=== PATIENT | female | born 1975 | race Caucasian/White ===

== ENCOUNTER 2019-07-04 08:47 | Emergency (ER) | payer SELFPAY ==
[2019-07-04 08:49] VITALS: BP 131/76; PULSE 99; RESP 18; TEMP 37; O2SAT 96; BMI 25.0
--- NOTE | 2019-07-04 09:04 | ED.VISSUMM ---
- ER Visit Summary Date of Service: 07/04/19 Chief Complaint: Right breast abscess History of Present Illness: The patient is a 43 F who presents with abscess to her right breast that is been getting progressively worse over the past 2 weeks. Patient states she is currently on Augmentin for this. Patient states that it began to drain a little bit last night. Patient presents today requesting incision and drainage of the abscess. Patient denies any fevers or chills. Patient admits to some nausea but denies any vomiting. Patient states the area is painful with palpation and pressure. Physical Examination: Vital signs are stable. Patient is afebrile. Patient is in no acute distress. Skin is warm and dry. There is a tender fluctuant area over the inferior aspect of the right breast. There is minimal purulent drainage. There is some induration and mild erythema around the abscess area. There is no streaking noted. Heart was regular rate and rhythm. Lungs are clear and equal bilaterally. Abdomen is soft and nontender. Emergency Department Course and Treatment: The area was cleaned and anesthetized with 1% plain lidocaine locally. The wound was opened with an 11 blade scalpel. A moderate amount of purulent drainage was expressed. Bacitracin gauze dressing was applied. Patient tolerated the procedure well. Patient was instructed to continue her Augmentin as previously prescribed. Patient was instructed to follow-up with the [facility] in 3-5 days for wound recheck. Patient understood and was agreeable with plan. All questions were answered. Disposition: Discharge home Impression: Right breast abscess This note was generated with [employer] dictation software. It may contain incorrect words, spelling, and punctuation that were not noted in review of the chart prior to signing ED Disposition - Plan for ED Patient: Disposition: Home or Assisted Living Diagnosis: Abscess of right breast Instructions: ABSCESS, Incision and Drainage Referrals: [facility] Styles,Maci Hernadez [Primary Care Provider] - 3-5 Days
[2019-07-04 10:14] VITALS: BP 128/62; PULSE 73; RESP 15; O2SAT 97
== END 2019-07-04 10:16 | disposition home or self-care (01) ==
PROVIDERS: Emergency Provider Emergency Medicine
DX: N61.1 Abscess of the breast and nipple (principal); F17.200 Nicotine dependence, unspecified, uncomplicated
CPT/HCPCS: 10060; 99283

== ENCOUNTER 2023-07-08 07:39 | Emergency (ER) | payer OTHER, SELFPAY ==
[2023-07-08 07:40] VITALS: BP 151/101; PULSE 108; RESP 16; TEMP 36.3; O2SAT 93; BMI 23.3
--- NOTE | 2023-07-08 08:09 | ED.VIS.BACK ---
HPI History of Present Illness Chief Complaint: Back Informant: patient Narrative Narrative: 47-year-old female brought to the emergency department chief complaint of upper back pain. Patient states that on Monday she was carrying a [employer] and she turned and had pain in the lower neck upper back. She states that it is very painful for her to move. She states that she has a burning sensation down the posterior aspect of her left arm and into her little and ring finger. She denies any muscle weakness. No fevers or rashes. Patient states that she has herniated disc in her low back that often cause episodic pain. She states that she has never had pain in this area. She has been trying I[employer] stretching and put a towel underneath her neck to see if that would help. She went to work today and was brought here by coworker for evaluation. She notes that she has been on prednisone in the past which has helped her low back but does not like the way it makes her feel. [facility] Medical History (Updated 07/08/23 @ 08:[address] Chirag Cuadra, DO) Lumbar disc herniation Home Medications cetirizine 10 mg capsule (Zyrtec) 10 mg PO DAILY 11/21/15 [History Last Taken Unknown] multivitamin (Daily Multiple tablet) 1 ea PO DAILY 11/24/15 [History Last Taken Unknown] B-complex with vitamin C 1 ea PO DAILY 01/08/17 [History Last Taken Unknown] prednisone 20 mg tablet 40 mg (2 x 20 mg) PO DAILY ##10 01/08/17 [Rx Last Taken Unknown] Amox-Clav 875-125 mg Tablet 1 tab PO BID 07/04/19 [History Last Taken Unknown] cyclobenzaprine 10 mg tablet 10 mg PO TID PRN Muscle Spasm #15 TABLETS 07/08/23 [Rx Last Taken Unknown] naproxen 500 mg tablet 500 mg PO BID #14 tabs 07/08/23 [Rx Last Taken Unknown] oxycodone-acetaminophen 5 mg-325 mg tablet 1 tab PO Q6H PRN PRN Pain 3 days #12 TABLETS 07/08/23 [Rx Last Taken Unknown] prednisone 20 mg tablet 40 mg (2 x 20 mg) PO DAILY #10 TABLETS 07/08/23 [Rx Last Taken Unknown] Allergy/AdvReac Type Severity Reaction Status Date / Time sulfamethoxazole AdvReac Nausea/Vom/ Verified 07/08/23 07:39 [From Bactrim] Diarrhea trimethoprim [From Bactrim] AdvReac Nausea/Vom/ Verified 07/08/23 07:39 Diarrhea Social History Smoking Status: Current every day smoker tobacco type: cigarettes ROS ROS ED Constitutional Constitutional ED: Denies chills, fever(s) or weight loss Eyes Eyes: Denies change in vision or diplopia ENT ENT ED: Denies ear pain, rhinorrhea or sore throat Cardiovascular Cardiovascular: Denies chest pain, orthopnea, palpitations or racing heartbeat Respiratory/Chest Respiratory/Chest: Denies cough, dyspnea or orthopnea Gastrointestinal Gastrointestinal: Denies abdominal pain, diarrhea, nausea or vomiting Genitourinary Genitourinary ED: Denies dysuria, hematuria or urinary frequency Musculoskeletal Musculoskeletal: Reports back pain and neck pain; Denies arthralgias or myalgias Integumentary Denies abscess or rash Neurologic Neurologic: Reports paresthesias LUE; Denies headache(s) or weakness Psychiatric Psychiatric: Denies anxiety, depression, suicidal ideation or suicidal thoughts Endocrine Endocrinology: Denies polydipsia, polyphagia or polyuria Allergic/Immunologic Allergic/Immunologic ED: Denies mouth swelling, tongue swelling or urticaria EXAM Physical Exam Const Vital Signs: 07/08/23 07:40 Temperature 97.3 F L Temperature Source Temporal Pulse Rate 108 H Respiratory Rate 16 Blood Pressure 151/101 H Blood Pressure Mean 117 Pulse Ox 93 Oxygen Delivery Method Room Air Positive well nourished and well developed General Appearance ED: well developed HEENT Reports normocephalic, head/scalp atraumatic and moist mucous membranes Eyes PERRL and EOMs intact bilaterally Neck no lymphadenopathy, supple and no JVD Neck Narrative: Left greater than right trapezius tenderness to palpation. Particularly in the C7-T1 region on the left. No rashes seen. No soft tissue swelling or erythema. Resp normal respiratory effort and clear to auscultation bilaterally Cardio regular rate, regular rhythm and no murmurs GI normal to inspection, nondistended, normoactive bowel sounds and non-tender Palpation: soft Back/Spine no CVA tenderness Back/Spine Narrative: Painful range of motion. Extremity normal to inspection General Extremety ED: Negative for edema General Extremity: Negative for edema Neuro oriented x3 and CN's II-XII intact bilaterally Neuro Narrative: Normal deep tendon reflex at the triceps. Sensation preserved. Strength preserved. Sensorium / Orientation: alert Motor Exam: strength 5/5 throughout Psych mental status grossly normal Mood & Affect: tearful; Negative for depressed Skin no rashes or lesions noted and no wounds MDM MDM MDM Narrative Medical decision making narrative: My independent interpretation of the plain films of the thoracic spine is no acute process. My independent interpretation of the plain films of the cervical spine is mild degenerative changes. Abnormal curvature. Patient received a dose of Toradol [place] and Norflex. She states that she has had improvement of her low back pain with prednisone in the past. I informed her that this appears to be more muscular spasm in nature. Prednisone may or may not be effective but she is going to try it. Also write for anti-inflammatories in the form of naproxen and I will also write for some cyclobenzaprine and Percocet. Patient is to continue home treatment of stretching heat and avoidance of strenuous activity. Work note for today. Follow-up if not Discharge Plan Triage Chief Complaint: Back ED Provider: Chirag Cuadra Dx/Rx/DC Orders Clinical Impression: Cervical radiculopathy, Cervical paraspinal muscle spasm Instructions: Cervical Radiculopathy, ED Neck Spasm, No Trauma Prescriptions: New cyclobenzaprine [cyclobenzaprine] 10 mg tablet 10 mg PO TID PRN (Reason: Muscle Spasm) Qty: 15 0RF oxycodone-acetaminophen [oxycodone-acetaminophen] 5-325 mg tablet 1 tab PO Q6H PRN PRN (Reason: Pain) 3 Days Qty: 12 0RF naproxen 500 mg tablet 500 mg PO BID Qty: 14 0RF prednisone 20 mg tablet 40 mg PO DAILY Qty: 10 0RF No Action cetirizine [Zyrtec] 10 MG capsule 10 mg PO DAILY multivitamin [Daily Multiple] 1 EACH tablet 1 ea PO DAILY B-complex with vitamin C 1 EACH tablet 1 ea PO DAILY prednisone 20 MG tablet 40 mg PO DAILY Qty: 10 0RF Amox-Clav 875-125 mg Tablet 1 tab PO BID Primary Care Provider: Care Physician,No Primary [facility] [Non-Staff] - 1 Week if not improving Disposition Disposition: Home, Self Care
--- NOTE | 2023-07-08 08:30 | RAD_ITS ---
HISTORY: pain. TECHNIQUE: XR Spine Cervical 2 or 3 Views. COMPARISON: None. FINDINGS: VERTEBRAE: Vertebral body heights maintained. No acute fracture identified. ALIGNMENT: 2 mm anterolisthesis of C3-4. Reversal of the cervical lordosis. INTERVERTEBRAL DISCS: Degenerative osteophytes and mild endplate change of C4-5, C5-6, and C6-7. SOFT TISSUES: No significant prevertebral soft tissue swelling. RAD/Cerv Spine 2 or 3 Views IMPRESSION: No acute fracture or dislocation identified in the cervical spine. Mild degenerative change. Electronically Signed: Sammi Kruse MD at 9:21 EST ,
--- NOTE | 2023-07-08 08:30 | RAD_ITS ---
HISTORY: pain. TECHNIQUE: XR Spine Thoracic 3 Views. COMPARISON: None. FINDINGS: VERTEBRAE: Vertebral body heights maintained. No acute fracture identified. ALIGNMENT: No significant anterior or posterior subluxation. INTERVERTEBRAL DISCS: Preservation of intervertebral disc spaces. SOFT TISSUES: Unremarkable paraspinal soft tissues. RAD/Thoracic Spine 3 Views IMPRESSION: No acute fracture or dislocation identified in the thoracic spine. Electronically Signed: Sammi Kruse MD at 9:21 EST ,
[2023-07-08] MEDS: HYDROcodone Bitartrate/Apap 5/325 Tablet PO (09:08)
[2023-07-08] MEDS: Orphenadrine 60 MG/2 ML Ampul IM (09:09)
[2023-07-08] MEDS: Ketorolac 60 MG/2 ML Vial IM (09:09)
[2023-07-08 09:15] VITALS: BP 108/79; PULSE 92; RESP 16; O2SAT 100
== END 2023-07-08 09:17 | disposition home or self-care (01) ==
LOC: ED 08:49
PROVIDERS: Emergency Provider Emergency Medicine; Visit Provider Emergency Medicine
DX: M47.22 Other spondylosis with radiculopathy, cervical region (principal); M62.830 Muscle spasm of back; F17.210 Nicotine dependence, cigarettes, uncomplicated
CPT/HCPCS: 72040; 72072; 96372; 99282

== ENCOUNTER → 2023-08-08 | Outpatient (CLI) | payer OTHER, SELFPAY ==
[2023-08-08 17:59] LABS: Absolute Lymphocyte Count 2.96 X10^3/uL (0.83-4.51); Basophil# 0.03 X10^3/uL; Basophil% 0.4 % (0-1); Eosinophils% 1.3 % (0-5); Hematocrit 41.7 % (37-47); Hemoglobin 13.3 g/dL (12.0-15.0); Lymphocyte # 2.96 X10^3/ul (0.83-4.51); Lymphocyte % 39.3 % (19-41); Mean Corp Hgb Conc 31.9 g/dL (32-36); Mean Corpuscular Hgb 30.2 pg (27.0-32.0); Mean Corpuscular Volume 94.8 fL (81-99); Mean Platelet Vol. 10.6 fl (6.2-12.0); Monocyte# 0.44 X10^3/uL; Monocyte% 5.8 % (0-10); NRBC Flagged by Analyzer 0 % (0-5); Neutrophil # 3.99 X10^3/uL (2.7-7.7); Neutrophil % 52.9 % (47-70); Platelet Count 267 K/mm3 (150-450); RBC Distribution Width CV 13.2 % (11.6-14.6); RBC Distribution Width SD 45.8 fl (35.1-43.9); White Blood Count 7.5 K/mm3 (4.4-11.0)
[2023-08-08 18:20] LABS: ALB/GLOB Ratio 1.3 RATIO (0.9-2.4); AST(SGOT) 17 U/L (15-37); Alanine Aminotransfer ALT/SGPT 31 U/L (13-56); Albumin, Serum 4.3 g/dL (3.2-5.0); Alkaline Phosphatase 84 U/L (45-117); Anion Gap 4 (5-15); BUN 16 mg/dL (7-18); BUN/Creat Ratio 27.1 RATIO (10-20); Calcium,Total 9.4 mg/dL (8.5-10.1); Chloride 110 mmol/L (98-107); Creatinine, Serum 0.59 mg/dL (0.55-1.02); EST Glomerular Filtration Rate 115 mL/min (>60); Est Glom Filt Rate - Afr Amer 140 mL/min (>60); Globulin 3.4 g/dL (2.2-4.2); Glucose 92 mg/dL (74-106); Potassium 3.7 mmol/L (3.5-5.1); Protein, Total 7.7 g/dL (6.4-8.2); Sodium Level 143 mmol/L (136-145); Thyroid Stim Hormone (TSH) 1.15 uIU/mL (0.358-3.74)
== END | disposition home or self-care (01) ==
LOC: BFHLAB 15:39
PROVIDERS: PCP Family Medicine; Visit Provider Family Medicine
DX: R63.4 Abnormal weight loss (principal); R79.89 Other specified abnormal findings of blood chemistry; N39.0 Urinary tract infection, site not specified; R31.9 Hematuria, unspecified
CPT/HCPCS: 36415; 80053; 84443; 85025

== ENCOUNTER → 2023-08-28 | Outpatient (CLI) | payer OTHER, SELFPAY ==
--- NOTE | 2023-08-28 09:13 | BI_ITS ---
MAMMOGRAPHY - UNILATERAL DIAGNOSTIC: LEFT BREAST REASON FOR EXAM: Female, 47 years old. Abnormal screening mammogram. PERTINENT HISTORY: Grandmother with breast cancer. TECHNIQUE: Digital unilateral breast dorys (3D mammographic acquisition) in the CC and MLO projections. 2-D mediolateral oblique (MLO) and craniocaudad (CC) views of both breasts were obtained. CAD: Full Field Digital Mammography with Computer Added Detection was performed. COMPARISON: Comparison is made with prior outside EXAMINATION October 25, 2022. FINDINGS: Breast Composition: There are scattered areas of fibroglandular density. There are no dominant masses or suspicious calcifications. The previously seen nodular density in the upper outer aspect of the left breast has almost completely resolved. Follow-up with ultrasound is recommended. No other significant abnormalities are identified. BI/DIAG MAMM W/CAD, UNILAT IMPRESSION: Interval decrease in size of the previously seen nodular density in the upper lateral aspect of the left breast. Correlation with ultrasound is recommended. ASSESSMENT CATEGORY: BIRADS Category 0: Incomplete. Need additional imaging evaluation. A letter regarding these results will be sent to the patient by the facility within 30 days. Approximately 10% of breast cancers are not detected by mammography. A normal mammogram should not delay biopsy of a clinically suspicious abnormality. Electronically Signed: Vish Jennings MD at 10:36 EST ,
--- NOTE | 2023-08-28 09:14 | US_ITS ---
STUDY: ULTRASOUND BREAST - LEFT REASON FOR EXAM: Female, 47 years old. Abnormal screening mammogram. TECHNIQUE: Axial and longitudinal images of the LEFT breast were performed with a high resolution ultrasound transducer. # OF IMAGES: 11 COMPARISON: Comparison is made with prior mammogram done earlier in the day. FINDINGS: LEFT Breast: The lateral anterolateral aspect of the left breast was examined with ultrasound. There is evidence of a 3 mm x 3 mm x 2 mm cyst at the 3:00 position of the breast at 1 cm from the nipple. US/Breast Limited Unilateral IMPRESSION: 3 mm x 3 mm x 2 mm cyst at the 2:00 position of the breast at 1 cm from nipple. ASSESSMENT CATEGORY: BIRADS Category 2: Benign. A letter regarding these results will be sent to the patient by the facility within 30 days. Electronically Signed: Vish Jennings MD at 10:38 EST ,
--- OUTSIDE RECORDS SUMMARY | 2023-08-28 09:33 | XMS RPT_ITS | CCD ---
Author Name Unknown Address [id number] [place] [address] Organization [facility] Care Team Providers Care Biblical Languages Professor Name Role Phone Virginie Arriaga LPN Unavailable Unavailable Virginie Ariraga LPN Unavailable Unavailable Unavailable Primary Care Provider Leonor Bragg MD, Edward Schumacher Primary Care Provider OLDER, KANDICE Attending Unavailable MAHSA, EDWARD Schumacher Primary Care Unavailable MAHSA, EDWARD Schumacher Referring Unavailable BRAGG, EDWARD Schumacher Primary Care Unavailable BRAGG, EDWARD Schumacher Referring Unavailable BRAGG, EDWARD Schumacher Primary Care Unavailable BRAGG, EDWARD Schumacher Referring Unavailable BRAGG, EDWARD Schumacher Primary Care Unavailable TON CONDE Attending Unavailable MAHSA, EDWARD Schumacher Referring Unavailable BRAGG, EDWARD Schumacher Primary Care Unavailable TON CONDE Attending Unavailable BRAGG, EDWARD Schumacher Referring Unavailable BRAGG, EDWARD Schumacher Primary Care Unavailable BRAGG, EDWARD Schumacher Attending Unavailable MAHSA, EDWARD Schumacher Primary Care Unavailable OLDER, KANDICE Attending Unavailable BRAGG, EDWARD Schumacher Primary Care Unavailable BRAGG, EDWARD Schumacher Primary Care Unavailable OLDER, KANDICE Referring Unavailable BRAGG, EDWARD Schumacher Primary Care Unavailable OLDER, KANDICE Referring Unavailable BRAGG, EDWARD Schumacher Primary Care Unavailable EBONY BERTRAND Attending Unavailable MAHSA, EDWARD Schumacher Primary Care Unavailable Medications Current Medications Medication Drug Class(es) Dates Sig (Normalized) Sig (Original) methocarbamol 500 mg oral tablet (1 source) Muscle Relaxant Start: 10-18-2022 End: 10-21-2022 take 1 tablet by mouth every six hours as needed methocarbamol (ROBAXIN) 500 mg tablet Take 1 tablet by mouth every 6 hours as needed (Pain) for up to 3 days. 12 tablet 0 10/18/2022 10/21/2022 Active Completed/Discontinued Medications Medication Drug Class(es) Dates Sig (Normalized) Sig (Original) amoxicillin/potassium clav (AUGMENTIN ORAL) (1 source) amoxicillin/pota ssium clav (AUGMENTIN ORAL) Take 875 mg by mouth. 0 Active Problems Active Problems Problem Classification Problem Date Documented Da te Episodic/Chronic Other skin disorders (1 source) Disorder of skin of lower limb; Translations: [Disorder of the skin and subcutaneous tissue, unspecified] Episodic Substance-related disorders (10 sources) Tobacco user; Translations: [Nicotine dependence, unspecified, uncomplicated] Onset: 12-31-2015 12-31-2015 Chronic Unclassified (1 source) Alcohol use disorder; Translations: [Alcohol use disorder] Onset: 10-19-2022 Past or Other Problems Problem Classification Problem Date Documented Date Episodic/Chronic Alcohol-related disorders (8 sources) 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; Translations: [Alcohol use, unspecified with alcohol-induced sleep disorder] Onset: 10-27-2022 Episodic Immunizations and screening for infectious disease (3 sources) Patient encounter status; Translations: [Encounter for immunization] Onset: 10-25-2022 Episodic Noninfectious gastroenteritis (1 source) Chronic diarrhea; Translations: [Noninfective gastroenteritis and colitis, unspecified] Onset: 06-23-2016 06-23-2016 Episodic Other liver diseases (4 sources) Elevated liver enzymes level; Translations: [Abnormal levels of other serum enzymes] Onset: 11-15-2022 Episodic Other nervous system disorders (2 sources) Other disturbances of skin sensation; Translations: [Other disturbances of skin sensation] Onset: 01-20-2017 01-20-2017 Episodic Other screening for suspected conditions (not mental disorders or infectious disease) (8 sources) Mammography abnormal; Translations: [Other abnormal and inconclusive findings on diagnostic imaging of breast] Onset: 10-25-2022 Episodic Residual codes; unclassified (8 sources) Alcoholism; Translations: [Alcohol use disorder] Onset: 10-19-2022 10-19-2022 Episodic Spondylosis; intervertebral disc disorders; other back problems (12 sources) Acute back pain with sciatica; Translations: [Lumbago with sciatica, right side] Onset: 10-19-2022 Episodic Unclassified (2 sources) Contact with and (suspected) exposure to other hazardous, chiefly nonmedicinal, chemicals; Translations: [Contact with and (suspected) exposure to other hazardous, chiefly nonmedicinal, chemicals] Onset: 01-20-2017 01-20-2017 Episodic Results Test Name Value Interpretation Reference Range Facil ity Vital Signs Date Time Vital Sign Value Performing Clinician Nathaly gaytan 11-15-2022 09:06-0400 Body weight 67.13 kg Kandice Older DISINTEGRATOR OPERATOR.MAIL CLERK Work Phone: [facility] 11-15-2022 09:06-0400 Diastolic blood pressure 76 mm[Hg] Kandice Older DISINTEGRATOR OPERATOR.MAIL CLERK Work Phone: [facility] 11-15-2022 09:06-0400 Heart rate 86 /min Kandice Older DISINTEGRATOR OPERATOR.MAIL CLERK Work Phone: [facility] 11-15-2022 09:06-0400 Respiratory rate 14 /min Kandice Older DISINTEGRATOR OPERATOR.MAIL CLERK Work Phone: [facility] 11-15-2022 09:06-0400 Systolic blood pressure 112 mm[Hg] Kandice Older DISINTEGRATOR OPERATOR.MAIL CLERK Work Phone: [facility] 10-18-2022 07:19-0400 Body temperature 97.5 [degF] Krislyn Aberegg PA Work Phone: [facility] 10-18-2022 07:19-0400 Body weight 68.13 kg Krislyn Aberegg PA Work Phone: [facility] 10-18-2022 07:19-0400 Diastolic blood pressure 78 mm[Hg] Krislyn Aberegg PA Work Phone: [facility] 10-18-2022 07:19-0400 Heart rate 83 /min Krislyn Aberegg PA Work Phone: [facility] 10-18-2022 07:19-0400 Respiratory rate 16 /min Krislyn Aberegg PA Work Phone: [facility] 10-18-2022 07:19-0400 SaO2% (BldA) [Mass fraction] 99 % Kan MACIEL Work Phone: [facility] 10-18-2022 07:19-0400 Systolic blood pressure 122 mm[Hg] Kan Guy PA Work Phone: [facility] 01-20-2017 09:01-0400 BMI (Body Mass Index) 23.5 kg/m2 Virginiecarmela Arriaga [facility] Work Phone: 01-20-2017 09:01-0400 Body Temperature 98.6 [degF] Virginie Arriaga [facility] Work Phone: 01-20-2017 09:01-0400 BP Diastolic 80 mm[Hg] Virginie Arriaga [facility] Work Phone: 01-20-2017 09:01-0400 BP Systolic 140 mm[Hg] Virginiecarmela Arriaga [facility] Work Phone: 01-20-2017 09:01-0400 Height 167.64 cm Virginie Arriaga [facility] Work Phone: 01-20-2017 09:01-0400 Pulse (Heart Rate) 83 /min Virginie Arriaga [facility] Work Phone: 01-20-2017 09:01-0400 Respiratory Rate 16 /min Virginie Arriaga [facility] Work Phone: 01-20-2017 09:01-0400 Weight 66.04 kg Virginie Arriaga [facility] Work Phone: Encounters Encounter Date Encounter Type Care Provider Facility Start: 12-06-2022 End: 12-06-2022 ambulatory KANDICE OLDER Facility[facility] Start: 12-06-2022 End: 12-06-2022 Subsequent hospital visit by physician [facility] Work Phone: Radiology Procedures Date Procedure Procedure Detail Performing Clinician Start: 12-06-2022 Us breast uni real t berenice with image limited Kandice Older DISINTEGRATOR OPERATOR.MAIL CLERK Work Phone: Start: 12-06-2022 Digital breast tomosynthesis bilateral Kandice Older DISINTEGRATOR OPERATOR.MAIL CLERK Work Phone: Start: 10-25-2022 Lipid 1996 panel - S maxine or Plasma [facility] 1 Work Phone: Start: 10-25-2022 End: 10-25-2022 Mammography Edward Velez Work Phone: Start: 07-31-2019 Mammography Kan MCAIEL Work Phone: Plan of Treatment Date Care Activity Detail Author Start: 11-15-2032 Urine microalbumin profile [facility] Start: 10-26-2027 Lipid 1996 panel - S maxine or Plasma Lipid Screening [facility] Start: 10-26-2027 LIPID SCREEN LIPID SCREEN [facility] Start: 10-25-2025 DIABETES SCREEN DIABETES SCREEN [facility] Start: 10-25-2025 Diabetes Screening Diabetes Screenin g [facility] Start: 12-07-2023 Mammography Mammogram Screening [facility] Start: 10-26-2023 Mammography MAMMOGRAM [facility] Start: 10-20-2023 COVID-19 VACCINE (3 - Booster for Pfizer series) COVID-19 VACCINE (3 - Booster for Pfizer series) [facility] Immunizations Immunization Date Immunization Notes Care Provider Fa cili 11-15-2022 pneumococcal (PCV20) vaccine, 20 valent (PREVNAR 20) Kandice Older DISINTEGRATOR OPERATOR.MAIL CLERK Work Phone: [facility] 11-15-2022 tetanus toxoid, redu juan diphtheria toxoid, and acellular pertussis vaccine, adsorbed Kandice Older DISINTEGRATOR OPERATOR.MAIL CLERK Work Phone: [facility] 11-15-2022 pneumococcal Conjuga te, unspecified formulation Kandice Older DISINTEGRATOR OPERATOR.MAIL CLERK Work Phone: [facility] Work Phone: 11-21-2020 COVID-19 original vaccine, age 12+ yr, monovalent (PFIZER-BIONTECH - PURPLE TOP) Kandice Older DISINTEGRATOR OPERATOR.MAIL CLERK Work Phone: [facility] 10-31-2020 COVID-19 original vaccine, age 12+ yr, monovalent (PFIZER-[employer] - PURPLE TOP) Kandice Older DISINTEGRATOR OPERATOR.MAIL CLERK Work Phone: [facility] 06-23-2016 influenza, injectabl e, quadrivalent, contains preservative Kan MACIEL Work Phone: [facility] 06-23-2016 influenza virus vacc ine, unspecified formulation Us 1 Work Phone: [facility] 12-31-2015 pneumococcal polysaccharide vaccine, 23 valent Kan MACIEL Work Phone: [facility] Social History Date Type Detail Facility Start: 07-17-1987 Tobacco smoking stat us DCIS Smokes tobacco daily [facility] Start: 07-17-1987 History of tobacco use Cigarette Smo ker [facility] Start: 10-18-2022 End: 11-28-2022 Cigarettes smoked current (pack per day) - Reported 1 [facility] Start: 10-18-2022 Tobacco use and exposure Smoke less tobacco non-user [facility] Start: 10-18-2022 Alcohol intake Current drinke r of alcohol (finding) [facility] Start: 10-18-2022 History SDOH Alcohol Frequency 5 [facility] Start: 10-18-2022 History SDOH Alcohol Std Drinks 2 [facility] Start: 10-18-2022 History SDOH Alcohol Binge 1 [facility] Start: 10-18-2022 History SDOH Physica l Activity DPW 7 [facility] Start: 10-18-2022 History SDOH Stress 3 [facility] Start: 01-27-2016 Alcohol Comment before bed [facility] Start: 1975 Sex Assigned At Not on file C [facility] Start: 10-19-2022 End: 11-15-2022 Alcohol intake Ex-drinker (finding) [facility] Start: 10-18-2022 End: 11-28-2022 Social connection and isolation panel [facility] Do you belong to any clubs or organizations such as mosque groups, unions, fraternal or athletic groups, or school groups? No [facility] Are you now , , , , never or living with a partner? [facility] How often to you hav e a drink containing alcohol? 4 or more times a week [facility] How many standard dr inks containing alcohol do you have on a typical day? 3 or 4 [facility] How often do you hav e 6 or more drinks on 1 occasion? Never [facility] How hard is it for y ou to pay for the very basics like food, housing, medical care, and heating Somewhat hard [facility] Adult Depression Scr eening Assessment 0 [facility] Work Phone: Do you feel stress - tense, restless, nervous, or anxious, or unable to sleep at night because your mind is troubled all the time - these days [OSQ] To some extent [facility] (I/We) worried whebrian er (my/our) food would run out before (I/we) got money to buy more. Sometimes true [facility] The food that (I/we) bought just didn't last, and (I/we) didn't have money to get more. Never true [facility] Clinical Notes 06-23-2016 to 06-07-2023 Kelly Chavez, RDMS - 12/06/2022 8:30 AM Marisabel Villanueva Mammo Tech - 12/06/2022 8:00 AM EDTPatient Estrellita Mario APRN.MAIL CLERK - 11/15/2022 9:26 AM EDT Note Date & Type Note Facility 06-07-2023 Note HNO ID: [id number] Author: Janet Black Service: ? Author Type: ? Type: Progress Notes Filed: 06/07/2023 7:39 AM Note Text: 06-07 mailed colonoscopy letter. Janet Black [facility] 06-03-2023 Note HNO ID: [id number] Author: Janet Black Service: ? Author Type: ? Type: Progress Notes Filed: 06/03/2023 1:09 PM Note Text: 06-03. Failed attempt to schedule colonoscopy. LVM to return call. Janet Black [facility] 04-06-2023 Note HNO ID: [id number] Author: Janet Black Service: ? Author Type: ? Type: Progress Notes Filed: 04/06/2023 9:23 AM Note Text: 04-06 failed attempt to schedule colonoscopy. Left msg to return call. IS [facility] 12-26-2022 Note HNO ID: [id number] Author: Janet Black Service: ? Author Type: ? Type: Progress Notes Filed: 12/26/2022 11:41 AM Note Text: 12-26... contacted patient she will call when ready to schedule. She wanted the Esphionytely Bowel Prep Instructions which I sent to her MyChart along with our phone number. Janet Black [facility] 12-06-2022 Note HNO ID: [id number] Author: Kelly Chavez RDMS Service: ? Author Type: Lamp Wirer Type: Progress Notes Filed: 12/06/2022 9:21 AM Note Text: Radiology Service Progress Note PATIENT NAME: Rosario Wyatt DATE OF SERVICE: December 06, 2022 TIME: 9:20 AM PATIENT IDENTITY VERIFICATION COMPLETED USING TWO (2) IDENTIFIERS: Name and Date of confirmed by patient verbally. FALL SCREENING: Has the patient had 2 falls in the last year or 1 fall with injury or currently using an Ambulatory Assistive Device (Walker, Cane, Wheelchair, Crutches, etc.)? No PATIENT GENDER DATA: Female. status: : No status: NO. PATIENT RELEVANT IMPLANT DATA REVIEWED: Not Applicable RADIOLOGY DEPARTMENT: Ultrasound PERIPHERAL IV DATA: Not applicable SIGNED BY: Kelly Chavez RDMS RVT December 06, 2022 9:20 AM [facility] 12-06-2022 Note HNO ID: [id number] Author: Marisabel Drake, [employer] Service: ? Author Type: Electrical And Instrument Engineer Type: Progress Notes Filed: 12/06/2022 8:09 AM Note Text: Radiology Service Progress Note PATIENT NAME: Rosario Wyatt DATE OF SERVICE: December 06, 2022 TIME: 7:51 AM PATIENT IDENTITY VERIFICATION COMPLETED USING TWO (2) IDENTIFIERS: Name and Date of confirmed by patient verbally. FALL SCREENING: Has the patient had 2 falls in the last year or 1 fall with injury or currently using an Ambulatory Assistive Device (Walker, Cane, Wheelchair, Crutches, etc.)? No PATIENT GENDER DATA: Female. status: : No status: NO. PATIENT RELEVANT IMPLANT DATA REVIEWED: Not Applicable RADIOLOGY DEPARTMENT: Mammography PERIPHERAL IV DATA: Not applicable SIGNED BY: You Larsono Eron December 06, 2022 7:51 AM [facility] 12-06-2022 History of Presen t illness Narrative Radiology Service Progress Note PATIENT NAME: Rosario Wyatt DATE OF SERVICE: December 06, 2022 TIME: 9:20 AM PATIENT IDENTITY VERIFICATION COMPLETED USING TWO (2) IDENTIFIERS: Name and Date of confirmed by patient verbally. FALL SCREENING: Has the patient had 2 falls in the last year or 1 fall with injury or currently using an Ambulatory Assistive Device (Walker, Cane, Wheelchair, Crutches, etc.)? No PATIENT GENDER DATA: Female. status: : No status: NO. PATIENT RELEVANT IMPLANT DATA REVIEWED: Not Applicable RADIOLOGY DEPARTMENT: Ultrasound PERIPHERAL IV DATA: Not applicable SIGNED BY: Kelly Chavez RDMS RVT December 06, 2022 9:20 AM documented in this encounter [facility] 12-06-2022 History of Presen t illness Narrative Radiology Service Progress Note PATIENT NAME: Rosario Wyatt DATE OF SERVICE: December 06, 2022 TIME: 7:51 AM PATIENT IDENTITY VERIFICATION COMPLETED USING TWO (2) IDENTIFIERS: Name and Date of confirmed by patient verbally. FALL SCREENING: Has the patient had 2 falls in the last year or 1 fall with injury or currently using an Ambulatory Assistive Device (Walker, Cane, Wheelchair, Crutches, etc.)? No PATIENT GENDER DATA: Female. status: : No status: NO. PATIENT RELEVANT IMPLANT DATA REVIEWED: Not Applicable RADIOLOGY DEPARTMENT: Mammography PERIPHERAL IV DATA: Not applicable SIGNED BY: You Larsono Eron December 06, 2022 7:51 AM documented in this encounter [facility] 11-28-2022 Note HNO ID: [id number] Author: Ebnoy Bertrand APRN.ESPERANZA Service: ? Author Type: Nurse Practitioner Type: Progress Notes Filed: 12/05/2022 2:35 PM Note Text: Department of Dermatology Ebony Bertrand APRN.CNP 11/28/2022 Last visit in Dermatology: Visit date not found Objective/Assessment/Plan 1. Neoplasm of unspecified behavior of bone, soft tissue, and skin Left Thigh - Anterior [id number] erythematous dome shaped papule SKIN / NAIL BIOPSY Type of biopsy: tangential Informed consent: discussed and consent obtained Timeout: patient name, date of , surgical site, and procedure verified Procedure prep: Patient was prepped and draped in usual sterile fashion Prep type: Isopropyl alcohol Anesthesia: the lesion was anesthetized in a standard fashion Anesthetic: 1% lidocaine w/ epinephrine 1-100,000 local infiltration Instrument used: DermaBlade Hemostasis achieved with: aluminum chloride Outcome: patient tolerated procedure well Post-procedure details: sterile dressing applied Dressing type: bandage and petrolatum Specimen A - SURGICAL PATHOLOGY SKIN ONLY 2. Seborrheic keratosis (2) Left Leg, Right Leg Stuck-on verrucous, variably pigmented papules and plaques. Observational course. Monitor for growth and changes. Follow-up as noted below or as needed. Ebony Bertrand APRN.ESPERANZA Chief Complaint: Patient presents with: LESION, SKIN Subjective and Objective HPI: Rosario Wyatt is a 47 year old female who presents for: For individual lesion(s). Lesion(s): growth Location(s): left upper leg Duration: year and half Symptoms: itches, tender to touch and increasing in size Severity: n/a Inciting factors: patient states she has cut area off several times and it grows back bigger Associated symptoms/previous treatments: none Past medical history is reviewed. Medication list is reviewed. Physical Exam included: Bilateral lower extremities UNIVERSAL PROTOCOL / SAFETY CHECKLIST Procedure to be Performed: Shave Biopsy x1 Sign In: A Moment of CARE was completed. Personnel directly involved with the procedure wore the appropriate PPE (Personal Protective Equipment). No special equipment needed. Patient/Surrogate Stated/Verified: PATIENT VERIFIED(optional for EMERGENT procedures): Patient name, Date of , Relevant allergies, and The intended procedure Time Out Communication: Intended patient and procedure match the source documents. Consent documented and matches the intended procedure. No relevant labs, photos, and/or imaging studies were applicable for review. Correct side/site marked and visible. Medications required for procedure verified. Fire risk assessed and interventions discussed. No implant(s) inserted. Sign Out: SIGN OUT (optional for EMERGENT procedures): All specimen containers correctly labeled. All instruments, equipment, possible retained foreign bodies accounted for. Post-procedure follow-up management communicated and Plan of Care Visit completed when applicable. Karissa Bolanos LPN Intake completed by ROSARIO Cain APRN.MAIL CLERK [facility] 11-15-2022 Note HNO ID: [id number] Author: Kandice Mario APRN.MAIL CLERK Service: ? Author Type: Nurse Practitioner Type: Progress Notes Filed: 11/15/2022 11:37 AM Note Text: CC: Patient presents with: 4 week follow up - back pain, lab results HPI Rosario Wyatt is a 46 year old female who presents today for above. She was seen 10/18 in urgent care for acute low back pain after lifting something heavy. X-ray was normal. Given prednisone burst with taper and referred to PT. She had two therapy appointments and back pain has resolved. She has a growth on the inside of her left thigh present for over one year. She clips it off but continues to grow back, has become much larger. It is not painful but does catch on her clothes. REVIEW OF SYSTEMS See HPI PAST MEDICAL HISTORY Diagnosis Date Arthritis 12/31/2015 history of DJD neck, back Cervical disc disorder with radiculopathy 09/26/2009 Right shoulder Chronic diarrhea 06/23/2016 Herniated lumbar intervertebral disc 10/11/2006 History of neck injury 05/13/2014 Nipple discharge Pneumonia 08/30/2015 Uterine fibroid 10/23/2007 PAST SURGICAL HISTORY Procedure Laterality Date EXCISION PILONIDAL CYST/SINUS SIMPLE 1998 HYSTERECTOMY HX AZ-BSO benign PAST SURGICAL HISTORY OF Right 10/2016 breast abscess S BALLOON,UTERINE ABLATION 17571 2007 TUBAL LIGATION HX 1995 ALLERGIES Patient has no known allergies. MEDICATIONS traZODone (DESYREL) 50 mg tablet Take 1 tablet by mouth every evening. (Patient not taking: Reported on 11/15/2022) Ibuprofen 100 mg tablet Take 100 mg by mouth every 6 hours as needed. multivitamin tablet Take 1 tablet by mouth once daily. FAMILY HISTORY Problem Relation Age of Onset Arthritis Mother COPD Mother Heart Mother Alcohol/Drug Mother Hypertension Mother other (Other) Mother uterine cancer None Father not known other (heart disease) Paternal Grandfather Diabetes Maternal Grandmother Breast Cancer Paternal Grandmother Social History Tobacco Use Smoking status: Every Day Packs/day: 1.00 Years: 28.00 Pack years: 28.00 Types: Cigarettes Start date: 07/17/1987 Smokeless tobacco: Never Substance Use Topics Alcohol use: Not Currently Alcohol/week: 8.0 standard drinks Types: 8 Cans of Beer (12oz) per week Drug use: No PHYSICAL EXAM BP 112/76 Pulse 86 Resp 14 Wt 67.1 kg (148 lb) BMI 24.18 kg/m? General Appearance: well appearing, in no acute distress, alert Health maintenance reviewed with patient: HEPATITIS B(1 of 3 - 3-dose series) Never done DTAP,TDAP,TD(1 - Tdap) Never done PNEUMOCOCCAL(2 - PCV) due on 12/30/2016 COLORECTAL CANCER SCREENING Never done COVID-19 VACCINE(3 - Booster for Pfizer series) due on 10/20/2023 INFLUENZA(Season Ended) due on 03/17/2023 MAMMOGRAM due on 10/26/2023 DIABETES SCREEN due on 10/25/2025 LIPID SCREEN due on 10/26/2027 DEPRESSION ASSESSMENT Completed HEPATITIS C SCREENING Completed HIV SCREENING Completed PAP TESTING Discontinued HPV TESTING Discontinued DATA REVIEWED: Most recent labs ASSESSMENT/PLAN: 1. Skin lesion of left leg - ICD9: 709.9, ICD10: L98.9 (primary diagnosis) Cutaneous horn? Referred to dermatology for removal and possible biopsy. - CONSULT TO DERMATOLOGY 2. Acute back pain with sciatica, right - ICD9: 724.3, ICD10: M54.41 Resolved 3. Elevated liver enzymes - ICD9: 790.5, ICD10: R74.8 Slightly elevated. Patient drinks two white claws a night. Advised patient recommended serving of alcohol for women is no more than one a day, encouraged her to cut back on alcohol consumption. Will continue to monitor, recheck in 6 months 4. Special screening for malignant neoplasms, colon - ICD9: V76.51, ICD10: Z12.11 - COLONOSCOPY SCREENING - PEG 3350 240 GRAM-ELECTROLYTES 22.72 GRAM-6.72 G-5.84 G POWDR FOR SOLN 5. Encounter for immunization - ICD9: V03.89, ICD10: Z23 - TDAP VACCINE, AGE 7+ YR (ADACEL, BOOSTRIX) - PNEUMOCOCCAL VACCINE (PREVNAR 20) Prescription instructions reviewed with patient as applicable. Potential red flag symptoms discussed with the patient. Reviewed appropriate action plan to take if red flag symptoms occur. Patient agreeable to treatment plan. Kandice Mario APRN.CNP [facility] OPEN ACCESS QUESTIONNAIRE 1. Are you currently having any new or unusual stomach/gastrointestinal issues at this time such as constipation, diarrhea, abdominal pain, rectal bleeding etc?No 2. Do you have any difficulty swallowing? No 3. Do you have any implanted devices such as a defibrillator, pacemaker, cardiac stents or deep brain stimulator? No 4. Do you take any Blood thinners such as Coumadin, Plavix, Xarelto, Eliquis, Brilinta or any other blood thinner? No 5. Do you have any new or past cardiac (heart) or pulmonary (lung) issues? No 6. Do you currently use any oxygen? No 7. Have you been hospitalized in the past 6 weeks? No 8. Have you had difficulty with anesthesia previously re: Diffic (more content not included)... [facility] 11-15-2022 Instructions Kandice Mario APRN.ESPERANZA - 11/15/2022 9:33 AM EDT Health Information For Patients and the Community How to Prepare for Your Colonoscopy Using Golytely, Nulytely, Trilyte or Colyte Preparations IMPORTANT - Please Read These Instructions at Least 2 Weeks Before Your Colonoscopy Ash Instructions: ?Your bowel must be empty so that your doctor can clearly view your colon. Follow all of the instructions in this handout EXACTLY as they are written. If you do NOT follow the directions for when to start drinking the bowel preparation (see next page), your colonoscopy WILL be cancelled. ?Do NOT eat any solid food the ENTIRE day before your colonoscopy. ?Buy your bowel preparation at least 5 days before your colonoscopy. ?Do NOT mix the solution until the day before your colonoscopy. Designated Roofing Foreman on the Day of Your Exam A responsible family member or friend MUST come with you to your colonoscopy and REMAIN in the endoscopy area until you are discharged! You are NOT ALLOWED to drive, take a taxi or bus, or leave the Endoscopy Center ALONE. If you do not have a responsible driver trainer (family member or friend) with you to take you home, your exam cannot be done with sedation and will be cancelled. Medications Some of the medicines you take may need to be stopped or adjusted before your colonoscopy. You MUST call the doctor who ordered any of the following medicines at least 2 weeks before your colonoscopy. ?Blood thinners -- such as Coumadin (warfarin), Plavix (clopidogrel), Ticlid (ticlopidine hydrochloride), Agrylin (anagrelide), Xarelto (Rivaroxaban), Pradaxa (Dabigatran), Eliquis (Apixaban), and Effient (Prasugrel). ?Insulin or diabetes pills. Please call the doctor that monitors your glucose levels. Your insulin dosage may need to be adjusted due to the diet restrictions required with this bowel preparation. (Please bring your diabetes medicines with you on the day of your procedure.) If you take aspirin, take it and ALL other medications prescribed by your doctor. On the day of your colonoscopy, take your medications with a sip of water. Revised 08/2016 1 Five (5) Days Before Your Colonoscopy ?Do NOT take medicines that stop diarrhea -- such as Imodium , Kaopectate , or Pepto Bismol . ?Do NOT take fiber supplements -- such as Metamucil , Citrucel , or Perdiem . ?Do NOT take products that contain iron -- such as multi-vitamins -- (the label lists what is in the products). ?Do NOT take vitamin E. Buy the prescription bowel preparation solution at your local pharmacy or drugstore pharmacy. Three (3) Days Before Your Colonoscopy Do NOT eat high-fiber foods -- such as popcorn, beans, seeds (flax, sunflower, quinoa), multigrain bread, nuts, salad/vegetables, or fresh and dried fruit. One (1) Day Before Your Colonoscopy Only drink clear liquids the ENTIRE DAY before your colonoscopy. Do NOT eat any solid foods. Drink at least 8 ounces of clear liquids every hour after waking up. The clear liquids you can drink include: ?water, apple, or white grape juice; broth; coffee or tea (without milk or creamer); clear carbonated beverages such as elana sang or lemon-belkofski soda; Gatorade or other sports drinks (not red); Mario Alberto-Aid or other flavored drinks (not red). You may eat plain jello or other gelatins (not red) or popsicles (not red). Do NOT drink alcohol on the day before or the day of the procedure. 2 Revised 08/2016 When to Mix and Drink Your Bowel Prep Follow the instructions on the label. After mixing, place the solution in the refrigerator for a couple of hours before drinking. You may add the flavor packet that came with the bowel preparation. DO NOT add ice, sugar or any flavorings to the solution. Evening Before Your Colonoscopy ?Start drinking the bowel preparation at 6 PM the evening before your colonoscopy. Drink an 8-oz glass of bowel preparation every 10 minutes. You must finish drinking the solution by 9 PM the night before your scheduled procedure. ?You may continue to drink clear liquids only until midnight. Do NOT eat or drink ANYTHING after midnight the night before your procedure or your procedure may be cancelled. This is for your safety and will reduce the risk of having any food or liquid in your stomach move into your lungs (aspiration) during a procedure. If you take aspirin, take it and ALL other prescribed medicines with a sip of water on the day of your colonoscopy. Contact Information: If you are unable to keep your appointment or have any questions about the instructions, please call the facility where the procedure is being performed. Call between the hours of 8:00 AM and 5:00 PM. If you are calling after 5:00 PM, please call Nurse luncheonette operator at [phone]. [facility] [address] [place] [id number] Index # [id number] Revised 08/2016 3 Colonoscopy Procedure Overview Please Read Prior to the Procedure What is a Colonoscopy A colonoscopy is an outpatient procedure in which the inside of the large intestine (colon and rectum) is examined. A colonoscopy is commonly used to evaluate gastrointestinal symptoms, such as rectal and intestinal bleeding, abdominal pain, or changes in bowel habits. Colonoscopies are also performed in individuals without symptoms to check for colorectal polyps or cancer. A screening colonoscopy is recommended for anyone 50 years of age and older, and for anyone with parents, siblings or children with a history of colorectal cancer or polyps. What Happens Before a Colonoscopy To have a successful colonoscopy, your bowel must be empty so that your physician can clearly view the colon. To do this, it is very important to read and follow all of the instructions given to you at least 2 weeks BEFORE your exam. If your bowel is not empty, your colonoscopy will not be successful and may have to be repeated. If you feel nauseated or vomit while taking the bowel preparation, wait 30 minutes before drinking more fluid and start with small sips of solution. Some activity (such as walking) or a few soda crackers may help decrease the nausea you are feeling. If the nausea persists, please contact nurse master control supervisor at [phone]. You may experience skin irritation around the anus due to the passage of liquid stools. To prevent and treat skin irritation, you should: ?Apply Vaseline or Desitin ointment to the skin around the anus before drinking the bowel preparation medications. These products can be purchased at any [employer]. ?Wipe the skin after each bowel movement with disposable wet wipes instead of toilet paper. These are found in the toilet paper area of the store. ?Sit in a bathtub filled with warm water for 10 to 15 minutes after you finish passing a stool; after soaking, blot the skin dry with a soft cloth, apply Vaseline or Desitin ointment to the anal area, and place a cotton ball just outside your anus to absorb leaking fluid. What Happens During a Colonoscopy During a colonoscopy, an experienced physician uses a colonoscope (a long, flexible instrument about 1/2 inch in diameter) to view the lining of the colon. The colonoscope is inserted into the rectum and advanced through the large intestine. If necessary during a colonoscopy, small amounts of tissue can be removed for analysis (a biopsy) and polyps can be identified and entirely removed. In many cases, a colonoscopy allows accurate diagnosis and treatment of colorectal problems without the need for a major operation. Revised 08/2016 5 ?You are asked to wear a hospital gown and an IV will be started. ?You are given a pain reliever and a sedative intravenously (in your vein). You will feel relaxed and somewhat drowsy. ?You will lie on your left side, with your knees drawn up towards your chest. ?A small amount of air is used to expand the colon so the physician can see the colon madrigal. ?You may feel mild cramping during the procedure. Cramping can be reduced by taking slow, deep breaths. ?The colonoscope is slowly withdrawn while the lining of your bowel is carefully examined. ?The procedure lasts from 30 minutes to 1 hour. What Happens After a Colonoscopy ?You will stay in a recovery room for observation until you are ready for discharge. ?You may feel some cramping or a sensation of having gas, but this quickly passes. ?If sedation has been given, a responsible family member or friend must drive you home. ?Avoid alcohol, driving, and operating machinery for 24 hours following the procedure. ?Unless otherwise instructed, you may immediately return to your normal diet. We recommend you wait until the day after your procedure to resume normal activities. ?If polyps were removed or a biopsy was taken, the physician performing your colonoscopy will tell you when it is safe to resume taking your blood thinners. ?If a biopsy was taken or a polyp was removed, you may notice a little amount of rectal bleeding for 1 to 2 days after the procedure. If you have a large amount of rectal bleeding, high or persistent fevers, or severe abdominal pain within the next 2 weeks, please go to your local emergency room and call the physician who performed your exam. 6 Revised 08/2016 Copyright [id number] [facility]. All rights reserved. Revised 08/2016 documented in this encounter [facility] 11-15-2022 History of Presen t illness Narrative Images from the original note were not included. CC: Patient presents with: 4 week follow up - back pain, lab results HPI Rosario Wyatt is a 46 year old female who presents today for above. She was seen 10/18 in urgent care for acute low back pain after lifting something heavy. X-ray was normal. Given prednisone burst with taper and referred to PT. She had two therapy appointments and back pain has resolved. She has a growth on the inside of her left thigh present for over one year. She clips it off but continues to grow back, has become much larger. It is not painful but does catch on her clothes. REVIEW OF SYSTEMS See HPI PAST MEDICAL HISTORY Diagnosis Date Arthritis 12/31/2015 history of DJD neck, back Cervical disc disorder with radiculopathy 09/26/2009 Right shoulder Chronic diarrhea 06/23/2016 Herniated lumbar intervertebral disc 10/11/2006 History of neck injury 05/13/2014 Nipple discharge Pneumonia 08/30/2015 Uterine fibroid 10/23/2007 PAST SURGICAL HISTORY Procedure Laterality Date EXCISION PILONIDAL CYST/SINUS SIMPLE 1998 HYSTERECTOMY HX AZ-BSO benign PAST SURGICAL HISTORY OF Right 10/2016 breast abscess S BALLOON,UTERINE ABLATION [id number] TUBAL LIGATION HX 1995 ALLERGIES Patient has no known allergies. MEDICATIONS traZODone (DESYREL) 50 mg tablet Take 1 tablet by mouth every evening. (Patient not taking: Reported on 11/15/2022) Ibuprofen 100 mg tablet Take 100 mg by mouth every 6 hours as needed. multivitamin tablet Take 1 tablet by mouth once daily. FAMILY HISTORY Problem Relation Age of Onset Arthritis Mother COPD Mother Heart Mother Alcohol/Drug Mother Hypertension Mother other (Other) Mother uterine cancer None Father not known other (heart disease) Paternal Grandfather Diabetes Maternal Grandmother Breast Cancer Paternal Grandmother Social History Tobacco Use Smoking status: Every Day Packs/day: 1.00 Years: 28.00 Pack years: 28.00 Types: Cigarettes Start date: 07/17/1987 Smokeless tobacco: Never Substance Use Topics Alcohol use: Not Currently Alcohol/week: 8.0 standard drinks Types: 8 Cans of Beer (12oz) per week Drug use: No PHYSICAL EXAM BP 112/76 Pulse 86 Resp 14 Wt 67.1 kg (148 lb) BMI 24.18 kg/m General Appearance: well appearing, in no acute distress, alert Health maintenance reviewed with patient: HEPATITIS B(1 of 3 - 3-dose series) Never done DTAP,TDAP,TD(1 - Tdap) Never done PNEUMOCOCCAL(2 - PCV) due on 12/30/2016 COLORECTAL CANCER SCREENING Never done COVID-19 VACCINE(3 - Booster for Pfizer series) due on 10/20/2023 INFLUENZA(Season Ended) due on 03/17/2023 MAMMOGRAM due on 10/26/2023 DIABETES SCREEN due on 10/25/2025 LIPID SCREEN due on 10/26/2027 DEPRESSION ASSESSMENT Completed HEPATITIS C SCREENING Completed HIV SCREENING Completed PAP TESTING Discontinued HPV TESTING Discontinued DATA REVIEWED: Most recent labs ASSESSMENT/PLAN: 1. Skin lesion of left leg - ICD9: 709.9, ICD10: L98.9 (primary diagnosis) Cutaneous horn? Referred to dermatology for removal and possible biopsy. - CONSULT TO DERMATOLOGY 2. Acute back pain with sciatica, right - ICD9: 724.3, ICD10: M54.41 Resolved 3. Elevated liver enzymes - ICD9: 790.5, ICD10: R74.8 Slightly elevated. Patient drinks two white claws a night. Advised patient recommended serving of alcohol for women is no more than one a day, encouraged her to cut back on alcohol consumption. Will continue to monitor, recheck in 6 months 4. Special screening for malignant neoplasms, colon - ICD9: V76.51, ICD10: Z12.11 - COLONOSCOPY SCREENING - PEG 3350 240 GRAM-ELECTROLYTES 22.72 GRAM-6.72 G-5.84 G POWDR FOR SOLN 5. Encounter for immunization - ICD9: V03.89, ICD10: Z23 - TDAP VACCINE, AGE 7+ YR (ADACEL, BOOSTRIX) - PNEUMOCOCCAL VACCINE (PREVNAR 20) Prescription instructions reviewed with patient as applicable. Potential red flag symptoms discussed with the patient. Reviewed appropriate action plan to take if red flag symptoms occur. Patient agreeable to treatment plan. Kandice Mario, SANG.MAIL CLERK [facility] OPEN ACCESS QUESTIONNAIRE 1. Are you currently having any new or unusual stomach/gastrointestinal issues at this time such as constipation, diarrhea, abdominal pain, rectal bleeding etc?No 2. Do you have any difficulty swallowing? No 3. Do you have any implanted devices such as a defibrillator, pacemaker, cardiac stents or deep brain stimulator? No 4. Do you take any Blood thinners such as Coumadin, Plavix, Xarelto, Eliquis, Brilinta or any other blood thinner? No 5. Do you have any new or past cardiac (heart) or pulmonary (lung) issues? No 6. Do you currently use any oxygen? No 7. Have you been hospitalized in the past 6 weeks? No 8. Have you had difficulty with anesthesia previously re: Difficult intubation? No Other difficulty or allergic reaction to anesthesia other than post op N/V? No 9. Are you on dialysis? No 10. Do you have any bleeding disorders such as hemophilia or Factor 5? No 11. Are you an Insulin Dependent Diabetic? NA IF ANY OF THE TOP ELEVEN QUESTIONS ARE ANSWERED YES PLEASE SCHEDULE THE PATIENT FOR A CONSULT. N/A 12. Is the patient's BMI 40 or greater? No:Body mass index is 24.18 kg/m .. 13. Do you take any narcotics or anti-Anxiety medications? No 14. Do you use any illegal or recreational drugs including marijuana? No 15. Any alcohol use: YES: What type of alcohol, how much and how often do you drink? : two cans of white claw nightly 16. Have you been diagnosed with chronic liver disease such as hepatitis or cirrhosis? No 17. Do you have a seizure disorder? No 18. Do you have ulcerative colitis or Crohn's disease? No 19. Are you or could you be ? No 20. Any other important health information we should be made aware of prior to your colonoscopy? No To be completed by LIP: Did patient have MAC anesthesia with a previous endoscopy procedure? No Patient appropriate for Open Access Colonoscopy: Yes: appropriate for Open Access Procedure Checklist: Prior to closing the encounter: Complete questionnaire: Yes Confirm Prep order has been Ordered/Pended: Yes. Patient's procedure could be delayed if not given the script for the prep. Please ensure the prep is escripted to pharmacy or printed. Instructions for the prep will print upon filing or pending this smartset. Please send all open access questionnaires to [facility] Pool #[id number] documented in this encounter [facility] 11-08-2022 Note HNO ID: [id number] Author: Ton Conde PT Service: ? Author Type: Physical Therapist Type: Progress Notes Filed: 11/08/2022 3:38 PM Note Text: Episode Visit Count: 2 Therapist That Will Accept/Oversee The Plan Of Care: Ton Conde PT Start of Care Date: 11/01/22 Onset Date: 10/15/22 (first onset 2006 but this episode began 10/15/22) Plan of Care Certification Date: 11/01/22 Next Certification Due Date: 12/06/22 Patient Identified by Name and Date of : Yes REHABILITATION AND SPORTS THERAPY PHYSICAL THERAPY TREATMENT NOTE ASSESSMENT: Rosario Wyatt tolerated the session with fatigue, expected muscle soreness, and no issues. She demonstrated improvements in pain, posture, exercise tolerance and gait. The patient will continue to benefit from ongoing skilled physical therapy to progress toward set goals. PLAN FOR NEXT VISIT: Continue with postural stretching and strengthening with extension directional preference. Continue postural correction. Progress therex in the department and HEP to tolerance. SUBJECTIVE: Patient Reason for Visit: Pt reports that overall she is pleasantly surprised by how much the HEP has helped. She reports compliance with HEP 2-3x day and that not only has HEP helped to decrease her symptoms, but it also allows her to manage flare ups by eliminating pain. She reports and demonstrates increased postural awareness and alignment. She reports that she is walking better and completing work tasks better. She reports that symptoms are now intermittent instead of constant. Pain: Pain Pain Level: 4 Pain Location: Low Back/Lumbar Spine - Right Description: Stiffness Frequency: Intermittent Post Treatment Pain Post Treatment Pain Level: No Change Post Treatment Symptoms: During and after session pt reported considerable fatigue but no increase in pain. Overall she is feeling much better and this pleases her. OBJECTIVE MEASURES WITH LEVEL OF FUNCTION: TREATMENT: Therapeutic Exercise: 1: prone lying x3 minutes 2: prone on elbows x3 minutes 3: prone press ups x10 and 1x10 with exhale at end range 4: *prone B alt hip ext SLR 2x10 5: *modified kneeling plank 3x30 seconds 6: *bridging 2x10 7: crunches in small range 2x10 8: back extension machine 50# 3x10 9: stirring the pot at Hoist 1 plate x10 CW and x10 CCW facing both lateral directions. 10: seated facing Hoist, pull downs with yamilet overhead elbows held in extension 1 plate plus 4 round 3x10 Skilled Intervention: Patient was educated in proper exercise technique and purpose for exercises. Reviewed and educated patient on additions/changes for home exercise program as above (*). Skilled judgment was provided in selection of appropriate interventions. Provided written instruction for home exercise program to facilitate proper performance and compliance. Correct performance of therapeutic exercises was facilitated with verbal, visual, and tactile cuing. Patient education as noted. Billing Therapeutic Exercise Treatment Minutes: 45 Total Treatment Time Minutes (timed/untimed): 45 Ton Conde, PT [facility] 11-08-2022 History of Presen t illness Narrative Episode Visit Count: 2 Therapist That Will Accept/Oversee The Plan Of Care: Ton Conde PT Start of Care Date: 11/01/22 Onset Date: 10/15/22 (first onset 2006 but this episode began 10/15/22) Plan of Care Certification Date: 11/01/22 Next Certification Due Date: 12/06/22 Patient Identified by Name and Date of : Yes REHABILITATION AND SPORTS THERAPY PHYSICAL THERAPY TREATMENT NOTE ASSESSMENT: Rosario Wyatt tolerated the session with fatigue, expected muscle soreness, and no issues. She demonstrated improvements in pain, posture, exercise tolerance and gait. The patient will continue to benefit from ongoing skilled physical therapy to progress toward set goals. PLAN FOR NEXT VISIT: Continue with postural stretching and strengthening with extension directional preference. Continue postural correction. Progress therex in the department and HEP to tolerance. SUBJECTIVE: Patient Reason for Visit: Pt reports that overall she is pleasantly surprised by how much the HEP has helped. She reports compliance with HEP 2-3x day and that not only has HEP helped to decrease her symptoms, but it also allows her to manage flare ups by eliminating pain. She reports and demonstrates increased postural awareness and alignment. She reports that she is walking better and completing work tasks better. She reports that symptoms are now intermittent instead of constant. Pain: Pain Pain Level: 4 Pain Location: Low Back/Lumbar Spine - Right Description: Stiffness Frequency: Intermittent Post Treatment Pain Post Treatment Pain Level: No Change Post Treatment Symptoms: During and after session pt reported considerable fatigue but no increase in pain. Overall she is feeling much better and this pleases her. OBJECTIVE MEASURES WITH LEVEL OF FUNCTION: TREATMENT: Therapeutic Exercise: 1: prone lying x3 minutes 2: prone on elbows x3 minutes 3: prone press ups x10 and 1x10 with exhale at end range 4: *prone B alt hip ext SLR 2x10 5: *modified kneeling plank 3x30 seconds 6: *bridging 2x10 7: crunches in small range 2x10 8: back extension machine 50# 3x10 9: stirring the pot at Hoist 1 plate x10 CW and x10 CCW facing both lateral directions. 10: seated facing Hoist, pull downs with yamilet overhead elbows held in extension 1 plate plus 4 round 3x10 Skilled Intervention: Patient was educated in proper exercise technique and purpose for exercises. Reviewed and educated patient on additions/changes for home exercise program as above (*). Skilled judgment was provided in selection of appropriate interventions. Provided written instruction for home exercise program to facilitate proper performance and compliance. Correct performance of therapeutic exercises was facilitated with verbal, visual, and tactile cuing. Patient education as noted. Billing Therapeutic Exercise Treatment Minutes: 45 Total Treatment Time Minutes (timed/untimed): 45 Ton Conde PT documented in this encounter [facility] 11-07-2022 Miscellaneous Notes Apts booked. Roya Cordon LPN Pt called and reports she got a letter that she needed further testing done regarding her mammogram. Please put in orders and let pt know so she can make the apts. Pt requesting to stay in [place] because of transportation. Roya Cordon LPN documented in this encounter [facility] 11-01-2022 Note HNO ID: [id number] Author: Ton Conde PT Service: ? Author Type: Physical Therapist Type: Progress Notes Filed: 11/01/2022 3:17 PM Note Text: Episode Visit Count: 1 Therapist That Will Accept/Oversee The Plan Of Care: Ton Conde PT Start of Care Date: 11/01/22 Onset Date: 10/15/22 (first onset 2006 but this episode began 10/15/22) Plan of Care Certification Date: 11/01/22 Next Certification Due Date: 12/06/22 Patient Identified by Name and Date of : Yes REHABILITATION AND SPORTS THERAPY PHYSICAL THERAPY EVALUATION PLAN OF CARE: Assessment: Rosario Wyatt presents with chief complaint of B LB pain R LE radicular symptoms that interferes with bending, lifting, working, sleeping, sitting, cleaning, stair negotiation. She presents with impairments in ADL's, independence in exercise, overall function, posture, range of motion, strength, symptom management, and tissue tenderness. PROMIS? (Patient-Reported Outcomes Measurement Information System) scores were reviewed and physical function domain identified as a rehabilitation concern. Prognosis for therapy is Excellent due to: current objective clinical presentation, good overall health status, within-session changes. She will benefit from skilled therapy services to meet the goals established for this plan of care as noted below. Classification Low Back Pain Subgroup Classification: Core stabilization subgroup: recommended visits 10. Core Stabilization Subgroup Classification based on: pain with transitional movements (pain with prolonged positions and difficulty with bending and lifting.) Goals for Episode of Care: created on 11/01/22 through 12/06/22 Independent in home exercises. Patient will decrease pain to 0/10 at rest and with functional activities to allow patient to improve tolerance for return to prior functional level. Restore pain-free lumbar ROM to WFL to allow for improved bending at work Sleep through night without pain/symptoms. Sit without limitations, without pain/symptoms to allow for increased sitting tolerance. Patient will be able to tolerate bending, lifting, sitting, cleaning, stairs and sleeping without increased symptoms. Patient will increase strength of core/postural muscles to WFL to allow for increased position and activity tolerance.. Patient Goals: decrease pain and have a normal life. Planned Interventions, Frequency, and Duration: Current Frequency: 1x/week (Pt states that she can only attend 1x week) Duration: 5 weeks Total Number of Visits Planned: 5 Planned Treatment Interventions: Therapeutic exercise (49316), Neuromuscular re-education (98277), Manual therapy (85538), Therapeutic activities (54387), Self-penitentiary management (54564), Patient/Family/Caregiver Education, Body Mechanics Training, General Conditioning, Functional training PLAN FOR NEXT VISIT: Review, correct and progress HEP to tolerance. Begin comprehensive training on postural correction and body mechanics as it relates to her work. Also continue with postural stretching and strengthening with extension directional preference. Manual therapy prn, especially manual belt traction. Patient demonstrates good understanding of plan of care and treatment. The above goals and plan of care were discussed and agreed upon by patient/family. SUBJECTIVE: Rosario Wyatt is a 46 year old female seen today for constant pain across both sides of low back, down into R buttock and posterior R thigh. She reports that when symptoms are severe after her shift at work, her pain extends down into R calf but the calf symptoms are not constant. She reports that she is also experiencing muscle spasms in B calves that is a new symptom. Lifting a heavy box of chicken wings at work was the mechanism of injury. She reports that this episodes is more severe than previous ones and that muscle spasms did not occur previously. Patient Goals: decrease pain and have a normal life. 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 Cancer Clinical Reasoning: No identified risk factors. Infection Clinical Reasoning: No identified risk factors. Cauda Equina Syndr (more content not included)... [facility] 10-27-2022 Miscellaneous Notes The following approved medication requests have been transmitted electronically. Requested Prescriptions Signed Prescriptions Disp Refills traZODone (DESYREL) 50 mg tablet 30 tablet 0 Sig: Take 1 tablet by mouth every evening. Authorizing Provider: EDWARD BRAGG MA If PCP office would please phone in script, as instructed by Dr. Bragg below. Thank you. Patient has been notified of new order. Fariba Jack RN Patient notified. Fariba Jack RN Patient's request for medication is as follows Requested Prescriptions Signed Prescriptions Disp Refills traZODone (DESYREL) 50 mg tablet 30 tablet 0 Sig: Take 1 tablet by mouth every evening. Authorizing Provider: EDWARD BRAGG Order entered - please phone pharmacy and notify patient. Edward Bragg MD Patient calling and reports she has been having difficulty sleeping. Reports she stopped drinking alcohol earlier this year and is not sleeping well. Asking if PCP can prescribe medication to help her sleep. Uses [facility]. Last OV: 10/19/22-with Dr. Cason for Est Care and low back pain. Please call patient with update. [phone] Thank you. documented in this encounter [facility] 10-26-2022 Miscellaneous Notes October 26, 2022 PID: [id number] Rosario Wyatt [address] [place] [address] Dear Ms. Wyatt, Your recent breast imaging exam on 10/25/2022 showed a possible finding that requires additional imaging studies for a complete evaluation. Most such findings are probably benign (not cancer). If you have a healthcare provider who ordered/prescribed your screening mammogram: Please call [phone] or EXT: [phone] to schedule an appointment for your additional imaging (if you have not already done so). If you DO NOT have a healthcare provider (ie you did not have an order/prescription for your screening mammogram): Please call to schedule an appointment for your additional imaging (if you have not already done so). You must have an order/prescription from your physician when calling to schedule your appointment. If your order/prescription is not electronic, you must bring the hard copy with you on the day of your exam to avoid delays. Your imaging studies and reports are kept on file at [facility] as part of your permanent medical record, and are available for your continuing care. Thank you for allowing us to help in meeting your health care needs. Sincerely, Dr. Sandoval Interpreting Radiologist [facility] (Additional imaging) documented in this encounter [facility] 10-25-2022 Note HNO ID: [id number] Author: RT Katie(Jose) Service: ? Author Type: Technologist Type: Progress Notes Filed: 10/25/2022 2:48 PM Note Text: Radiology Service Progress Note PATIENT NAME: Rosario Wyatt DATE OF SERVICE: October 25, 2022 TIME: 2:47 PM PATIENT IDENTITY VERIFICATION COMPLETED USING TWO (2) IDENTIFIERS: Name and Date of confirmed by patient verbally. FALL SCREENING: Has the patient had 2 falls in the last year or 1 fall with injury or currently using an Ambulatory Assistive Device (Walker, Cane, Wheelchair, Crutches, etc.)? No PATIENT GENDER DATA: Female. status: : No status: NO. PATIENT RELEVANT IMPLANT DATA REVIEWED: Not Applicable RADIOLOGY DEPARTMENT: Mammography PERIPHERAL IV DATA: Not applicable SIGNED BY: RT Katie(R) October 25, 2022 2:47 PM [facility] 10-25-2022 History of Presen t illness Narrative Radiology Service Progress Note PATIENT NAME: Rosario Wyatt DATE OF SERVICE: October 25, 2022 TIME: 2:47 PM PATIENT IDENTITY VERIFICATION COMPLETED USING TWO (2) IDENTIFIERS: Name and Date of confirmed by patient verbally. FALL SCREENING: Has the patient had 2 falls in the last year or 1 fall with injury or currently using an Ambulatory Assistive Device (Walker, Cane, Wheelchair, Crutches, etc.)? No PATIENT GENDER DATA: Female. status: : No status: NO. PATIENT RELEVANT IMPLANT DATA REVIEWED: Not Applicable RADIOLOGY DEPARTMENT: Mammography PERIPHERAL IV DATA: Not applicable SIGNED BY: RT Katie(Jose) October 25, 2022 2:47 PM documented in this encounter [facility] 10-19-2022 Note HNO ID: [id number] Author: RT Julieth(R) Service: Radiology Author Type: Technologist Type: Progress Notes Filed: 10/19/2022 5:48 PM Note Text: Radiology Service Progress Note PATIENT NAME: Rosario Wyatt DATE OF SERVICE: October 19, 2022 TIME: 5:38 PM PATIENT IDENTITY VERIFICATION COMPLETED USING TWO (2) IDENTIFIERS: Name and Date of confirmed by patient verbally. FALL SCREENING: Has the patient had 2 falls in the last year or 1 fall with injury or currently using an Ambulatory Assistive Device (Walker, Cane, Wheelchair, Crutches, etc.)? No PATIENT GENDER DATA: Female. status: : No status: NO. PATIENT RELEVANT IMPLANT DATA REVIEWED: Yes RADIOLOGY DEPARTMENT: General X-ray: Exam(s) Completed: Spine X-Ray(s): Lumbar AP / LAT / L5-S1 PERIPHERAL IV DATA: Not applicable SIGNED BY: RT Julieth(R) October 19, 2022 5:38 PM [facility] 10-19-2022 Note HNO ID: [id number] Author: Edward Bragg MD Service: ? Author Type: Physician Type: Progress Notes Filed: 10/20/2022 4:30 PM Note Text: This note was created using [employer]. Subjective Patient presents with: Establish Care Patient reports low back pain with acute onset since while carrying a heavy object a 30-40 pound case of chicken at work 10/15. The pain is located in lower back and sacroiliac region bilaterally with radiation to to the right thigh and described as aching and shooting. Pain is worse with sitting, walking, lying down, and changing positions and better with heating pad and sitting in a recliner. Associated symptoms include vibration of her pubic bone. She was seen at urgent care and was starting to have some relief from the prednisone bolus and muscle relaxant. She's had issues with chronic neck and back pain, and admitted at various points of self medicating for chronic pain with alcohol. She stopped alcohol use earlier this year due to gastrointestinal side effects. Review of Systems Constitutional: Negative for appetite change, fever and unexpected weight change. Gastrointestinal: Negative for abdominal pain, constipation, diarrhea, nausea and vomiting. Genitourinary: Negative for difficulty urinating, dysuria and hematuria. Musculoskeletal: Positive for back pain and gait problem. Skin: Negative for rash. Neurological: Positive for numbness. PAST MEDICAL HISTORY Diagnosis Date Arthritis 12/31/2015 history of DJD neck, back Cervical disc disorder with radiculopathy 09/26/2009 Right shoulder Chronic diarrhea 06/23/2016 Herniated lumbar intervertebral disc 10/11/2006 History of neck injury 05/13/2014 Nipple discharge Pneumonia 08/30/2015 Uterine fibroid 10/23/2007 PAST SURGICAL HISTORY Procedure Laterality Date EXCISION PILONIDAL CYST/SINUS SIMPLE 1998 HYSTERECTOMY HX AZ-BSO benign PAST SURGICAL HISTORY OF Right 10/2016 breast abscess S BALLOON,UTERINE ABLATION [id number] TUBAL LIGATION HX 1995 FAMILY HISTORY Problem Relation Age of Onset Arthritis Mother COPD Mother Heart Mother Alcohol/Drug Mother Hypertension Mother other (Other) Mother uterine cancer None Father not known other (heart disease) Paternal Grandfather Diabetes Maternal Grandmother Breast Cancer Paternal Grandmother Social History Tobacco Use Smoking status: Every Day Packs/day: 1.00 Years: 28.00 Pack years: 28.00 Types: Cigarettes Start date: 07/17/1987 Smokeless tobacco: Never Substance Use Topics Alcohol use: Not Currently Alcohol/week: 8.0 standard drinks Types: 8 Cans of Beer (12oz) per week Drug use: No ALLERGIES No Known Allergies Current Outpatient Medications Medication Sig methocarbamol (ROBAXIN) 500 mg tablet Take 1 tablet by mouth every 6 hours as needed (Pain) for up to 3 days. Ibuprofen 100 mg tablet Take 100 mg by mouth every 6 hours as needed. multivitamin tablet Take 1 tablet by mouth once daily. No current facility-administered medications for this visit. Objective BP 120/74 (BP Site: Right Arm, BP Position: Sitting, BP Cuff Size: Large Adult) Pulse 80 Resp 16 Ht 166.6 cm (5' 5.6 ) Wt 66.2 kg (146 lb) BMI 23.85 kg/m? Physical Exam Constitutional: Appearance: Normal appearance. HENT: Head: Normocephalic. Eyes: General: No scleral icterus. Conjunctiva/sclera: Conjunctivae normal. Cardiovascular: Rate and Rhythm: Normal rate and regular rhythm. Heart sounds: No murmur heard. No gallop. Pulmonary: Breath sounds: Normal breath sounds. Abdominal: Palpations: Abdomen is soft. Tenderness: There is no abdominal tenderness. Musculoskeletal: Cervical back: Neck supple. Thoracic back: No spasms or tenderness. Lumbar back: No deformity. Positive right straight leg raise test. Negative left straight leg raise test. Lymphadenopathy: Cervical: No cervical adenopathy. Neurological: General: No focal deficit present. Mental Status: She is alert and oriented to person, place, and time. Sensory: Sensory deficit present. Motor: No weakness, tremor or abnormal muscle tone. Gait: Gait abnormal. Deep Tendon Reflexes: Babinski sign absent on the right side. Babinski sign absent on the left side. Reflex Scores: Patellar reflexes are 1+ on the right side and 2+ on the left side. Achilles reflexes are 1+ on the right side and 2+ on the left side. Comments: Dysesthesia of the right anterior thigh. Assessment and Plan 1. Acute bilateral low back pain with right-sided sciatica - ICD9: 724.2, 724.3, 338.19, ICD10: M54.41 (primary diagnosis) Symptoms consistent with herniated disc - Bedrest for 2-3 days - Prednisone burst- see orders - Muscle relaxant- see orders - PT consult - Xrays- see orders - Patient given instructions use of medications as ordered - XR LUMBAR GENERAL 3V AP/LAT/L5-S1 - CBC - COMP METABOLIC PANEL - CONSULT TO PHYSI (more content not included)... [facility] 10-18-2022 Note HNO ID: [id number] Author: RAHEEM Johnson Service: ? Author Type: Physician Victims Advocate Clerk/Specialist Type: Progress Notes Filed: 10/18/2022 7:35 AM Note Text: This note was created using NoteWriter. Subjective Rosario Wyatt is a 46 year old female. HPI 46-year-old female presents for lumbar pain. Patient states she has been having lumbar pain for about 3 days after lifting a box. She states that she was told in the past that she had a herniated disc. She got epidural shots for it. She states this was many many years ago. She occasionally gets some intermittent pains and issues with her lumbar spine. She denies ever having surgery in the lumbar spine. She has not followed up for it for several years. Patient states that after lifting a box a few days ago, she got pain in the right lower lumbar spine and some pain radiating down her light leg. No bowel/bladder incontinence. No saddle anesthesia. No numbness. Still able to ambulate. She is taking Advil and Tylenol with minimal improvement. PAST MEDICAL HISTORY Diagnosis Date Arthritis 12/31/2015 history of DJD neck, back Nipple discharge Pneumonia 08/30/2015 Uterine fibroid 10/23/2007 PAST SURGICAL HISTORY Procedure Laterality Date EXCISION PILONIDAL CYST/SINUS SIMPLE 1997 HYSTERECTOMY HX AZ-BSO benign PAST SURGICAL HISTORY OF Right 10/2016 breast abscess S BALLOON,UTERINE ABLATION 2007 TUBAL LIGATION HX 1995 ALLERGIES Patient has no known allergies. MEDICATIONS TRISTIAN'S WORT ORAL Take by mouth. Ibuprofen 100 mg tablet Take 100 mg by mouth every 6 hours as needed. multivitamin tablet Take 1 tablet by mouth once daily. methylPREDNISolone (MEDROL, ANGELA,) 4 mg Dose-Pack Follow dosing instructions, take with food. methocarbamol (ROBAXIN) 500 mg tablet Take 1 tablet by mouth every 6 hours as needed (Pain) for up to 3 days. amoxicillin/potassium clav (AUGMENTIN ORAL) Take 875 mg by mouth. (Patient not taking: Reported on 10/18/2022) cetirizine (ZYRTEC) 5 mg tablet Take 5 mg by mouth once daily. benzonatate (TESSALON PERLE) 100 mg capsule Take 1 capsule by mouth three times daily as needed for Cough. (Patient not taking: Reported on 10/18/2022) FAMILY HISTORY Problem Relation Age of Onset Arthritis Mother COPD Mother Heart Mother Alcohol/Drug Mother Hypertension Mother other (Other) Mother uterine cancer None Father not known other (heart disease) Paternal Grandfather Diabetes Maternal Grandmother Breast Cancer Paternal Grandmother Social History Tobacco Use Smoking status: Every Day Packs/day: 1.00 Years: 28.00 Pack years: 28.00 Types: Cigarettes Start date: 07/17/1987 Smokeless tobacco: Never Substance Use Topics Alcohol use: Yes Alcohol/week: 35.0 standard drinks Types: 14 Cans of Beer (12oz) per week Comment: before bed Drug use: No Review of Systems Constitutional: Negative for chills and fever. HENT: Negative for congestion, ear pain and sore throat. Respiratory: Negative for cough and shortness of breath. Cardiovascular: Negative for chest pain. Gastrointestinal: Negative for diarrhea and vomiting. Musculoskeletal: Positive for arthralgias (R leg pain) and back pain. Objective BP 122/78 Pulse 83 Temp 36.4 ?C (97.5 ?F) (Tympanic) Resp 16 Wt 68.1 kg (150 lb 3.2 oz) SpO2 99% BMI 24.24 kg/m? Physical Exam Vitals and nursing note reviewed. Constitutional: General: She is not in acute distress. Appearance: Normal appearance. She is not toxic-appearing. Cardiovascular: Rate and Rhythm: Normal rate and regular rhythm. Pulmonary: Effort: Pulmonary effort is normal. Breath sounds: Normal breath sounds. Musculoskeletal: Lumbar back: Tenderness present. No bony tenderness. Decreased range of motion. Positive right straight leg raise test. Negative left straight leg raise test. Comments: Right-sided lumbar paraspinal muscle tenderness. Positive seated straight leg raise on the right. Negative on the left. Normal sensation lower extremities. No ankle clonus. Able to ambulate. Neurological: Mental Status: She is alert. Assessment and Plan ASSESSMENT/PLAN: 1. Acute midline low back pain with right-sided sciatica - ICD9: 724.2, 724.3, ICD10: M54.41 -No fall. Low suspicion for fracture. No signs of cauda equina. - Medrol dose pack - Muscle relaxant- see orders. Advise no driving or operating machinery while taking this as it may cause drowsiness. -No NSAIDs while taking the Medrol Dosepak. Advise she may take Tylenol. -Follow-up with PCP to discuss physical therapy and possible referral to spine or pain mgmt if needed. Diagnosis and treatment plan were discussed and questions were answered to the patient's satisfaction. Pt acknowledged understanding of concepts and follow up plan. Specific signs and symptoms that would indicate the need for higher level of care were discussed in detail warranting prompt ER evaluation. Kr (more content not included)... [facility] 10-18-2022 History of Presen t illness Narrative This note was created using NoteWriter. Subjective Rosario Wyatt is a 46 year old female. HPI 46-year-old female presents for lumbar pain. Patient states she has been having lumbar pain for about 3 days after lifting a box. She states that she was told in the past that she had a herniated disc. She got epidural shots for it. She states this was many many years ago. She occasionally gets some intermittent pains and issues with her lumbar spine. She denies ever having surgery in the lumbar spine. She has not followed up for it for several years. Patient states that after lifting a box a few days ago, she got pain in the right lower lumbar spine and some pain radiating down her light leg. No bowel/bladder incontinence. No saddle anesthesia. No numbness. Still able to ambulate. She is taking Advil and Tylenol with minimal improvement. PAST MEDICAL HISTORY Diagnosis Date Arthritis 12/31/2015 history of DJD neck, back Nipple discharge Pneumonia 08/30/2015 Uterine fibroid 10/23/2007 PAST SURGICAL HISTORY Procedure Laterality Date EXCISION PILONIDAL CYST/SINUS SIMPLE 1997 HYSTERECTOMY HX AZ-BSO benign PAST SURGICAL HISTORY OF Right 10/2016 breast abscess S BALLOON,UTERINE ABLATION [id number] 2007 TUBAL LIGATION HX 1995 ALLERGIES Patient has no known allergies. MEDICATIONS TRISTIAN'S WORT ORAL Take by mouth. Ibuprofen 100 mg tablet Take 100 mg by mouth every 6 hours as needed. multivitamin tablet Take 1 tablet by mouth once daily. methylPREDNISolone (MEDROL, ANGELA,) 4 mg Dose-Pack Follow dosing instructions, take with food. methocarbamol (ROBAXIN) 500 mg tablet Take 1 tablet by mouth every 6 hours as needed (Pain) for up to 3 days. amoxicillin/potassium clav (AUGMENTIN ORAL) Take 875 mg by mouth. (Patient not taking: Reported on 10/18/2022) cetirizine (ZYRTEC) 5 mg tablet Take 5 mg by mouth once daily. benzonatate (TESSALON PERLE) 100 mg capsule Take 1 capsule by mouth three times daily as needed for Cough. (Patient not taking: Reported on 10/18/2022) FAMILY HISTORY Problem Relation Age of Onset Arthritis Mother COPD Mother Heart Mother Alcohol/Drug Mother Hypertension Mother other (Other) Mother uterine cancer None Father not known other (heart disease) Paternal Grandfather Diabetes Maternal Grandmother Breast Cancer Paternal Grandmother Social History Tobacco Use Smoking status: Every Day Packs/day: 1.00 Years: 28.00 Pack years: 28.00 Types: Cigarettes Start date: 07/17/1987 Smokeless tobacco: Never Substance Use Topics Alcohol use: Yes Alcohol/week: 35.0 standard drinks Types: 14 Cans of Beer (12oz) per week Comment: before bed Drug use: No Review of Systems Constitutional: Negative for chills and fever. HENT: Negative for congestion, ear pain and sore throat. Respiratory: Negative for cough and shortness of breath. Cardiovascular: Negative for chest pain. Gastrointestinal: Negative for diarrhea and vomiting. Musculoskeletal: Positive for arthralgias (R leg pain) and back pain. Objective BP 122/78 Pulse 83 Temp 36.4 C (97.5 F) (Tympanic) Resp 16 Wt 68.1 kg (150 lb 3.2 oz) SpO2 99% BMI 24.24 kg/m Physical Exam Vitals and nursing note reviewed. Constitutional: General: She is not in acute distress. Appearance: Normal appearance. She is not toxic-appearing. Cardiovascular: Rate and Rhythm: Normal rate and regular rhythm. Pulmonary: Effort: Pulmonary effort is normal. Breath sounds: Normal breath sounds. Musculoskeletal: Lumbar back: Tenderness present. No bony tenderness. Decreased range of motion. Positive right straight leg raise test. Negative left straight leg raise test. Comments: Right-sided lumbar paraspinal muscle tenderness. Positive seated straight leg raise on the right. Negative on the left. Normal sensation lower extremities. No ankle clonus. Able to ambulate. Neurological: Mental Status: She is alert. Assessment and Plan ASSESSMENT/PLAN: 1. Acute midline low back pain with right-sided sciatica - ICD9: 724.2, 724.3, ICD10: M54.41 -No fall. Low suspicion for fracture. No signs of cauda equina. - Medrol dose pack - Muscle relaxant- see orders. Advise no driving or operating machinery while taking this as it may cause drowsiness. -No NSAIDs while taking the Medrol Dosepak. Advise she may take Tylenol. -Follow-up with PCP to discuss physical therapy and possible referral to spine or pain mgmt if needed. Diagnosis and treatment plan were discussed and questions were answered to the patient's satisfaction. Pt acknowledged understanding of concepts and follow up plan. Specific signs and symptoms that would indicate the need for higher level of care were discussed in detail warranting prompt ER evaluation. RAHEEM Johnson documented in this encounter [facility] documented as of this encounter (statuses as of 10/28/2022) [facility]12-08-2016 History of Past illness Narrative* Problem Noted Date Resolved Date Chronic diarrhea 06/23/2016 10/19/2022 documented as of this encounter (statuses as of 10/28/2022) [facility]2016 History of Past illness Narrative* Problem Noted Date Resolved Date Chronic diarrhea 06/23/2016 10/19/2022 documented as of this encounter (statuses as of 11/07/2022) [address]08-2016 History of Past illness Narrative* Problem Noted Date Resolved Date Chronic diarrhea 06/23/2016 10/19/2022 documented as of this encounter (statuses as of 11/09/2022) [facility] History of Past illness Narrative* Problem Noted Date Resolved Date Chronic diarrhea 06/23/2016 10/19/2022 documented as of this encounter (statuses as of 11/15/2022) [facility]12-08-2016 History of Past illness Narrative* Problem Noted Date Diagnosed Date Resolved Date Chronic diarrhea 06/23/2016 10/19/2022 documented as of this encounter (statuses as of 05/21/2023) [facility]12-08-2016 History of Past illness Narrative* Problem Noted Date Diagnosed Date Resolved Date Chronic diarrhea 06/23/2016 10/19/2022 documented as of this encounter (statuses as of 05/21/2023) [facility]12-[facility] History of Past illness Narrative* Problem Noted Date Diagnosed Date Resolved Date Chronic diarrhea 06/23/2016 10/19/2022 documented as of this encounter (statuses as of 05/21/2023) [facility] Acute midline low back pain with right-sided sciatica- [facility] Diagnosis 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 [facility] Diagnosis Abnormal screening mammogram- Primary Abnormal mammogram, unspecified [facility] Diagnosis Acute back pain with sciatica, right- Primary [facility] Diagnosis Skin lesion of left leg- Primary Unspecified disorder of skin and subcutaneous tissue Acute back pain with sciatica, right Elevated liver enzymes Other nonspecific abnormal serum enzyme levels Special screening for malignant neoplasms, colon Encounter for immunization Need for other specified prophylactic vaccination against single bacterial disease [facility] Diagnosis Abnormal screening mammogram Abnormal mammogram, unspecified [facility] Diagnosis Screening mammogram for breast cancer documented in this encounter [facility] note* Diagnosis Abnormal screening mammogram Abnormal mammogram, unspecified documented in this encounter [facility] for referral (narrative)* Diagnostic Procedure Only (Routine) - Pending Review Specialty Diagnoses / Procedures Referred By Madeline hamlin Referred To Contact [facility] Diagnoses Abnormal screening mammogram Procedures US BREAST LTD LEFT US BREAST UNI REAL TIME WITH IMAGE LIMITED Kandice Mario APRN.CNP [address] [place] [address] [facility] [address] [id number] Referral ID Status Reason Start Date Expiration Date Visits Requested Visits Authorized [id number] Pending Review Auto-Generat ed Referral 10/31/2022 11/30/2023 1 1 * Diagnostic Procedure Only (Routine) - Pending Review Specialty Diagnoses / Procedures Referred By Madeline hamlin Referred To Contact [facility] Diagnoses Abnormal screening mammogram Procedures US BREAST LTD RIGHT US BREAST UNI REAL TIME WITH IMAGE LIMITED Kandice Mario APRN.CNP [address] [place] [address] [facility] [address] [place] [address] Referral ID Status Reason Start Date Expiration Date Visits Requested Visits Authorized [id number] Pending Review Auto-Generat ed Referral 10/31/2022 11/30/2023 1 1 * Diagnostic Procedure Only (Routine) - Pending Review Specialty Diagnoses / Procedures Referred By Madeline hamlin Referred To Contact [facility] Diagnoses Abnormal screening mammogram Procedures HERMILA DIAGNOSTIC BILATERAL DIAGNOSTIC MAMMOGRAPHY COMPUTER-AIDED DETCJ BI Kandice Mario APRN.CNP [address] [place] [address] [facility] [address] [place] [address] Referral ID Status Reason Start Date Expiration Date Visits Requested Visits Authorized [id number] Pending Review Auto-Generat ed Referral 10/31/2022 11/30/2023 1 1 [facility] for referral (narrative)* Outpatient Procedure (Routine) - Pending Review Specialty Diagnoses / Procedures Referred By Contac t Referred To Contact [facility] Diagnoses Special screening for malignant neoplasms, colon Procedures COLONOSCOPY SCREENING COLONOSCOPY FLX DX W/COLLJ SPEC WHEN PFRMD Kandice Mario APRN.MAIL CLERK [address] [place] [address] [facility] [address] [place] [address] Referral ID Status Reason Start Date Expiration Date Visits Requested Visits Authorized [id number] Pending Review Auto-Generat ed Referral 11/15/2022 11/16/2023 1 1 * Consult, Test, Treat (Routine) - Pending Review Specialty Diagnoses / Procedures Referred By Contac t Referred To Contact Dermatology Diagnoses Skin lesion of left leg Procedures CONSULT TO DERMATOLOGY OFFICE/OUTPATIENT NEW HIGH MDM 60-74 MINUTES Kandice Mario APRN.CNP [address] [place] [address] Referral ID Status Reason Start Date Expiration Date Visits Requested Visits Authorized [id number] Pending Review PCP Requested Referral 11/15/2022 11/15/2023 1 1 [facility] for referral (narrative)* Diagnostic Procedure Only (Routine) - Pending Review Specialty Diagnoses / Procedures Referred By Contac t Referred To Contact [facility] Diagnoses Abnormal screening mammogram Procedures US BREAST LTD LEFT US BREAST UNI REAL TIME WITH IMAGE LIMITED Kandice Mario APRN.MAIL CLERK [address] [place] [address] [facility] [address] [place] [address] Referral ID Status Reason Start Date Expiration Date Visits Requested Visits Authorized [id number] Pending Review Auto-Generat ed Referral 10/31/2022 11/30/2023 1 1 * Diagnostic Procedure Only (Routine) - Pending Review Specialty Diagnoses / Procedures Referred By Contac t Referred To Contact [facility] Diagnoses Abnormal screening mammogram Procedures US BREAST LTD RIGHT US BREAST UNI REAL TIME WITH IMAGE LIMITED Kandice Mario APRN.CNP [address] [place] [address] [facility] [address] [place] [address] Referral ID Status Reason Start Date Expiration Date Visits Requested Visits Authorized [id number] Pending Review Auto-Generat ed Referral 10/31/2022 11/30/2023 1 1 [facility] for referral (narrative)* Diagnostic Procedure Only (Routine) - Pending Review Specialty Diagnoses / Procedures Referred By Madeline hamlin Referred To Contact [facility] Diagnoses Screening mammogram for breast cancer Procedures HERMILA SCREENING SCREENING MAMMOGRAPHY BI 2-VIEW BREAST INC Edward Chaves MD [facility] [place] [address] [facility] [address] [place] [address] Referral ID Status Reason Start Date Expiration Date Visits Requested Visits Authorized [id number] Pending Review Auto-Generat ed Referral 10/19/2022 11/18/2023 1 1 [facility] for visit Narrative* Diagnostic Procedure Only (Routine) - Pending Review Specialty Diagnoses / Procedures Referred By Madeline t Referred To Contact [facility] Diagnoses Screening mammogram for breast cancer Procedures HERMILA SCREENING SCREENING MAMMOGRAPHY BI 2-VIEW BREAST INC Edward Chaves MD [address] [place] [address] [facility] [address] [place] [address] Referral ID Status Reason Start Date Expiration Date Visits Requested Visits Authorized [id number] Pending Review Auto-Generat ed Referral 10/19/2022 11/18/2023 1 1 [facility] Diagnostic Procedure Only (Routine) - Closed Specialty Diagnoses / Procedures Referred By Contac t Referred To Contact [facility] Diagnoses Abnormal screening mammogram Procedures HERMILA DIAGNOSTIC BILATERAL DIAGNOSTIC MAMMOGRAPHY COMPUTER-AIDED DETCJ BI Older, Kandice, DISINTEGRATOR OPERATOR.MAIL CLERK [address] [place] [address] [facility] [address] [place] [address] Referral ID Status Reason Start Date Expiration Date V isits Requested Visits Authorized [id number] Closed Auto-Generate d Referral 10/31/2022 11/30/2023 1 1 [facility] Summary Purpose Family History No Family History Records FoundNo Family History Records Found Advance Directives No Advanced Directives Records FoundNo Advanced Directives Records Found Additional Source Comments INFORMATION SOURCE (unrecogn ized section and content) DATE CREATED AUTHOR AUTHOR'S ORGANIZ ATION 06/09/2023 [facility] Source Comments (unrecognize d section and content) In the event this informatio n is protected by the Federal Confidentiality of Alcohol and Drug Abuse Patient Records regulations: The Federal rules restrict any use of the information to criminally investigate or prosecute any alcohol or drug abuse patient.[facility] the event this information is protected by the Federal Confidentiality of Alcohol and Drug Abuse Patient Records regulations: The Federal rules restrict any use of the information to criminally investigate or prosecute any alcohol or drug abuse patient.[facility] the event this information is protected by the Federal Confidentiality of Alcohol and Drug Abuse Patient Records regulations: The Federal rules restrict any use of the information to criminally investigate or prosecute any alcohol or drug abuse patient.[facility] the event this information is protected by the Federal Confidentiality of Alcohol and Drug Abuse Patient Records regulations: The Federal rules restrict any use of the information to criminally investigate or prosecute any alcohol or drug abuse patient.[facility] the event this information is protected by the Federal Confidentiality of Alcohol and Drug Abuse Patient Records regulations: The Federal rules restrict any use of the information to criminally investigate or prosecute any alcohol or drug abuse patient.[facility] the event this information is protected by the Federal Confidentiality of Alcohol and Drug Abuse Patient Records regulations: The Federal rules restrict any use of the information to criminally investigate or prosecute any alcohol or drug abuse patient.[facility] the event this information is protected by the Federal Confidentiality of Alcohol and Drug Abuse Patient Records regulations: The Federal rules restrict any use of the information to criminally investigate or prosecute any alcohol or drug abuse patient.[facility] the event this information is protected by the Federal Confidentiality of Alcohol and Drug Abuse Patient Records regulations: The Federal rules restrict any use of the information to criminally investigate or prosecute any alcohol or drug abuse patient.[facility] the event this information is protected by the Federal Confidentiality of Alcohol and Drug Abuse Patient Records regulations: The Federal rules restrict any use of the information to criminally investigate or prosecute any alcohol or drug abuse patient.[facility] Reason for Visit (unrecogniz ed section and content) Reason Comments Medication Request Reason Comments mammogram orders/US Reason Comments Physical Therapy Specialty Diagnoses / Procedures Referred By Juanac t Referred To Contact [facility] Diagnoses BACK PAIN Procedures NEW PATIENT Self [address] [place] [address] [place] [address] Referral ID Status Reason Start Date Expiration Date Visits Requested Visits Authorized [id number] Authorized Patient Cleared - Qualified [id number] 10/17/2022 01/15/2023 99 99 Reason Comments 4 week follow up - back pain, lab result s Specialty Diagnoses / Procedures Referred By Contac t Referred To Contact [facility] Diagnoses BACK PAIN Procedures NEW PATIENT Self [address] [place] [address] [place] [address] Reason Comments Radiology [place] Specialty Diagnoses / Procedures Referred By Contac t Referred To Contact [facility] Diagnoses Abnormal screening mammogram Procedures US BREAST LTD LEFT US BREAST UNI REAL TIME WITH IMAGE LIMITED Fabiano, Kandice, DISINTEGRATOR OPERATOR.MAIL CLERK [address] [place] [address] [facility] [address] [place] [address] Referral ID Status Reason Start Date Expiration Date Visits Requested Visits Authorized [id number] Pending Review Auto-Generat ed Referral 10/31/2022 11/30/2023 1 1 Care Teams (unrecognized sec tion and content) Biblical Languages Professor Relationship Specialty Start Date End Date Edward Bragg MD [address] [place] [address] PCP - General Internal Medicine 10/19/22 Biblical Languages Professor Relationship Specialty Start Date End Date Edward Bragg MD [address] [place] [address] PCP - General Internal Medicine 10/19/22 Biblical Languages Professor Relationship Specialty Start Date End Date Edward Bragg MD [address] [place] [address] PCP - General Internal Medicine 10/19/22 Biblical Languages Professor Relationship Specialty Start Date End Date Edward Bragg MD [facility] [place] [address] PCP - General Internal Medicine 10/19/22 Biblical Languages Professor Relationship Specialty Start Date End Date Edward Bragg MD [address] [place] [address] PCP - General Internal Medicine 10/19/22 Biblical Languages Professor Relationship Specialty Start Date End Date Edward Bragg MD [address] [place], [place] [id number] PCP - General Internal Medicine 10/19/22 Biblical Languages Professor Relationship Specialty Start Date End Date Edward Bragg MD [address] [place], [place] [id number] PCP - General Internal Medicine 10/19/22 FOR RECORDS PERTAINING TO PATIENTS WHO ARE OR HAVE BEEN ENROLLED IN A CHEMICAL DEPENDENCY/SUBSTANCEABUSE PROGRAM, SOME INFORMATION MAY BE OMITTED. This clinical summary was aggregated from multiple sources. Caution should be exercised in using it in the provision of clinical care. This summary normalizes information from multiple sources, and as a consequence, information in this document may materially change the coding, format and clinical context of patient data. In addition, data may be omitted in some cases. CLINICAL DECISIONS SHOULD BE BASED ON THE PRIMARY CLINICAL RECORDS. [employer] [facility]. provides no warranty or guarantee of the accuracy or completeness of information in this document.
== END | disposition home or self-care (01) ==
LOC: OPUS 09:11
PROVIDERS: PCP Family Medicine; Referring Provider Family Medicine; Visit Provider Family Medicine
DX: R92.8 Other abnormal and inconclusive findings on diagnostic imaging of breast (principal); N60.09 Solitary cyst of unspecified breast
CPT/HCPCS: 76642; 77061; 77065; G0279

== ENCOUNTER → 2023-09-20 | Outpatient (CLI) | payer OTHER, SELFPAY ==
--- NOTE | 2023-09-20 15:01 | NEURO ---
NCS and/or EMG Patient Report Ordering Doctor: Joann Live DATE OF SERVICE: 09/20/23 Angela presents for electrodiagnostic testing of the upper limbs. She reports neck pain radiating into the scapula bilaterally.. She reports numbness and tingling in both hands. Electrodiagnostic findings: Median motor nerve demonstrates normal distal latency and amplitude with normal conduction velocity bilaterally. Normal ulnar motor response bilaterally, including conduction across the elbow. Normal median and ulnar F?waves. Sensory responses are within normal limits. Needle EMG testing was performed in the upper limbs. All muscles tested showed no evidence of denervation with normal motor unit action potentials. Electrodiagnostic impression: This is a normal electrodiagnostic study in the upper limbs. There is no electrodiagnostic evidence for peripheral neuropathy, including carpal tunnel syndrome. There is no electrodiagnostic evidence for cervical radiculopathy. Multi Select Codes Neurology Neurology Interp Codes: 89334-49 Musc test done w/n test comp (interp) (2) and 88688-34 Nrv cndj test 13/> studies (interp)
--- OUTSIDE RECORDS SUMMARY | 2023-09-20 17:33 | XMS RPT_ITS | CCD ---
Author Name Unknown Address [id number] [place] [address] Organization [facility] Care Team Providers Care Senior Software Manager Name Role Phone Virginie Arriaga LPN Unavailable Unavailable Virginie Arriaga LPN Unavailable Unavailable Unavailable Primary Care Provider [...] MAHSA, EDWARD Schumacher Primary Care Unavailable OLDER, KADNICE Attending Unavailable MAHSA, EDWARD Schumacher Primary Care Unavailable BRAGG, EDWARD [...] 09:06-0400 Body weight 67.13 kg Kandice Older RN BABY.MANAGER MARKET DEVELOPMENT Work Phone: [facility] 11-15-2022 09:06-0400 Diastolic blood pressure 76 mm[Hg] Kandice Older RN BABY.MANAGER MARKET DEVELOPMENT Work Phone: [facility] 11-15-2022 09:06-0400 Heart rate 86 /min Kandice Older RN BABY.MANAGER MARKET DEVELOPMENT Work Phone: [facility] 11-15-2022 09:06-0400 Respiratory rate 14 /min Kandice Older RN BABY.MANAGER MARKET DEVELOPMENT Work Phone: [facility] 11-15-2022 09:06-0400 Systolic blood pressure 112 mm[Hg] Kandice Older RN BABY.MANAGER MARKET DEVELOPMENT Work Phone: [facility] 10-18-2022 07:19-0400 Body temperature 97.5 [degF] Krislyn Aberegg PA Work Phone: [facility] 10-18-2022 07:19-0400 Body weight 68.13 kg Krislyn Aberegg PA Work Phone: [facility] 10-18-2022 07:19-0400 Diastolic blood pressure 78 mm[Hg] Krislyn Aberegg PA Work Phone: [facility] 10-18-2022 07:19-0400 Heart rate 83 /min Krislyn Aberegg PA Work Phone: [facility] 10-18-2022 07:19-0400 Respiratory rate 16 /min Krislyn Aberegg PA Work Phone: [facility] 10-18-2022 07:19-0400 SaO2% (BldA) [Mass fraction] 99 % Kan MACIEL Work Phone: [facility] 10-18-2022 07:19-0400 Systolic blood pressure 122 mm[Hg] Kan Guy PA Work Phone: [facility] 01-20-2017 09:01-0400 BMI (Body Mass Index) 23.5 kg/m2 Virginiecarmela Arriaga [facility] Work Phone: 01-20-2017 09:01-0400 Body Temperature 98.6 [degF] Virginie Arriaga [facility] Work Phone: 01-20-2017 09:01-0400 BP Diastolic 80 mm[Hg] Virginie Arriaga [facility] Work Phone: 01-20-2017 09:01-0400 BP Systolic 140 mm[Hg] Virginiecarmela Arriaga [facility] Work Phone: 01-20-2017 09:01-0400 Height 167.64 cm Virginie Arriaga [facility] Work Phone: 01-20-2017 09:01-0400 Pulse (Heart Rate) 83 /min Virginie Arriaga [facility] Work Phone: 01-20-2017 09:01-0400 Respiratory Rate 16 /min Virginie Arriaga [facility] Work Phone: 01-20-2017 09:01-0400 Weight 66.04 kg Virginie Arriaga [facility] Work Phone: Encounters Encounter Date Encounter Type Care Provider Facility Start: 12-06-2022 End: 12-06-2022 ambulatory KANDICE OLDER Facility:[facility] Start: 12-06-2022 End: 12-06-2022 Subsequent hospital visit by physician [facility] Work Phone: Radiology Procedures Date Procedure Procedure Detail Performing Clinician Start: 12-06-2022 Us breast uni real t berenice with image limited Kandice Older RN BABY.MANAGER MARKET DEVELOPMENT Work Phone: Start: 12-06-2022 Digital breast tomosynthesis bilateral Kandice Older RN BABY.MANAGER MARKET DEVELOPMENT Work Phone: Start: 10-25-2022 Lipid 1996 panel - S maxine or Plasma Us 1 Work Phone: Start: 10-25-2022 End: 10-25-2022 Mammography Edward Velez Work Phone: Start: 07-31-2019 Mammography Kan MACIEL Work Phone: Plan of Treatment Date Care Activity Detail Author Start: 11-15-[address] [facility] Start: 10-26-2027 Lipid 1996 panel - S maxine or Plasma Lipid Screening [facility] Start: 10-26-2027 [address]CRE[address] [facility] Start: 10-25-2025 DIABETES SCREEN DIABETES SCREEN [facility] Start: 10-25-2025 Diabetes Screening Diabetes Screenin g [facility] Start: 12-07-2023 Mammography Mammogram Screening [facility] Start: 10-26-[address] [facility] Start: 10-20-2023 COVID-19 VACCINE (3 - Booster for Pfizer series) COVID-19 VACCINE (3 - Booster for Pfizer series) [facility] Immunizations Immunization Date Immunization Notes Care Provider Fa cili 11-15-2022 pneumococcal (PCV20) vaccine, 20 valent (PREVNAR 20) Kandice Older RN BABY.MANAGER MARKET DEVELOPMENT Work Phone: [facility] 11-15-2022 tetanus toxoid, redu juan diphtheria toxoid, and acellular pertussis vaccine, adsorbed Kandice Older RN BABY.MANAGER MARKET DEVELOPMENT Work Phone: [facility] 11-15-2022 pneumococcal Conjuga te, unspecified formulation Kandice Older RN BABY.MANAGER MARKET DEVELOPMENT Work Phone: [facility] Work Phone: 11-21-2020 COVID-19 original vaccine, age 12+ yr, monovalent (PFIZER-BIONTECH - PURPLE TOP) Kandice Older RN BABY.MANAGER MARKET DEVELOPMENT Work Phone: [facility] 10-31-2020 COVID-19 original vaccine, age 12+ yr, monovalent (PFIZER-VocabNTElton Digital - PURPLE TOP) Kandice Older RN BABY.MANAGER MARKET DEVELOPMENT Work Phone: [facility] 06-23-2016 influenza, injectabl e, quadrivalent, contains preservative Kan MACIEL Work Phone: [facility] 06-23-2016 influenza virus vacc ine, unspecified formulation Us 1 Work Phone: [facility] 12-31-2015 pneumococcal polysaccharide vaccine, 23 valent Kan MACIEL Work Phone: [facility] Social History Date Type Detail Facility Start: 07-17-1987 Tobacco smoking stat us ORIS Smokes tobacco daily [facility] Start: 07-17-1987 History of tobacco use Cigarette Smo ker [facility] Start: 10-18-2022 End: 11-28-2022 Cigarettes smoked current (pack per day) - Reported 1 [facility] Start: 10-18-2022 Tobacco use and exposure Smoke less tobacco non-user [facility] Start: 10-18-2022 Alcohol intake Current drinke r of alcohol (finding) [facility] Start: 10-18-2022 History SDOH Alcohol Frequency 5 [facility] Start: 10-18-2022 History SDOH Alcohol Std Drinks 2 [facility] Start: 10-18-2022 History SDOH Alcohol Binge 1 [facility] Start: 10-18-2022 History SDOH Physica l Activity DPW 7 [facility] Start: 10-18-2022 History SDOH Stress 3 [facility] Start: 01-27-2016 Alcohol Comment before bed [facility] Start: 1975 Sex Assigned At Not on file [facility] Start: 10-19-2022 End: 11-15-2022 Alcohol intake Ex-drinker (finding) [facility] Start: 10-18-2022 End: 11-28-2022 Social connection and isolation panel [facility] Do you belong to any clubs or organizations such as adventist groups, unions, fraternal or athletic groups, or school groups? No [facility] Are you now , , , , never or living with a partner? [facility] How often to you hav e a drink containing alcohol? 4 or more times a week [facility] How many standard dr inks containing alcohol do you have on a typical day? [address] [facility] How often do you hav e 6 or more drinks on 1 occasion? Never [facility] How hard is it for y ou to pay for the very basics like food, housing, medical care, and heating Somewhat hard [facility] Adult Depression Scr eening Assessment 0 [facility] Work Phone: Do you feel stress - tense, restless, nervous, or anxious, or unable to sleep at night because your mind is troubled all the time - these days [OSQ] To some extent [facility] (I/We) worried whebrian er (my/our) food would run out before (I/we) got money to buy more. Sometimes true [facility] The food that (I/we) bought just didn't last, and (I/we) didn't have money to get more. Never true [facility] Clinical Notes 06-23-2016 to 06-07-2023 Kelly Chavez, RDMS - 12/06/2022 8:30 AM Marisabel Villanueva Mammo Tech - 12/06/2022 8:00 AM EDTPatient Estrellita Mario APRN.MANAGER MARKET DEVELOPMENT - 11/15/2022 9:26 AM EDT Note Date & Type Note Facility 06-07-2023 Note HNO ID: [id number] Author: Janet Black Service: ? Author Type: ? Type: Progress Notes Filed: 06/07/2023 7:39 AM Note Text: 06-07 mailed colonoscopy letter. Janet Black [facility] 06-03-2023 Note HNO ID: [id number] Author: Janet Black Service: ? Author Type: ? Type: Progress Notes Filed: 06/03/2023 1:09 PM Note Text: 06-03. Failed attempt to schedule colonoscopy. LVM to return call. Janet Black [facility] 04-06-2023 Note HNO ID: [id number] Author: Janet Black Service: ? Author Type: ? Type: Progress Notes Filed: 04/06/2023 9:23 AM Note Text: 04-06 failed attempt to schedule colonoscopy. Left msg to return call. IS [facility] 12-26-2022 Note HNO ID: [id number] Author: Janet Black Service: ? Author Type: ? Type: Progress Notes Filed: 12/26/2022 11:41 AM Note Text: 12-26... contacted patient she will call when ready to schedule. She wanted the EggCartelytely Bowel Prep Instructions which I sent to her MyChart along with our phone number. Janet Black [facility] 12-06-2022 Note HNO ID: [id number] Author: Kelly Chavez RDMS Service: ? Author Type: Anglesmith Type: Progress Notes Filed: 12/06/2022 9:21 AM [...] RDMS RVT December 06, 2022 9:20 AM [facility] 12-06-2022 Note HNO ID: [id number] Author: Marisabel Drake, Ombu Service: ? Author Type: Magnetic Tape Typewriter Operator Type: Progress Notes Filed: 12/06/2022 8:09 AM [...] Larsono Eron December 06, 2022 7:51 AM [facility] 12-06-2022 History of Presen t illness Narrative [...] 2022 9:20 AM documented in this encounter [facility] 12-06-2022 History of Presen t illness Narrative [...] 2022 7:51 AM documented in this encounter [facility] 11-28-2022 Note HNO ID: [id number] Author: Ebony Bertrand APRN.ESPERANZA Service: ? Author Type: Nurse Practitioner Type: Progress Notes Filed: 12/05/2022 2:35 PM Note Text: Department of Dermatology Ebony Bertrand APRN.CNP 11/28/2022 Last visit in Dermatology: Visit date not found Objective/Assessment/Plan 1. Neoplasm of unspecified behavior of bone, soft tissue, and skin Left Thigh - Anterior [id number] erythematous dome shaped papule SKIN / NAIL [...] Bolanos LPN Intake completed by ROSARIO Cain APRN.MANAGER MARKET DEVELOPMENT [facility] 11-15-2022 Note HNO ID: [id number] Author: Kandice Mario APRN.MANAGER MARKET DEVELOPMENT Service: ? Author Type: Nurse Practitioner Type: [...] Right 10/2016 breast abscess S BALLOON,UTERINE ABLATION [id number] 2007 TUBAL LIGATION HX 1995 ALLERGIES Patient [...] agreeable to treatment plan. Kandice Mario APRN.CNP [facility] OPEN ACCESS QUESTIONNAIRE 1. Are [...] previously re: Diffic (more content not included)... [facility] 11-15-2022 Instructions Kandice Mario APRN.ESPERANZA - 11/15/2022 [...] until the day before your colonoscopy. Designated Care Taker on the Day of Your Exam A responsible family member or friend MUST come with you to your colonoscopy and REMAIN in the endoscopy area until you are discharged! You are NOT ALLOWED to drive, take a taxi or bus, or leave the Endoscopy Center ALONE. If you do not have a responsible auto crane driver (family member or friend) with you to [...] carbonated beverages such as elana sang or lemon-[place]pewa soda; Gatorade or other sports drinks (not [...] calling after 5:00 PM, please call Nurse batting machine operator insulation at [phone]. [facility] [address] [place] [id number] Index # [id number] Revised 08/2016 3 Colonoscopy Procedure Overview Please [...] If the nausea persists, please contact nurse applications coordinator at [phone]. You may experience skin irritation around the anus due to the passage of liquid stools. To prevent and treat skin irritation, you should: ?Apply Vaseline or Desitin ointment to the skin around the anus before drinking the bowel preparation medications. These products can be purchased at any [employer]. ?Wipe the skin after each bowel movement [...] performed your exam. 6 Revised 08/2016 Copyright [id number] [facility]. All rights reserved. Revised 08/2016 [address] in this encounter [facility] 11-15-2022 History of Presen t illness Narrative [...] Right 10/2016 breast abscess S BALLOON,UTERINE ABLATION [id number] TUBAL LIGATION HX 1995 ALLERGIES Patient has [...] Patient agreeable to treatment plan. Kandice Mario, SANG.MANAGER MARKET DEVELOPMENT [facility] OPEN ACCESS QUESTIONNAIRE 1. Are [...] Please send all open access questionnaires to [facility] Pool #[id number] documented in this encounter [facility] 11-08-2022 Note HNO ID: [id number] Author: Ton Conde PT Service: ? Author [...] Time Minutes (timed/untimed): 45 Ton Conde, PT [facility] 11-08-2022 History of Presen t illness Narrative [...] Ton Conde PT documented in this encounter [facility] 11-07-2022 Miscellaneous Notes Apts booked. Roya Cordon LPN Pt called and reports she got a letter that she needed further testing done regarding her mammogram. Please put in orders and let pt know so she can make the apts. Pt requesting to stay in [place] because of transportation. Roya Cordon LPN documented in this encounter [facility] 11-01-2022 Note HNO ID: [id number] Author: Ton Conde PT Service: ? 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 [facility] 10-27-2022 Miscellaneous Notes The following approved medication [...] prescribe medication to help her sleep. Uses [facility] [place]. Last OV: 10/19/22-with Dr. Cason for Est Care and low back pain. Please call patient with update. [phone] Thank you. documented in this encounter [facility] 10-26-2022 Miscellaneous Notes October 26, 2022 PID: [id number] Rosario Wyatt [address] [place] [address] Dear Ms. Wyatt, Your recent breast imaging exam on 10/25/2022 showed a possible finding that requires additional imaging studies for a complete evaluation. Most such findings are probably benign (not cancer). If you have a healthcare provider who ordered/prescribed your screening mammogram: Please call [phone] or [phone]: [phone] to schedule an appointment for your additional [...] and reports are kept on file at [facility] as part of your permanent medical record, and are available for your continuing care. Thank you for allowing us to help in meeting your health care needs. Sincerely, Dr. Sandoval Interpreting Radiologist [facility] (Additional imaging) documented in this encounter [facility] 10-25-2022 Note HNO ID: [id number] Author: RT Katie(Jose) Service: ? Author Type: Technologist Type: Progress Notes Filed: 10/25/2022 2:48 PM Note Text: Radiology Service Progress Note PATIENT NAME: oRsario Wyatt DATE OF SERVICE: October 25, 2022 [...] RT Katie(R) October 25, 2022 2:47 PM [facility] 10-25-2022 History of Presen t illness Narrative [...] 2022 2:47 PM documented in this encounter [facility] 10-19-2022 Note HNO ID: [id number] Author: RT Julieth(R) Service: Radiology Author Type: [...] RT Julieth(R) October 19, 2022 5:38 PM [facility] 10-19-2022 Note HNO ID: [id number] Author: Edward Bragg MD Service: ? Author Type: Physician Type: Progress Notes Filed: 10/20/2022 4:30 PM Note Text: This note was created using [employer]. Subjective Patient presents with: Establish Care Patient [...] Right 10/2016 breast abscess S BALLOON,UTERINE ABLATION [id number] TUBAL LIGATION HX 1995 FAMILY HISTORY Problem [...] CONSULT TO PHYSI (more content not included)... [facility] 10-18-2022 Note HNO ID: [id number] Author: RAHEEM Johnson Service: ? Author Type: Physician Collar Stitcher Type: Progress Notes Filed: 10/18/2022 7:35 AM [...] ER evaluation. Kr (more content not included)... [facility] 10-18-2022 History of Presen t illness Narrative [...] Right 10/2016 breast abscess S BALLOON,UTERINE ABLATION [id number] 2007 TUBAL LIGATION HX 1995 ALLERGIES Patient [...] evaluation. RAHEEM Johnson documented in this encounter [facility] documented as of this encounter (statuses as of 10/28/2022) [facility] History of Past illness Narrative* Problem Noted Date Resolved Date Chronic diarrhea 06/23/2016 10/19/2022 documented as of this encounter (statuses as of 10/28/2022) [facility] History of Past illness Narrative* Problem Noted Date Resolved Date Chronic diarrhea 06/23/2016 10/19/2022 documented as of this encounter (statuses as of 11/07/2022) [address]08-2016 History of Past illness Narrative* Problem Noted Date Resolved Date Chronic diarrhea 06/23/2016 10/19/2022 documented as of this encounter (statuses as of 11/09/2022) [facility] History of Past illness Narrative* Problem Noted Date Resolved Date Chronic diarrhea 06/23/2016 10/19/2022 documented as of this encounter (statuses as of 11/15/2022) [facility] History of Past illness Narrative* Problem Noted Date Diagnosed Date Resolved Date Chronic diarrhea 06/23/2016 10/19/2022 documented as of this encounter (statuses as of 05/21/2023) [facility] History of Past illness Narrative* Problem Noted Date Diagnosed Date Resolved Date Chronic diarrhea 06/23/2016 10/19/2022 documented as of this encounter (statuses as of 05/21/2023) [facility] History of Past illness Narrative* Problem Noted Date Diagnosed Date Resolved Date Chronic diarrhea 06/23/2016 10/19/2022 documented as of this encounter (statuses as of 05/21/2023) 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 [facility] Diagnosis Abnormal screening mammogram- Primary Abnormal mammogram, unspecified [facility] Diagnosis Acute back pain with sciatica, right- Primary [facility] Diagnosis Skin lesion of left leg- Primary Unspecified disorder of skin and subcutaneous tissue Acute back pain with sciatica, right Elevated liver enzymes Other nonspecific abnormal serum enzyme levels Special screening for malignant neoplasms, colon Encounter for immunization Need for other specified prophylactic vaccination against single bacterial disease [facility] Diagnosis Abnormal screening mammogram Abnormal mammogram, unspecified [facility] [place] Diagnosis Screening mammogram for breast cancer documented in this encounter [facility] note* Diagnosis Abnormal screening mammogram Abnormal mammogram, unspecified documented in this encounter [facility] for referral (narrative)* Diagnostic Procedure Only (Routine) - Pending Review Specialty Diagnoses / Procedures Referred By Madeline hamlin Referred To Contact [facility] Diagnoses Abnormal screening mammogram Procedures US BREAST LTD LEFT US BREAST UNI REAL TIME WITH IMAGE LIMITED Kandice Mario APRN.CNP [address] [place] [address] [facility] [address] [id number] Referral ID Status Reason Start Date Expiration Date Visits Requested Visits Authorized [id number] Pending Review Auto-Generat ed Referral 10/31/2022 11/30/2023 1 1 * Diagnostic Procedure Only (Routine) - Pending Review Specialty Diagnoses / Procedures Referred By Madeline hamlin Referred To Contact [facility] Diagnoses Abnormal screening mammogram Procedures US BREAST LTD RIGHT US BREAST UNI REAL TIME WITH IMAGE LIMITED Kandice Mario APRN.CNP [address] [place] [address] [facility] [address] [place] [address] Referral ID Status Reason Start Date Expiration Date Visits Requested Visits Authorized [id number] Pending Review Auto-Generat ed Referral 10/31/2022 11/30/2023 1 1 * Diagnostic Procedure Only (Routine) - Pending Review Specialty Diagnoses / Procedures Referred By Madeline hamlin Referred To Contact [facility] Diagnoses Abnormal screening mammogram Procedures HERMILA DIAGNOSTIC BILATERAL DIAGNOSTIC MAMMOGRAPHY COMPUTER-AIDED DETCJ BI Kandice Mario APRN.CNP [address] [place] [address] [facility] [address] [place] [address] Referral ID Status Reason Start Date Expiration Date Visits Requested Visits Authorized [id number] Pending Review Auto-Generat ed Referral 10/31/2022 11/30/2023 1 1 [facility] for referral (narrative)* Outpatient Procedure (Routine) - Pending Review Specialty Diagnoses / Procedures Referred By Contac t Referred To Contact [facility] Diagnoses Special screening for malignant neoplasms, colon Procedures COLONOSCOPY SCREENING COLONOSCOPY FLX DX W/COLLJ SPEC WHEN PFRMD Kandice Mario APRN.MANAGER MARKET DEVELOPMENT [address] [place] [address] [facility] [address] [place] [address] Referral ID Status Reason Start Date Expiration Date Visits Requested Visits Authorized [id number] Pending Review Auto-Generat ed Referral 11/15/2022 11/16/2023 1 1 * Consult, Test, Treat (Routine) - Pending Review Specialty Diagnoses / Procedures Referred By Contac t Referred To Contact Dermatology Diagnoses Skin lesion of left leg Procedures CONSULT TO DERMATOLOGY OFFICE/OUTPATIENT NEW HIGH MDM 60-74 MINUTES Kandice Mario APRN.CNP [address] [place] [address] Referral ID Status Reason Start Date Expiration Date Visits Requested Visits Authorized [id number] Pending Review PCP Requested Referral 11/15/2022 11/15/2023 1 1 [facility] for referral (narrative)* Diagnostic Procedure Only (Routine) - Pending Review Specialty Diagnoses / Procedures Referred By Contac t Referred To Contact [facility]AG[facility] Diagnoses Abnormal screening mammogram Procedures US BREAST LTD LEFT US BREAST UNI REAL TIME WITH IMAGE LIMITED Kandice Mario APRN.MANAGER MARKET DEVELOPMENT [address] [place] [address] [facility] [address] [place] [address] Referral ID Status Reason Start Date Expiration Date Visits Requested Visits Authorized [id number] Pending Review Auto-Generat ed Referral 10/31/2022 11/30/2023 1 1 * Diagnostic Procedure Only (Routine) - Pending Review Specialty Diagnoses / Procedures Referred By Contac t Referred To Contact [facility] IMAG[facility] Diagnoses Abnormal screening mammogram Procedures US BREAST LTD RIGHT US BREAST UNI REAL TIME WITH IMAGE LIMITED Kandice Mario APRN.CNP [address] [place] [address] [facility] [address] [place] [address] Referral ID Status Reason Start Date Expiration Date Visits Requested Visits Authorized [id number] Pending Review Auto-Generat ed Referral 10/31/2022 11/30/2023 1 1 [facility] for referral (narrative)* Diagnostic Procedure Only (Routine) - Pending Review Specialty Diagnoses / Procedures Referred By Madeline hamlin Referred To Contact [facility] IMAGING Diagnoses Screening mammogram for breast cancer Procedures HERMILA SCREENING SCREENING MAMMOGRAPHY BI 2-VIEW BREAST INC Edward Chaves MD [facility] [place] [address] [facility] Imaging [address] [place] [address] Referral ID Status Reason Start Date Expiration Date Visits Requested Visits Authorized [id number] Pending Review Auto-Generat ed Referral 10/19/2022 11/18/2023 1 1 [facility] for visit Narrative* Diagnostic Procedure Only (Routine) - Pending Review Specialty Diagnoses / Procedures Referred By Madeline t Referred To Contact [facility] IMAGING Diagnoses Screening mammogram for breast cancer Procedures HERMILA SCREENING SCREENING MAMMOGRAPHY BI 2-VIEW BREAST INC Edward Chaves MD [address] [place] [address] [facility] Imaging [address] [place] [address] Referral ID Status Reason Start Date Expiration Date Visits Requested Visits Authorized [id number] Pending Review Auto-Generat ed Referral 10/19/2022 11/18/[address] [facility] Diagnostic Procedure Only (Routine) - Closed Specialty Diagnoses / Procedures Referred By Contac t Referred To Contact [facility] IMAGING Diagnoses Abnormal screening mammogram Procedures HERMILA DIAGNOSTIC BILATERAL DIAGNOSTIC MAMMOGRAPHY COMPUTER-AIDED DETCJ BI Older, Kandice, RN BABY.MANAGER MARKET DEVELOPMENT [address] [place] [address] Br Imaging [address] [place] [address] Referral ID Status Reason Start Date Expiration Date V isits Requested Visits Authorized [id number] Closed Auto-Generate d Referral 10/31/2022 11/30/[address] [facility] Summary Purpose Family History No Family History Records FoundNo Family History Records Found Advance Directives No Advanced Directives Records FoundNo Advanced Directives Records Found Additional Source Comments INFORMATION SOURCE (unrecogn ized section and content) DATE CREATED AUTHOR AUTHOR'S ORGANIZ ATION 06/09/2023 [facility] Source Comments (unrecognize d section and content) In the event this informatio n is protected by the Federal Confidentiality of Alcohol and Drug Abuse Patient Records regulations: The Federal rules restrict any use of the information to criminally investigate or prosecute any alcohol or drug abuse patient.[facility] the event this information is protected by the Federal Confidentiality of Alcohol and Drug Abuse Patient Records regulations: The Federal rules restrict any use of the information to criminally investigate or prosecute any alcohol or drug abuse patient.[facility] the event this information is protected by the Federal Confidentiality of Alcohol and Drug Abuse Patient Records regulations: The Federal rules restrict any use of the information to criminally investigate or prosecute any alcohol or drug abuse patient.[facility] the event this information is protected by the Federal Confidentiality of Alcohol and Drug Abuse Patient Records regulations: The Federal rules restrict any use of the information to criminally investigate or prosecute any alcohol or drug abuse patient.[facility] the event this information is protected by the Federal Confidentiality of Alcohol and Drug Abuse Patient Records regulations: The Federal rules restrict any use of the information to criminally investigate or prosecute any alcohol or drug abuse patient.[facility] the event this information is protected by the Federal Confidentiality of Alcohol and Drug Abuse Patient Records regulations: The Federal rules restrict any use of the information to criminally investigate or prosecute any alcohol or drug abuse patient.[facility] the event this information is protected by the Federal Confidentiality of Alcohol and Drug Abuse Patient Records regulations: The Federal rules restrict any use of the information to criminally investigate or prosecute any alcohol or drug abuse patient.[facility] the event this information is protected by the Federal Confidentiality of Alcohol and Drug Abuse Patient Records regulations: The Federal rules restrict any use of the information to criminally investigate or prosecute any alcohol or drug abuse patient.[facility] the event this information is protected by the Federal Confidentiality of Alcohol and Drug Abuse Patient Records regulations: The Federal rules restrict any use of the information to criminally investigate or prosecute any alcohol or drug abuse patient.[facility] Reason for Visit (unrecogniz ed section and content) Reason Comments Medication Request Reason Comments mammogram orders/US Reason Comments Physical Therapy Specialty Diagnoses / Procedures Referred By Juanac t Referred To Contact INTERNAL MEDICINE Diagnoses BACK PAIN Procedures NEW PATIENT Self [address] [place] [address] Referral ID Status Reason Start Date Expiration Date Visits Requested Visits Authorized [id number] Authorized Patient Cleared - Qualified HCAP/501/FA 10/17/2022 01/15/2023 99 99 Reason Comments 4 week follow up - back pain, lab result s Specialty Diagnoses / Procedures Referred By Contac t Referred To Contact INTERNAL MEDICINE Diagnoses BACK PAIN Procedures NEW PATIENT Self [address] [place] [address] Reason Comments Radiology US Specialty Diagnoses / Procedures Referred By Contac t Referred To Contact [facility] Diagnoses Abnormal screening mammogram Procedures US BREAST LTD LEFT US BREAST UNI REAL TIME WITH IMAGE LIMITED Fabiano, Kandice, RN BABY.MANAGER MARKET DEVELOPMENT [address] [place] [address] [facility] [address] [place] [address] Referral ID Status Reason Start Date Expiration Date Visits Requested Visits Authorized [id number] Pending Review Auto-Generat ed Referral 10/31/2022 11/30/2023 1 1 Care Teams (unrecognized sec tion and content) Senior Software Manager Relationship Specialty Start Date End Date Edward Bragg MD [address] [place] [address] PCP - General Internal Medicine 10/19/22 Senior Software Manager Relationship Specialty Start Date End Date Edward Bragg MD [address] [place] [address] PCP - General Internal Medicine 10/19/22 Senior Software Manager Relationship Specialty Start Date End Date Edward Bragg MD [address] [place] [address] PCP - General Internal Medicine 10/19/22 Senior Software Manager Relationship Specialty Start Date End Date Edward Bragg MD [facility] [place] [address] PCP - General Internal Medicine 10/19/22 Senior Software Manager Relationship Specialty Start Date End Date Edward Bragg MD [address] [place] [address] PCP - General Internal Medicine 10/19/22 Senior Software Manager Relationship Specialty Start Date End Date Edward Bragg MD [address] [place], [place] [address] PCP - General Internal Medicine 10/19/22 Senior Software Manager Relationship Specialty Start Date End Date Edward Bragg MD [address] [place], [place] [id number] PCP - General Internal Medicine 10/19/22 FOR [...] BE BASED ON THE PRIMARY CLINICAL RECORDS. [employer] [facility]. provides no warranty or guarantee of the accuracy or completeness of information in this document.
== END | disposition home or self-care (01) ==
LOC: PSN 13:23
PROVIDERS: PCP Family Medicine; Referring Provider Family Medicine; Visit Provider Family Medicine
DX: M54.12 Radiculopathy, cervical region (principal)
CPT/HCPCS: 95886; 95913

== ENCOUNTER → 2024-09-10 | Outpatient (CLI) | payer OTHER, SELFPAY ==
--- NOTE | 2024-09-10 11:45 | BI_ITS ---
PROCEDURE: SCRN MAMM (CAD)W/SANJUANA BILAT REASON FOR EXAM: F, Age 48 y/o, presents for annual screening mammogram. Family history of breast cancer in her paternal grandmother. TECHNIQUE: Bilateral screening digital breast tomosynthesis with 2D and 3D images. Computer aided detection. COMPARISON: 08/28/2023, 12/06/2022, 10/25/2022 FINDINGS: There are scattered areas of fibroglandular density. No suspicious masses, areas of developing architectural distortion, or suspicious calcifications. BI/SCRN MAMM (CAD)W/SANJUANA BILAT IMPRESSION: There is no mammographic evidence of malignancy in either breast. BI-RADS 1: NEGATIVE. RECOMMEND ANNUAL MAMMOGRAPHIC SCREENING. Follow-up code: Routine Follow-up The patient will be notified of the results by letter. Reading Location: [id number]
== END | disposition home or self-care (01) ==
LOC: OPBI 11:44
PROVIDERS: PCP Family Medicine; Referring Provider Family Medicine; Visit Provider Family Medicine
DX: Z12.31 Encounter for screening mammogram for malignant neoplasm of breast (principal)
CPT/HCPCS: 77063; 77067

== ENCOUNTER 2024-10-22 07:08 | Day surgery (SDC) | payer OTHER, SELFPAY ==
[2024-10-22] VITALS (8 sets, daily range): BP systolic 86–106; BP diastolic 66–74; PULSE 69–76; RESP 16; TEMP 36.1–36.7; O2SAT 95–99; BMI 23.8
--- NOTE | 2024-10-22 08:00 | PRE.ANES_ITS ---
ASA Classification* ASA Classification ASA Classification: 2 Assessment & Plan Anesthesia* Anesthesia Assessment Anesthesia Assessment: Discussed sedation and/or anesthesia options, risks, benefits, and alternatives with patient/parents/legal guardian/POA. Questions invited. The patient/parents/legal guardian/POA seems to understand and agrees to proceed with anesthesia plan. Reviewed the physical assessment, medical history, allergy history and patient home medications list prior to surgery/procedure/anesthetic and documented any changes. Performed airway and anesthesia risk assessments. Anesthesia Type Anesthesia Type: MAC History Source History Obtained from:: Patient and Chart Anesthesia Focused Assessment* Temperature: 98.1 F Pulse Rate: 75 Blood Pressure: 106/74 Respiratory Rate: 16 Pulse Ox: 99 Oxygen Delivery Method: Room Air Airway Assessment Mouth opens: >3 cm Mallampati Score: I Teeth Condition: Dentures (Full upper dentures.) and Missing (Patient has 8 natural teeth left on the bottom. They are tight.) Neck Range of motion (ROM): Full ROM Focused Labs Anesthesia Preop lab: CBC WBC 7.5 K/mm3 (4.4-11.0) 08/08/23 15:40 08/08/23 RBC 4.40 M/mm3 (4.2-5.4) 08/08/23 15:40 08/08/23 Hgb 13.3 g/dL (12.0-15.0) 08/08/23 15:40 08/08/23 Hct 41.7 % (37-47) 08/08/23 15:40 08/08/23 Plt Count 267 K/mm3 (150-450) 08/08/23 15:40 08/08/23 CHEMISTRY Potassium 3.7 mmol/L (3.5-5.1) 08/08/23 15:40 08/08/23 Sodium 143 mmol/L (136-145) 08/08/23 15:40 08/08/23 BUN 16 mg/dL (7-18) 08/08/23 15:40 08/08/23 Creatinine 0.59 mg/dL (0.55-1.02) 08/08/23 15:40 08/08/23 Glucose 92 mg/dL (74-106) 08/08/23 15:40 08/08/23 TSH 1.15 uIU/mL (0.358-3.74) 08/08/23 15:40 COAG Pre-Assessment Diagnosis/Proposed Procedure Planned Operative Procedure(s): COLONOSCOPY Anesthesia History 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 When Was Last Pacemaker Check QUESTION #4 FULL TEXT: You/Your Family Experience fever (hyperthermia) with Anesthesia Last Oral Intake Last Oral intake: Last Oral Intake NPO since 04:00 10/22/24 07:31 Meds taken in AM with sips of No 10/22/24 07:31 water? Meds patient instructed to take am of surgery Any additional information?: Yes NPO since: 04:00 (Patient finished prep at 4 AM.) Meds taken in AM with sips of water?: No PONV PONV - green meat grader: PONV - green meat grader Female Yes 10/17/24 15:20 HX of Motion Sickness No 10/17/24 15:20 HX of N/V After Surgery Yes 10/17/24 15:20 Non-Smoker No 10/17/24 15:20 Duration of Surgery greater No 10/17/24 15:20 than 60 minutes Number of Risk Factors 2 10/17/24 15:20 PONV Score Moderate Risk 10/17/24 15:20 Height & Weight Height & Weight: Anesthesia: Height & Weight Height 5 ft 6 in 10/22/24 07:31 Weight: 67 kg 10/22/24 07:31 Body Mass Index (BMI) 23.8 10/22/24 07:31 Respiratory Assessment Respiratory Assessment - green meat grader: Respiratory Tract Infection Hx - green meat grader Hx Respiratory Tract Infection No 10/17/24 15:20 STOP Sleep Apnea STOP Sleep Apnea - green meat grader: STOP Sleep Apnea - green meat grader Hx Hypertension No 10/17/24 15:20 Hx Sleep Apnea No 10/17/24 15:20 CPAP BIPAP Do you snore loudly (louder No 10/17/24 15:20 than talking or can be heard Do you often feel tired/ No 10/17/24 15:20 fatigued/ sleepy during daytime? Has anyone observed you stop No 10/17/24 15:20 breathing during sleep? STOP Results Negative 10/17/24 15:20 QUESTION #5 FULL TEXT : Do you snore loudly (louder than talking or can be heard through closed doors)? 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 Specify any problems Hx of Preganancy in last 3 No 10/17/24 15:20 Months Nurse Filling Out Transfusion MGRIFFITH 10/17/24 15:20 & Questions: Date: 10/17/24 10/17/24 15:20 Time: 15:23 10/17/24 15:20 Patient unable to answer at this time (ie. confused, unrespo /Reproduction History /Reproductive History - green meat grader: /Reproductive Hx- green meat grader Hx Now No 10/17/24 15:20 Gestational Age (in weeks): EDC: Hx Hx Para Hx Section SAB No 10/17/24 15:20 PFSH Medical History Wears glasses Wears dentures Alcohol use Arthritis Injury of back Injury of head and neck Restless legs PONV (postoperative nausea and vomiting) Smoker Shortness of breath on exertion Leg cramps History of atrial fibrillation Lumbar disc herniation Home Medications ?Medication ?Instructions ?Recorded ?Last Taken ?Type cetirizine 10 mg capsule (Zyrtec) 10 mg PO DAILY 11/20 Unknown History multivitamin (Daily Multiple 1 ea PO DAILY 11/24/15 Un known History tablet) diclofenac sodium 1 % topical gel 2 g topical .qid PRN pain 08/15/24 Unknown History ibuprofen 200 mg tablet 200 mg PO Q6H PRN pain 08/15 Unknown History turmeric 400 mg capsule 400 mg PO QDAY 08/15/24 Unkn own History magnesium spray QHS 10/17/24 Unknown History Allergy/AdvReac Type Severity Reaction Status Date / Time sulfamethoxazole (From AdvReac Nausea/Vom/ Verified 10/22/24 07:31 Bactrim) Diarrhea trimethoprim (From Bactrim) AdvReac Nausea/Vom/ Verified 10/22/24 07:31 Diarrhea Surgical History History of tubal ligation History of lumpectomy of right breast History of surgery History of abdominal hysterectomy Social History household members: none current occupational status: employed Smoking Status: Current every day smoker tobacco type: cigarettes Review of Systems (Anesthesia) ROS Narrative System reviewed and no additional complaints, except as documented.
--- NOTE | 2024-10-22 08:41 | HP.PCM_ITS ---
HPI - General General Date of Admission: 10/22/24 Date of Service: 10/22/24 Chief Complaint: Colonoscopy HPI Narrative ROSARIO WYATT, is a 48 F who presents today for screening colonoscopy. She has had no previous colonoscopy. No GI issues or symptoms. No family history of colon polyps or colon cancers [facility] Medical History Wears glasses Wears dentures Alcohol use Arthritis Injury of back Injury of head and neck Restless legs PONV (postoperative nausea and vomiting) Smoker Shortness of breath on exertion Leg cramps History of atrial fibrillation Lumbar disc herniation Home Medications ?Medication ?Instructions ?Recorded ?Last Taken ?Type cetirizine 10 mg capsule (Zyrtec) 10 mg PO DAILY 11/20 Unknown History multivitamin (Daily Multiple 1 ea PO DAILY 11/24/15 Un known History tablet) diclofenac sodium 1 % topical gel 2 g topical .qid PRN pain 08/15/24 Unknown History ibuprofen 200 mg tablet 200 mg PO Q6H PRN pain 08/15 Unknown History turmeric 400 mg capsule 400 mg PO QDAY 08/15/24 Unkn own History magnesium spray QHS 10/17/24 Unknown History Allergy/AdvReac Type Severity Reaction Status Date / Time sulfamethoxazole (From AdvReac Nausea/Vom/ Verified 10/22/24 07:31 Bactrim) Diarrhea trimethoprim (From Bactrim) AdvReac Nausea/Vom/ Verified 10/22/24 07:31 Diarrhea Surgical History History of tubal ligation History of lumpectomy of right breast History of surgery History of abdominal hysterectomy Social History household members: none current occupational status: employed Smoking Status: Current every day smoker tobacco type: cigarettes Vital Signs Vital Signs Vital Signs: 10/22/24 07:31 10/22/24 07:31 10/22/24 08:10 Temperature 98.1 F 98.1 F Temperature Source Temporal Pulse Rate 75 75 Respiratory Rate 16 16 Respiratory Pattern Normal Blood Pressure 106/74 106/74 Blood Pressure Mean 84 Blood Pressure Source Monitor Blood Pressure Position Semi-Fowlers Blood Pressure Location Right Arm Pulse Ox 99 99 Oxygen Delivery Method Room Air Room Air Weight Weight: 147 lb 11.355 oz Body Mass Index (BMI) 23.8 Physical Exam Const alert, oriented x3 and no apparent distress Assessment & Plan Assessment/Plan (1) Encounter for screening for malignant neoplasm of colon: PLAN: Plan The patient is a 48-year-old female in need of a screening colonoscopy. She has had no prior colonoscopies. No GI issues or complaints. We discussed the details of the planned procedure as well as risk benefits and alternatives. She wishes to proceed. This will begin momentarily. Charges/Coding Visit Charges Inpatient E&M: 55412 Init Hosp L1
--- NOTE | 2024-10-22 09:23 | PCM.POST.ANE ---
Anesthesia: Postop Eval I Current Vital Signs Temperature: 97.2 F Pulse Rate: 76 Blood Pressure: 86/72 Respiratory Rate: 16 Pulse Ox: 96 Oxygen Delivery Method: Room Air Assessment Airway patent: Yes Spontaneous unlabored respirations: Yes Mental status: Awake and Calm nausea: No Vomiting: No Anesthesia Complication: No Fluid Hydration Crystalloid volume administer (ml): 40 Total IV fluid infused: 40 Progress Note Anesthesia document: Postop Eval 1 completed: Yes
--- NOTE | 2024-10-22 09:24 | OP.CCLET_ITS ---
10/22/2024 Joann Live [place] [address] [place] [address] Re : Colonoscopy procedure for Angela Kaiser Dear Dr. Live This procedure was performed on Tuesday, October 22, 2024. My impressions and recommendations are as follows: Impressions : - Diverticulosis in the entire examined colon. - Internal hemorrhoids. - The examination was otherwise normal on direct and retroflexion views. - No specimens collected. Recommendations : - Discharge patient to home. - High fiber diet. - Repeat colonoscopy in 10 years for screening purposes. - Return to my office PRN. - Continue present medications. My findings are described in the full procedure note, which is enclosed. If I can be of further assistance, please feel free to contact me at . Sincerely, Justus Robertson MD 10/22/2024 9:23:43 AM This report has been signed electronically.
--- NOTE | 2024-10-22 09:24 | OP.COLON_ITS ---
Patient Name: Angela Kaiser Procedure Date: 10/22/2024 8:46 AM Date of : 1975 Age: 48 Procedure: Colonoscopy Indications: Screening for colorectal malignant neoplasm Providers: Justus Robertson MD Referring MD: Joann Live Medicines: Monitored Anesthesia Care Patient Profile: Refer to note in patient chart for documentation of history and physical. Last Colonoscopy: none. The patient's first colonoscopy is today. Complications: No immediate complications. Estimated blood loss: None. Procedure: Pre-Anesthesia Assessment: - Prior to the procedure, a History and Physical was performed, and patient medications and allergies were reviewed. The patient's tolerance of previous anesthesia was also reviewed. The risks and benefits of the procedure and the sedation options and risks were discussed with the patient. All questions were answered, and informed consent was obtained. Prior Anticoagulants: The patient has taken no anticoagulant or antiplatelet agents. ASA Grade Assessment: II - A patient with mild systemic disease. After reviewing the risks and benefits, the patient was deemed in satisfactory condition to undergo the procedure. After I obtained informed consent, the scope was passed under direct vision. Throughout the procedure, the patient's blood pressure, pulse, and oxygen saturations were monitored continuously. The adult colonoscope was introduced through the anus and advanced to the cecum, identified by the appendiceal orifice, IC valve and transillumination. The ileocecal valve, appendiceal orifice, and rectum were photographed. The entire colon was well visualized. The colonoscopy was performed without difficulty. The patient tolerated the procedure well. The quality of the bowel preparation was adequate. Moderate Sedation: See the other procedure note for documentation of moderate sedation with intraservice time. Scope In: 8:57:10 AM Scope Withdrawal Time 0 hours 9 minutes 34 seconds Scope Out: 9:15:51 AM Total Procedure Duration Time 0 hours 18 minutes 41 seconds Findings: The perianal and digital rectal examinations were normal. Multiple small and large-mouthed diverticula were found in the entire colon. Internal hemorrhoids were found during retroflexion. The hemorrhoids were small. The exam was otherwise without abnormality on direct and retroflexion views. Impression: - Diverticulosis in the entire examined colon. - Internal hemorrhoids. - The examination was otherwise normal on direct and retroflexion views. - No specimens collected. Recommendation: - Discharge patient to home. - High fiber diet. - Repeat colonoscopy in 10 years for screening purposes. - Return to my office PRN. - Continue present medications. Procedure Code(s): --- Professional --- 90875, Colonoscopy, flexible; diagnostic, including collection of specimen(s) by brushing or washing, when performed (separate procedure) Diagnosis Code(s): --- Professional --- Z12.11, Encounter for screening for malignant neoplasm of colon K57.30, Diverticulosis of large intestine without perforation or abscess without bleeding K64.8, Other hemorrhoids CPT copyright 2021 [employer]. All rights reserved. The codes documented in this report are preliminary and upon medical records coder review may be revised to meet current compliance requirements. Justus Robertson MD 10/22/2024 9:23:43 AM This report has been signed electronically. Number of Addenda: 0 Note Initiated On: 10/22/2024 8:46 AM
--- NOTE | 2024-10-22 12:29 | PCM.POSTANE2 ---
Anesthesia Postop Eval I Sum Postop Eval Completion status Anesthesia document: Postop Eval 1 completed: Yes Anesthesia Postop Eval I Summary Anesthesia Postop Eval I Summary: Anesthesia Postop Eval I: Assessment Summary Airway patent Yes 10/22/24 09:24 [email or web address] Spontaneous unlabored Yes 10/22/24 09:24 [email or web address] respirations Mental status Awake,Calm 10/22/24 09:24 [email or web address] nausea No 10/22/24 09:24 [email or web address] Vomiting No 10/22/24 09:24 [email or web address] Anesthesia Postop Eval I: Fluid Summary Crystalloid volume administer 40 10/22/24 09:24 [email or web address] (ml) Colloids volume administered ( ml) Blood Product volume administered (ml) Total IV fluid infused 40 10/22/24 09:24 [email or web address] Anesthesia Postop Eval I: Summary Notes Anesthesia Complication No 10/22/24 09:24 [email or web address] Anesthesia Complication Comment: Post-operative progress note Anesthesia: Postop Eval II Evaluation Mental status: Awake and Calm Pain Level: 0 nausea: No Vomiting: No Complications Anesthesia Complication: No
== END 2024-10-22 09:47 | disposition home or self-care (01) ==
LOC: EN 07:09 → AC 07:10
PROVIDERS: PCP Family Medicine; Referring Provider Family Medicine; Visit Provider Surgery
PROC: 0DJD8ZZ Inspection of Lower Intestinal Tract, Via Natural or Artificial Opening Endoscopic (ICD-10-PCS; CPT 45378; principal; 2024-10-22 08:10)
DX: Z12.11 Encounter for screening for malignant neoplasm of colon (principal); K64.8 Other hemorrhoids; F17.210 Nicotine dependence, cigarettes, uncomplicated; K57.30 Diverticulosis of large intestine without perforation or abscess without bleeding
CPT/HCPCS: 45378; A4216; J2405

== ENCOUNTER → 2025-01-07 | Outpatient (CLI) | payer OTHER, SELFPAY ==
--- NOTE | 2025-01-07 13:05 | CT_ITS ---
PROCEDURE: LOW DOSE CT LUNG SCREENING 01/07/2025 REASON FOR EXAM: LUNG CANCER SCREENING TECHNIQUE: LOW DOSE CT LUNG SCREENING Coronal and Sagittal reconstruction series were provided. One or more dose reduction techniques were used (e.g., Automated exposure control, adjustment of the mA and/or kV according to patient size, use of iterative reconstruction technique). REFERENCE LINK: TV2 Holding Lung-RADS RADIATION DOSE SUMMARY: DLP: 59 mGycm COMPARISON: None FINDINGS: LUNGS AND PLEURA: 4.5 x 3.9 x 2.9 cm mass is noted within the right apex with spiculated borders (series 2, iamge 62) concerning for neoplastic process. A smaller pulmonary lesion measuring 1.4 x 1.2 x 1.5 cm within the right anna ( series 2, image 89). Scattered biapical pneumatoceles. Mild pulmonary emphysema. No pleural effusion or pneumothorax. MEDIASTINUM: Prominent mediastinal lymph nodes. The heart shows no acute findings. Mild atherosclerosis of the thoracic aorta. The pulmonary trunk and branches of the vessels in the mediastinum are within normal limits. SUPRACLAVICULAR AND AXILLARY: No abnormalities seen in these regions. No mass or significant lymphadenopathy. UPPER ABDOMEN: The visualized upper abdomen is unremarkable. BONES AND SOFT TISSUES: The bony structures show no significant acute findings. No focal bony mass lesions noted. The subcutaneous soft tissues are unremarkable. CT/Low Dose CT Lung Screening IMPRESSION: 4.5 x 3.9 x 2.9 cm mass is noted within the right apex with spiculated borders concerning for neoplastic process. A smaller pulmonary lesion measuring 1.4 x 1.2 x 1.5 cm within the right anna. Reading Location: [facility]
== END | disposition home or self-care (01) ==
LOC: CT 13:01
PROVIDERS: PCP Family Medicine; Referring Provider Nurse Practitioner Family; Visit Provider Nurse Practitioner Family
DX: Z12.2 Encounter for screening for malignant neoplasm of respiratory organs (principal); Z87.891 Personal history of nicotine dependence
CPT/HCPCS: 71271

== ENCOUNTER → 2025-01-08 | Outpatient (CLI) | payer OTHER, SELFPAY ==
[2025-01-08 14:05] LABS: Platelet Count 284 K/mm3 (150-450)
[2025-01-08 14:18] LABS: International Normalized Ratio 0.9; Partial Thromboplast Time 25.1 Seconds (24.1-36.2)
== END | disposition home or self-care (01) ==
LOC: PAVLAB 13:51
PROVIDERS: PCP Family Medicine; Referring Provider Nurse Practitioner Acute Care; Visit Provider Nurse Practitioner Acute Care
DX: I48.91 Unspecified atrial fibrillation (principal); R91.8 Other nonspecific abnormal finding of lung field; R06.00 Dyspnea, unspecified
CPT/HCPCS: 36415; 85049; 85610; 85730

== ENCOUNTER 2025-01-21 06:49 | Outpatient (CLI) | payer OTHER, SELFPAY ==
[2025-01-21] VITALS (16 sets, daily range): BP systolic 105–127; BP diastolic 71–88; PULSE 64–85; RESP 11–25; TEMP 37.1; O2SAT 60–100; BMI 24.5
--- NOTE | 2025-01-21 | ASPIGT_PTH ---
PATIENT: ROSARIO WYATT LOC: [place] U#:[id number] AGE/SX: 49/F ROOM: RE01/21/[address]: VADIM Poe : 1975 BED: DIS: 01/21/2025 SPEC #: [id number] RECD: 01/21/25 10:00 STATUS: [place] #: [id number] JEFFERSON: 01/21/25 00:[address]: Negin Acevedo NP DEPT: SURGICAL PATHOLOGY RECD BY: Yung Gr ENTERED: 01/21/25 10:31 SP TYPE: ASP RAD OTHR DR: Dr. Joann Live MD Tissues: A - Lung, NOS Procedures: FNA Specimen Adequacy Immunohistochemical Stains Special Stain Group II Surgery Specimen Level IV Imprint (control) IHC Stain ADDITIONAL HEADER OPERATION: CT guided right lung biopsy PRE-OP DIAGNOSIS: Other nonspecific abnormal findings TISSUE SUBMITTED: A. Lung biopsy, 20g x 6 MICROSCOPIC DIAGNOSIS A. Lung, right, CT-guided core biopsy: - Squamous cell carcinoma - see note and Comment. Note: The tumor cells are negative for CK7 and CK20, but strongly and diffusely positive for CK5/6 and p40, consistent with squamous differentiation. TTF-1 and Napsin A are negative. The IHC stains are not conclusive as to the origin of this tumor. Correlation with clinical and imaging findings is required to determine the primary site. COMMENT The specimen is evaluated at the time of biopsy by Dr. Rodriguez. Immediate Evaluation = 3. Malignant. 4. Malignant. Selected slides/images were reviewed in intradepartmental consultation by Dr Gustavo Hoff (thoracic pathology division, [facility]). MICROSCOPIC DESCRIPTION Slides are reviewed. All matched controls reacted appropriately. These tests were developed and their performance characteristics determined by [facility]. They may not have been cleared or approved by the U.S. Food and Drug Administration. The FDA has determined that such clearance or approval is not necessary.? The above immunohistochemical/dualISH?markers are reviewed by the Pathologist. GROSS DESCRIPTION A. Received in formalin labeled with the patient's name and date of are multiple tissue core fragments, 0.1 cm to 0.6 cm in length by <0.1 cm in diameter. The specimen is evaluated intraoperatively and is entirely submitted in 1 cassette. [place] 01/21/2025 CPT:[id number] ADDENDUM ADDENDUM ADDENDUM ADDENDUM ADDENDUM ADDENDUM ADDENDUM ADDENDUM ADDENDUM ADDENDUM ADDENDUM ADDENDUM 03/24/2025 08:25 ADDENDUM 03/04/2025 12:11 ADDENDUM 03/04/2025 12:11 ADDENDUM 03/04/2025 12:11 ADDENDUM 03/04/2025 12:11 ADDENDUM 03/04/2025 12:11 This addendum is added to incorporate an outside pathology consultation report. The case was examined at [facility] by Dr. Lau (#[id number]) and the following diagnosis was rendered. A. Lung, right, CT-guided core biopsy: Poorly-differentiated squamous cell carcinoma. Diagnosis comment: PD-L1 IHC 22C3 pharmDx result, TPS: 90% Please see complete above mentioned consultation report in EMR This addendum is added to incorporate an outside pathology consultation report. The case was examined at [facility] by Dr. Andersen (#[id number]) and the following diagnosis was rendered. A. Lung, right, CT-guided core biopsy: Squamous cell carcinoma. Note: The neoplastic cells are positive for p40, CK5/6, and negative for CK7, CK20, TTF1, NapsinA (performed at the outside institution). Please see complete above mentioned consultation report in EMR
--- NOTE | 2025-01-21 | ASPIGT_PTH ---
PATIENT: ROSARIO WYATT LOC: [place] U#:[id number] AGE/SX: 49/F ROOM: RE01/21/[address]: VADIM Poe : 1975 BED: DIS: 01/21/2025 SPEC #: [id number] RECD: 01/21/25 10:00 STATUS: JAMAAL [place] #: [id number] JEFFERSON: 01/21/25 00:[address]: Negin Acevedo NP DEPT: SURGICAL PATHOLOGY RECD BY: Yung Gr ENTERED: 01/21/25 10:31 SP TYPE: ASP RAD OTHR DR: Dr. Joann Live MD Tissues: A - Lung, NOS Procedures: FNA Specimen Adequacy Immunohistochemical Stains Special Stain Group II Surgery Specimen Level IV Imprint (control) IHC Stain ADDITIONAL HEADER OPERATION: CT guided right lung biopsy PRE-OP DIAGNOSIS: Other nonspecific abnormal findings TISSUE SUBMITTED: A. Lung biopsy, 20g x 6 MICROSCOPIC DIAGNOSIS A. Lung, right, CT-guided core biopsy: - Squamous cell carcinoma - see note and Comment. Note: The tumor cells are negative for CK7 and CK20, but strongly and diffusely positive for CK5/6 and p40, consistent with squamous differentiation. TTF-1 and Napsin A are negative. The IHC stains are not conclusive as to the origin of this tumor. Correlation with clinical and imaging findings is required to determine the primary site. COMMENT The specimen is evaluated at the time of biopsy by Dr. Rodriguez. Immediate Evaluation = 3. Malignant. 4. Malignant. Selected slides/images were reviewed in intradepartmental consultation by Dr Gustavo Hoff (thoracic pathology division, [facility]). MICROSCOPIC DESCRIPTION Slides are reviewed. All matched controls reacted appropriately. These tests were developed and their performance characteristics determined by [facility]. They may not have been cleared or approved by the U.S. Food and Drug Administration. The FDA has determined that such clearance or approval is not necessary.? The above immunohistochemical/dualISH?markers are reviewed by the Pathologist. GROSS DESCRIPTION A. Received in formalin labeled with the patient's name and date of are multiple tissue core fragments, 0.1 cm to 0.6 cm in length by <0.1 cm in diameter. The specimen is evaluated intraoperatively and is entirely submitted in 1 cassette. [place] 01/21/2025 CPT:[id number] ADDENDUM ADDENDUM ADDENDUM ADDENDUM ADDENDUM ADDENDUM ADDENDUM ADDENDUM ADDENDUM ADDENDUM ADDENDUM ADDENDUM 03/24/2025 08:25 ADDENDUM 03/04/2025 12:11 ADDENDUM 03/04/2025 12:11 ADDENDUM 03/04/2025 12:11 ADDENDUM 03/04/2025 12:11 ADDENDUM 03/04/2025 12:11 This addendum is added to incorporate an outside pathology consultation report. The case was examined at [facility] by Dr. Lau (#[id number]) and the following diagnosis was rendered. A. Lung, right, CT-guided core biopsy: Poorly-differentiated squamous cell carcinoma. Diagnosis comment: PD-L1 IHC 22C3 pharmDx result, TPS: 90% Please see complete above mentioned consultation report in EMR This addendum is added to incorporate an outside pathology consultation report. The case was examined at [facility] by Dr. Andersen (#[id number]) and the following diagnosis was rendered. A. Lung, right, CT-guided core biopsy: Squamous cell carcinoma. Note: The neoplastic cells are positive for p40, CK5/6, and negative for CK7, CK20, TTF1, NapsinA (performed at the outside institution). Please see complete above mentioned consultation report in EMR
--- NOTE | 2025-01-21 06:50 | CT_ITS ---
EXAM: CT-guided right lung biopsy. CLINICAL HISTORY: Nodular mass in the medial right lung apex. COMPARISON: Prior CT scan of the chest dated January 07, 2025. TECHNIQUE: Radiation dose report: CTDI L volume: 14.5 mGy. DLP: 208.33. The patient is here for CT-guided core biopsy of the right apical mass. The procedure as well as the benefits and possible complications including bleeding, infection and pneumothorax were explained to the patient. Informed consent was obtained. The patient was in the prone position. Conscious sedation was performed. The patient received 2 mg of Versed and 50 mcg of fentanyl intravenously. Conscious sedation was started at 8:51 a.m. and terminated at 9:16 a.m.. The patient was independently monitored by the department nurse. The overlying skin was prepped and draped in the usual sterile fashion. Following local anesthetic application, a 20 gauge core biopsy needle system was placed into the mass in the medial apical aspect of the right upper lobe. 6 core biopsies of the mass were obtained. The pathologist deemed the specimen adequate. FINDINGS: Successful CT-guided core biopsy of the medial right apical mass as described. Conscious sedation was performed. No immediate complication noted. CT/Biopsy/Inj or Needle Placement IMPRESSION: Successful CT-guided core biopsy of the right apical pulmonary mass. Reading Location: [place] [id number]
--- NOTE | 2025-01-21 06:50 | CT_ITS ---
EXAM: CT-guided right lung biopsy. CLINICAL HISTORY: Nodular mass in the medial right lung apex. COMPARISON: Prior CT scan of the chest dated January 07, 2025. TECHNIQUE: Radiation dose report: CTDI L volume: 14.5 mGy. DLP: 208.33. The patient is here for CT-guided core biopsy of the right apical mass. The procedure as well as the benefits and possible complications including bleeding, infection and pneumothorax were explained to the patient. Informed consent was obtained. The patient was in the prone position. Conscious sedation was performed. The patient received 2 mg of Versed and 50 mcg of fentanyl intravenously. Conscious sedation was started at 8:51 a.m. and terminated at 9:16 a.m.. The patient was independently monitored by the department nurse. The overlying skin was prepped and draped in the usual sterile fashion. Following local anesthetic application, a 20 gauge core biopsy needle system was placed into the mass in the medial apical aspect of the right upper lobe. 6 core biopsies of the mass were obtained. The pathologist deemed the specimen adequate. FINDINGS: Successful CT-guided core biopsy of the medial right apical mass as described. Conscious sedation was performed. No immediate complication noted. CT/Biopsy/Inj or Needle Placement IMPRESSION: Successful CT-guided core biopsy of the right apical pulmonary mass. Reading Location: [place] [id number]
[2025-01-21] MEDS: 0.9% Saline Lock 10 ML Syringe IV (08:28)
[2025-01-21] MEDS: Midazolam 2 MG/2 ML Syringe IV (08:51)
[2025-01-21] MEDS: fentaNYL 100 MCG/2 ML Ampul IV (08:52)
[2025-01-21] MEDS: Lidocaine 2% (20 ml mdv) 20 ML Vial INFILT (09:04)
--- NOTE | 2025-01-21 09:30 | RAD_ITS ---
EXAM: Inspiration expiration views following a right lung biopsy. CLINICAL HISTORY: Status post immediate right lung biopsy. COMPARISON: None TECHNIQUE: AP inspiration expiration views were obtained. FINDINGS: EKG electrodes are seen. There is no evidence of pneumothorax on the immediate post right lung biopsy radiographs. Persistent mass in the medial aspect of the right lung apex. RAD/Chest Insp/Exp 2 View IMPRESSION: Status post right lung biopsy. No evidence of pneumothorax on the immediate po st right lung biopsy radiographs. [facility]
--- NOTE | 2025-01-21 09:30 | RAD_ITS ---
EXAM: Inspiration expiration views following a right lung biopsy. CLINICAL HISTORY: Status post immediate right lung biopsy. COMPARISON: None TECHNIQUE: AP inspiration expiration views were obtained. FINDINGS: EKG electrodes are seen. There is no evidence of pneumothorax on the immediate post right lung biopsy radiographs. Persistent mass in the medial aspect of the right lung apex. RAD/Chest Insp/Exp 2 View IMPRESSION: Status post right lung biopsy. No evidence of pneumothorax on the immediate po st right lung biopsy radiographs. [facility]
--- NOTE | 2025-01-21 11:14 | RAD_ITS ---
EXAM: Chest AP inspiration expiration views. CLINICAL HISTORY: 2 hour post right lung biopsy radiographs. COMPARISON: Prior study dated earlier in the day. TECHNIQUE: Inspiration expiration views were obtained at 2 hours following the right lung biopsy. FINDINGS: No evidence of right pneumothorax. Persistent mass in the apical medial aspect of the right lung. RAD/Chest Insp/Exp 2 View IMPRESSION: No evidence of pneumothorax on the 2 hour post right lung biopsy radiographs. The patient is asymptomatic. Reading Location: [place] [address]
--- NOTE | 2025-01-21 11:14 | RAD_ITS ---
EXAM: Chest AP inspiration expiration views. CLINICAL HISTORY: 2 hour post right lung biopsy radiographs. COMPARISON: Prior study dated earlier in the day. TECHNIQUE: Inspiration expiration views were obtained at 2 hours following the right lung biopsy. FINDINGS: No evidence of right pneumothorax. Persistent mass in the apical medial aspect of the right lung. RAD/Chest Insp/Exp 2 View IMPRESSION: No evidence of pneumothorax on the 2 hour post right lung biopsy radiographs. The patient is asymptomatic. Reading Location: [place] [id number]
--- OUTSIDE RECORDS SUMMARY | 2025-01-23 02:59 | XMS RPT_ITS | CCD ---
Demographics Address [address] [place] [address] Home Phone Mobile Phone Preferred Language en Marital Status Single Church Affiliation Unknown Race White Ethnic Group Not or Lati no Author Organization [facility] Care Team Providers Care Mushroom Grower Name Role Phone Arriaga ANCILLARY SPECIALIST, Virginie E Unavailable Unavailable Arriaga ANCILLARY SPECIALIST, Virginie E Unavailable Unavailable Unavailable Primary Care Provider Unavailabl e Edward Martinez MD Primary Care Provider Dr. Joann Live Primary Care Provider Dr. Joann Live Referring Provider Dr. Joann Live Other Provider Dr. Elinor Carrasco Attending Provider Edward Martinez MD Primary Care Provider Dr. Joann Live MD Primary Care Provider Shabnam Haynes Attending Provider Unavailable Dr. Joann Live MD Attending Provider Dr. Joann Live MD Referring Provider Dr. Justus Robertson MD Attending Provider Dr. Justus Robertson MD Other Provider Dr. Joann Live MD Primary Care Provider Wayne MAINTENANCE WELDER-C, Chayo Attending Provider Wayne MAINTENANCE WELDER-C Chayo Referring Provider Kristina MAINTENANCE WELDER-CNegin Attending Provider Dr. Joann Live MD Primary Care Provider Dr. Joann Live MD Referring Provider Kristina MAINTENANCE WELDER-C, Negin Referring Provider [facility] SEWING TRIMMER.FRAMING AND HANGING, Kandice Grullon Unavailable Kristina MAINTENANCE WELDER, Negin Attending Unavailable Acevedo MAINTENANCE WELDER, Negin Referring Unavailable Miedel, Joann Primary Care Unavailable Acevedo MAINTENANCE WELDER, Negin Attending Unavailable Acevedo MAINTENANCE WELDER, Negin Referring Unavailable Miedel, Joann Primary Care Unavailable Acevedo MAINTENANCE WELDER, Negin Attending Unavailable Acevedo MAINTENANCE WELDER, Negin Referring Unavailable Miedel, Joann Primary Care Unavailable Wayne MAINTENANCE WELDER, Chayo Attending Unavailable Wayne MAINTENANCE WELDER, Chayo Referring Unavailable Miedel, Joann Primary Care Unavailable Acevedo MAINTENANCE WELDER, Negin Referring Unavailable Acevedo MAINTENANCE WELDER, Negin Attending Unavailable Miedel, Joann Primary Care Unavailable Miedel, Joann Primary Care Unavailable Miedel, Joann Attending Unavailable Miedel, Joann Referring Unavailable Miedel, Joann Primary Care Unavailable Justus Robertson Attending Unavailable Miedel, Joann Referring Unavailable Miedel, Joann Primary Care Unavailable Justus Robertson Consulting Unavailable Justus Robertson Attending Unavailable Miedel, Joann Referring Unavailable Miedel, Joann Primary Care Unavailable Shabnam Haynes Attending Unavailable Wayne MAINTENANCE WELDER, Chayo Attending Unavailable Miedel, Joann Referring Unavailable Miedel, Joann Primary Care Unavailable Kristina MAINTENANCE WELDER, Negin Attending Unavailable Miedel, Joann Referring Unavailable Miedel, Joann Primary Care Unavailable Allergies Allergy Classification Reported Allergen(s) Allergy Type Date of Onset Reaction(s) Facility (10 sources) Sulfamethoxazole Drug Allergy 3 Nausea/Vom/[facility] (10 sources) Trimethoprim Drug Allergy 3 Nausea/Vom/[facility] (1 source) Sulfamethoxazole Drug Allergy 5 [facility] (1 source) Trimethoprim Drug Allergy 5 [facility] Medications Current Medications Medication Drug Class(es) Dates Sig (Normalized) Sig (Original) [id number] 200 actuat albuterol 0.09 mg/actuat metered dose inhaler (3 sources) beta2-Adrenergic Agonist Start: 01-08-2025 Albuterol Sulfate (Ventolin Hfa) 90 mcg/actuation HFA aerosol inhaler Active 2 NMA INHALATION Q4H as needed for shortness of breath or wheezing 18 January 08, 2025 12:00am Mass of upper lobe of right lung Other nonspecific abnormal finding of lung field B-Complex With Vitamin C (4 sources) Start: 01-08-2017 B-Complex With Vitamin C Active 1 EACH PO DAILY January 08, 2017 12:00am Start: 01-08-2017 B-Complex With Vitamin C Active 1 EACH PO DAILY January 07, 2017 11:00pm Collagen Peptide powder (4 sources) Start: 01-07-2025 Collagen Pepti de powder Active PO DAILY January 07, 2025 12:00am diclofenac sodium 0.01 mg/mg topical gel (6 sources) Nonsteroidal Anti-inflammatory Drug Start: 08-15-2024 apply 2 g topically four times daily as needed for pain Diclofenac Sodium 1 % gel Active 2 g TOPICAL .qid as needed for pain August 15, 2024 1:00am ibuprofen 200 mg oral tablet (18 sources) Nonsteroidal Anti-inflammatory Drug Start: 08-15-2024 take 1 tablet by mouth every six hours as needed for pain Ibuprofen 200 mg tablet Active 200 mg PO EVERY 6 HOURS as needed for pain August 15, 2024 1:00am take 1 tablet by kenia th every six hours as needed Ibuprofen 100 mg tablet Take 100 mg by mouth every 6 hours as needed. Active Comment on above: Take 100 mg by mouth every 6 hours as needed. Magnesium (9 sources) Start: 01-07-2025 take 1 tablet by mouth once daily Magnesium 250 mg tablet Active 250 mg PO daily January 07, 2025 12:00am Start: 10-17-2024 End: 01-07-2025 magnesium spray Discontinued AT BEDTIME October 17, 2024 12:00am January 07, 2025 12:39pm Start: 10-17-2024 magnesium spra y Active AT BEDTIME October 17, 2024 12:00am Magnesium Aspart,Citrate,Oxide 400 mg magnesium capsule (1 source) Start: 08-15-2024 take 1 capsule by mouth once daily Magnesium Aspart,Citrate,Oxide 400 mg magnesium capsule Active 400 mg PO daily August 15, 2024 1:00am methylPREDNISolone (1 source) Corticosteroid Start: 10-18-2022 End: 10-24-2022 methylPREDNISolone (MEDROL, ANGELA,) 4 mg Dose-Pack Follow dosing instructions, take with food. 21 tablet 0 10/18/2022 10/24/2022 Active Comment on above: Follow dosing instru ctions, take with food. Multivitamin (Daily Multiple Vitamin) 1 EACH tablet (10 sources) Start: 11-24-2015 take 1 tablet by mouth once daily Multivitamin (Daily Multiple Vitamin) 1 EACH tablet Active 1 NMA PO DAILY November 24, 2015 12:00am Start: 11-24-2015 take 1 tablet by kenia th once daily Multivitamin (Daily Multiple Vitamin) 1 EACH tablet Active 1 EACH PO DAILY November 24, 2015 12:00am Start: 11-24-2015 take 1 tablet by kenia th once daily Multivitamin (Daily Multiple Vitamin) 1 EACH tablet Active 1 EACH PO DAILY November 23, 2015 11:00pm multivitamin tablet (12 sources) take 1 tablet by kenia th once daily multivitamin tablet Take 1 tablet by mouth once daily. Active take 1 tablet by mouth once luis f y multivitamin tablet Take 1 tablet by mouth once daily. 0 Active Comment on above: Take 1 tablet by kenia th once daily. polyethylene glycol 3350 [id number] mg / potassium chloride 2980 mg / sodium bicarbonate 6720 mg / sodium chloride 5840 mg / sodium sulfate 48384 mg powder for oral solution (1 source) Osmotic Laxative Start: 11-15-2022 End: 11-15-2022 peg 3350-electrolytes (COLYTE) 240-22.72-6.72 -5.84 gram solution Indications: Special screening for malignant neoplasms, colon Take 4,000 mL by mouth one time only for 1 dose. 4000 mL 0 11/15/2022 11/15/2022 Active Comment on above: Take 4,000 mL by kenia th one time only for 1 dose. Turmeric extract (6 sources) Start: 08-15-2024 take 1 capsule by mouth once daily Turmeric 400 mg capsule Active 400 mg PO daily August 15, 2024 1:00am Completed/Discontinued Medications Medication Drug Class(es) Dates Sig (Normalized) Sig (Original) acetaminophen 325 mg / oxyCODONE hydrochloride 5 mg oral tablet (10 sources) Opioid Agonist Start: 07-08-2023 End: 08-15-2024 Oxycodone-Acetaminop hen 5-325 mg tablet Discontinued 1 {tbl} PO EVERY 6 HOURS NEEDED as needed for Pain 12 3 0 July 08, 2023 August 15, 2024 12:38pm Cervical radiculopathy Radiculopathy, cervical region Start: 07-08-2023 take 1 tablet by kenia th every six hours as needed Oxycodone-Acetaminophen Active 1 TABLET PO EVERY 6 HOURS NEEDED 12 3 July 08, 2023 Amox-Clav 875-125 mg Tablet (10 sources) Start: 07-04-2019 End: 08-15-2024 Amox-Clav 875-125 mg Tablet Discontinued 1 {tbl} PO TWICE A DAY July 04, 2019 1:00am August 15, 2024 12:35pm Start: 07-04-2019 take 1 tablet by kenia twice daily Amox-Clav 875-125 mg Tablet Active 1 TABLET PO TWICE A DAY July 04, 2019 1:00am Start: 07-04-2019 take 1 tablet by kenia twice daily Amox-Clav 875-125 mg Tablet Active 1 TABLET PO TWICE A DAY July 04, 2019 12:00am amoxicillin/potassium clav (AUGMENTIN ORAL) (1 source) amoxicillin/pota ssium clav (AUGMENTIN ORAL) Take 875 mg by mouth. 0 Active Comment on above: Take 875 mg by mouth . B-Complex With Vitamin C 1 EACH tablet (6 sources) Start : 01-08 End: 08-15 take 1 tablet by mouth once daily B-Complex With Vitamin C 1 EACH tablet Discontinued 1 NMA PO DAILY January 08, 2017 12:00am August 15, 2024 12:35pm benzonatate 100 mg oral capsule (1 source) Non-narcotic Antitussive Start : 05-03 take 1 capsule by mouth three times daily as needed for cough benzonatate (TESSALON PERLE) 100 mg capsule Indications: Viral URI with cough Take 1 capsule by mouth three times daily as needed for Cough. 30 capsule 0 05/03/2017 Active Comment on above: Take [address] [facility] three times daily as needed for Cough. cetirizine hydrochloride 10 mg oral tablet (13 sources) Histamine-1 Receptor Antagonist Start : 01-20 ZYRTEC ALLERGY 10 MG CAPS take as directed CETIRIZINE HCL [id number] Virginie Arriaga LPN Start: 11-21-2015 take [address] [facility] once daily Cetirizine (Zyrtec) 10 MG capsule Active 10 mg PO DAILY November 21, 2015 12:00am take 1 tablet by kenia once daily cetirizine (ZYRTEC) 5 mg tablet Take 5 mg by mouth once daily. 0 Active Comment on above: Take 5 mg by mouth o nce daily. cyclobenzaprine hydrochloride 10 mg oral tablet (10 sources) Muscle Relaxant Start: End: take 1 tablet by mouth three times daily as needed for muscle spasms Cyclobenzaprine 10 mg tablet Discontinued 10 mg PO THREE TIMES A DAY as needed for Muscle Spasm 15 July 08, 2023 1:00am August 15, 2024 12:37pm doxycycline hyclate 100 mg oral capsule (2 sources) Tetracycline-class Drug Start: DOXYCYCLINE HYCLATE 100 MG CAPS BID DOXYCYCLINE HYCLATE [id number] Virginie Arriaga LPN methocarbamol 500 mg oral tablet (2 sources) Muscle Relaxant Start: End: take 1 tablet by mouth every six hours as needed methocarbamol (ROBAXIN) 500 mg tablet Take 1 tablet by mouth every 6 hours as needed (Pain) for up to 3 days. 12 tablet 10/18/2022 10/21/2022 Comment on above: Take [address] [facility] every 6 hours as needed (Pain) for up to 3 days. MULTIPLE VITAMINS-MINERALS (2 sources) Start: DAILY MULTIVITAMIN CAPS take as directed MULTIPLE VITAMINS-MINERALS [id number] Virginie Arriaga LPN naproxen 500 mg oral tablet (10 sources) Nonsteroidal Anti-inflammatory Drug Start: End: take 1 tablet by mouth twice daily Naproxen 500 mg tablet Discontinued 500 mg PO TWICE A DAY 14 July 08, 2023 1:00am August 15, 2024 12:37pm predniSONE 20 mg oral tablet (20 sources) Start: End: take 2 tablets by mouth once daily Prednisone 20 mg tablet Discontinued 40 mg PO DAILY 10 July 08, 2023 1:00am August 15, 2024 12:38pm Start: 01-08-2017 take 40 mg by mouth once daily Prednisone Active 40 MG PO DAILY July 08, 2023 1:00am TRISTIAN'S WORT ORAL (1 source) TRISTIAN'S WORT ORAL Take by mouth. 0 Active Comment on above: Take by mouth. traZODone hydrochloride 50 mg oral tablet (4 sources) Serotonin Reuptake Inhibitor Start: 3 End: 3 take 1 tablet by mouth once daily in the evening traZODone (DESYREL) 50 mg tablet Take 1 tablet by mouth every evening. 30 tablet 0 10/27/2022 11/15/2022 Discontinued (Side Effects) Comment on above: Take 1 tablet by kenia th every evening. Problems Active Problems Problem Classification Problem Date Documented Da te Episodic/Chronic Cardiac dysrhythmias (1 source) Unspecified atrial fibrillation; Translations: [Unspecified atrial fibrillation] Onset: 01-11-2025 Chronic Headache; including migraine (6 sources) Morning headache; Translations: [Morning headache] 01-08-2025 Episodic Headache; including migraine (1 source) Headache; including migraine; Translations: [Headache, unspecified] Onset: 01-08-2025 Immunizations and screening for infectious disease (1 source) Patient encounter status; Translations: [Encounter for immunization] Episodic Nonmalignant breast conditions (10 sources) Abscess of breast; Translations: [Abscess of the breast and nipple] 07-05-2019 Episodic Other aftercare (10 sources) Wound finding; Translations: [Encounter for other specified aftercare] 10-30-2016 Episodic Other aftercare (10 sources) Admission statuses; Translations: [Encounter for other specified aftercare] 11-27-2015 Episodic Other connective tissue disease (10 sources) Spasm of cervical paraspinous muscle; Translations: [Other muscle spasm] 07-08-2023 Episodic Other lower respiratory disease (6 sources) Dyspnea; Translations: [Shortness of breath] 01-08-2025 Episodic Other lower respiratory disease (6 sources) Lung mass; Translations: [Other nonspecific abnormal finding of lung field] 01-08-2025 Episodic Comment on above: 4.5 x 3.5 x 2.9 cm R UL Other lower respiratory disease (6 sources) Hypoxia; Translations: [Hypoxemia] 01-08-2025 Episodic Other lower respiratory disease (2 sources) Hypoxemia; Translations: [Hypoxemia] Onset: 01-08-2025 Episodic Other lower respiratory disease (2 sources) Shortness of breath; Translations: [Shortness of breath] Onset: 01-08-2025 Episodic Other lower respiratory disease (2 sources) Other nonspecific abnormal finding of lung field; Translations: [Other nonspecific abnormal finding of lung field] Onset: 01-08-2025 Episodic Other lower respiratory disease (1 source) Dyspnea, unspecified; Translations: [Dyspnea, unspecified] Onset: 01-08-2025 Episodic Other screening for suspected conditions (not mental disorders or infectious disease) (20 sources) Mammography abnormal; Translations: [Other abnormal and inconclusive findings on diagnostic imaging of breast] Onset: 09-24-2024 Episodic Other skin disorders (1 source) Disorder of skin of lower limb; Translations: [Disorder of the skin and subcutaneous tissue, unspecified] Episodic Screening and history of mental health and substance abuse codes (9 sources) Tobacco use and exposure - finding; Translations: [Personal history of nicotine dependence] Onset: 01-08-2025 01-07-2025 Episodic Substance-related disorders (12 sources) Tobacco user; Translations: [Nicotine dependence, unspecified, uncomplicated] Onset: 12-31-2015 12-31-2015 Chronic Past or Other Problems Problem Classification Problem Date Documented Date Episodic/Chronic Alcohol-related disorders (10 sources) 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; Translations: [Alcohol use, unspecified with alcohol-induced sleep disorder] Onset: 10-27-2022 Episodic Noninfectious gastroenteritis (4 sources) Chronic diarrhea; Translations: [Noninfective gastroenteritis and colitis, unspecified] Onset: 06-23-2016 Resolved: 10-19-2022 06-23-2016 Episodic Other liver diseases (6 sources) Elevated liver enzymes level; Translations: [Abnormal levels of other serum enzymes] Onset: 11-15-2022 Episodic Other nervous system disorders (2 sources) Other disturbances of skin sensation; Translations: [Other disturbances of skin sensation] Onset: 01-20-2017 01-20-2017 Episodic Residual codes; unclassified (10 sources) Alcoholism; Translations: [Alcohol use disorder] Onset: 10-19-2022 10-19-2022 Episodic Residual codes; unclassified (1 source) Other specified conditions influencing health status; Translations: [Alcohol use disorder] Onset: 10-19-2022 10-19-2022 Episodic Spondylosis; intervertebral disc disorders; other back problems (20 sources) Acute back pain with sciatica; Translations: [Lumbago with sciatica, right side] Onset: 10-19-2022 Episodic Unclassified (2 sources) Contact with and (suspected) exposure to other hazardous, chiefly nonmedicinal, chemicals; Translations: [Contact with and (suspected) exposure to other hazardous, chiefly nonmedicinal, chemicals] Onset: 01-20-2017 01-20-2017 Episodic Unclassified (1 source) Patient encounter status 12-24-2024 Results Test Name Value Interpretation Reference Range Facility Activated partial thrombopla stin time (aPTT) in platelet poor plasma by coagulation aOrdered By: Negin Acevedo on 01-08-2025 aPTT Coag (PPP) [Time] 25.1 s 24.1-36.2 [facility] normalized rat io (INR) calculationOrdered By: Negin Acevedo on 01-08-2025 INR Coag (Bld) [Relative time] 0.9 {INR} [facility] Partial Thromboplast Timeon 01-08-2025 aPTT Coag (Bld) [Time] 25.1 s Normal 24.1-36.2 [facility] Comment on above: Performed By: #### L 300.4310, L100.1900, L300.3900 #### [facility] [address] [place], [address] Platelet Counton 01-08-2025 Platelets (Bld) [#/Vol] 284 10*3/uL Normal 150-450 [facility] Comment on above: Performed By: #### L 300.4310, L100.1900, L300.3900 #### [facility] [address] [place], [address] Platelet countOrdered By: Jose Acevedo on 01-08-2025 Platelets (Bld) [#/Vol] 284 10*3/uL 150-450 [facility] Prothrombin Time w/INRon INR Coag (PPP) [Relative time] 0.9 {INR} Normal [facility] Comment on above: Performed By: #### L 300.4310, L100.1900, L300.3900 #### [facility] [address] [place], [address] PT Coag (PPP) [Time] 12.0 s Normal 11.7-14.[address] [facility] Comment on above: Performed By: #### L 300.4310, L100.1900, L300.3900 #### [facility] [address] [place], [address] Prothrombin timeOrdered By: Negin Acevedo on 01-08-2025 PT Coag (PPP) [Time] 12.0 s 11.7-14.[address] [facility] Pulmonary Visit Reporton Pulmonary Visit Report [facility] [place] [address] [place] [address] OFFICE VISIT Date of Service: 01/08/25 MR#: [id number] Acct: [id number] Name: ROSARIO WYATT DANIEL Rep #: [id number] : 1975 Provider: VADIM Acevedo Age/Sex: 49/F Location: [facility] Status: Signed with Addenda ADDENDUM by Alda Perrin on 01/08/25 at 1411 Office Procedure Documentation entered by Alda Perrin LPN 01/08/25 14:11: [facility] Procedure performed by: Alda Perrin Date cc: VADIM Black; Dr. Joann Live MD * Signed Assessment and Plan Assessment and Plan (1) Mass of upper lobe of right lung: Status: Acute Comment: 4.5 x 3.5 x 2.9 cm RUL Plan: This patient just completed her first LDCT. There were 2 concerning areas noted, one of them is greater than 3 cm on average, located in the right upper lobe. Given her history of smoking, this is highly concerning for malignancy. Sending her for a CT-guided biopsy. This case was evaluated and discussed with Dr. Brodie Low. Plan to return to the office to discuss test results once available. Obtaining lab work to ensure that the patient is not had increased bleeding risk, she is not currently on any anticoagulation. (2) Shortness of breath: Status: Acute Plan: This has been occurring on exertion. Likely related to COPD given the amount of smoking history. Plan for a PFT to be completed as soon as possible, preferably before the CT-guided biopsy. I did provide her with an albuterol rescue inhaler to use for shortness of breath until PFT is available for review. I instructed her not to use the albuterol for 24 to 48 hours prior to the PFT to ensure reliable test results. She will likely require a maintenance inhaler once we are able to review the results of the pulmonary function test. Also performing a 6-minute walk test to evaluate for exertional hypoxia. If supplemental oxygen is indicated on ambulation it will be ordered accordingly. Return to the office in approximately 3 weeks to discuss test results. The patient reports that she has a family history of COPD, could be related to smoking but also could be genetic. Performing alpha-1 genetic screening in the office today. Test results will be discussed at the next office visit. (3) Morning headache: Status: Acute Plan: Could be related to hypoxia. The patient is agreeable to nocturnal oximetry for evaluation. If hypoxemia occurs for 5 minutes or greater of the test supplemental oxygen will be ordered to be worn with sleep. The patient is agreeable with this plan. (4) Hypoxia: Status: Acute Plan: Evaluating for exertional hypoxia as well as nocturnal hypoxia. Supplemental oxygen will be ordered accordingly if indicated. Orders: Orders Biopsy/Inj or Needle Placement Today R91.8 - Other nonspecific abnormal finding of lung field Partial Thromboplast Time Today I48.91 - Unspecified atrial fibrillation, R91.8 - Other nonspecific abnormal finding of lung field Platelet Count Today R06.00 - Dyspnea, unspecified, R91.8 - Other nonspecific abnormal finding of lung field Prothrombin Time w/INR Today I48.91 - Unspecified atrial fibrillation, R91.8 - Other nonspecific abnormal finding of lung field PFT Complete - DLCO, Spirometry b/a bronchodilators, lung volumes 01/21/25 R91.8 - Other nonspecific abnormal finding of lung field Alpha One Screening Test Today R91.8 - Other nonspecific abnormal finding of lung field OutPt Pulse Ox/Cont Overnight Today R09.02 - Hypoxemia Simple Pulmonary Exercise Test Today R06.02 - Shortness of breath Medications: New albuterol sulfate 90 mcg/actuation (Ventolin HFA) 2 inhalations inhalation Q4H PRN 18 grams 11RF shortness of breath or wheezing R91.8 - Other nonspecific abnormal finding of lung field Plan Details Additional Comments: This note was generated with [employer] dictation software. It may contain incorrect words, spelling, and punctuation that were not noted in checking the note before signing. Follow Up: 3 Weeks HPI LDCT- CC Patient Chief Complaint: test results HPI Comments Details: This patient presents to the office today for initial consultation regarding abnormal CT of the chest. She is ambulatory and currently on room air. She has not recently been seen in the ED or urgent care for any respiratory illness. She has not required any antibiotics or prednisone for any breathing problems. She has a 24-eeaw-ddhu smoking history quitting completely January 2024. She smoked a minimum of a pack a day, often times a pack and half a day and admits that sometimes 2 packs/day. She is not currently on any maintenance inhalers. She has never performed a pulmonary function test. She states that back in 2013 doctor prescribed her (more content not included)... Normal [facility] Low Dose CT Lung Screeningon 01-07-[address] Lung Screening [facility] [address] [place], [place] [address] Low Dose CT Lung Screening MR#: [id number] Acct: [id number] Name: ROSARIO WYATT Rep #: [id number] : 1975 F 49 From: Queta Velez PCP: Dr. Joann Live MD Status: [facility] Study: Low Dose CT Lung Screening Date of Exam: 01/07 Exam# [id number] Ordering Dr: Chayo Black NP MAINTENANCE WELDER -C PROCEDURE: LOW DOSE CT LUNG SCREENING 01/07/2025 REASON FOR EXAM: LUNG CANCER SCREENING TECHNIQUE: LOW DOSE CT LUNG SCREENING Coronal and Sagittal reconstruction series were provided. One or more dose reduction techniques were used (e.g., Automated exposure control, adjustment of the mA and/or kV according to patient size, use of iterative reconstruction technique). REFERENCE LINK: [facility] Lung-RADS RADIATION DOSE SUMMARY: DLP: 59 mGycm COMPARISON: None FINDINGS: LUNGS AND PLEURA: 4.5 x 3.9 x 2.9 cm mass is noted within the right apex with spiculated borders (series 2, iamge 62) concerning for neoplastic process. A smaller pulmonary lesion measuring 1.4 x 1.2 x 1.5 cm within the right anna ( series 2, image 89). Scattered biapical pneumatoceles. Mild pulmonary emphysema. No pleural effusion or pneumothorax. MEDIASTINUM: Prominent mediastinal lymph nodes. The heart shows no acute findings. Mild atherosclerosis of the thoracic aorta. The pulmonary trunk and branches of the vessels in the mediastinum are within normal limits. SUPRACLAVICULAR AND AXILLARY: No abnormalities seen in these regions. No mass or significant lymphadenopathy. UPPER ABDOMEN: The visualized upper abdomen is unremarkable. BONES AND SOFT TISSUES: The bony structures show no significant acute findings. No focal bony mass lesions noted. The subcutaneous soft tissues are unremarkable. CT/Low Dose CT Lung Screening IMPRESSION: 4.5 x 3.9 x 2.9 cm mass is noted within the right apex with spiculated borders concerning for neoplastic process. A smaller pulmonary lesion measuring 1.4 x 1.2 x 1.5 cm within the right anna. Reading Location: [id number] CC: VADIM Black; Dr. Joann Live MD Supervisor Intelligence Analyst: Signed [facility] Oncology Visit Reporton 12-16 Oncology Visit Report [facility] [place] [address] OFFICE VISIT Date of Service: 01/07/25 1234 MR#: [id number] Acct: [id number] Name: EDMUNDOROSARIO Rep #: [id number] : 1975 From: Chayo Black NP MAINTENANCE WELDER RobynC Age/Sex: 49/F Location: [facility] Status: Signed HPI HPI Reviewed eligibility criteria: 49 year old F with a 36-54 pack year smoking history (1-1.5 ppd x 36 years, starting smoking routinely at age 11). Smoking Status: Former smoker (quit January 2024 ) Decision Making Engaged in shared decision making visit utilizing a visual aid. Discussed the risks and benefits of lung cancer screening including the total radiation exposure, false positive rate, over diagnosis and potential need for follow-up diagnostic testing all associated with low-dose chest CT. Comorbidities none ROS Const Denies anorexia, Denies fatigue, Denies headache(s), Denies poor appetite and Denies weight loss ENT Denies headache(s) Card Denies chest pain, Reports dyspnea on exertion and Denies palpitations Resp Denies cough, Reports dyspnea on exertion, Denies hemoptysis and Denies wheezing GI Reports system reviewed and no additional complaints, except as documented Musc Reports system reviewed and no additional complaints, except as documented Skin/Breast Reports system reviewed and no additional complaints, except as documented Neuro Yes system reviewed and no additional complaints, except as documented and No headache(s) Psych Reports system reviewed and no additional complaints, except as documented Endo Reports system reviewed and no additional complaints, except as documented, Denies fatigue and Denies palpitations Mickey/Lymph Reports system reviewed and no additional complaints, except as documented Aller/Immun Denies wheezing Exam Const General: healthy appearing, well developed and not in acute distress Orientation: alert, awake and oriented x3 HENMT Head: normocephalic and atraumatic Neck Neck: trachea midline, supple and no lymphadenopathy noted Resp Effort Inspection: normal respiratory effort and symmetric chest movement Auscultation: Bilateral: Clear to Auscultation Cardio Rate: regular rate Rhythm: regular rhythm Heart Sounds: S1 normal, S2 normal and no murmurs Psych Affect: normal affect Attitude: cooperative Results Results January 07, [address] Lung Screening IMPRESSION: 4.5 x 3.9 x 2.9 cm mass is noted within the right apex with spiculated borders concerning for neoplastic process. A smaller pulmonary lesion measuring 1.4 x 1.2 x 1.5 cm within the right anna. Intake Vital Signs 10/22/24 07:31 01/07/25 12:40 Height 5 ft 6 in 5 ft 6 in Weight: 152 lb BMI 24.5 BP 112/76 Blood Pressure Location Rt brachial Position Sitting Respiration 18 Pulse 86 Pulse Source Monitor Temp 98.6 F Temp Source Temporal Pulse Oximetry (%) 96 Oxygen Delivery Method room air Intake Visit Reasons: Lung cancer screening Is patient in pain?: No Allergies sulfamethoxazole (From Bactrim) Adverse Reaction (Verified 01/07/25 12:38) Nausea/Vom/Diarrhea trimethoprim (From Bactrim) Adverse Reaction (Verified 01/07/25 12:38) Nausea/Vom/Diarrhea Medications ???Medication ???Instructions ???Recorded ???Confirmed ???Type cetirizine 10 mg capsule (Zyrtec) 10 mg PO DAILY 11/21/15 01/07/25 History multivitamin (Daily Multiple 1 ea PO DAILY 11/24/15 01/07/25 Hi story tablet) diclofenac sodium 1 % topical gel 2 g topical .qid PRN pain 5 01/07/25 History ibuprofen 200 mg tablet 200 mg PO Q6H PRN pain 08/15/24 History turmeric 400 mg capsule 400 mg PO QDAY 08/15/24 01/07/25 H istory Collagen Peptide powder PO DAILY 01/07/25 History magnesium 250 mg tablet 250 mg PO QDAY 01/07/25 01/07/25 H istory PFSH Medical History (Updated 01/07/25 @ 12:51 by Chayo Black MAINTENANCE WELDER, MAINTENANCE WELDER-C) History of tobacco use Encounter for screening for malignant neoplasm of lung Wears glasses Wears dentures Alcohol use Arthritis Injury of back Injury of head and neck Restless legs PONV (postoperative nausea and vomiting) Smoker Shortness of breath on exertion Leg cramps History of atrial fibrillation Lumbar disc herniation Surgical History History of tubal ligation History of lumpectomy of right breast History of surgery History of abdominal hysterectomy Social History household members: none current occupational status: employed Smoking Status: Former smoker (quit January 2024 ) Assessment and Plan (No Qualifiers) Assessment and Plan (1) Encounter for screening for malignant neoplasm of lung: Status: Acute Plan: 4.5 cm spi (more content not included)... [facility] Colonoscopy Reporton 025 Colonoscopy Report [facility] Medical Records Department [address] [place] [address] Colonoscopy Report MR#: [id number] Acct: [id number] Name: ROSARIO WYATT Rep #: [id number] : 1975 48 From: Justus Robertson MD PCP: Dr. Joann Live MD Status:[facility] Patient Name: Rosario Wyatt Procedure Date: 10/22/2024 8:46 AM Date of : 1975 Age: 48 Procedure: Colonoscopy Indications: Screening for colorectal malignant neoplasm Providers: Justus Robertson MD Referring MD: Joann Live Medicines: Monitored Anesthesia Care Patient Profile: Refer to note in patient chart for documentation of history and physical. Last Colonoscopy: none. The patient's first colonoscopy is today. Complications: No immediate complications. Estimated blood loss: None. Procedure: Pre-Anesthesia Assessment: - Prior to the procedure, a History and Physical was performed, and patient medications and allergies were reviewed. The patient's tolerance of previous anesthesia was also reviewed. The risks and benefits of the procedure and the sedation options and risks were discussed with the patient. All questions were answered, and informed consent was obtained. Prior Anticoagulants: The patient has taken no anticoagulant or antiplatelet agents. ASA Grade Assessment: II - A patient with mild systemic disease. After reviewing the risks and benefits, the patient was deemed in satisfactory condition to undergo the procedure. After I obtained informed consent, the scope was passed under direct vision. Throughout the procedure, the patient's blood pressure, pulse, and oxygen saturations were monitored continuously. The adult colonoscope was introduced through the anus and advanced to the cecum, identified by the appendiceal orifice, IC valve and transillumination. The ileocecal valve, appendiceal orifice, and rectum were photographed. The entire colon was well visualized. The colonoscopy was performed without difficulty. The patient tolerated the procedure well. The quality of the bowel preparation was adequate. Moderate Sedation: See the other procedure note for documentation of moderate sedation with intraservice time. Scope In: 8:57:10 AM Scope Withdrawal Time 0 hours 9 minutes 34 seconds Scope Out: 9:15:51 AM Total Procedure Duration Time 0 hours 18 minutes 41 seconds Findings: The perianal and digital rectal examinations were normal. Multiple small and large-mouthed diverticula were found in the entire colon. Internal hemorrhoids were found during retroflexion. The hemorrhoids were small. The exam was otherwise without abnormality on direct and retroflexion views. Impression: - Diverticulosis in the entire examined colon. - Internal hemorrhoids. - The examination was otherwise normal on direct and retroflexion views. - No specimens collected. Recommendation: - Discharge patient to home. - High fiber diet. - Repeat colonoscopy in 10 years for screening purposes. - Return to my office PRN. - Continue present medications. Procedure Code(s): --- Professional --- 17704, Colonoscopy, flexible; diagnostic, including collection of specimen(s) by brushing or washing, when performed (separate procedure) Diagnosis Code(s): --- Professional --- Z12.11, Encounter for screening for malignant neoplasm of colon K57.30, Diverticulosis of large intestine without perforation or abscess without bleeding K64.8, Other hemorrhoids CPT copyright 2021 [employer]. All rights reserved. The codes documented in this report are preliminary and upon exhaust emissions inspector review may be revised to meet current compliance requirements. Justus Robertson MD 10/22/2024 9:23:43 AM This report has been signed electronically. Number of Addenda: 0 Note Initiated On: 10/22/2024 8:46 AM 10/22/24 0924 Date Justus Robertson MD Cosigner Signature: Date (if indicated) CC: Dr. Joann Live MD; Dr. Justus Robertson MD Date Dictated: 10/22/24 0846 Date Transcribed: Supervisor Intelligence Analyst: ERWIN Signed [facility] MR/POSTOP.Nile 10-22-2024 MR/POSTOP.ANE [facility] Medical Records Department [address] [place] [address] Anesthesia Postop Eval I 10/22/24 0923 MR#: [id number] Acct: [id number] Name: ROSARIO WYATT Rep #: [id number] : 1975 48 From: Dean Marshall PCP: Dr. Joann Live MD Status:[facility] Y Race: C Location: [place] [address] Anesthesia: Postop Eval I Current Vital Signs Temperature: 97.2 F Pulse Rate: 76 Blood Pressure: 86/72 Respiratory Rate: 16 Pulse Ox: 96 Oxygen Delivery Method: Room Air Assessment Airway patent: Yes Spontaneous unlabored respirations: Yes Mental status: Awake and Calm nausea: No Vomiting: No Anesthesia Complication: No Fluid Hydration Crystalloid volume administer (ml): 40 Total IV fluid infused: 40 Progress Note Anesthesia document: Postop Eval 1 completed: Yes 10/22/24 09 Date Dean Shipley Signature: Date CC: Signed [facility] [id number] 10-22-2024 /POST[address] Medical Records Department [address] [place] [address] Anesthesia Postop Eval II 10/22/24 1229 MR#: [id number] Acct: [id number] Name: JOSE E WYATTRA SANCHEZ Rep #: [id number] : 1975 48 From: Wolfgang Roberts MD PCP: Dr. Joann Live MD Status:[facility] Y Race: C Location: EN Anesthesia Postop Eval I Sum Postop Eval Completion status Anesthesia document: Postop Eval 1 completed: Yes Anesthesia Postop Eval I Summary Anesthesia Postop Eval I Summary: Anesthesia Postop Eval I: Assessment Summary Airway patent Yes 10/22/24 09:24 [email or web address] Spontaneous unlabored Yes 10/22/24 09:24 [email or web address] respirations Mental status Awake,Calm 10/22/24 09:24 [email or web address] nausea No 10/22/24 09:24 [email or web address] Vomiting No 10/22/24 09:24 [email or web address] Anesthesia Postop Eval I: Fluid Summary Crystalloid volume administer 40 10/22/24 09:24 [email or web address] (ml) Colloids volume administered ( ml) Blood Product volume administered (ml) Total IV fluid infused 40 10/22/24 09:24 [email or web address] Anesthesia Postop Eval I: Summary Notes Anesthesia Complication No 10/22/24 09:24 [email or web address] Anesthesia Complication Comment: Post-operative progress note Anesthesia: Postop Eval II Evaluation Mental status: Awake and Calm Pain Level: 0 nausea: No Vomiting: No Complications Anesthesia Complication: No 10/22/24 1230 Date Wolfgang Roberts MD Cosigner Signature: Date CC: Signed [facility] Breast imaging reportOrdered By: Valeria Mccord on 09-10-2024 Study report [facility] Imaging Services [address] [place] [address] [id number] SCRN MAMM (CAD)W/SANJUANA BILAT MR#: [id number] Acct: [id number] Name: ROSRAIO WYATT Rep #: [id number] : 1975 F 48 From: Hodan Mccord MD PCP: Dr. Joann Live MD Status: REG CLI Study:SCRN MAMM (CAD)W/SANJUANA BILAT Date of Exa m: 09/10/24 Exam# [id number] Ordering Dr: Endy Live MD PROCEDURE: SCRN MAMM (CAD)W/SANJUANA BILAT REASON FOR EXAM: F, Age 48 y/o, presents for annual screening mammogram. Family history of breast cancer in her paternal grandmother. TECHNIQUE: Bilateral screening digital breast tomosynthesis with 2D and 3D images. Computeraided detection. COMPARISON: 08/28/2023, 12/06/2022, 10/25/2022 FINDINGS: There are scattered areas of fibroglandular density. No suspicious masses, areas of developing architectural distortion, or suspicious calcifications. BI/SCRN MAMM (CAD)W/SANJUANA BILAT IMPRESSION: There is no mammographic evidence of malignancy in either breast. BI-RADS 1: NEGATIVE. RECOMMEND ANNUAL MAMMOGRAPHIC SCREENING. Follow-up code: Routine Follow-up The patient will be notified of the results by letter. Reading Location: [facility] CC: Dr. Joann Live MD ~ Supervisor Intelligence Analyst: Signed [facility] SCRN MAMM (CAD)W/SANJUANA BILATo n 09-10-2024 SCRN MAMM (CAD)W/SANJUANA BILAT [facility] Imaging Services [address] [place] [address] [id number] SCRN MAMM (CAD)W/SANJUANA BILAT MR#: [id number] Acct: [id number] Name: ROSARIO WYATT Rep #: [id number] : 1975 F 48 From: Valeria Mccord MD PCP: Dr. Joann Live MD Status: [facility] CLI Study: SCRN MAMM (CAD)W/SANJUANA BILAT Date of Exam: 08/18 12/08 Exam# [id number] Ordering Dr: Joann Live MD PROCEDURE: SCRN MAMM (CAD)W/SANJUANA BILAT REASON FOR EXAM: F, Age 48 y/o, presents for annual screening mammogram. Family history of breast cancer in her paternal grandmother. TECHNIQUE: Bilateral screening digital breast tomosynthesis with 2D and 3D images. Computer aided detection. COMPARISON: 08/28/2023, 12/06/2022, 10/25/2022 FINDINGS: There are scattered areas of fibroglandular density. No suspicious masses, areas of developing architectural distortion, or suspicious calcifications. BI/SCRN MAMM (CAD)W/SANJUANA BILAT IMPRESSION: There is no mammographic evidence of malignancy in either breast. BI-RADS 1: NEGATIVE. RECOMMEND ANNUAL MAMMOGRAPHIC SCREENING. Follow-up code: Routine Follow-up The patient will be notified of the results by letter. Reading Location: [facility] CC: Dr. Joann Live MD Supervisor Intelligence Analyst: Signed [facility] Absolute lymphocyte countOrd ered By: Joann Live on 08-08-2023 Lymphocytes Auto (Unsp spec) [#/Vol] 2.96 10*3/uL 0.83-4.51 [facility] Automated lymphocyte count a s percentage of total leukocytesOrdered By: Joann Live on 08-08-2023 Lymphocytes/100 WBC Auto (Unsp spec) 39.3 % 19-41 [facility] Basophil percentageOrdered B y: Joann Live on 08-08-2023 Basophils/100 WBC (Bld) 0.4 % 0-1 [facility] Bilirubin [Mass/Vol] 0.30 mg/dL 0.20-1.[address] [facility] Comment on above: For patients on eltr ombopag therapy, use of Dimension [place] TBIL is not recommended. Chloride [Moles/Vol] 110 mmol/L 98-[address] [facility] Eosinophils/100 WBC (Bld) 1.3 % 0-5 [facility] Glucose [Mass/Vol] 92 mg/dL 74-106 [facility] Hemoglobin (Bld) [Mass/Vol] 13.3 g/dL 12.0-15.0 [facility] Monocytes/100 WBC (Bld) 5.8 % 0-10 [facility] Neutrophils (Bld) [#/Vol] 4.0 10*3/uL 2.0-7.7 [facility] Neutrophils/100 WBC (Bld) 52.9 % 47-70 [facility] Potassium [Moles/Vol] 3.7 mmol/L 3.5-5.1 [facility] Protein [Mass/Vol] 7.7 g/dL 6.4-8.2 [facility] Sodium [Moles/Vol] 143 mmol/L 136-145 [facility] WBC (Bld) [#/Vol] 7.5 10*3/uL 4.4-11.0 [facility] Determination of erythrocyte mean corpuscular volume (MCV)Ordered By: Joann Live on 08-08-2023 MCV (RBC) [Entitic vol] 94.8 fL 81-99 [facility] Erythrocyte distribution wid th ratioOrdered By: [facility] on 08-08-2023 Erythrocyte distribution width (RBC) [Ratio] 13.2 % 11.6-14.6 [facility] Erythrocyte distribution wid th standard deviationOrdered By: [place] Maria T on 08-08-2023 Erythrocyte distribution width (RBC) [Entitic vol] 45.8 fL 35.1-43.9 [facility] Hematocrit Auto (Bld) [Volum e fraction]Ordered By: Joann Live on 08-08-2023 Hematocrit (Bld) [Volume fraction] 41.7 % 37-47 [facility] Immature granulocytes/100 WB C Auto (Bld)Ordered By: Joann Maria T on 08-08-2023 Immature granulocytes/100 WBC (Bld) 0.300 % 0.0-0.9 [facility] Comment on above: IG% - Immature Granu locytes (promyelocytes, myelocytes and metamyelocytes) > 1% indicates that a LEFT SHIFT is Present. Laboratory - Chemistry and C hemistry - challengeOrdered By: Joann Live on 08-08-2023 Albumin/Globulin [Mass ratio] 1.3 {ratio} 0.9-2.4 [facility] ALP [Catalytic activity/Vol] 84 U/L 45-117 [facility] ALT [Catalytic activity/Vol] 31 U/L 13-56 [facility] CO2 [Moles/Vol] 29.0 mmol/L 21.0-32.0 [facility] Globulin (S) [Mass/Vol] 3.4 g/dL 2.2-4.2 [facility] Urea nitrogen/Creatinine [Mass ratio] 27.1 mg/mg 10-20 [facility] Laboratory - Hematology and Cell countsOrdered By: Joann Live on 08-08-2023 MCH (RBC) [Entitic mass] 30.2 pg 27.0-32.0 [facility] MCHC (RBC) [Mass/Vol] 31.9 g/dL 32-36 [facility] Nucleated RBC/100 WBC (Bld) [Ratio] 0 % 0-5 [facility] Platelets (Bld) [#/Vol] 267 10*3/uL 150-450 [facility] No Panel InformationOrdered By: Joann Live on 08-08-2023 Estimated GFR (MDRD) Amer 140 mL/min >60 [facility] Comment on above: GFR Calc Estimated GFR (MDRD) Non-Af Amer 115 mL/min >60 [facility] Comment on above: Non- GFR Calc Platelet mean volume Aneudy-Ec ker (Bld) [Entitic vol]Ordered By: Joann Live on 08-08-2023 Platelet mean volume (Bld) [Entitic vol] 10.6 fL 6.2-12.0 [facility] RBC Auto (Bld) [#/Vol]Ordere d By: Joann Live on 08-08-2023 RBC (Bld) [#/Vol] 4.40 10*6/uL 4.2-5.4 [facility] Serum or plasma calcium radha urement (mass/volume)Ordered By: Joann Live on 08-08-2023 Calcium [Mass/Vol] 9.4 mg/dL 8.5-10.1 [facility] Serum or plasma creatinine m easurement (mass/volume)Ordered By: Joann Live on 08-08-2023 Creatinine [Mass/Vol] 0.59 mg/dL 0.55-1.02 [facility] Comment on above: The validity of the calculated GFR & GFRAA in patients over 70 years has not been determined. Clinical correlation is essential. Serum or plasma thyroid stim ulating hormone (TSH) measurement (units/volume)Ordered By: Joann Live on 08-08-2023 TSH Qn 1.15 uIU/mL 0.358-3.74 [facility] Serum or plasma urea nitroge n measurement (mass/volume)Ordered By: Joann Live on 08-08-2023 Urea nitrogen [Mass/Vol] 16 mg/dL 7-18 [facility] Thin prep Papanicolaou smear with manual screeningOrdered By: Joann Live on 08-08-2023 Thin prep Papanicolaou smear with manual screening 4.3 g/dL 3.2-5.0 [facility] Thin prep Papanicolaou smear with manual screening 17 U/L 15-37 [facility] Thin prep Papanicolaou smear with manual screening 4 5-15 [facility] HERMILA DIAG W SANJUANA BILATERALon 12-06-2022 [facility] No Panel Informationon 12-06 [facility] HERMILA SCREENINGon 10-25-2022 [facility] XR Lumbar spine 3 Viewson IMPRESSION: Lumbar spine degenerative changes with L5-S1 disc space narrowing. Supervisor Intelligence Analyst: JEANNIE Transcribe Date/Time: Oct 20 2022 2:11P Dictated by : JEANA YU MD This examination was interpreted and the report reviewed and electronically signed by: JEANA YU MD on Oct 20 2022 2:15PM [facility] DIVISION OF RADIOLOGY * * *Final Report* * * DATE OF EXAM: Oct 19 2022 5:47PM WOX [id number] - XR LUMBAR 3V AP/LAT/L5-S1 / PROCEDURE REASON: Acute bilateral low back pain with right-sided sciatica * * * * Physician Interpretation * * * * EXAM TITLE: XR LUMBAR 3V AP/LAT/L5-S1 EXAM DATE/TIME: 10/19/2022 5:47 PM COMPARISON: None. CLINICAL INDICATION/HISTORY: Low back pain. TECHNIQUE: AP, lateral and cone down lateral views of the lumbar spine are presented. FINDINGS: There are five lgo-sks-hljvgjn lumbar vertebrae. No fracture or subluxations are noted. L5-S1 disc space narrowing is demonstrated, with endplate sclerosis. There is mild osteophyte formation. DIVISION OF RADIOLOGY Provider, [facility] - 10/20/2022 * * *Final Report* * * DATE OF EXAM: Apr 5 2023 5:47PM WOX [id number] - XR LUMBAR 3V AP/LAT/L5-S1 / PROCEDURE REASON: Acute bilateral low back pain with right-sided sciatica * * * * Physician Interpretation * * * * EXAM TITLE: XR LUMBAR 3V AP/LAT/L5-S1 EXAM DATE/TIME: 10/19/2022 5:47 PM COMPARISON: None. CLINICAL INDICATION/HISTORY: Low back pain. TECHNIQUE: AP, lateral and cone down lateral views of the lumbar spine are presented. FINDINGS: There are five naf-ulm-agessel lumbar vertebrae. No fracture or subluxations are noted. L5-S1 disc space narrowing is demonstrated, with endplate sclerosis. There is mild osteophyte formation. IMPRESSION IMPRESSION: Lumbar spine degenerative changes with L5-S1 disc space narrowing. Supervisor Intelligence Analyst: PSCB Transcribe Date/Time: Oct 20 2022 2:11P Dictated by : JEANA YU MD This examination was interpreted and the report reviewed and electronically signed by: JEANA YU MD on Oct 20 2022 2:15PM EST [facility] XR Lumbar spine 3 ViewsOrder ed By: [facility] Provider on 10-20-2022 [facility] XR Lumbar spine 3 Viewson Radiology Study observation (narrative) [facility] PROGRESSon 02-10-2020 PROGRESS HNO ID: [id number] Author: Sherry Loco) Areli Service: ? Author Type: Nurse Practitioner Type: Progress Notes Filed: 02/10/2020 11:32 AM Note Text: AMBULATORY TELEPHONE VISIT Rosario Wyatt has consented to this telephone encounter. Persons Present: patient Chief Complaint/Reason: Breast abscess since Jun 2019. HPI: pt state she has had draining and swelling over last 6 months , but now the swelling is worsening In right breast. Treated With Augmentin in Jun for 3 months per patient . Assessment: No diagnosis found. Breast Infection Plan: Pt needs evaluation in person for breast exam and possible culture of drainage. Total Time Spent: 7 min Sherry Singleton APRN.ESPERANZA [facility] Office Visit: [facility]:on 017 Documentation of current medications (procedure) Done Invalid Interpretation Code [facility] Work Phone: Fall risk assessment No Invalid Interpretation Code [facility] Work Phone: Vital Signs Date Time Vital Sign Value Performing Clinician Faci lity 01-08-2025 08:00-0400 Body height 167.[address] Joann Live MD Work Phone: [facility] 01-08-2025 08:00-0400 Body mass index (BMI) [Ratio] 24.5 kg/m2 Dr. Joann Live MD Work Phone: [facility] 01-08-2025 08:00-0400 Body temperature 97.4 [degF] Dr. Joann Live MD Work Phone: [facility] 01-08-2025 08:00-0400 Body weight 68.[address] Joann Live MD Work Phone: [facility] 01-08-2025 08:00-0400 Diastolic blood pressure 85 mm[Hg] Dr. Joann Live MD Work Phone: [facility] 01-08-2025 08:00-0400 Heart rate 68 /min Dr. Joann Live MD Work Phone: [facility] 01-08-2025 08:00-0400 Respiratory rate 18 /min Dr. Joann Live MD Work Phone: [facility] 01-08-2025 08:00-0400 SaO2% (BldA) [Mass fraction] 96 % Dr. Joann Live MD Work Phone: [facility] 01-08-2025 08:00-0400 Systolic blood pressure 127 mm[Hg] Dr. Joann Live MD Work Phone: [facility] 01-07-2025 12:40-0400 Body height 167.[address] Joann Live MD Work Phone: [facility] 01-07-2025 12:40-0400 Body mass index (BMI) [Ratio] 24.5 kg/m2 Dr. Joann Live MD Work Phone: [facility] 01-07-2025 12:40-0400 Body temperature 98.6 [degF] Dr. Joann Live MD Work Phone: [facility] 01-07-2025 12:40-0400 Body weight 68.[address] Joann Live MD Work Phone: [facility] 01-07-2025 12:40-0400 Diastolic blood pressure 76 mm[Hg] Dr. Joann Live MD Work Phone: [facility] 01-07-2025 12:40-0400 Heart rate 86 /min Dr. Joann Live MD Work Phone: [facility] 01-07-2025 12:40-0400 Respiratory rate 18 /min Dr. Joann Live MD Work Phone: [facility] 01-07-2025 12:40-0400 SaO2% (BldA) [Mass fraction] 96 % Dr. Joann Live MD Work Phone: [facility] 01-07-2025 12:40-0400 Systolic blood pressure 112 mm[Hg] Dr. Joann Live MD Work Phone: [facility] 10-22-2024 09:35-0400 Diastolic blood pressure 69 mm[Hg] Dr. Joann Live MD Work Phone: [facility] 10-22-2024 09:35-0400 Systolic blood pressure 98 mm[Hg] Dr. Joann Live MD Work Phone: [facility] 10-22-2024 09:30-0400 Body temperature 96.9 [degF] Dr. Joann Live MD Work Phone: [facility] 10-22-2024 09:30-0400 Heart rate 74 /min Dr. Joann Live MD Work Phone: [facility] 10-22-2024 09:30-0400 Respiratory rate 16 /min Dr. Joann Live MD Work Phone: [facility] 10-22-2024 09:30-0400 SaO2% (BldA) [Mass fraction] 96 % Dr. Joann Live MD Work Phone: [facility] 10-22-2024 07:31-0400 Body height 167.[address] Joann Live MD Work Phone: [facility] 10-22-2024 07:31-0400 Body mass index (BMI) [Ratio] 23.8 kg/m2 Dr. Joann Live MD Work Phone: [facility] 10-22-2024 07:31-0400 Body weight [address] Joann Live MD Work Phone: [facility] 08-15-2024 11:47-0500 Body height 167.[address] Joann Live MD Work Phone: [facility] 08-15-2024 11:47-0500 Body mass index (BMI) [Ratio] 24.2 kg/m2 Dr. Joann Live MD Work Phone: [facility] 08-15-2024 11:47-0500 Body weight 68.[address] Joann Live MD Work Phone: [facility] 07-08-2023 09:15-0500 Diastolic blood pressure 79 mm[Hg] [facility] 07-08-2023 09:15-0500 Heart rate 92 /min [facility] 07-08-2023 09:15-0500 Respiratory rate 16 /min [facility] 07-08-2023 09:15-0500 SaO2% (BldA) [Mass fraction] 100 % [facility] 07-08-2023 09:15-0500 Systolic blood pressure 108 mm[Hg] [facility] 07-08-2023 07:40-0500 Body height 167.64 cm [facility] 07-08-2023 07:40-0500 Body mass index (BMI) [Ratio] 23.3 kg/m2 [facility] 07-08-2023 07:40-0500 Body temperature 97.3 [degF] [facility] 07-08-2023 07:40-0500 Body weight 65.45 kg [facility] 11-15-2022 09:06-0400 Body weight 67.13 kg Kandice Older [employer] Work Phone: [facility] 11-15-2022 09:06-0400 Diastolic blood pressure 76 mm[Hg] Kandice Older [employer] Work Phone: [facility] 11-15-2022 09:06-0400 Heart rate 86 /min Kandice Older [employer] Work Phone: [facility] 11-15-2022 09:06-0400 Respiratory rate 14 /min Kandice Older [employer] Work Phone: [facility] 11-15-2022 09:06-0400 Systolic blood pressure 112 mm[Hg] Kandice Older [employer] Work Phone: [facility] 10-18-2022 07:19-0400 Body temperature 97.5 [degF] Krislyn Aberegg PA Work Phone: [facility] 10-18-2022 07:19-0400 Body weight 68.13 kg Krislyn Aberegg PA Work Phone: [facility] 10-18-2022 07:19-0400 Diastolic blood pressure 78 mm[Hg] Krislyn Aberegg PA Work Phone: [facility] 10-18-2022 07:19-0400 Heart rate 83 /min Krislyn Aberegg PA Work Phone: [facility] 10-18-2022 07:19-0400 Respiratory rate 16 /min Krislyn Aberegg PA Work Phone: [facility] 10-18-2022 07:19-0400 SaO2% (BldA) [Mass fraction] 99 % Kan MACIEL Work Phone: [facility] 10-18-2022 07:19-0400 Systolic blood pressure 122 mm[Hg] Kan MACIEL Work Phone: [facility] 01-20-2017 09:01-0400 BMI (Body Mass Index) 23.5 kg/m2 [facility] Work Phone: 01-20-2017 09:01-0400 Body Temperature 98.6 [degF] Virginie Arriaga [facility] Work Phone: 01-20-2017 09:01-0400 BP Diastolic 80 mm[Hg] [facility] Work Phone: 01-20-2017 09:01-0400 BP Systolic 140 mm[Hg] Virginie Arriaga [facility] Work Phone: 01-20-2017 09:01-0400 Height 167.64 cm Virginie Arriaga ANCILLARY SPECIALIST [facility] Work Phone: 01-20-2017 09:01-0400 Pulse (Heart Rate) 83 /min Virginie Arriaga [facility] Work Phone: 01-20-2017 09:01-0400 Respiratory Rate 16 /min Virginie Arriaga [facility] Work Phone: 01-20-2017 09:01-0400 Weight 66.04 kg [facility] Work Phone: Encounters Encounter Date Encounter Type Care Provider Facility Start: 01-24-2025 ambulatory Negin Acevedo MAINTENANCE WELDER Fac ility:[facility] Start: 01-23-2025 ambulatory Negin Acevedo MAINTENANCE WELDER Fac ility:[facility] Start: 01-21-2025 ambulatory Negin Acevedo MAINTENANCE WELDER Fac ility:[facility] Start: 01-08-2025 End: 01-08-[address] Joann Live MD Work Phone: [facility] Start: 01-08-2025 End: 01-08-2025 Patient encounter procedure Negin Acevedo MAINTENANCE WELDER-C -[facility] Start: 01-08-2025 End: 01-08-2025 Patient encounter procedure Negin Acevedo MAINTENANCE WELDER-C -[facility] Work Phone: Start: 01-08-2025 End: 01-08-[address] Joann Live MD Work Phone: [facility] Work Phone: Start: 01-07-2025 End: 01-07-2025 Patient encounter procedure Chayo Black MAINTENANCE WELDER-C -[facility] Work Phone: Start: 01-07-2025 End: 01-08-[address] Joann Live MD Work Phone: [facility] Work Phone: Start: 01-07-2025 End: 01-07-2025 ambulatory Chayo Black MAINTENANCE WELDER Facility:[facility] Start: 12-17-2024 End: 01-17-2025 ambulatory Edward Martinez MD Work Phone: Internal Medicine [place] Start: 10-22-2024 ambulatory Joann Live [facility]: [facility] Start: 10-22-2024 Non-patient / Non-visit Dr. Justus Robertson MD -[facility] Start: 10-22-2024 End: 10-22-2024 Admission to same day surgery center Dr. Justus Robertson MD -Endoscopy Work Phone: Start: 10-22-2024 End: 10-22-[address] Joann Live MD Work Phone: [facility] Work Phone: Start: 09-10-2024 End: 09-10-[address] Joann Live MD Work Phone: [facility] Work Phone: Start: 09-10-2024 End: 09-10-[address] Joann Live MD -Outpatient Breast Imaging Work Phone: Start: 09-10-2024 End: 09-10-2024 ambulatory [facility] Facility:[facility] Start: 08-15-2024 Non-patient / Non-visit Dr. Jose Live MD Work Phone: -[facility] Work Phone: Start: 08-15-2024 ambulatory [facility] Facility: [facility] Start: 01-17-2024 ambulatory Edward sánchez MD Work Phone: Internal Medicine [place] [id number] Start: 09-20-2023 Non-patient / Non-visit Dr. Jose Live Work Phone: [facility] Start: 09-20-2023 End: 09-20-[address] Joann Live Work Phone: [facility] Work Phone: Start: 09-20-2023 End: 09-20-[address] Joann Live Work Phone: [facility]-Pulmonary Services/Neurology Work Phone: Start: 08-28-2023 End: 08-28-2023 ambulatory [facility] Work Phone: Start: 08-28-2023 End: 08-28-2023 Patient encounter procedure [facility] Work Phone: Start: 08-08-2023 End: 08-08-2023 ambulatory [facility] Work Phone: Start: 08-08-2023 End: 08-08-2023 Patient encounter procedure [facility]-Christelle Saeed [facility] Start: 07-08-2023 End: 07-08-2023 Emergency department patient visit [facility]-Emergency Department Work Phone: Start: 12-06-2022 End: 12-06-2022 Subsequent hospital visit by physician Us [facility] Work Phone: Radiology Comment on above: Abnormal screening m ammogram [R92.8] Start: 11-15-2022 End: 11-15-2022 Patient encounter procedure Kandice Mario [employer] Work Phone: [facility] [place] Comment on above: Skin lesion of left leg (Primary Dx); Acute back pain with sciatica, right; Elevated liver enzymes; Special screening for malignant neoplasms, colon; Encounter for immunization Start: 11-08-2022 End: 11-08-2022 ambulatory Ton Golias PT [facility] Comment on above: Acute back pain with sciatica, right (Primary Dx) Start: 10-31-2022 Telephone encounter Edward gutierrez MD Work Phone: [facility] [place] Comment on above: mammogram orders/US Start: 10-27-2022 Telephone encounter Edward gutierrez MD Work Phone: [facility] Comment on above: Medication Request Start: 10-26-2022 Documentation procedure Mammog ana Coordinator [facility] Start: 10-26-2022 Letter encounter Mammography Coordinator [facility] Department Start: 10-25-2022 End: 10-25-2022 Subsequent hospital visit by physician Screen Mammo [facility] Comment on above: Screening mammogram for breast cancer [Z12.31] Start: 10-19-2022 End: 10-19-2022 Subsequent hospital visit by physician Xr [facility] Work Phone: Radiology Comment on above: Acute bilateral low back pain with right-sided sciatica [M54.41] Start: 10-18-2022 End: 10-18-2022 Patient encounter procedure Kan MACIEL Work Phone: [facility] Comment on above: Acute midline low ba ck pain with right-sided sciatica (Primary Dx) Procedures Date Procedure Procedure Detail Performing Clinician Start: 01-07-[address] Joann Live MD Work Phone: Start: 10-22-[address] Joann Live MD Work Phone: Start: 09-10-2024 Screening mammography Rosie Live MD Work Phone: Start: 08-28-2023 Ultrasonography of breast Start: 08-28-2023 Mammography Start: 08-08-2023 Urine culture Start: 07-08-2023 Radiography of thora cic spine Start: 07-08-2023 X-ray of cervical spine Start: 12-06-2022 Us breast uni real t berenice with image limited Kandice Older [employer] Work Phone: Start: 12-06-2022 Digital breast tomos ynthesis bilateral Kandice Older [employer] Work Phone: Start: 10-25-2022 Lipid 1996 panel - S maxine or Plasma Us 1 Work Phone: Start: 10-25-2022 End: 10-25-2022 Mammography Edward Velez Work Phone: Start: 10-19-2022 Radex spine lumbosac ral 2/3 views Edward Martinez MD Work Phone: Start: 07-31-2019 Mammography Kan egan PA Work Phone: Plan of Treatment Date Care Activity Detail Author Start: 11-15-2032 Urine microalbumin profile [facility] Start: 10-26-2027 Lipid 1996 panel - S maxine or Plasma Lipid Screening [facility] Start: 10-26-2027 Lipid panel Lipid Screening [facility] Start: 10-26-2027 LIPID SCREEN LIPID SCREEN [facility] Start: 10-25-2025 DIABETES SCREEN [facility] Start: 10-25-2025 Diabetes Screening Diabetes Screenin g [facility] Start: 03-17-2025 Influenza vaccination Influenz a Vaccine (Season Ended) [facility] Start: 01-24-2025 Continuous pulse oximetry [facility] Start: 01-23-2025 Walking distance 6 minutes [facility] Start: 01-21-2025 Measurement of respiratory function [facility] Start: 2024 Shingrix Vaccine (1 of 2) Shingrix Vaccine (1 of 2) [facility] Start: 10-22-2024 Colonoscopy flx dx w/collj spec when pfrmd DIAGNOSTIC COLONOSCOPY [facility] Start: 10-22-2024 Patient discharge [facility] Start: 03-17-2024 Covid-19 Vaccine () Covid-19 Vaccine () [facility] Start: 03-17-2024 Influenza vaccination Influenza Vacc ine (#1) [facility] Start: 12-07-2023 Mammography Mammogram Screening [facility] Start: 12-07-2023 Screening for malign ant neoplasm of breast Mammogram Screening [facility] Start: 10-26-2023 Mammography MAMMOGRAM [facility] Start: 10-20-2023 COVID-19 VACCINE (3 - Booster for Pfizer series) COVID-19 VACCINE (3 - Booster for Pfizer series) [facility] Comment on above: Postponed from 01/16 (Declined at this time) Start: 07-17-2023 Behavioral Health Screening Behavioral Health Screening [facility] Start: 07-08-2023 [facility] Start: 07-08-2023 Radiography of thora cic spine Thoracic Spine 3 Views [facility] Start: 07-08-2023 X-ray of cervical spine Cerv Spine 2 or 3 Views [facility] Start: 07-08-2023 XR Cervical spine 2 or 3 Views [facility] Start: 07-08-2023 XR Thoracic spine 3 Views [facility] Start: 05-18-2023 End: 07-18-2023 Comprehensive metabolic 2000 panel - Serum or Plasma COMP METABOLIC PANEL Lab Routine Elevated liver enzymes Expected: 05/18/2023 (Approximate), Expires: 07/18/2023 [facility] Work Phone: Comment on above: Expected: 05/18/2023 (Approximate), Expires: 07/18/2023 Start: 03-17-2023 Covid-19 Vaccine () Covid-19 Vaccine () [facility] Start: 03-17-2023 Influenza vaccination C [facility] Start: 07-17-2022 DEPRESSION ASSESSMENT DEPRESSION ASS ESSMENT [facility] Start: 01-29-2021 LIPID SCREEN LIPID SCREEN [facility] Start: 01-16-2021 COVID-19 VACCINE (3 - Booster for Pfizer series) COVID-19 VACCINE (3 - Booster for Pfizer series) [facility] Start: 07-31-2020 Mammography MAMMOGRAM [facility] Start: 11-27-2019 COLOGUARD (FIT-DNA) COLOGUARD (FIT-D NA) [facility] Start: 11-27-2019 Colonoscopy COLONOSCOPY [facility] Start: 11-27-2019 COLORECTAL CANCER SCREENING COLORECTAL CANCER SCREENING [facility] Start: 11-27-[address] COLONOGRAPHY [facility] Start: 11-27-2019 DIABETES SCREEN DIABETES SCREEN [facility] Start: 11-27-2019 FECAL OCCULT BLOOD FECAL OCCULT BLOO D [facility] Start: 11-27-2019 Screening for malign ant neoplasm of colon [facility] Start: 11-27-2019 SIGMOIDOSCOPY SIGMOIDOSCOPY [facility] Start: 01-20-2017 End: 01-20-2017 Appointment Appointment [facility] Work Phone: Start: 12-30-2016 PNEUMOCOCCAL (2 - PCV) PNEUMOCOCCAL (2 - PCV) [facility] Start: 1993 Hepatitis B Vaccine (1 of 3 - 19+ 3-dose series) Hepatitis B Vaccine (1 of 3 - 19+ 3-dose series) [facility] Start: 1993 Urine microalbumin profile DTAP,TDAP,TD (1 - Tdap) [facility] Start: 1992 Anxiety Screening Anxiety Screening [facility] Start: 1992 Depression Screening Depression Scre ening [facility] Start: 1992 HEPATITIS C SCREENING HEPATITIS C SC REENING [facility] Start: 1992 HIV SCREENING HIV SCREENING [facility] Start: 1974 HEPATITIS B (1 of 3 - 3-dose series) HEPATITIS B (1 of 3 - 3-dose series) [facility] Start: 1974 Hepatitis B Vaccine (1 of 3 - 3-dose series) Hepatitis B Vaccine (1 of 3 - 3-dose series) [facility] [id number] measurement [facility] Colonoscopy [facility] Continuous pulse oximetry [facility] CT Chest [facility] End: 02-15-2025 DBT Breast - bilateral screening HERMILA SCREENING W [facility] Radiology Routine Encounter for screening mammogram for breast cancer 1 Occurrences starting 01/17/2024 until 02/15/2025 [facility] Work Phone: Comment on above: 1 Occurrences starti ng 01/17/2024 until 02/15/2025 End: 01-16-2026 DBT Breast - bilateral screening HERMILA SCREENING W [facility] Radiology Routine Encounter for screening mammogram for breast cancer 1 Occurrences starting 12/17/2024 until 01/16/2026 [facility] Work Phone: Comment on above: 1 Occurrences starti ng 12/17/2024 until 01/16/2026 End: 11-30-2023 HERMILA DIAGNOSTIC BILATERAL HERMILA DIAGNOSTIC BILATERAL Radiology Routine Abnormal screening mammogram 1 Occurrences starting 10/31/2022 until 11/30/2023 [facility] Work Phone: Comment on above: 1 Occurrences starti ng 10/31/2022 until 11/30/2023 Partial thromboplast in time, activated [facility] Patient Education Cervical Radic ulopathy ED Neck Spasm, No Trauma [facility] Work Phone: Patient referral [facility] Work Phone: Platelets [#/volume] in Blood [facility] Prothrombin time [facility] End: 11-16-2023 Screening colonoscopy COLONOSCOPY SCREENING Endoscopy Routine Special screening for malignant neoplasms, colon 1 Occurrences starting 11/15/2022 until 11/16/2023 [facility] Work Phone: Comment on above: 1 Occurrences starti ng 11/15/2022 until 11/16/2023 End: 11-30-2023 US BREAST LTD LEFT US BREAST LTD LEFT Radiology Routine Abnormal screening mammogram 1 Occurrences starting 10/31/2022 until 11/30/2023 [facility] Work Phone: Comment on above: 1 Occurrences starti ng 10/31/2022 until 11/30/2023 End: 11-30-2023 US BREAST LTD RIGHT US BREAST LTD RIGHT Radiology Routine Abnormal screening mammogram 1 Occurrences starting 10/31/2022 until 11/30/2023 [facility] Work Phone: Comment on above: 1 Occurrences starti ng 10/31/2022 until 11/30/2023 Walking distance 6 minutes [facility] Work Phone: [facility] Immunizations Immunization Date Immunization Notes Care Provider Jamil acevedo 11-15-2022 pneumococcal (PCV20) vaccine, 20 valent (PREVNAR 20) Kandice Older [employer] Work Phone: [facility] 11-15-2022 tetanus toxoid, redu juan diphtheria toxoid, and acellular pertussis vaccine, adsorbed Kandice Older [employer] Work Phone: [facility] 11-15-2022 pneumococcal Conjuga te, unspecified formulation Kandice Older [employer] Work Phone: [facility] Work Phone: 11-21-2020 COVID-19 original vaccine, age 12+ yr, monovalent (PFIZER-BIONTECH - PURPLE TOP) Kandice Older [employer] Work Phone: [facility] 10-31-2020 COVID-19 original vaccine, age 12+ yr, monovalent (PFIZER-BIONTECH - PURPLE TOP) Kandice Older [employer] Work Phone: [facility] 06-23-2016 influenza, injectabl e, quadrivalent, contains preservative Kan MACIEL Work Phone: [facility] 06-23-2016 influenza virus vacc ine, unspecified formulation [facility] Work Phone: [facility] 12-31-2015 pneumococcal polysaccharide vaccine, 23 valent Kan MACIEL Work Phone: [facility] Payers Date Payer Category Payer Self-pay 2024 Unknown [id number] 2022 Private Health Insurance [facility] [id number] 2022 Unknown [id number] 2016 Unknown [facility] [id number] 2015 Unknown [employer] [id number] Self-pay SEL[employer] PAY INSURANCE [id number] Unknown [id number] Unknown [id number] Unknown [id number] Unknown [id number] Unknown [id number] Unknown [id number] Unknown [id number] Unknown [id number] Unknown [id number] Unknown [id number] Unknown [id number] Unknown [id number] Social History Date Type Detail Facility Start: 07-17-1987 End: 10-17-2024 Tobacco smoking status NHIS Smokes tobacco daily [facility] Start: 07-17-1987 History of tobacco use Cigarette Smo ker [facility] Start: 10-18-2022 End: 11-28-2022 Cigarettes smoked current (pack per day) - Reported 1 [facility] Start: 10-18-2022 Tobacco use and exposure Smoke less tobacco non-user [facility] Start: 10-18-2022 Alcohol intake Current drinke r of alcohol (finding) [facility] Start: 10-18-2022 History SDOH Alcohol Frequency 5 [facility] Start: 10-18-2022 History SDOH Alcohol Std Drinks 2 [facility] Start: 10-18-2022 History SDOH Alcohol Binge 1 [facility] Start: 10-18-2022 History SDOH Physica l Activity DPW 7 [facility] Start: 10-18-2022 History SDOH Stress 3 [facility] Start: 01-27-2016 Alcohol Comment before bed [facility] Start: 1975 Sex Assigned At Not on file C [facility] Start: 10-19-2022 End: 11-15-2022 Alcohol intake Ex-drinker (finding) [facility] Start: 10-18-2022 End: 11-28-2022 Social connection and isolation panel [facility] Do you belong to any clubs or organizations such as spiritism groups, unions, fraternal or athletic groups, or school groups? No [facility] Are you now , , , , never or living with a partner? [facility] How often to you hav e a drink containing alcohol? 4 or more times a week [facility] How many standard dr inks containing alcohol do you have on a typical day? 3 or 4 [facility] How often do you hav e 6 or more drinks on 1 occasion? Never [facility] How hard is it for y ou to pay for the very basics like food, housing, medical care, and heating Somewhat hard [facility] Adult Depression Screening Assessment 0 [facility] Work Phone: Do you feel stress - tense, restless, nervous, or anxious, or unable to sleep at night because your mind is troubled all the time - these days [OSQ] To some extent [facility] (I/We) worried mark er (my/our) food would run out before (I/we) got money to buy more. Sometimes true [facility] The food that (I/we) bought just didn't last, and (I/we) didn't have money to get more. Never true [facility] Start: 07-08-2023 End: 07-08-2023 Tobacco smoking status NHIS Unknown if ever smoked [facility] Start: 1975 Sex Assigned At Female [facility] Start: 09-24-2024 End: 10-22-2024 Sex Female (finding) [facility] Start: 10-22-2024 [facility] Start: 01-07-2025 Tobacco smoking stat us NHIS Ex-smoker (finding) [facility] NEGATED: Highlighted row Not [facility] Goals Date Patient Goal Desired Activity /State Mental Status Date Assessment Result Facility 10-22-2024 Cognitive function Voice/Name [facility] Work Phone: Clinical Notes 06-23-2016 to 01-08-2025 Note Date & Type Note Facility 01-08-2025 Progress note [facility] 01-08-2025 Progress note Note Date/Time January 08, 2025 1:45pm [facility] Pulmonary Medicine of [address] [place] [address] OFFICE VISIT Date of Service: 01/08/25 MR#: [id number] Acct: [id number] Name: ROSARIO WYATT Rep #: [id number] : 1975 Provider: VADIM Acevedo Age/Sex: 49/F Location: [facility]PM[facility] Status: Signed Assessment and Plan Assessment and Plan (1) Mass of upper lobe of right lung: Status: Acute Comment: 4.5 x 3.5 x 2.9 cm RUL Plan: This patient just completed her first LDCT. There were 2 concerning areas noted, one of them is greater than 3 cm on average, located in the right upper lobe. Given her history of smoking, this is highly concerning for malignancy. Sending her for a CT-guided biopsy. This case was evaluated and discussed with Dr. Brodie Low. Plan to return to the office to discuss test results once available. Obtaining lab work to ensure that the patient is not had increased bleeding risk, she is not currently on any anticoagulation. (2) Shortness of breath: Status: Acute Plan: This has been occurring on exertion. Likely related to COPD given the amount ofsmoking history. Plan for a PFT to be completed as soon as possible, preferablybefore the CT-guided biopsy. I did provide her with an albuterol rescue inhaler to use for shortness of breath until PFT is available for review. I instructed her not to use the albuterol for 24 to 48 hours prior to the PFT to ensure reliable test results. She will likely require a maintenance inhaler once we are able to review the results of the pulmonary function test. Also performing a 6-minute walk test to evaluate for exertional hypoxia. If supplemental oxygenis indicated on ambulation it will be ordered accordingly. Return to the officein approximately 3 weeks to discuss test results. The patient reports that she has a family history of COPD, could be related to smoking but also could be genetic. Performing alpha-1 genetic screening in the office today. Test results will be discussed at the next office visit. (3) Morning headache: Status: Acute Plan: Could be related to hypoxia. The patient is agreeable to nocturnal oximetry forevaluation. If hypoxemia occurs for 5 minutes or greater of the test supplemental oxygen will be ordered to be worn with sleep. The patient is agreeable with this plan. (4) Hypoxia: Status: Acute Plan: Evaluating for exertional hypoxia as well as nocturnal hypoxia. Supplemental oxygen will be ordered accordingly if indicated. Orders: Orders Biopsy/Inj or Needle Placement Today R91.8 - Other nonspecific abnormal findingof lung field Partial Thromboplast Time Today I48.91 - Unspecified atrial fibrillation, R91.8- Other nonspecific abnormal finding of lung field Platelet Count Today R06.00 - Dyspnea, unspecified, R91.8 - Other nonspecific abnormal finding of lung field Prothrombin Time w/INR Today I48.91 - Unspecified atrial fibrillation, R91.8 - Other nonspecific abnormal finding of lung field PFT Complete - DLCO, Spirometry b/a bronchodilators, lung volumes 01/21/25 R91.8 - Other nonspecific abnormal finding of lung field Alpha One Screening Test Today R91.8 - Other nonspecific abnormal finding of lung field OutPt Pulse Ox/Cont Overnight Today R09.02 - Hypoxemia Simple Pulmonary Exercise Test Today R06.02 - Shortness of breath Medications: New albuterol sulfate 90 mcg/actuation (Ventolin HFA) 2 inhalations inhalation Q4H PRN 18 grams 11RF shortness of breath or wheezing R91.8 - Other nonspecific abnormal finding of lung field Plan Details Additional Comments: This note was generated with [employer] dictation software. It may contain incorrectwords, spelling, and punctuation that were not noted in checking the note beforesigning. Follow Up: 3 Weeks HPI LDCT- CC Patient Chief Complaint: test results HPI Comments Details: This patient presents to the office today for initial consultation regarding abnormal CT of the chest. She is ambulatory and currently on room air. She has not recently been seen in the ED or urgent care for any respiratory illness. She has not required any antibiotics or prednisone for any breathing problems. She has a [id number] smoking history quitting completely January 2024. She smoked a minimum of a pack a day, often times a pack and half a day and admits that sometimes 2 packs/day. She is not currently on any maintenance inhalers. She has never performed a pulmonary function test. She states that back in 2013doctor prescribed her albuterol. She does not currently utilize any inhalers. 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 The patient reports that she has a strong family history of COPD and even lung cancer. She states that her grandmother had both COPD and lung cancer that onlyrequired pneumonectomy. She also has an uncle on her mother side that had lung cancer and unfortunately succumbed to the disease. She has 3 children, 2 of them are smokers. She does have shortness of breath on exertion. She becomes short of breath whenwalking up a flight of steps. She has occasional wheezing. She also reports anoccasional cough that is nonproductive. She denies any palpitations. She denies any chest pain but does have some right upper quadrant pain at times. She states this was thoroughly evaluated by [facility] without any diagnosis. She denies any fever, chills or body aches. The patient does report that over the past year she has been awakened with a headache several times. 2 times it was severe and rated a 9 out of 10. The pain was so uncomfortable that it caused her to be nauseous and even vomit. Several other times she was awakened with mild headache in the morning. Test results personally viewed with the patient: Low-dose CT lung screening completed on January 07, 2025. Findings are consistent with a 4.5 x 3.5 x 2.9 cm mass in the right apex with spiculated borders concerning for neoplastic process. There is a smaller pulmonary lesion measuring 1.4 x 1.2 x 1.5 cm in the right anna. Scattered biapical pneumatoceles. Mild pulmonary emphysema Intake Vital Signs 01/07/25 12:40 01/08/25 08:00 Height 5 ft 6 in 5 ft 6 in Weight: 152 lb BMI 24.5 BP 127/85 H Blood Pressure Location Lt brachial Position Sitting Respiration 18 Pulse 68 Pulse Source Monitor Temp 97.4 F L Temperature Source Temporal Artery Pulse Oximetry (%) 96 Oxygen Delivery Method room air Intake Visit Reasons: LDCT- CC Patient Hospital Cook Required: No DME Vendor: N/a Accompanied by: Self Is patient in pain?: No Allergies sulfamethoxazole (From Bactrim) Adverse Reaction (Verified 01/08/25 12:54) Nausea/Vom/Diarrhea trimethoprim (From Bactrim) Adverse Reaction (Verified 01/08/25 12:54) Nausea/Vom/Diarrhea Medications ?Medication ?Instructions ?Recorded ?Confirmed ?Type cetirizine 10 mg capsule (Zyrtec) 10 mg PO DAILY 11/2001/08/25 History multivitamin (Daily Multiple 1 ea PO DAILY 11/24/15 History tablet) diclofenac sodium 1 % topical gel 2 g topical .qid PRN pain 08/15/24 01/08/25 History ibuprofen 200 mg tablet 200 mg PO Q6H PRN pain 08/1501/08/25 History turmeric 400 mg capsule 400 mg PO QDAY 08/15/2412/16 History Collagen Peptide powder PO DAILY 01/07/25 01/08/25 H istory magnesium 250 mg tablet 250 mg PO QDAY 01/07/2512/16 History albuterol sulfate 90 mcg/actuation 2 inh inhalation Q4 H PRN shortness 01/08/25 01/08/25 Rx aerosol inhaler (Ventolin HFA) of breath or wheezing # 18 grams Have you fallen in the past year?: No PFSH Medical History History of tobacco use Encounter for screening for malignant neoplasm of lung Wears glasses Wears dentures Alcohol use Arthritis Injury of back Injury of head and neck Restless legs PONV (postoperative nausea and vomiting) Smoker Shortness of breath on exertion Leg cramps History of atrial fibrillation Lumbar disc herniation Surgical History History of tubal ligation History of lumpectomy of right breast History of surgery History of abdominal hysterectomy Social History household members: none current occupational status: employed Smoking Status: Former smoker (quit January 2024 ) Review of Systems Resp Respiratory: Yes as per HPI Exam Const Constitutional: Positive conversant, cooperative, in no acute respiratory distress, healthy appearing, well developed, well nourished and good hygiene Head Head: Yes normocephalic, Yes atraumatic and No cyanosis of lips/distal nose Eyes Eye: Positive clear conjunctiva; Negative nystagmus or scleral abnormality Ears Ear: Positive hearing normal and external ears normal Nose Nose: Yes external nose normal Mouth Mouth: Positive oral mucosae normal and good dentition Neck Neck: Positive normal visual inspection, full ROM and trachea midline Chest Wall Chest: Positive normal inspection of the chest and symmetric chest movement Resp lung sounds: Positive clear to auscultation, diminished lung sounds, normal expiratory time and normal respiratory effort; Negative wheezes, rhonchi, rales or use of accessory muscles Cardio Cardiac: Positive regular rate, regular rhythm, S1 normal and S2 normal; Negative murmur GI GI: Positive normal to inspection; Negative distended Genitourinary: Positive deferred Musc Musculoskeletal: Positive steady gait and ROM normal; Negative kyphosis or scoliosis Skin Pulmonary Skin Exam: Positive intact; Negative lesion, rash or ulcers Extremities Extremities: No clubbing and No cyanosis Neuro Neurologic: Yes no focal neuro deficits, Yes conversant, Yes cooperative, Yes normal cognition, Yes normal coordination, Yes normal concentration and Yes understands questions Psych Appearance: Positive grossly normal, eye contact and well kempt Mental Status: Positive mental status grossly normal Mood: Positive congruent mood Affect: Positive normal affect Coding Level of Care Code Off vis,new,level 5 Diagnoses Mass of upper lobe of right lung R91.8 Shortness of breath R06.02 Morning headache R51.9 Hypoxia R09.02 Clinical Quality Measures Falls Risk Screening/Assistive Devices Have you fallen in the past year?: No 01/08/25 1345 <Electronically signed by Negin moreno NP MAINTENANCE WELDER-C> Date _ Negin Acevedo NP MAINTENANCE WELDER-C Cosigner Signature: Date (if applicable) CC: MAINTENANCE WELDER-C Chayo Black; Dr. Joann Live MD ~ [employer] Work Phone: 1(401) 382-668306-24-2025 Radiology Diagnostic study note [facility] Imaging Services [address] [place], [place] [id number] Low Dose [address] Lung Screening MR#: [id number] Acct: [id number] Name: EDMUNDOROSARIO Rep #: [id number] : 1975 F 49 From: Ruby Martin MD PCP: Dr. Joann Live MD Status: REG CLI Study:Low Dose CT Lung Screening Date of Exam : 01/07/25 Exam# [id number] Ordering Dr: Chayo Marquez NP, NP-C PROCEDURE: LOW DOSE CT LUNG SCREENING 01/07/2025 REASON FOR EXAM: LUNG CANCER SCREENING TECHNIQUE: LOW DOSE CT LUNG SCREENING Coronal and Sagittal reconstruction series were provided. One or more dose reduction techniques were used (e.g., Automated exposure control, adjustment of the mA and/or kV according to patient size, use of iterative reconstruction technique). REFERENCE LINK: [facility] Lung-RADS RADIATION DOSE SUMMARY: DLP: 59 mGycm COMPARISON: None FINDINGS: LUNGS AND PLEURA: 4.5 x 3.9 x 2.9 cm mass is noted within the right apex with spiculated borders (series 2, iamge 62)concerning for neoplastic process. A smaller pulmonary lesion measuring 1.4 x 1.2 x 1.5 cm within the right anna ( series 2, image 89). Scattered biapical pneumatoceles. Mild pulmonary emphysema. No pleural effusion or pneumothorax. MEDIASTINUM: Prominent mediastinal lymph nodes. The heart shows no acute findings. Mild atherosclerosis of the thoracic aorta. The pulmonary trunk and branches ofthe vessels in the mediastinum are within normal limits. SUPRACLAVICULAR AND AXILLARY: No abnormalities seen in these regions. No mass or significant lymphadenopathy. UPPER ABDOMEN: The visualized upper abdomen is unremarkable. BONES AND SOFT TISSUES: The bony structures show no significant acute findings. No focal bony mass lesions noted. The subcutaneous soft tissues are unremarkable. CT/Low Dose CT Lung Screening IMPRESSION: 4.5 x 3.9 x 2.9 cm mass is noted within the right apex with spiculated borders concerning for neoplastic process. A smaller pulmonary lesion measuring 1.4 x 1.2 x 1.5 cm within the right anna. Reading Location: [facility] CC: MAINTENANCE WELDER-Kiko Black; Dr. Joann Live MD ~ Supervisor Intelligence Analyst: Signed [facility]06-03-2025 NotePatient Outreach (INTMWS) EDMUNDO,ROSARIO Aguilera ([id number]) 1975 F Date Time Provider Department 12/17/24 EDWARD MARTINEZ During your visit today, we recorded the following information about you: Allergies As of Date: 12/17/2024 (No Known Allergies) Date Reviewed: 11/28/2022 Reviewed by: Kelly Beauchamp LPN - Fully Assessed Visit Diagnosis:Encounter for screening mammogram for breast cancer [Z12.31] Order(s):HERMILA WHITTINGTON W SANJUANA [[id number]] Order #: [id number] FUTURE Prescriptions as of 01/17/2025 - Ibuprofen 100 mg tablet Take 100 mg by mouth every 6 hours as needed. - multivitamin tablet Take 1 tablet by mouth once daily. 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 Joann Live MD Status:REG SDC Y Race: C Location: [place] [address] Anesthesia: Postop Eval I Current Vital Signs Temperature: 97.2 F Pulse Rate: 76 Blood Pressure: 86/72 Respiratory Rate: 16 Pulse Ox: 96 Oxygen Delivery Method: Room Air Assessment Airway patent: Yes Spontaneous unlabored respirations: Yes Mental status: Awake and Calm nausea: No Vomiting: No Anesthesia Complication: No Fluid Hydration Crystalloid volume administer (ml): 40 Total IV fluid infused: 40 Progress Note Anesthesia document: Postop Eval 1 completed: Yes 10/22/24 0924 > Date _ Dean Olivoyaritza Georgesignyaritza Signature: Date CC: ~ Signed [facility]04-08-2025 Procedure note [facility] Medical Records Department [address] [place] [id number] Colonoscopy Report MR#: [id number] Acct: [id number] Name: ROSARIO WYATT Rep #:[id number] : 1975 48 From: Justus Robertson MD PCP: Dr. Joann Live MD Status:[facility] Patient Name: Rosario Wyatt Procedure Date: 10/22/2024 8:46 AM Date of : 1975 Age: 48 Procedure: Colonoscopy Indications: Screening for colorectal malignant neoplasm Providers: Justus Robertson MD Referring MD: Joann Live Medicines: Monitored Anesthesia Care Patient Profile: Refer to note in patient chart for documentation of history and physical. Last Colonoscopy: none. The patient's first colonoscopy is today. Complications: No immediate complications. Estimated blood loss: None. Procedure: Pre-Anesthesia Assessment: - Prior to the procedure, a History and Physical was performed, and patient medications and allergies were reviewed. The patient's tolerance of previous anesthesia was also reviewed. The risks and benefits of the procedure and the sedation options and risks were discussed with the patient. All questions were answered, and informed consent was obtained. Prior Anticoagulants: The patient has taken no anticoagulant or antiplatelet agents. ASA Grade Assessment: II - A patient with mild systemic disease. After reviewing the risks and benefits, the patient was deemed in satisfactory condition to undergo the procedure. After I obtained informed consent, the scope was passed under direct vision. Throughout the procedure, the patient's blood pressure, pulse, and oxygen saturations were monitored continuously. The adult colonoscope was introduced through the anus and advanced to the cecum, identified by the appendiceal orifice, IC valve and transillumination. The ileocecal valve, appendiceal orifice, and rectum were photographed. The entire colon was well visualized. The colonoscopy was performed without difficulty. The patient tolerated the procedure well. The quality of the bowel preparation was adequate. Moderate Sedation: See the other procedure note for documentation of moderate sedation with intraservice time. Scope In: 8:57:10 AM Scope Withdrawal Time 0 hours 9 minutes 34 seconds Scope Out: 9:15:51 AM Total Procedure Duration Time 0 hours 18 minutes 41 seconds Findings: The perianal and digital rectal examinations were normal. Multiple small and large-mouthed diverticula were found in the entire colon. Internal hemorrhoids were found during retroflexion. The hemorrhoids were small. The exam was otherwise without abnormality on direct and retroflexion views. Impression: - Diverticulosis in the entire examined colon. - Internal hemorrhoids. - The examination was otherwise normal on direct and retroflexion views. - No specimens collected. Recommendation: - Discharge patient to home. - High fiber diet. - Repeat colonoscopy in 10 years for screening purposes. - Return to my office PRN. - Continue present medications. Procedure Code(s): --- Professional --- 69400, Colonoscopy, flexible; diagnostic, including collection of specimen(s) by brushing or washing, when performed (separate procedure) Diagnosis Code(s): --- Professional --- Z12.11, Encounter for screening for malignant neoplasm of colon K57.30, Diverticulosis of large intestine without perforation or abscess without bleeding K64.8, Other hemorrhoids CPT copyright 2021 [employer]. All rights reserved. The codes documented in this report are preliminary and upon exhaust emissions inspector review may be revised to meet current compliance requirements. Justus Robertson MD 10/22/2024 9:23:43 AM This report has been signed electronically. Number of Addenda: 0 Note Initiated On: 10/22/2024 8:46 AM 10/22/24923 Date _ Justus Robertson MD Cosigner Signature: Date (if indicated) CC: Dr. Joann Live MD; Dr. Jsutus Robertson MD ~ Date Dictated: 10/22/24845 Date Transcribed: Supervisor Intelligence Analyst: ERWIN Paige [facility]04-08-2025 Procedure note [facility] Medical Records Department [address] [place] [address] MIKEY ORTIZ [address] Operative Report - CC Letter MR#: [id number] Acct: [id number] Name: ROSARIO WYATT Rep #:[id number] : 1975 48 From: Justus Robertson MD PCP: Dr. Joann Live MD Status:[place] [facility] 10/22/2024 Joann Live [address] [place] [address] Re : Colonoscopy procedure for Rosario Wyatt Dear Dr. Live This procedure was performed on Tuesday, October 22, 2024. My impressions and recommendations are as follows: Impressions : - Diverticulosis in the entire examined colon. - Internal hemorrhoids. - The examination was otherwise normal on direct and retroflexion views. - No specimens collected. Recommendations : - Discharge patient to home. - High fiber diet. - Repeat colonoscopy in 10 years for screening purposes. - Return to my office PRN. - Continue present medications. My findings are described in the full procedure note, which is enclosed. If I can be of further assistance, please feel free to contact me at . Sincerely, Justus Robertson MD 10/22/2024 9:23:43 AM This report has been signed electronically. 10/22/24923 Date _ Justus Robertson MD [facility] Signature: Date (if indicated) CC: Dr. Joann Live MD; Dr. Justus Robertson MD ~ Date Dictated: 10/22/24845 Date Transcribed: Supervisor Intelligence Analyst: ERWIN Paige [facility]04-08-2025 Evaluation note* Diagnosis Onset Date Resolution Status Admit Date Encounter for screening for malignant neoplasm of colon acute Apri l 2024 7:08am [facility] Work Phone: 1(507) 871-329904-08-2025 Evaluation note* Diagnosis Onset Date Resolution Status Admit Date Encounter for screening for malignant neoplasm of colon acute Apri l 2024 7:08am Encounter for screening for malignant neoplasm of lung acute January 07, 2025 12:06pm History of tobacco use acute Ju 2024 12:06pm [employer] [facility] Work Phone: 1(505) 912-136904-08-2025 Evaluation note* Diagnosis Onset Date Resolution Status Admit Date Encounter for screening for malignant neoplasm of colon acute Apri l 2024 7:08am Encounter for screening for malignant neoplasm of lung acute January 07, 2025 12:06pm History of tobacco use acute Ju ne 2024 12:06pm Hypoxia acute January 08 12:35pm Mass of upper lobe of right lung acu te January 08, 2025 12:35pm Morning headache acute December 12:35pm Shortness of breath acute January 08, 2025 12:35pm [facility] Work Phone: 1(567) 761-406104-08-2025 History and physical note [facility] Medical Records Department [address] [place] [address] History & Physical Exam 10/22/24840 MR#: [id number] Acct: [id number] Name: ROSARIO WYATT Rep #:[id number] : 1975 48 From: Justus Robertson MD PCP: Dr. Joann Live MD Status:[place] [facility] [place]: [place] [address] HPI - General General Date of Admission: 10/22/24 Date of Service: 10/22/24 Chief Complaint: Colonoscopy HPI Narrative ROSARIO WYATT, is a 48 F who presents today for screening colonoscopy. She has had no previous colonoscopy. No GI issues or symptoms. No family history of colon polyps or colon cancers [facility] History Wears glasses Wears dentures Alcohol use Arthritis Injury of back Injury of head and neck Restless legs PONV (postoperative nausea and vomiting) Smoker Shortness of breath on exertion Leg cramps History of atrial fibrillation Lumbar disc herniation Home Medications ?Medication ?Instructions ?Recorded ?Last Taken ?Type cetirizine 10 mg capsule (Zyrtec) 10 mg PO DAILY 11/20 Unknown History multivitamin (Daily Multiple 1 ea PO DAILY 11/24/15 Un known History tablet) diclofenac sodium 1 % topical gel 2 g topical .qid PRN pain 08/15/24 Unknown History ibuprofen 200 mg tablet 200 mg PO Q6H PRN pain 08/15 Unknown History turmeric 400 mg capsule 400 mg PO QDAY 08/15/24 Unkn own History magnesium spray QHS 10/17/24 Unknown History Allergy/AdvReac Type Severity Reaction Status Date / Time sulfamethoxazole (From AdvReac Nausea/Vom/ Verified 10/22/24 07:31 Bactrim) Diarrhea trimethoprim (From Bactrim) AdvReac Nausea/Vom/ Verified 10/22/24 07:31 Diarrhea Surgical History History of tubal ligation History of lumpectomy of right breast History of surgery History of abdominal hysterectomy Social History household members: none current occupational status: employed Smoking Status: Current every day smoker tobacco type: cigarettes Vital Signs Vital Signs Vital Signs: 10/22/24 07:31 10/22/24 07:31 10/22/24 08:10 Temperature 98.1 F 98.1 F Temperature Source Temporal Pulse Rate 75 75 Respiratory Rate 16 16 Respiratory Pattern Normal Blood Pressure 106/74 106/74 Blood Pressure Mean 84 Blood Pressure Source Monitor Blood Pressure Position Semi-Fowlers Blood Pressure Location Right Arm Pulse Ox 99 99 Oxygen Delivery Method Room Air Room Air Weight Weight: 147 lb 11.355 oz Body Mass Index (BMI) 23.8 Physical Exam Const alert, oriented x3 and no apparent distress Assessment & Plan Assessment/Plan (1) Encounter for screening for malignant neoplasm of colon: PLAN: Plan The patient is a 48-year-old female in need of a screening colonoscopy. She hashad no prior colonoscopies. No GI issues or complaints. We discussed the details of the planned procedure as well as risk benefits and alternatives. Shewishes to proceed. This will begin momentarily. Charges/Coding Visit Charges Inpatient E&M: 33853 Init Hosp L1 10/22/24 0843 Cosigner Signature (if applicable): CC: Dr. Joann Live MD; Dr. Justus Robertson MD~ Signed [facility]04-08-[address] [facility] Medical Records Department [address] [place] [address] History Physical Exam 10/22/24 0841 MR#: [id number] Acct: [id number] Name: ROSARIO WYATT Rep #: [id number] : 1975 48 From: Justus Robertson MD PCP: Dr. Joann Live MD Status:[facility] Location: [place] [address] HPI - General General Date of Admission: 10/22/24 Date of Service: 10/22/24 Chief Complaint: Colonoscopy HPI Narrative ROSARIO WYATT, is a 48 F who presents today for screening colonoscopy. She has had no previous colonoscopy. No GI issues or symptoms. No family history of colon polyps or [facility] Medical History Wears glasses Wears dentures Alcohol use Arthritis Injury of back Injury of head and neck Restless legs PONV (postoperative nausea and vomiting) Smoker Shortness of breath on exertion Leg cramps History of atrial fibrillation Lumbar disc herniation Home Medications ???Medication ???Instructions ???Recorded ???Last Taken ???Type cetirizine 10 mg capsule (Zyrtec) 10 mg PO DAILY 11/21/15 Unknown H istory multivitamin (Daily Multiple 1 ea PO DAILY 11/24/15 Unknown His tory tablet) diclofenac sodium 1 % topical gel 2 g topical .qid PRN pain 5 Unknown History ibuprofen 200 mg tablet 200 mg PO Q6H PRN pain 08/15/24 Un known History turmeric 400 mg capsule 400 mg PO QDAY 08/15/24 Unknown Hi story magnesium spray QHS 10/17/24 Unknown History Allergy/AdvReac Type Severity Reaction Status Date / Time sulfamethoxazole (From AdvReac Nausea/Vom/ Verified 10/22/24 07:31 Bactrim) Diarrhea trimethoprim (From Bactrim) AdvReac Nausea/Vom/ Verified 10/22/24 07:31 Diarrhea Surgical History History of tubal ligation History of lumpectomy of right breast History of surgery History of abdominal hysterectomy Social History household members: none current occupational status: employed Smoking Status: Current every day smoker tobacco type: cigarettes Vital Signs Vital Signs Vital Signs: 10/22/24 07:31 10/22/24 07:31 10/22/24 08:10 Temperature 98.1 F 98.1 F Temperature Source Temporal Pulse Rate 75 75 Respiratory Rate 16 16 Respiratory Pattern Normal Blood Pressure 106/74 106/74 Blood Pressure Mean 84 Blood Pressure Source Monitor Blood Pressure Position Semi-Fowlers Blood Pressure Location Right Arm Pulse Ox 99 99 Oxygen Delivery Method Room Air Room Air Weight Weight: 147 lb 11.355 oz Body Mass Index (BMI) 23.8 Physical Exam Const alert, oriented x3 and no apparent distress Assessment Plan Assessment/Plan (1) Encounter for screening for malignant neoplasm of colon: PLAN: Plan The patient is a 48-year-old female in need of a screening colonoscopy. She has had no prior colonoscopies. No GI issues or complaints. We discussed the details of the planned procedure as well as risk benefits and alternatives. She wishes to proceed. This will begin momentarily. Charges/Coding Visit Charges Inpatient E M: 48894 Init Hosp L1 10/22/24 0843 Cosigner Signature (if applicable): CC: Dr. Joann Live MD; Dr. Justus Robertson MD [facility]04-08-2025 Consult note [facility] Medical Records Department [address] [place] [address] Pre-Anesthesia Evaluation 10/22/24 0800 MR#: [id number] Acct: [id number] Name: ROSARIO WYATT Rep #:[id number] : 1975 48 From: Wolfgang Roberts MD PCP: Dr. Joann Live MD Status:REG SD Y Race: C Location: [place] [address] ASA Classification* ASA Classification ASA Classification: 2 Assessment & Plan Anesthesia* Anesthesia Assessment Anesthesia Assessment: Discussed sedation and/or anesthesia options, risks, benefits, and alternatives with patient/parents/legal guardian/POA. Questions invited. The patient/parents/legal guardian/POA seems to understand and agrees to proceedwith anesthesia plan. Reviewed the physical assessment, medical history, allergy history and patient home medications list prior to surgery/procedure/anesthetic and documented any changes. Performed airway and anesthesia risk assessments. Anesthesia Type Anesthesia Type: MAC History Source History Obtained from:: Patient and Chart Anesthesia Focused Assessment* Temperature: 98.1 F Pulse Rate: 75 Blood Pressure: 106/74 Respiratory Rate: 16 Pulse Ox: 99 Oxygen Delivery Method: Room Air Airway Assessment Mouth opens: >3 cm Mallampati Score: I Teeth Condition: Dentures (Full upper dentures.) and Missing (Patient has 8 natural teeth left on the bottom. They are tight.) Neck Range of motion (ROM): Full ROM Focused Labs Anesthesia Preop lab: CBC WBC 7.5 K/mm3 (4.4-11.0) 08/08/23 15:40 08/08/23 RBC 4.40 M/mm3 (4.2-5.4) 08/08/23 15:40 08/08/23 Hgb 13.3 g/dL (12.0-15.0) 08/08/23 15:40 08/08/23 Hct 41.7 % (37-47) 08/08/23 15:40 08/08/23 Plt Count 267 K/mm3 (150-450) 08/08/23 15:40 08/08/23 CHEMISTRY Potassium 3.7 mmol/L (3.5-5.1) 08/08/23 15:40 08/08/23 Sodium 143 mmol/L (136-145) 08/08/23 15:40 08/08/23 BUN 16 mg/dL (7-18) 08/08/23 15:40 08/08/23 Creatinine 0.59 mg/dL (0.55-1.02) 08/08/23 15:40 08/08/23 Glucose 92 mg/dL (74-106) 08/08/23 15:40 08/08/23 TSH 1.15 uIU/mL (0.358-3.74) 08/08/23 15:40 COAG Pre-Assessment Diagnosis/Proposed Procedure Planned Operative Procedure(s): COLONOSCOPY Anesthesia History Anesthesia History - rrts: Anesthesia History - rrts Hx Hospitalization No 10/17/24 15:20 Any Problems With Anesthesia Yes: woke up during Tubal 10/17/24 15:20 Lig Cholinesterase deficiency No 10/17/24 15:20 You/Your Family Experience No 10/17/24 15:20 fever (hyperthermia) with Relationship Recent Exposure to Contagious No 10/22/24 07:31 Disease Does patient have nerve No 10/17/24 15:20 stimulator Patient instructed to have device shut off --Does patient have Pacemaker No 10/22/24 07:31 or ICD? When Was Last Pacemaker Check QUESTION #4 FULL TEXT: You/Your Family Experience fever (hyperthermia) with Anesthesia Last Oral Intake Last Oral intake: Last Oral Intake NPO since 04:00 10/22/24 07:31 Meds taken in AM with sips of No 10/22/24 07:31 water? Meds patient instructed to take am of surgery Any additional information?: Yes NPO since: 04:00 (Patient finished prep at 4 AM.) Meds taken in AMwith sips of water?: No PONV PONV - rrts: PONV - rrts Female Yes 10/17/24 15:20 HX of Motion Sickness No 10/17/24 15:20 HX of N/V After Surgery Yes 10/17/24 15:20 Non-Smoker No 10/17/24 15:20 Duration of Surgery greater No 10/17/24 15:20 than 60 minutes Number of Risk Factors 2 10/17/24 15:20 PONV Score Moderate Risk 10/17/24 15:20 Height & Weight Height & Weight: Anesthesia: Height & Weight Height 5 ft 6 in 10/22/24 07:31 Weight: 67 kg 10/22/24 07:31 Body Mass Index (BMI) 23.8 10/22/24 07:31 Respiratory Assessment Respiratory Assessment - rrts: Respiratory Tract Infection Hx - rrts Hx Respiratory Tract Infection No 10/17/24 15:20 STOP Sleep Apnea STOP Sleep Apnea - rrts: STOP Sleep Apnea - rrts Hx Hypertension No 10/17/24 15:20 Hx Sleep Apnea No 10/17/24 15:20 CPAP BIPAP Do you snore loudly (louder No 10/17/24 15:20 than talking or can be heard Do you often feel tired/ No 10/17/24 15:20 fatigued/ sleepy during daytime? Has anyone observed you stop No 10/17/24 15:20 breathing during sleep? STOP Results Negative 10/17/24 15:20 QUESTION #5 FULL TEXT : Do you snore loudly (louder than talking or can be heard through closeddoors)? 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 Specify any problems Hx of Preganancy in last 3 No 10/17/24 15:20 Months Nurse Filling Out Transfusion MGRIFFITH 10/17/24 15:20 & Questions: Date: 10/17/24 10/17/24 15:20 Time: 15:23 10/17/24 15:20 Patient unable to answer at this time (ie. confused, unrespo /Reproduction History /Reproductive History - rrts: /Reproductive Hx- rrts Hx Now No 10/17/24 15:20 Gestational Age (in weeks): EDC: Hx Hx Para Hx Section SAB No 10/17/24 15:20 PFS Medical History Wears glasses Wears dentures Alcohol use Arthritis Injury of back Injury of head and neck Restless legs PONV (postoperative nausea and vomiting) Smoker Shortness of breath on exertion Leg cramps History of atrial fibrillation Lumbar disc herniation Home Medications ?Medication ?Instructions ?Recorded ?Last Taken ?Type cetirizine 10 mg capsule (Zyrtec) 10 mg PO DAILY 11/20 Unknown History multivitamin (Daily Multiple 1 ea PO DAILY 11/24/15 Un known History tablet) diclofenac sodium 1 % topical gel 2 g topical .qid PRN pain 08/15/24 Unknown History ibuprofen 200 mg tablet 200 mg PO Q6H PRN pain 08/15 Unknown History turmeric 400 mg capsule 400 mg PO QDAY 08/15/24 Unkn own History magnesium spray QHS 10/17/24 Unknown History Allergy/AdvReac Type Severity Reaction Status Date / Time sulfamethoxazole (From AdvReac Nausea/Vom/ Verified 10/22/24 07:31 Bactrim) Diarrhea trimethoprim (From Bactrim) AdvReac Nausea/Vom/ Verified 10/22/24 07:31 Diarrhea Surgical History History of tubal ligation History of lumpectomy of right breast History of surgery History of abdominal hysterectomy Social History household members: none current occupational status: employed Smoking Status: Current every day smoker tobacco type: cigarettes Review of Systems (Anesthesia) ROS Narrative System reviewed and no additional complaints, except as documented. 10/22/24 Sidney verdin MD> Date _ Wolf[facility] Roberts [facility] Signature: Date CC: ~ Signed [facility]03-06-2024 Procedure [facility] 12-06-2022 History of Present illness Narrative* Kelly Chavez RDMS - 12/06/2022 8:30 AM EDT Radiology Service Progress Note PATIENT NAME: Rosario Wyatt DATE OF SERVICE: December 06, 2022 TIME: 9:20 AM PATIENT IDENTITY VERIFICATION COMPLETED USING TWO (2) IDENTIFIERS: Name and Date of confirmedby patient verbally. FALL SCREENING: Has the patient [...] 06, 2022 9:20 AM documented in this encounterSum[facility]05-23-[facility]23 History of Present illness Narrative* Marisabel Drake Mammo Tech - 12/06/2022 8:00 AM EDT Radiology Service Progress Note PATIENT NAME: Rosario Wyatt DATE OF SERVICE: December 06, 2022 TIME: 7:51 AM PATIENT IDENTITY VERIFICATION COMPLETED USING TWO (2) IDENTIFIERS: Name and Date of confirmedby patient verbally. FALL SCREENING: Has the patient had 2 falls in the last year or 1 fall with injury or currently using an Ambulatory Assistive Device (Walker, Cane, Wheelchair, Crutches, etc.)? No PATIENT GENDER DATA: Female. status: : No status: NO. PATIENT RELEVANT IMPLANT DATA REVIEWED: Not Applicable RADIOLOGY DEPARTMENT: Mammography PERIPHERAL IV DATA: Not applicable SIGNED BY: Abran Larson December 06, 2022 7:51 AM documented in this encounterSumma Health [facility]05-02-2023 Instructions* Patient Instructions* Kandice Mario APRN.FRAMING [employer] HANGING - 11/15/2022 9:33 AM EDT Health Information [...] until the day before your colonoscopy. Designated Museum Informatics Specialist on the Day of Your Exam A responsible family member or friend MUST come with you to your colonoscopy and REMAIN in the endoscopy area until you are discharged! You are NOT ALLOWED to drive, take a taxi or bus, or leave the Endoscopy Center ALONE. If you do not have a responsible taxi truck driver (family member or friend) with you [...] carbonated beverages such as elana sang or lemon-sauk-suiattle soda; Gatorade or other sports drinks (not [...] calling after 5:00 PM, please call Nurse emerging solutions executive at [phone]. [facility] [address] [address] Index # 94177 Revised 08/2016 3 Colonoscopy Procedure Overview Please [...] If the nausea persists, please contact nurse sales service professional at [phone]. You may experience skin irritation around the anus due to the passage of liquid stools. To prevent and treat skin irritation, you should: ?Apply Vaseline or Desitin ointment to the skin around the anus before drinking the bowel preparation medications. These products can be purchased at any [employer]. ?Wipe the skin after each bowel movement [...] colon. The colonoscope is inserted into the rectumand advanced through the large intestine. If necessary during a colonoscopy, small amounts of tissue can be removed for analysis (a biopsy) and polyps can be identified and entirely removed. In many cases, a colonoscopy allows accurate diagnosis and treatment of colorectal problems without the needfor a major operation. Revised 08/2016 5 ?You [...] to your normal diet. We recommend you waituntil the day after your procedure to resume [...] large amount of rectal bleeding, high or persistentfevers, or severe abdominal pain within the next 2 weeks, please go to your local emergency room and call the physician who performed your exam. 6 Revised 08/2016 Copyright 3735-9605 [facility]. All rights reserved. Revised 08/2016 documented in this encounterSumma Health [facility]05-02-2023 History of Present illness Narrative* Kandice Mario APRN.ESPERANZA - 11/15/2022 9:26 AM EDT Images from the original note were not [...] occur. Patient agreeable to treatment plan. Kandice Older, SEWING TRIMMER.FRAMING AND HANGING [facility] OPEN ACCESS QUESTIONNAIRE 1. Are you currently having any new or unusual stomach/gastrointestinal issues at this time such asconstipation, diarrhea, abdominal pain, rectal bleeding etc?No 2. Do you have any difficulty swallowing? No 3. Do you have any implanted devices such as a defibrillator, pacemaker, cardiac stents or deep brain stimulator? No 4. Do you take any Blood thinners such as Coumadin, Plavix, Xarelto, Eliquis, Brilinta or any otherblood thinner? No 5. Do you have any [...] prep will print upon filing or pending thissmartset. Please send all open access questionnaires to [facility] Pool #[id number] documented in this encounterSumma Health [facility]04-25-2023 History of Present illness Narrative* Ton Conde PT - 11/08/2022 3:37 PM EDT Episode Visit Count: 2 Therapist That Will [...] stretching and strengthening with extension directional preference. Continuepostural correction. Progress therex in the department and [...] 45 Ton Conde PT documented in this encounterSumma Health [facility]04-24-2023 Miscellaneous Notes* Telephone Encounter - Roya Cordon LPN - 11/07/2022 7:57 AM EDT Apts booked. Roya Cordon LPN * Telephone Encounter - Roya Cordon LPN - 10/31/2022 2:23 PM EDT Pt called and reports she got a letter that she needed further testing done regarding her mammogram. Please put in orders and let pt know so she can make the apts. Pt requesting to stay in [place] because of transportation. Roya Cordon LPN documented in this encounterSumma Health [facility]04-13-2023 Miscellaneous Notes* Telephone Encounter - Marine Gunter MA - 10/27/2022 11:46 AM EDT The following approved medication requests have been transmitted electronically. Requested Prescriptions Signed Prescriptions Disp Refills traZODone (DESYREL) 50 mg tablet 30 tablet 0 Sig: Take 1 tablet by mouth every evening. Authorizing Provider: EDWARD MARTINEZ MA * Telephone Encounter - Fariba Jack RN - 10/27/2022 11:23 AM EDT If PCP office would please phone in script, as instructed by Dr. Martinez below. Thank you. Patient has been notified of new order. Fariba Jack RN * Telephone Encounter - Fariba Jack RN - 10/27/2022 11:20 AM EDT Patient notified. Fariba Jack RN * Telephone Encounter - Edward Martinez MD - 10/27/2022 9:54 AM EDT Patient's request for medication is as follows Requested Prescriptions Signed Prescriptions Disp Refills traZODone (DESYREL) 50 mg tablet 30 tablet 0 Sig: Take 1 tablet by mouth every evening. Authorizing Provider: EDWARD MARTINEZ Order entered - please phone pharmacy and notify patient. Edward Martinez MD * Telephone Encounter - Fariba Jack RN - 10/27/2022 8:23 AM EDT Patient calling and reports she has been having difficulty sleeping. Reports she stopped drinking alcohol earlier this year and is not sleeping well. Asking if PCP can prescribe medication to help her sleep. Uses [facility]. Last OV: 10/19/22-with Dr. Cason for Est Care and low back pain. Please call patient with update. [phone] Thank you. documented in this encounterSumma Health [facility]04-12-2023 Miscellaneous Notes* Letter - Mammography Coordinator - 10/26/2022 8:04 AM EDT October 26, 2022 PID: [id number] Rosario Wyatt [address] [address] Dear Ms. Wyatt, Your recent breast imaging exam on 10/25/2022 showed a possible finding that requires additional imaging studies for a complete evaluation. Most such findings are probably benign (not cancer). If you have a healthcare provider who ordered/prescribed your screening mammogram: Please call [phone] or [phone] to schedule an appointment for your additional imaging (if youhave not already done so). If you DO [...] and reports are kept on [facility] as part of your permanent medical record, and are available for your continuing care. Thank you for allowing us to help in meeting your health care needs. Sincerely, Dr. Sandoval Interpreting Radiologist [facility] (Additional imaging) documented in this encounterSumma Health [facility]04-11-2023 History of Present illness Narrative* Karine Silvestre, RT(R) - 10/25/2022 3:00 PM EDT Radiology Service Progress Note PATIENT NAME: Rosario Wyatt DATE OF SERVICE: October 25, 2022 TIME: 2:47 PM PATIENT IDENTITY VERIFICATION COMPLETED USING TWO (2) IDENTIFIERS: Name and Date of confirmedby patient verbally. FALL SCREENING: Has the patient [...] RT Katie(R) October 25, 2022 2:47 PM documented in this encounterSumma Health [facility]04-05-2023 History of Present illness Narrative* Nu Brown RT(R) - 10/19/2022 5:40 PM EDT Radiology Service Progress Note PATIENT NAME: Rosario Wyatt DATE OF SERVICE: October 19, 2022 TIME: 5:38 PM PATIENT IDENTITY VERIFICATION COMPLETED USING TWO (2) IDENTIFIERS: Name and Date of confirmedby patient verbally. FALL SCREENING: Has the patient [...] RT Julieth(R) October 19, 2022 5:38 PM documented in this encounterSumma Health [facility]04-05-2023 Miscellaneous Notes* Result Encounter Note - Edward Martinez MD - 10/19/2022 5:40 PM EDT Result viewed. No acute disease. documented in this encounterSumma Health [facility]04-05-2023 Progress note* Result Encounter Note - Edward Martinez MD - 10/19/2022 5:40 PM EDT Result viewed. No acute disease. [facility] History of Present illness Narrative* RAHEEM Johnson - 10/18/2022 7:30 AM EDT This note was created using Lalalamariter. Subjective Rosario Wyatt is a 46 year old female. HPI 46-year-old female presents for lumbar pain. Patient states she has been having lumbar pain forabout 3 days after lifting a box. She states that she was told in the past that she had a herniateddisc. She got epidural shots for it. She states this was many many years ago. She occasionally getssome intermittent pains and issues with her lumbar spine. She denies ever having surgery in the lumbar spine. She has not followed up for it for several years. Patient states that after lifting a boxa few days ago, she got pain in the right lower lumbar spine and some pain radiating down her lightleg. No bowel/bladder incontinence. No saddle anesthesia. No [...] Right 10/2016 breast abscess S BALLOON,UTERINE ABLATION [address] 2007 TUBAL LIGATION HX 1995 ALLERGIES Patient [...] by mouth three times daily as needed forCough. (Patient not taking: Reported on 10/18/2022) FAMILY [...] operating machinery while taking this as it maycause drowsiness. -No NSAIDs while taking the Medrol [...] ER evaluation. RAHEEM Johnson documented in this encounterSumma Health [facility]12-08-2016 History of Past illness Narrative* Problem Noted Date Resolved Date Chronic diarrhea 06/23/2016 10/19/2022 documented as of this encounter (statuses as of 10/28/2022) [place] [address]-08-2016 History of Past illness Narrative* Problem Noted Date Resolved Date Chronic diarrhea 06/23/2016 10/19/2022 documented as of this encounter (statuses as of 10/28/2022) [address]08-2016 History of Past illness Narrative* Problem Noted Date Resolved Date Chronic diarrhea 06/23/2016 10/19/2022 documented as of this encounter (statuses as of 11/07/2022) [place] [address]08[address]2016 History of Past illness Narrative* Problem Noted Date Resolved Date Chronic diarrhea 06/23/2016 10/19/2022 documented as of this encounter (statuses as of 11/09/2022) [place] [address]08-2016 History of Past illness Narrative* Problem Noted Date Resolved Date Chronic diarrhea 06/23/2016 10/19/2022 documented as of this encounter (statuses as of 11/15/2022) [facility] of Past illness Narrative* Problem Noted Date Diagnosed Date Resolved Date Chronic diarrhea 06/23/2016 10/19/2022 documented as of this encounter (statuses as of 05/21/2023) [facility] of Past illness Narrative* Problem Noted Date Diagnosed Date Resolved Date Chronic diarrhea 06/23/2016 10/19/2022 documented as of this encounter (statuses as of 05/21/2023) [facility] of Past illness Narrative* Problem Noted Date Diagnosed Date Resolved Date Chronic diarrhea 06/23/2016 10/19/2022 documented as of this encounter (statuses as of 05/21/2023) [facility] CampusConsult note Author Wolfgang Roberts [facility] Note Date/Time October 22, 2024 8:10 am [facility] Medical Records Department [address] [place] [id number] Pre-Anesthesia Evaluation 10/22/24 0800 MR#: [id number] Acct: [id number] Name: ROSARIO WYATT Rep #:[id number] : 1975 48 From: Wolfgang Roberts MD PCP: Dr. Joann Live MD Status:[place] [facility] Race: C Location: [place] [address] ASA Classification* ASA Classification ASA Classification: 2 Assessment & Plan Anesthesia* Anesthesia Assessment Anesthesia Assessment: Discussed sedation and/or anesthesia options, risks, benefits, and alternatives with patient/parents/legal guardian/POA. Questions invited. The patient/parents/legal guardian/POA seems to understand and agrees to proceedwith anesthesia plan. Reviewed the physical assessment, medical history, allergy history and patient home medications list prior to surgery/procedure/anesthetic and documented any changes. Performed airway and anesthesia risk assessments. Anesthesia Type Anesthesia Type: MAC History Source History Obtained from:: Patient and Chart Anesthesia Focused Assessment* Temperature: 98.1 F Pulse Rate: 75 Blood Pressure: 106/74 Respiratory Rate: 16 Pulse Ox: 99 Oxygen Delivery Method: Room Air Airway Assessment Mouth opens: >3 cm Mallampati Score: I Teeth Condition: Dentures (Full upper dentures.) and Missing (Patient has 8 natural teeth left on the bottom. They are tight.) Neck Range of motion (ROM): Full ROM Focused Labs Anesthesia Preop lab: CBC WBC 7.5 K/mm3 (4.4-11.0) 08/08/23 15:40 08/08/23 RBC 4.40 M/mm3 (4.2-5.4) 08/08/23 15:40 08/08/23 Hgb 13.3 g/dL (12.0-15.0) 08/08/23 15:40 08/08/23 Hct 41.7 % (37-47) 08/08/23 15:40 08/08/23 Plt Count 267 K/mm3 (150-450) 08/08/23 15:40 08/08/23 CHEMISTRY Potassium 3.7 mmol/L (3.5-5.1) 08/08/23 15:40 08/08/23 Sodium 143 mmol/L (136-145) 08/08/23 15:40 08/08/23 BUN 16 mg/dL (7-18) 08/08/23 15:40 08/08/23 Creatinine 0.59 mg/dL (0.55-1.02) 08/08/23 15:40 08/08/23 Glucose 92 mg/dL (74-106) 08/08/23 15:40 08/08/23 TSH 1.15 uIU/mL (0.358-3.74) 08/08/23 15:40 COAG Pre-Assessment Diagnosis/Proposed Procedure Planned Operative Procedure(s): COLONOSCOPY Anesthesia History Anesthesia History - rrts: Anesthesia History - rrts Hx Hospitalization No 10/17/24 15:20 Any Problems With Anesthesia Yes: woke up during Tubal 10/17/24 15:20 Lig Cholinesterase deficiency No 10/17/24 15:20 You/Your Family Experience No 10/17/24 15:20 fever (hyperthermia) with Relationship Recent Exposure to Contagious No 10/22/24 07:31 Disease Does patient have nerve No 10/17/24 15:20 stimulator Patient instructed to have device shut off --Does patient have Pacemaker No 10/22/24 07:31 or ICD? When Was Last Pacemaker Check QUESTION #4 FULL TEXT: You/Your Family Experience fever (hyperthermia) with Anesthesia Last Oral Intake Last Oral intake: Last Oral Intake NPO since 04:00 10/22/24 07:31 Meds taken in AM with sips of No 10/22/24 07:31 water? Meds patient instructed to take am of surgery Any additional information?: Yes NPO since: 04:00 (Patient finished prep at 4 AM.) Meds taken in AM with sips of water?: No PONV PONV - rrts: PONV - rrts Female Yes 10/17/24 15:20 HX of Motion Sickness No 10/17/24 15:20 HX of N/V After Surgery Yes 10/17/24 15:20 Non-Smoker No 10/17/24 15:20 Duration of Surgery greater No 10/17/24 15:20 than 60 minutes Number of Risk Factors 2 10/17/24 15:20 PONV Score Moderate Risk 10/17/24 15:20 Height & Weight Height & Weight: Anesthesia: Height & Weight Height 5 ft 6 in 10/22/24 07:31 Weight: 67 kg 10/22/24 07:31 Body Mass Index (BMI) 23.8 10/22/24 07:31 Respiratory Assessment Respiratory Assessment - rrts: Respiratory Tract Infection Hx - rrts Hx Respiratory Tract Infection No 10/17/24 15:20 STOP Sleep Apnea STOP Sleep Apnea - rrts: STOP Sleep Apnea - rrts Hx Hypertension No 10/17/24 15:20 Hx Sleep Apnea No 10/17/24 15:20 CPAP BIPAP Do you snore loudly (louder No 10/17/24 15:20 than talking or can be heard Do you often feel tired/ No 10/17/24 15:20 fatigued/ sleepy during daytime? Has anyone observed you stop No 10/17/24 15:20 breathing during sleep? STOP Results Negative 10/17/24 15:20 QUESTION #5 FULL TEXT : Do you snore loudly (louder than talking or can be heard through closed doors)? 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 Specify any problems Hx of Preganancy in last 3 No 10/17/24 15:20 Months Nurse Filling Out Transfusion MGRIFFITH 10/17/24 15:20 & Questions: Date: 10/17/24 10/17/24 15:20 Time: 15:10/17/24 15:20 Patient unable to answer at this time (ie. confused, unrespo /Reproduction History /Reproductive History - rrts: /Reproductive Hx- rrts Hx Now No 10/17/24 15:20 Gestational Age (in weeks): EDC: Hx Hx Para Hx Section SAB No 10/17/24 15:20 PFSH Medical History Wears glasses Wears dentures Alcohol use Arthritis Injury of back Injury of head and neck Restless legs PONV (postoperative nausea and vomiting) Smoker Shortness of breath on exertion Leg cramps History of atrial fibrillation Lumbar disc herniation Home Medications ?Medication ?Instructions ?Recorded ?Last Taken ?Type cetirizine 10 mg capsule (Zyrtec) 10 mg PO DAILY 11/20 Unknown History multivitamin (Daily Multiple 1 ea PO DAILY 11/24/15 Un known History tablet) diclofenac sodium 1 % topical gel 2 g topical .qid PRN pain 08/15/24 Unknown History ibuprofen 200 mg tablet 200 mg PO Q6H PRN pain 08/15 Unknown History turmeric 400 mg capsule 400 mg PO QDAY 08/15/24 Unkn own History magnesium spray QHS 10/17/24 Unknown History Allergy/AdvReac Type Severity Reaction Status Date / Time sulfamethoxazole (From AdvReac Nausea/Vom/ Verified 10/22/24 07:31 Bactrim) Diarrhea trimethoprim (From Bactrim) AdvReac Nausea/Vom/ Verified 10/22/24 07:31 Diarrhea Surgical History History of tubal ligation History of lumpectomy of right breast History of surgery History of abdominal hysterectomy Social History household members: none current occupational status: employed Smoking Status: Current every day smoker tobacco type: cigarettes Review of Systems (Anesthesia) ROS Narrative System reviewed and no additional complaints, except as documented. 10/22/24809 <Electronically signed by Wolfgang verdin MD> Date _ Wolfgang Roberts MD Cosigner Signature: Date CC: ~ Signed [facility] Work Phone: Consult note Author Dean Marshall [facility] Note Date/Time October 22, 2024 9:24 am [facility] Medical Records Department [address] [place] [address] Anesthesia Postop Eval I 10/22/24922 MR#: [id number] Acct: [id number] Name: EDMUNDOROSARIO Rep #:[id number] : 1975 48 From: Dean Marshall PCP: Dr. Joann Live MD Status:REG SDC Y Race: C Location: [place] [address] Anesthesia: Postop Eval I Current Vital Signs Temperature: 97.2 F Pulse Rate: 76 Blood Pressure: 86/72 Respiratory Rate: 16 Pulse Ox: 96 Oxygen Delivery Method: Room Air Assessment Airway patent: Yes Spontaneous unlabored respirations: Yes Mental status: Awake and Calm nausea: No Vomiting: No Anesthesia Complication: No Fluid Hydration Crystalloid volume administer (ml): 40 Total IV fluid infused: 40 Progress Note Anesthesia document: Postop Eval 1 completed: Yes 10/22/24923 <Electronically signed by Dean Marshall > Date _ Dean Marshall Destiniedwin Signature: Date CC: ~ Signed [facility] Work Phone: Evaluation note* Diagnosis Acute midline low back pain with right-sided sciatica- Primary documented in this 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* Diagnosis Abnormal screening mammogram- Primary Abnormal mammogram, unspecified documented in this encounter [facility]* Diagnosis Acute back pain with sciatica, right- Primary documented in this encounter [facility]* Diagnosis Skin lesion of left leg- Primary Unspecified disorder of skin and subcutaneous tissue Acute back pain with sciatica, right Elevated liver enzymes Other nonspecific abnormal serum enzyme levels Special screening for malignant neoplasms, colon Encounter for immunization Need for other specified prophylactic vaccination against single bacterial disease documented in this encounter [facility] note* Diagnosis Abnormal screening mammogram Abnormal mammogram, unspecified documented in this encounter [facility]* Diagnosis Screening mammogram for breast cancer documented in this encounter [facility]* Diagnosis Abnormal screening mammogram Abnormal mammogram, unspecified documented in this encounter [facility] noteNo assessment information availableWSt. Mary's [facility] Work Phone: Evaluation note* Diagnosis Encounter for screening mammogram for breast cancer documented in this encounter [facility]* Diagnosis Acute bilateral low back pain with right-sided sciatica documented in this encounter [facility]* Diagnosis Encounter for screening mammogram for breast cancer [facility] Justus Robertson [facility] Note Date/Time October 22, 2024 8:43 am [facility] Medical Records Department [facility] [place] [address] History & Physical Exam 10/22/24 0841 MR#: [id number] Acct: [id number] Name: ROSARIO WYATT Rep #:[id number] : 1975 48 From: Justus Robertson MD PCP: Dr. Joann Live MD Status:[facility] Location: [place] [address] HPI - General General Date of Admission: 10/22/24 Date of Service: 10/22/24 Chief Complaint: Colonoscopy HPI Narrative ROSARIO WYATT, is a 48 F who presents today for screening colonoscopy. She has had no previous colonoscopy. No GI issues or symptoms. No family history of colon polyps or colon cancers [facility] Medical History Wears glasses Wears dentures Alcohol use Arthritis Injury of back Injury of head and neck Restless legs PONV (postoperative nausea and vomiting) Smoker Shortness of breath on exertion Leg cramps History of atrial fibrillation Lumbar disc herniation Home Medications ?Medication ?Instructions ?Recorded ?Last Taken ?Type cetirizine 10 mg capsule (Zyrtec) 10 mg PO DAILY 11/20 Unknown History multivitamin (Daily Multiple 1 ea PO DAILY 11/24/15 Un known History tablet) diclofenac sodium 1 % topical gel 2 g topical .qid PRN pain 08/15/24 Unknown History ibuprofen 200 mg tablet 200 mg PO Q6H PRN pain 08/15 Unknown History turmeric 400 mg capsule 400 mg PO QDAY 08/15/24 Unkn own History magnesium spray QHS 10/17/24 Unknown History Allergy/AdvReac Type Severity Reaction Status Date / Time sulfamethoxazole (From AdvReac Nausea/Vom/ Verified 10/22/24 07:31 Bactrim) Diarrhea trimethoprim (From Bactrim) AdvReac Nausea/Vom/ Verified 10/22/24 07:31 Diarrhea Surgical History History of tubal ligation History of lumpectomy of right breast History of surgery History of abdominal hysterectomy Social History household members: none current occupational status: employed Smoking Status: Current every day smoker tobacco type: cigarettes Vital Signs Vital Signs Vital Signs: 10/22/24 07:31 10/22/24 07:31 10/22/24 08:10 Temperature 98.1 F 98.1 F Temperature Source Temporal Pulse Rate 75 75 Respiratory Rate 16 16 Respiratory Pattern Normal Blood Pressure 106/74 106/74 Blood Pressure Mean 84 Blood Pressure Source Monitor Blood Pressure Position Semi-Fowlers Blood Pressure Location Right Arm Pulse Ox 99 99 Oxygen Delivery Method Room Air Room Air Weight Weight: 147 lb 11.355 oz Body Mass Index (BMI) 23.8 Physical Exam Const alert, oriented x3 and no apparent distress Assessment & Plan Assessment/Plan (1) Encounter for screening for malignant neoplasm of colon: PLAN: Plan The patient is a 48-year-old female in need of a screening colonoscopy. She hashad no prior colonoscopies. No GI issues or complaints. We discussed the details of the planned procedure as well as risk benefits and alternatives. Shewishes to proceed. This will begin momentarily. Charges/Coding Visit Charges Inpatient E&M: 96969 Init Hosp L1 10/22/24 0843 <Electronically signed by Justus Robertson MD> Cosigner Signature (if applicable): CC: Dr. Joann Live MD; Dr. Justus Robertson MD~ Signed [facility] Work Phone: Reason for referral (narrative)* Diagnostic Procedure Only (Routine) - Pending Review Specialty Diagnoses / Procedures Referred By Madeline hamlin Referred To Contact [facility] Diagnoses Abnormal screening mammogram Procedures US BREAST LTD LEFT US BREAST UNI REAL TIME WITH IMAGE LIMITED Kandice Mario APRN.CNP [address] [place] [address] [facility] [address] [facility] [place] [address] Referral ID Status Reason Start Date Expiration Date Visits Requested Visits Authorized [id number] Pending Review Auto-Generat ed Referral 10/31/2022 11/30/2023 1 1 * Diagnostic Procedure Only (Routine) - Pending Review Specialty Diagnoses / Procedures Referred By Madeline hamlin Referred To Contact [facility] Diagnoses Abnormal screening mammogram Procedures US BREAST LTD RIGHT US BREAST UNI REAL TIME WITH IMAGE LIMITED Kandice Mario APRN.[employer] [address] [place] [address] [facility] [address] [place] [address] Referral ID Status Reason Start Date Expiration Date Visits Requested Visits Authorized [id number] Pending Review Auto-Generat ed Referral 10/31/2022 11/30/2023 1 1 * Diagnostic Procedure Only (Routine) - Pending Review Specialty Diagnoses / Procedures Referred By Contac t Referred To Contact [facility] Diagnoses Abnormal screening mammogram Procedures HERMILA DIAGNOSTIC BILATERAL DIAGNOSTIC MAMMOGRAPHY COMPUTER-AIDED DETCJ Kandice Mario APRN.[employer] [address] [place] [address] Br [place] [address] Referral ID Status Reason Start Date Expiration Date Visits Requested Visits Authorized [id number] Pending Review Auto-Generat ed Referral 10/31/2022 11/30/2023 1 1 [facility] for referral (narrative)* Outpatient Procedure (Routine) - Pending Review Specialty Diagnoses / Procedures Referred By Contac t Referred To Contact [facility] Diagnoses Special screening for malignant neoplasms, colon Procedures COLONOSCOPY SCREENING COLONOSCOPY FLX DX W/COLLJ SPEC WHEN PFRMD Kandice Mario APRN.[employer] [address] [place] [address] [facility] [address] [place] [address] Referral ID Status Reason Start Date Expiration Date Visits Requested Visits Authorized [id number] Pending Review Auto-Generat ed Referral 11/15/2022 11/16/2023 1 1 * Consult, Test, Treat (Routine) - Pending Review Specialty Diagnoses / Procedures Referred By Contac t Referred To Contact Dermatology Diagnoses Skin lesion of left leg Procedures CONSULT TO DERMATOLOGY OFFICE/OUTPATIENT NEW HIGH MDM 60-74 MINUTES Kandice Mario APRN.CNP [address] [place] [address] Referral ID Status Reason Start Date Expiration Date Visits Requested Visits Authorized [id number] Pending Review PCP Requested Referral 11/15/2022 11/15/2023 1 1 [facility] for referral (narrative)* Diagnostic Procedure Only (Routine) - Pending Review Specialty Diagnoses / Procedures Referred By Contac t Referred To Contact [facility] Diagnoses Abnormal screening mammogram Procedures US BREAST LTD LEFT US BREAST UNI REAL TIME WITH IMAGE LIMITED Kandice Mario APRN.CNP [address] [place] [address] [facility] [address] [place] [address] Referral ID Status Reason Start Date Expiration Date Visits Requested Visits Authorized [id number] Pending Review Auto-Generat ed Referral 10/31/2022 11/30/2023 1 1 * Diagnostic Procedure Only (Routine) - Pending Review Specialty Diagnoses / Procedures Referred By Contac t Referred To Contact [facility] Diagnoses Abnormal screening mammogram Procedures US BREAST LTD RIGHT US BREAST UNI REAL TIME WITH IMAGE LIMITED Kandice Mario APRN.CNP [address] [place] [address] [facility] [address] [place] [address] Referral ID Status Reason Start Date Expiration Date Visits Requested Visits Authorized [id number] Pending Review Auto-Generat ed Referral 10/31/2022 11/30/2023 1 1 [facility] for referral (narrative)* Diagnostic Procedure Only (Routine) - Pending Review Specialty Diagnoses / Procedures Referred By Contac t Referred To Contact [facility] Diagnoses Screening mammogram for breast cancer Procedures HERMILA SCREENING SCREENING MAMMOGRAPHY BI 2-VIEW BREAST INC CAD Edward Martinez MD [address] [place] [address] [facility] Imaging [address] [place] [phone] Referral ID Status Reason Start Date Expiration Date Visits Requested Visits Authorized [id number] Pending Review Auto-Generat ed Referral 10/19/2022 11/18/2023 1 1 [facility] for referral (narrative)* Diagnostic Procedure Only (Routine) - Pending Review Specialty Diagnoses / Procedures Referred By Madeline hamlin Referred To Contact [facility] Diagnoses Encounter for screening mammogram for breast cancer Procedures HERMILA SCREENING W SANJUANA SCREENING DIGITAL BREAST TOMOSYNTHESIS BI SCREENING MAMMOGRAPHY BI 2-VIEW BREAST INC CAD Edward Martinez MD [address] [place] [id number] [facility] [address] [place] [phone] Referral ID Status Reason Start Date Expiration Date Visits Requested Visits Authorized [id number] Pending Review Auto-Generat ed Referral 01/17/2024 02/15/2025 1 1 [facility] for referral (narrative)* Diagnostic Procedure Only (Routine) - Closed Specialty Diagnoses / Procedures Referred By Madeline hamlin Referred To Contact [facility] Diagnoses Acute bilateral low back pain with right-sided sciatica Procedures XR LUMBAR GENERAL 3V AP/LAT/L5-S1 RADEX SPINE LUMBOSACRAL 2/3 VIEWS Edward Martinez MD [address] [place] [address] [place] [address] Referral ID Status Reason Start Date Expiration Date V isits Requested Visits Authorized [id number] Closed Auto-Generate d Referral 10/19/2022 11/18/2023 1 1 [facility] for referral (narrative)No reason for referral information availableWSt. Mary's Medical Center Work Phone: Reason for visit Narrative* Diagnostic Procedure Only (Routine) - Pending Review Specialty Diagnoses / Procedures Referred By Contac t Referred To Contact [facility] Diagnoses Screening mammogram for breast cancer Procedures HERMILA SCREENING SCREENING MAMMOGRAPHY BI 2-VIEW BREAST INC CAD Edward Martinez MD [address] [place] [address] [facility] [address] [place] [address] Referral ID Status Reason Start Date Expiration Date Visits Requested Visits Authorized [id number] Pending Review Auto-Generat ed Referral 10/19/2022 11/18/2023 1 1 [facility] for visit Narrative* Diagnostic Procedure Only (Routine) - Closed Specialty Diagnoses / Procedures Referred By Contac t Referred To Contact [facility] Diagnoses Abnormal screening mammogram Procedures HERMILA DIAGNOSTIC BILATERAL DIAGNOSTIC MAMMOGRAPHY COMPUTER-AIDED DETCJ BI Older, Kandice, SEWING TRIMMER.[employer] [address] [place] [address] [facility] [address] [place] [address] Referral ID Status Reason Start Date Expiration Date V isits Requested Visits Authorized [id number] Closed Auto-Generate d Referral 10/31/2022 11/30/2023 1 1 [facility] for visit Narrative* Diagnostic Procedure Only (Routine) - Closed Specialty Diagnoses / Procedures Referred By Madeline t Referred To Contact XR IMAGING Diagnoses Acute bilateral low back pain with right-sided sciatica Procedures XR LUMBAR GENERAL 3V AP/LAT/L5-S1 RADEX SPINE LUMBOSACRAL 2/3 VIEWS Edward Martinez MD [address] [place] [address] [place] [address] Referral ID Status Reason Start Date Expiration Date V isits Requested Visits Authorized [id number] Closed Auto-Generate d Referral 10/19/2022 11/18/2023 1 1 [facility] Summary Purpose Family History No Family History Records FoundNo Family History Records FoundNo Family History Records Found Advance Directives No Advanced Directives Records Found Advance Directive Response Recorded Date/ Time Advance Directives No June 7:48pm Living Will No Rex 23rd, 2 023 7:50am Power of Assisted Living Nursing Director No July 08, 2023 7:50am Advance Directive Response Recorded Date/ Time Advance Directives No June 8:48pm Living Will No July 08, 2 023 8:50am Power of Assisted Living Nursing Director No July 08, 2023 8:50am Advance Directive Response Recorded Date/ Time Advance Directives No June 8:48pm Advance Directive Response Recorded Date/ Time Living Will No October 17, 2024 3:20pm Do you have a Healthcare Power of Assisted Living Nursing Director? No October 17, 2024 3:20pm Advance Directives No June 8:48pm Chief Complaint and Reason for Visit Chief Complaint back Chief Complaint back 6 MONTH F/U (FROM [facility] 11/2022 MAMM/US) Chief Complaint back 6 MONTH F/U (FROM [facility] 11/2022 MAMM/US) CARPAL TUNNEL VS CERVICAL RADICULOPATHY CARPAL TUNNEL VS CERVICAL RADICULOPATHY Chief Complaint Admit Date Amb Documentation August 15, 2024 1 1:29am SCREENING September 10, 2024 11:44am Reason for Visit Admit Date Encounter for screening for malignant ne oplasm of colon October 22, 2024 7:08am Chief Complaint Admit Date SCREENING September 10, 2024 11:44am Lung cancer screening January 07, 2025 12 :06pm Reason for Visit Admit Date Encounter for screening for malignant ne oplasm of colon October 22, 2024 7:08am Encounter for screening for malignant ne oplasm of lung January 07, 2025 12:06pm History of tobacco use January 07, 2025 1 2:06pm Chief Complaint Admit Date SCREENING September 10, 2024 11:44am Lung cancer screening January 07, 2025 12 :06pm SCREENING January 07, 2025 1:00 pm LDCT- CC Patient January 08, 2025 12:3 5pm Reason for Visit Admit Date Encounter for screening for malignant ne oplasm of colon October 22, 2024 7:08am Encounter for screening for malignant ne oplasm of lung January 07, 2025 12:06pm History of tobacco use January 07, 2025 1 2:06pm Hypoxia January 08, 2025 12:3 5pm Mass of upper lobe of right lung January 082024 12:35pm Morning headache January 08, 2025 12:3 5pm Shortness of breath January 08, 2025 12:3 5pm Chief Complaint Admit Date Lung cancer screening January 07, 2025 12 :06pm SCREENING January 07, 2025 1:00 pm LDCT- CC Patient January 08, 2025 12:3 5pm Additional Source Comments INFORMATION SOURCE (unrecogn ized section and content) DATE CREATED AUTHOR 02/10/2020 [facility] DATE CREATED AUTHOR AUTHOR'S ORGANIZ ATION 01/19/2025 [facility] DATE CREATED AUTHOR AUTHOR'S ORGANIZ ATION 01/19/2025 [facility] Source Comments (unrecognize d section and content) In the event this informatio n is protected by the Federal Confidentiality of Alcohol and Drug Abuse Patient Records regulations: The Federal rules restrict any use of the information to criminally investigate or prosecute any alcohol or drug abuse patient.[facility] the event this information is protected by the Federal Confidentiality of Alcohol and Drug Abuse Patient Records regulations: The Federal rules restrict any use of the information to criminally investigate or prosecute any alcohol or drug abuse patient.[facility] the event this information is protected by the Federal Confidentiality of Alcohol and Drug Abuse Patient Records regulations: The Federal rules restrict any use of the information to criminally investigate or prosecute any alcohol or drug abuse patient.[facility] the event this information is protected by the Federal Confidentiality of Alcohol and Drug Abuse Patient Records regulations: The Federal rules restrict any use of the information to criminally investigate or prosecute any alcohol or drug abuse patient.[facility] the event this information is protected by the Federal Confidentiality of Alcohol and Drug Abuse Patient Records regulations: The Federal rules restrict any use of the information to criminally investigate or prosecute any alcohol or drug abuse patient.[facility] the event this information is protected by the Federal Confidentiality of Alcohol and Drug Abuse Patient Records regulations: The Federal rules restrict any use of the information to criminally investigate or prosecute any alcohol or drug abuse patient.[facility] the event this information is protected by the Federal Confidentiality of Alcohol and Drug Abuse Patient Records regulations: The Federal rules restrict any use of the information to criminally investigate or prosecute any alcohol or drug abuse patient.[facility] the event this information is protected by the Federal Confidentiality of Alcohol and Drug Abuse Patient Records regulations: The Federal rules restrict any use of the information to criminally investigate or prosecute any alcohol or drug abuse patient.[facility] the event this information is protected by the Federal Confidentiality of Alcohol and Drug Abuse Patient Records regulations: The Federal rules restrict any use of the information to criminally investigate or prosecute any alcohol or drug abuse patient.[facility] the event this information is protected by the Federal Confidentiality of Alcohol and Drug Abuse Patient Records regulations: The Federal rules restrict any use of the information to criminally investigate or prosecute any alcohol or drug abuse patient.[facility] the event this information is protected by the Federal Confidentiality of Alcohol and Drug Abuse Patient Records regulations: The Federal rules restrict any use of the information to criminally investigate or prosecute any alcohol or drug abuse patient.[facility] CampusIn the event this information is protected by the Federal Confidentiality of Alcohol and Drug Abuse Patient Records regulations: The Federal rules restrict any use of the information to criminally investigate or prosecute any alcohol or drug abuse patient.[facility] Reason for Visit (unrecogniz ed section and content) Reason Comments Pain, Back Lower back pain x 3 days-started after lifting Reason Comments Medication Request Reason Comments mammogram orders/US Reason Comments Physical Therapy Specialty Diagnoses / Procedures Referred By Contac t Referred To Contact INTERNAL MEDICINE Diagnoses BACK PAIN Procedures NEW PATIENT Self [address] [place] [address] Referral ID Status Reason Start Date Expiration Date Visits Requested Visits Authorized [id number] Authorized Patient Cleared - Qualified [id number] 10/17/2022 01/15/2023 99 99 Reason Comments 4 week follow up - back pain, lab result s Specialty Diagnoses / Procedures Referred By Contac t Referred To Contact INTERNAL MEDICINE Diagnoses BACK PAIN Procedures NEW PATIENT Self [address] [place] [address] Reason Comments Radiology US Specialty Diagnoses / Procedures Referred By Contac t Referred To Contact BR IMAGING Diagnoses Abnormal screening mammogram Procedures US BREAST LTD LEFT US BREAST UNI REAL TIME WITH IMAGE LIMITED Kandice Mario APRN.[facility] [address] [place] [address] [facility] [address] [place] [address] Referral ID Status Reason Start Date Expiration Date Visits Requested Visits Authorized [id number] Pending Review Auto-Generat ed Referral 10/31/2022 11/30/2023 1 1 Care Teams (unrecognized sec tion and content) Team Status: Active Member Role Status Dates Dr. Joann Live MD Primary Care Provider Active Team Status: Inactive Member Role Status Dates Dr. Joann Live MD Primary Care Provider Active Start: September 10, 2024 End: September 10, 2024 Dr. Joann Live MD Attending Provider Active Start: September 10, 2024 End: September 10, 2024 Dr. Joann Live MD Referring Provider Active Start: September 10, 2024 End: September 10, 2024 Team Status: Inactive Member Role Status Dates Dr. Joann Live MD Primary Care Provider Active Start: October 22, 2024 End: October 22, 2024 Dr. Joann Live MD Referring Provider Active Start: October 22, 2024 End: October 22, 2024 Dr. Justus Robertson MD Attending Provider Active Start: October 22, 2024 End: October 22, 2024 Team Status: Active Member Role Status Dates Dr. Joann Live MD Primary Care Provider Active Start: October 22, 2024 Dr. Joann Live MD Referring Provider Active Start: October 22, 2024 Dr. Justus Robertson MD Attending Provider Active Start: October 22, 2024 Dr. Justus Robertson MD Other Provider Active St art: October 22, 2024 Team Status: Inactive Member Role Status Dates Dr. Joann Live MD Primary Care Provider Active Start: January 07, 2025 End: January 07, 2025 Dr. Joann Live MD Referring Provider Active Start: January 07, 2025 End: January 07, 2025 Chayo Black MAINTENANCE WELDER, MAINTENANCE WELDER-C Attending Provider Active Start: January 07, 2025 End: January 07, 2025 Mushroom Grower Relationship Specialty Start Date End Date Edward Martinez MD [address] [place], [place] [id number] PCP - General Internal Medicine 10/19/22 Mushroom Grower Relationship Specialty Start Date End Date Edward Martinez MD [address] [place], [place] [id number] PCP - General Internal Medicine 10/19/22 Mushroom Grower Relationship Specialty Start Date End Date Edward Martinez MD [address] [place] [address] PCP - General Internal Medicine 10/19/22 Mushroom Grower Relationship Specialty Start Date End Date Edward Martinez MD [address] [place] [address] PCP - General Internal Medicine 10/19/22 Mushroom Grower Relationship Specialty Start Date End Date Edward Martinez MD [address] [place] [address] PCP - General Internal Medicine 10/19/22 Mushroom Grower Relationship Specialty Start Date End Date Edward Martinez MD [address] [place] [address] PCP - General Internal Medicine 10/19/22 Mushroom Grower Relationship Specialty Start Date End Date Edward Martinez MD [address] [place] [address] PCP - General Internal Medicine 10/19/22 Mushroom Grower Relationship Specialty Start Date End Date Edward Martinez MD [address] [place] [address] PCP - General Internal Medicine 10/19/22 Team Status: Active Member Role Status Dates [facility] Family Provider Active No Primary Care Physician Primary Care Provider Active Team Status: Inactive Member Role Status Dates Dr. Chirag Cuadra DO Emergency Provider Active No Primary Care Physician Primary Care Provider Active Team Status: Active Member Role Status Dates [facility] Family Provider Active Dr. Joann Live MD Primary Care Provider Active Team Status: Inactive Member Role Status Dates Dr. Chirag Cuadra DO Attending Provider, Emergency P prem Active No Primary Care Physician Primary Care Provider Active Team Status: Inactive Member Role Status Dates Dr. Joann Live MD Primary Care Provider, Attendin g Provider Active Team Status: Inactive Member Role Status Dates Dr. Joann Live MD Primary Care Prov ider, Attending Provider, Referring Provider Active Team Status: Active Member Role Status Dates Dr. Joann Live MD Primary Care Prov ider, Referring Provider, Other Provider Active Dr. Elinor Carrasco MD Attending Provider Active Mushroom Grower Relationship Specialty Start Date End Date Edward Martinez MD [address] [place] [address] PCP - General Internal Medicine 10/19/22 Team Status: Active Member Role Status Dates Dr. Joann Live MD Primary Care Provider Active Start: August 15, 2024 Shabnam Haynes Attending Provider Active Start: [facility] 2024 Team Status: Active Member Role Status Dates Dr. Joann Live MD Primary Care Provider Active Start: January 07, 2025 Chayo Black MAINTENANCE WELDER, MAINTENANCE WELDER-C Attending Provider Active Start: January 07, 2025 Chayo Black MAINTENANCE WELDER, MAINTENANCE WELDER-C Referring Provider Active Start: January 07, 2025 Team Status: Inactive Member Role Status Dates Dr. Joann Live MD Primary Care Provider Active Start: January 08, 2025 End: January 08, 2025 Dr. Joann Live MD Referring Provider Active Start: January 08, 2025 End: January 08, 2025 Negin Acevedo MAINTENANCE WELDER, MAINTENANCE WELDER-C Attending Provider Active Start: January 08, 2025 End: January 08, 2025 Team Status: Active Member Role/Relationship Status Dates Dr. Joann Live MD Primary Care Provider Active Team Status: Inactive Member Role/Relationship Status Dates Dr. Joann Live MD Primary Care Provider Active Start: October 22, 2024 End: October 22, 2024 Dr. Joann Live MD Referring Provider Active Start: October 22, 2024 End: October 22, 2024 Dr. Justus Robertson MD Attending Provider Active Start: October 22, 2024 End: October 22, 2024 Team Status: Active Member Role/Relationship Status Dates Dr. Joann Live MD Primary Care Provider Active Start: October 22, 2024 Dr. Joann Live MD Referring Provider Active Start: October 22, 2024 Dr. Justus Robertson MD Attending Provider Active Start: October 22, 2024 Dr. Justus Robertson MD Other Provider Active St art: October 22, 2024 Team Status: Inactive Member Role/Relationship Status Dates Dr. Joann Live MD Primary Care Provider Active Start: January 07, 2025 End: January 07, 2025 Dr. Joann Live MD Referring Provider Active Start: January 07, 2025 End: January 07, 2025 Chayo Black MAINTENANCE WELDER, MAINTENANCE WELDER-C Attending Provider Active Start: January 07, 2025 End: January 07, 2025 Team Status: Inactive Member Role/Relationship Status Dates Dr. Joann Live MD Primary Care Provider Active Start: January 07, 2025 End: January 07, 2025 Chayo Black MAINTENANCE WELDER, MAINTENANCE WELDER-C Attending Provider Active Start: January 07, 2025 End: January 07, 2025 Chayo Black MAINTENANCE WELDER, MAINTENANCE WELDER-C Referring Provider Active Start: January 07, 2025 End: January 07, 2025 Team Status: Inactive Member Role/Relationship Status Dates Dr. Joann Live MD Primary Care Provider Active Start: January 08, 2025 End: January 08, 2025 Dr. Joann Live MD Referring Provider Active Start: January 08, 2025 End: January 08, 2025 Negin Acevedo MAINTENANCE WELDER, MAINTENANCE WELDER-C Attending Provider Active Start: January 08, 2025 End: January 08, 2025 Team Status: Active Member Role/Relationship Status Dates Dr. Joann Live MD Primary Care Provider Active Start: January 08, 2025 Negin Acevedo MAINTENANCE WELDER, MAINTENANCE WELDER-C Attending Provider Active Start: January 08, 2025 Negin Acevedo MAINTENANCE WELDER, MAINTENANCE WELDER-C Referring Provider Active Start: January 08, 2025 Team Status: Inactive Member Role/Relationship Status Dates Dr. Joann Live MD Primary Care Provider Active Start: January 08, 2025 End: January 08, 2025 Negin Acevedo MAINTENANCE WELDER, MAINTENANCE WELDER-C Attending Provider Active Start: January 08, 2025 End: January 08, 2025 Negin Acevedo MAINTENANCE WELDER, MAINTENANCE WELDER-C Referring Provider Active Start: January 08, 2025 End: January 08, 2025 Mushroom Grower Relationship Specialty Start Date End Date Edward Martinez MD [address] [place] [address] PCP - General Internal Medicine 10/19/22 Kandice Mead, SANG.ESPERANZA [address] [place] [address] [employer] Internal Medicine 06/24/24 Goals (unrecognized section and content) Goals may be documented in a n alternate sectionGoals may be documented in an alternate sectionGoals may be documented in an alternate sectionGoals may be documented in an alternate sectionGoals may be documented in an alternate section FOR RECORDS PERTAINING TO PATIENTS WHO ARE [...] BE BASED ON THE PRIMARY CLINICAL RECORDS. [email or web address] provides no warranty or guarantee of the accuracy or completeness of information in this document.
--- OUTSIDE RECORDS SUMMARY | 2025-01-23 02:59 | XMS RPT_ITS | CCD ---
Demographics Address [address] [place] [address] Home Phone Mobile Phone Preferred Language en Marital Status Single Mormon Affiliation Unknown Race White Ethnic Group Not or Lati no Author Organization [facility] Care Team Providers Care 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 Name Role Phone Arriaga AUDIT PARTNER, Virginie E Unavailable Unavailable Arriaga AUDIT PARTNER, Virginie E Unavailable Unavailable Unavailable Primary Care [...] Joann Live MD Primary Care Provider Wayne MOLDING LINE OPERATOR-C, Chayo Attending Provider Wayne MOLDING LINE OPERATOR-C Chayo Referring Provider Kristina MOLDING LINE OPERATOR-CNegin Attending Provider Dr. Joann Live MD Primary Care Provider Dr. Joann Live MD Referring Provider Kristina MOLDING LINE OPERATOR-C, Negin Referring Provider [facility] ADMINISTRATIVE SALES ASSISTANT.PETROLEUM REFINERY LABORER, Kandice Grullon Unavailable Kristina MOLDING LINE OPERATOR, Negin Attending Unavailable Acevedo MOLDING LINE OPERATOR, Negin Referring Unavailable Miedel, Joann Primary Care Unavailable Acevedo MOLDING LINE OPERATOR, Negin Attending Unavailable Acevedo MOLDING LINE OPERATOR, Negin Referring Unavailable Miedel, Joann Primary Care Unavailable Acevedo MOLDING LINE OPERATOR, Negin Attending Unavailable Acevedo MOLDING LINE OPERATOR, Negin Referring Unavailable Miedel, Joann Primary Care Unavailable Wayne MOLDING LINE OPERATOR, Chayo Attending Unavailable Wayne MOLDING LINE OPERATOR, Chayo Referring Unavailable Miedel, Joann Primary Care Unavailable Acevedo MOLDING LINE OPERATOR, Negin Referring Unavailable Acevedo MOLDING LINE OPERATOR, Negin Attending Unavailable Miedel, Joann Primary Care Unavailable Miedel, Joann Primary Care Unavailable Miedel, Joann Attending Unavailable Miedel, Joann Referring Unavailable Miedel, Joann Primary Care Unavailable Justus Robertson Attending Unavailable Miedel, Joann Referring Unavailable Miedel, Joann Primary Care Unavailable Justus Robertson Consulting Unavailable Justus Robertson Attending Unavailable Miedel, Joann Referring Unavailable Miedel, Joann Primary Care Unavailable Shabnam Haynes Attending Unavailable Wayne MOLDING LINE OPERATOR, Chayo Attending Unavailable Miedel, Joann Referring Unavailable Miedel, Joann Primary Care Unavailable Kristina MOLDING LINE OPERATOR, Negin Attending Unavailable Miedel, Joann Referring Unavailable Miedel, Joann Primary Care Unavailable Allergies Allergy Classification Reported Allergen(s) Allergy Type Date of Onset Reaction(s) Facility (10 sources) Sulfamethoxazole Drug Allergy 3 Nausea/Vom/[facility] (10 sources) Trimethoprim Drug Allergy 3 Nausea/Vom/[facility] (1 source) Sulfamethoxazole Drug Allergy 5 [facility] (1 source) Trimethoprim Drug Allergy 5 [facility] Rep[facility] Medications Current Medications Medication Drug Class(es) Dates Sig (Normalized) Sig (Original) [id number] 200 actuat albuterol 0.09 mg/actuat metered dose [...] kenia th once daily. polyethylene glycol 3350 650774 mg / potassium chloride 2980 mg / sodium bicarbonate 6720 mg / sodium chloride 5840 mg / sodium sulfate 37289 mg powder for oral solution (1 source) [...] on above: Take 1 capsule by mo [facility] three times daily as needed for Cough. cetirizine hydrochloride 10 mg oral tablet (13 sources) Histamine-1 Receptor Antagonist Start : 01-20 ZYRTEC ALLERGY 10 MG CAPS take as directed CETIRIZINE HCL [id number] Virginie Arriaga LPN Start: 11-21-2015 take 1 capsule by mo [facility] once daily Cetirizine (Zyrtec) 10 MG capsule [...] HYCLATE 100 MG CAPS BID DOXYCYCLINE HYCLATE [id number] Virginie Arriaga LPN methocarbamol 500 mg oral tablet (2 sources) Muscle Relaxant Start: End: take 1 tablet by mouth every six hours as needed methocarbamol (ROBAXIN) 500 mg tablet Take 1 tablet by mouth every 6 hours as needed (Pain) for up to 3 days. 12 tablet 10/18/2022 10/21/2022 Comment on above: Take 1 tablet by [facility] every 6 hours as needed (Pain) for up to 3 days. MULTIPLE VITAMINS-MINERALS (2 sources) Start: DAILY MULTIVITAMIN CAPS take as directed MULTIPLE VITAMINS-MINERALS [id number] Virginie Arriaga LPN naproxen 500 mg oral [...] aPTT Coag (PPP) [Time] 25.1 s 24.1-36.2 [facility] International normalized rat io (INR) calculationOrdered By: Negin Acevedo on 01-08-2025 INR Coag (Bld) [Relative time] 0.9 {INR} [facility] Partial Thromboplast Timeon 01-08-2025 aPTT Coag (Bld) [Time] 25.1 s Normal 24.1-36.2 [facility] Comment on above: Performed By: #### L 300.4310, L100.1900, L300.3900 #### [facility] Laboratory [address] [place], [address] Platelet Counton 01-08-2025 Platelets (Bld) [#/Vol] 284 10*3/uL Normal 150-450 [facility] Comment on above: Performed By: #### L 300.4310, L100.1900, L300.3900 #### [facility] [address] [place], [address] Platelet countOrdered By: Jose Acevedo on 01-08-2025 Platelets (Bld) [#/Vol] 284 10*3/uL 150-450 [facility] Prothrombin Time w/INRon INR Coag (PPP) [Relative time] 0.9 {INR} Normal [facility] Comment on above: Performed By: #### L 300.4310, L100.1900, L300.3900 #### [facility] [address] [place], [address] PT Coag (PPP) [Time] 12.0 s Normal 11.7-14.9 [facility] Comment on above: Performed By: #### L 300.4310, L100.1900, L300.3900 #### [facility] [address] [place], [address] Prothrombin timeOrdered By: Negin Acevedo on 01-08-2025 PT Coag (PPP) [Time] 12.0 s 11.7-14.9 [facility] Pulmonary Visit Reporton Pulmonary Visit Report [facility] [place] [address] [place] [address] OFFICE VISIT Date of Service: 01/08/25 MR#: [id number] Acct: [id number] Name: ROSARIO WYATT DANIEL Rep #: [id number] : 1975 Provider: VADIM Acevedo Age/Sex: 49/F Location: [facility].PMW Status: Signed with Addenda ADDENDUM by Alda [...] Additional Comments: This note was generated with [employer] dictation software. It may contain incorrect words, [...] for any breathing problems. She has a 01-lwos-ddvy smoking history quitting completely January 2024. She smoked a minimum of a pack a day, often times a pack and half a day and admits that sometimes 2 packs/day. She is not currently on any maintenance inhalers. She has never performed a pulmonary function test. She states that back in 2013 doctor prescribed her (more content not included)... Normal [facility] Low Dose CT Lung Screeningon 01-07-[address] Lung Screening [facility] Imaging Services [address] [place], [place] [address] Low Dose CT Lung Screening MR#: [id number] Acct: [id number] Name: ROSARIO WYATT Rep #: [id number] : 1975 F 49 From: Queta Velez PCP: Dr. Joann Live MD Status: [facility] [address] Study: Low Dose CT Lung Screening Date of Exam: 01/07 Exam# [id number] Ordering Dr: Chayo Black NP MOLDING LINE OPERATOR -C PROCEDURE: LOW DOSE CT LUNG SCREENING 01/07/2025 REASON FOR EXAM: LUNG CANCER SCREENING TECHNIQUE: LOW DOSE CT LUNG SCREENING Coronal and Sagittal reconstruction series were provided. One or more dose reduction techniques were used (e.g., Automated exposure control, adjustment of the mA and/or kV according to patient size, use of iterative reconstruction technique). REFERENCE LINK: [employer] Lung-RADS RADIATION DOSE SUMMARY: DLP: 59 mGycm [...] cm within the right anna. Reading Location: [id number] CC: VADIM Black; Dr. Joann Live MD Real Estate Lawyer: Signed Normal [facility] Oncology Visit Reporton 12-16 Oncology Visit Report [facility] [place] [address] OFFICE VISIT Date of Service: 01/07/25 1234 MR#: [id number] Acct: [id number] Name: EDMUNDOROSARIO Rep #: [id number] : 1975 From: Chayo Black NP MOLDING LINE OPERATOR RobynC Age/Sex: 49/F Location: [facility] Status: Signed HPI HPI Reviewed [...] (Updated 01/07/25 @ 12:51 by Chayo Black MOLDING LINE OPERATOR, MOLDING LINE OPERATOR-C) History of tobacco use Encounter for screening [...] cm spi (more content not included)... Normal [facility] Colonoscopy Reporton 025 Colonoscopy Report [facility] Medical Records Department [address] [place] [address] Colonoscopy Report MR#: [id number] Acct: [id number] Name: ROSARIO WYATT Rep #: [id number] : 1975 48 From: Justus Robertson MD PCP: Dr. Joann Live MD Status:[facility] Patient Name: Rosario Wyatt Procedure Date: 10/22/2024 [...] present medications. Procedure Code(s): --- Professional --- 61591, Colonoscopy, flexible; diagnostic, including collection of specimen(s) by brushing or washing, when performed (separate procedure) Diagnosis Code(s): --- Professional --- Z12.11, Encounter for screening for malignant neoplasm of colon K57.30, Diverticulosis of large intestine without perforation or abscess without bleeding K64.8, Other hemorrhoids CPT copyright 2021 [employer]. All rights reserved. The codes documented in this report are preliminary and upon surgical coder review may be revised to meet current compliance requirements. Justus Robertson MD 10/22/2024 9:23:43 AM This report has been signed electronically. Number of Addenda: 0 Note Initiated On: 10/22/2024 8:46 AM 10/22/24 0924 Date Justus Robertson MD Cosigner Signature: Date (if indicated) CC: Dr. Joann Live MD; Dr. Justus Robertson MD Date Dictated: 10/22/24 0846 Date Transcribed: Real Estate Lawyer: ERWIN Signed [facility] MR/POSTOP.Nile 10-22-2024 MR/POSTOP.ANE [facility] Medical Records Department [address] [place] [address] Anesthesia Postop Eval I 10/22/24 0923 MR#: [id number] Acct: [id number] Name: ROSARIO WYATT Rep #: [id number] : 1975 48 From: Dean Marshall PCP: Dr. Joann Live MD Status:[facility] Y Race: C Location: [place] [address] Anesthesia: Postop Eval I Current Vital Signs [...] Dean Shipley Signature: Date CC: Signed Normal [facility] MR/[id number] 10-22-2024 /POST[address] Medical Records Department [address] [place] [address] Anesthesia Postop Eval II 10/22/24 1229 MR#: [id number] Acct: [id number] Name: JOSE E WYATTRA SANCHEZ Rep #: [id number] : 1975 48 From: Wolfgang Roberts MD PCP: Dr. Joann Live MD Status:[facility] Y Race: C Location: EN Anesthesia Postop [...] MD Cosigner Signature: Date CC: Signed Normal [facility] Breast imaging reportOrdered By: Valeria Mccord on 09-10-2024 Study report [facility] Imaging Services [address] [place] [address] [id number] SCRN MAMM (CAD)W/SANJUANA BILAT MR#: [id number] Acct: [id number] Name: ROSARIO WYATT Rep #: [id number] : 1975 F 48 From: Hodan Mccord MD PCP: Dr. Joann Live MD Status: REG CLI Study:SCRN MAMM (CAD)W/SANJUANA BILAT Date of Exa m: 09/10/24 Exam# [id number] Ordering Dr: Endy Live MD PROCEDURE: SCRN [...] of the results by letter. Reading Location: [facility] CC: Dr. Joann Live MD ~ Real Estate Lawyer: Signed [facility] SCRN MAMM (CAD)W/SANJUANA BILATo n 09-10-2024 SCRN MAMM (CAD)W/SANJUANA BILAT [facility] Imaging Services [address] [place] [address] [id number] SCRN MAMM (CAD)W/SANJUANA BILAT MR#: [id number] Acct: [id number] Name: ROSARIO WYATT Rep #: [id number] : 1975 F 48 From: Valeria Mccord MD PCP: Dr. Joann Live MD Status: [facility] CLI Study: SCRN MAMM (CAD)W/SANJUANA BILAT Date of Exam: 08/18 12/08 Exam# [id number] Ordering Dr: Joann Live MD PROCEDURE: SCRN [...] of the results by letter. Reading Location: [facility] CC: Dr. Joann Live MD Real Estate Lawyer: Signed Normal [facility] Absolute lymphocyte countOrd ered By: Joann Live on 08-08-2023 Lymphocytes Auto (Unsp spec) [#/Vol] 2.96 10*3/uL 0.83-4.51 [facility] Automated lymphocyte count a s percentage of total leukocytesOrdered By: Joann Live on 08-08-2023 Lymphocytes/100 WBC Auto (Unsp spec) 39.3 % 19-41 [facility] Basophil percentageOrdered B y: Joann Live on 08-08-2023 Basophils/100 WBC (Bld) 0.4 % 0-1 [facility] Bilirubin [Mass/Vol] 0.30 mg/dL 0.20-1.00 [facility] Comment on above: For patients on eltr ombopag therapy, use of Dimension [place] TBIL is not recommended. Chloride [Moles/Vol] 110 mmol/L 98-107 [facility] Eosinophils/100 WBC (Bld) 1.3 % 0-5 [facility] Glucose [Mass/Vol] 92 mg/dL 74-106 [facility] Hemoglobin (Bld) [Mass/Vol] 13.3 g/dL 12.0-15.0 [facility] Monocytes/100 WBC (Bld) 5.8 % 0-10 [facility] Neutrophils (Bld) [#/Vol] 4.0 10*3/uL 2.0-7.7 [facility] Neutrophils/100 WBC (Bld) 52.9 % 47-70 [facility] Potassium [Moles/Vol] 3.7 mmol/L 3.5-5.1 [facility] Protein [Mass/Vol] 7.7 g/dL 6.4-8.2 [facility] Sodium [Moles/Vol] 143 mmol/L 136-145 [facility] WBC (Bld) [#/Vol] 7.5 10*3/uL 4.4-11.0 [facility] Determination of erythrocyte mean corpuscular volume (MCV)Ordered By: Joann Live on 08-08-2023 MCV (RBC) [Entitic vol] 94.8 fL 81-99 [facility] Erythrocyte distribution wid th ratioOrdered By: [facility] Hospitalmarjan on 08-08-2023 Erythrocyte distribution width (RBC) [Ratio] 13.2 % 11.6-14.6 [facility] Erythrocyte distribution wid th standard deviationOrdered By: Bayside Maria T on 08-08-2023 Erythrocyte distribution width (RBC) [Entitic vol] 45.8 fL 35.1-43.9 [facility] Hematocrit Auto (Bld) [Volum e fraction]Ordered By: Joann Live on 08-08-2023 Hematocrit (Bld) [Volume fraction] 41.7 % 37-47 [facility] Immature granulocytes/100 WB C Auto (Bld)Ordered By: Joann Maria T on 08-08-2023 Immature granulocytes/100 WBC (Bld) 0.300 % 0.0-0.9 [facility] Comment on above: IG% - Immature Granu locytes (promyelocytes, myelocytes and metamyelocytes) > 1% indicates that a LEFT SHIFT is Present. Laboratory - Chemistry and C hemistry - challengeOrdered By: Joann Live on 08-08-2023 Albumin/Globulin [Mass ratio] 1.3 {ratio} 0.9-2.4 [facility] ALP [Catalytic activity/Vol] 84 U/L 45-117 [facility] ALT [Catalytic activity/Vol] 31 U/L 13-56 [facility] CO2 [Moles/Vol] 29.0 mmol/L 21.0-32.0 [facility] Globulin (S) [Mass/Vol] 3.4 g/dL 2.2-4.2 [facility] Urea nitrogen/Creatinine [Mass ratio] 27.1 mg/mg 10-20 [facility] Laboratory - Hematology and Cell countsOrdered By: Joann Live on 08-08-2023 MCH (RBC) [Entitic mass] 30.2 pg 27.0-32.0 [facility] MCHC (RBC) [Mass/Vol] 31.9 g/dL 32-36 [facility] Nucleated RBC/100 WBC (Bld) [Ratio] 0 % 0-5 [facility] Platelets (Bld) [#/Vol] 267 10*3/uL 150-450 [facility] No Panel InformationOrdered By: Joann Live on 08-08-2023 Estimated GFR (MDRD) Amer 140 mL/min >60 [facility] Comment on above: GFR Calc Estimated GFR (MDRD) Non-Af Amer 115 mL/min >60 [facility] Comment on above: Non- GFR Calc Platelet mean volume Aneudy-Ec ker (Bld) [Entitic vol]Ordered By: Joann Live on 08-08-2023 Platelet mean volume (Bld) [Entitic vol] 10.6 fL 6.2-12.0 [facility] RBC Auto (Bld) [#/Vol]Ordere d By: Joann Live on 08-08-2023 RBC (Bld) [#/Vol] 4.40 10*6/uL 4.2-5.4 [facility] Serum or plasma calcium radha urement (mass/volume)Ordered By: Joann Live on 08-08-2023 Calcium [Mass/Vol] 9.4 mg/dL 8.5-10.1 [facility] Serum or plasma creatinine m easurement (mass/volume)Ordered By: Joann Live on 08-08-2023 Creatinine [Mass/Vol] 0.59 mg/dL 0.55-1.02 [facility] Comment on above: The validity of the calculated GFR & GFRAA in patients over 70 years has not been determined. Clinical correlation is essential. Serum or plasma thyroid stim ulating hormone (TSH) measurement (units/volume)Ordered By: Joann Live on 08-08-2023 TSH Qn 1.15 uIU/mL 0.358-3.74 [facility] Serum or plasma urea nitroge n measurement (mass/volume)Ordered By: Joann Live on 08-08-2023 Urea nitrogen [Mass/Vol] 16 mg/dL 7-18 [facility] Thin prep Papanicolaou smear with manual screeningOrdered By: Joann Live on 08-08-2023 Thin prep Papanicolaou smear with manual screening 4.3 g/dL 3.2-5.0 [facility] Thin prep Papanicolaou smear with manual screening 17 U/L 15-37 [facility] Thin prep Papanicolaou smear with manual screening 4 5-15 [facility] HERMILA DIAG W SANJUANA BILATERALon 12-06-2022 [facility] No Panel Informationon 12-06 [facility] HERMILA SCREENINGon 10-25-2022 [facility] XR Lumbar spine 3 Viewson IMPRESSION: Lumbar spine degenerative changes with L5-S1 disc space narrowing. Real Estate Lawyer: JEANNIE Transcribe Date/Time: Oct 20 2022 2:11P Dictated by : JEANA YU MD This examination was interpreted and the report reviewed and electronically signed by: JEANA YU MD on Oct 20 2022 2:15PM [facility] DIVISION OF RADIOLOGY * * [...] spine are presented. FINDINGS: There are five rdv-yzq-rvzpgox lumbar vertebrae. No fracture or subluxations are noted. L5-S1 disc space narrowing is demonstrated, with endplate sclerosis. There is mild osteophyte formation. DIVISION OF RADIOLOGY Provider, [facility] [place] - 10/20/2022 * * *Final Report* * [...] spine are presented. FINDINGS: There are five omu-jbk-lclaoww lumbar vertebrae. No fracture or subluxations are noted. L5-S1 disc space narrowing is demonstrated, with endplate sclerosis. There is mild osteophyte formation. IMPRESSION IMPRESSION: Lumbar spine degenerative changes with L5-S1 disc space narrowing. Real Estate Lawyer: PSCB Transcribe Date/Time: Oct 20 2022 2:11P Dictated by : JEANA YU MD This examination was interpreted and the report reviewed and electronically signed by: JEANA YU MD on Oct 20 2022 2:15PM EST [facility] XR Lumbar spine 3 ViewsOrder ed By: [facility] Provider on 10-20-2022 [facility] XR Lumbar spine 3 Viewson Radiology Study observation (narrative) [facility] PROGRESSon 02-10-2020 PROGRESS HNO ID: [id number] Author: Sherry Loco) Areli Service: ? Author [...] Spent: 7 min Sherry Singleton APRN.ESPERANZA Normal [facility] Office [facility]: [facility]:on 017 Documentation of current medications (procedure) Done Invalid Interpretation Code [facility] Work Phone: Fall risk assessment No Invalid Interpretation Code [facility] Work Phone: Vital Signs Date Time Vital Sign Value Performing Clinician Faci lity 01-08-2025 08:00-0400 Body height 167.[address] Joann Live MD Work Phone: [facility] 01-08-2025 08:00-0400 Body mass index (BMI) [Ratio] 24.5 kg/m2 Dr. Joann Live MD Work Phone: [facility] 01-08-2025 08:00-0400 Body temperature 97.4 [degF] Dr. Joann Live MD Work Phone: [facility] 01-08-2025 08:00-0400 Body weight 68.[address] Joann Live MD Work Phone: [facility] 01-08-2025 08:00-0400 Diastolic blood pressure 85 mm[Hg] Dr. Joann Live MD Work Phone: [facility] 01-08-2025 08:00-0400 Heart rate 68 /min Dr. Joann Live MD Work Phone: [facility] 01-08-2025 08:00-0400 Respiratory rate 18 /min Dr. Joann Live MD Work Phone: [facility] 01-08-2025 08:00-0400 SaO2% (BldA) [Mass fraction] 96 % Dr. Joann Live MD Work Phone: [facility] 01-08-2025 08:00-0400 Systolic blood pressure 127 mm[Hg] Dr. Joann Live MD Work Phone: [facility] 01-07-2025 12:40-0400 Body height 167.[address] Joann Live MD Work Phone: [facility] 01-07-2025 12:40-0400 Body mass index (BMI) [Ratio] 24.5 kg/m2 Dr. Joann Live MD Work Phone: [facility] 01-07-2025 12:40-0400 Body temperature 98.6 [degF] Dr. Joann Live MD Work Phone: [facility] 01-07-2025 12:40-0400 Body weight 68.[address] Joann Live MD Work Phone: [facility] 01-07-2025 12:40-0400 Diastolic blood pressure 76 mm[Hg] Dr. Joann Live MD Work Phone: [facility] 01-07-2025 12:40-0400 Heart rate 86 /min Dr. Joann Live MD Work Phone: [facility] 01-07-2025 12:40-0400 Respiratory rate 18 /min Dr. Joann Live MD Work Phone: [facility] 01-07-2025 12:40-0400 SaO2% (BldA) [Mass fraction] 96 % Dr. Joann Live MD Work Phone: [facility] 01-07-2025 12:40-0400 Systolic blood pressure 112 mm[Hg] Dr. Joann Live MD Work Phone: [facility] 10-22-2024 09:35-0400 Diastolic blood pressure 69 mm[Hg] Dr. Joann Live MD Work Phone: [facility] 10-22-2024 09:35-0400 Systolic blood pressure 98 mm[Hg] Dr. Joann Live MD Work Phone: [facility] 10-22-2024 09:30-0400 Body temperature 96.9 [degF] Dr. Joann Live MD Work Phone: [facility] 10-22-2024 09:30-0400 Heart rate 74 /min Dr. Joann Live MD Work Phone: [facility] 10-22-2024 09:30-0400 Respiratory rate 16 /min Dr. Joann Live MD Work Phone: [facility] 10-22-2024 09:30-0400 SaO2% (BldA) [Mass fraction] 96 % Dr. Joann Live MD Work Phone: [facility] 10-22-2024 07:31-0400 Body height 167.[address] Joann Live MD Work Phone: [facility] 10-22-2024 07:31-0400 Body mass index (BMI) [Ratio] 23.8 kg/m2 Dr. Joann Live MD Work Phone: [facility] 10-22-2024 07:31-0400 Body weight [address] Joann Live MD Work Phone: [facility] 08-15-2024 11:47-0500 Body height 167.[address] Joann Live MD Work Phone: [facility] 08-15-2024 11:47-0500 Body mass index (BMI) [Ratio] 24.2 kg/m2 Dr. Joann Live MD Work Phone: [facility] 08-15-2024 11:47-0500 Body weight 68.[address] Joann Live MD Work Phone: [facility] [facility] 07-08-2023 09:15-0500 Diastolic blood pressure 79 mm[Hg] [facility] 07-08-2023 09:15-0500 Heart rate 92 /min [facility] 07-08-2023 09:15-0500 Respiratory rate 16 /min [facility] 07-08-2023 09:15-0500 SaO2% (BldA) [Mass fraction] 100 % [facility] 07-08-2023 09:15-0500 Systolic blood pressure 108 mm[Hg] [facility] 07-08-2023 07:40-0500 Body height 167.64 cm [facility] 07-08-2023 07:40-0500 Body mass index (BMI) [Ratio] 23.3 kg/m2 [facility] 07-08-2023 07:40-0500 Body temperature 97.3 [degF] [facility] 07-08-2023 07:40-0500 Body weight 65.45 kg [facility] 11-15-2022 09:06-0400 Body weight 67.13 kg Kandice Older ADMINISTRATIVE SALES ASSISTANT.PETROLEUM REFINERY LABORER Work Phone: [facility] 11-15-2022 09:06-0400 Diastolic blood pressure 76 mm[Hg] Kandice Older ADMINISTRATIVE SALES ASSISTANT.PETROLEUM REFINERY LABORER Work Phone: [facility] 11-15-2022 09:06-0400 Heart rate 86 /min Kandice Older ADMINISTRATIVE SALES ASSISTANT.PETROLEUM REFINERY LABORER Work Phone: [facility] 11-15-2022 09:06-0400 Respiratory rate 14 /min Kandice Older ADMINISTRATIVE SALES ASSISTANT.PETROLEUM REFINERY LABORER Work Phone: [facility] 11-15-2022 09:06-0400 Systolic blood pressure 112 mm[Hg] Kandice Older ADMINISTRATIVE SALES ASSISTANT.PETROLEUM REFINERY LABORER Work Phone: [facility] 10-18-2022 07:19-0400 Body temperature 97.5 [degF] Krislyn Aberegg PA Work Phone: [facility] 10-18-2022 07:19-0400 Body weight 68.13 kg Krislyn Aberegg PA Work Phone: [facility] 10-18-2022 07:19-0400 Diastolic blood pressure 78 mm[Hg] Krislyn Aberegg PA Work Phone: [facility] 10-18-2022 07:19-0400 Heart rate 83 /min Krislyn Aberegg PA Work Phone: [facility] 10-18-2022 07:19-0400 Respiratory rate 16 /min Krislyn Aberegg PA Work Phone: [facility] 10-18-2022 07:19-0400 SaO2% (BldA) [Mass fraction] 99 % Kan MACIEL Work Phone: [facility] 10-18-2022 07:19-0400 Systolic blood pressure 122 mm[Hg] Kan MACIEL Work Phone: [facility] 01-20-2017 09:01-0400 BMI (Body Mass Index) 23.5 kg/m2 [facility] Work Phone: 01-20-2017 09:01-0400 Body Temperature 98.6 [degF] Virginie Arriaga [facility] Work Phone: 01-20-2017 09:01-0400 BP Diastolic 80 mm[Hg] Virginie [facility] Work Phone: 01-20-2017 09:01-0400 BP Systolic 140 mm[Hg] Virginie Arriaga [facility] Work Phone: 01-20-2017 09:01-0400 Height 167.64 cm Virginie Arriaga AUDIT PARTNER [facility] Work Phone: 01-20-2017 09:01-0400 Pulse (Heart Rate) 83 /min Virginie Arriaga [facility] Work Phone: 01-20-2017 09:01-0400 Respiratory Rate 16 /min Virginie Arriaga [facility] Work Phone: 01-20-2017 09:01-0400 Weight 66.04 kg Virginie Arriaga [facility] Work Phone: Encounters Encounter Date Encounter Type Care Provider Facility Start: 01-24-2025 ambulatory Negin Acevedo MOLDING LINE OPERATOR Fac ility:[facility] Start: 01-23-2025 ambulatory Negin Acevedo MOLDING LINE OPERATOR Fac ility:[facility] Start: 01-21-2025 ambulatory Negin Acevedo MOLDING LINE OPERATOR Fac ility:[facility] Start: 01-08-2025 End: 01-08-[address] Joann Live MD Work Phone: [facility] Start: 01-08-2025 End: 01-08-2025 Patient encounter procedure Negin Acevedo MOLDING LINE OPERATOR-C -[facility] Start: 01-08-2025 End: 01-08-2025 Patient encounter procedure Negin Acevedo MOLDING LINE OPERATOR-C -[facility] Work Phone: Start: 01-08-2025 End: 01-08-[address] Joann Live MD Work Phone: [facility] Work Phone: Start: 01-07-2025 End: 01-07-2025 Patient encounter procedure Chayo Black MOLDING LINE OPERATOR-C -[facility] Work Phone: Start: 01-07-2025 End: 01-08-[address] Joann Live MD Work Phone: [facility] Work Phone: Start: 01-07-2025 End: 01-07-2025 ambulatory Chayo Black MOLDING LINE OPERATOR Facility:[facility] Start: 12-17-2024 End: 01-17-2025 ambulatory Edward Martinez MD Work Phone: Internal Medicine [place] Start: 10-22-2024 ambulatory Joann Live Facility: [facility] Start: 10-22-2024 Non-patient / Non-visit Dr. Justus Robertson MD -[facility] Start: 10-22-2024 End: 10-22-2024 Admission to same day surgery center Dr. Justus Robertson MD -Endoscopy Work Phone: Start: 10-22-2024 End: 10-22-[address] Joann Live MD Work Phone: [facility] Work Phone: Start: 09-10-2024 End: 09-10-[address] Joann Live MD Work Phone: [facility] Work Phone: Start: 09-10-2024 End: 09-10-[address] Joann Live MD -Outpatient Breast Imaging Work Phone: Start: 09-10-2024 End: 09-10-2024 ambulatory [facility] Facility:[facility] Start: 08-15-2024 Non-patient / Non-visit Dr. Jose Live MD Work Phone: -[facility] Work Phone: Start: 08-15-2024 ambulatory [facility] Facility: [facility] Start: 01-17-2024 ambulatory Edward sánchez MD Work Phone: Internal Medicine [place] [address] Start: 09-20-2023 Non-patient / Non-visit Dr. Jose Live Work Phone: [facility] Start: 09-20-2023 End: 09-20-[address] Joann Live Work Phone: [facility] Work Phone: Start: 09-20-2023 End: 09-20-[address] Joann Live Work Phone: [facility]-Pulmonary Services/Neurology Work Phone: Start: 08-28-2023 End: 08-28-2023 ambulatory [facility] Work Phone: Start: 08-28-2023 End: 08-28-2023 Patient encounter procedure [facility] Ultrasound Work Phone: Start: 08-08-2023 End: 08-08-2023 ambulatory [facility] Work Phone: Start: 08-08-2023 End: 08-08-2023 Patient encounter procedure [facility]-Christelle Saeed [facility] Start: 07-08-2023 End: 07-08-2023 Emergency department patient visit [facility]-Emergency Department Work Phone: Start: 12-06-2022 End: 12-06-2022 Subsequent hospital visit by physician [facility] Work Phone: Radiology Comment on above: Abnormal screening m ammogram [R92.8] Start: 11-15-2022 End: 11-15-2022 Patient encounter procedure Kandice Mario ADMINISTRATIVE SALES ASSISTANT.PETROLEUM REFINERY LABORER Work Phone: [facility] Comment on above: Skin lesion of left leg (Primary Dx); Acute back pain with sciatica, right; Elevated liver enzymes; Special screening for malignant neoplasms, colon; Encounter for immunization Start: 11-08-2022 End: 11-08-2022 ambulatory Ton Golias PT [facility] Comment on above: Acute back pain with sciatica, right (Primary Dx) Start: 10-31-2022 Telephone encounter Edward gutierrez MD Work Phone: [facility] [place] Comment on above: mammogram orders/US Start: 10-27-2022 Telephone encounter Edward gutierrez MD Work Phone: [facility] Comment on above: Medication Request Start: 10-26-2022 Documentation procedure Mammog ana Coordinator [facility] Start: 10-26-2022 Letter encounter Mammography Coordinator [facility] Department Start: 10-25-2022 End: 10-25-2022 Subsequent hospital visit by physician [facility] Comment on above: Screening mammogram for breast cancer [Z12.31] Start: 10-19-2022 End: 10-19-2022 Subsequent hospital visit by physician [facility] Work Phone: Radiology Comment on above: Acute bilateral low back pain with right-sided sciatica [M54.41] Start: 10-18-2022 End: 10-18-2022 Patient encounter procedure Kan MACIEL Work Phone: [facility] Comment on above: Acute midline [...] t berenice with image limited Kandice Older ADMINISTRATIVE SALES ASSISTANT.PETROLEUM REFINERY LABORER Work Phone: Start: 12-06-2022 Digital breast tomos ynthesis bilateral Kandice Older ADMINISTRATIVE SALES ASSISTANT.PETROLEUM REFINERY LABORER Work Phone: Start: 10-25-2022 Lipid 1996 panel - S maxine or Plasma [facility] 1 Work Phone: Start: 10-25-2022 End: 10-25-2022 Mammography Edward Velez Work Phone: Start: 10-19-2022 Radex spine lumbosac ral 2/3 views Edward Martinez MD Work Phone: Start: 07-31-2019 Mammography Kan egan PA Work Phone: Plan of Treatment Date Care Activity Detail Author Start: 11-15-2032 Urine microalbumin profile [facility] Start: 10-26-2027 Lipid 1996 panel - S maxine or Plasma Lipid Screening [facility] Start: 10-26-2027 Lipid panel Lipid Screening [facility] Start: 10-26-2027 LIPID SCREEN LIPID SCREEN [facility] Start: 10-25-2025 DIABETES SCREEN [facility]CREEN [facility] Start: 10-25-2025 Diabetes Screening Diabetes Screenin g [facility] Start: 03-17-2025 Influenza vaccination Influenz a Vaccine (Season Ended) [facility] Start: 01-24-2025 Continuous pulse oximetry [facility] Start: 01-23-2025 Walking distance 6 minutes [facility] Start: 01-21-2025 Measurement of respiratory function [facility] Start: 2024 Shingrix Vaccine (1 of 2) Shingrix Vaccine (1 of 2) [facility] Start: 10-22-2024 Colonoscopy flx dx w/collj spec when pfrmd DIAGNOSTIC COLONOSCOPY [facility] Start: 10-22-2024 Patient discharge [facility] Start: 03-17-2024 Covid-19 Vaccine () Covid-19 Vaccine () [facility] Start: 03-17-2024 Influenza vaccination Influenza Vacc ine (#1) [facility] Start: 12-07-2023 Mammography Mammogram Screening [facility] Start: 12-07-2023 Screening for malign ant neoplasm of breast Mammogram Screening [facility] Start: 10-26-2023 Mammography MAMMOGRAM [facility] Start: 10-20-2023 COVID-19 VACCINE (3 - Booster for Pfizer series) COVID-19 VACCINE (3 - Booster for Pfizer series) [facility] Comment on above: Postponed from 01/16 (Declined at this time) Start: 07-17-2023 Behavioral Health Screening Behavioral Health Screening [facility] Start: 07-08-2023 [facility] Start: 07-08-2023 Radiography of thora cic spine Thoracic Spine 3 Views [facility] Start: 07-08-2023 X-ray of cervical spine Cerv Spine 2 or 3 Views [facility] Start: 07-08-2023 XR Cervical spine 2 or 3 Views [facility] Start: 07-08-2023 XR Thoracic spine 3 Views [facility] Start: 05-18-2023 End: 07-18-2023 Comprehensive metabolic 2000 panel - Serum or Plasma COMP METABOLIC PANEL Lab Routine Elevated liver enzymes Expected: 05/18/2023 (Approximate), Expires: 07/18/2023 [facility] Work Phone: Comment on above: Expected: 05/18/2023 (Approximate), Expires: 07/18/2023 Start: 03-17-2023 Covid-19 Vaccine () Covid-19 Vaccine () [facility] Start: 03-17-2023 Influenza vaccination C [facility] Start: 07-17-2022 DEPRESSION ASSESSMENT DEPRESSION ASS ESSMENT [facility] Start: 01-29-2021 LIPID SCREEN LIPID SCREEN [facility] Start: 01-16-2021 COVID-19 VACCINE (3 - Booster for Pfizer series) COVID-19 VACCINE (3 - Booster for Pfizer series) [facility] Start: 07-31-2020 Mammography MAMMOGRAM [facility] Start: 11-27-2019 COLOGUARD (FIT-DNA) COLOGUARD (FIT-D NA) [facility] Start: 11-27-2019 Colonoscopy COLONOSCOPY [facility] Start: 11-27-2019 COLORECTAL CANCER SCREENING COLORECTAL CANCER SCREENING [facility] Start: 11-27-[address] COLONOGRAPHY [facility] Start: 11-27-2019 DIABETES SCREEN DIABETES SCREEN [facility] Start: 11-27-2019 FECAL OCCULT BLOOD FECAL OCCULT BLOO D [facility] Start: 11-27-2019 Screening for malign ant neoplasm of colon [facility] Start: 11-27-2019 SIGMOIDOSCOPY SIGMOIDOSCOPY [facility] Start: 01-20-2017 End: 01-20-2017 Appointment Appointment [facility] Work Phone: Start: 12-30-2016 PNEUMOCOCCAL (2 - PCV) PNEUMOCOCCAL (2 - PCV) [facility] Start: 1993 Hepatitis B Vaccine (1 of 3 - 19+ 3-dose series) Hepatitis B Vaccine (1 of 3 - 19+ 3-dose series) [facility] Start: 1993 Urine microalbumin profile DTAP,TDAP,TD (1 - Tdap) [facility] Start: 1992 Anxiety Screening Anxiety Screening [facility] Start: 1992 Depression Screening Depression Scre ening [facility] Start: 1992 HEPATITIS C SCREENING HEPATITIS C SC REENING [facility] Start: 1992 HIV SCREENING HIV SCREENING [facility] Start: 1974 HEPATITIS B (1 of 3 - 3-dose series) HEPATITIS B (1 of 3 - 3-dose series) [facility] Start: 1974 Hepatitis B Vaccine (1 of 3 - 3-dose series) Hepatitis B Vaccine (1 of 3 - 3-dose series) [facility] Aafrw-6-hlynevgitzy measurement [facility] Colonoscopy [facility] Continuous pulse oximetry [facility] CT Chest [facility] End: 02-15-2025 DBT Breast - bilateral screening HERMILA SCREENING W [facility] Radiology Routine Encounter for screening mammogram for breast cancer 1 Occurrences starting 01/17/2024 until 02/15/2025 [facility] Work Phone: Comment on above: 1 Occurrences starti ng 01/17/2024 until 02/15/2025 End: 01-16-2026 DBT Breast - bilateral screening HERMILA SCREENING W [facility] Radiology Routine Encounter for screening mammogram for breast cancer 1 Occurrences starting 12/17/2024 until 01/16/2026 [facility] Work Phone: Comment on above: 1 Occurrences starti ng 12/17/2024 until 01/16/2026 End: 11-30-2023 HERMILA DIAGNOSTIC BILATERAL HERMILA DIAGNOSTIC BILATERAL Radiology Routine Abnormal screening mammogram 1 Occurrences starting 10/31/2022 until 11/30/2023 [facility] Work Phone: Comment on above: 1 Occurrences starti ng 10/31/2022 until 11/30/2023 Partial thromboplast in time, activated [facility] Patient Education Cervical Radic ulopathy ED Neck Spasm, No Trauma [facility] Work Phone: Patient referral [facility] Work Phone: Platelets [#/volume] in Blood [facility] Prothrombin time [facility] End: 11-16-2023 Screening colonoscopy COLONOSCOPY SCREENING Endoscopy Routine Special screening for malignant neoplasms, colon 1 Occurrences starting 11/15/2022 until 11/16/2023 [facility] Work Phone: Comment on above: 1 Occurrences starti ng 11/15/2022 until 11/16/2023 End: 11-30-2023 US BREAST LTD LEFT US BREAST LTD LEFT Radiology Routine Abnormal screening mammogram 1 Occurrences starting 10/31/2022 until 11/30/2023 [facility] Work Phone: Comment on above: 1 Occurrences starti ng 10/31/2022 until 11/30/2023 End: 11-30-2023 US BREAST LTD RIGHT US BREAST LTD RIGHT Radiology Routine Abnormal screening mammogram 1 Occurrences starting 10/31/2022 until 11/30/2023 [facility] Work Phone: Comment on above: 1 Occurrences starti ng 10/31/2022 until 11/30/2023 Walking distance 6 minutes [facility] Work Phone: [facility] Immunizations Immunization Date Immunization Notes Care Provider Jamil acevedo 11-15-2022 pneumococcal (PCV20) vaccine, 20 valent (PREVNAR 20) Kandice Older ADMINISTRATIVE SALES ASSISTANT.PETROLEUM REFINERY LABORER Work Phone: [facility] 11-15-2022 tetanus toxoid, redu juan diphtheria toxoid, and acellular pertussis vaccine, adsorbed Kandice Older ADMINISTRATIVE SALES ASSISTANT.PETROLEUM REFINERY LABORER Work Phone: [facility] 11-15-2022 pneumococcal Conjuga te, unspecified formulation Kandice Older ADMINISTRATIVE SALES ASSISTANT.PETROLEUM REFINERY LABORER Work Phone: [facility] Work Phone: 11-21-2020 COVID-19 original vaccine, age 12+ yr, monovalent (PFIZER-BIONTECH - PURPLE TOP) Kandice Older ADMINISTRATIVE SALES ASSISTANT.PETROLEUM REFINERY LABORER Work Phone: [facility] 10-31-2020 COVID-19 original vaccine, age 12+ yr, monovalent (PFIZER-BIONTECH - PURPLE TOP) Kandice Older ADMINISTRATIVE SALES ASSISTANT.PETROLEUM REFINERY LABORER Work Phone: [facility] 06-23-2016 influenza, injectabl e, quadrivalent, contains preservative Kan MACIEL Work Phone: [facility] 06-23-2016 influenza virus vacc ine, unspecified formulation [facility] Work Phone: [facility] 12-31-2015 pneumococcal polysaccharide vaccine, 23 valent Kan MACIEL Work Phone: [facility] Payers Date Payer Category Payer Self-pay 2024 Unknown [id number] 2022 Private Health [facility] [id number] 2022 Unknown [id number] 2016 Unknown [facility] [id number] 2015 Unknown [employer] [id number] Self-pay SELF PAY INSURANCE [id number] Unknown [id number] Unknown [id number] Unknown [id number] Unknown [id number] Unknown [id number] Unknown [id number] Unknown [id number] Unknown [id number] Unknown [id number] Unknown [id number] Unknown [id number] Unknown [id number] Social History Date Type Detail Facility Start: 07-17-1987 End: 10-17-2024 Tobacco smoking status NHIS Smokes tobacco daily [facility] Start: 07-17-1987 History of tobacco use Cigarette Smo ker [facility] Start: 10-18-2022 End: 11-28-2022 Cigarettes smoked current (pack per day) - Reported 1 [facility] Start: 10-18-2022 Tobacco use and exposure Smoke less tobacco non-user [facility] Start: 10-18-2022 Alcohol intake Current drinke r of alcohol (finding) [facility] Start: 10-18-2022 History SDOH Alcohol Frequency 5 [facility] Start: 10-18-2022 History SDOH Alcohol Std Drinks 2 [facility] Start: 10-18-2022 History SDOH Alcohol Binge 1 [facility] Start: 10-18-2022 History SDOH Physica l Activity DPW 7 [facility] Start: 10-18-2022 History SDOH Stress 3 [facility] Start: 01-27-2016 Alcohol Comment before bed [facility] Start: 1975 Sex Assigned At Not on file C [facility] Start: 10-19-2022 End: 11-15-2022 Alcohol intake Ex-drinker (finding) [facility] Start: 10-18-2022 End: 11-28-2022 Social connection and isolation panel [facility] Do you belong to any clubs or organizations such as scientology groups, unions, fraternal or athletic groups, or school groups? No [facility] Are you now , , , , never or living with a partner? [facility] How often to you hav e a drink containing alcohol? 4 or more times a week [facility] How many standard dr inks containing alcohol do you have on a typical day? 3 or 4 [facility] How often do you hav e 6 or more drinks on 1 occasion? Never [facility] How hard is it for y ou to pay for the very basics like food, housing, medical care, and heating Somewhat hard [facility] Adult Depression Screening Assessment 0 [facility] Work Phone: Do you feel stress - tense, restless, nervous, or anxious, or unable to sleep at night because your mind is troubled all the time - these days [OSQ] To some extent [facility] (I/We) worried mark er (my/our) food would run out before (I/we) got money to buy more. Sometimes true [facility] The food that (I/we) bought just didn't last, and (I/we) didn't have money to get more. Never true [facility] Start: 07-08-2023 End: 07-08-2023 Tobacco smoking status NHIS Unknown if ever smoked [facility] Start: 1975 Sex Assigned At Female [facility] Start: 09-24-2024 End: 10-22-2024 Sex Female (finding) [facility] Start: 10-22-2024 [facility] Start: 01-07-2025 Tobacco smoking stat us NHIS Ex-smoker (finding) [facility] NEGATED: Highlighted row Not [facility] Goals Date Patient Goal Desired Activity /State Mental Status Date Assessment Result Facility 10-22-2024 Cognitive function Voice/Name [facility] Work Phone: Clinical Notes 06-23-2016 to 01-08-2025 Note Date & Type Note Facility 01-08-2025 Progress note [facility] 01-08-2025 Progress note Note Date/Time January 08, 2025 1:45pm [facility] of [address] [place] [address] OFFICE VISIT Date of Service: 01/08/25 MR#: [id number] Acct: [id number] Name: ROSARIO WYATT Rep #: [id number] : 1975 Provider: VADIM Acevedo Age/Sex: 49/F [...] Additional Comments: This note was generated with [employer] dictation software. It may contain incorrectwords, spelling, [...] for any breathing problems. She has a 24-rvfd-ofrf smoking history quitting completely January 2024. She [...] a local restaurant. 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 She denies any fever, [...] air Intake Visit Reasons: LDCT- CC Patient Engineering Librarian Required: No DME Vendor: N/a Accompanied by: [...] [id number] <Electronically signed by Negin moreno NP MOLDING LINE OPERATOR-C> Date _ Negin Acevedo NP MOLDING LINE OPERATOR-C Cosigner Signature: Date (if applicable) CC: MOLDING LINE OPERATOR-C Chayo Black; Dr. Joann Live MD ~ [facility] [facility] Work Phone: 1(154) 379-270906-24-2025 Radiology Diagnostic study note [facility] Imaging Services [address] [place], [place] [id number] Low Dose [address] Lung Screening MR#: [id number] Acct: [id number] Name: EDMUNDOROSARIO Rep #: [id number] : 1975 F 49 From: Ruby Martin MD PCP: Dr. Joann Live MD Status: REG CLI Study:Low Dose CT Lung Screening Date of Exam : 01/07/25 Exam# [id number] Ordering Dr: Chayo Marquez NP, NP-C PROCEDURE: LOW DOSE CT LUNG SCREENING 01/07/2025 REASON FOR EXAM: LUNG CANCER SCREENING TECHNIQUE: LOW DOSE CT LUNG SCREENING Coronal and Sagittal reconstruction series were provided. One or more dose reduction techniques were used (e.g., Automated exposure control, adjustment of the mA and/or kV according to patient size, use of iterative reconstruction technique). REFERENCE LINK: Deck[employer] Lung-RADS RADIATION DOSE SUMMARY: DLP: 59 mGycm [...] cm within the right anna. Reading Location: [facility] CC: MOLDING LINE OPERATOR-Kiko Black; Dr. Joann Live MD ~ Real Estate Lawyer: Signed [facility]06-03-2025 NotePatient Outreach (INTMWS) EDMUNDO,ORSARIO Aguilera ([id number]) 1975 F Date Time Provider Department 12/17/24 EDWARD MARTINEZ During your visit today, we recorded the following information about you: Allergies As of Date: 12/17/2024 (No Known Allergies) Date Reviewed: 11/28/2022 Reviewed by: Kelly Beauchamp LPN - Fully Assessed Visit Diagnosis:Encounter for screening mammogram for breast cancer [Z12.31] Order(s):HERMILA WHITTINGTON W SANJUANA [[id number]] Order #: [id number] FUTURE Prescriptions as of 01/17/2025 - Ibuprofen [...] liver enzymes [R74.8] 11/15/2022 Encounter Status:Closed by Gift Card ImpressionsESTELLAUSEJose on 01/17/25[facility] 10-22-2024 Consult note [facility] Medical Records Department [address] [place] [address] Anesthesia Postop Eval I 10/22/24922 MR#: [id number] Acct: [id number] Name: JOSE E WYATTRA SANCHEZ Rep #:[id number] : 1975 48 From: Dean Marshall PCP: Dr. Joann Live MD Status:REG SDC Y Race: C Location: [place] [address] Anesthesia: Postop Eval I Current Vital Signs [...] Olivoyaritza Georgesignyaritza Signature: Date CC: ~ Signed [facility]04-08-2025 Procedure note [facility] Medical Records Department [address] [place] [address] Colonoscopy Report MR#: [id number] Acct: [id number] Name: ROSARIO WYATT Rep #:[id number] : 1975 48 From: Justus Robertson MD PCP: Dr. Joann Live MD Status:[facility] Patient Name: Rosario Wyatt Procedure Date: 10/22/2024 [...] present medications. Procedure Code(s): --- Professional --- 08769, Colonoscopy, flexible; diagnostic, including collection of specimen(s) by brushing or washing, when performed (separate procedure) Diagnosis Code(s): --- Professional --- Z12.11, Encounter for screening for malignant neoplasm of colon K57.30, Diverticulosis of large intestine without perforation or abscess without bleeding K64.8, Other hemorrhoids CPT copyright 2021 [employer]. All rights reserved. The codes documented in this report are preliminary and upon surgical coder review may be revised to meet current compliance requirements. Justus Robertson MD 10/22/2024 9:23:43 AM This report has been signed electronically. Number of Addenda: 0 Note Initiated On: 10/22/2024 8:46 AM 10/22/24923 Date _ Justus Robertson MD Cosigner Signature: Date (if indicated) CC: Dr. Joann Live MD; Dr. Justus Robertson MD ~ Date Dictated: 10/22/24845 Date Transcribed: Real Estate Lawyer: ERWIN Paige [facility]04-08-2025 Procedure note [facility] Medical Records Department [address] [place] [address] MIKEY ORTIZ [address] Operative Report - CC Letter MR#: [id number] Acct: [id number] Name: ROSARIO WYATT Rep #:[id number] : 1975 48 From: Justus Robertson MD PCP: Dr. Joann Live MD Status:REG [facility] 10/22/2024 Joann Live [address] [id number] Re : Colonoscopy procedure for Rosario Wyatt [...] electronically. 10/22/24923 Date _ Justus Robertson MD [facility] Signature: Date (if indicated) CC: Dr. Joann Live MD; Dr. Justus Robertson MD ~ Date Dictated: 10/22/24845 Date Transcribed: Real Estate Lawyer: ERWIN Paige [facility]04-08-2025 Evaluation note* Diagnosis Onset Date Resolution Status Admit Date Encounter for screening for malignant neoplasm of colon acute Apri l 2024 7:08am [facility] Work Phone: 1(159) 358-339404-08-2025 Evaluation note* Diagnosis Onset Date Resolution Status Admit Date Encounter for screening for malignant neoplasm of colon acute Apri l 2024 7:08am Encounter for screening for malignant neoplasm of lung acute January 07, 2025 12:06pm History of tobacco use acute Ju 2024 12:06pm [facility] Work Phone: 1(794) 495-772204-08-2025 Evaluation note* Diagnosis Onset Date Resolution Status [...] of breath acute January 08, 2025 12:35pm [facility] Work Phone: 1(727) 115-119104-08-2025 History and physical note [facility] Medical Records Department [address] [place] [address] History & Physical Exam 10/22/24840 MR#: [id number] Acct: [id number] Name: ROSARIO WYATT Rep #:[id number] : 1975 48 From: Justus Robertson MD PCP: Dr. Joann Live MD Status:REG [facility] Location: [place] [address] HPI - General General Date of Admission: 10/22/24 Date of Service: 10/22/24 Chief Complaint: Colonoscopy HPI Narrative ROSAROI WYATT, is a 48 F who presents today for screening colonoscopy. She has had no previous colonoscopy. No GI issues or symptoms. No family history of colon polyps or colon cancers [facility] History Wears glasses Wears dentures [...] begin momentarily. Charges/Coding Visit Charges Inpatient E&M: 50556 Init Hosp L1 10/22/24 0843 Cosigner Signature (if applicable): CC: Dr. Joann Live MD; Dr. Justus Robertson MD~ Signed [facility]04-08-2025 [facility] Medical Records Department [address] [place] [address] History Physical Exam 10/22/24 0841 MR#: [id number] Acct: [id number] Name: ROSARIO WYATT Rep #: [id number] : 1975 48 From: Justus Robertson MD PCP: Dr. Joann Live MD Status:[facility] Location: [place] [address] HPI - General General Date of Admission: 10/22/24 Date of Service: 10/22/24 Chief Complaint: Colonoscopy HPI Narrative ROSARIO WYATT, is a 48 F who presents today for screening colonoscopy. She has had no previous colonoscopy. No GI issues or symptoms. No family history of colon polyps or colon cancers [facility] Medical History Wears glasses Wears dentures Alcohol [...] momentarily. Charges/Coding Visit Charges Inpatient E M: 39819 Init Hosp L1 10/22/24 0843 Cosigner Signature (if applicable): CC: Dr. Joann Live MD; Dr. Justus Robertson MD [facility]04-08-2025 Consult note [facility] Medical Records Department [address] [place] [address] Pre-Anesthesia Evaluation 10/22/24 0800 MR#: [id number] Acct: [id number] Name: ROSARIO WYATT Rep #:[id number] : 1975 48 From: Wolfgang Roberts MD PCP: Dr. Joann Live MD Status:REG SD Y Race: C Location: [place] [address] ASA Classification* ASA Classification ASA Classification: 2 [...] Procedure(s): COLONOSCOPY Anesthesia History Anesthesia History - geology associate: Anesthesia History - geology associate Hx Hospitalization No 10/17/24 15:20 Any Problems [...] sips of water?: No PONV PONV - geology associate: PONV - geology associate Female Yes 10/17/24 15:20 HX of Motion [...] 10/22/24 07:31 Respiratory Assessment Respiratory Assessment - geology associate: Respiratory Tract Infection Hx - geology associate Hx Respiratory Tract Infection No 10/17/24 15:20 STOP Sleep Apnea STOP Sleep Apnea - geology associate: STOP Sleep Apnea - geology associate Hx Hypertension No 10/17/24 15:20 Hx Sleep [...] Tobacco Use History Tobacco Use History - geology associate: Tobacco Use History - geology associate Tobacco Use Smoking Status Current every day smoker 10/17/24 15:20 Hx Tobacco Use Yes: vapes 10/17/24 15:20 Years Smoking Packs Smoked per Day Smoking Cessation Date was within the last 15 years Hx Smoking Cessation Date Hx Smoking Cessation No 10/17/24 15:20 Counseling Any additional information?: Yes Tobacco Use: Vapor (Patient did vape today.) Hematologic Medial History Hematologic Hx - geology associate: 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 Hx of Blood Transfusion No 10/17/24 15:20 [...] confused, unrespo /Reproduction History /Reproductive History - geology associate: /Reproductive Hx- geology associate Hx Now No 10/17/24 15:20 Gestational Age [...] verdin MD> Date _ Wolf[facility] Signature: Date CC: ~ Signed [facility]03-06-2024 Procedure [facility] 12-06-2022 History of Present illness Narrative* [...] 06, 2022 9:20 AM [facility] History of Present illness Narrative* Marisabel Drake [...] 06, 2022 7:51 AM documented in this encounterSycamore [facility]05-02-2023 Instructions* Patient Instructions* Kandice Mario APRN.PETROLEUM REFINERY LABORER - 11/15/2022 9:33 AM EDT Health Information [...] until the day before your colonoscopy. Designated Auto Inspector on the Day of Your Exam A responsible family member or friend MUST come with you to your colonoscopy and REMAIN in the endoscopy area until you are discharged! You are NOT ALLOWED to drive, take a taxi or bus, or leave the Endoscopy Center ALONE. If you do not have a responsible farm truck driver (family member or friend) with [...] carbonated beverages such as elana sang or lemon-karuk soda; Gatorade or other sports drinks (not [...] calling after 5:00 PM, please call Nurse client liaison at [phone]. [facility] [address] [id number] Index # 76133 Revised 08/2016 3 Colonoscopy Procedure Overview Please [...] If the nausea persists, please contact nurse inspector water pollution control at [phone]. You may experience skin irritation around the anus due to the passage of liquid stools. To prevent and treat skin irritation, you should: ?Apply Vaseline or Desitin ointment to the skin around the anus before drinking the bowel preparation medications. These products can be purchased at any [employer]. ?Wipe the skin after each bowel movement [...] performed your exam. 6 Revised 08/2016 Copyright 2958-5721 [facility]. All rights reserved. Revised 08/2016 documented in this encounterSy[facility]05-02-2023 History of Present illness Narrative* Kandice Mario [...] Patient agreeable to treatment plan. Kandice Older, ADMINISTRATIVE SALES ASSISTANT.PETROLEUM REFINERY LABORER RUST OPEN ACCESS QUESTIONNAIRE 1. Are you currently [...] Please send all open access questionnaires to [facility] Pool #[id number] documented in this encounterSy[facility]04-25-2023 History of Present illness Narrative* Ton Conde [...] 45 Ton Conde PT documented in this encounterSycamore [facility] Center04-24-2023 Miscellaneous Notes* Telephone Encounter - Roya Cordon [...] transportation. Roya Cordon LPN documented in this encounterSycam[facility] Center04-13-2023 Miscellaneous Notes* Telephone Encounter - Marine Gunter [...] back pain. Please call patient with update. [phone] Thank you. documented in this encounterSycamore Medical Center04-12-2023 Miscellaneous Notes* Letter - Mammography Coordinator - 10/26/2022 8:04 AM EDT October 26, 2022 PID: [id number] Rosario Wyatt [address] [place] [address] Dear Ms. Wyatt, Your recent breast imaging exam on 10/25/2022 showed a possible finding that requires additional imaging studies for a complete evaluation. Most such findings are probably benign (not cancer). If you have a healthcare provider who ordered/prescribed your screening mammogram: Please call [phone] or [phone]: [phone] to schedule an appointment for your additional [...] and reports are kept on file at [facility] as part of your permanent medical record, and are available for your continuing care. Thank you for allowing us to help in meeting your health care needs. Sincerely, Dr. Sandoval Interpreting Radiologist [facility] [place] (Additional imaging) documented in this encounterSycamore Medical Center04-11-2023 History of Present illness Narrative* Karine Silvestre, [...] 25, 2022 2:47 PM documented in this encounterSycamore Medical Center04-05-2023 History of Present illness Narrative* Nu Brown [...] 19, 2022 5:38 PM documented in this encounterSycamore [facility] Center04-05-2023 Miscellaneous Notes* Result Encounter Note - Edward Martinez MD - 10/19/2022 5:40 PM EDT Result viewed. No acute disease. documented in this encounterSycamore Medical Center04-05-2023 Progress note* Result Encounter Note - Edward Martinez MD - 10/19/2022 5:40 PM EDT Result viewed. No acute disease. [facility] History of Present illness Narrative* RAHEEM Johnson - 10/18/2022 7:30 AM EDT This note was created using Nambiiriter. Subjective Rosario Wyatt is a 46 year [...] Right 10/2016 breast abscess S BALLOON,UTERINE ABLATION 55589 2007 TUBAL LIGATION HX 1995 ALLERGIES Patient [...] ER evaluation. RAHEEM Johnson documented in this encounterSycamore [facility] Center12-08-2016 History of Past illness Narrative* Problem Noted Date Resolved Date Chronic diarrhea 06/23/2016 10/19/2022 documented as of this encounter (statuses as of 10/28/2022) [place] [address]-08-2016 History of Past illness Narrative* Problem Noted Date Resolved Date Chronic diarrhea 06/23/2016 10/19/2022 documented as of this encounter (statuses as of 10/28/2022) [address]08-2016 History of Past illness Narrative* Problem Noted Date Resolved Date Chronic diarrhea 06/23/2016 10/19/2022 documented as of this encounter (statuses as of 11/07/2022) [place] [address]-08-2016 History of Past illness Narrative* Problem Noted Date Resolved Date Chronic diarrhea 06/23/2016 10/19/2022 documented as of this encounter (statuses as of 11/09/2022) [place] [address]-08-2016 History of Past illness Narrative* Problem Noted Date Resolved Date Chronic diarrhea 06/23/2016 10/19/2022 documented as of this encounter (statuses as of 11/15/2022) [facility] of Past illness Narrative* Problem Noted Date Diagnosed Date Resolved Date Chronic diarrhea 06/23/2016 10/19/2022 documented as of this encounter (statuses as of 05/21/2023) [facility] of Past illness Narrative* Problem Noted Date Diagnosed Date Resolved Date Chronic diarrhea 06/23/2016 10/19/2022 documented as of this encounter (statuses as of 05/21/2023) [facility] of Past illness Narrative* Problem Noted Date Diagnosed Date Resolved Date Chronic diarrhea 06/23/2016 10/19/2022 documented as of this encounter (statuses as of 05/21/2023) [facility] CenterConsult note Author Wolfgang Roberts [facility] Note Date/Time October 22, 2024 8:[address] [facility] Medical Records Department [address] [place] [address] Pre-Anesthesia Evaluation 10/22/24 0800 MR#: [id number] Acct: [id number] Name: ROSARIO WYATT Rep #:[id number] : 1975 48 From: Wolfgang Roberts MD PCP: Dr. Joann Live MD Status:REG [facility] Y Race: C Location: [place] [address] ASA Classification* ASA Classification ASA Classification: 2 [...] Procedure(s): COLONOSCOPY Anesthesia History Anesthesia History - geology associate: Anesthesia History - geology associate Hx Hospitalization No 10/17/24 15:20 Any Problems [...] sips of water?: No PONV PONV - geology associate: PONV - geology associate Female Yes 10/17/24 15:20 HX of Motion [...] 10/22/24 07:31 Respiratory Assessment Respiratory Assessment - geology associate: Respiratory Tract Infection Hx - geology associate Hx Respiratory Tract Infection No 10/17/24 15:20 STOP Sleep Apnea STOP Sleep Apnea - geology associate: STOP Sleep Apnea - geology associate Hx Hypertension No 10/17/24 15:20 Hx Sleep [...] Tobacco Use History Tobacco Use History - geology associate: Tobacco Use History - geology associate Tobacco Use Smoking Status Current every day smoker 10/17/24 15:20 Hx Tobacco Use Yes: vapes 10/17/24 15:20 Years Smoking Packs Smoked per Day Smoking Cessation Date was within the last 15 years Hx Smoking Cessation Date Hx Smoking Cessation No 10/17/24 15:20 Counseling Any additional information?: Yes Tobacco Use: Vapor (Patient did vape today.) Hematologic Medial History Hematologic Hx - geology associate: 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 Medical Records Department [address] [place] [address] Anesthesia Postop Eval I 10/22/24922 MR#: [id number] Acct: [id number] Name: EDMUNDOROSARIO Rep #:[id number] : 1975 48 From: Dean Marshall PCP: Dr. 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 documented in this encounter [facility]* Diagnosis Abnormal screening mammogram- Primary Abnormal mammogram, unspecified documented in this encounter [facility]* Diagnosis Acute back pain with sciatica, right- Primary documented in this encounter [facility]* Diagnosis Skin lesion of left leg- Primary Unspecified disorder of skin and subcutaneous tissue Acute back pain with sciatica, right Elevated liver enzymes Other nonspecific abnormal serum enzyme levels Special screening for malignant neoplasms, colon Encounter for immunization Need for other specified prophylactic vaccination against single bacterial disease documented in this encounter [facility] note* Diagnosis Abnormal screening mammogram Abnormal mammogram, unspecified documented in this encounter [facility]* Diagnosis Screening mammogram for breast cancer documented in this encounter [facility]* Diagnosis Abnormal screening mammogram Abnormal mammogram, unspecified documented in this encounter [facility] noteNo assessment information availableWFort Hamilton Hospital Work Phone: Evaluation note* Diagnosis Encounter for screening mammogram for breast cancer documented in this encounter [facility]* Diagnosis Acute bilateral low back pain with right-sided sciatica documented in this encounter [facility]* Diagnosis Encounter for screening mammogram for breast cancer documented in this encounter [facility] Author Justus Robertson [facility] Note Date/Time October 22, 2024 8:43 am [facility] Medical Records Department [facility] [place] [address] History & Physical Exam 10/22/24 0841 MR#: [id number] Acct: [id number] Name: ROSARIO WYATT Rep #:[id number] : 1975 48 From: Justus Robertson MD PCP: Dr. Joann Live MD Status:[facility] Location: [place] [address] HPI - General General Date of Admission: 10/22/24 Date of Service: 10/22/24 Chief Complaint: Colonoscopy HPI Narrative ROSARIO WYATT, is a 48 F who presents today for screening colonoscopy. She has had no previous colonoscopy. No GI issues or symptoms. No family history of colon polyps or colon cancers [facility] Medical History Wears glasses Wears dentures Alcohol [...] begin momentarily. Charges/Coding Visit Charges Inpatient E&M: 08811 Init Hosp L1 10/22/24 0843 <Electronically signed by Justus Robertson MD> Cosigner Signature (if applicable): CC: Dr. Joann Live MD; Dr. Justus Robertson MD~ Signed [facility] Work Phone: Reason for referral (narrative)* Diagnostic Procedure Only (Routine) - Pending Review Specialty Diagnoses / Procedures Referred By Madeline hamlin Referred To Contact [facility] Diagnoses Abnormal screening mammogram Procedures US BREAST LTD LEFT US BREAST UNI REAL TIME WITH IMAGE LIMITED Kandice Mario APRN.CNP [address] [place] [address] [facility] [address] [facility] [place] [address] Referral ID Status Reason Start Date Expiration Date Visits Requested Visits Authorized [id number] Pending Review Auto-Generat ed Referral 10/31/2022 11/30/2023 1 1 * Diagnostic Procedure Only (Routine) - Pending Review Specialty Diagnoses / Procedures Referred By Madeline hamlin Referred To Contact [facility] Diagnoses Abnormal screening mammogram Procedures US BREAST LTD RIGHT US BREAST UNI REAL TIME WITH IMAGE LIMITED Kandice Mario APRN.PETROLEUM REFINERY LABORER [address] [place] [address] [facility] [address] [address] Referral ID Status Reason Start Date Expiration Date Visits Requested Visits Authorized [id number] Pending Review Auto-Generat ed Referral 10/31/2022 11/30/2023 1 1 * Diagnostic Procedure Only (Routine) - Pending Review Specialty Diagnoses / Procedures Referred By Contac t Referred To Contact [facility] Diagnoses Abnormal screening mammogram Procedures HERMILA DIAGNOSTIC BILATERAL DIAGNOSTIC MAMMOGRAPHY COMPUTER-AIDED DETCJ Kandice Mario APRN.PETROLEUM REFINERY LABORER [address] [place] [address] [place] [address] Referral ID Status Reason Start Date Expiration Date Visits Requested Visits Authorized [id number] Pending Review Auto-Generat ed Referral 10/31/2022 11/30/2023 1 1 [facility] for referral (narrative)* Outpatient Procedure (Routine) - Pending Review Specialty Diagnoses / Procedures Referred By Contac t Referred To Contact [facility] Diagnoses Special screening for malignant neoplasms, colon Procedures COLONOSCOPY SCREENING COLONOSCOPY FLX DX W/COLLJ SPEC WHEN PFRMD Kandice Mario APRN.PETROLEUM REFINERY LABORER [address] [place] [address] [facility] [address] [place] [address] Referral ID Status Reason Start Date Expiration Date Visits Requested Visits Authorized [id number] Pending Review Auto-Generat ed Referral 11/15/2022 11/16/2023 1 1 * Consult, Test, Treat (Routine) - Pending Review Specialty Diagnoses / Procedures Referred By Contac t Referred To Contact Dermatology Diagnoses Skin lesion of left leg Procedures CONSULT TO DERMATOLOGY OFFICE/OUTPATIENT NEW HIGH MDM 60-74 MINUTES Kandice Mario APRN.CNP [address] [place] [address] Referral ID Status Reason Start Date Expiration Date Visits Requested Visits Authorized [id number] Pending Review PCP Requested Referral 11/15/2022 11/15/2023 1 1 [facility] for referral (narrative)* Diagnostic Procedure Only (Routine) - Pending Review Specialty Diagnoses / Procedures Referred By Contac t Referred To Contact [facility] Diagnoses Abnormal screening mammogram Procedures US BREAST LTD LEFT US BREAST UNI REAL TIME WITH IMAGE LIMITED Kandice Mario APRN.CNP [address] [place] [address] [facility] [address] [place] [address] Referral ID Status Reason Start Date Expiration Date Visits Requested Visits Authorized [id number] Pending Review Auto-Generat ed Referral 10/31/2022 11/30/2023 1 1 * Diagnostic Procedure Only (Routine) - Pending Review Specialty Diagnoses / Procedures Referred By Contac t Referred To Contact BR IMAGING Diagnoses Abnormal screening mammogram Procedures US BREAST LTD RIGHT US BREAST UNI REAL TIME WITH IMAGE LIMITED Kandice Mario APRN.CNP [address] [place] [address] [facility] [address] [place] [place] [address] Referral ID Status Reason Start Date Expiration Date Visits Requested Visits Authorized [id number] Pending Review Auto-Generat ed Referral 10/31/2022 11/30/2023 1 1 [facility] for referral (narrative)* Diagnostic Procedure Only (Routine) - Pending Review Specialty Diagnoses / Procedures Referred By Contac t Referred To Contact BR IMAGING Diagnoses Screening mammogram for breast cancer Procedures HERMILA SCREENING SCREENING MAMMOGRAPHY BI 2-VIEW BREAST INC CAD Edward Martinez MD [address] [place] [address] [facility] Imaging [address] [place] [phone] Referral ID Status Reason Start Date Expiration Date Visits Requested Visits Authorized [id number] Pending Review Auto-Generat ed Referral 10/19/2022 11/18/2023 1 1 [facility] for referral (narrative)* Diagnostic Procedure Only (Routine) - Pending Review Specialty Diagnoses / Procedures Referred By Madeline hamlin Referred To Contact BR IMAGING Diagnoses Encounter for screening mammogram for breast cancer Procedures HERMILA SCREENING W [place] SCREENING DIGITAL BREAST TOMOSYNTHESIS BI SCREENING MAMMOGRAPHY BI 2-VIEW BREAST INC CAD Edward Martinez MD [address] [place] [phone] [facility] [address] [place] [phone] Referral ID Status Reason Start Date Expiration Date Visits Requested Visits Authorized [id number] Pending Review Auto-Generat ed Referral 01/17/2024 02/15/2025 1 1 [facility] for referral (narrative)* Diagnostic Procedure Only (Routine) - Closed Specialty Diagnoses / Procedures Referred By Madeline hamlin Referred To Contact XR IMAGING Diagnoses Acute bilateral low back pain with right-sided sciatica Procedures XR LUMBAR GENERAL 3V AP/LAT/L5-S1 RADEX SPINE LUMBOSACRAL 2/3 VIEWS Edward Martinez MD [address] [place] [address] [place] [id number] Referral ID Status Reason Start Date Expiration Date V isits Requested Visits Authorized [id number] Closed Auto-Generate d Referral 10/19/2022 11/18/2023 1 1 [facility] for referral (narrative)No reason for referral information [facility]WF[facility] Work Phone: Reason for visit Narrative* Diagnostic Procedure Only (Routine) - Pending Review Specialty Diagnoses / Procedures Referred By Contac t Referred To Contact BR IMAGING Diagnoses Screening mammogram for breast cancer Procedures HERMILA SCREENING SCREENING MAMMOGRAPHY BI 2-VIEW BREAST INC CAD Edward Martinez MD [address] [place] [address] [facility] [address] [place] [place] [address] Referral ID Status Reason Start Date Expiration Date Visits Requested Visits Authorized [id number] Pending Review Auto-Generat ed Referral 10/19/2022 11/18/2023 1 1 [facility] for visit Narrative* Diagnostic Procedure Only (Routine) - Closed Specialty Diagnoses / Procedures Referred By Contac t Referred To Contact BR IMAGING Diagnoses Abnormal screening mammogram Procedures HERMILA DIAGNOSTIC BILATERAL DIAGNOSTIC MAMMOGRAPHY COMPUTER-AIDED DETCJ BI Older, Kandice, ADMINISTRATIVE SALES ASSISTANT.PETROLEUM REFINERY LABORER [address] [place] [address] [facility] [address] [place] [address] Referral ID Status Reason Start Date Expiration Date V isits Requested Visits Authorized [id number] Closed Auto-Generate d Referral 10/31/2022 11/30/2023 1 1 [facility] for visit Narrative* Diagnostic Procedure Only (Routine) - Closed Specialty Diagnoses / Procedures Referred By Madeline t Referred To Contact XR IMAGING Diagnoses Acute bilateral low back pain with right-sided sciatica Procedures XR LUMBAR GENERAL 3V AP/LAT/L5-S1 RADEX SPINE LUMBOSACRAL 2/3 VIEWS Edward Martinez MD [address] [place] [address] [place] [id number] Referral ID Status Reason Start Date Expiration Date V isits Requested Visits Authorized [id number] Closed Auto-Generate d Referral 10/19/2022 11/18/2023 1 1 [facility] Summary Purpose Family History No Family History Records FoundNo Family History Records FoundNo Family History Records Found Advance Directives No Advanced Directives Records Found Advance Directive Response Recorded Date/ Time Advance Directives No June 7:48pm Living Will No Rex 23rd, 2 023 7:50am Power of Certified Rehabilitation Counselor No July 08, 2023 7:50am Advance Directive Response Recorded Date/ Time Advance Directives No June 8:48pm Living Will No July 08, 2 023 8:50am Power of Certified Rehabilitation Counselor No July 08, 2023 8:50am Advance Directive Response Recorded Date/ Time Advance Directives No June 8:48pm Advance Directive Response Recorded Date/ Time Living Will No October 17, 2024 3:20pm Do you have a Healthcare Power of Certified Rehabilitation Counselor? No October 17, 2024 3:20pm Advance Directives No June 8:48pm Chief Complaint and Reason for Visit Chief Complaint back Chief Complaint back 6 MONTH F/U (FROM [facility] 11/2022 MAMM/US) Chief Complaint back 6 MONTH F/U (FROM [facility] 11/2022 MAMM/US) CARPAL TUNNEL VS CERVICAL RADICULOPATHY [...] section and content) DATE CREATED AUTHOR 02/10/2020 [facility] DATE CREATED AUTHOR AUTHOR'S ORGANIZ ATION 01/19/2025 [facility] DATE CREATED AUTHOR AUTHOR'S ORGANIZ ATION 01/19/2025 [facility] Source Comments (unrecognize d section and content) In the event this informatio n is protected by the Federal Confidentiality of Alcohol and Drug Abuse Patient Records regulations: The Federal rules restrict any use of the information to criminally investigate or prosecute any alcohol or drug abuse patient.[facility] the event this information is protected by the Federal Confidentiality of Alcohol and Drug Abuse Patient Records regulations: The Federal rules restrict any use of the information to criminally investigate or prosecute any alcohol or drug abuse patient.[facility] the event this information is protected by the Federal Confidentiality of Alcohol and Drug Abuse Patient Records regulations: The Federal rules restrict any use of the information to criminally investigate or prosecute any alcohol or drug abuse patient.[facility] Center[facility] the event this information is protected by the Federal Confidentiality of Alcohol and Drug Abuse Patient Records regulations: The Federal rules restrict any use of the information to criminally investigate or prosecute any alcohol or drug abuse patient.[facility] Center[facility] the event this information is protected by the Federal Confidentiality of Alcohol and Drug Abuse Patient Records regulations: The Federal rules restrict any use of the information to criminally investigate or prosecute any alcohol or drug abuse patient.[facility] Center[facility] the event this information is protected by the Federal Confidentiality of Alcohol and Drug Abuse Patient Records regulations: The Federal rules restrict any use of the information to criminally investigate or prosecute any alcohol or drug abuse patient.[facility] Center[facility] the event this information is protected by the Federal Confidentiality of Alcohol and Drug Abuse Patient Records regulations: The Federal rules restrict any use of the information to criminally investigate or prosecute any alcohol or drug abuse patient.[facility] Center[facility] the event this information is protected by the Federal Confidentiality of Alcohol and Drug Abuse Patient Records regulations: The Federal rules restrict any use of the information to criminally investigate or prosecute any alcohol or drug abuse patient.[facility] Center[facility] the event this information is protected by the Federal Confidentiality of Alcohol and Drug Abuse Patient Records regulations: The Federal rules restrict any use of the information to criminally investigate or prosecute any alcohol or drug abuse patient.[facility] Center[facility] the event this information is protected by the Federal Confidentiality of Alcohol and Drug Abuse Patient Records regulations: The Federal rules restrict any use of the information to criminally investigate or prosecute any alcohol or drug abuse patient.[facility] Center[facility] the event this information is protected by the Federal Confidentiality of Alcohol and Drug Abuse Patient Records regulations: The Federal rules restrict any use of the information to criminally investigate or prosecute any alcohol or drug abuse patient.[facility] Center[facility] the event this information is protected by the Federal Confidentiality of Alcohol and Drug Abuse Patient Records regulations: The Federal rules restrict any use of the information to criminally investigate or prosecute any alcohol or drug abuse patient.[facility] Reason for Visit (unrecogniz ed section and content) Reason Comments Pain, Back Lower back pain x 3 days-started after lifting Reason Comments Medication Request Reason Comments mammogram orders/US Reason Comments Physical Therapy Specialty Diagnoses / Procedures Referred By Contac t Referred To Contact INTERNAL MEDICINE Diagnoses BACK PAIN Procedures NEW PATIENT Self [address] [place] [address] Referral ID Status Reason Start Date Expiration Date Visits Requested Visits Authorized [id number] Authorized Patient Cleared - Qualified [id number] 10/17/2022 01/15/2023 99 99 Reason Comments 4 week follow up - back pain, lab result s Specialty Diagnoses / Procedures Referred By Contac t Referred To Contact INTERNAL MEDICINE Diagnoses BACK PAIN Procedures NEW PATIENT Self [address] [place] [address] Reason Comments Radiology US Specialty Diagnoses / Procedures Referred By Contac t Referred To Contact BR IMAGING Diagnoses Abnormal screening mammogram Procedures US BREAST LTD LEFT US BREAST UNI REAL TIME WITH IMAGE LIMITED Kandice Mario APRN.PETROLEUM REFINERY LABORER [address] [place] [address] [facility] [address] [place] [address] Referral ID Status Reason Start Date Expiration Date Visits Requested Visits Authorized [id number] Pending Review Auto-Generat ed Referral 10/31/2022 11/30/2023 [...] 2025 End: January 07, 2025 Chayo Black MOLDING LINE OPERATOR, MOLDING LINE OPERATOR-C Attending Provider Active Start: January 07, 2025 End: January 07, 2025 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 Relationship Specialty Start Date End Date Edward Martinez MD [address] [place], [place] [phone] PCP - General Internal Medicine 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 Relationship Specialty Start Date End Date Edward Martinez MD [address] [place], [place] [id number] PCP - General Internal Medicine 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 Relationship Specialty Start Date End Date Edward Martinez MD [address] [facility] [place] [address] PCP - General Internal Medicine 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 Relationship Specialty Start Date End Date Edward Martinez MD [address] [place] [address] PCP - General Internal Medicine 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 Relationship Specialty Start Date End Date Edward Martinez MD [address] [place] [address] PCP - General Internal Medicine 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 Relationship Specialty Start Date End Date Edward Martinez MD [address] [place] [address] PCP - General Internal Medicine 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 Chirag Cuadra DO Emergency Provider Active No Primary Care Physician Primary Care Provider Active Team Status: Active Member Role Status Dates [facility] Family Provider Active Dr. Joann Live [...] Dr. 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 Joann Live MD Primary Care Provider Active Start: August 15, 2024 Shabnam Haynes Attending Provider Active Start: [facility] 2024 Team Status: Active Member Role Status Dates Dr. Joann Live MD Primary Care Provider Active Start: January 07, 2025 Chayo Black MOLDING LINE OPERATOR, MOLDING LINE OPERATOR-C Attending Provider Active Start: January 07, 2025 Chayo Black MOLDING LINE OPERATOR, MOLDING LINE OPERATOR-C Referring Provider Active Start: January 07, 2025 Team Status: Inactive Member Role Status Dates Dr. Joann Live MD Primary Care Provider Active Start: January 08, 2025 End: January 08, 2025 Dr. Joann Live MD Referring Provider Active Start: January 08, 2025 End: January 08, 2025 Negin Acevedo MOLDING LINE OPERATOR, MOLDING LINE OPERATOR-C Attending Provider Active Start: January 08, 2025 [...] Active Start: October 22, 2024 Dr. Justus oRbertson MD Attending Provider Active Start: October 22, 2024 Dr. Justus Robertson MD Other Provider Active St art: October 22, 2024 Team Status: Inactive Member Role/Relationship Status Dates Dr. Joann Live MD Primary Care Provider Active Start: January 07, 2025 End: January 07, 2025 Dr. Joann Live MD Referring Provider Active Start: January 07, 2025 End: January 07, 2025 Chayo Black MOLDING LINE OPERATOR, MOLDING LINE OPERATOR-C Attending Provider Active Start: January 07, 2025 End: January 07, 2025 Team Status: Inactive Member Role/Relationship Status Dates Dr. Joann Live MD Primary Care Provider Active Start: January 07, 2025 End: January 07, 2025 Chayo Black MOLDING LINE OPERATOR, MOLDING LINE OPERATOR-C Attending Provider Active Start: January 07, 2025 End: January 07, 2025 Chayo Black MOLDING LINE OPERATOR, MOLDING LINE OPERATOR-C Referring Provider Active Start: January 07, 2025 End: January 07, 2025 Team Status: Inactive Member Role/Relationship Status Dates Dr. Joann Live MD Primary Care Provider Active Start: January 08, 2025 End: January 08, 2025 Dr. Joann Live MD Referring Provider Active Start: January 08, 2025 End: January 08, 2025 Negin Acevedo MOLDING LINE OPERATOR, MOLDING LINE OPERATOR-C Attending Provider Active Start: January 08, 2025 End: January 08, 2025 Team Status: Active Member Role/Relationship Status Dates Dr. Joann Live MD Primary Care Provider Active Start: January 08, 2025 Negin Acevedo MOLDING LINE OPERATOR, MOLDING LINE OPERATOR-C Attending Provider Active Start: January 08, 2025 Negin Acevedo MOLDING LINE OPERATOR, MOLDING LINE OPERATOR-C Referring Provider Active Start: January 08, 2025 Team Status: Inactive Member Role/Relationship Status Dates Dr. 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 [facility]. provides no warranty or guarantee of the accuracy or completeness of information in this document.
== END 2025-01-21 23:59 | disposition home or self-care (01) ==
LOC: CT 06:50
PROVIDERS: PCP Family Medicine; Referring Provider Nurse Practitioner Acute Care; Visit Provider Nurse Practitioner Acute Care
DX: C34.11 Malignant neoplasm of upper lobe, right bronchus or lung (principal); Z87.891 Personal history of nicotine dependence
CPT/HCPCS: 32408; 71046; 77012; 88172; 88305; 88313; 88341; 88342; 94060; 94726; 94729; 99156; A4216; C2613

== ENCOUNTER → 2025-01-23 | Outpatient (CLI) | payer OTHER, SELFPAY ==
[2025-01-23 08:05] VITALS: PULSE 107; PULSE 108; PULSE 109; PULSE 110; PULSE 94; O2SAT 96; O2SAT 97
--- NOTE | 2025-01-24 11:35 | WT_ITS ---
PSN 6 Minute Walk Test 6 Minute Walk Test 6 Minute Walk Test: 6 Minute Walk Test PSN:6-Minute Walk Test Start: 01/23/25 08:20 Freq: Status: Active Protocol: RESP.6MINW Document 01/23/25 08:05 WLB (Rec: 01/23/25 08:24 WLB [id number]) 6 Minute Walk Test Date Performed 01/23/25 Time Performed 08:05 Height 5 ft 6 in Weight: 152 lb Weight in Pounds 152.[address]: Negin Acevedo LEATHER GRADER Assistive device None used: Pre-test Oxygen Delivery Room Air Method Pulse Ox (%) 96 Pulse Rate (60-100 94 beats/min) Dyspnea Hernandez Scale ( 0 0-10) Exertion Hernandez Scale 6 (6-20) 1st minute Oxygen Delivery Room Air Method Pulse Ox (%) 96 Pulse Rate (60-100 110 H beats/min) 2nd minute Oxygen Delivery Room Air Method Pulse Ox (%) 96 Pulse Rate (60-100 107 H beats/min) 3rd minute Oxygen Delivery Room Air Method Pulse Ox (%) 96 Pulse Rate (60-100 108 H beats/min) 4th minute Oxygen Delivery Room Air Method Pulse Ox (%) 97 Pulse Rate (60-100 110 H beats/min) 5th minute Oxygen Delivery Room Air Method Pulse Ox (%) 96 Pulse Rate (60-100 109 H beats/min) 6th minute Oxygen Delivery Room Air Method Pulse Ox (%) 96 Pulse Rate (60-100 110 H beats/min) Dyspnea Hernandez Scale ( 1 0-10) Exertion Hernandez Scale 6 (6-20) Post-test Oxygen Delivery Room Air Method Pulse Ox (%) 96 Pulse Rate (60-100 94 beats/min) Dyspnea Hernandez Scale ( 0 0-10) Exertion Hernandez Scale 6 (6-20) Interpretation Interpretation: The patient ambulated beginning on room air without assistive devices. Pretesting oxygen saturation was noted to be 96% on room air. With ambulation, the wanda oxygen saturation was 94%. There was no significant exertional oxygen desaturation. Recommendations Recommendations: There is no indication for the use of supplemental oxygen at this time.
== END | disposition home or self-care (01) ==
PROVIDERS: PCP Family Medicine; Referring Provider Nurse Practitioner Acute Care; Visit Provider Nurse Practitioner Acute Care
DX: R06.02 Shortness of breath (principal)
CPT/HCPCS: 94618

== ENCOUNTER → 2025-02-11 | Outpatient (CLI) | payer OTHER, SELFPAY ==
--- NOTE | 2025-02-11 07:30 | PET_ITS ---
PROCEDURE: PET/CT TUMOR BASE -THIGH INIT 02/11/2025 REASON FOR EXAM: 49 y/o F with LUNG. Squamous cell carcinoma of the right upper lobe. TECHNIQUE: Following the intravenous administration of radionucleotide, image acquisition on a dedicated PET/CT unit was performed at one hour post injection. A preliminary CT study encompassing the Skull base, neck, chest, abdomen, pelvis, and proximal thighs was performed for purposes of attenuation correction and anatomic localization. The proximal thighs were also included. The patient's blood glucose level was 95 mg/dL (allowable range: 50-180 mg/dL). RADIOPHARMACEUTICAL: 13.807 mCi 18F-FDG (Fluorodeoxyglucose F18) IV was injected into he patient. RADIATION DOSE SUMMARY: Effective Dose: Approximately 7 mSv for a standard whole-body PET scan. Organ Doses: Varies by organ, with higher doses typically to the bladder, liver, and brain. COMPARISON: COMPARISON FROM CT, PET OR OTHER PERTINENT EXAMS: Chest CT of 01/07/2025. FINDINGS: Physiologic uptake: There may be expected metabolic uptake within the brain, tongue and floor of the mouth and larynx/vocal cords, heart, anna (many normal individuals have hilar uptake in less than 3 nodes with mildly avid hilar nodes less than 2.7 SUV), liver and spleen, system, and GI tract and symmetric muscle uptake. FDG AVID AND NON-AVID LESIONS. Reported avid SUV values (g/mL*) are maximum SUV. NECK: There are no significant neck abnormalities. CHEST: Chest wall- There are no significant chest wall abnormalities. Axilla- There are no significant axillary abnormalities. Lung parenchyma and anna: The previously noted right hilar mass shows hypermetabolic activity, with SUV max of 14.5. The large right upper lobe previously noted mass shows hypermetabolic activity, with SUV max of 16.4. Stable pulmonary emphysematous changes. Mediastinum- There are no significant hilar or mediastinal adenopathy. Pleura- There are no significant pleural abnormalities. ABDOMEN: Cholelithiasis. [id number] sigmoid and descending colon diverticulosis. Stomach- No significant abnormalities. Liver- No significant abnormalities. Spleen- No significant abnormalities. Pancrease- No significant abnormalities. Kidneys- No significant abnormalities. Bowel- Normal bowel activity. Spine- No significant abnormalities. PELVIS: Bowel- Normal physiologic bowel activity is identified. Masses- There are no pelvic masses. Bones- With the use of bone window settings, there are no osteolytic or osteoblastic lesions. There are no FDG avid lesions within the visualized portion of the axial skeleton. PET/PET/CT Tumor Base -Thigh Init IMPRESSION: FDG avid- The previously identified right upper lobe mass demonstrates hypermetabolic act ivity, as does the right hilar nodule/mass. Both areas are concerning for the presence of malignancy. Other: Cholelithiasis. [id number] sigmoid and descending colon diverticulosis. Please note the low-dose CT scan was performed to facilitate PET image reconstr uction and anatomic localization and does not replace a diagnostic CT. Any diagnostic CT requested and performed at the time of the PET will be reported separately. Reading Location: [place] [address]
--- OUTSIDE RECORDS SUMMARY | 2025-02-11 07:30 | XMS RPT_ITS | CCD ---
Author Organization [facility] CliniSyhi Care Team Providers Care Bank Operations Officer Name Role Phone Arriaga INTELLIGENCE OPERATIONS Virginie E Unavailable Unavailable Arriaga ROSARIO, Virginie E Unavailable Unavailable Unavailable Primary Care Provider Unavailmoni e Edward Martinez MD Primary Care Provider [...] Joann Live MD Primary Care Provider Wayne SOCIAL SERVICE MANAGER-CChayo Attending Provider Wayne GARLAND-CChayo Referring Provider Negin Cochran Attending Provider Dr. Joann Live MD Primary Care Provider Dr. Joann Live MD Referring Provider Kristina GARLAND-C, Negin Referring Provider [place] NETWORK CABLE INSTALLER.ENDOCRINOLOGY NURSE, Kandice M Unavailable [phone] Negin Cochran Other Provider Dr. Brodie Low DO [facility]ending Provider [facility] Primary Care Unavailable Miedel, Joann Referring Unavailable Wayne, Chayo Attending Unavailable Miedel, Joann Primary Care Unavailable Acevedo SOCIAL SERVICE MANAGER, Negin Attending Unavailable Acevedo SOCIAL SERVICE MANAGER, Negin Referring Unavailable Miedel, Joann Primary Care Unavailable Acevedo SOCIAL SERVICE MANAGER, Negin Referring Unavailable Acevedo SOCIAL SERVICE MANAGER, Negin Attending Unavailable Miedel, Joann Primary Care Unavailable Acevedo SOCIAL SERVICE MANAGER, Negin Referring Unavailable Acevedo SOCIAL SERVICE MANAGER, Negin Attending Unavailable Justus Robertson Attending Unavailable Justus Robertson Consulting Unavailable Dced, Joann Primary Care Unavailable Miedel, Joann Referring Unavailable Miedel, Joann Primary Care Unavailable Shabnam Haynes Attending Unavailable Miedel, Joann Primary Care Unavailable Acevedo SOCIAL SERVICE MANAGER, Negin Consulting Unavailable Acevedo SOCIAL SERVICE MANAGER, Negin Referring Unavailable Brodie Low Attending Unavailable Miedel, Joann Primary Care Unavailable Miedel, Joann Referring Unavailable Acevedo SOCIAL SERVICE MANAGER, Negin Attending Unavailable Miedel, Joann Primary Care Unavailable Miedel, Joann Referring Unavailable Acevedo SOCIAL SERVICE MANAGER, Negin Attending Unavailable Dcedel, Joann Primary Care Unavailable Acevedo SOCIAL SERVICE MANAGER, Negin Referring Unavailable Acevedo SOCIAL SERVICE MANAGER, Negin Attending Unavailable Dcedel, Joann Primary Care Unavailable Acevedo SOCIAL SERVICE MANAGER, Negin Referring Unavailable Acevedo SOCIAL SERVICE MANAGER, Negin Attending Unavailable Miedel, Joann Primary Care Unavailable Miedel, Joann Referring Unavailable Miedel, Joann Attending Unavailable Dcedel, Joann Primary Care Unavailable Acevedo SOCIAL SERVICE MANAGER, Negin Attending Unavailable Acevedo SOCIAL SERVICE MANAGER, Negin Referring Unavailable Miedel, Joann Primary Care Unavailable Wayne, Chayo Referring Unavailable Wayne, Chayo Attending Unavailable Dcedel, Joann Primary Care Unavailable Miedel, Joann Referring Unavailable Justus Robertson Attending Unavailable Allergies Allergy Classification Reported Allergen(s) Allergy Type Date of Onset Reaction(s) Facility (13 sources) Sulfamethoxazole Drug Allergy 3 Nausea/Vom/[place] [facility] (13 sources) Trimethoprim Drug Allergy 3 Nausea/Vom/Azalia rrhea [facility] (1 source) Sulfamethoxazole Drug Allergy 5 [facility] (1 source) Trimethoprim Drug Allergy 5 [facility] Medications Current Medications Medication Drug Class(es) Dates Sig (Normalized) Sig (Original) [id number] 200 actuat albuterol 0.09 mg/actuat metered dose inhaler (6 sources) beta2-Adrenergic Agonist Start: 01-08-2025 Albuterol Sulfate [...] January 07, 2017 11:00pm Collagen Peptide powder (7 sources) Start: 01-07-2025 Collagen Pepti de powder Active PO DAILY January 07, 2025 12:00am diclofenac sodium 0.01 mg/mg topical gel (9 sources) Nonsteroidal Anti-inflammatory Drug Start: 08-15-2024 apply 2 g topically four times daily as needed for pain Diclofenac Sodium 1 % gel Active 2 g TOPICAL .qid as needed for pain August 15, 2024 1:00am ibuprofen 200 mg oral tablet (20 sources) Nonsteroidal Anti-inflammatory Drug Start: 08-15-2024 take 1 tablet by mouth every six hours as needed for pain Ibuprofen 200 mg tablet Active 200 mg PO EVERY 6 HOURS as needed for pain August 15, 2024 1:00am On Hold: pt held take 1 tablet by kenia th every six hours as needed Ibuprofen 100 mg tablet Take 100 mg by mouth every 6 hours as needed. Active Comment on above: Take 100 mg by mouth every 6 hours as needed. Magnesium (15 sources) Start: 01-07-2025 take 1 tablet by [...] Multivitamin (Daily Multiple Vitamin) 1 EACH tablet (13 sources) Start: 11-24-2015 take 1 tablet by [...] kenia th once daily. polyethylene glycol 3350 607424 mg / potassium chloride 2980 mg / sodium bicarbonate 6720 mg / sodium chloride 5840 mg / sodium sulfate 09756 mg powder for oral solution (1 source) Osmotic Laxative Start: 11-15-2022 End: 11-15-2022 peg 3350-electrolytes (COLYTE) 240-22.72-6.72 -5.84 gram solution Indications: Special screening for malignant neoplasms, colon Take 4,000 mL by mouth one time only for 1 dose. 4000 mL 0 11/15/2022 11/15/2022 Active Comment on above: Take 4,000 mL by kenia th one time only for 1 dose. Turmeric extract (9 sources) Start: 08-15-2024 take 1 capsule by mouth once daily Turmeric 400 mg capsule Active 400 mg PO daily August 15, 2024 1:00am Completed/Discontinued Medications Medication Drug Class(es) Dates Sig (Normalized) Sig (Original) acetaminophen 325 mg / oxyCODONE hydrochloride 5 mg oral tablet (13 sources) Opioid Agonist Start: 07-08-2023 End: 08-15-2024 [...] July 08, 2023 Amox-Clav 875-125 mg Tablet (13 sources) Start: 07-04-2019 End: 08-15-2024 Amox-Clav 875-125 mg Tablet Discontinued 1 {tbl} PO TWICE A DAY July 04, 2019 1:00am August 15, 2024 12:35pm Start: 07-04-2019 take 1 tablet by kenia th twice daily Amox-Clav 875-125 mg Tablet Active 1 TABLET PO TWICE A DAY July 04, 2019 1:00am Start: 07-04-2019 take 1 tablet by kenia th twice daily Amox-Clav 875-125 mg Tablet Active 1 TABLET PO TWICE A DAY July 04, 2019 12:00am amoxicillin/potassium clav (AUGMENTIN ORAL) (1 source) amoxicillin/pota ssium clav (AUGMENTIN ORAL) Take 875 mg by mouth. 0 Active Comment on above: Take 875 mg by mouth . B-Complex With Vitamin C 1 EACH tablet (9 sources) Start : 01-08 End: 08-15 take [...] on above: Take 1 capsule by mo ut three times daily as needed for Cough. cetirizine hydrochloride 10 mg oral tablet (16 sources) Histamine-1 Receptor Antagonist Start : 01-20 ZYRTEC ALLERGY 10 MG CAPS take as directed CETIRIZINE HCL [id number] Virginie Arriaga LPN Start: 11-21-2015 take 1 capsule by mo ut once daily Cetirizine (Zyrtec) 10 MG capsule Active 10 mg PO DAILY November 21, 2015 12:00am take 1 tablet by kenia once daily cetirizine (ZYRTEC) 5 mg tablet Take 5 mg by mouth once daily. 0 Active Comment on above: Take 5 mg by mouth o nce daily. cyclobenzaprine hydrochloride 10 mg oral tablet (13 sources) Muscle Relaxant Start: End: take 1 tablet by mouth three times daily as needed for muscle spasms Cyclobenzaprine 10 mg tablet Discontinued 10 mg PO THREE TIMES A DAY as needed for Muscle Spasm 15 0 July 08, 2023 1:00am August 15, 2024 12:37pm doxycycline hyclate 100 mg oral capsule (2 sources) Tetracycline-class Drug Start: DOXYCYCLINE HYCLATE 100 MG CAPS BID DOXYCYCLINE HYCLATE [id number] Virginie Arriaga LPN methocarbamol 500 mg oral tablet (2 sources) Muscle Relaxant Start: End: take 1 tablet by mouth every six hours as needed methocarbamol (ROBAXIN) 500 mg tablet Take 1 tablet by mouth every 6 hours as needed (Pain) for up to 3 days. 12 tablet 10/18/2022 10/21/2022 Comment on above: Take 1 tablet by kenia every 6 hours as needed (Pain) for up to 3 days. MULTIPLE VITAMINS-MINERALS (2 sources) Start: DAILY MULTIVITAMIN CAPS take as directed MULTIPLE VITAMINS-MINERALS [id number] Virginie Arriaga INTELLIGENCE OPERATIONS naproxen 500 mg oral tablet (13 sources) Nonsteroidal Anti-inflammatory Drug Start: 023 End: 025 take 1 tablet by mouth twice daily Naproxen 500 mg tablet Discontinued 500 mg PO TWICE A DAY 14 July 08, 2023 1:00am August 15, 2024 12:37pm predniSONE 20 mg oral tablet (20 sources) Start: 017 End: 025 take 2 tablets by mouth once daily [...] Classification Problem Date Documented Da te Episodic/Chronic Cancer of bronchus; lung (2 sources) 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; Translations: [Malignant neoplasm of upper lobe, right bronchus or lung] 01-30-2025 Chronic Cardiac dysrhythmias (1 source) Unspecified atrial fibrillation; Translations: [Unspecified atrial fibrillation] Onset: 01-11-2025 Chronic Headache; including migraine (12 sources) Morning headache; Translations: [Morning headache] 01-08-2025 Episodic Headache; including migraine (1 source) Headache; including migraine; Translations: [Headache, unspecified] Onset: 01-08-2025 Immunizations and screening for infectious disease (1 source) Patient encounter status; Translations: [Encounter for immunization] Episodic Nonmalignant breast conditions (13 sources) Abscess of breast; Translations: [Abscess of the breast and nipple] 07-05-2019 Episodic Other aftercare (13 sources) Wound finding; Translations: [Encounter for other specified aftercare] 10-30-2016 Episodic Other aftercare (13 sources) Admission statuses; Translations: [Encounter for other specified aftercare] 11-27-2015 Episodic Other connective tissue disease (13 sources) Spasm of cervical paraspinous muscle; Translations: [Other muscle spasm] 07-08-2023 Episodic Other lower respiratory disease (13 sources) Dyspnea; Translations: [Shortness of breath] 01-08-2025 Episodic Other lower respiratory disease (12 sources) Lung mass; Translations: [Other nonspecific abnormal finding of lung field] 01-08-2025 Episodic Comment on above: 4.5 x 3.5 x 2.9 cm R UL Other lower respiratory disease (12 sources) Hypoxia; Translations: [Hypoxemia] 01-08-2025 Episodic Other lower respiratory disease (2 sources) Hypoxemia; Translations: [Hypoxemia] Onset: 01-08-2025 Episodic Other lower respiratory disease (2 sources) Shortness of breath; Translations: [Shortness of breath] Onset: 01-29-2025 Episodic Other lower respiratory disease (2 sources) Other nonspecific abnormal finding of lung field; Translations: [Other nonspecific abnormal finding of lung field] Onset: 01-08-2025 Episodic Other lower respiratory disease (1 source) Solitary pulmonary nodule; Translations: [Solitary pulmonary nodule] Onset: 02-03-2025 Episodic Other lower respiratory disease (1 source) [...] of mental health and substance abuse codes (15 sources) Tobacco use and exposure - finding; Translations: [Personal history of nicotine dependence] Onset: 01-08-2025 01-07-2025 Episodic Spondylosis; intervertebral disc disorders; other back problems (20 sources) Acute back pain with sciatica; Translations: [Lumbago with sciatica, right side] Onset: 10-19-2022 Episodic Substance-related disorders (12 sources) Tobacco user; Translations: [Nicotine dependence, unspecified, uncomplicated] Onset: 12-31-2015 12-31-2015 Chronic Unclassified (1 source) 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 Unclassified (2 sources) C34.11 - Malignant neoplasm of upper lobe, right bronchus or lung Past or Other Problems Problem Classification Problem [...] [Alcohol use disorder] Onset: 10-19-2022 10-19-2022 Episodic Unclassified (2 sources) Contact with and (suspected) exposure to other hazardous, chiefly nonmedicinal, chemicals; Translations: [Contact with and (suspected) exposure to other hazardous, chiefly nonmedicinal, chemicals] Onset: 01-20-2017 01-20-2017 Episodic Unclassified (1 source) Patient encounter status 12-24-2024 Results Test Name Value Interpretation Reference Range Facility Pulmonary Visit Reporton Pulmonary Visit Report [facility] [place] [address] [place] [address] OFFICE VISIT Date of Service: 01/30/25 MR#: [id number] Acct: [id number] Name: ROSARIO KAISER Rep #: [id number] : 1975 Provider: VADIM Acevedo Age/Sex: 49/F [place] [facility] Status: Signed Assessment and Plan Assessment and Plan (1) 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 Obtaining a PET scan for staging. Fast pass initiated. Follow-up in 6 months for routine checkup. She has been encouraged to contact our office if she develops any difficulty with breathing or has new symptoms in the meantime. She is agreeable with this plan. (2) Shortness of breath: Status: Acute Plan: COPD ruled out. Exertional hypoxia ruled out. Shortness of breath is likely related to airway obstruction from the mass. Continue to monitor and repeat testing as needed. Return to the office in 6 months for routine follow-up. Orders: Orders PET/CT Tumor Base -Thigh Init Today C34.11 - Malignant neoplasm of upper lobe, right bronchus or lung Referrals Fast Pass: Oncology Referral [facility] C34.11 - Malignant neoplasm of upper lobe, right bronchus or lung Plan I have spent 36 minutes today reviewing labs, records and history. Time includes coordinating care, interpretation of tests, discussion with patient's other health care providers via telephone. This also includes time I spent with the patient for exam, treatment plan and education as well as documenting clinical information. Plan Details Additional Comments: This note was generated with [employer]ova dictation software. It may contain incorrect words, spelling, and punctuation that were not noted in checking the note before signing. Follow Up: 6 Months HPI Results Chief Complaint: Test results HPI Comments Details: This patient presents to the office today to discuss test results. She is ambulatory and on room air. She is accompanied today by her son. She has not recently been seen in the ED or urgent care for any respiratory illness. She has not required any antibiotics or prednisone for any breathing problems. If you recall, she has a greater than 08-vkeb-xckz smoking history quitting completely January 2024. She is not currently on any inhalers. She does have shortness of breath on exertion. She has occasional wheezing. She also reports an occasional cough that is nonproductive. She denies any palpitations. She denies any chest pain but does have some right upper quadrant pain at times. She denies any fever, chills or body aches. Test results personally viewed with the patient: CT biopsy of the right lung completed on January 21, 2025. Tissue pathology has returned and is consistent with squamous cell carcinoma. Pulmonary function test completed on January 21, 2025. Impression is isolated mild reduction in diffusing capacity. FEV1 75% of predicted. Walking oximetry completed on January 23, 2025. She did not become hypoxic and does not qualify for supplemental oxygen. Alpha-1 antitrypsin genetic testing completed, results are M/M. Normal. Intake Vital Signs 01/23/25 08:05 01/30/25 08:47 Height 5 ft 6 in 5 ft 6 in Weight: 152 lb 150 lb BMI 24.2 BP 123/86 H Blood Pressure Location Rt brachial Position Sitting Respiration 16 Pulse 94 87 Pulse Source Monitor Temp 97.3 F L Temperature Source Temporal Artery Pulse Oximetry (%) 96 97 Oxygen Delivery Method room air Intake Visit Reasons: Results Pasting Machine Offbearer Required: No DME Vendor: N/a Accompanied by: Son Is patient in pain?: No Allergies sulfamethoxazole (From Bactrim) Adverse Reaction (Verified 01/30/25 09:17) Nausea/Vom/Diarrhea trimethoprim (From Bactrim) Adverse Reaction (Verified 01/30/25 09:17) Nausea/Vom/Diarrhea Medications ???Medication ???Instructions ???Recorded ???Confirmed ???Type cetirizine 10 mg capsule (Zyrtec) 10 mg PO DAILY 11/21/15 01/30/25 History multivitamin (Daily Multiple 1 ea PO DAILY 11/24/15 01/30/25 Hi story tablet) diclofenac sodium 1 % topical gel 2 g topical .qid PRN pain 5 01/30/25 History ibuprofen 200 mg tablet 200 mg PO Q6H PRN pain 08/15/24 History Held on 01/21/25. Instructions: pt held turmeric 400 mg capsule 400 mg PO QDAY 08/15/24 01/30/25 H istory Collagen Peptide powder PO DAILY 01/07/25 01/30/25 History magnesium 250 mg tablet 250 mg PO QDAY 01/07/25 01/30/25 H istory albuterol sulfate 90 mcg/actuation 2 inh inhalation Q4H PRN shortne ss 01/08/25 01/30/25 Rx aerosol inhaler (Ventolin HFA) of breath or wheezing #18 grams Have you fallen in the past year?: No [facility] Medical History His (more content not included)... Normal [facility] 6 Minute Walk Teston 025 6 Minute Walk Test y [facility]Neurology [address] [place] [address] MR#: [id number] Acct: [id number] Name: ROSARIO KAISER Rep #: [id number] : 1975 49 From: Brodie Low DO Referring Dr: Negin Acevedo SOCIAL SERVICE MANAGER SOCIAL SERVICE MANAGER-C Status: REG CLI Location: PSN Date: Sex: F C PSN 6 Minute Walk Test 6 Minute Walk Test 6 Minute Walk Test: 6 Minute Walk Test PSN:6-Minute Walk Test Start: 01/23/25 08:20 Freq: Status: Active Protocol: [id number] Document 01/23/25 08:05 [facility] (Rec: 01/23/25 08:24 [facility]B [id number]) 6 Minute Walk Test Date Performed 01/23/25 Time Performed 08:05 Height 5 ft 6 in Weight: 152 lb Weight in Pounds 152.[address]: Negin Acevedo NP Assistive device None used: Pre-test Oxygen Delivery Room Air Method Pulse Ox (%) 96 Pulse Rate (60-100 94 beats/min) Dyspnea Hernandez Scale ( 0 0-10) Exertion Hernandez Scale 6 (6-20) 1st minute Oxygen Delivery Room Air Method Pulse Ox (%) 96 Pulse Rate (60-100 110 H beats/min) 2nd minute Oxygen Delivery Room Air Method Pulse Ox (%) 96 Pulse Rate (60-100 107 H beats/min) 3rd minute Oxygen Delivery Room Air Method Pulse Ox (%) 96 Pulse Rate (60-100 108 H beats/min) 4th minute Oxygen Delivery Room Air Method Pulse Ox (%) 97 Pulse Rate (60-100 110 H beats/min) 5th minute Oxygen Delivery Room Air Method Pulse Ox (%) 96 Pulse Rate (60-100 109 H beats/min) 6th minute Oxygen Delivery Room Air Method Pulse Ox (%) 96 Pulse Rate (60-100 110 H beats/min) Dyspnea Hernandez Scale ( 1 0-10) Exertion Hernandez Scale 6 (6-20) Post-test Oxygen Delivery Room Air Method Pulse Ox (%) 96 Pulse Rate (60-100 94 beats/min) Dyspnea Hernandez Scale ( 0 0-10) Exertion Hernandez Scale 6 (6-20) Interpretation Interpretation: The patient ambulated beginning on room air without assistive devices. Pretesting oxygen saturation was noted to be 96% on room air. With ambulation, the wanda oxygen saturation was 94%. There was no significant exertional oxygen desaturation. Recommendations Recommendations: There is no indication for the use of supplemental oxygen at this time. 01/24/25 1136 Date Brodie Low DO CC: Date Dictated: 01/24/25 1135 Date Transcribed: 01/24/251134 Instructor Looping: Dr. Brodie Low, Signed Normal [facility] Biopsy/Inj or Needle Placeme nton 01-21-2025 Biopsy/Inj or Needle Placement [facility] Imaging Services [address] [place] [id number] Biopsy/Inj or Needle Placement MR#: [id number] Acct: [id number] Name: ROSARIO KAISER Rep #: [id number] : 1975 F 49 From: Vish oreilly MD PCP: Dr. Joann Live MD Status: [facility] Study: Biopsy/Inj or Needle Placement Date of Exam: 0 01/21/25 Exam# [id number] Ordering Dr: Negin Acevedo SOCIAL SERVICE MANAGER SOCIAL SERVICE MANAGER-C EXAM: CT-guided right lung biopsy. CLINICAL HISTORY: Nodular mass in the medial right lung apex. COMPARISON: Prior CT scan of the chest dated January 07, 2025. TECHNIQUE: Radiation dose report: CTDI L volume: 14.5 mGy. DLP: 208.33. The patient is here for CT-guided core biopsy of the right apical mass. The procedure as well as the benefits and possible complications including bleeding, infection and pneumothorax were explained to the patient. Informed consent was obtained. The patient was in the prone position. Conscious sedation was performed. The patient received 2 mg of Versed and 50 mcg of fentanyl intravenously. Conscious sedation was started at 8:51 a.m. and terminated at 9:16 a.m.. The patient was independently monitored by the department nurse. The overlying skin was prepped and draped in the usual sterile fashion. Following local anesthetic application, a 20 gauge core biopsy needle system was placed into the mass in the medial apical aspect of the right upper lobe. 6 core biopsies of the mass were obtained. The pathologist deemed the specimen adequate. FINDINGS: Successful CT-guided core biopsy of the medial right apical mass as described. Conscious sedation was performed. No immediate complication noted. CT/Biopsy/Inj or Needle Placement IMPRESSION: Successful CT-guided core biopsy of the right apical pulmonary mass. Reading Location: [place] [address] CC: VADIM Acevedo; Dr. Joann Live MD Instructor Looping: Signed Normal [facility] Chest Insp/Exp 2 Viewon Chest Insp/Exp 2 View [facility] Imaging Services [address] [place] [address] Chest Insp/Exp 2 View MR#: [id number] Acct: [id number] Name: ROSARIO KAISER Rep #: [id number] : 1975 F 49 From: Vish oreilly MD PCP: Dr. Joann Live MD Status: REG CLI Study: Chest Insp/Exp 2 View Date of Exam: 01/21/25 Exam# [id number] Ordering Dr: Vish Jennings EXAM: Chest AP inspiration expiration views. CLINICAL HISTORY: 2 hour post right lung biopsy radiographs. COMPARISON: Prior study dated earlier in the day. TECHNIQUE: Inspiration expiration views were obtained at 2 hours following the right lung biopsy. FINDINGS: No evidence of right pneumothorax. Persistent mass in the apical medial aspect of the right lung. RAD/Chest Insp/Exp 2 View IMPRESSION: No evidence of pneumothorax on the 2 hour post right lung biopsy radiographs. The patient is asymptomatic. Reading Location: [facility] CC: Dr. Vish Jennings MD; Dr. Joann Live MD Instructor Looping: Signed Normal [facility] Chest Insp/Exp 2 View [facility] Imaging Services [address] [place] [address] Chest Insp/Exp 2 View MR#: [id number] Acct: [id number] Name: ROSARIO KAISER Rep #: [id number] : 1975 F 49 From: Vish oreilly MD PCP: Dr. Joann Live MD Status: REG CLI Study: Chest Insp/Exp 2 View Date of Exam: 01/21/25 Exam# [id number] Ordering Dr: Vish Jennings EXAM: Inspiration expiration views following a right lung biopsy. CLINICAL HISTORY: Status post immediate right lung biopsy. COMPARISON: None TECHNIQUE: AP inspiration expiration views were obtained. FINDINGS: EKG electrodes are seen. There is no evidence of pneumothorax on the immediate post right lung biopsy radiographs. Persistent mass in the medial aspect of the right lung apex. RAD/Chest Insp/Exp 2 View IMPRESSION: Status post right lung biopsy. No evidence of pneumothorax on the immediate post right lung biopsy radiographs. Reading Location: [facility] CC: Dr. Vish Jennings MD; Dr. Joann Live MD Instructor Looping: Signed Normal [facility] Immunohistochemical Stainson 01-21-2025 Immunohistochemical Stains -------- Patient Age/Sex Location Account Attending Physician -------- ROSARIO KAISER 49/F CT [id number] VADIM Poe -------- Specimen: [id number] Received: 01/21/25 Status: JAMAAL Silva Num: [id number] Spec Type: ASP RAD Subm Dr: VADIM Poe HEADER OPERATION: CT guided right lung biopsy PRE-OP DIAGNOSIS: Other nonspecific abnormal findings TISSUE SUBMITTED: A. Lung biopsy, 20g x 6 -------- MICROSCOPIC DIAGNOSIS A. Lung, right, CT-guided core biopsy: - Squamous cell carcinoma - see note and Comment. Note: The tumor cells are negative for CK7 and CK20, but strongly and diffusely positive for CK5/6 and p40, consistent with squamous differentiation. TTF-1 and Napsin A are negative. The IHC stains are not conclusive as to the origin of this tumor. Correlation with clinical and imaging findings is required to determine the primary site. COMMENT The specimen is evaluated at the time of biopsy by Dr. Rodriguez. Immediate Evaluation = 3. Malignant. 4. Malignant. Selected slides/images were reviewed in intradepartmental consultation by Dr Gustavo Hoff (thoracic pathology division, [facility]). MICROSCOPIC DESCRIPTION Slides are reviewed. All matched controls reacted appropriately. These tests were developed and their performance characteristics determined by [facility]. They may not have been cleared or approved by the U.S. Food and Drug Administration. The FDA has determined that such clearance or approval is not necessary.??? The above immunohistochemical/d ualISH???markers are reviewed by the Pathologist. GROSS DESCRIPTION A. Received in formalin labeled with the patient's name and date of are multiple tissue core fragments, 0.1 cm to 0.6 cm in length by <0.1 cm in diameter. The specimen is evaluated intraoperatively and is entirely submitted in 1 cassette. HI 01/21/2025 CPT:35541,35054,81891 ,13038h0 -------- Patient Age/Sex Location Account Attending Physician -------- ROSARIO KAISER 49/F CT [id number] VADIM Poe -------- Signed (signature on file) Dr. Leann Rodriguez MD 01/28/25 1507 -------- Normal [facility] Comment on above: Performed By: #### P EBRNAHI #### [facility] [address] [place], [place], [id number] Activated partial thrombopla stin time (aPTT) in platelet poor plasma by coagulation aOrdered By: Negin Acevedo on 01-08-2025 aPTT Coag (PPP) [Time] 25.1 s 24.1-36.2 [facility] International normalized rat io (INR) calculationOrdered By: Negin Acevedo on 01-08-2025 INR Coag (Bld) [Relative time] 0.9 {INR} [facility] Partial Thromboplast Timeon 01-08-2025 aPTT Coag (Bld) [Time] 25.1 s Normal 24.1-36.2 [facility] Comment on above: Performed By: #### L 300.4310, L100.1900, L300.3900 #### [facility] [address] [place], [address] Platelet Counton 01-08-2025 Platelets (Bld) [#/Vol] 284 10*3/uL Normal 150-450 [facility] Comment on above: Performed By: #### L 300.4310, L100.1900, L300.3900 #### [facility] [address] [facility] [place], [address] Platelet countOrdered By: Jose Acevedo on 01-08-2025 Platelets (Bld) [#/Vol] 284 10*3/uL 150-450 [facility] Prothrombin Time w/INRon INR Coag (PPP) [Relative time] 0.9 {INR} Normal [facility] Comment on above: Performed By: #### L 300.4310, L100.1900, L300.3900 #### [facility] [address] [place], [address] PT Coag (PPP) [Time] 12.0 s Normal 11.7-14.9 [facility] Comment on above: Performed By: #### L 300.4310, L100.1900, L300.3900 #### [facility] [address] [place], [address] Prothrombin timeOrdered By: Negin Acevedo on 01-08-2025 PT Coag (PPP) [Time] 12.0 s 11.7-14.9 [facility] Pulmonary Visit Reporton Pulmonary Visit Report [facility] [place] [address] [place] [address] OFFICE VISIT Date of Service: 01/08/25 MR#: [id number] Acct: [id number] Name: ROSARIO KAISER DANIEL Rep #: [id number] : 1975 Provider: VADIM Acevedo Age/Sex: 49/F [place] [facility] Status: Signed with Addenda ADDENDUM by Alda [...] Additional Comments: This note was generated with [employer] dictation software. It may contain incorrect words, [...] for any breathing problems. She has a 15-hvqq-nyec smoking history quitting completely January 2024. She smoked a minimum of a pack a day, often times a pack and half a day and admits that sometimes 2 packs/day. She is not currently on any maintenance inhalers. She has never performed a pulmonary function test. She states that back in 2013 doctor prescribed her (more content not included)... Normal [facility] Low Dose CT Lung Screeningon 01-07-[address] Lung Screening [facility] Imaging Services [address] [place] [address] Lung Screening MR#: [id number] Acct: [id number] Name: ROSARIO KAISER Rep #: [id number] : 1975 F 49 From: Queta Velez PCP: Dr. Joann Live MD Status: [facility] Study: Low Dose CT Lung Screening Date of Exam: 01/07 Exam# [id number] Ordering Dr: Chayo Black NP SOCIAL SERVICE MANAGER -C PROCEDURE: LOW DOSE CT LUNG SCREENING 01/07/2025 REASON FOR EXAM: LUNG CANCER SCREENING TECHNIQUE: LOW DOSE CT LUNG SCREENING Coronal and Sagittal reconstruction series were provided. One or more dose reduction techniques were used (e.g., Automated exposure control, adjustment of the mA and/or kV according to patient size, use of iterative reconstruction technique). REFERENCE LINK: [employer] Lung-RADS RADIATION DOSE SUMMARY: DLP: 59 mGycm [...] cm within the right anna. Reading Location: [id number] CC: SOCIAL SERVICE MANAGER-Kiko Black; Dr. Joann Live MD Instructor Looping: Signed Normal [facility] Oncology Visit Reporton 12-16 Oncology Visit Report [facility] [address] [place] [address] OFFICE VISIT Date of Service: 01/07/25 1234 MR#: [id number] Acct: [id number] Name: EDMUNDOROSARIO Rep #: [id number] : 1975 From: Chayo Black NP SOCIAL SERVICE MANAGER -C Age/Sex: 49/F [place] [facility] Status: Signed HPI HPI Reviewed eligibility criteria: [...] (Updated 01/07/25 @ 12:51 by Chayo Black SOCIAL SERVICE MANAGER, SOCIAL SERVICE MANAGER-C) History of tobacco use Encounter for screening [...] cm spi (more content not included)... Normal [facility] Colonoscopy Reporton 025 Colonoscopy Report [facility] Medical Records Department [address] [place] [address] Colonoscopy Report MR#: [id number] Acct: [id number] Name: ROSARIO KAISER Rep #: [id number] : 1975 48 From: Justus Robertson MD PCP: Dr. Joann Live MD Status:[facility] Patient Name: Rosario Kaiser Procedure Date: 10/22/2024 8:46 AM Date of [...] present medications. Procedure Code(s): --- Professional --- 65638, Colonoscopy, flexible; diagnostic, including collection of specimen(s) by brushing or washing, when performed (separate procedure) Diagnosis Code(s): --- Professional --- Z12.11, Encounter for screening for malignant neoplasm of colon K57.30, Diverticulosis of large intestine without perforation or abscess without bleeding K64.8, Other hemorrhoids CPT copyright 2021 [employer]. All rights reserved. The codes documented in this report are preliminary and upon orthotics prosthetics assistant review may be revised to meet current compliance requirements. Justus Robertson MD 10/22/2024 9:23:43 AM This report has been signed electronically. Number of Addenda: 0 Note Initiated On: 10/22/2024 8:46 AM 10/22/24 0924 Date Justus Robertson MD Cosigner Signature: Date (if indicated) CC: Dr. Joann Live MD; Dr. Justus Robertson MD Date Dictated: 10/22/24 0846 Date Transcribed: Instructor Looping: ERWIN Signed [facility] MR/POSTOP.[place] 10-22-2024 MR/POSTOP.[facility] Medical Records Department [address] [place] [address] Anesthesia Postop Eval I 10/22/24 0923 MR#: [id number] Acct: [id number] Name: ROSARIO KAISER Rep #: [id number] : 1975 48 From: Dean [place] PCP: Dr. Joann Live MD Status:[facility] Y Race: C Location: [place] [address] Anesthesia: Postop Eval I Current Vital Signs [...] document: Postop Eval 1 completed: Yes 10/22/24923 Date Dean Shipley Signature: Date CC: Signed Normal [facility] MR/[id number] 10-22-2024 [facility] Medical Records Department [address] [place] [address] Anesthesia Postop Eval II 10/22/24 1229 MR#: [id number] Acct: [id number] Name: JOSE E KAISERRA SANCHEZ Rep #: [id number] : 1975 48 From: Wolfgang Roberts MD PCP: Dr. Joann Live MD Status:[facility] Y Race: C Location: EN [...] MD Cosigner Signature: Date CC: Signed Normal [facility] Breast imaging reportOrdered By: Valeria Mccord on 09-10-2024 Study report [facility] Imaging Services [address] [place] [address] SCRN MAMM (CAD)W/SANJUANA BILAT MR#: [id number] Acct: [id number] Name: ROSARIO KAISER Rep #: [id number] : 1975 F 48 From: Hodan Mccord MD PCP: Dr. Joann Live MD Status: [facility] Study:SCRN MAMM (CAD)W/SANJUANA BILAT Date of Exa m: 09/10/24 Exam# [id number] Ordering Dr: Endy Live MD PROCEDURE: SCRN [...] of the results by letter. Reading Location: [facility] CC: Dr. Joann Live MD ~ Instructor Looping: Signed [facility] SCRN MAMM (CAD)W/SANJUANA BILATo n 09-10-2024 SCRN MAMM (CAD)W/SANJUANA BILAT [facility] Imaging Services [address] [place] [address] SCRN MAMM (CAD)W/SANJUANA BILAT MR#: [id number] Acct: [id number] Name: ROSARIO KAISER Rep #: [id number] : 1975 F 48 From: Valeria Mccord MD PCP: Dr. Joann Live MD Status: [facility] Study: SCRN MAMM (CAD)W/SANJUANA BILAT Date of Exam: 08/18 12/08 Exam# [id number] Ordering Dr: Joann Live MD PROCEDURE: SCRN [...] of the results by letter. Reading Location: [facility] CC: Dr. Joann Live MD Instructor Looping: Signed Normal [facility] Absolute lymphocyte countOrd ered By: Joann Live on 08-08-2023 Lymphocytes Auto (Unsp spec) [#/Vol] 2.96 10*3/uL 0.83-4.51 [facility] Automated lymphocyte count a s percentage of total leukocytesOrdered By: Joann Live on 08-08-2023 Lymphocytes/100 WBC Auto (Unsp spec) 39.3 % 19-41 [facility] Basophil percentageOrdered B y: Joann Live on 08-08-2023 Basophils/100 WBC (Bld) 0.4 % 0-1 [facility] Bilirubin [Mass/Vol] 0.30 mg/dL 0.20-1.00 [facility] Comment on above: For patients on eltr ombopag therapy, use of Dimension [place] TBIL is not recommended. Chloride [Moles/Vol] 110 mmol/L 98-107 [facility] Eosinophils/100 WBC (Bld) 1.3 % 0-5 [facility] Glucose [Mass/Vol] 92 mg/dL 74-106 [facility] Hemoglobin (Bld) [Mass/Vol] 13.3 g/dL 12.0-15.0 [facility] Monocytes/100 WBC (Bld) 5.8 % 0-10 [facility] Neutrophils (Bld) [#/Vol] 4.0 10*3/uL 2.0-7.7 [facility] Neutrophils/100 WBC (Bld) 52.9 % 47-70 [facility] Potassium [Moles/Vol] 3.7 mmol/L 3.5-5.1 [facility] Protein [Mass/Vol] 7.7 g/dL 6.4-8.2 [facility] Sodium [Moles/Vol] 143 mmol/L 136-145 [facility] WBC (Bld) [#/Vol] 7.5 10*3/uL 4.4-11.0 [facility] Determination of erythrocyte mean corpuscular volume (MCV)Ordered By: Joann Live on 08-08-2023 MCV (RBC) [Entitic vol] 94.8 fL 81-99 [facility] Erythrocyte distribution wid th ratioOrdered By: Joann Live on 08-08-2023 Erythrocyte distribution width (RBC) [Ratio] 13.2 % 11.6-14.6 [facility] Erythrocyte distribution wid th standard deviationOrdered By: Joann Live on 08-08-2023 Erythrocyte distribution width (RBC) [Entitic vol] 45.8 fL 35.1-43.9 [facility] Hematocrit Auto (Bld) [Volum e fraction]Ordered By: Joann Live on 08-08-2023 Hematocrit (Bld) [Volume fraction] 41.7 % 37-47 [facility] Immature granulocytes/100 WB C Auto (Bld)Ordered By: Joann Live on 08-08-2023 Immature granulocytes/100 WBC (Bld) 0.300 % 0.0-0.9 [facility] Comment on above: IG% - Immature Granu locytes (promyelocytes, myelocytes and metamyelocytes) > 1% indicates that a LEFT SHIFT is Present. Laboratory - Chemistry and C hemistry - challengeOrdered By: Joann Live on 08-08-2023 Albumin/Globulin [Mass ratio] 1.3 {ratio} 0.9-2.4 [facility] ALP [Catalytic activity/Vol] 84 U/L 45-117 [facility] ALT [Catalytic activity/Vol] 31 U/L 13-56 [facility] CO2 [Moles/Vol] 29.0 mmol/L 21.0-32.0 [facility] Globulin (S) [Mass/Vol] 3.4 g/dL 2.2-4.2 [facility] Urea nitrogen/Creatinine [Mass ratio] 27.1 mg/mg 10-20 [facility] - Hematology and Cell countsOrdered By: Joann Live on 08-08-2023 MCH (RBC) [Entitic mass] 30.2 pg 27.0-32.0 [facility] MCHC (RBC) [Mass/Vol] 31.9 g/dL 32-36 [facility] Nucleated RBC/100 WBC (Bld) [Ratio] 0 % 0-5 [facility] Platelets (Bld) [#/Vol] 267 10*3/uL 150-450 [facility] No Panel InformationOrdered By: Joann Live on 08-08-2023 Estimated GFR (MDRD) Amer 140 mL/min >60 [facility] Comment on above: GFR Calc Estimated GFR (MDRD) Non-Af Amer 115 mL/min >60 [facility] Comment on above: Non- GFR Calc Platelet mean volume Aneudy-Ec ker (Bld) [Entitic vol]Ordered By: Joann Live on 08-08-2023 Platelet mean volume (Bld) [Entitic vol] 10.6 fL 6.2-12.0 [facility] RBC Auto (Bld) [#/Vol]Ordere d By: Joann Live on 08-08-2023 RBC (Bld) [#/Vol] 4.40 10*6/uL 4.2-5.4 [facility] Serum or plasma calcium radha urement (mass/volume)Ordered By: Joann Live on 08-08-2023 Calcium [Mass/Vol] 9.4 mg/dL 8.5-10.1 [facility] Serum or plasma creatinine m easurement (mass/volume)Ordered By: Joann Live on 08-08-2023 Creatinine [Mass/Vol] 0.59 mg/dL 0.55-1.02 [facility] Comment on above: The validity of the calculated GFR & GFRAA in patients over 70 years has not been determined. Clinical correlation is essential. Serum or plasma thyroid stim ulating hormone (TSH) measurement (units/volume)Ordered By: Joann Live on 08-08-2023 TSH Qn 1.15 uIU/mL 0.358-3.74 [facility] Serum or plasma urea nitroge n measurement (mass/volume)Ordered By: Joann Live on 08-08-2023 Urea nitrogen [Mass/Vol] 16 mg/dL 7-18 [facility] Thin prep Papanicolaou smear with manual screeningOrdered By: Joann Live on 08-08-2023 Thin prep Papanicolaou smear with manual screening 4.3 g/dL 3.2-5.0 [facility] Thin prep Papanicolaou smear with manual screening 17 U/L 15-37 [facility] Thin prep Papanicolaou smear with manual screening 4 5-15 [facility] HERMILA DIAG W SANJUANA BILATERALon 12-06-2022 [facility] No Panel Informationon 12-06 [facility] HERMILA SCREENINGon 10-25-2022 [facility] XR Lumbar spine 3 Viewson IMPRESSION: Lumbar spine degenerative changes with L5-S1 disc space narrowing. Instructor Looping: PSCB Transcribe Date/Time: Oct 20 2022 2:11P Dictated by : JEANA YU MD This examination was interpreted and the report reviewed and electronically signed by: JEANA YU MD on Oct 20 2022 2:15PM [facility] DIVISION OF RADIOLOGY * * *Final Report* [...] spine are presented. FINDINGS: There are five eyi-egc-qqlobju lumbar vertebrae. No fracture or subluxations are noted. L5-S1 disc space narrowing is demonstrated, with endplate sclerosis. There is mild osteophyte formation. DIVISION OF RADIOLOGY Provider, Augusto Shafer - 10/20/2022 * * *Final Report* * [...] spine are presented. FINDINGS: There are five gsz-bpo-tvgtpqa lumbar vertebrae. No fracture or subluxations are noted. L5-S1 disc space narrowing is demonstrated, with endplate sclerosis. There is mild osteophyte formation. IMPRESSION IMPRESSION: Lumbar spine degenerative changes with L5-S1 disc space narrowing. Instructor Looping: PSCB Transcribe Date/Time: Oct 20 2022 2:11P Dictated by : JEANA YU MD This examination was interpreted and the report reviewed and electronically signed by: JEANA YU MD on Oct 20 2022 2:15PM EST [facility] XR Lumbar spine 3 ViewsOrder ed By: [facility] Provider on 10-20-2022 [facility] XR Lumbar spine 3 Viewson Radiology Study observation (narrative) [facility] PROGRESSon 02-10-2020 PROGRESS HNO ID: [id number] Author: Sherry Loco) Areli Service: ? Author Type: Nurse Practitioner Type: Progress Notes Filed: 02/10/2020 11:32 AM Note Text: AMBULATORY TELEPHONE VISIT Rosario Kaiser has consented to this telephone encounter. Persons [...] Spent: 7 min Sherry Singleton APRN.ESPERANZA Normal [facility] Office Visit: [facility]:on 017 Documentation of current medications (procedure) Done Invalid Interpretation Code [facility] Work Phone: Fall risk assessment No Invalid Interpretation Code [facility] Work Phone: Vital Signs Date Time Vital Sign Value Performing Clinician Faci lity 01-30-2025 08:47-0400 Body height 167.[address] Joann Live MD Work Phone: [facility] 01-30-2025 08:47-0400 Body mass index (BMI) [Ratio] 24.2 kg/m2 Dr. Joann Live MD Work Phone: [facility] 01-30-2025 08:47-0400 Body temperature 97.3 [degF] Dr. Joann Live MD Work Phone: [facility] 01-30-2025 08:47-0400 Body weight 68.[address] Joann Live MD Work Phone: [facility] 01-30-2025 08:47-0400 Diastolic blood pressure 86 mm[Hg] Dr. Joann Live MD Work Phone: [facility] 01-30-2025 08:47-0400 Heart rate 87 /min Dr. Joann Live MD Work Phone: [facility] 01-30-2025 08:47-0400 Respiratory rate 16 /min Dr. Joann Live MD Work Phone: [facility] 01-30-2025 08:47-0400 SaO2% (BldA) [Mass fraction] 97 % Dr. Joann Live MD Work Phone: [facility] 01-30-2025 08:47-0400 Systolic blood pressure 123 mm[Hg] Dr. Joann Live MD Work Phone: [facility] 01-23-2025 08:05-0400 Body height 167.[address] Joann Live MD Work Phone: [facility] 01-23-2025 08:05-0400 Body weight 68.[address] Joann Live MD Work Phone: [facility] 01-23-2025 08:05-0400 Heart rate 94 /min Dr. Joann Live MD Work Phone: [facility] 01-23-2025 08:05-0400 SaO2% (BldA) [Mass fraction] 96 % Dr. Joann Live MD Work Phone: [facility] 01-21-2025 11:35-0400 Diastolic blood pressure 74 mm[Hg] Dr. Joann Live MD Work Phone: [facility] 01-21-2025 11:35-0400 Heart rate 74 /min Dr. Joann Live MD Work Phone: [facility] 01-21-2025 11:35-0400 Respiratory rate 18 /min Dr. Joann Live MD Work Phone: [facility] 01-21-2025 11:35-0400 SaO2% (BldA) [Mass fraction] 98 % Dr. Joann Live MD Work Phone: [facility] 01-21-2025 11:35-0400 Systolic blood pressure 119 mm[Hg] Dr. Joann Live MD Work Phone: [facility] 01-21-2025 08:10-0400 Body mass index (BMI) [Ratio] 24.5 kg/m2 Dr. Joann Live MD Work Phone: [facility] 01-21-2025 08:10-0400 Body temperature 98.7 [degF] Dr. Joann Live MD Work Phone: [facility] 01-21-2025 08:10-0400 Body weight 68.[address] Joann Live MD Work Phone: [facility] 01-08-2025 08:00-0400 Body height 167.[address] Joann Live MD Work Phone: [facility] 01-08-2025 08:00-0400 Body mass index (BMI) [Ratio] 24.5 kg/m2 Dr. Joann Live MD Work Phone: [facility] 01-08-2025 08:00-0400 Body temperature 97.4 [degF] Dr. Joann Live MD Work Phone: [facility] 01-08-2025 08:00-0400 Body weight 68.[address] Joann Live MD Work Phone: [facility] 01-08-2025 08:00-0400 Diastolic blood pressure 85 mm[Hg] Dr. Joann Live MD Work Phone: [facility] 01-08-2025 08:00-0400 Heart rate 68 /min Dr. Joann Live MD Work Phone: [facility] 01-08-2025 08:00-0400 Respiratory rate 18 /min Dr. Joann Live MD Work Phone: [facility] 01-08-2025 08:00-0400 SaO2% (BldA) [Mass fraction] 96 % Dr. Joann Live MD Work Phone: [facility] 01-08-2025 08:00-0400 Systolic blood pressure 127 mm[Hg] Dr. Joann Live MD Work Phone: [facility] 01-07-2025 12:40-0400 Body height 167.[address] Joann Live MD Work Phone: [facility] 01-07-2025 12:40-0400 Body mass index (BMI) [Ratio] 24.5 kg/m2 Dr. Joann Live MD Work Phone: [facility] 01-07-2025 12:40-0400 Body temperature 98.6 [degF] Dr. Joann Live MD Work Phone: [facility] 01-07-2025 12:40-0400 Body weight 68.[address] Joann Live MD Work Phone: [facility] 01-07-2025 12:40-0400 Diastolic blood pressure 76 mm[Hg] Dr. Joann Live MD Work Phone: [facility] 01-07-2025 12:40-0400 Heart rate 86 /min Dr. Joann Live MD Work Phone: [facility] 01-07-2025 12:40-0400 Respiratory rate 18 /min Dr. Joann Live MD Work Phone: [facility] 01-07-2025 12:40-0400 SaO2% (BldA) [Mass fraction] 96 % Dr. Joann Live MD Work Phone: [facility] 01-07-2025 12:40-0400 Systolic blood pressure 112 mm[Hg] Dr. Joann Live MD Work Phone: [facility] 10-22-2024 09:35-0400 Diastolic blood pressure 69 mm[Hg] Dr. Joann Liev MD Work Phone: [facility] 10-22-2024 09:35-0400 Systolic blood pressure 98 mm[Hg] Dr. Joann Live MD Work Phone: [facility] 10-22-2024 09:30-0400 Body temperature 96.9 [degF] Dr. Joann Live MD Work Phone: [facility] 10-22-2024 09:30-0400 Heart rate 74 /min Dr. Joann Live MD Work Phone: [facility] 10-22-2024 09:30-0400 Respiratory rate 16 /min Dr. Joann Live MD Work Phone: [facility] 10-22-2024 09:30-0400 SaO2% (BldA) [Mass fraction] 96 % Dr. Joann Live MD Work Phone: [facility] 10-22-2024 07:31-0400 Body height 167.[address] Joann Live MD Work Phone: [facility] 10-22-2024 07:31-0400 Body mass index (BMI) [Ratio] 23.8 kg/m2 Dr. Joann Live MD Work Phone: [facility] 10-22-2024 07:31-0400 Body weight [address] Joann Live MD Work Phone: [facility] 08-15-2024 11:47-0500 Body height 167.[address] Joann Live MD Work Phone: [facility] 08-15-2024 11:47-0500 Body mass index (BMI) [Ratio] 24.2 kg/m2 Dr. Joann Live MD Work Phone: [facility] 08-15-2024 11:47-0500 Body weight 68.[address] Joann Live MD Work Phone: [facility] 07-08-2023 09:15-0500 Diastolic blood pressure 79 mm[Hg] [facility] 07-08-2023 09:15-0500 Heart rate 92 /min [facility] 07-08-2023 09:15-0500 Respiratory rate 16 /min [facility] 07-08-2023 09:15-0500 SaO2% (BldA) [Mass fraction] 100 % [facility] 07-08-2023 09:15-0500 Systolic blood pressure 108 mm[Hg] [facility] 07-08-2023 07:40-0500 Body height 167.64 cm [facility] 07-08-2023 07:40-0500 Body mass index (BMI) [Ratio] 23.3 kg/m2 [facility] 07-08-2023 07:40-0500 Body temperature 97.3 [degF] [facility] 07-08-2023 07:40-0500 Body weight 65.45 kg [facility] 11-15-2022 09:06-0400 Body weight 67.13 kg Kandice Older NETWORK CABLE INSTALLER.ENDOCRINOLOGY NURSE Work Phone: [facility] 11-15-2022 09:06-0400 Diastolic blood pressure 76 mm[Hg] Kandice Older NETWORK CABLE INSTALLER.ENDOCRINOLOGY NURSE Work Phone: [facility] 11-15-2022 09:06-0400 Heart rate 86 /min Kandice Older NETWORK CABLE INSTALLER.ENDOCRINOLOGY NURSE Work Phone: [facility] 11-15-2022 09:06-0400 Respiratory rate 14 /min Kandice Older NETWORK CABLE INSTALLER.ENDOCRINOLOGY NURSE Work Phone: [facility] 11-15-2022 09:06-0400 Systolic blood pressure 112 mm[Hg] Kandice Older NETWORK CABLE INSTALLER.ENDOCRINOLOGY NURSE Work Phone: [facility] 10-18-2022 07:19-0400 Body temperature 97.5 [degF] Krislyn Aberegg PA Work Phone: [facility] 10-18-2022 07:19-0400 Body weight 68.13 kg Krislyn Aberegg PA Work Phone: [facility] 10-18-2022 07:19-0400 Diastolic blood pressure 78 mm[Hg] Krislyn Aberegg PA Work Phone: [facility] 10-18-2022 07:19-0400 Heart rate 83 /min Krislyn Aberegg PA Work Phone: [facility] 10-18-2022 07:19-0400 Respiratory rate 16 /min Krislyn Aberegg PA Work Phone: [facility] 10-18-2022 07:19-0400 SaO2% (BldA) [Mass fraction] 99 % Krislyn Aberegg PA Work Phone: [facility] 10-18-2022 07:19-0400 Systolic blood pressure 122 mm[Hg] Kan MACIEL Work Phone: [facility] 01-20-2017 09:01-0400 BMI (Body Mass Index) 23.5 kg/m2 Virginie Arriaga [facility] Work Phone: 01-20-2017 09:01-0400 Body Temperature 98.6 [degF] Virginie Arriaga [facility] Work Phone: 01-20-2017 09:01-0400 BP Diastolic 80 mm[Hg] Virginie Arriaga [facility] Work Phone: 01-20-2017 09:01-0400 BP Systolic 140 mm[Hg] Virginie Arriaga [facility] Work Phone: 01-20-2017 09:01-0400 Height 167.64 cm Virginie Arriaga [facility] Work Phone: 01-20-2017 09:01-0400 Pulse (Heart Rate) 83 /min Virginie Arriaga [facility] Work Phone: 01-20-2017 09:01-0400 Respiratory Rate 16 /min Virginie Arriaga [employer] [facility] Work Phone: 01-20-2017 09:01-0400 Weight 66.04 kg [facility]ie [facility] Work Phone: Encounters Encounter Date Encounter Type Care Provider Facility Start: 02-11-2025 ambulatory Joann Live Facility: [facility] Start: 01-30-2025 End: 01-30-2025 Patient encounter procedure Negin Acevedo NP-C -[facility] Work Phone: Start: 01-30-2025 End: 01-30-[address] Joann Live MD Work Phone: -[facility] Start: 01-24-2025 ambulatory Joann Maria T Facility: [facility] Start: 01-24-2025 Non-patient / Non-visit Dr. Brodie lombardi DO -[facility] Start: 01-23-2025 End: 01-23-[address] Joann Live MD Work Phone: -Pulmonary Services/Neurology Start: 01-23-2025 End: 01-23-2025 Patient encounter procedure Negin Acevedo NP-C -Pulmonary Services/Neurology Work Phone: Start: 01-23-2025 End: 01-23-2025 ambulatory Joann Live Facility:[facility] Start: 01-21-2025 End: 01-21-[address] Joann Live MD Work Phone: -Cat Scan [facility] Start: 01-21-2025 End: 01-21-2025 Patient encounter procedure Negin Acevedo NP-C -[facility] Work Phone: Start: 01-21-2025 End: 01-21-2025 ambulatory Joann Live Facility:[facility] Start: 01-08-2025 End: 01-08-[address] Joann Live MD Work Phone: -[facility] Start: 01-08-2025 End: 01-08-2025 Patient encounter procedure Negin MCCRACKENC -[facility] Start: 01-08-2025 End: 01-08-2025 Patient encounter procedure Negin Acevedo NP-C -[facility] Work Phone: Start: 01-08-2025 End: 01-08-[address] Joann Live MD Work Phone: [facility] Work Phone: Start: 01-07-2025 End: 01-07-2025 Patient encounter procedure Chayo Black NP-C -[facility] Work Phone: Start: 01-07-2025 End: 01-08-[address] Joann Live MD Work Phone: [facility] Work Phone: Start: 01-07-2025 End: 01-07-2025 ambulatory Joann Live Facility:[facility] Start: 12-17-2024 End: 01-17-2025 ambulatory Edward Martinez MD Work Phone: Internal Medicine [place] Start: 10-22-2024 ambulatory Justus Robertson Facility :[facility] Start: 10-22-2024 Non-patient / Non-visit Dr. Justus Robertson MD -[facility] Start: 10-22-2024 End: 10-22-2024 Admission to same day surgery center Dr. Justus Robertson MD -Endoscopy Work Phone: Start: 10-22-2024 End: 10-22-[address] Joann Live MD Work Phone: [facility] Work Phone: Start: 09-10-2024 End: 09-10-[address] Joann Live MD Work Phone: [facility] Work Phone: Start: 09-10-2024 End: 09-10-[address] Joann Live MD -Outpatient Breast Imaging Work Phone: Start: 09-10-2024 End: 09-10-2024 ambulatory Joann Live Facility:[facility] Start: 08-15-2024 Non-patient / Non-visit Dr. Jose Live MD Work Phone: -[facility] Work Phone: Start: 08-15-2024 ambulatory Joann Live [place] [facility] Start: 01-17-2024 ambulatory Edward sánchez MD Work Phone: Internal Medicine [place] [id number] Start: 09-20-2023 Non-patient / Non-visit Dr. Jose Live Work Phone: [facility] Start: 09-20-2023 End: 09-20-[address] Joann Live Work Phone: [facility] Work Phone: Start: 09-20-2023 End: 09-20-[address] Joann Live Work Phone: [facility]-Pulmonary Services/Neurology Work Phone: Start: 08-28-2023 End: 08-28-2023 ambulatory [facility] Work Phone: Start: 08-28-2023 End: 08-28-2023 Patient encounter procedure [facility]-Outpatient Pavilion Ultrasound Work Phone: Start: 08-08-2023 End: 08-08-2023 ambulatory [facility] Work Phone: Start: 08-08-2023 End: 08-08-2023 Patient encounter procedure [facility]-Laboratory, Christelle Montenegro [facility] Start: 07-08-2023 End: 07-08-2023 Emergency department patient visit [facility]-Emergency Department Work Phone: Start: 12-06-2022 End: 12-06-2022 Subsequent hospital visit by physician [facility] 1 Work Phone: Radiology Comment on above: Abnormal screening m ammogram [R92.8] Start: 11-15-2022 End: 11-15-2022 Patient encounter procedure Kandice Mario APRN.ENDOCRINOLOGY NURSE Work Phone: [facility] Medicine [place] Comment on above: Skin lesion of left leg (Primary Dx); Acute back pain with sciatica, right; Elevated liver enzymes; Special screening for malignant neoplasms, colon; Encounter for immunization Start: 11-08-2022 End: 11-08-2022 ambulatory Ton Golias PT Work Phone: [facility] Comment on above: Acute back pain with sciatica, right (Primary Dx) Start: 10-31-2022 Telephone encounter Edward gutierrez MD Work Phone: Internal Medicine [place] Comment on above: mammogram orders/US Start: 10-27-2022 Telephone encounter Edward gutierrez MD Work Phone: [facility] Medicine [place] Comment on above: Medication Request Start: 10-26-2022 Documentation procedure Mammog ana Coordinator [facility] Start: 10-26-2022 Letter encounter Mammography Coordinator [facility] Department Start: 10-25-2022 End: 10-25-2022 Subsequent hospital visit by physician Screen Mammo [facility] Comment on above: Screening mammogram for breast cancer [Z12.31] Start: 10-19-2022 End: 10-19-2022 Subsequent hospital visit by physician Xr [facility] [place] Work Phone: Radiology Comment on above: Acute bilateral low back pain with right-sided sciatica [M54.41] Start: 10-18-2022 End: 10-18-2022 Patient encounter procedure Kan MACIEL Work Phone: [facility] Comment on above: Acute midline low ba ck pain with right-sided sciatica (Primary Dx) Procedures Date Procedure Procedure Detail Performing Clinician Start: 01-21-2025 Plain chest X-ray Dr. Endy Live MD Work Phone: Start: 01-21-2025 Plain chest X-ray Dr. Endy Live MD Work Phone: Start: 01-21-2025 Biopsy/Inj or Needle Placement Dr. Joann Live MD Work Phone: Start: 01-07-[address] Joann [...] t berenice with image limited Kandice Older NETWORK CABLE INSTALLER.ENDOCRINOLOGY NURSE Work Phone: Start: 12-06-2022 Digital breast tomos ynthesis bilateral Kandice Older NETWORK CABLE INSTALLER.ENDOCRINOLOGY NURSE Work Phone: Start: 10-25-2022 Lipid 1996 panel - S maxine or Plasma Us 1 Work Phone: Start: 10-25-2022 End: 10-25-2022 Mammography Edward Velez Work Phone: Start: 10-19-2022 Radex spine lumbosac ral 2/3 views Edward Martinez MD Work Phone: Start: 07-31-2019 Mammography Kan egan PA Work Phone: Plan of Treatment Date Care Activity Detail Author Start: 11-15-2032 Urine microalbumin profile [facility] Start: 10-26-2027 Lipid 1996 panel - S maxine or Plasma Lipid Screening [facility] Start: 10-26-2027 Lipid panel Lipid Screening [facility] Start: 10-26-2027 LIPID SCREEN LIPID SCREEN [facility] Start: 10-25-2025 DIABETES SCREEN [facility] Start: 10-25-2025 Diabetes Screening Diabetes Screenin g [facility] Start: 03-17-2025 Influenza vaccination Influenz a Vaccine (Season Ended) [facility] Start: 01-24-2025 Continuous pulse oximetry [facility] Start: 01-23-2025 Walking distance 6 minutes [facility] Start: 01-21-2025 Following clinical pathway protocol [facility] Start: 01-21-2025 Catheterization of vein [facility] Start: 01-21-2025 Oxygen therapy [facility] Start: 01-21-2025 Patient discharge [facility] Start: 01-21-2025 Vital signs measurements [facility] Start: 01-21-2025 Measurement of respiratory function [facility] Start: 2024 Shingrix Vaccine (1 of 2) Campbell grix Vaccine (1 of 2) [facility] Start: 10-22-2024 Colonoscopy flx dx w/collj spec when pfrmd DIAGNOSTIC COLONOSCOPY [facility] Start: 10-22-2024 Patient discharge [facility] Start: 03-17-2024 Covid-19 Vaccine ( season) Covid-19 Vaccine () [facility] Start: 03-17-2024 Influenza vaccination Influenza Vacc ine (#1) [facility] Start: 12-07-2023 Mammography Mammogram Screening [facility] Start: 12-07-2023 Screening for malign ant neoplasm of breast Mammogram Screening [facility] Start: 10-26-2023 Mammography MAMMOGRAM [facility] Start: 10-20-2023 COVID-19 VACCINE (3 - Booster for Pfizer series) COVID-19 VACCINE (3 - Booster for Pfizer series) [facility] Comment on above: Postponed from 01/16 (Declined at this time) Start: 07-17-2023 Behavioral Health Screening Behavioral Health Screening [facility] Start: 07-08-2023 [facility] Start: 07-08-2023 Radiography of thora cic spine Thoracic Spine 3 Views [facility] Start: 07-08-2023 X-ray of cervical spine Cerv Spine 2 or 3 Views [facility] Start: 07-08-2023 XR Cervical spine 2 or 3 Views [facility] Start: 07-08-2023 XR Thoracic spine 3 Views [facility] Start: 05-18-2023 End: 07-18-2023 Comprehensive metabolic 2000 panel - Serum or Plasma COMP METABOLIC PANEL Lab Routine Elevated liver enzymes Expected: 05/18/2023 (Approximate), Expires: 07/18/2023 [facility] Work Phone: Comment on above: Expected: 05/18/2023 (Approximate), Expires: 07/18/2023 Start: 03-17-2023 Covid-19 Vaccine () Covid-19 Vaccine () [facility] Start: 03-17-2023 Influenza vaccination C [facility] Start: 07-17-2022 DEPRESSION ASSESSMENT DEPRESSION ASS ESSMENT [facility] Start: 01-29-2021 LIPID SCREEN LIPID SCREEN [facility] Start: 01-16-2021 COVID-19 VACCINE (3 - Booster for Pfizer series) COVID-19 VACCINE (3 - Booster for Pfizer series) [facility] Start: 07-31-2020 Mammography MAMMOGRAM [facility] Start: 11-27-2019 COLOGUARD (FIT-DNA) COLOGUARD (FIT-D NA) [facility] Start: 11-27-2019 Colonoscopy COLONOSCOPY [facility] Start: 11-27-2019 COLORECTAL CANCER SCREENING COLORECTAL CANCER SCREENING [facility] Start: 11-27-[address] COLONOGRAPHY [facility] Start: 11-27-2019 DIABETES SCREEN DIABETES SCREEN [facility] Start: 11-27-2019 FECAL OCCULT BLOOD FECAL OCCULT BLOO D [facility] Start: 11-27-2019 Screening for malign ant neoplasm of colon [facility] Start: 11-27-2019 SIGMOIDOSCOPY SIGMOIDOSCOPY [facility] Start: 01-20-2017 End: 01-20-2017 Appointment Appointment [facility] Work Phone: Start: 12-30-2016 PNEUMOCOCCAL (2 - PCV) PNEUMOCOCCAL (2 - PCV) [facility] Start: 1993 Hepatitis B Vaccine (1 of 3 - 19+ 3-dose series) Hepatitis B Vaccine (1 of 3 - 19+ 3-dose series) [facility] Start: 1993 Urine microalbumin profile DTAP,TDAP,TD (1 - Tdap) [facility] Start: 1992 Anxiety Screening Anxiety Screening [facility] Start: 1992 Depression Screening Depression Scre ening [facility] Start: 1992 HEPATITIS C SCREENING HEPATITIS C SC REENING [facility] Start: 1992 HIV SCREENING HIV SCREENING [facility] Start: 1974 HEPATITIS B (1 of 3 - 3-dose series) HEPATITIS B (1 of 3 - 3-dose series) [facility] Start: 1974 Hepatitis B Vaccine (1 of 3 - 3-dose series) Hepatitis B Vaccine (1 of 3 - 3-dose series) [facility] Uypff-4-bmwrziywelr measurement [facility] Colonoscopy [facility] Continuous pulse oximetry [facility] CT Chest [facility] End: 02-15-2025 DBT Breast - bilateral screening HERMILA SCREENING W [facility] Radiology Routine Encounter for screening mammogram for breast cancer 1 Occurrences starting 01/17/2024 until 02/15/2025 [facility] Work Phone: Comment on above: 1 Occurrences starti ng 01/17/2024 until 02/15/2025 End: 01-16-2026 DBT Breast - bilateral screening HERMILA SCREENING W SANJUANA Radiology Routine Encounter for screening mammogram for breast cancer 1 Occurrences starting 12/17/2024 until 01/16/2026 [facility] Work Phone: Comment on above: 1 Occurrences starti ng 12/17/2024 until 01/16/2026 End: 11-30-2023 HERMILA DIAGNOSTIC BILATERAL HERMILA DIAGNOSTIC BILATERAL Radiology Routine Abnormal screening mammogram 1 Occurrences starting 10/31/2022 until 11/30/2023 [facility] Work Phone: Comment on above: 1 Occurrences starti ng 10/31/2022 until 11/30/2023 Partial thromboplast in time, activated [facility] Patient Education [facility] Work Phone: Patient referral [facility] Work Phone: Platelets [#/volume] in Blood [facility] Positron emission tomography with computed tomography [facility] Prothrombin time [facility] End: 11-16-2023 Screening colonoscopy COLONOSCOPY SCREENING Endoscopy Routine Special screening for malignant neoplasms, colon 1 Occurrences starting 11/15/2022 until 11/16/2023 [facility] Work Phone: Comment on above: 1 Occurrences starti ng 11/15/2022 until 11/16/2023 End: 11-30-2023 US BREAST LTD LEFT US BREAST LTD LEFT Radiology Routine Abnormal screening mammogram 1 Occurrences starting 10/31/2022 until 11/30/2023 [facility] Work Phone: Comment on above: 1 Occurrences starti ng 10/31/2022 until 11/30/2023 End: 11-30-2023 US BREAST LTD RIGHT US BREAST LTD RIGHT Radiology Routine Abnormal screening mammogram 1 Occurrences starting 10/31/2022 until 11/30/2023 [facility] Work Phone: Comment on above: 1 Occurrences starti ng 10/31/2022 until 11/30/2023 Walking distance 6 minutes [facility] Work Phone: [facility] Immunizations Immunization Date Immunization Notes Care Provider Jamil acevedo 11-15-2022 pneumococcal (PCV20) vaccine, 20 valent (PREVNAR 20) Kandice Older NETWORK CABLE INSTALLER.ENDOCRINOLOGY NURSE Work Phone: [facility] 11-15-2022 tetanus toxoid, redu juan diphtheria toxoid, and acellular pertussis vaccine, adsorbed Kandice Older NETWORK CABLE INSTALLER.ENDOCRINOLOGY NURSE Work Phone: [facility] 11-15-2022 pneumococcal Conjuga te, unspecified formulation Kandice Older NETWORK CABLE INSTALLER.ENDOCRINOLOGY NURSE Work Phone: [facility] Work Phone: 11-21-2020 COVID-19 original vaccine, age 12+ yr, monovalent (PFIZER-BIONTECH - PURPLE TOP) Kandice Older NETWORK CABLE INSTALLER.ENDOCRINOLOGY NURSE Work Phone: [facility] 10-31-2020 COVID-19 original vaccine, age 12+ yr, monovalent (PFIZER-BIONTECH - PURPLE TOP) Kandice Older NETWORK CABLE INSTALLER.ENDOCRINOLOGY NURSE Work Phone: [facility] 06-23-2016 influenza, injectabl e, quadrivalent, contains preservative Kan MACIEL Work Phone: [facility] 06-23-2016 influenza virus vacc ine, unspecified formulation 1 Work Phone: [facility] 12-31-2015 pneumococcal polysaccharide vaccine, 23 valent Kan MACIEL Work Phone: [facility] Payers Date Payer Category Payer Self-pay 2024 Unknown [id number] 2022 Private Health Insurance [facility] [id number] 2022 Unknown [id number] 2016 Unknown [facility] [id number] 2015 Unknown [employer] [id number] Self-pay [employer] INSUR[employer] [id number] Unknown [id number] Unknown [id number] Unknown [id number] Unknown [id number] Unknown [id number] .[id number] Unknown [id number] .[id number] Unknown [id number] .[id number] Unknown [id number] .462 Unknown [id number] .[id number] Unknown [id number] .462 Unknown [id number] .[id number] Unknown [id number] .462 Unknown [id number] .[id number] Unknown [id number] Unknown [id number] .462 Social History Date Type Detail Facility Start: 07-17-1987 End: 10-17-2024 Tobacco smoking status ORIS Smokes tobacco daily [facility] Start: 07-17-1987 History of tobacco use Cigarette Smo ker [facility] Start: 10-18-2022 End: 11-28-2022 Cigarettes smoked current (pack per day) - Reported 1 [facility] Start: 10-18-2022 Tobacco use and exposure Smoke less tobacco non-user [facility] Start: 10-18-2022 Alcohol intake Current drinke r of alcohol (finding) [facility] Start: 10-18-2022 History SDOH Alcohol Frequency 5 [facility] Start: 10-18-2022 History SDOH Alcohol Std Drinks 2 [facility] Start: 10-18-2022 History SDOH Alcohol Binge 1 [facility] Start: 10-18-2022 History SDOH Physica l Activity DPW 7 [facility] Start: 10-18-2022 History SDOH Stress 3 [facility] Start: 01-27-2016 Alcohol Comment before bed [facility] Start: 1975 Sex Assigned At Not on file [facility] Start: 10-19-2022 End: 11-15-2022 Alcohol intake Ex-drinker (finding) [facility] Start: 10-18-2022 End: 11-28-2022 Social connection and isolation panel [facility] Do you belong to any clubs or organizations such as moravian groups, unions, fraternal or athletic groups, or school groups? No [facility] Are you now , , , , never or living with a partner? [facility] How often to you hav e a drink containing alcohol? 4 or more times a week [facility] How many standard dr inks containing alcohol do you have on a typical day? 3 or 4 [facility] How often do you hav e 6 or more drinks on 1 occasion? Never [facility] How hard is it for y ou to pay for the very basics like food, housing, medical care, and heating Somewhat hard [facility] Adult Depression Screening Assessment 0 [facility] Work Phone: Do you feel stress - tense, restless, nervous, or anxious, or unable to sleep at night because your mind is troubled all the time - these days [OSQ] To some extent [facility] (I/We) worried mark er (my/our) food would run out before (I/we) got money to buy more. Sometimes true [facility] The food that (I/we) bought just didn't last, and (I/we) didn't have money to get more. Never true [facility] Start: 07-08-2023 End: 07-08-2023 Tobacco smoking status NHIS Unknown if ever smoked [facility] Start: 1975 Sex Assigned At Female [facility] Start: 09-24-2024 End: 10-22-2024 Sex Female (finding) [facility] Start: 10-22-2024 Vapor Vapor [facility] Start: 01-07-2025 End: 01-21-2025 Tobacco smoking status NHIS Ex-smoker (finding) [facility] NEGATED: Highlighted row Not [facility] Goals Date Patient Goal Desired Activity /State Mental Status Date Assessment Result Facility 01-21-2025 Cognitive function Awake;Alert;Appropriat e [facility] Work Phone: 10-22-2024 Cognitive function Voice/Name [facility] Work Phone: Clinical Notes 06-23-2016 to 01-24-2025 Note Date & Type Note Facility 01-24-2025 Procedure note [facility] 01-21-2025 Radiology Diagnostic study note [facility] Imaging Services [address] [place], [place] [id number] Chest Insp/Exp 2 View MR#: [id number] Acct: [id number] Name: [facility]IO [facility] Rep #: [id number] : 1975 F 49 From: Sarabjit Jennings MD PCP: Dr. Joann Live MD Status: REG CLI Study:Chest Insp/Exp 2 View Date of Exam: 01/21/25 Exam# [id number] Ordering Dr: Vish Noguera i, MD EXAM: Chest AP inspiration expiration views. CLINICAL HISTORY: 2 hour post right lung biopsy radiographs. COMPARISON: Prior study dated earlier in the day. TECHNIQUE: Inspiration expiration views were obtained at 2 hours following the right lung biopsy. FINDINGS: No evidence of right pneumothorax. Persistent mass in the apical medial aspect of the right lung. RAD/Chest Insp/Exp 2 View IMPRESSION: No evidence of pneumothorax on the 2 hour post right lung biopsy radiographs. The patient is asymptomatic. Reading Location: [place] [address] CC: Dr. Vish Jennings MD; Dr. Joann Live MD ~ Instructor Looping: Signed [facility] 01-21-2025 Radiology Diagnostic study note [facility] Imaging Services [address] [place], [place] [address] Biopsy/Inj or Needle Placement MR#: [id number] Acct: [id number] Name: [facility]ARIO [facility] Rep #: [id number] : 1975 F 49 From: Sarabjit Jennings MD PCP: Dr. Joann Live MD Status: REG CLI Study:Biopsy/Inj or Needle Placement Date of Exam: 01/21/25 Exam# [id number] Ordering Dr: Kiko Acevedo NP SOCIAL SERVICE MANAGER-C EXAM: CT-guided right lung biopsy. CLINICAL HISTORY: Nodular mass in the medial right lung apex. COMPARISON: Prior CT scan of the chest dated January 07, 2025. TECHNIQUE: Radiation dose report: CTDI L volume: 14.5 mGy. DLP: 208.33. The patient is here for CT-guided core biopsy of the right apical mass. The procedure as well as the benefits and possible complications including bleeding, infection and pneumothorax were explained to the patient. Informed consent was obtained. The patient was in the prone position. Conscious sedation was performed. The patient received 2 mg of Versed and 50 mcg of fentanyl intravenously. Conscious sedation was started at 8:51 a.m. and terminated at 9:16 a.m.. The patient was independently monitored by the department nurse. The overlying skin was prepped and draped in the usual sterile fashion. Following local anesthetic application, a 20 gauge core biopsy needle system was placed into the mass in the medial apical aspect of theright upper lobe. 6 core biopsies of the mass were obtained. The pathologist deemed the specimen adequate. FINDINGS: Successful CT-guided core biopsy of the medial right apical mass as described. Conscious sedation was performed. No immediate complication noted. CT/Biopsy/Inj or Needle Placement IMPRESSION: Successful CT-guided core biopsy of the right apical pulmonary mass. Reading Location: [place] [address] CC: VADIM Acevedo; Dr. Joann Live MD ~ Instructor Looping: Signed [facility] 01-21-2025 Radiology Diagnostic study note [facility] Imaging Services [address] [place], [place] [id number] Chest Insp/Exp 2 View MR#: [id number] Acct: [id number] Name: ROSARIO KAISER DANIEL Rep #: [id number] : 1975 F 49 From: Sarabjit Jennings MD PCP: Dr. Joann Live MD Status: REG CLI Study:Chest Insp/Exp 2 View Date of Exam: 01/21/25 Exam# [id number] Ordering Dr: Vish Noguera i, MD EXAM: Inspiration expiration views following a right lung biopsy. CLINICAL HISTORY: Status post immediate right lung biopsy. COMPARISON: None TECHNIQUE: AP inspiration expiration views were obtained. FINDINGS: EKG electrodes are seen. There is no evidence of pneumothorax on the immediate post right lung biopsy radiographs. Persistent mass in the medial aspect of the right lung apex. RAD/Chest Insp/Exp 2 View IMPRESSION: Status post right lung biopsy. No evidence of pneumothorax on the immediate post right lung biopsy radiographs. Reading Location: [place] [address] CC: Dr. Vish Jennings MD; Dr. Joann Live MD ~ Instructor Looping: Signed [facility] 01-08-2025 Progress note [facility] 01-08-2025 Progress note Note Date/Time January 08, 2025 1:45pm [facility] [place] [address] [place] [address] OFFICE VISIT Date of Service: 01/08/25 MR#: [id number] Acct: [id number] Name: ROSARIO KAISER Rep #: [id number] : 1975 Provider: VADIM Acevedo Age/Sex: 49/F Location: [facility] Status: Signed Assessment and Plan Assessment and [...] - DLCO, Spirometry b/a bronchodilators, lung volumes 07/08/ R91.8 - Other nonspecific abnormal finding of [...] Additional Comments: This note was generated with [employer] software. It may contain incorrectwords, spelling, and [...] for any breathing problems. She has a 00-cnrs-entz smoking history quitting completely January 2024. She [...] a local restaurant. 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 She denies any fever, [...] air Intake Visit Reasons: LDCT- CC Patient Pasting Machine Offbearer Required: No DME Vendor: N/a Accompanied by: [...] the past year?: No PFSH Medical History (Reviewed 01/08/25 @ 12:59 by Negin Acevedo SOCIAL SERVICE MANAGER, SOCIAL SERVICE MANAGER-C) History of tobacco use Encounter for screening for malignant neoplasm of lung Wears glasses Wears dentures Alcohol use Arthritis Injury of back Injury of head and neck Restless legs PONV (postoperative nausea and vomiting) Smoker Shortness of breath on exertion Leg cramps History of atrial fibrillation Lumbar disc herniation Surgical History (Reviewed 01/08/25 @ 12:59 by Negin Acevedo SOCIAL SERVICE MANAGER, SOCIAL SERVICE MANAGER-C) History of tubal ligation History of lumpectomy [...] fallen in the past year?: No 01/08/25 9105 <Electronically signed by Negin moreno NP SOCIAL SERVICE MANAGER-C> Date _ Negin Acevedo NP SOCIAL SERVICE MANAGER-C Cosigner Signature: Date (if applicable) CC: SOCIAL SERVICE MANAGER-Kiko Black; Dr. Joann Live MD ~ [facility] Work Phone: 1(185) 955-208206-24-2025 Radiology Diagnostic study note [facility] Imaging Services [address] [place] [address] Lung Screening MR#: [id number] Acct: [id number] Name: ROSARIO KAISER Rep #: [id number] : 1975 F 49 From: Ruby Martin MD PCP: Dr. Joann Live MD Status: REG CLI Study:Low Dose CT Lung Screening Date of Exam : 01/07/25 Exam# [id number] Ordering Dr: Chayo Marquez NP PROCEDURE: LOW DOSE CT LUNG SCREENING 01/07/2025 REASON FOR EXAM: LUNG CANCER SCREENING TECHNIQUE: LOW DOSE CT LUNG SCREENING Coronal and Sagittal reconstruction series were provided. One or more dose reduction techniques were used (e.g., Automated exposure control, adjustment of the mA and/or kV according to patient size, use of iterative reconstruction technique). REFERENCE LINK: [employer] Lung-RADS RADIATION DOSE SUMMARY: DLP: 59 mGycm [...] cm within the right anna. Reading Location: [id number] CC: VADIM Black; Dr. Joann Live MD ~ Instructor Looping: Signed [facility]06-03-2025 NotePatient Outreach (INTMWS) ROSARIO KAISER ([id number]) 1975 F Date Time Provider Department 12/17/24 EDWARD MARTINEZ INTMWS During your visit today, we recorded the following information about you: Allergies As of Date: 12/17/2024 (No Known Allergies) Date Reviewed: 11/28/2022 Reviewed by: Kelly Beauchamp LPN - Fully Assessed Visit Diagnosis:Encounter for screening mammogram for breast cancer [Z12.31] Order(s):[facility] SCREENING W SANJUANA [6866250] Order #: [id number] FUTURE Prescriptions as of 01/17/2025 - Ibuprofen [...] liver enzymes [R74.8] 11/15/2022 Encounter Status:Closed by EPIC, PRODUSER on 01/17/25[facility] 10-22-2024 Consult note [facility] Medical Records Department [address] [place] [address] Anesthesia Postop Eval I 10/22/24922 MR#: [id number] Acct: [id number] Name: ROSARIO KAISER Rep #:[id number] : 1975 48 From: Dean [place] PCP: Dr. Joann Live MD Status:REG [facility] Y Race: C Location: [place] [address] Anesthesia: Postop Eval I Current Vital Signs [...] document: Postop Eval 1 completed: Yes 10/22/24923 > Date _ Dean Shipley Signature: Date CC: ~ Signed [facility]04-08-2025 Procedure note [facility] Medical Records Department [address] [place] [address] Colonoscopy Report MR#: [id number] Acct: [id number] Name: ROSARIO KAISER DANIEL Rep #:[id number] : 1975 48 From: Justus Robertson MD PCP: Dr. Joann Live MD Status:REG [facility] Patient Name: Rosario Kaiser Procedure Date: 10/22/2024 8:46 AM Date of : 1975 Age: 48 Procedure: Colonoscopy Indications: Screening for colorectal malignant neoplasm Providers: Justus Robetrson MD Referring MD: Joann Live Medicines: Monitored [...] present medications. Procedure Code(s): --- Professional --- 32295, Colonoscopy, flexible; diagnostic, including collection of specimen(s) by brushing or washing, when performed (separate procedure) Diagnosis Code(s): --- Professional --- Z12.11, Encounter for screening for malignant neoplasm of colon K57.30, Diverticulosis of large intestine without perforation or abscess without bleeding K64.8, Other hemorrhoids CPT copyright 2021 [employer]. All rights reserved. The codes documented in this report are preliminary and upon orthotics prosthetics assistant review may be revised to meet current compliance requirements. Justus Robertson MD 10/22/2024 9:23:43 AM This report has been signed electronically. Number of Addenda: 0 Note Initiated On: 10/22/2024 8:46 AM 10/22/24923 Date _ Justus Robertson MD Cosigner Signature: Date (if indicated) CC: Dr. Joann Live MD; Dr. Justus Robertson MD ~ Date Dictated: 10/22/24845 Date Transcribed: Instructor Looping: SW Signed [facility]04-08-2025 Procedure note [facility] Medical Records Department [address] [place] [address] Operative Report - CC Letter MR#: [id number] Acct: [id number] Name: ROSARIO KAISER DANIEL Rep #:[id number] : 1975 48 From: Justus Robertson MD PCP: Dr. Joann Live MD Status:REG [facility] 10/22/2024 Joann Live [address] [address] Re : Colonoscopy procedure for Rosario Kaiser Dear Dr. Live This procedure was performed [...] electronically. 10/22/24923 Date _ Justus Robertson MD Cosigner Signature: Date (if indicated) CC: Dr. Joann Live MD; Dr. Justus Robertson MD ~ Date Dictated: 10/22/24845 Date Transcribed: Instructor Looping: ERWIN Paige [facility]04-08-2025 Evaluation note* Diagnosis Onset Date Resolution Status Admit Date Encounter for screening for malignant neoplasm of colon acute Apri l 2024 7:08am [facility] Work Phone: 1(289) 670-485004-08-2025 Evaluation note* Diagnosis Onset Date Resolution Status Admit Date Encounter for screening for malignant neoplasm of colon acute Apri l 2024 7:08am Encounter for screening for malignant neoplasm of lung acute January 07, 2025 12:06pm History of tobacco use acute Ju 2024 12:06pm [facility] Work Phone: 1(135) 272-153804-08-2025 Evaluation note* Diagnosis Onset Date Resolution Status [...] of breath acute January 08, 2025 12:35pm [employer] [facility] Work Phone: 1(578) 866-263704-08-2025 Evaluation note* Diagnosis Onset Date Resolution Status Admit Date Encounter for screening for malignant neoplasm of colon acute Apri l 2024 7:08am Encounter for screening for malignant neoplasm of lung acute January 07, 2025 12:06pm History of tobacco use acute Ju 2024 12:06pm Hypoxia acute January 08 12:35pm Mass of upper lobe of right lung acu te January 08, 2025 12:35pm Morning headache acute December 12:35pm Shortness of breath acute January 08, 2025 12:35pm Shortness of breath acute January 30, 2025 9:11am 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 Joann Live MD Status:[facility] Location: [place] [address] HPI - General General Date of Admission: 10/22/24 Date of Service: 10/22/24 Chief Complaint: Colonoscopy HPI Narrative ROSARIO KAISER, is a 48 F who presents today for screening colonoscopy. She has had no previous colonoscopy. No GI issues or symptoms. No family history of colon polyps or colon cancers [facility] Medical History Wears glasses Wears dentures Alcohol [...] begin momentarily. Charges/Coding Visit Charges Inpatient E&M: 24538 Init Hosp L1 10/22/24 0843 Cosigner Signature (if applicable): CC: Dr. Joann Live MD; Dr. Justus Robertson MD~ Signed [facility]04-08-2025 [facility] Medical Records Department [address] [place] [address] History Physical Exam 10/22/24 0841 MR#: [id number] Acct: [id number] Name: ROSARIO KAISER Rep #: [id number] : 1975 48 From: Justus Robertson MD PCP: Dr. Joann Live MD Status:[facility] Location: [place] [address] HPI - General General Date of Admission: 10/22/24 Date of Service: 10/22/24 Chief Complaint: Colonoscopy HPI Narrative ROSARIO KAISER, is a 48 F who presents today for screening colonoscopy. She has had no previous colonoscopy. No GI issues or symptoms. No family history of colon polyps or colon cancers [facility] Medical History Wears glasses Wears dentures Alcohol [...] momentarily. Charges/Coding Visit Charges Inpatient E M: 05598 Init Hosp L1 10/22/24 0843 Cosigner Signature (if applicable): CC: Dr. Joann Live MD; Dr. Justus Robertson MD [facility]04-08-2025 Consult note [facility] Medical Records Department [address] [place] [address] Pre-Anesthesia Evaluation 10/22/24 0800 MR#: [id number] Acct: [id number] Name: ROSARIO KAISER Rep #:[id number] : 1975 48 From: Wolfgang Roberts MD PCP: Dr. Joann Live MD Status:REG SDC Y Race: C Location: [facility]- ASA Classification* ASA Classification ASA Classification: 2 [...] Procedure(s): COLONOSCOPY Anesthesia History Anesthesia History - reel repairer: Anesthesia History - reel repairer Hx Hospitalization No 10/17/24 15:20 Any Problems [...] sips of water?: No PONV PONV - reel repairer: PONV - reel repairer Female Yes 10/17/24 15:20 HX of Motion [...] 10/22/24 07:31 Respiratory Assessment Respiratory Assessment - reel repairer: Respiratory Tract Infection Hx - reel repairer Hx Respiratory Tract Infection No 10/17/24 15:20 STOP Sleep Apnea STOP Sleep Apnea - reel repairer: STOP Sleep Apnea - reel repairer Hx Hypertension No 10/17/24 15:20 Hx Sleep [...] Tobacco Use History Tobacco Use History - reel repairer: Tobacco Use History - reel repairer Tobacco Use Smoking Status Current every day smoker 10/17/24 15:20 Hx Tobacco Use Yes: vapes 10/17/24 15:20 Years Smoking Packs Smoked per Day Smoking Cessation Date was within the last 15 years Hx Smoking Cessation Date Hx Smoking Cessation No 10/17/24 15:20 Counseling Any additional information?: Yes Tobacco Use: Vapor (Patient did vape today.) Hematologic Medial History Hematologic Hx - reel repairer: Hematologic Medical Hx - manager behavior Hx of Blood Transfusion No 10/17/24 15:20 Hx of Transfusion in last 3 No 10/17/24 15:20 Months Date of Last Transfusion (if within last 3 months) Ever experience any problems No 10/17/24 15:20 with transfusion(s)? Specify any problems Hx of Preganancy in last 3 No 10/17/24 15:20 Months Nurse Filling Out Transfusion MGRIFFLELE 10/17/24 15:20 & Questions: Date: 10/17/24 10/17/24 15:20 Time: 15:23 10/17/24 15:20 Patient unable to answer at this time (ie. confused, unrespo /Reproduction History /Reproductive History - reel repairer: /Reproductive Hx- reel repairer Hx Now No 10/17/24 15:20 Gestational Age [...] no additional complaints, except as documented. 10/22/24 0810 lambert FRANCOIS> Date _ Wolfgang Roberts MD Cosignyaritza Signature: Date CC: ~ Signed [facility]03-06-2024 Procedure [facility] 12-06-2022 History of Present illness Narrative* KuzKelly diaz RDMS - 12/06/2022 8:30 AM EDT Radiology Service Progress Note PATIENT NAME: Rosario Kaiser DATE OF SERVICE: December 06, 2022 TIME: [...] 06, 2022 9:20 AM documented [facility] History of Present illness Narrative* Marisabel Drake Mammo Tech - 12/06/2022 8:00 AM EDT Radiology Service Progress Note PATIENT NAME: Rosario Kaiser DATE OF SERVICE: December 06, 2022 TIME: [...] 06, 2022 7:51 AM documented in this encounterMartin [facility]05-02-2023 Instructions* Patient Instructions* Kandice Mario APRN.CNP - 11/15/2022 9:33 AM EDT Health Information [...] until the day before your colonoscopy. Designated Broke Man on the Day of Your Exam A responsible family member or friend MUST come with you to your colonoscopy and REMAIN in the endoscopy area until you are discharged! You are NOT ALLOWED to drive, take a taxi or bus, or leave the Endoscopy Center ALONE. If you do not have a responsible minibus driver (family member or friend) with you [...] carbonated beverages such as elana sang or lemon-wales soda; Gatorade or other sports drinks (not [...] calling after 5:00 PM, please call Nurse semiconductor testing group leader at [phone]. [facility] [address] [place] [address] Index # 87691 Revised 08/2016 3 Colonoscopy Procedure Overview Please [...] If the nausea persists, please contact nurse real estate utilization officer at [phone]. You may experience skin irritation around the anus due to the passage of liquid stools. To prevent and treat skin irritation, you should: ?Apply Vaseline or Desitin ointment to the skin around the anus before drinking the bowel preparation medications. These products can be purchased at any drugstore. ?Wipe the skin after each bowel movement [...] performed your exam. 6 Revised 08/2016 Copyright 2799-1877 [facility]. All rights reserved. Revised 08/2016 documented in this encounterMartin [facility]05-02-2023 History of Present illness Narrative* Kandice Older, NETWORK CABLE INSTALLER.ENDOCRINOLOGY NURSE - 11/15/2022 9:26 AM EDT Images from the original note were not included. CC: Patient presents with: 4 week follow up - back pain, lab results HPI Rosario Kaiser is a 46 year old female who [...] Right 10/2016 breast abscess S BALLOON,UTERINE ABLATION [id number] TUBAL LIGATION HX 1995 ALLERGIES Patient has [...] Patient agreeable to treatment plan. Kandice Mario, NETWORK CABLE INSTALLER.ENDOCRINOLOGY NURSE WSTR OPEN ACCESS QUESTIONNAIRE 1. Are you currently [...] Please send all open access questionnaires to [facility] Pool #[id number] documented in this encounterMartin [facility]04-25-2023 History of Present illness Narrative* Ton Conde, PT - 11/08/2022 3:37 PM EDT Episode [...] THERAPY PHYSICAL THERAPY TREATMENT NOTE ASSESSMENT: Rosario Kaiser tolerated the session with fatigue, expected muscle [...] 45 Ton Conde PT documented in this encounterMartin [facility]04-24-2023 Miscellaneous Notes* Telephone Encounter - Roya Cordon [...] transportation. Roya Cordon LPN documented in this encounterMartin [facility]04-13-2023 Miscellaneous Notes* Telephone Encounter - Marine Gunter [...] prescribe medication to help her sleep. Uses DDMitchel [place]. Last OV: 10/19/22-with Dr. Cason for Est Care and low back pain. Please call patient with update. [phone] Thank you. documented in this encounterMartin [facility] Hospital04-12-2023 Miscellaneous Notes* Letter - Mammography Coordinator - 10/26/2022 8:04 AM EDT October 26, 2022 PID: [id number] Rosario Kaiser [address] [address] Dear Ms. Kaiser, Your recent breast imaging exam on 10/25/2022 showed a possible finding that requires additional imaging studies for a complete evaluation. Most such findings are probably benign (not cancer). If you have a healthcare provider who ordered/prescribed your screening mammogram: Please call [phone] or [phone]: [phone] to schedule an appointment for your additional [...] and reports are kept on file at [facility] as part of your permanent medical record, and are available for your continuing care. Thank you for allowing us to help in meeting your health care needs. Sincerely, Dr. Sandoval Interpreting Radiologist [facility] (Additional imaging) documented in this encounterMartin [facility] Hospital04-11-2023 History of Present illness Narrative* Karine Silvestre, RT(R) - 10/25/2022 3:00 PM EDT Radiology Service Progress Note PATIENT NAME: Rosario Kaiser DATE OF SERVICE: October 25, 2022 TIME: [...] 25, 2022 2:47 PM documented in this [facility]04-05-2023 History of Present illness Narrative* Nu Brown RT(R) - 10/19/2022 5:40 PM EDT Radiology Service Progress Note PATIENT NAME: Rosario Kaiser DATE OF SERVICE: October 19, 2022 TIME: [...] 19, 2022 5:38 PM documented in this [facility]04-05-2023 Miscellaneous Notes* Result Encounter Note - Edward Martinez MD - 10/19/2022 5:40 PM EDT Result viewed. No acute disease. documented in this [facility]04-05-2023 Progress note* Result Encounter Note - Edward Martinez MD - 10/19/2022 5:40 PM EDT Result viewed. No acute disease. [facility] History of Present illness Narrative* RAHEEM Johnson - 10/18/2022 7:30 AM EDT This note was created using [employer]. Subjective Rosario Kaiser is a 46 year old female. HPI [...] Right 10/2016 breast abscess S BALLOON,UTERINE ABLATION [address] 2007 TUBAL LIGATION HX 1995 ALLERGIES Patient [...] ER evaluation. RAHEEM Johnson documented in this encounterMartin [facility] Hospital12-08-2016 History of Past illness Narrative* Problem Noted Date Resolved Date Chronic diarrhea 06/23/2016 10/19/2022 documented as of this encounter (statuses as of 10/28/2022) [place] [address]-08-2016 History of Past illness Narrative* Problem Noted Date Resolved Date Chronic diarrhea 06/23/2016 10/19/2022 documented as of this encounter (statuses as of 10/28/2022) [address]08-2016 History of Past illness Narrative* Problem Noted Date Resolved Date Chronic diarrhea 06/23/2016 10/19/2022 documented as of this encounter (statuses as of 11/07/2022) [facility] of Past illness Narrative* Problem Noted Date Resolved Date Chronic diarrhea 06/23/2016 10/19/2022 documented as of this encounter (statuses as of 11/09/2022) [place] [address]08-2016 History of Past illness Narrative* Problem Noted Date Resolved Date Chronic diarrhea 06/23/2016 10/19/2022 documented as of this encounter (statuses as of 11/15/2022) [address]-2016 History of Past illness Narrative* Problem Noted Date Diagnosed Date Resolved Date Chronic diarrhea 06/23/2016 10/19/2022 documented as of this encounter (statuses as of 05/21/2023) [address]-2016 History of Past illness Narrative* Problem Noted Date Diagnosed Date Resolved Date Chronic diarrhea 06/23/2016 10/19/2022 documented as of this encounter (statuses as of 05/21/2023) [place] [address]-08-2016 History of Past illness Narrative* Problem Noted Date Diagnosed Date Resolved Date Chronic diarrhea 06/23/2016 10/19/2022 documented as of this encounter (statuses as of 05/21/2023) [facility] Hospital[facility]ult note Author Wolfgang Roberts [facility] Note Date/Time October 22, 2024 8:10 am [facility] Medical Records Department [address] [place] [address] Pre-Anesthesia Evaluation 10/22/24 0800 MR#: [id number] Acct: [id number] Name: ROSARIO KAISER Rep #:[id number] : 1975 48 From: Wolfgang Roberts MD PCP: Dr. Joann Live MD Status:REG SD Y Race: C Location: [place] [address] ASA Classification* ASA Classification ASA Classification: 2 [...] Procedure(s): COLONOSCOPY Anesthesia History Anesthesia History - reel repairer: Anesthesia History - reel repairer Hx Hospitalization No 10/17/24 15:20 Any Problems [...] sips of water?: No PONV PONV - reel repairer: PONV - reel repairer Female Yes 10/17/24 15:20 HX of Motion [...] 10/22/24 07:31 Respiratory Assessment Respiratory Assessment - reel repairer: Respiratory Tract Infection Hx - reel repairer Hx Respiratory Tract Infection No 10/17/24 15:20 STOP Sleep Apnea STOP Sleep Apnea - reel repairer: STOP Sleep Apnea - reel repairer Hx Hypertension No 10/17/24 15:20 Hx Sleep [...] Tobacco Use History Tobacco Use History - reel repairer: Tobacco Use History - reel repairer Tobacco Use Smoking Status Current every day smoker 10/17/24 15:20 Hx Tobacco Use Yes: vapes 10/17/24 15:20 Years Smoking Packs Smoked per Day Smoking Cessation Date was within the last 15 years Hx Smoking Cessation Date Hx Smoking Cessation No 10/17/24 15:20 Counseling Any additional information?: Yes Tobacco Use: Vapor (Patient did vape today.) Hematologic Medial History Hematologic Hx - reel repairer: Hematologic Medical Hx - manager behavior Hx of Blood Transfusion No 10/17/24 15:20 [...] confused, unrespo /Reproduction History /Reproductive History - reel repairer: /Reproductive Hx- reel repairer Hx Now No 10/17/24 15:20 Gestational Age (in weeks): EDC: Hx Hx Para Hx Section SAB No 10/17/24 15:20 [facility] Medical History Wears glasses Wears dentures Alcohol [...] by Wolfgang verdin MD> Date _ Wolfgang Shipley Signature: Date CC: ~ Signed [facility] Work Phone: Consult note Author Dean [place] [facility] Note Date/Time October 22, 2024 9:24 am [facility] Medical Records Department [address] [place] [id number] Anesthesia Postop Eval I 10/22/24922 MR#: [id number] Acct: [id number] Name: ROSARIO KAISER Rep #:[id number] : 1975 48 From: Dean Marshall PCP: Dr. 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 documented in this encounter [facility] [place] [facility]* Diagnosis Abnormal screening mammogram- Primary Abnormal mammogram, unspecified documented in this encounter [facility] note* Diagnosis Acute back pain with sciatica, right- Primary documented in this encounter [facility] [place] [facility]* Diagnosis Skin lesion of left leg- Primary Unspecified disorder of skin and subcutaneous tissue Acute back pain with sciatica, right Elevated liver enzymes Other nonspecific abnormal serum enzyme levels Special screening for malignant neoplasms, colon Encounter for immunization Need for other specified prophylactic vaccination against single bacterial disease documented in this encounter [facility] note* Diagnosis Abnormal screening mammogram Abnormal mammogram, unspecified documented in this encounter [facility] note* Diagnosis Screening mammogram for breast cancer documented in this encounter [facility] note* Diagnosis Abnormal screening mammogram Abnormal mammogram, unspecified documented in this encounter [facility] noteNo assessment information [facility]WKn[facility] Work Phone: Evaluation note* Diagnosis Encounter for screening mammogram for breast cancer documented in this encounter [facility] note* Diagnosis Acute bilateral low back pain with right-sided sciatica documented in this encounter [facility] note* Diagnosis Encounter for screening mammogram for breast cancer [facility] Author Justus Robertson [facility] Note Date/Time October 22, 2024 8:43 am [facility] Medical Records Department [address] [place] [id number] History & Physical Exam 10/22/24 0841 MR#: [id number] Acct: [id number] Name: EDMUNDOROSARIO Rep #:[id number] : 1975 48 From: Justus Robertson MD PCP: Dr. Joann Live MD Status:[facility] Location: [place] [address] HPI - General General Date of Admission: 10/22/24 Date of Service: 10/22/24 Chief Complaint: Colonoscopy HPI Narrative ROSARIO KAISER, is a 48 F who presents today for screening colonoscopy. She has had no previous colonoscopy. No GI issues or symptoms. No family history of colon polyps or colon cancers [facility] Medical History Wears glasses Wears dentures Alcohol [...] begin momentarily. Charges/Coding Visit Charges Inpatient E&M: 69755 Init Hosp L1 10/22/24 0843 <Electronically signed by Justus Robertson MD> Cosigner Signature (if applicable): CC: Dr. Joann Live MD; Dr. Justus Robertson MD~ Signed [facility] Work Phone: Hospital Discharge instructionsAmbulatory Orders* Fast Pass: Oncology Referral [facility] Location: None [facility] Work Phone: Reason for referral (narrative)* Diagnostic Procedure Only (Routine) - Pending Review Specialty Diagnoses / Procedures Referred By Madeline hamlin Referred To Contact [facility] Diagnoses Abnormal screening mammogram Procedures US BREAST LTD LEFT US BREAST UNI REAL TIME WITH IMAGE LIMITED Kandice Mario APRN.CNP [address] [place] [address] [facility] [place] [address] Referral ID Status Reason Start Date Expiration Date Visits Requested Visits Authorized [id number] Pending Review Auto-Generat ed Referral 10/31/2022 11/30/2023 1 1 * Diagnostic Procedure Only (Routine) - Pending Review Specialty Diagnoses / Procedures Referred By Madeline hamlin Referred To Contact [facility] Diagnoses Abnormal screening mammogram Procedures US BREAST LTD RIGHT US BREAST UNI REAL TIME WITH IMAGE LIMITED Kandice Mario APRN.CNP [address] [place] [address] [facility] [address] [place] [address] Referral ID Status Reason Start Date Expiration Date Visits Requested Visits Authorized [id number] Pending Review Auto-Generat ed Referral 10/31/2022 11/30/2023 1 1 * Diagnostic Procedure Only (Routine) - Pending Review Specialty Diagnoses / Procedures Referred By Contac t Referred To Contact [facility] Diagnoses Abnormal screening mammogram Procedures HERMILA DIAGNOSTIC BILATERAL DIAGNOSTIC MAMMOGRAPHY COMPUTER-AIDED DETCJ BI Kandice Mario APRN.ENDOCRINOLOGY NURSE [address] [place] [address] [facility] [address] [place] [address] Referral ID Status Reason Start Date Expiration Date Visits Requested Visits Authorized [id number] Pending Review Auto-Generat ed Referral 10/31/2022 11/30/2023 1 1 [facility] for referral (narrative)* Outpatient Procedure (Routine) - Pending Review Specialty Diagnoses / Procedures Referred By Contac t Referred To Contact [facility] Diagnoses Special screening for malignant neoplasms, colon Procedures COLONOSCOPY SCREENING COLONOSCOPY FLX DX W/COLLJ SPEC WHEN PFRMD Kandice Mario APRN.ENDOCRINOLOGY NURSE [address] [place] [address] [facility] [address] [place] [address] Referral ID Status Reason Start Date Expiration Date Visits Requested Visits Authorized [id number] Pending Review Auto-Generat ed Referral 11/15/2022 11/16/2023 1 1 * Consult, Test, Treat (Routine) - Pending Review Specialty Diagnoses / Procedures Referred By Contac t Referred To Contact Dermatology Diagnoses Skin lesion of left leg Procedures CONSULT TO DERMATOLOGY OFFICE/OUTPATIENT NEW HIGH MDM 60-74 MINUTES Kandice Mario APRN.ENDOCRINOLOGY NURSE [address] [place] [address] Referral ID Status Reason Start Date Expiration Date Visits Requested Visits Authorized [id number] Pending Review PCP Requested Referral 11/15/2022 11/15/2023 1 1 [facility] for referral (narrative)* Diagnostic Procedure Only (Routine) - Pending Review Specialty Diagnoses / Procedures Referred By Contac t Referred To Contact [facility] Diagnoses Abnormal screening mammogram Procedures US BREAST LTD LEFT US BREAST UNI REAL TIME WITH IMAGE LIMITED Kandice Mario APRN.CNP [address] [place] [address] [facility] [address] [place] [address] Referral ID Status Reason Start Date Expiration Date Visits Requested Visits Authorized [id number] Pending Review Auto-Generat ed Referral 10/31/2022 11/30/2023 1 1 * Diagnostic Procedure Only (Routine) - Pending Review Specialty Diagnoses / Procedures Referred By Juanac t Referred To Contact [facility] Diagnoses Abnormal screening mammogram Procedures US BREAST LTD RIGHT US BREAST UNI REAL TIME WITH IMAGE LIMITED Kandice Mario APRN.CNP [address] [place] [address] [facility] [address] [place] [address] Referral ID Status Reason Start Date Expiration Date Visits Requested Visits Authorized [id number] Pending Review Auto-Generat ed Referral 10/31/2022 11/30/2023 1 1 [facility] for referral (narrative)* Diagnostic Procedure Only (Routine) - Pending Review Specialty Diagnoses / Procedures Referred By Contac t Referred To Contact [facility] Diagnoses Screening mammogram for breast cancer Procedures HERMILA SCREENING SCREENING MAMMOGRAPHY BI 2-VIEW BREAST INC CAD Edward Martinez MD [address] [place] [address] [facility] [address] [place] [address] Referral ID Status Reason Start Date Expiration Date Visits Requested Visits Authorized [id number] Pending Review Auto-Generat ed Referral 10/19/2022 11/18/2023 1 1 [facility] for referral (narrative)* Diagnostic Procedure Only (Routine) - Pending Review Specialty Diagnoses / Procedures Referred By Madeline hamlin Referred To Contact [facility] Diagnoses Encounter for screening mammogram for breast cancer Procedures HERMILA SCREENING W [place] SCREENING DIGITAL BREAST TOMOSYNTHESIS BI SCREENING MAMMOGRAPHY BI 2-VIEW BREAST INC Edward Chaves MD [address] [place] [address] [facility] Imaging [address] [place] [address] Referral ID Status Reason Start Date Expiration Date Visits Requested Visits Authorized [id number] Pending Review Auto-Generat ed Referral 01/17/2024 02/15/2025 1 1 [facility] for referral (narrative)* Diagnostic Procedure Only (Routine) - Closed Specialty Diagnoses / Procedures Referred By Madeline hamlin Referred To Contact X[facility] IMAGING Diagnoses Acute bilateral low back pain with right-sided sciatica Procedures XR LUMBAR GENERAL 3V AP/LAT/L5-S1 RADEX SPINE LUMBOSACRAL 2/3 VIEWS Edward Martinez MD [address] [place] [address] [place] [address] Referral ID Status Reason Start Date Expiration Date V isits Requested Visits Authorized [id number] Closed Auto-Generate d Referral 10/19/2022 11/18/2023 1 1 [facility] for referral (narrative)No reason for referral information availableWKnox [facility] Work Phone: Reason for visit Narrative* Diagnostic Procedure Only (Routine) - Pending Review Specialty Diagnoses / Procedures Referred By Madeline hamlin Referred To Contact [facility] Diagnoses Screening mammogram for breast cancer Procedures HERMILA SCREENING SCREENING MAMMOGRAPHY BI 2-VIEW BREAST INC Edward Chaves MD [address] [place] [address] [facility] [address] [place] [address] Referral ID Status Reason Start Date Expiration Date Visits Requested Visits Authorized [id number] Pending Review Auto-Generat ed Referral 10/19/2022 11/18/2023 1 1 [facility] for visit Narrative* Diagnostic Procedure Only (Routine) - Closed Specialty Diagnoses / Procedures Referred By Contac t Referred To Contact [facility] Diagnoses Abnormal screening mammogram Procedures HERMILA DIAGNOSTIC BILATERAL DIAGNOSTIC MAMMOGRAPHY COMPUTER-AIDED DETCJ BI Fabiano, Kandice, NETWORK CABLE INSTALLER.ENDOCRINOLOGY NURSE [address] [place] [address] [facility] [address] [place] [address] Referral ID Status Reason Start Date Expiration Date V isits Requested Visits Authorized [id number] Closed Auto-Generate d Referral 10/31/2022 11/30/2023 1 1 [facility] for visit Narrative* Diagnostic Procedure Only (Routine) - Closed Specialty Diagnoses / Procedures Referred By Contac t Referred To Contact XR IMAGING Diagnoses Acute bilateral low back pain with right-sided sciatica Procedures XR LUMBAR GENERAL 3V AP/LAT/L5-S1 RADEX SPINE LUMBOSACRAL 2/3 VIEWS Edward Martinez MD [address] [place] [address] [place] [address] Referral ID Status Reason Start Date Expiration Date V isits Requested Visits Authorized [id number] Closed Auto-Generate d Referral 10/19/2022 11/18/2023 1 1 [facility] Summary Purpose Family History No Family History Records FoundNo Family History Records FoundNo Family History Records Found Advance Directives No Advanced Directives Records Found Advance Directive Response Recorded Date/ Time Advance Directives No June 7:48pm Living Will No July 08 023 7:50am Power of It Systems Analyst No July 08, 2023 7:50am Advance Directive Response Recorded Date/ Time Advance Directives No June 8:48pm Living Will No July 08, 2 023 8:50am Power of It Systems Analyst No July 08, 2023 8:50am Advance Directive Response Recorded Date/ Time Advance Directives No June 8:48pm Advance Directive Response Recorded Date/ Time Living Will No October 17, 2024 3:20pm Do you have a Healthcare Power of It Systems Analyst? No October 17, 2024 3:20pm Advance Directives No June 8:48pm Chief Complaint and Reason for Visit Chief Complaint back Chief Complaint back 6 MONTH F/U (FROM [facility] 11/2022 MAMM/US) Chief Complaint back 6 MONTH F/U (FROM [facility] 11/2022 MAMM/US) CARPAL TUNNEL VS CERVICAL RADICULOPATHY [...] CC Patient January 08, 2025 12:3 5pm Chief Complaint Admit Date Lung cancer screening January 07, 2025 12 :06pm SCREENING January 07, 2025 1:00 pm LDCT- CC Patient January 08, 2025 12:3 5pm Other nonspecific abnormal finding of sneha ng field January 21, 2025 6:49am Shortness of breath January 23, 2025 7:56 am Shortness of breath January 24, 2025 11:3 5am Chief Complaint Admit Date Lung cancer screening January 07, 2025 12 :06pm SCREENING January 07, 2025 1:00 pm LDCT- CC Patient January 08, 2025 12:3 5pm Other nonspecific abnormal finding of sneha ng field January 21, 2025 6:49am Shortness of breath January 23, 2025 7:56 am Shortness of breath January 24, 2025 11:3 5am Results January 30, 2025 9:11 am Reason for Visit Admit Date Encounter for [...] of breath January 08, 2025 12:3 5pm Shortness of breath January 30, 2025 9:11 am 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 January 30, 2025 9:11am Additional Source Comments INFORMATION SOURCE (unrecogn ized section and content) DATE CREATED AUTHOR 02/10/2020 [facility] DATE CREATED AUTHOR AUTHOR'S ORGANIZ ATION 01/19/2025 [facility] DATE CREATED AUTHOR AUTHOR'S ORGANIZ ATION 02/08/2025 [facility] Source Comments (unrecognize d section and content) In the event this informatio n is protected by the Federal Confidentiality of Alcohol and Drug Abuse Patient Records regulations: The Federal rules restrict any use of the information to criminally investigate or prosecute any alcohol or drug abuse patient.[facility] Hospital[facility] the event this information is protected by the Federal Confidentiality of Alcohol and Drug Abuse Patient Records regulations: The Federal rules restrict any use of the information to criminally investigate or prosecute any alcohol or drug abuse patient.[facility] HospitalIn the event this information is protected by the Federal Confidentiality of Alcohol and Drug Abuse Patient Records regulations: The Federal rules restrict any use of the information to criminally investigate or prosecute any alcohol or drug abuse patient.[facility] HospitalIn the event this information is protected by the Federal Confidentiality of Alcohol and Drug Abuse Patient Records regulations: The Federal rules restrict any use of the information to criminally investigate or prosecute any alcohol or drug abuse patient.[facility] HospitalIn the event this information is protected by the Federal Confidentiality of Alcohol and Drug Abuse Patient Records regulations: The Federal rules restrict any use of the information to criminally investigate or prosecute any alcohol or drug abuse patient.[facility] HospitalIn the event this information is protected by the Federal Confidentiality of Alcohol and Drug Abuse Patient Records regulations: The Federal rules restrict any use of the information to criminally investigate or prosecute any alcohol or drug abuse patient.[facility] HospitalIn the event this information is protected by the Federal Confidentiality of Alcohol and Drug Abuse Patient Records regulations: The Federal rules restrict any use of the information to criminally investigate or prosecute any alcohol or drug abuse patient.[facility] HospitalIn the event this information is protected by the Federal Confidentiality of Alcohol and Drug Abuse Patient Records regulations: The Federal rules restrict any use of the information to criminally investigate or prosecute any alcohol or drug abuse patient.[facility] HospitalIn the event this information is protected by the Federal Confidentiality of Alcohol and Drug Abuse Patient Records regulations: The Federal rules restrict any use of the information to criminally investigate or prosecute any alcohol or drug abuse patient.[facility] HospitalIn the event this information is protected by the Federal Confidentiality of Alcohol and Drug Abuse Patient Records regulations: The Federal rules restrict any use of the information to criminally investigate or prosecute any alcohol or drug abuse patient.[facility] HospitalIn the event this information is protected by the Federal Confidentiality of Alcohol and Drug Abuse Patient Records regulations: The Federal rules restrict any use of the information to criminally investigate or prosecute any alcohol or drug abuse patient.[facility] HospitalIn the event this information is protected by the Federal Confidentiality of Alcohol and Drug Abuse Patient Records regulations: The Federal rules restrict any use of the information to criminally investigate or prosecute any alcohol or drug abuse patient.[facility] Reason for Visit (unrecogniz ed section and content) Reason Comments Pain, Back Lower back pain x 3 days-started after lifting Reason Comments Medication Request Reason Comments mammogram orders/US Reason Comments Physical Therapy Specialty Diagnoses / Procedures Referred By Contac t Referred To Contact INTERNAL MEDICINE Diagnoses BACK PAIN Procedures NEW PATIENT Self [address] [place] [address] Referral ID Status Reason Start Date Expiration Date Visits Requested Visits Authorized [id number] Authorized Patient Cleared - Qualified [id number] 10/17/2022 01/15/2023 99 99 Reason Comments 4 week follow up - back pain, lab result s Specialty Diagnoses / Procedures Referred By Contac t Referred To Contact INTERNAL MEDICINE Diagnoses BACK PAIN Procedures NEW PATIENT Self [address] [place] [address] Reason Comments Radiology US Specialty Diagnoses / Procedures Referred By Contac t Referred To Contact [facility] Diagnoses Abnormal screening mammogram Procedures US BREAST LTD LEFT US BREAST UNI REAL TIME WITH IMAGE LIMITED Kandice Mario APRN.ENDOCRINOLOGY NURSE [address] [place] [address] [facility] [address] [place] [address] Referral ID Status Reason Start Date Expiration Date Visits Requested Visits Authorized [id number] Pending Review Auto-Generat ed Referral 10/31/2022 11/30/2023 [...] 2025 End: January 07, 2025 Chayo Black SOCIAL SERVICE MANAGER, SOCIAL SERVICE MANAGER-C Attending Provider Active Start: January 07, 2025 End: January 07, 2025 Bank Operations Officer Relationship Specialty Start Date End Date Edward Martinez MD [address] [place] [address] PCP - General Internal Medicine 10/19/22 Bank Operations Officer Relationship Specialty Start Date End Date Edward Martinez MD [address] [place] [address] PCP - General Internal Medicine 10/19/22 Bank Operations Officer Relationship Specialty Start Date End Date Edward Martinez MD [address] [place] [address] PCP - General Internal Medicine 10/19/22 Bank Operations Officer Relationship Specialty Start Date End Date Edward Martinez MD [address] [place] [address] PCP - General Internal Medicine 10/19/22 Bank Operations Officer Relationship Specialty Start Date End Date Edward Martinez MD [address] [place] [address] PCP - General Internal Medicine 10/19/22 Bank Operations Officer Relationship Specialty Start Date End Date Edward Martinez MD [address] [place] [address] PCP - General Internal Medicine 10/19/22 Bank Operations Officer Relationship Specialty Start Date End Date Edward Martinez MD [address] [place], [place] [address] PCP - General Internal Medicine 10/19/22 Bank Operations Officer Relationship Specialty Start Date End Date Edward Martinez MD [address] [place], [place] [address] PCP - General Internal Medicine 10/19/22 Team Status: Active Member Role Status Dates [facility] Family Provider Active No Primary Care Physician Primary Care Provider Active Team Status: Inactive Member Role Status Dates Dr. Chirag Cuadra DO Emergency Provider Active No Primary Care Physician Primary Care Provider Active Team Status: Active Member Role Status Dates [facility] Family Provider Active Dr. Joann Live MD Primary Care Provider Active Team Status: Inactive Member Role Status Dates Dr. Chirag Cuadra DO Attending Provider, Emergency P rovider Active No Primary Care Physician Primary Care [...] Dr. Elinor Carrasco MD Attending Provider Active Bank Operations Officer Relationship Specialty Start Date End Date Edward Martinez MD [address] [place] [address] PCP - General Internal Medicine 10/19/22 Team Status: Active Member Role Status Dates Dr. Joann Live MD Primary Care Provider Active Start: August 15, 2024 Shabnam Haynes Attending Provider Active Start: Duy alfredo 2024 Team Status: Active Member Role Status Dates Dr. Joann Live MD Primary Care Provider Active Start: January 07, 2025 Chayo Black SOCIAL SERVICE MANAGER, SOCIAL SERVICE MANAGER-C Attending Provider Active Start: January 07, 2025 Chayo Black SOCIAL SERVICE MANAGER, SOCIAL SERVICE MANAGER-C Referring Provider Active Start: January 07, 2025 Team Status: Inactive Member Role Status Dates Dr. Joann Live MD Primary Care Provider Active Start: January 08, 2025 End: January 08, 2025 Dr. Joann Live MD Referring Provider Active Start: January 08, 2025 End: January 08, 2025 Negin Acevedo SOCIAL SERVICE MANAGER, SOCIAL SERVICE MANAGER-C Attending Provider Active Start: January 08, 2025 [...] 2025 End: January 07, 2025 Chayo Black SOCIAL SERVICE MANAGER, SOCIAL SERVICE MANAGER-C Attending Provider Active Start: January 07, 2025 End: January 07, 2025 Team Status: Inactive Member Role/Relationship Status Dates Dr. Joann Live MD Primary Care Provider Active Start: January 07, 2025 End: January 07, 2025 Chayo Black SOCIAL SERVICE MANAGER, SOCIAL SERVICE MANAGER-C Attending Provider Active Start: January 07, 2025 End: January 07, 2025 Chayo Black SOCIAL SERVICE MANAGER, SOCIAL SERVICE MANAGER-C Referring Provider Active Start: January 07, 2025 End: January 07, 2025 Team Status: Inactive Member Role/Relationship Status Dates Dr. Joann Live MD Primary Care Provider Active Start: January 08, 2025 End: January 08, 2025 Dr. Joann Live MD Referring Provider Active Start: January 08, 2025 End: January 08, 2025 Negin Acevedo SOCIAL SERVICE MANAGER, SOCIAL SERVICE MANAGER-C Attending Provider Active Start: January 08, 2025 End: January 08, 2025 Team Status: Active Member Role/Relationship Status Dates Dr. Joann Live MD Primary Care Provider Active Start: January 08, 2025 Negin Acevedo SOCIAL SERVICE MANAGER, SOCIAL SERVICE MANAGER-C Attending Provider Active Start: January 08, 2025 Negin Acevedo SOCIAL SERVICE MANAGER, SOCIAL SERVICE MANAGER-C Referring Provider Active Start: January 08, 2025 Team Status: Inactive Member Role/Relationship Status Dates Dr. Joann Live MD Primary Care Provider Active Start: January 08, 2025 End: January 08, 2025 Negin Acevedo SOCIAL SERVICE MANAGER, SOCIAL SERVICE MANAGER-C Attending Provider Active Start: January 08, 2025 End: January 08, 2025 Negin Acevedo SOCIAL SERVICE MANAGER, SOCIAL SERVICE MANAGER-C Referring Provider Active Start: January 08, 2025 End: January 08, 2025 Bank Operations Officer Relationship Specialty Start Date End Date Edward Martinez MD [address] [place] [address] PCP - General Internal Medicine 10/19/22 Kandice Mead, NETWORK CABLE INSTALLER.ENDOCRINOLOGY NURSE [address] [place] [address] Auto Slip Cover Installer Internal Medicine 06/24/24 Team Status: Inactive Member Role/Relationship Status Dates Dr. Joann Live MD Primary Care Provider Active Start: January 21, 2025 End: January 21, 2025 Negin Acevedo SOCIAL SERVICE MANAGER, SOCIAL SERVICE MANAGER-C Attending Provider Active Start: January 21, 2025 End: January 21, 2025 Negin Acevedo SOCIAL SERVICE MANAGER, SOCIAL SERVICE MANAGER-C Referring Provider Active Start: January 21, 2025 End: January 21, 2025 Team Status: Active Member Role/Relationship Status Dates Dr. Joann Live MD Primary Care Provider Active Start: January 23, 2025 Negni Acevedo SOCIAL SERVICE MANAGER, SOCIAL SERVICE MANAGER-C Attending Provider Active Start: January 23, 2025 Negin Acevedo NP, SOCIAL SERVICE MANAGER-C Referring Provider Active Start: January 23, 2025 Team Status: Active Member Role/Relationship Status Dates Dr. Joann Live MD Primary Care Provider Active Start: January 24, 2025 Negin Acevedo SOCIAL SERVICE MANAGER, SOCIAL SERVICE MANAGER-C Referring Provider Active Start: January 24, 2025 Negin Acevedo NP, SOCIAL SERVICE MANAGER-C Other Provider Active Start: January 24, 2025 Dr. Brodie Low DO Attending Provider Active S tart: January 24, 2025 Team Status: Inactive Member Role/Relationship Status Dates Dr. Joann Live MD Primary Care Provider Active Start: January 23, 2025 End: January 23, 2025 Negin Acevedo NP, SOCIAL SERVICE MANAGER-C Attending Provider Active Start: January 23, 2025 End: January 23, 2025 Negin Acevedo SOCIAL SERVICE MANAGER, SOCIAL SERVICE MANAGER-C Referring Provider Active Start: January 23, 2025 End: January 23, 2025 Team Status: Inactive Member Role/Relationship Status Dates Dr. Joann Live MD Primary Care Provider Active Start: January 30, 2025 End: January 30, 2025 Dr. Joann Live MD Referring Provider Active Start: January 30, 2025 End: January 30, 2025 Negin Acevedo NP, SOCIAL SERVICE MANAGER-C Attending Provider Active Start: January 30, 2025 End: January 30, 2025 Goals (unrecognized section and content) Goals may [...] BE BASED ON THE PRIMARY CLINICAL RECORDS. [facility]. provides no warranty or guarantee of the accuracy or completeness of information in this document.
== END | disposition home or self-care (01) ==
PROVIDERS: PCP Family Medicine; Referring Provider Nurse Practitioner Acute Care; Visit Provider Nurse Practitioner Acute Care
DX: C34.11 Malignant neoplasm of upper lobe, right bronchus or lung (principal)
CPT/HCPCS: 78815; A9552

== ENCOUNTER → 2025-02-28 | Outpatient (CLI) | payer MEDICAID, SELFPAY ==
--- NOTE | 2025-02-28 11:05 | MRI_ITS ---
PROCEDURE: BRAIN W/WO CONTRAST 02/28/2025 REASON FOR EXAM: LUNG CANCER STAGING TECHNIQUE: BRAIN W/WO CONTRAST Multiplanar and multisequence images were obtained. CONTRAST: Clariscan VOLUME: 13 mL COMPARISON: None FINDINGS: There is no abnormal intracranial contrast enhancement. There are small lacunar infarctions in both basal ganglia. There is a normal sulcal pattern and gyral configuration. There is no evidence of acute intracranial hemorrhage or infarction. The ritter-white differentiation is well preserved. There is no evidence of restricted diffusion. The ventricles and basilar cisterns are normal. There are normal flow voids demonstrated in the recognized intracranial vessels. The cerebellum and brainstem are unremarkable. The cerebellar pontine angles are normal. The craniovertebral junction is normal. The sella and suprasellar regions are normal. The orbits and retro-orbital regions are unremarkable. 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 The paranasal sinuses are clear. The mastoid air cells are clear. There is normal bone marrow signal in the skull base and calvarium. MRI/Brain W/WO Contrast IMPRESSION: 1. No evidence of acute intracranial pathology. 2. Small chronic lacunar infarctions in both basal ganglia. Reading Location: [place] [id number]
== END | disposition home or self-care (01) ==
LOC: MRI 11:00
PROVIDERS: PCP Family Medicine; Referring Provider Internal Medicine Medical Oncology; Visit Provider Internal Medicine Medical Oncology
DX: C34.11 Malignant neoplasm of upper lobe, right bronchus or lung (principal); C77.1 Secondary and unspecified malignant neoplasm of intrathoracic lymph nodes; R51.9 Headache, unspecified
CPT/HCPCS: 70553; A9585

== ENCOUNTER 2025-03-03 10:41 | Day surgery (SDC) | payer MEDICAID, SELFPAY ==
[2025-03-03] VITALS (8 sets, daily range): BP systolic 108–120; BP diastolic 68–79; PULSE 65–73; RESP 14–20; TEMP 36.2–36.9; O2SAT 96–100; BMI 24.3
[2025-03-03] MEDS: Lactated Ringers 1,000 ML 15 ML IV (11:19)
--- NOTE | 2025-03-03 11:27 | PCM.PRE.AN2 ---
ASA Classification* ASA Classification ASA Classification: 3 Assessment & Plan Anesthesia* Anesthesia Assessment Anesthesia Assessment: Discussed sedation and/or anesthesia options, risks, benefits, and alternatives with patient/parents/legal guardian/POA. Questions invited. The patient/parents/legal guardian/POA seems to understand and agrees to proceed with anesthesia plan. Reviewed the physical assessment, medical history, allergy history and patient home medications list prior to surgery/procedure/anesthetic and documented any changes. Performed airway and anesthesia risk assessments. Anesthesia Type Anesthesia Type: MAC History Source History Obtained from:: Patient and Chart Anesthesia Focused Assessment* Temperature: 98.4 F Pulse Rate: 71 Blood Pressure: 108/79 Respiratory Rate: 16 Pulse Ox: 96 Oxygen Delivery Method: Room Air Airway Assessment Mouth opens: >3 cm Mallampati Score: I Teeth Condition: Dentures (Patient has full upper dentures.) and Missing (Missing multiple teeth on the bottom molars. Rest are tight.) Neck Range of motion (ROM): Full ROM Labs Anesthesia Preop lab: CBC WBC 7.5 K/mm3 (4.4-11.0) 08/08/23 15:40 08/08/23 RBC 4.40 M/mm3 (4.2-5.4) 08/08/23 15:40 08/08/23 Hgb 13.3 g/dL (12.0-15.0) 08/08/23 15:40 08/08/23 Hct 41.7 % (37-47) 08/08/23 15:40 08/08/23 Plt Count 284 K/mm3 (150-450) 01/08/25 13:54 01/08/25 CHEMISTRY Potassium 3.7 mmol/L (3.5-5.1) 08/08/23 15:40 08/08/23 Sodium 143 mmol/L (136-145) 08/08/23 15:40 08/08/23 BUN 16 mg/dL (7-18) 08/08/23 15:40 08/08/23 Creatinine 0.59 mg/dL (0.55-1.02) 08/08/23 15:40 08/08/23 Glucose 92 mg/dL (74-106) 08/08/23 15:40 08/08/23 TSH 1.15 uIU/mL (0.358-3.74) 08/08/23 15:40 08/08/23 COAG PT 12.0 SECONDS (11.7-14.9) 01/08/25 13:54 01/08/25 Pre-Assessment Diagnosis/Proposed Procedure Planned Operative Procedure(s): (R) Insertion, Vascular Port right poss left Anesthesia History 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 When Was Last Pacemaker Check QUESTION #4 FULL TEXT: You/Your Family Experience fever (hyperthermia) with Anesthesia Last Oral Intake Last Oral intake: Last Oral Intake NPO since 00:00 03/03/25 11:15 Meds taken in AM with sips of water? Meds patient instructed to take am of surgery PONV PONV - ship engineer: PONV - ship engineer Female Yes 02/21/25 10:19 HX of Motion Sickness No 02/21/25 10:19 HX of N/V After Surgery Yes 02/21/25 10:19 Non-Smoker No 02/21/25 10:19 Duration of Surgery greater No 02/21/25 10:19 than 60 minutes Number of Risk Factors 2 02/21/25 10:19 PONV Score Moderate Risk 02/21/25 10:19 Height & Weight Height & Weight: Anesthesia: Height & Weight Height 5 ft 6 in 03/03/25 11:15 Weight: 68.5 kg 03/03/25 11:15 Body Mass Index (BMI) 24.3 03/03/25 11:15 Respiratory Assessment Respiratory Assessment - ship engineer: Respiratory Tract Infection Hx - ship engineer Hx Respiratory Tract Infection No 02/21/25 10:19 STOP Sleep Apnea STOP Sleep Apnea - ship engineer: STOP Sleep Apnea - ship engineer Hx Hypertension No 02/21/25 10:19 Hx Sleep Apnea No 02/21/25 10:19 CPAP BIPAP Do you snore loudly (louder No 02/21/25 10:19 than talking or can be heard Do you often feel tired/ No 02/21/25 10:19 fatigued/ sleepy during daytime? Has anyone observed you stop No 02/21/25 10:19 breathing during sleep? STOP Results Negative 02/21/25 10:19 QUESTION #5 FULL TEXT : Do you snore loudly (louder than talking or can be heard through closed doors)? Tobacco Use History Tobacco Use History - ship engineer: Tobacco Use History - ship engineer Tobacco Use Vapor 10/22/24 08:04 Smoking Status Current every day smoker 02/21/25 10:19 Hx Tobacco Use Yes 02/21/25 10:19 Years Smoking Packs Smoked per Day Smoking Cessation Date was within the last 15 years Hx Smoking Cessation Date Hx Smoking Cessation No 02/21/25 10:19 Counseling Any additional information?: Yes Tobacco Use: Vapor (Patient vaped today.) Hematologic Medial History Hematologic Hx - ship engineer: Hematologic Medical Hx - parachute folder Hx of Blood Transfusion No 02/21/25 10:19 Hx of Transfusion in last 3 No 02/21/25 10:19 Months Date of Last Transfusion (if within last 3 months) Ever experience any problems No 02/21/25 10:19 with transfusion(s)? Specify any problems Hx of Preganancy in last 3 No 02/21/25 10:19 Months Nurse Filling Out Transfusion JZOLLRICHA 02/21/25 10:19 & Questions: Date: 02/21/25 02/21/25 10:19 Time: 10:21 02/21/25 10:19 Patient unable to answer at this time (ie. confused, unrespo /Reproduction History /Reproductive History - ship engineer: /Reproductive Hx- ship engineer Hx Now No 02/21/25 10:19 Gestational Age (in weeks): EDC: Hx Hx Para Hx Section SAB No 02/21/25 10:19 Active Medications Active Medications: Current Medications Generic Name Dose Route Start Last Admin Trade Name Freq PRN Reason Stop Dose Admin Cefazolin Sodium 2 gm/ Sodium 110 mls @ 200 mls/hr 03/03/25 12:15 Chloride IV 03/03/25 12:47 INTRAOP ONE Lactated Ringer's 1,000 mls @ 15 mls/hr 03/03/25 11:00 03/03/25 11:19 IV 15 mls/hr .Q48H EAMON Administration PFSH Medical History Cancer Depression Anxiety Marijuana use History of tobacco use Encounter for screening for malignant neoplasm of lung Wears glasses Wears dentures Alcohol use Arthritis Injury of back Injury of head and neck Restless legs PONV (postoperative nausea and vomiting) Smoker Shortness of breath on exertion Leg cramps History of atrial fibrillation Lumbar disc herniation Home Medications ?Medication ?Instructions ?Recorded ?Last Taken ?Type cetirizine 10 mg capsule (Zyrtec) 10 mg PO DAILY 11/21/15 02/24/25 History multivitamin (Daily Multiple 1 ea PO DAILY 11/24/15 02/24/25 History tablet) diclofenac sodium 1 % topical gel 2 g topical .qid PRN pain 08/15/24 Unknown History ibuprofen 200 mg tablet 200 mg PO Q6H PRN pain 08/15/24 Unknown History Held on 01/21/25. Instructions: pt held turmeric 400 mg capsule 400 mg PO QDAY 08/15/24 02/24/25 History Collagen Peptide powder 1 tbsp PO DAILY 01/07/25 02/24/25 History magnesium 250 mg tablet 250 mg PO QDAY 01/07/25 02/24/25 History albuterol sulfate 90 mcg/actuation 2 inh inhalation Q4H PRN shortness 01/08/25 Unknown Rx aerosol inhaler (Ventolin HFA) of breath or wheezing #18 grams lorazepam 0.5 mg tablet (Ativan) 0.5 mg PO QDAY PRN anxiety 02/21/25 02/24/25 History Allergy/AdvReac Type Severity Reaction Status Date / Time sulfamethoxazole (From AdvReac Nausea/Vom/ Verified 03/03/25 11:13 Bactrim) Diarrhea trimethoprim (From Bactrim) AdvReac Nausea/Vom/ Verified 03/03/25 11:13 Diarrhea Family History Grandmother Lung cancer Heart disease Uncle Lung cancer Surgical History History of tubal ligation History of lumpectomy of right breast History of surgery History of abdominal hysterectomy Social History household members: none current occupational status: employed Smoking Status: Former smoker alcohol intake: current substance use type: does not use Review of Systems (Anesthesia) ROS Narrative System reviewed and no additional complaints, except as documented.
--- NOTE | 2025-03-03 11:42 | PCM.HP.BLA ---
History and Physical Date of Admission: 03/03/25 Intake Vital Signs 02/17/2509:43 02/21/2509:11 02/25/2509:15 Height 5 ft 6 in 5 ft 6 in 5 ft 6 in Weight: 153 lb 1 oz 152 lb 2 oz BMI 24.7 24.5 BP 124/86 H 125/73 H Blood Pressure Location Rt brachial Rt brachial Position Sitting Sitting Respiration 18 18 Pulse 69 63 Pulse Source Monitor Monitor Temp 98.0 F 97.2 F L Temp Source Temporal Pulse Oximetry (%) 97 97 Oxygen Delivery Method room air room air Intake Visit Reasons: PORT PLACEMENT Chief Complaint: port placement Is patient in pain?: No Allergies sulfamethoxazole (From Bactrim) Adverse Reaction (Verified 02/25/25 09:15) Nausea/Vom/Diarrheatrimethoprim (From Bactrim) Adverse Reaction (Verified 02/25/25 09:15) Nausea/Vom/Diarrhea Medications ?Medication ?Instructions ?Recorded ?Confirmed ?Type cetirizine 10 mg capsule (Zyrtec) 10 mg PO DAILY 11/21/15 02/25/25 History multivitamin (Daily Multiple 1 ea PO DAILY 11/24/15 02/25/25 History tablet) diclofenac sodium 1 % topical gel 2 g topical .qid PRN pain 08/15/24 02/25/25 History ibuprofen 200 mg tablet 200 mg PO Q6H PRN pain 08/15/24 02/25/25 History Held on 01/21/25. Instructions: pt held turmeric 400 mg capsule 400 mg PO QDAY 08/15/24 02/25/25 History Collagen Peptide powder 1 tbsp PO DAILY 01/07/25 02/25/25 History magnesium 250 mg tablet 250 mg PO QDAY 01/07/25 02/25/25 History albuterol sulfate 90 mcg/actuation 2 inh inhalation Q4H PRN shortness 01/08/25 02/25/25 Rx aerosol inhaler (Ventolin HFA) of breath or wheezing #18 grams lorazepam 0.5 mg tablet (Ativan) 0.5 mg PO QDAY PRN anxiety 02/21/25 02/25/25 History PFSH Medical History Cancer Depression Anxiety Marijuana use History of tobacco use Encounter for screening for malignant neoplasm of lung Wears glasses Wears dentures Alcohol use Arthritis Injury of back Injury of head and neck Restless legs PONV (postoperative nausea and vomiting) Smoker Shortness of breath on exertion Leg cramps History of atrial fibrillation Lumbar disc herniation Surgical History History of tubal ligation History of lumpectomy of right breast History of surgery History of abdominal hysterectomy Family History Grandmother Lung cancer Heart diseaseUncle Lung cancer Social History household members: none current occupational status: employed Smoking Status: Current every day smoker tobacco type: e-cigarettes alcohol intake: current substance use type: does not use HPI HPI HPI: Patient is a 49-year-old female here with right lung cancer. She is here for port placement. ROS General General: Yes fatigue; No weight change, appetite, colon cancer, breast cancer or weakness HEENT HEENT: Yes difficulty swallowing; No eye injury, eye surgery, swollen glands or hoarseness Endo Endocrine: No thyroid disease, diabetes mellitus, thyroid cancer, Hair loss, heat intolerance or cold intolerance Skin Skin: No rash or changing moles Musc Musculoskeletal: Yes back problems and arthritis; No rheumatoid arthritis, gout or joint pain Cardio Cardiovascular: No murmur, pacemaker, heart disease, atrial fibrillation, high blood pressure, heart attack, heart stent, palpitations, shortness of breath with exertion or chest pain Psych Psychiatric: Yes anxiety; No depression or hearing voices Resp Respiratory: Yes shortness of breath, No sleep apnea, No cough, No COPD, No asthma, Yes emphysema and No wheezing Gastro Gastrointestinal: No abdominal pain, No nausea or vomiting, No diarrhea, No constipation, No blood in stool, Yes acid reflux, No hemorrhoids, No ulcers, No gallbladder problem and No black,tarry stools Mickey Hematologic: No blood thinners, No blood disorders, No bleeding, No anemia and No blood clots Neuro Neurologic: No numbness, No tingling and No weakness Exam Const General: cooperative Orientation: alert and oriented x3 HENMT Head: normal to inspection Neck Neck: normal visual inspection and full ROM Chest Chest palpation & inspection: normal inspection of the chest Resp Effort & Inspection: normal respiratory effort Auscultation: clear to auscultation bilaterally Cardio Rate: regular rate Rhythm: regular rhythm GI Inspection: non-distended Palpation: soft and nontender Skin General: no rashes or lesions noted Neuro General: patient alert and patient oriented x3 Extrem General: full ROM Psych Appearance: grossly normal Mental Status: mental status grossly normal Assessment and Plan Assessment and Plan (1) 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 I discussed left chest port placement with the patient in detail. I discussed the risks including but not limited to bleeding, infection, pneumothorax, line infection or DVT. Patient understands the risks and is willing to proceed. She will hold her turmeric. Allan Fam MD Pager: [facility] [address] [place] [address], [address] [place] [address] Office: I have examined the patient and the H&P has been reviewed. There are no clinical changes since date of exam.
[2025-03-03] MEDS: Midazolam 2 MG/2 ML Syringe IV (12:09)
[2025-03-03] MEDS: Lactated Ringers 1,000 ML 1000 ML IV (12:09)
[2025-03-03] MEDS: Cefazolin 1 GM/5 ML Vial IV (12:14)
[2025-03-03] MEDS: Lidocaine 1% /Epi 1:100 (20ml) 20 ML Vial (12:28)
--- NOTE | 2025-03-03 12:36 | OP.PCM_ITS ---
Operative Report (Standard) Operative Information Date of Procedure: 03/03/25 Pre-Operative Diagnosis: Need for vascular access for chemotherapy Post-Operative Diagnosis: Same Surgery/Procedure Performed: Ultrasound and fluoroscopy guided left chest port placement utilizing left IJ c 40a crew chief: No Type of Anesthesia: Local MAC RN Documented Start/Stop Times: Operation Date: 03/03/25 12:15 Case Time Into Pre-Op 03/03/25 10:53 Anesthesia Start 03/03/25 12:09 Into Room 03/03/25 12:09 Procedure Start 03/03/25 12:21 Procedure End 03/03/25 12:31 Anesthesia End 03/03/25 12:35 Out of Room 03/03/25 12:35 Procedure Start Time: 12:21 Procedure Stop Time: :31 Select all DRAINS/GRAFTS/IMPLANTS that apply: Implanted device Implanted device details: 8 Martiniquais PowerPort Estimated Blood Loss: 5 Specimen collected: No Description of surgery: After obtaining informed consent patient was brought back to the operating room MAC anesthesia was induced and the left chest and neck were prepped in normal sterile fashion. Ultrasound was used to evaluate both IJs and the left IJ was selected. Next, using a needle, the left IJ was accessed and a guidewire was passed on into the superior vena cava under fluoroscopy guidance. A small incision was made over the puncture site and the dilator introducer was placed over the guidewire. Next this was capped and the pocket was made for the port. 1% lidocaine with epinephrine was injected in the proposed port site. An incision was made with scalpel. Electrocautery was used to make a pocket under the skin and subcutaneous tissue. Hemostasis was obtained. Next, the catheter was tunneled up to the neck incision site and placed through the introducer. The peel-away introducer was removed and the position of the catheter was confirmed on fluoroscopy. Next, the catheter was trimmed and attached to the port with the locking device. Interrupted 2-0 Vicryl sutures were used to anchor the port to the chest wall and then the port was placed inside the pocket. The pocket was then flushed with saline and the port irrigated with saline. There was good blood return and the port flushed easily. Next, heparin was injected into the port. The skin was closed with subcutaneous interrupted 3-0 Vicryl sutures. A single 3-0 Vicryl sutures placed under the skin at the neck incision site. Steri-Strips were placed as well as op sites. Patient tolerated procedure well, was taken to PACU in stable condition. Chest x-ray will be obtained. Surgical Findings: None Complications Complications: No Admit VTE Documentation VTE Mechan Device Prophylaxis: SCD's
--- NOTE | 2025-03-03 12:37 | DCINST_ITS ---
Discharge Instructions Procedure Port-A-Cath Diet Discharge Diet: Light diet - advance as tolerated (Pain medication may cause nausea. You should typically eat light foods as you take your pain medication.) Activity Discharge Activity: Return to Normal Activity and May Shower (with your bandage in place in 1-2 days after surgery. DO NOT SHOWER WHEN YOUR PORT IS ACCESSED.) Additional Activity Instructions:: Alternate Tylenol and ibuprofen for pain control Dressing / Incision Call your doctor if your incision/area has: Continuous Slow Oozing, Sudden Increased Bleeding, Increased Pain/ Swelling, Increased Redness and Foul Smelling Discharge Call your doctor if you observe: Fever of 101 or Higher Remove Dressing in: 2 days Cleanse incision/area with: Soap & Water Follow Up Care Please Follow Up With: Allan Fam MD When: as needed [phone] Test Results: Test results from this visit will be discussed in further detail at your follow- up appointment, if applicable. Discharge Plan Admission Attending Provider: Allan Fam Primary Care Provider: Joann Live Instructions Print Language: Turkmen Discharge Orders/Prescriptions Prescriptions: No Action ibuprofen 200 mg tablet 200 mg PO Q6H PRN (Reason: pain) diclofenac sodium 1 % gel 2 g topical .qid PRN (Reason: pain) turmeric 400 mg capsule 400 mg PO QDAY magnesium 250 mg tablet 250 mg PO QDAY Collagen Peptide powder 1 tbsp PO DAILY Rx Instructions: 1 tbsp in her coffee albuterol sulfate [Ventolin HFA] 90 mcg/actuation HFA aerosol inhaler 2 inh inhalation Q4H PRN (Reason: shortness of breath or wheezing) Qty: 18 11RF lorazepam [Ativan] 0.5 mg tablet 0.5 mg PO QDAY PRN (Reason: anxiety) Zyrtec 10 MG capsule 10 mg PO DAILY multivitamin [Daily Multiple] 1 EACH tablet 1 ea PO DAILY Referrals / Follow Up: Joann Live MD [Primary Care Provider] - Disposition Disposition (needs filled in before D/C Order can be placed): Home, Self Care
--- NOTE | 2025-03-03 12:40 | RAD_ITS ---
PROCEDURE: CXR FOR LINE PLACEMENT 03/03/2025 REASON FOR EXAM: LINE PLACEMENT TECHNIQUE: CXR FOR LINE PLACEMENT COMPARISON: Prior study dated January 21, 2025. FINDINGS: The tip of the left-sided port a catheter is at the junction of the superior vena cava and right atrium. Right medial apical mass. No evidence of pneumothorax. RAD/CXR for Line Placement IMPRESSION: The tip of the left-sided port a catheter is at the junction of the superior ve na cava and right atrium. Reading Location: [id number]
--- NOTE | 2025-03-03 12:40 | PCM.POST.ANE ---
Anesthesia: Postop Eval I Current Vital Signs Temperature: 97.7 F Pulse Rate: 73 Blood Pressure: 111/68 Respiratory Rate: 20 Pulse Ox: 100 Oxygen Delivery Method: Room Air Assessment Airway patent: Yes Spontaneous unlabored respirations: Yes Mental status: Awake and Calm nausea: No Vomiting: No Anesthesia Complication: No Fluid Hydration Crystalloid volume administer (ml): 300 Total IV fluid infused: 300 Progress Note Anesthesia document: Postop Eval 1 completed: Yes
--- OUTSIDE RECORDS SUMMARY | 2025-03-03 22:07 | XMS RPT_ITS | CCD ---
Author Organization [facility] CliniSyma Care Team Providers Care Grease Maker Name Role Phone Arriaga POTATO PANCAKE FRIER Virginie E Unavailable Unavailable Arriaga ROSARIO, Virginie [...] Joann Live MD Primary Care Provider Wayne SHOTGUN SHELL REPRINTING UNIT OPERATOR-CChayo Attending Provider Wayne GARLAND-CChayo Referring Provider Negin Cochran Attending Provider Dr. Joann Live MD Primary Care Provider Dr. Joann Live MD Referring Provider Kristina GARLAND-C, Negin Referring Provider [place] DISH MAKER.CLEANING VALIDATION CONSULTANT, Kandice M Unavailable Kristina SHOTGUN SHELL REPRINTING UNIT OPERATOR-C, Negin Other Provider [phone] Devante MARTIN, Dr. Calloway Attending Provider Wayne SHOTGUN SHELL REPRINTING UNIT OPERATOR-C, Chayo Referring Provider Dr. Ottoniel Cabrera MD Attending Provider Maria T FRANCOIS, Dr. Magañanah Primary Care Provider Maria T FRANCOIS, Dr. David Referring Provider Dr. Karthik Galan DO Attending Provider Sarwat FRANCOIS, Dr. Lemus Attending Provider Rick FRANCOIS, Dr. Alcazar Referring Provider Karthik Galan Attending Unavailable [facility] Primary Care Unavailable [facility] [place] Primary Care Unavailable Acevedo SHOTGUN SHELL REPRINTING UNIT OPERATOR, Negin Attending Unavailable Acevedo SHOTGUN SHELL REPRINTING UNIT OPERATOR, Negin Referring Unavailable Miedel, Joann Referring Unavailable Acevedo SHOTGUN SHELL REPRINTING UNIT OPERATOR, Negin Attending Unavailable [facility] Primary Care Unavailable [facility], Joann Referring Unavailable [facility] [place] Primary Care Unavailable Acevedo SHOTGUN SHELL REPRINTING UNIT OPERATOR, Negin Attending Unavailable Mied, Joann Referring Unavailable Justus Robertson Attending Unavailable [facility] Primary Care Unavailable Acevedo SHOTGUN SHELL REPRINTING UNIT OPERATOR, Negin Attending Unavailable Acevedo SHOTGUN SHELL REPRINTING UNIT OPERATOR, Negin Referring Unavailable [facility] [place] Primary Care Unavailable Wayne SHOTGUN SHELL REPRINTING UNIT OPERATOR, Chayo Referring Unavailable Wayne SHOTGUN SHELL REPRINTING UNIT OPERATOR, Chayo Attending Unavailable [facility] [place] Primary Care Unavailable Acevedo SHOTGUN SHELL REPRINTING UNIT OPERATOR, Negin Attending Unavailable Acevedo SHOTGUN SHELL REPRINTING UNIT OPERATOR, Negin Referring Unavailable Msed, Joann Primary Care Unavailable Miedel, Joann Primary Care Unavailable Acevedo SHOTGUN SHELL REPRINTING UNIT OPERATOR, Negin Attending Unavailable Acevedo SHOTGUN SHELL REPRINTING UNIT OPERATOR, Negin Referring Unavailable Miedel, Joann Primary Care Unavailable Acevedo SHOTGUN SHELL REPRINTING UNIT OPERATOR, Negin Attending Unavailable Acevedo SHOTGUN SHELL REPRINTING UNIT OPERATOR, Negin Referring Unavailable Miedel, Joann Primary Care Unavailable Ottoniel Cabrera Attending Unavailable Acevedo SHOTGUN SHELL REPRINTING UNIT OPERATOR, Negin Referring Unavailable Miedel, Joann Referring Unavailable Karthik Galan Attending Unavailable [facility] [place] Primary Care Unavailable Allan Fam Attending Unavailable [facility] Primary Care Unavailable Praendy Ottoniel Referring Unavailable Shabnam Haynes Attending Unavailable [facility] Primary Care Unavailable Kristina SHOTGUN SHELL REPRINTING UNIT OPERATOR, Negin Referring Unavailable Brodie Low Attending Unavailable [facility] Primary Care Unavailable Kristina SHOTGUN SHELL REPRINTING UNIT OPERATOR, Negin Consulting Unavailable [facility], Joann Referring Unavailable Justus Robertson Attending Unavailable Justus Robertson Consulting Unavailable [facility] Primary Care Unavailable Wayne SHOTGUN SHELL REPRINTING UNIT OPERATOR, Chayo Referring Unavailable Wayne SHOTGUN SHELL REPRINTING UNIT OPERATOR, Chayo Attending Unavailable [facility] Primary Care Unavailable [facility], Joann Referring Unavailable [facility] [place] Attending Unavailable [facility] Primary Care Unavailable Kristina SHOTGUN SHELL REPRINTING UNIT OPERATOR, Negin Referring Unavailable [facility] Primary Care Unavailable Kristina SHOTGUN SHELL REPRINTING UNIT OPERATOR, Negin Attending Unavailable [facility] Primary Care Unavailable PraOttoniel mackenzie Referring Unavailable Ottoniel Cabrera Attending Unavailable Allan Fam Referring Unavailable Allan Fam Attending Unavailable [facility] Unavailable Sarwat FRANCOIS, Dr. Lemus Referring Provider Dr. Allan Fam MD Other Provider [phone] Allergies Allergy Classification Reported Allergen(s) Allergy Type Date of Onset Reaction(s) Facility (18 sources) Sulfamethoxazole Drug Allergy 3 Nausea/Vom/[facility] (18 sources) Trimethoprim Drug Allergy 3 Nausea/Vom/[facility] (1 source) Sulfamethoxazole Drug Allergy 5 [facility] (1 source) Trimethoprim Drug Allergy 5 [facility] Medications Current Medications Medication Drug Class(es) Dates Sig (Normalized) Sig (Original) [id number] 200 actuat albuterol 0.09 mg/actuat metered dose inhaler (11 sources) beta2-Adrenergic Agonist Start: 01-08-2025 Albuterol Sulfate (Ventolin Hfa) 90 mcg/actuation HFA aerosol inhaler Active 2 NMA INHALATION Q4H as needed for shortness of breath or wheezing 03 06January 08, 2025 12:00am Mass of upper lobe of right lung Other nonspecific abnormal finding of lung field B-Complex With Vitamin C (4 sources) Start: 01-08-2017 B-Complex With Vitamin C Active 1 EACH PO DAILY January 08, 2017 12:00am Start: 01-08-2017 B-Complex With Vitamin C Active 1 EACH PO DAILY January 07, 2017 11:00pm Collagen Peptide powder (12 sources) Start: 01-07-2025 Collagen Pepti de powder Active 1 tbsp PO DAILY January 07, 2025 12:00am 1 tbsp in her coffee Start: 01-07-2025 Collagen Pepti de powder Active PO DAILY January 07, 2025 12:00am diclofenac sodium 0.01 mg/mg topical gel (14 sources) Nonsteroidal Anti-inflammatory Drug Start: 08-15-2024 apply [...] by mouth every 6 hours as needed. LORazepam 0.5 mg oral tablet (3 sources) Benzodiazepine Start: take 1 tablet by mouth once daily as needed for anxiety Lorazepam (Ativan) 0.5 mg tablet Active 0.5 mg PO daily as needed for anxiety February 21, 2025 12:00am Magnesium (20 sources) Start: take 1 tablet by mouth once daily [...] Multivitamin (Daily Multiple Vitamin) 1 EACH tablet (18 sources) Start: 11-24-2015 take 1 tablet by [...] kenia th once daily. polyethylene glycol 3350 555553 mg / potassium chloride 2980 mg / sodium bicarbonate 6720 mg / sodium chloride 5840 mg / sodium sulfate 34796 mg powder for oral solution (1 source) Osmotic Laxative Start: 11-15-2022 End: 11-15-2022 peg 3350-electrolytes (COLYTE) 240-22.72-6.72 -5.84 gram solution Indications: Special screening for malignant neoplasms, colon Take 4,000 mL by mouth one time only for 1 dose. 4000 mL 0 11/15/2022 11/15/2022 Active Comment on above: Take 4,000 mL by kenia th one time only for 1 dose. Turmeric extract (14 sources) Start: 08-15-2024 take 1 capsule by mouth once daily Turmeric 400 mg capsule Active 400 mg PO daily August 15, 2024 1:00am Completed/Discontinued Medications Medication Drug Class(es) Dates Sig (Normalized) Sig (Original) acetaminophen 325 mg / oxyCODONE hydrochloride 5 mg oral tablet (18 sources) Opioid Agonist Start: 07-08-2023 End: 08-15-2024 [...] July 08, 2023 Amox-Clav 875-125 mg Tablet (18 sources) Start: 07-04-2019 End: 08-15-2024 Amox-Clav 875-125 [...] B-Complex With Vitamin C 1 EACH tablet (14 sources) Start : 01-08 End: 08-15 take [...] on above: Take 1 capsule by mo [facility] three times daily as needed for Cough. cetirizine hydrochloride 10 mg oral tablet (20 sources) Histamine-1 Receptor Antagonist Start : 01-20 ZYRTEC ALLERGY 10 MG CAPS take as directed CETIRIZINE HCL [id number] Virginie Arriaga LPN Start: 11-21-2015 take 1 capsule by mo [facility] once daily Cetirizine (Zyrtec) 10 MG capsule Active 10 mg PO DAILY November 21, 2015 12:00am take 1 tablet by kenia once daily cetirizine (ZYRTEC) 5 mg tablet Take 5 mg by mouth once daily. 0 Active Comment on above: Take 5 mg by mouth o nce daily. cyclobenzaprine hydrochloride 10 mg oral tablet (18 sources) Muscle Relaxant Start: End: take 1 tablet by mouth three times daily as needed for muscle spasms Cyclobenzaprine 10 mg tablet Discontinued 10 mg PO THREE TIMES A DAY as needed for Muscle Spasm 15 July 08, 2023 1:00am August 15, 2024 12:37pm doxycycline hyclate 100 mg oral capsule (2 sources) Tetracycline-class Drug Start: DOXYCYCLINE HYCLATE 100 MG CAPS BID DOXYCYCLINE HYCLATE [id number] Virginie Arriaga LPN methocarbamol 500 mg oral tablet (2 sources) Muscle Relaxant Start: End: take 1 tablet by mouth every six hours as needed methocarbamol (ROBAXIN) 500 mg tablet Take 1 tablet by mouth every 6 hours as needed (Pain) for up to 3 days. 12 tablet 10/18/2022 10/21/2022 Comment on above: Take 1 tablet by [facility] every 6 hours as needed (Pain) for up to 3 days. 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 Cardiac dysrhythmias (1 source) Unspecified atrial fibrillation; Translations: [Unspecified atrial fibrillation] Onset: 01-11-2025 Chronic Headache; including migraine (20 sources) Morning headache; Translations: [Morning headache] 01-08-2025 Episodic Headache; including migraine (2 sources) Headache; including migraine; Translations: [Headache, unspecified] Onset: 01-08-2025 Immunizations and screening for infectious disease (3 sources) Patient encounter status; Translations: [Encounter for immunization] Episodic Nonmalignant breast conditions (18 sources) Abscess of breast; Translations: [Abscess of the breast and nipple] 07-05-2019 Episodic Other aftercare (18 sources) Wound finding; Translations: [Encounter for other specified aftercare] 10-30-2016 Episodic Other aftercare (18 sources) Admission statuses; Translations: [Encounter for other specified aftercare] 11-27-2015 Episodic Other connective tissue disease (18 sources) Spasm of cervical paraspinous muscle; Translations: [Other muscle spasm] 07-08-2023 Episodic Other lower respiratory disease (20 sources) Dyspnea; Translations: [Shortness of breath] 01-08-2025 Episodic Other lower respiratory disease (20 sources) Lung mass; Translations: [Other nonspecific abnormal finding of lung field] 01-08-2025 Episodic Comment on above: 4.5 x 3.5 x 2.9 cm R UL Other lower respiratory disease (20 sources) Hypoxia; Translations: [Hypoxemia] 01-08-2025 Episodic Other lower respiratory disease (2 sources) Hypoxemia; Translations: [Hypoxemia] Onset: 01-08-2025 Episodic Other lower respiratory disease (2 sources) Shortness of breath; Translations: [Shortness of breath] Onset: 02-20-2025 Episodic Other lower respiratory disease (2 sources) [...] of mental health and substance abuse codes (20 sources) Tobacco use and exposure - finding; Translations: [Personal history of nicotine dependence] Onset: 02-17-2025 01-07-2025 Episodic Secondary malignancies (6 sources) Secondary malignant neoplasm of lymph node; Translations: [Secondary and unspecified malignant neoplasm of lymph node, unspecified] 02-17-2025 Chronic Secondary malignancies (1 source) Secondary and unspecified malignant neoplasm of intrathoracic lymph nodes; Translations: [Secondary and unspecified malignant neoplasm of intrathoracic lymph nodes] Onset: 02-28-2025 Chronic Spondylosis; intervertebral disc disorders; other back problems (20 sources) Acute back pain with sciatica; Translations: [Lumbago with sciatica, right side] Onset: 10-19-2022 Episodic Substance-related disorders (12 sources) Tobacco user; Translations: [Nicotine dependence, unspecified, uncomplicated] Onset: 12-31-2015 12-31-2015 Chronic Unclassified (10 sources) 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 Unclassified (8 sources) C34.11 - Malignant neoplasm of upper lobe, right bronchus or lung Unclassified (8 sources) 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 Joann Live MD Status: REG CLI Study: Brain W/WO Contrast Date of Exam: 02/28/25 Exam# [id number] Ordering Dr: Ottoniel Cabrera MD PROCEDURE: BRAIN W/WO CONTRAST 02/28/2025 REASON FOR EXAM: LUNG CANCER STAGING TECHNIQUE: BRAIN W/WO CONTRAST Multiplanar and multisequence images were obtained. CONTRAST: Clariscan VOLUME: 13 mL COMPARISON: None FINDINGS: There is no abnormal intracranial contrast enhancement. There are small lacunar infarctions in both basal ganglia. There is a normal sulcal pattern and gyral configuration. There is no evidence of acute intracranial hemorrhage or infarction. The ritter-white differentiation is well preserved. There is no evidence of restricted diffusion. The ventricles and basilar cisterns are normal. There are normal flow voids demonstrated in the recognized intracranial vessels. The cerebellum and brainstem are unremarkable. The cerebellar pontine angles are normal. The craniovertebral junction is normal. The sella and suprasellar regions are normal. The orbits and retro-orbital regions are unremarkable. 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 The paranasal sinuses are clear. The mastoid air cells are clear. There is normal bone marrow signal in the skull base and calvarium. MRI/Brain W/WO Contrast IMPRESSION: 1. No evidence of acute intracranial pathology. 2. Small chronic lacunar infarctions in both basal ganglia. Reading Location: [place] [address] CC: Dr. Joann Live MD; Dr. Ottoniel Cabrera MD Account Clerk: Signed Normal [facility] Surgery Visit Reporton 02-25 Surgery Visit Report [facility] [address] [place] [address] OFFICE VISIT Date of Service: 02/25/25 MR#: [id number] Acct: [id number] Name: ROSARIO KAISER Rep #: [id number] : 1975 Provider: Dr. Allan daily MD Age/Sex: 49/F Location: [facility] Status: Signed Intake Vital Signs 02/17/25 09:43 02/21/25 09:11 02/25/25 09:15 Height 5 ft 6 in 5 ft 6 in 5 ft 6 in Weight: 153 lb 1 oz 152 lb 2 oz BMI 24.7 24.5 BP 124/86 H 125/73 H Blood Pressure Location Rt brachial Rt brachial Position Sitting Sitting Respiration 18 18 Pulse 69 63 Pulse Source Monitor Monitor Temp 98.0 F 97.2 F L Temp Source Temporal Pulse Oximetry (%) 97 97 Oxygen Delivery Method room air room air Intake Visit Reasons: PORT PLACEMENT Chief Complaint: port placement Is patient in pain?: No Allergies sulfamethoxazole (From Bactrim) Adverse Reaction (Verified 02/25/25 09:15) Nausea/Vom/Diarrhea trimethoprim (From Bactrim) Adverse Reaction (Verified 02/25/25 09:15) Nausea/Vom/Diarrhea Medications ???Medication ???Instructions ???Recorded ???Confirmed ???Type cetirizine 10 mg capsule (Zyrtec) 10 mg PO DAILY 11/21/15 02/25/25 History multivitamin (Daily Multiple 1 ea PO DAILY 11/24/15 02/25/25 Hi story tablet) diclofenac sodium 1 % topical gel 2 g topical .qid PRN pain 5 02/25/25 History ibuprofen 200 mg tablet 200 mg PO Q6H PRN pain 08/15/24 History Held on 01/21/25. Instructions: pt held turmeric 400 mg capsule 400 mg PO QDAY 08/15/24 02/25/25 H istory Collagen Peptide powder 1 tbsp PO DAILY 01/07/25 02/25/25 History magnesium 250 mg tablet 250 mg PO QDAY 01/07/25 02/25/25 H istory albuterol sulfate 90 mcg/actuation 2 inh inhalation Q4H PRN shortne ss 01/08/25 02/25/25 Rx aerosol inhaler (Ventolin HFA) of breath or wheezing #18 grams lorazepam 0.5 mg tablet (Ativan) 0.5 mg PO QDAY PRN anxiety 5 02/25/25 History PFSH Medical History Cancer Depression Anxiety Marijuana use History of tobacco use Encounter for screening [...] History of surgery History of abdominal hysterectomy Family History Grandmother Lung cancer Heart disease Uncle Lung cancer Social History household members: none current occupational status: employed Smoking Status: Current every day smoker tobacco type: e-cigarettes alcohol intake: current substance use type: does not use HPI HPI HPI: Patient is a 49-year-old female here with right lung cancer. She is here for port placement. ROS General General: Yes fatigue; No weight change, appetite, colon cancer, breast cancer or weakness HEENT HEENT: Yes difficulty swallowing; No eye injury, eye surgery, swollen glands or hoarseness Endo Endocrine: No thyroid disease, diabetes mellitus, thyroid cancer, Hair loss, heat intolerance or cold intolerance Skin Skin: No rash or changing moles Musc Musculoskeletal: Yes back problems and arthritis; No rheumatoid arthritis, gout or joint pain Cardio Cardiovascular: No murmur, pacemaker, heart disease, atrial fibrillation, high blood pressure, heart attack, heart stent, palpitations, shortness of breath with exertion or chest pain Psych Psychiatric: Yes anxiety; No depression or hearing voices Resp Respiratory: Yes shortness of breath, No sleep apnea, No cough, No COPD, No asthma, Yes emphysema and No wheezing Gastro Gastrointestinal: No abdominal pain, No nausea or vomiting, No diarrhea, No constipation, No blood in stool, Yes acid reflux, No hemorrhoids, No ulcers, No gallbladder problem and No black,tarry stools Mickey Hematologic: No blood thinners, No blood disorders, No bleeding, No anemia and No blood clots Neuro Neurologic: No numbness, No tingling and No weakness Exam Const General: cooperative Orientation: alert and oriented x3 HENMT Head: normal to inspection Neck Neck: normal visual inspection and full ROM Chest Chest palpation inspection: normal inspection of the chest Resp Effort Inspection: normal respiratory effort Auscultation: clear to auscultation bilaterally Cardio Rate: regular rate Rhythm: regular (more content not included)... Normal [facility] Radiation Oncology Visiton 0 02-21-2025 Radiation Oncology Visit [facility] [place] [address] OFFICE VISIT Date of Service: 02/21/25908 MR#: [id number] Acct: [id number] Name: ROSARIO KAISER DANIEL Rep #: [id number] : 1975 From: Karthik Galan DO Age/Sex: 49/F Location: [facility] Status: Signed Intake Vital Signs 02/17/25 09:43 02/21/25 09:11 Height 5 ft 6 in 5 ft 6 in Weight: 153 lb 9 oz 153 lb 1 oz BMI 24.7 24.7 BP 124/86 H Blood Pressure Location Rt brachial Position Sitting Respiration 18 Pulse 69 Pulse Source Monitor Temp 98.0 F Temperature Source Temporal Artery Pulse Oximetry (%) 97 Oxygen Delivery Method room air Intake Visit Reasons: CONSULT - LUNG Is patient in pain?: No Allergies sulfamethoxazole (From Bactrim) Adverse Reaction (Verified 02/21/25 10:08) Nausea/Vom/Diarrhea trimethoprim (From Bactrim) Adverse Reaction (Verified 02/21/25 10:08) Nausea/Vom/Diarrhea Medications ???Medication ???Instructions ???Recorded ???Confirmed ???Type cetirizine 10 mg capsule (Zyrtec) 10 mg PO DAILY 11/21/15 02/21/25 History multivitamin (Daily Multiple 1 ea PO DAILY 11/24/15 02/21/25 Hi story tablet) diclofenac sodium 1 % topical gel 2 g topical .qid PRN pain 5 02/21/25 History ibuprofen 200 mg tablet 200 mg PO Q6H PRN pain 08/15/24 History Held on 01/21/25. Instructions: pt held turmeric 400 mg capsule 400 mg PO QDAY 08/15/24 02/21/25 H istory Collagen Peptide powder 1 tbsp PO DAILY 01/07/25 02/21/25 History magnesium 250 mg tablet 250 mg PO QDAY 01/07/25 02/21/25 H istory albuterol sulfate 90 mcg/actuation 2 inh inhalation Q4H PRN shortne ss 01/08/25 02/21/25 Rx aerosol inhaler (Ventolin HFA) of breath or wheezing #18 grams lorazepam 0.5 mg tablet (Ativan) 0.5 mg PO QDAY PRN anxiety 5 02/21/25 History PFSH PFSH Medical History History of tobacco use [...] Q6H PRN pain 08/15/24 Un known History Held on 01/21/25. Instructions: pt held turmeric 400 mg capsule 400 mg PO QDAY 08/15/24 Unknown Hi story Collagen Peptide powder 1 tbsp PO DAILY 01/07/25 Unknown H istory magnesium 250 mg tablet 250 mg PO QDAY 01/07/25 Unknown Hi story albuterol sulfate 90 mcg/actuation 2 inh inhalation Q4H PRN shortne ss 01/08/25 Unknown Rx aerosol inhaler (Ventolin HFA) of breath or wheezing #18 grams lorazepam 0.5 mg tablet (Ativan) 0.5 mg PO QDAY PRN anxiety 5 Unknown History Allergy/AdvReac Type Severity Reaction Status Date / Time sulfamethoxazole (From AdvReac Nausea/Vom/ Verified 02/21/25 10:08 Bactrim) Diarrhea trimethoprim (From Bactrim) AdvReac Nausea/Vom/ Verified 02/21/25 10:08 Diarrhea Family History Grandmother Lung cancer Heart disease Uncle Lung cancer Surgical History History of tubal ligation History of lumpectomy of right breast History of surgery History of abdominal hysterectomy Social History household members: none current occupational status: employed Smoking Status: Former smoker alcohol intake: current substance use type: does not use Referring Provider: Ottoniel Cabrera MD Diagnosis: Rosario Kaiser is a 49 year-old female diagnosed with 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 History of Present Illness: 01/07/2025: Patient completed low-dose CT scan for lung cancer screening.??? This demonstrated a 4.5 x 3.9 x 2.9 cm mass noted in the right apex with spiculated borders concerning for neoplastic process.??? There is a smaller pulmonary lesion measuring about 1.4 x 1.2 x 1.5 cm within the right anna, mild emphysema is noted.??? No other abnormalities are appreciated. 01/21/2025: Patient completed CT-guided biopsy of the right lung mass (more content not included)... Normal [facility] Oncology Visit Reporton 08 Oncology Visit Report [facility] [address] [place] [address] OFFICE VISIT Date of Service: 02/17/25 0936 MR#: [id number] Acct: [id number] Name: ROSARIO KAISER Rep #: [id number] : 1975 From: Ottoniel Cabrera MD Age/Sex: 49/F Location: [facility] Status: Signed HPI Subjective Date of Service 02/17/25 Chief Complaint Referred for Lung cancer managemet. History of Present Illness 49-year-old woman underwent lung cancer screening on 01/07/2025. Low-dose CT showed 4.5 cm right apex mass. She had a CT-guided biopsy on 01/21/2025, pathology showed squamous cell carcinoma. She had a PET CT scan done on 02/11/2025. She is now referred for further evaluation and management. She feels well, denies fever night sweats or weight loss. [facility] Medical History History of tobacco use Encounter [...] History of surgery History of abdominal hysterectomy Family History Grandmother Lung cancer Heart disease Uncle Lung cancer Social History household members: none current occupational status: employed Smoking Status: Former smoker alcohol intake: current substance use type: does not use ROS Constitutional Constitutional: Reports systems reviewed and no addt'l complaints, except as documented Eyes Eyes: Reports systems reviewed and no addt'l complaints, except as documented ENT HEENT: Reports systems reviewed and no addt'l complaints, except as documented Cardiovascular Cardiovascular: Reports systems reviewed and no addt'l complaints, except as documented Respiratory/Chest Respiratory/Chest: Reports systems reviewed and no addt'l complaints, except as documented Gastrointestinal Gastrointestinal: Reports systems reviewed and no addt'l complaints, except as documented Genitourinary Genitourinary: Reports systems reviewed and no addt'l complaints, except as documented Musculoskeletal Musculoskeletal: Reports systems reviewed and no addt'l complaints, except as documented Integumentary Integumentary: Reports systems reviewed and no addt'l complaints, except as documented Neurologic Neurologic: Reports systems reviewed and no addt'l complaints, except as documented Psychiatric Psychiatric: Reports systems reviewed and no addt'l complaints, except as documented Endocrine Endocrinology: Reports systems reviewed and no addt'l complaints, except as documented Hematologic/Lymphatic Hematologic/Lymphatic : Reports systems reviewed and no addt'l complaints, except as documented Allergic/Immunologic Allergic/Immunologic: Reports systems reviewed and no addt'l complaints, except as documented Intake Vital Signs 01/30/25 08:47 02/17/25 09:41 02/17/25 09:43 02/17/25 09:43 Height 5 ft 6 in 5 ft 6 in 5 ft 6 in 5 ft 6 in Weight: 69.655 kg 69.655 kg BMI 24.7 24.7 BP 122/82 H Blood Pressure Location Lt brachial Position Sitting Respiration 18 Pulse 80 Pulse Source Monitor Temp 98 F Temperature Source Temporal Artery Pulse Oximetry (%) 98 Oxygen Delivery Method room air Intake Is patient in pain?: Yes (biopsy site and right shoulder) Pain scale (1-10): 5 Allergies sulfamethoxazole (From Bactrim) Adverse Reaction (Verified 02/17/25 09:38) Nausea/Vom/Diarrhea trimethoprim (From Bactrim) Adverse Reaction (Verified 02/17/25 09:38) Nausea/Vom/Diarrhea Medications ???Medication ???Instructions ???Recorded ???Confirmed ???Type cetirizine 10 mg capsule (Zyrtec) 10 mg PO DAILY 11/21/15 02/17/25 History multivitamin (Daily Multiple 1 ea PO DAILY 11/24/15 02/17/25 Hi story tablet) diclofenac sodium 1 % topical gel 2 g topical .qid PRN pain 08/15/ 5 02/17/25 History ibuprofen 200 mg tablet 200 mg PO Q6H PRN pain 08/15/24 History Held on 01/21/25. Instructions: pt held turmeric 400 mg capsule 400 mg PO QDAY 08/15/24 02/17/25 H istory Collagen Peptide powder PO DAILY 01/07/25 02/17/25 History magnesium 250 mg tablet 250 mg PO QDAY 01/07/25 02/17/25 H istory albuterol sulfate 90 mcg/actuation 2 inh inhalation Q4H PRN shortne ss 01/08/25 02/17/25 Rx aerosol inhaler (Ventolin HFA) of breath or wheezing #18 grams Central Venous Access Central Venous Access: No 02/11/2025 PET (more content not included)... Normal [facility] Positron emission tomography scan reportOrdered By: Wyatt Cobb on 02-12-2025 PT Unspecified body region [facility] Imaging Services [address] [place] [address] PET/CT Tumor Base -Thigh Init MR#: [id number] Acct: [id number] Name: ROSARIO KAISER Rep #: [id number] : 1975 F 49 From: Dimitrios Cobb MD PCP: Dr. Joann Live MD Status: REG CLI Study:PET/CT Tumor Base -Thigh Init Date of E xam: 02/11/25 Exam# [id number] Ordering Dr: Kiko Acevedo SHOTGUN SHELL REPRINTING UNIT OPERATOR SHOTGUN SHELL REPRINTING UNIT OPERATOR-C PROCEDURE: PET/CT TUMOR BASE -THIGH INIT 02/11/2025 REASON FOR EXAM: 49 y/o F with LUNG. Squamous cell carcinoma of the right upper lobe. TECHNIQUE: Following the intravenous administration of radionucleotide, image acquisition on a dedicated PET/CT unit was performed at one hour post injection. A preliminary CT study encompassing the Skull base, neck, chest, abdomen, pelvis, and proximal thighs was performed for purposes of attenuation correction and anatomic localization. The proximal thighs were also included. The patient's blood glucose level was 95 mg/dL (allowable range: 50-180 mg/dL). RADIOPHARMACEUTICAL: 13.807 mCi 18F-FDG (Fluorodeoxyglucose F18) IV was injectedinto he patient. RADIATION DOSE SUMMARY: Effective Dose: Approximately 7 mSv for a standard whole-body PET scan. Organ Doses: Varies by organ, with higher doses typically to the bladder, liver,and brain. COMPARISON: COMPARISON FROM CT, PET OR OTHER PERTINENT EXAMS: Chest CT of 01/07/2025. FINDINGS: Physiologic uptake: There may be expected metabolic uptake within the brain, tongue and floor of the mouth and larynx/vocal cords, heart, anna (many normal individuals have hilar uptake in less than 3 nodes with mildly avid hilar nodes less than 2.7 SUV), liver and spleen, system, and GI tract and symmetric muscle uptake. FDG AVID AND NON-AVID LESIONS. Reported avid SUV values (g/mL*) are maximum SUV. NECK: There are no significant neck abnormalities. CHEST: Chest wall- There are no significant chest wall abnormalities. Axilla- There are no significant axillary abnormalities. Lung parenchyma and anna: The previously noted right hilar mass shows hypermetabolic activity, with SUV max of 14.5. The large right upper lobe previously noted mass shows hypermetabolic activity, with SUV max of 16.4. Stable pulmonary emphysematous changes. Mediastinum- There are no significant hilar or mediastinal adenopathy. Pleura- There are no significant pleural abnormalities. ABDOMEN: Cholelithiasis. Tpdz-fv-jzemoolf sigmoid and descending colon diverticulosis. Stomach- No significant abnormalities. Liver- No significant abnormalities. Spleen- No significant abnormalities. Pancrease- No significant abnormalities. Kidneys- No significant abnormalities. Bowel- Normal bowel activity. Spine- No significant abnormalities. PELVIS: Bowel- Normal physiologic bowel activity is identified. Masses- There are no pelvic masses. Bones- With the use of bone window settings, there are no osteolytic or osteoblastic lesions. There are no FDG avid lesions within the visualized portion of the axial skeleton. PET/PET/CT Tumor Base -Thigh Init IMPRESSION: FDG avid- The previously identified right upper lobe mass demonstrates hypermetabolic activity, as does the right hilar nodule/mass. Both areas are concerning for the presence of malignancy. Other: Cholelithiasis. Wvqg-cl-rchlundj sigmoid and descending colon diverticulosis. Please note the low-dose CT scan was performed to facilitate PET image reconstruction and anatomic localization and does not replace a diagnostic CT. Any diagnostic CT requested and performed at the time of the PET will be reported separately. Reading Location: [place] [address] CC: VADIM Acevedo; Dr. Joann Live MD ~ Account Clerk: Signed [facility] PET/CT Tumor Base -Thigh Ini ton 02-11-2025 PET/CT Tumor Base -Thigh Init [facility] Imaging Services [address] [place] [address] PET/CT Tumor Base -Thigh Init MR#: [id number] Acct: [id number] Name: ROSARIO KAISER Rep #: [id number] : 1975 F 49 From: Wyatt Velez PCP: Dr. Joann Live MD Status: REG CLI Study: PET/CT Tumor Base -Thigh Init Date of Exam: Exam# [id number] Ordering Dr: Negin Acevedo NP [employer] REPRINTING UNIT OPERATOR-C PROCEDURE: PET/CT TUMOR BASE -THIGH INIT 02/11/2025 REASON FOR EXAM: 49 y/o F with LUNG. Squamous cell carcinoma of the right upper lobe. TECHNIQUE: Following the intravenous administration of radionucleotide, image acquisition on a dedicated PET/CT unit was performed at one hour post injection. A preliminary CT study encompassing the Skull base, neck, chest, abdomen, pelvis, and proximal thighs was performed for purposes of attenuation correction and anatomic localization. The proximal thighs were also included. The patient's blood glucose level was 95 mg/dL (allowable range: 50-180 mg/dL). RADIOPHARMACEUTICAL: 13.807 mCi 18F-FDG (Fluorodeoxyglucose F18) IV was injected into he patient. RADIATION DOSE SUMMARY: Effective Dose: Approximately 7 mSv for a standard whole-body PET scan. Organ Doses: Varies by organ, with higher doses typically to the bladder, liver, and brain. COMPARISON: COMPARISON FROM CT, PET OR OTHER PERTINENT EXAMS: Chest CT of 01/07/2025. FINDINGS: Physiologic uptake: There may be expected metabolic uptake within the brain, tongue and floor of the mouth and larynx/vocal cords, heart, anna (many normal individuals have hilar uptake in less than 3 nodes with mildly avid hilar nodes less than 2.7 SUV), liver and spleen, system, and GI tract and symmetric muscle uptake. FDG AVID AND NON-AVID LESIONS. Reported avid SUV values (g/mL*) are maximum SUV. NECK: There are no significant neck abnormalities. CHEST: Chest wall- There are no significant chest wall abnormalities. Axilla- There are no significant axillary abnormalities. Lung parenchyma and anna: The previously noted right hilar mass shows hypermetabolic activity, with SUV max of 14.5. The large right upper lobe previously noted mass shows hypermetabolic activity, with SUV max of 16.4. Stable pulmonary emphysematous changes. Mediastinum- There are no significant hilar or mediastinal adenopathy. Pleura- There are no significant pleural abnormalities. ABDOMEN: Cholelithiasis. Mfui-eo-dpzluyzx sigmoid and descending colon diverticulosis. Stomach- No significant abnormalities. Liver- No significant abnormalities. Spleen- No significant abnormalities. Pancrease- No significant abnormalities. Kidneys- No significant abnormalities. Bowel- Normal bowel activity. Spine- No significant abnormalities. PELVIS: Bowel- Normal physiologic bowel activity is identified. Masses- There are no pelvic masses. Bones- With the use of bone window settings, there are no osteolytic or osteoblastic lesions. There are no FDG avid lesions within the visualized portion of the axial skeleton. PET/PET/CT Tumor Base -Thigh Init IMPRESSION: FDG avid- The previously identified right upper lobe mass demonstrates hypermetabolic activity, as does the right hilar nodule/mass. Both areas are concerning for the presence of malignancy. Other: Cholelithiasis. Xxvo-az-cqfesjme sigmoid and descending colon diverticulosis. Please note the low-dose CT scan was performed to facilitate PET image reconstruction and anatomic localization and does not replace a diagnostic CT. Any diagnostic CT requested and performed at the time of the PET will be reported separately. Reading Location: [place] [address] CC: VADIM Acevedo; Dr. Joann iLve MD Account Clerk: Signed Normal [facility] Pulmonary Visit Reporton Pulmonary Visit Report [facility] Pulmonary Medicine of [address] [place] [address] OFFICE VISIT Date of Service: 01/30/25 MR#: [id number] Acct: [id number] Name: ROSARIO KAISER Rep #: [id number] : 1975 Provider: VADIM Acevedo Age/Sex: 49/F Location: [facility] Status: Signed Assessment and Plan Assessment and [...] Additional Comments: This note was generated with SyncSum dictation software. It may contain incorrect words, [...] you recall, she has a greater than 67-hddr-hivv smoking history quitting completely January 2024. 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 Normal [facility] 6 Minute Walk Teston 025 6 Minute Walk Test y [facility] Pulmonary Services/Neurology [address] [place] [address] MR#: [id number] Acct: [id number] Name: ROSARIO KAISER Rep #: [id number] : 1975 49 From: Brodie Low DO Referring Dr: Negin Acevedo [employer] REPRINTING UNIT OPERATOR SH[employer] SHE[employer] REPRINTING UNIT OPERATOR-C Status: REG CLI Location: PSN Date: Sex: F C PSN 6 Minute Walk Test 6 Minute Walk Test 6 Minute Walk Test: 6 Minute Walk Test PSN:6-Minute Walk Test Start: 01/23/25 08:20 Freq: Status: Active Protocol: RESP.6MINW Document 01/23/25 08:05 WLB (Rec: 01/23/25 08:24 WLB [id number]) 6 Minute Walk Test Date Performed 01/23/25 [...] Date Dictated: 01/24/25 1135 Date Transcribed: 01/24/251134 Account Clerk: Dr. Brodie Low, Signed Normal [facility] Biopsy/Inj or Needle Placeme nton 01-21-2025 Biopsy/Inj or Needle Placement [facility] Imaging Services [address] [place] [id number] Biopsy/Inj or Needle Placement MR#: [id number] Acct: [id number] Name: ROSARIO KAISER Rep #: [id number] : 1975 F 49 From: Vish oreilly MD PCP: Dr. Joann Live MD Status: [facility] Study: Biopsy/Inj or Needle Placement Date of Exam: 0 01/21/25 Exam# [id number] Ordering Dr: Negin Acevedo SH[employer] SHE[employer] REPRINTING UNIT OPERATOR SHOTGUN SHELL REPRINTING UNIT OPERATOR-C EXAM: CT-guided right lung biopsy. CLINICAL HISTORY: [...] the right apical pulmonary mass. Reading Location: [place] [address] CC: VADIM Acevedo; Dr. Joann Live MD Account Clerk: Signed Normal [facility] Chest Insp/Exp 2 Viewon 07-0 Chest Insp/Exp 2 View [facility] Imaging Services [address] [place], [place] [address] Chest Insp/Exp 2 View MR#: [id number] Acct: [id number] Name: ROSARIO KAISER Rep #: [id number] : 1975 F 49 From: Vish oreilly MD PCP: Dr. Joann Live MD Status: REG CLI Study: Chest Insp/Exp 2 View Date of Exam: 01/21/25 Exam# [id number] Ordering Dr: Vish Jennings EXAM: Chest AP [...] radiographs. The patient is asymptomatic. Reading Location: [facility] CC: Dr. Vish Jennings MD; Dr. Joann Live MD Account Clerk: Signed Normal [facility] Chest Insp/Exp 2 View [facility] Imaging Services [address] [place] [address] Chest Insp/Exp 2 View MR#: [id number] Acct: [id number] Name: ROSARIO KAISER Rep #: [id number] : 1975 F 49 From: Vish oreilly MD PCP: Dr. Joann Live MD Status: REG CLI Study: Chest Insp/Exp 2 View Date of Exam: 01/21/25 Exam# [id number] Ordering Dr: Vish Jennings EXAM: Inspiration expiration [...] post right lung biopsy radiographs. Reading Location: [facility] CC: Dr. Vish Jennings MD; Dr. Joann Live MD Account Clerk: Signed Normal [facility] Immunohistochemical Stainson 01-21-2025 Immunohistochemical Stains -------- Patient Age/Sex Location Account Attending Physician -------- ROSARIO KAISER 49/F CT [id number] VADIM Poe -------- Specimen: [id number] Received: 01/21/25 Status: JAMAAL Silva Num: [id number] Spec Type: ASP RAD Subm Dr: VADIM [...] by Dr Gustavo Hoff (thoracic pathology division, [facility]). MICROSCOPIC DESCRIPTION Slides are reviewed. All matched controls reacted appropriately. These tests were developed and their performance characteristics determined by [facility] Laboratory. They may not have been cleared [...] and is entirely submitted in 1 cassette. NV 01/21/2025 CPT:10658,45878,61952 ,08068q4 -------- Patient Age/Sex Location Account Attending Physician -------- ROSARIO KAISER 49/F CT [id number] VADIM Poe -------- Signed (signature on file) Dr. Leann Rodriguez MD 01/28/25 1507 -------- Normal [facility] Comment on above: Performed By: #### P NEELA ####[facility] [address] [place], [address] Activated partial thrombopla stin time (aPTT) in platelet poor plasma by coagulation aOrdered By: Negin Acevedo on 01-08-2025 aPTT Coag (PPP) [Time] 25.1 s 24.1-36.2 [facility] International normalized rat io (INR) calculationOrdered By: Negin Acevedo on 01-08-2025 INR Coag (Bld) [Relative time] 0.9 {INR} [facility] Partial Thromboplast Timeon 01-08-2025 aPTT Coag (Bld) [Time] 25.1 s Normal 24.1-36.2 [facility] Comment on above: Performed By: #### L 300.4310, L100.1900, L300.3900 ####[facility] [address] [place], [address] Platelet Counton 01-08-2025 Platelets (Bld) [#/Vol] 284 10*3/uL Normal 150-450 [facility] Comment on above: Performed By: #### L 300.4310, L100.1900, L300.3900 ####[facility] [address] [place], [address] Platelet countOrdered By: Jose Acevedo on 01-08-2025 Platelets (Bld) [#/Vol] 284 10*3/uL 150-450 [facility] Prothrombin Time w/INRon INR Coag (PPP) [Relative time] 0.9 {INR} Normal [facility] Comment on above: Performed By: #### L 300.4310, L100.1900, L300.3900 ####[facility] [address] [place], [address] PT Coag (PPP) [Time] 12.0 s Normal 11.7-14.9 [facility] Comment on above: Performed By: #### L 300.4310, L100.1900, L300.3900 ####[facility] [address] [place], [address] Prothrombin timeOrdered By: Negin Acevedo on 01-08-2025 PT Coag (PPP) [Time] 12.0 s 11.7-14.9 [facility] Pulmonary Visit Reporton Pulmonary Visit Report [facility] Pulmonary Medicine of [place] [address] [place] [address] OFFICE VISIT Date of Service: 01/08/25 MR#: [id number] Acct: [id number] Name: ROSARIO KAISER DANIEL Rep #: [id number] : 1975 Provider: VADIM Acevedo Age/Sex: 49/F Location: [facility].W Status: Signed with Addenda ADDENDUM by Alda [...] Additional Comments: This note was generated with SyncSum dictation software. It may contain incorrect words, [...] for any breathing problems. She has a 17-dtev-sbuq smoking history quitting completely January 2024. She smoked a minimum of a pack a day, often times a pack and half a day and admits that sometimes 2 packs/day. She is not currently on any maintenance inhalers. She has never performed a pulmonary function test. She states that back in 2013 doctor prescribed her (more content not included)... Normal [facility] Low Dose CT Lung Screeningon 01-07-[address] Lung Screening [facility] Imaging Services [address] [place] [address] Lung Screening MR#: [id number] Acct: [id number] Name: ROSARIO KAISER Rep #: [id number] : 1975 F 49 From: Queta Velez PCP: Dr. Joann Live MD Status: [facility] Study: Low Dose CT Lung Screening Date of Exam: 01/07 Exam# [id number] Ordering Dr: Chayo Black NP SH[employer] SHELL REPRINTING UNIT OPERATOR -C PROCEDURE: LOW DOSE CT LUNG SCREENING 01/07/2025 REASON FOR EXAM: LUNG CANCER SCREENING TECHNIQUE: LOW DOSE CT LUNG SCREENING Coronal and Sagittal reconstruction series were provided. One or more dose reduction techniques were used (e.g., Automated exposure control, adjustment of the mA and/or kV according to patient size, use of iterative reconstruction technique). REFERENCE LINK: [employer] Lung-RADS RADIATION DOSE SUMMARY: DLP: 59 mGycm [...] cm within the right anna. Reading Location: [facility] CC: VADIM Black; Dr. Joann Live MD Account Clerk: Signed Normal [facility] Oncology Visit Reporton 12-16 Oncology Visit Report [facility] [address] [place] [address] OFFICE VISIT Date of Service: 01/07/25 1234 MR#: [id number] Acct: [id number] Name: ROSARIO KAISER Rep #: [id number] : 1975 From: Chayo Black NP SHOTG[employer] SHELL REPRINTING UNIT OPERATOR -C Age/Sex: 49/F Location: [facility] Status: Signed HPI HPI Reviewed eligibility [...] (Updated 01/07/25 @ 12:51 by Chayo Black SHOTGUN SHELL REPRINTING UNIT OPERATOR, [employer] SHE[employer] REPRINTING UNIT OPERATOR-C) History of tobacco use Encounter for [...] cm spi (more content not included)... Normal [facility] Colonoscopy Reporton 025 Colonoscopy Report [facility] Medical Records Department [address] [place] [address] Colonoscopy Report MR#: [id number] Acct: [id number] Name: ROSARIO KAISER Rep #: [id number] : 1975 48 From: Justus Robertson MD PCP: Dr. Joann Live MD Status:REG [facility] Patient Name: Rosario Kaiser Procedure Date: 10/22/2024 [...] present medications. Procedure Code(s): --- Professional --- 20963, Colonoscopy, flexible; diagnostic, including collection of specimen(s) by brushing or washing, when performed (separate procedure) Diagnosis Code(s): --- Professional --- Z12.11, Encounter for screening for malignant neoplasm of colon K57.30, Diverticulosis of large intestine without perforation or abscess without bleeding K64.8, Other hemorrhoids CPT copyright 2021 [employer]. All rights reserved. The codes documented in this report are preliminary and upon electrolytic etcher review may be revised to meet current compliance requirements. Justus Robertson MD 10/22/2024 9:23:43 AM This report has been signed electronically. Number of Addenda: 0 Note Initiated On: 10/22/2024 8:46 AM 10/22/24 0924 Date Justus Robertson MD Cosigner Signature: Date (if indicated) CC: Dr. Joann Live MD; Dr. Justus Robertson MD Date Dictated: 10/22/24 0846 Date Transcribed: Account Clerk: ERWIN Signed [facility] MR/POSTOP.[place] 10-22-2024 MR/POSTOP.[facility] Medical Records Department [address] [place] [address] Anesthesia Postop Eval I 10/22/24 0923 MR#: [id number] Acct: [id number] Name: ROSARIO KAISER Rep #: [id number] : 1975 48 From: Dean Marshall PCP: Dr. Joann Live MD Status:[facility] Y Race: C Location: [place] [address] Anesthesia: Postop Eval I Current Vital Signs [...] Dean Shipley Signature: Date CC: Signed Normal [facility] MR/OBTGYOGD9in 10-22-2024 [facility] Medical Records Department [address] [place] [address] Anesthesia Postop Eval II 10/22/24 1229 MR#: [id number] Acct: [id number] Name: ROSARIO KAISER Rep #: [id number] : 1975 48 From: Wolfgang Roberts MD PCP: Dr. Joann Live MD Status:[facility] Y Race: C Location: EN Anesthesia [...] MD Cosigner Signature: Date CC: Signed Normal [facility] Breast imaging reportOrdered By: Valeria Mccord on 09-10-2024 Study report [facility] Imaging Services [address] [place], [place] [address] SCRN MAMM (CAD)W/SANJUANA BILAT MR#: [id number] Acct: [id number] Name: ROSARIO KAISER Rep #: [id number] : 1975 F 48 From: Hodan Mccord MD PCP: Dr. Joann Live MD Status: REG CLI Study:SCRN MAMM (CAD)W/SANJUANA BILAT Date of Exa m: 09/10/24 Exam# [id number] Ordering Dr: Endy Live MD PROCEDURE: SCRN [...] of the results by letter. Reading Location: [facility] CC: Dr. Joann Live MD ~ Account Clerk: Signed [facility] SCRN MAMM (CAD)W/SANJUANA BILATo n 09-10-2024 SCRN MAMM (CAD)W/SANJUANA BILAT [facility] Imaging Services [address] [place] [address] SCRN MAMM (CAD)W/SANJUANA BILAT MR#: [id number] Acct: [id number] Name: ROSARIO KAISER Rep #: [id number] : 1975 F 48 From: Valeria Mccord MD PCP: Dr. Joann Live MD Status: REG CLI Study: SCRN MAMM (CAD)W/SANJUANA BILAT Date of Exam: 08/18 12/08 Exam# [id number] Ordering Dr: Joann Live MD PROCEDURE: SCRN [...] of the results by letter. Reading Location: [facility] CC: Dr. Joann Live MD Account Clerk: Signed Normal [facility] Absolute lymphocyte countOrd ered By: Joann Live on 08-08-2023 Lymphocytes Auto (Unsp spec) [#/Vol] 2.96 10*3/uL 0.83-4.51 [facility] Automated lymphocyte count a s percentage of total leukocytesOrdered By: Joann Live on 08-08-2023 Lymphocytes/100 WBC Auto (Unsp spec) 39.3 % 19-41 [facility] Basophil percentageOrdered B y: Joann Live on 08-08-2023 Basophils/100 WBC (Bld) 0.4 % 0-1 [facility] Bilirubin [Mass/Vol] 0.30 mg/dL 0.20-1.00 [facility] Comment on above: For patients on eltr ombopag therapy, use of Dimension [place] TBIL is not recommended. Chloride [Moles/Vol] 110 mmol/L 98-107 [facility] Eosinophils/100 WBC (Bld) 1.3 % 0-5 [facility] Glucose [Mass/Vol] 92 mg/dL 74-106 [facility] Hemoglobin (Bld) [Mass/Vol] 13.3 g/dL 12.0-15.0 [facility] Monocytes/100 WBC (Bld) 5.8 % 0-10 [facility] Neutrophils (Bld) [#/Vol] 4.0 10*3/uL 2.0-7.7 [facility] Neutrophils/100 WBC (Bld) 52.9 % 47-70 [facility] Potassium [Moles/Vol] 3.7 mmol/L 3.5-5.1 [facility] Protein [Mass/Vol] 7.7 g/dL 6.4-8.2 [facility] Sodium [Moles/Vol] 143 mmol/L 136-145 [facility] WBC (Bld) [#/Vol] 7.5 10*3/uL 4.4-11.0 [facility] Determination of erythrocyte mean corpuscular volume (MCV)Ordered By: Joann Live on 08-08-2023 MCV (RBC) [Entitic vol] 94.8 fL 81-99 [facility] Erythrocyte distribution wid th ratioOrdered By: [facility] on 08-08-2023 Erythrocyte distribution width (RBC) [Ratio] 13.2 % 11.6-14.6 [facility] Erythrocyte distribution wid th standard deviationOrdered By: [place] Maria T on 08-08-2023 Erythrocyte distribution width (RBC) [Entitic vol] 45.8 fL 35.1-43.9 [facility] Hematocrit Auto (Bld) [Volum e fraction]Ordered By: Joann Live on 08-08-2023 Hematocrit (Bld) [Volume fraction] 41.7 % 37-47 [facility] Immature granulocytes/100 WB C Auto (Bld)Ordered By: Joann Live on 08-08-2023 Immature granulocytes/100 WBC (Bld) 0.300 % 0.0-0.9 [facility] Comment on above: IG% - Immature Granu locytes (promyelocytes, myelocytes and metamyelocytes) > 1% indicates that a LEFT SHIFT is Present. Laboratory - Chemistry and C hemistry - challengeOrdered By: Joann Live on 08-08-2023 Albumin/Globulin [Mass ratio] 1.3 {ratio} 0.9-2.4 [facility] ALP [Catalytic activity/Vol] 84 U/L 45-117 [facility] ALT [Catalytic activity/Vol] 31 U/L 13-56 [facility] CO2 [Moles/Vol] 29.0 mmol/L 21.0-32.0 [facility] Globulin (S) [Mass/Vol] 3.4 g/dL 2.2-4.2 [facility] Urea nitrogen/Creatinine [Mass ratio] 27.1 mg/mg 10-20 [facility] Laboratory - Hematology and Cell countsOrdered By: Joann Live on 08-08-2023 MCH (RBC) [Entitic mass] 30.2 pg 27.0-32.0 [facility] MCHC (RBC) [Mass/Vol] 31.9 g/dL 32-36 [facility] Nucleated RBC/100 WBC (Bld) [Ratio] 0 % 0-5 [facility] Platelets (Bld) [#/Vol] 267 10*3/uL 150-450 [facility] No Panel InformationOrdered By: Joann Live on 08-08-2023 Estimated GFR (MDRD) Amer 140 mL/min >60 [facility] Comment on above: GFR Calc Estimated GFR (MDRD) Non-Af Amer 115 mL/min >60 [facility] Comment on above: Non- GFR Calc Platelet mean volume Naeudy-Ec ker (Bld) [Entitic vol]Ordered By: Joann Live on 08-08-2023 Platelet mean volume (Bld) [Entitic vol] 10.6 fL 6.2-12.0 [facility] RBC Auto (Bld) [#/Vol]Ordere d By: Joann Live on 08-08-2023 RBC (Bld) [#/Vol] 4.40 10*6/uL 4.2-5.4 [facility] Serum or plasma calcium radha urement (mass/volume)Ordered By: Joann Live on 08-08-2023 Calcium [Mass/Vol] 9.4 mg/dL 8.5-10.1 [facility] Serum or plasma creatinine m easurement (mass/volume)Ordered By: Joann Live on 08-08-2023 Creatinine [Mass/Vol] 0.59 mg/dL 0.55-1.02 [facility] Comment on above: The validity of the calculated GFR & GFRAA in patients over 70 years has not been determined. Clinical correlation is essential. Serum or plasma thyroid stim ulating hormone (TSH) measurement (units/volume)Ordered By: Joann Live on 08-08-2023 TSH Qn 1.15 uIU/mL 0.358-3.74 [facility] Serum or plasma urea nitroge n measurement (mass/volume)Ordered By: Joann Live on 08-08-2023 Urea nitrogen [Mass/Vol] 16 mg/dL 7-18 [facility] Thin prep Papanicolaou smear with manual screeningOrdered By: Joann Live on 08-08-2023 Thin prep Papanicolaou smear with manual screening 4.3 g/dL 3.2-5.0 [facility] Thin prep Papanicolaou smear with manual screening 17 U/L 15-37 [facility] Thin prep Papanicolaou smear with manual screening 4 5-15 [facility] HERMILA DIAG W SANJUANA BILATERALon 12-06-2022 [facility] No Panel Informationon 12-06 [facility] HERMILA SCREENINGon 10-25-2022 [facility] XR Lumbar spine 3 Viewson IMPRESSION: Lumbar spine degenerative changes with L5-S1 disc space narrowing. Account Clerk: JEANNIE Transcribe Date/Time: Oct 20 2022 2:11P Dictated by : JEANA YU MD This examination was interpreted and the report reviewed and electronically signed by: JEANA YU MD on Oct 20 2022 2:15PM [facility] DIVISION OF RADIOLOGY * * *Final [...] spine are presented. FINDINGS: There are five kiq-xzl-skpsyya lumbar vertebrae. No fracture or subluxations are [...] spine are presented. FINDINGS: There are five wae-qln-vosmtim lumbar vertebrae. No fracture or subluxations are noted. L5-S1 disc space narrowing is demonstrated, with endplate sclerosis. There is mild osteophyte formation. IMPRESSION IMPRESSION: Lumbar spine degenerative changes with L5-S1 disc space narrowing. Account Clerk: PSCB Transcribe Date/Time: Oct 20 2022 2:11P Dictated by : JEANA YU MD This examination was interpreted and the report reviewed and electronically signed by: JEANA YU MD on Oct 20 2022 2:15PM EST [facility] XR Lumbar spine 3 ViewsOrder ed By: [facility]cf Provider on 10-20-2022 [facility] XR Lumbar spine 3 Viewson Radiology Study observation (narrative) [facility] PROGRESSon 02-10-2020 PROGRESS HNO ID: [id number] Author: Sherry Loco) Areli Service: ? Author [...] min Sherry Singleton APRN.ESPERANZA Normal [facility] Office Visit: [facility]:on 017 Documentation of current medications (procedure) Done Invalid Interpretation Code [facility] Work Phone: Fall risk assessment No Invalid Interpretation Code [facility] Work Phone: Vital Signs Date Time Vital Sign Value Performing Clinician Faci lity 03-03-2025 12:50-0400 Body temperature 97.1 [degF] Dr. Joann Live MD Work Phone: [facility] 03-03-2025 12:50-0400 Diastolic blood pressure 74 mm[Hg] Dr. Joann Live MD Work Phone: [facility] 03-03-2025 12:50-0400 Heart rate 65 /min Dr. Joann Live MD Work Phone: [facility] 03-03-2025 12:50-0400 Respiratory rate 16 /min Dr. Joann Live MD Work Phone: [facility] 03-03-2025 12:50-0400 SaO2% (BldA) [Mass fraction] 100 % Dr. Joann Live MD Work Phone: [facility] 03-03-2025 12:50-0400 Systolic blood pressure 112 mm[Hg] Dr. Joann Live MD Work Phone: [facility] 03-03-2025 11:15-0400 Body height 167.[address] Joann Live MD Work Phone: [facility] 03-03-2025 11:15-0400 Body mass index (BMI) [Ratio] 24.3 kg/m2 Dr. Joann Live MD Work Phone: [facility] 03-03-2025 11:15-0400 Body weight 68.[address] Joann Live MD Work Phone: [facility] 02-25-2025 09:15-0400 Body height 167.[address] Joann Live MD Work Phone: [facility] 02-25-2025 09:15-0400 Body mass index (BMI) [Ratio] 24.5 kg/m2 Dr. Joann Live MD Work Phone: [facility] 02-25-2025 09:15-0400 Body temperature 97.2 [degF] Dr. Joann Live MD Work Phone: [facility] 02-25-2025 09:15-0400 Body weight [address] Joann Live MD Work Phone: [facility] 02-25-2025 09:15-0400 Diastolic blood pressure 73 mm[Hg] Dr. Joann Live MD Work Phone: [facility] 02-25-2025 09:15-0400 Heart rate 63 /min Dr. Joann Live MD Work Phone: [facility] 02-25-2025 09:15-0400 Respiratory rate 18 /min Dr. Joann Live MD Work Phone: [facility] 02-25-2025 09:15-0400 SaO2% (BldA) [Mass fraction] 97 % Dr. Joann Live MD Work Phone: [facility] 02-25-2025 09:15-0400 Systolic blood pressure 125 mm[Hg] Dr. Joann Live MD Work Phone: [facility] 02-21-2025 09:11-0400 Body height 167.[address] Joann Live MD Work Phone: [facility] 02-21-2025 09:11-0400 Body mass index (BMI) [Ratio] 24.7 kg/m2 Dr. Joann Live MD Work Phone: [facility] 02-21-2025 09:11-0400 Body temperature 98 [degF] Dr. Joann Live MD Work Phone: [facility] 02-21-2025 09:11-0400 Body weight 69.[address] Joann Live MD Work Phone: [facility] 02-21-2025 09:11-0400 Diastolic blood pressure 86 mm[Hg] Dr. Joann Live MD Work Phone: [facility] 02-21-2025 09:11-0400 Heart rate 69 /min Dr. Joann Live MD Work Phone: [facility] 02-21-2025 09:11-0400 Respiratory rate 18 /min Dr. Joann Live MD Work Phone: [facility] 02-21-2025 09:11-0400 SaO2% (BldA) [Mass fraction] 97 % Dr. Joann Live MD Work Phone: [facility] 02-21-2025 09:11-0400 Systolic blood pressure 124 mm[Hg] Dr. Joann Live MD Work Phone: [facility] 02-17-2025 09:43-0400 Body height 167.[address] Joann Live MD Work Phone: [facility] 02-17-2025 09:43-0400 Body mass index (BMI) [Ratio] 24.7 kg/m2 Dr. Joann Live MD Work Phone: [facility] 02-17-2025 09:43-0400 Body weight 69.[address] Joann Live MD Work Phone: [facility] 02-17-2025 09:41-0400 Body temperature 98 [degF] Dr. Joann Live MD Work Phone: [facility] 02-17-2025 09:41-0400 Diastolic blood pressure 82 mm[Hg] Dr. Joann Live MD Work Phone: [facility] 02-17-2025 09:41-0400 Heart rate 80 /min Dr. Joann Live MD Work Phone: [facility] 02-17-2025 09:41-0400 Respiratory rate 18 /min Dr. Joann Live MD Work Phone: [facility] 02-17-2025 09:41-0400 SaO2% (BldA) [Mass fraction] 98 % Dr. Joann Live MD Work Phone: [facility] 02-17-2025 09:41-0400 Systolic blood pressure 122 mm[Hg] Dr. Joann Live MD Work Phone: [facility] 01-30-2025 08:47-0400 Body height 167.[address] Joann Live MD Work Phone: [facility] 01-30-2025 08:47-0400 Body mass index (BMI) [Ratio] 24.2 kg/m2 Dr. Joann Live MD Work Phone: [facility] 01-30-2025 08:47-0400 Body temperature 97.3 [degF] Dr. Joann Live MD Work Phone: [facility] 01-30-2025 08:47-0400 Body weight 68.[address] Joann Live MD Work Phone: [facility] 01-30-2025 08:47-0400 Diastolic blood pressure 86 mm[Hg] Dr. Joann Live MD Work Phone: [facility] 01-30-2025 08:47-0400 Heart rate 87 /min Dr. Joann Live MD Work Phone: [facility] 01-30-2025 08:47-0400 Respiratory rate 16 /min Dr. Joann Live MD Work Phone: [facility] 01-30-2025 08:47-0400 SaO2% (BldA) [Mass fraction] 97 % Dr. Joann Live MD Work Phone: [facility] 01-30-2025 08:47-0400 Systolic blood pressure 123 mm[Hg] Dr. Joann Live MD Work Phone: [facility] 01-23-2025 08:05-0400 Body height 167.[address] Joann Live MD Work Phone: [facility] 01-23-2025 08:05-0400 Body weight 68.[address] Joann Live MD Work Phone: [facility] 01-23-2025 08:05-0400 Heart rate 94 /min Dr. Joann Live MD Work Phone: [facility] 01-23-2025 08:05-0400 SaO2% (BldA) [Mass fraction] 96 % Dr. Joann Live MD Work Phone: [facility] 01-21-2025 11:35-0400 Diastolic blood pressure 74 mm[Hg] Dr. Joann Live MD Work Phone: [facility] 01-21-2025 11:35-0400 Heart rate 74 /min Dr. Joann Live MD Work Phone: [facility] 01-21-2025 11:35-0400 Respiratory rate 18 /min Dr. Joann Live MD Work Phone: [facility] 01-21-2025 11:35-0400 SaO2% (BldA) [Mass fraction] 98 % Dr. Joann Live MD Work Phone: [facility] 01-21-2025 11:35-0400 Systolic blood pressure 119 mm[Hg] Dr. Joann Live MD Work Phone: [facility] 01-21-2025 08:10-0400 Body mass index (BMI) [Ratio] 24.5 kg/m2 Dr. Joann Live MD Work Phone: [facility] 01-21-2025 08:10-0400 Body temperature 98.7 [degF] Dr. Joann Live MD Work Phone: [facility] 01-21-2025 08:10-0400 Body weight 68.[address] Joann Live MD Work Phone: [facility] 01-08-2025 08:00-0400 Body height 167.[address] Joann Live MD Work Phone: [facility] 01-08-2025 08:00-0400 Body mass index (BMI) [Ratio] 24.5 kg/m2 Dr. Joann Live MD Work Phone: [facility] 01-08-2025 08:00-0400 Body temperature 97.4 [degF] Dr. Joann Live MD Work Phone: [facility] 01-08-2025 08:00-0400 Body weight 68.[address] Joann Live MD Work Phone: [facility] 01-08-2025 08:00-0400 Diastolic blood pressure 85 mm[Hg] Dr. Joann Live MD Work Phone: [facility] 01-08-2025 08:00-0400 Heart rate 68 /min Dr. Joann Live MD Work Phone: [facility] 01-08-2025 08:00-0400 Respiratory rate 18 /min Dr. Joann Live MD Work Phone: [facility] 01-08-2025 08:00-0400 SaO2% (BldA) [Mass fraction] 96 % Dr. Joann Live MD Work Phone: [facility] 01-08-2025 08:00-0400 Systolic blood pressure 127 mm[Hg] Dr. Joann Live MD Work Phone: [facility] 01-07-2025 12:40-0400 Body height 167.[address] Joann Live MD Work Phone: [facility] 01-07-2025 12:40-0400 Body mass index (BMI) [Ratio] 24.5 kg/m2 Dr. Joann Live MD Work Phone: [facility] 01-07-2025 12:40-0400 Body temperature 98.6 [degF] Dr. Joann Live MD Work Phone: [facility] 01-07-2025 12:40-0400 Body weight 68.[address] Joann Live MD Work Phone: [phone] [place] [address] 01-07-2025 12:40-0400 Diastolic blood pressure 76 mm[Hg] Dr. Joann Live MD Work Phone: [facility] 01-07-2025 12:40-0400 Heart rate 86 /min Dr. Joann Live MD Work Phone: [facility] 01-07-2025 12:40-0400 Respiratory rate 18 /min Dr. Joann Live MD Work Phone: [facility] 01-07-2025 12:40-0400 SaO2% (BldA) [Mass fraction] 96 % Dr. Joann Live MD Work Phone: [facility] 01-07-2025 12:40-0400 Systolic blood pressure 112 mm[Hg] Dr. Joann Live MD Work Phone: [facility] 10-22-2024 09:35-0400 Diastolic blood pressure 69 mm[Hg] Dr. Joann Live MD Work Phone: [facility] 10-22-2024 09:35-0400 Systolic blood pressure 98 mm[Hg] Dr. Joann Live MD Work Phone: [facility] 10-22-2024 09:30-0400 Body temperature 96.9 [degF] Dr. Joann Live MD Work Phone: [facility] 10-22-2024 09:30-0400 Heart rate 74 /min Dr. Joann Live MD Work Phone: [facility] 10-22-2024 09:30-0400 Respiratory rate 16 /min Dr. Joann Live MD Work Phone: [facility] 10-22-2024 09:30-0400 SaO2% (BldA) [Mass fraction] 96 % Dr. Joann Live MD Work Phone: [facility] 10-22-2024 07:31-0400 Body height 167.[address] Joann Live MD Work Phone: [facility] 10-22-2024 07:31-0400 Body mass index (BMI) [Ratio] 23.8 kg/m2 Dr. Joann Live MD Work Phone: [facility] 10-22-2024 07:31-0400 Body weight [address] Joann Live MD Work Phone: [facility] 08-15-2024 11:47-0500 Body height 167.[address] Joann Live MD Work Phone: [facility] 08-15-2024 11:47-0500 Body mass index (BMI) [Ratio] 24.2 kg/m2 Dr. Joann iLve MD Work Phone: [facility] 08-15-2024 11:47-0500 Body weight 68.[address] Joann Live MD Work Phone: [facility] 07-08-2023 09:15-0500 Diastolic blood pressure 79 mm[Hg] [facility] 07-08-2023 09:15-0500 Heart rate 92 /min [facility] 07-08-2023 09:15-0500 Respiratory rate 16 /min [facility] 07-08-2023 09:15-0500 SaO2% (BldA) [Mass fraction] 100 % [facility] 07-08-2023 09:15-0500 Systolic blood pressure 108 mm[Hg] [facility] 07-08-2023 07:40-0500 Body height 167.64 cm [facility] 07-08-2023 07:40-0500 Body mass index (BMI) [Ratio] 23.3 kg/m2 [facility] 07-08-2023 07:40-0500 Body temperature 97.3 [degF] [facility] 07-08-2023 07:40-0500 Body weight 65.45 kg [facility] 11-15-2022 09:06-0400 Body weight 67.13 kg Kandice Older DISH MAKER.[employer]ING VALIDATION CONSULTANT Work Phone: [facility] 11-15-2022 09:06-0400 Diastolic blood pressure 76 mm[Hg] Kandice Older DISH MAKER.CLEANING VALIDATION CONSULTANT Work Phone: [facility] 11-15-2022 09:06-0400 Heart rate 86 /min Kandice Older DISH MAKER.CLEANING VALIDATION CONSULTANT Work Phone: [facility] 11-15-2022 09:06-0400 Respiratory rate 14 /min Kandice Older DISH MAKER.CLEANING VALIDATION CONSULTANT Work Phone: [facility] 11-15-2022 09:06-0400 Systolic blood pressure 112 mm[Hg] Kandice Older DISH MAKER.CLEANING VALIDATION CONSULTANT Work Phone: [facility] 10-18-2022 07:19-0400 Body temperature 97.5 [degF] Krislyn Aberegg PA Work Phone: [facility] 10-18-2022 07:19-0400 Body weight 68.13 kg Krislyn Aberegg PA Work Phone: [facility] 10-18-2022 07:19-0400 Diastolic blood pressure 78 mm[Hg] Krislyn Aberegg PA Work Phone: [facility] 10-18-2022 07:19-0400 Heart rate 83 /min Krislyn Aberegg PA Work Phone: [facility] 10-18-2022 07:19-0400 Respiratory rate 16 /min Krislyn Aberegg PA Work Phone: [facility] 10-18-2022 07:19-0400 SaO2% (BldA) [Mass fraction] 99 % Krislyn Aberegg PA Work Phone: [facility] 10-18-2022 07:19-0400 Systolic blood pressure 122 mm[Hg] Krislyn Aberegg PA Work Phone: [facility] 01-20-2017 09:01-0400 BMI (Body Mass Index) 23.5 kg/m2 Virginie Arriaga [facility] Work Phone: 01-20-2017 09:01-0400 Body Temperature 98.6 [degF] Virginie Ar[facility] Work Phone: 01-20-2017 09:01-0400 BP Diastolic 80 mm[Hg] Virginie Bart [facility] Work Phone: 01-20-2017 09:01-0400 BP Systolic 140 mm[Hg] Virginie Arriaga [facility] Work Phone: 01-20-2017 09:01-0400 Height 167.64 cm Virginie Bart [facility] Work Phone: 01-20-2017 09:01-0400 Pulse (Heart Rate) 83 /min Virginie Arriaga [facility] Work Phone: 01-20-2017 09:01-0400 Respiratory Rate 16 /min Virginie Arriaga LPN [facility] Work Phone: 01-20-2017 09:01-0400 Weight 66.04 kg Virginie Arriaga [facility] Work Phone: Encounters Encounter Date Encounter Type Care Provider Facility Start: 03-03-2025 Non-patient / Non-visit Dr. Suad Fma MD -[facility] Start: 03-03-2025 End: 03-03-2025 Admission to same day surgery center Dr. Allan Fam [facility] Start: 03-03-2025 End: 03-03-[address] Joann Live MD Work Phone: -[facility] Start: 02-28-[address] Ottoniel Cabrera MD -[facility] Work Phone: Start: 02-28-2025 ambulatory Joann Live Facility: [facility] Start: 02-25-2025 End: 02-25-[address] Allan Fam MD -[facility] Work Phone: Start: 02-25-2025 End: 02-25-[address] Joann Live MD Work Phone: -[facility] Start: 02-21-2025 End: 02-21-[address] Karthik Galan DO -[facility] Work Phone: Start: 02-21-2025 End: 02-21-[address] Joann Live MD Work Phone: -[facility] Start: 02-21-2025 ambulatory Karthik Galan Facility: [facility] Start: 02-17-2025 End: 02-17-[address] Ottoniel Cabrera MD -[facility] Work Phone: Start: 02-17-2025 End: 02-17-[address] Joann Live MD Work Phone: [facility] Start: 02-11-2025 End: 02-11-[address] Joann Live MD Work Phone: [facility] Start: 02-11-2025 End: 02-11-2025 Patient encounter procedure Negin FIERRO -[facility] Start: 02-11-2025 End: 02-11-2025 ambulatory Negin Acevedo NP Facility:[facility] Start: 01-30-2025 End: 01-30-2025 Patient encounter procedure Negin Acevedo [employer] OPERATOR-C -[facility] Work Phone: Start: 01-30-2025 End: 01-30-[address] Joann Live MD Work Phone: -[facility] Start: 01-24-2025 ambulatory [facility] Facility: [facility] Start: 01-24-2025 Non-patient / Non-visit Dr. Brodie lombardi DO -[facility] Start: 01-23-2025 End: 01-23-[address] Joann Live MD Work Phone: -Pulmonary Services/Neurology Start: 01-23-2025 End: 01-23-2025 Patient encounter procedure Negin Acevedo [employer] UNIT OPERATOR-C -[facility]urology Work Phone: Start: 01-23-2025 End: [facility] Start: 01-21-2025 End: 01-21-[address] Joann Live MD Work Phone: -Cat Scan [facility] Start: 01-21-2025 End: 01-21-2025 Patient encounter procedure Negin Acevedo [employer]ING UNIT OPERATOR-C -[facility] Work Phone: Start: 01-21-2025 End: 01-21-[facility] Start: 01-08-2025 End: 01-08-[address] Joann Live MD Work Phone: [facility] Start: 01-08-2025 End: 01-08-2025 Patient encounter procedure Negin Acevedo [employer]ING UNIT OPERATOR-C -[facility] Start: 01-08-2025 End: 01-08-2025 Patient encounter procedure Negin Acevedo [employer]ING UNIT OPERATOR-C -[facility] Work Phone: Start: 01-08-2025 End: 01-08-[address] Jaonn Live MD Work Phone: [facility] Work Phone: Start: 01-07-2025 End: 01-07-2025 Patient encounter procedure Chayo Black NP- -[facility] Work Phone: Start: 01-07-2025 End: 01-08-[address] Joann Live MD Work Phone: [facility] Work Phone: Start: 01-07-2025 End: 01-07-2025 ambulatory Chayo Black NP Facility:[facility] Start: 12-17-2024 End: 01-17-2025 ambulatory Edward Martinez MD Work Phone: [facility] Start: 10-22-2024 ambulatory Joann Live Facility: [facility] [place] Start: 10-22-2024 Non-patient / Non-visit Dr. Justus Robertson MD -[facility] Start: 10-22-2024 End: 10-22-2024 Admission to same day surgery center Dr. Justus Robertson MD -Endoscopy Work Phone: Start: 10-22-2024 End: 10-22-[address] Joann Live MD Work Phone: [facility] Work Phone: Start: 09-10-2024 End: 09-10-[address] Joann Live MD Work Phone: [facility] Work Phone: Start: 09-10-2024 End: 09-10-[address] Joann Live MD -Outpatient Breast Imaging Work Phone: Start: 09-10-2024 End: 09-10-2024 ambulatory Joann Live Facility:[facility] Start: 08-15-2024 Non-patient / Non-visit Dr. Jose Live MD Work Phone: -[facility] Work Phone: Start: 08-15-2024 ambulatory [facility] Facility:[facility] Start: 01-17-2024 ambulatory Edward sánchez MD Work Phone: Internal Medicine [facility] Start: 09-20-2023 Non-patient / Non-visit Dr. Jose Live Work Phone: [facility] Start: 09-20-2023 End: 09-20-[address] Joann Live Work Phone: [facility] Work Phone: Start: 09-20-2023 End: 09-20-[address] Joann Live Work Phone: [facility]-Pulmonary Services/Neurology Work Phone: Start: 08-28-2023 End: 08-28-2023 ambulatory [facility] Work Phone: Start: 08-28-2023 End: 08-28-2023 Patient encounter procedure [facility] Work Phone: Start: 08-08-2023 End: 08-08-2023 ambulatory [facility] Work Phone: Start: 08-08-2023 End: 08-08-2023 Patient encounter procedure [facility] Start: 07-08-2023 End: 07-08-2023 Emergency department patient visit [facility]-Emergency Department Work Phone: Start: 12-06-2022 End: 12-06-2022 Subsequent hospital visit by physician [facility] Work Phone: Radiology Comment on above: Abnormal screening m ammogram [R92.8] Start: 11-15-2022 End: 11-15-2022 Patient encounter procedure Kandice Mario APRN.CLEANING VALIDATION CONSULTANT Work Phone: Internal Medicine [place] Comment on above: Skin lesion of left leg (Primary Dx); Acute back pain with sciatica, right; Elevated liver enzymes; Special screening for malignant neoplasms, colon; Encounter for immunization Start: 11-08-2022 End: 11-08-2022 ambulatory Ton Goldaxa PT Work Phone: [facility] Comment on above: Acute back pain with sciatica, right (Primary Dx) Start: 10-31-2022 Telephone encounter Edward gutierrez MD Work Phone: Internal Medicine [place] Comment on above: mammogram orders/US Start: 10-27-2022 Telephone encounter Edward gutierrez MD Work Phone: Internal Medicine [place] Comment on above: Medication Request Start: 10-26-2022 Documentation procedure Mammog ana Coordinator [facility] Start: 10-26-2022 Letter encounter Mammography Coordinator [facility] Department Start: 10-25-2022 End: 10-25-2022 Subsequent hospital visit by physician Screen Mammo [facility] Comment on above: Screening mammogram for breast cancer [Z12.31] Start: 10-19-2022 End: 10-19-2022 Subsequent hospital visit by physician [facility] Work Phone: Radiology Comment on above: Acute bilateral low back pain with right-sided sciatica [M54.41] Start: 10-18-2022 End: 10-18-2022 Patient encounter procedure Kan MACIEL Work Phone: [facility] Comment on above: Acute midline low ba ck pain with right-sided sciatica (Primary Dx) Procedures Date Procedure Procedure Detail Performing Clinician Start: 03-03-2025 Plain chest X-ray Dr. Endy Live MD Work Phone: Start: 03-03-2025 Implantation to cardiovascular system Dr. Joann Live MD Work Phone: Start: 03-03-2025 Fluoroscopic guidance Rosie Live MD Work Phone: Start: 02-28-2025 MRI of brain with contrast Dr. Joann Live MD Work Phone: Start: 02-11-2025 Positron emission to mography with computed tomography Dr. Joann Live MD Work Phone: Start: 01-21-2025 Plain [...] t berenice with image limited Kandice Older DISH MAKER.CLEANING VALIDATION CONSULTANT Work Phone: Start: 12-06-2022 Digital breast tomos ynthesis bilateral Kandice Older DISH MAKER.CLEANING VALIDATION CONSULTANT Work Phone: Start: 10-25-2022 Lipid 1996 panel - S maxine or Plasma Us 1 Work Phone: Start: 10-25-2022 End: 10-25-2022 Mammography Edward Velez Work Phone: Start: 10-19-2022 Radex spine lumbosac ral 2/3 views Edward Martinez MD Work Phone: Start: 07-31-2019 Mammography Kan MACIEL Work Phone: Plan of Treatment Date Care Activity Detail Author Start: 11-15-2032 Urine microalbumin profile [facility] Start: 10-26-2027 Lipid 1996 panel - S maxine or Plasma Lipid Screening [facility] Start: 10-26-2027 Lipid panel Lipid Screening [facility] Start: 10-26-2027 LIPID SCREEN LIPID SCREEN [facility] Start: 10-25-2025 DIABETES SCREEN [facility] Start: 10-25-2025 Diabetes Screening Diabetes Screenin g [facility] Start: 03-17-2025 Influenza vaccination Influenz a Vaccine (Season Ended) [facility] Start: 03-03-2025 Patient discharge [facility] Start: 03-03-2025 ambulatory Ambulatory Facility:[facility] Start: 01-24-2025 Continuous pulse oximetry [facility] Start: 01-23-2025 Walking distance 6 minutes [facility] Start: 01-21-2025 CORE NDL BX LNG/MED PERQ CORE NDL BX LNG/MED PERQ [facility] Start: 01-21-2025 Following clinical pathway protocol [facility] Start: 01-21-2025 Catheterization of vein [facility] Start: 01-21-2025 Oxygen therapy [facility] Start: 01-21-2025 Patient discharge [facility] Start: 01-21-2025 Vital signs measurements [facility] Start: 01-21-2025 Measurement of respiratory function [facility] Start: 2024 Shingrix Vaccine (1 of 2) Campbell grix Vaccine (1 of 2) [facility] Start: 10-22-2024 Colonoscopy flx dx w/collj spec when pfrmd DIAGNOSTIC COLONOSCOPY [facility] Start: 10-22-2024 Patient discharge [facility] Start: 03-17-2024 Covid-19 Vaccine ( season) Covid-19 Vaccine ( season) [facility] Start: 03-17-2024 Influenza vaccination Influenza Vacc ine (#1) [facility] Start: 12-07-2023 Mammography Mammogram Screening [facility] Start: 12-07-2023 Screening for malign ant neoplasm of breast Mammogram Screening [facility] Start: 10-26-2023 Mammography MAMMOGRAM [facility] Start: 10-20-2023 COVID-19 VACCINE (3 - Booster for Pfizer series) COVID-19 VACCINE (3 - Booster for Pfizer series) [facility] Comment on above: Postponed from 01/16 (Declined at this time) Start: 07-17-2023 Behavioral Health Screening Behavioral Health Screening [facility] Start: 07-08-2023 [facility] Start: 07-08-2023 Radiography of thora cic spine Thoracic Spine 3 Views [facility] Start: 07-08-2023 X-ray of cervical spine Cerv Spine 2 or 3 Views [facility] Start: 07-08-2023 XR Cervical spine 2 or 3 Views [facility] Start: 07-08-2023 XR Thoracic spine 3 Views [facility] Start: 05-18-2023 End: 07-18-2023 Comprehensive metabolic 2000 panel - Serum or Plasma COMP METABOLIC PANEL Lab Routine Elevated liver enzymes Expected: 05/18/2023 (Approximate), Expires: 07/18/2023 [facility] Work Phone: Comment on above: Expected: 05/18/2023 (Approximate), Expires: 07/18/2023 Start: 03-17-2023 Covid-19 Vaccine ( season) Covid-19 Vaccine ( season) [facility] Start: 03-17-2023 Influenza vaccination [facility] Start: 07-17-2022 DEPRESSION ASSESSMENT DEPRESSION ASS ESSMENT [facility] Start: 01-29-2021 LIPID SCREEN LIPID SCREEN [facility] Start: 01-16-2021 COVID-19 VACCINE (3 - Booster for Pfizer series) COVID-19 VACCINE (3 - Booster for Pfizer series) [facility] Start: 07-31-2020 Mammography MAMMOGRAM [facility] Start: 11-27-2019 COLOGUARD (FIT-DNA) COLOGUARD (FIT-D NA) [facility] Start: 11-27-2019 Colonoscopy COLONOSCOPY [facility] Start: 11-27-2019 COLORECTAL CANCER SCREENING COLORECTAL CANCER SCREENING [facility] Start: 11-27-[address] COLONOGRAPHY [facility] Start: 11-27-2019 DIABETES SCREEN DIABETES SCREEN [facility] Start: 11-27-2019 FECAL OCCULT BLOOD FECAL OCCULT BLOO D [facility] Start: 11-27-2019 Screening for malign ant neoplasm of colon [facility] Start: 11-27-2019 SIGMOIDOSCOPY SIGMOIDOSCOPY [facility] Start: 01-20-2017 End: 01-20-2017 Appointment Appointment [facility] Work Phone: Start: 12-30-2016 PNEUMOCOCCAL (2 - PCV) PNEUMOCOCCAL (2 - PCV) [facility] Start: 1993 Hepatitis B Vaccine (1 of 3 - 19+ 3-dose series) Hepatitis B Vaccine (1 of 3 - 19+ 3-dose series) [facility] Start: 1993 Urine microalbumin profile DTAP,TDAP,TD (1 - Tdap) [facility] Start: 1992 Anxiety Screening Anxiety Screening [facility] Start: 1992 Depression Screening Depression Scre ening [facility] Start: 1992 HEPATITIS C SCREENING HEPATITIS C SC REENING [facility] Start: 1992 HIV SCREENING HIV SCREENING [facility] Start: 1974 HEPATITIS B (1 of 3 - 3-dose series) HEPATITIS B (1 of 3 - 3-dose series) [facility] Start: 1974 Hepatitis B Vaccine (1 of 3 - 3-dose series) Hepatitis B Vaccine (1 of 3 - 3-dose series) [facility] [id number] measurement [facility] Colonoscopy [facility] Continuous pulse oximetry [facility] CT Chest [facility] End: 02-15-2025 DBT Breast - bilateral screening HERMILA SCREENING W [facility] Radiology Routine Encounter for screening mammogram for breast cancer 1 Occurrences starting 01/17/2024 until 02/15/2025 [facility] Work Phone: Comment on above: 1 Occurrences starti ng 01/17/2024 until 02/15/2025 End: 01-16-2026 DBT Breast - bilateral screening HERMILA SCREENING W SANJUANA Radiology Routine Encounter for screening mammogram for breast cancer 1 Occurrences starting 12/17/2024 until 01/16/2026 [facility] Work Phone: Comment on above: 1 Occurrences starti ng 12/17/2024 until 01/16/2026 End: 11-30-2023 HERMILA DIAGNOSTIC BILATERAL HERMILA DIAGNOSTIC BILATERAL Radiology Routine Abnormal screening mammogram 1 Occurrences starting 10/31/2022 until 11/30/2023 [facility] Work Phone: Comment on above: 1 Occurrences starti ng 10/31/2022 until 11/30/2023 MR Brain WO and W contrast IV [facility] Partial thromboplast in time, activated [facility] Patient Education [facility] Work Phone: Patient referral [facility] Work Phone: Platelets [#/volume] in Blood [facility] Positron emission tomography with computed tomography [facility] Prothrombin time [facility] End: 11-16-2023 Screening colonoscopy COLONOSCOPY SCREENING Endoscopy Routine Special screening for malignant neoplasms, colon 1 Occurrences starting 11/15/2022 until 11/16/2023 [facility] Work Phone: Comment on above: 1 Occurrences starti ng 11/15/2022 until 11/16/2023 End: 11-30-2023 US BREAST LTD LEFT US BREAST LTD LEFT Radiology Routine Abnormal screening mammogram 1 Occurrences starting 10/31/2022 until 11/30/2023 [facility] Work Phone: Comment on above: 1 Occurrences starti ng 10/31/2022 until 11/30/2023 End: 11-30-2023 US BREAST LTD RIGHT US BREAST LTD RIGHT Radiology Routine Abnormal screening mammogram 1 Occurrences starting 10/31/2022 until 11/30/2023 [facility] Work Phone: Comment on above: 1 Occurrences starti ng 10/31/2022 until 11/30/2023 Walking distance 6 minutes [facility] Work Phone: [facility] Immunizations Immunization Date Immunization Notes Care Provider Jamil acevedo 11-15-2022 pneumococcal (PCV20) vaccine, 20 valent (PREVNAR 20) Kandice Older DISH MAKER.CLEANING VALIDATION CONSULTANT Work Phone: [facility] 11-15-2022 tetanus toxoid, redu juan diphtheria toxoid, and acellular pertussis vaccine, adsorbed Kandice Older DISH MAKER.CLEANING VALIDATION CONSULTANT Work Phone: [facility] 11-15-2022 pneumococcal Conjuga te, unspecified formulation Kandice Older DISH MAKER.CLEANING VALIDATION CONSULTANT Work Phone: [facility] Work Phone: 11-21-2020 COVID-19 original vaccine, age 12+ yr, monovalent (PFIZER-BIONTECH - PURPLE TOP) Kandice Older DISH MAKER.CLEANING VALIDATION CONSULTANT Work Phone: [facility] 10-31-2020 COVID-19 original vaccine, age 12+ yr, monovalent (PFIZER-BIONTECH - PURPLE TOP) Kandice Older DISH MAKER.[facility] Work Phone: [facility] 06-23-2016 influenza, injectabl e, quadrivalent, contains preservative Kan MACIEL Work Phone: [facility] 06-23-2016 influenza virus vacc ine, unspecified formulation [facility] Work Phone: [facility] 12-31-2015 pneumococcal polysaccharide vaccine, 23 valent Kan MACIEL Work Phone: [facility] Payers Date Payer Category Payer Medicaid [id number] 2024 Self-pay 2024 Unknown [id number] 2022 Private Health Insurance [facility] [id number] 2022 Unknown [id number] [address] [facility] [id number] 2015 [facility] [id number] Self-pay S[employer] INSURANCE [id number] Unknown [id number] 2.16.840.1.095338.3.579.2. 462 Unknown [id number] 2.16.840.1.659338.3.579.2. 462 Unknown [id number] 2.16.840.1.935562.3.579.2. 462 Unknown [id number] 2.16.840.1.648620.3.579.2. 462 Unknown [id number] 2.16.840.1.638418.3.579.2. 462 Unknown [id number] 2.16.840.1.243558.3.579.2. 462 Unknown [id number] 2.16.840.1.058779.3.579.2. 462 Unknown [id number] 2.16.840.1.320697.3.579.2. 462 Unknown [id number] 2.16.840.1.225958.3.579.2. 462 Unknown [id number] 2.16.840.1.907435.3.579.2. 462 Unknown [id number] 2.16.840.1.436886.3.579.2. 462 Unknown [id number] 2.16.840.1.357105.3.579.2. 462 Unknown [id number] 2.16.840.1.996971.3.579.2. 462 Unknown [id number] 2.16.840.1.318548.3.579.2. 462 Unknown [id number] 2.16.840.1.378073.3.579.2. 462 Unknown [id number] 2.16.840.1.186488.3.579.2. 462 Unknown [id number] 2.16.840.1.233100.3.579.2. 462 Unknown [id number] 2.16.840.1.813891.3.579.2. 462 Unknown [id number] 2.16.840.1.137070.3.579.2. 462 Unknown [id number] 2.16.840.1.271392.3.579.2. 462 Unknown [id number] 2.16.840.1.358315.3.579.2. 462 Unknown [id number] 2.16840.1.599382.3.579.2. 462 Social History Date Type Detail Facility Start: 10-18-2022 End: 02-21-2025 Tobacco smoking status NHIS Smokes tobacco daily [facility] Start: 07-17-1987 History of tobacco use Cigarette Smo ker [facility] Start: 10-18-2022 End: 11-28-2022 Cigarettes smoked current (pack per day) - Reported 1 [facility] Start: 10-18-2022 Tobacco use and exposure Smoke less tobacco non-user [facility] Start: 10-18-2022 Alcohol intake Current drinke r of alcohol (finding) [facility] Start: 10-18-2022 History SDOH Alcohol Frequency 5 [facility] Start: 10-18-2022 History SDOH Alcohol Std Drinks 2 [facility] Start: 10-18-2022 History SDOH Alcohol Binge 1 [facility] Start: 10-18-2022 History SDOH Physica l Activity DPW 7 [facility] Start: 10-18-2022 History SDOH Stress 3 [facility] Start: 01-27-2016 Alcohol Comment before bed [facility] Start: 1975 Sex Assigned At Not on file [facility] Start: 10-19-2022 End: 11-15-2022 Alcohol intake Ex-drinker (finding) [facility] Start: 10-18-2022 End: 11-28-2022 Social connection and isolation panel [facility] Do you belong to any clubs or organizations such as samaritan groups, unions, fraternal or athletic groups, or school groups? No [facility] Are you now , , , , never or living with a partner? [facility] How often to you hav e a drink containing alcohol? 4 or more times a week [facility] How many standard dr inks containing alcohol do you have on a typical day? 3 or 4 [facility] How often do you hav e 6 or more drinks on 1 occasion? Never [facility] How hard is it for y ou to pay for the very basics like food, housing, medical care, and heating Somewhat hard [facility] Adult Depression Screening Assessment 0 [facility] Work Phone: Do you feel stress - tense, restless, nervous, or anxious, or unable to sleep at night because your mind is troubled all the time - these days [OSQ] To some extent [facility] (I/We) worried whebrian er (my/our) food would run out before (I/we) got money to buy more. Sometimes true [facility] The food that (I/we) bought just didn't last, and (I/we) didn't have money to get more. Never true [facility] Start: 07-08-2023 End: 07-08-2023 Tobacco smoking status NHIS Unknown if ever smoked [facility] Start: 1975 Sex Assigned At Female [facility] Start: 09-24-2024 End: 10-22-2024 Sex Female (finding) [facility] Start: 10-22-2024 Vapor Vapor [place] [facility] Start: 01-07-2025 End: 02-17-2025 Tobacco smoking status NHIS Ex-smoker (finding) [facility] NEGATED: Highlighted row Not [facility] Goals Date Patient Goal Desired Activity /State Mental Status Date Assessment Result Facility 03-03-2025 Cognitive function Voice/Name [facility] Work Phone: 01-21-2025 Cognitive function Awake;Alert;Appropriat e [facility] Work Phone: 10-22-2024 Cognitive function Voice/Name [facility] Work Phone: Clinical Notes 06-23-2016 to 03-03-2025 Note Date & Type Note Facility 03-03-2025 Radiology Diagnostic study note [facility] Imaging Services [address] [place] [address] CXR for Line Placement MR#: [id number] Acct: [id number] Name: ROSARIO KAISER Rep #: [id number] : 1975 F 49 From: Sarabjit Jennings MD PCP: Dr. Joann Live MD Status: [facility] Study:CXR for Line Placement Date of Exam: 03/03/25 Exam# [id number] Ordering Dr: Allan Meza MD PROCEDURE: CXR FOR LINE PLACEMENT 03/03/2025 REASON FOR EXAM: LINE PLACEMENT TECHNIQUE: CXR FOR LINE PLACEMENT COMPARISON: Prior study dated January 21, 2025. FINDINGS: The tip of the left-sided port a catheter is at the junction of the superior vena cava and right atrium. Right medial apical mass. No evidence of pneumothorax. RAD/CXR for Line Placement IMPRESSION: The tip of the left-sided port a catheter is at the junction of the superior vena cava and right atrium. Reading Location: [id number] CC: Dr. Allan Fam MD; Dr. Joann Live MD ~ Account Clerk: Signed [facility] 03-03-2025 Consult note [facility] 03-03-2025 Discharge summary [facility] 03-03-2025 Procedure note [facility] 03-03-2025 History and physi shahab note [facility] 03-03-2025 Consult note [facility] 01-24-2025 Procedure note [facility] 01-21-2025 Radiology Diagnostic study note [facility] Imaging Services [address] [place], [place] [address] Chest Insp/Exp 2 View MR#: [id number] Acct: [id number] Name: ROSARIO KAISER Rep #: [id number] : 1975 F 49 From: Sarabjit Jennings MD PCP: Dr. Joann Live MD Status: REG CLI Study:Chest Insp/Exp 2 View Date of Exam: 01/21/25 Exam# [id number] Ordering Dr: Vish Noguera i, MD EXAM: [...] radiographs. The patient is asymptomatic. Reading Location: [place] [address] CC: Dr. Vish Jennings MD; Dr. Joann Live MD ~ Account Clerk: Signed [facility] 01-21-2025 Radiology Diagnostic study note [facility] Imaging Services [address] [place] [address] Biopsy/Inj or Needle Placement MR#: [id number] Acct: [id number] Name: ROSARIO KAISER Rep #: [id number] : 1975 F 49 From: Sarabjit Jennings MD PCP: Dr. Joann Live MD Status: REG CLI Study:Biopsy/Inj or Needle Placement Date of Exam: 01/21/25 Exam# [id number] Ordering Dr: Kiko Acevedo NP SHOTGUN SHELL REPRINTING UNIT OPERATOR-C EXAM: CT-guided right lung biopsy. CLINICAL HISTORY: [...] the right apical pulmonary mass. Reading Location: [place] [address] CC: SHOTGUN SHELL REPRINTING UNIT OPERATORJeanette Acevedo; Dr. Joann Live MD ~ Account Clerk: Signed [facility] 01-21-2025 Radiology Diagnostic study note [facility] Imaging Services [address] [place], [place] [id number] Chest Insp/Exp 2 View MR#: [id number] Acct: [id number] Name: ROSARIO KAISER Rep #: [id number] : 1975 F 49 From: Sarabjit Jennings MD PCP: Dr. Joann Live MD Status: REG CLI Study:Chest Insp/Exp 2 View Date of Exam: 01/21/25 Exam# [id number] Ordering Dr: Vish Noguera i, MD EXAM: [...] post right lung biopsy radiographs. Reading Location: [place] [address] CC: Dr. Vish Jennings MD; Dr. Joann Live MD ~ Account Clerk: Signed [facility] 01-08-2025 Progress note [facility] 01-08-2025 Progress note Note Date/Time January 08, 2025 1:45pm [facility] Pulmonary Medicine of [address] [place] [address] OFFICE VISIT Date of Service: 01/08/25 MR#: [id number] Acct: [id number] Name: ROSARIO KAISER Rep #: [id number] : 1975 Provider: VADIM Acevedo Age/Sex: 49/F Location: [facility] Status: Signed Assessment and Plan Assessment and [...] Additional Comments: This note was generated with Premonixation software. It may contain incorrectwords, spelling, and [...] for any breathing problems. She has a 17-lpwi-wltd smoking history quitting completely January 2024. 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 She denies any [...] air Intake Visit Reasons: LDCT- CC Patient Blasting Clay Miner Required: No DME Vendor: N/a Accompanied by: [...] (Reviewed 01/08/25 @ 12:59 by Negin Acevedo SHOTGUN SHELL REPRINTING UNIT OPERATOR, SHOTGUN SHELL REPRINTING UNIT OPERATOR-C) History of tobacco use Encounter for screening for malignant neoplasm of lung Wears glasses Wears dentures Alcohol use Arthritis Injury of back Injury of head and neck Restless legs PONV (postoperative nausea and vomiting) Smoker Shortness of breath on exertion Leg cramps History of atrial fibrillation Lumbar disc herniation Surgical History (Reviewed 01/08/25 @ 12:59 by Negin Acevedo SHOTGUN SHELL REPRINTING UNIT OPERATOR, SHOTGUN SHELL REPRINTING UNIT OPERATOR-C) History of tubal ligation History of lumpectomy [...] fallen in the past year?: No 01/08/25 5905 <Electronically signed by Negin moreno NP SHOTGUN SHELL REPRINTING UNIT OPERATOR-C> Date _ Neign Acevedo NP SHOTGUN SHELL REPRINTING UNIT OPERATOR-C Cosigner Signature: Date (if applicable) CC: SHOTGUN SHELL REPRINTING UNIT OPERATOR-C Chayo Black; Dr. Joann Live MD ~ [facility] Work Phone: 1(658) 193-786406-24-2025 Radiology Diagnostic study note [facility] Imaging Services [address] [place], [place] [address] Low Dose CT Lung Screening MR#: [id number] Acct: [id number] Name: ROSARIO KAISER Rep #: [id number] : 1975 F 49 From: Ruby Martin MD PCP: Dr. Joann Live MD Status: [facility] CLI Study:Low Dose CT Lung Screening Date of Exam : 01/07/25 Exam# [id number] Ordering Dr: Chayo Marquez NP PROCEDURE: LOW DOSE CT LUNG SCREENING 01/07/2025 REASON FOR EXAM: LUNG CANCER SCREENING TECHNIQUE: LOW DOSE CT LUNG SCREENING Coronal and Sagittal reconstruction series were provided. One or more dose reduction techniques were used (e.g., Automated exposure control, adjustment of the mA and/or kV according to patient size, use of iterative reconstruction technique). REFERENCE LINK: [employer] Lung-RADS RADIATION DOSE SUMMARY: DLP: 59 mGycm [...] cm within the right anna. Reading Location: [id number] CC: VADIM Black; Dr. 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 acute Jan 9:11am Headache acute February 17 9:06am 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 acute February 17, 2025 9:06am 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 acute Feb 9:06am [facility] Work Phone: [phone] Evaluation note* Diagnosis Onset Date Resolution Status Admit Date Encounter for screening for malignant neoplasm of lung acute January 07, 2025 12:06pm History of tobacco use acute 2024 12:06pm Hypoxia acute January 08 12:35pm Mass of upper lobe of right lung acu te January 08, 2025 12:35pm Morning headache acute December 12:35pm Shortness of breath acute January 08, 2025 12:35pm Shortness of breath acute January 30, 2025 9:11am 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 acute Jan 9:11am Headache acute February 17 9:06am 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 acute February 17, 2025 9:06am 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 acute Feb 9:06am 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 acute Feb 8:50am [facility] Work Phone: [phone]) 712-157106-24-2025 Evaluation note* Diagnosis Onset Date Resolution Status Admit Date Encounter for screening for malignant neoplasm of lung acute January 07, 2025 12:06pm History of tobacco use acute 2024 12:06pm Hypoxia acute January 08 12:35pm Mass of upper lobe of right lung acu te January 08, 2025 12:35pm Morning headache acute December 12:35pm Shortness of breath acute January 08, 2025 12:35pm Shortness of breath acute January 30, 2025 9:11am 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 acute Jan 9:11am Headache acute February 17 9:06am 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 acute February 17, 2025 9:06am 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 acute Feb 9:06am 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 acute Feb 8:50am Encounter for insertion of venous access port acute February 25, 2025 9:05am 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 acute February 25, 2025 9:05am [facility] Work Phone: 1([phone] 256-580906-03-2025 NotePatient Outreach (INTMWS) ROSARIO KAISER ([id number]) 1975 F Date Time Provider Department 12/17/24 EDWARD MARTINEZ During your visit today, we recorded the following information about you: Allergies As of Date: 12/17/2024 (No Known Allergies) Date Reviewed: 11/28/2022 Reviewed by: Kelly Beauchamp LPN - Fully Assessed Visit Diagnosis:Encounter for screening mammogram for breast cancer [Z12.31] Order(s):HERMILA SCREENING W SANJUANA [1943710] Order #: [id number] FUTURE Prescriptions as of 01/17/2025 - Ibuprofen [...] liver enzymes [R74.8] 11/15/2022 Encounter Status:Closed by LUISA VELASQUEZ on 01/17/25[facility] 10-22-2024 Consult note [facility] Medical Records Department [address] [place] [address] Anesthesia Postop Eval I 10/22/24 0923 MR#: [id number] Acct: [id number] Name: ROSARIO KAISER Rep #:[id number] : 1975 48 From: Dean Marshall PCP: Dr. Joann Live MD Status:REG SDC Y Race: C Location: [place] [address] Anesthesia: Postop Eval I Current Vital Signs [...] Yes 10/22/24 0924 > Date _ Dean Shipley Signature: Date CC: ~ Signed [facility]04-08-2025 Procedure note [facility] Medical Records Department [address] [place] [address] Colonoscopy Report MR#: [id number] Acct: [id number] Name: ROSARIO KAISER Rep #:[id number] : 1975 48 From: Justus Robertson MD PCP: Dr. Joann Live MD Status:[facility] Patient Name: Rosario Kaiser Procedure Date: 10/22/2024 [...] present medications. Procedure Code(s): --- Professional --- 45148, Colonoscopy, flexible; diagnostic, including collection of specimen(s) by brushing or washing, when performed (separate procedure) Diagnosis Code(s): --- Professional --- Z12.11, Encounter for screening for malignant neoplasm of colon K57.30, Diverticulosis of large intestine without perforation or abscess without bleeding K64.8, Other hemorrhoids CPT copyright 2021 [employer]. All rights reserved. The codes documented in this report are preliminary and upon electrolytic etcher review may be revised to meet current compliance requirements. Justus Robertson MD 10/22/2024 9:23:43 AM This report has been signed electronically. Number of Addenda: 0 Note Initiated On: 10/22/2024 8:46 AM 10/22/24 0924 Date _ Justus Robertson MD Cosigner Signature: Date (if indicated) CC: Dr. Joann Live MD; Dr. Justus Robertson MD ~ Date Dictated: 10/22/24845 Date Transcribed: Account Clerk: SW Signed [facility]04-08-2025 Procedure note [facility] Medical Records Department [address] [place] [address] Operative Report - CC Letter MR#: [id number] Acct: [id number] Name: ROSARIO KAISER Rep #:[id number] : 1975 48 From: Justus Robertson MD PCP: Dr. Joann Live MD Status:[facility] 10/22/2024 Joann Live [address] [address] Re : Colonoscopy procedure for Rosario Kaiser [...] Dr. Justus Robertson MD ~ Date Dictated: 10/22/2446 Date Transcribed: Account Clerk: ERWIN Paige [facility]04-08-2025 Evaluation note* Diagnosis Onset Date Resolution Status Admit Date Encounter for screening for malignant neoplasm of colon acute Apri l 2024 7:08am [facility] Work Phone: [phone] 545-321404-08-2025 Evaluation note* Diagnosis Onset Date Resolution Status Admit Date Encounter for screening for malignant neoplasm of colon acute Apri l 2024 7:08am Encounter for screening for malignant neoplasm of lung acute January 07, 2025 12:06pm History of tobacco use acute Ju ne 2024 12:06pm [facility] [employer] Work Phone: [phone]) 173-375204-08-2025 Evaluation note* Diagnosis Onset Date Resolution Status [...] of breath acute January 08, 2025 12:35pm [facility] [employer] Work Phone: [phone] 321-545404-08-2025 Evaluation note* Diagnosis Onset Date Resolution Status [...] in right upper lobe acute Jan 9:11am [facility] Work Phone: [phone]) 383-455604-08-2025 Evaluation note* Diagnosis Onset Date Resolution Status [...] in right upper lobe acute Jan 9:11am Headache acute February 17 9:06am Metastasis to lymph nodes acute February 17, 2025 9:06am 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 acute Feb 9:06am [facility] Work Phone: [phone] Evaluation note* Diagnosis Onset Date Resolution Status Admit Date Encounter for screening for malignant neoplasm of colon acute Apri l 2024 7:08am Encounter for screening for malignant neoplasm of lung acute January 07, 2025 12:06pm History of tobacco use acute 2024 12:06pm Hypoxia acute January 08 12:35pm Mass of upper lobe of right lung acu te January 08, 2025 12:35pm Morning headache acute December 12:35pm Shortness of breath acute January 08, 2025 12:35pm Shortness of breath acute January 30, 2025 9:11am 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 Joann Live MD Status:[facility] Location: [place] [address] HPI - General General Date of Admission: 10/22/24 Date of Service: 10/22/24 Chief Complaint: Colonoscopy HPI Narrative ROSARIO KAISER, is a 48 F who presents today for screening colonoscopy. She has had no previous colonoscopy. No GI issues or symptoms. No family history of colon polyps or colon cancers [facility] Medical History Wears glasses Wears dentures Alcohol [...] begin momentarily. Charges/Coding Visit Charges Inpatient E&M: 67426 Init Hosp L1 10/22/24 0843 Cosigner Signature (if applicable): CC: Dr. Joann Live MD; Dr. Justus Robertson MD~ Signed [facility]04-08-2025 [facility] Medical Records Department [address] [place] [address] History Physical Exam 10/22/24 0841 MR#: [id number] Acct: [id number] Name: ROSARIO KAISER Rep #: [id number] : 1975 48 From: Justus Robertson MD PCP: Dr. Joann Live MD Status:[facility] Location: [place] [address] HPI - General General Date of Admission: 10/22/24 Date of Service: 10/22/24 Chief Complaint: Colonoscopy HPI Narrative ROSARIO KAISER, is a 48 F who presents today for screening colonoscopy. She has had no previous colonoscopy. No GI issues or symptoms. No family history of colon polyps or colon cancers [facility] Medical History Wears glasses Wears dentures Alcohol [...] momentarily. Charges/Coding Visit Charges Inpatient E M: 55173 Init Hosp L1 10/22/24 0843 Cosigner Signature (if applicable): CC: Dr. Joann Live MD; Dr. Justus Robertson MD [facility]04-08-2025 Consult note [facility] Medical Records Department [address] [place] [address] Pre-Anesthesia Evaluation 10/22/24 0800 MR#: [id number] Acct: [id number] Name: ROSARIO KAISER Rep #:[id number] : 1975 48 From: Wolfgang Roberts MD PCP: Dr. 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 - burr machine operator Hx Hospitalization No 10/17/24 15:20 Any Problems [...] sips of water?: No PONV PONV - burr machine operator: PONV - burr machine operator Female Yes 10/17/24 15:20 HX of Motion [...] 10/22/24 07:31 Respiratory Assessment Respiratory Assessment - burr machine operator: Respiratory Tract Infection Hx - burr machine operator Hx Respiratory Tract Infection No 10/17/24 15:20 STOP Sleep Apnea STOP Sleep Apnea - burr machine operator: STOP Sleep Apnea - burr machine operator Hx Hypertension No 10/17/24 15:20 Hx Sleep [...] Tobacco Use History Tobacco Use History - burr machine operator: Tobacco Use History - burr machine operator Tobacco Use Smoking Status Current every day smoker 10/17/24 15:20 Hx Tobacco Use Yes: vapes 10/17/24 15:20 Years Smoking Packs Smoked per Day Smoking Cessation Date was within the last 15 years Hx Smoking Cessation Date Hx Smoking Cessation No 10/17/24 15:20 Counseling Any additional information?: Yes Tobacco Use: Vapor (Patient did vape today.) Hematologic Medial History Hematologic Hx - burr machine operator: Hematologic Medical Hx - clinical documentation specialist Hx of Blood Transfusion No 10/17/24 15:20 [...] confused, unrespo /Reproduction History /Reproductive History - burr machine operator: /Reproductive Hx- burr machine operator Hx Now No 10/17/24 15:20 Gestational Age (in weeks): EDC: Hx Hx Para Hx Section SAB No 10/17/24 15:20 [facility] Medical History Wears glasses Wears dentures Alcohol [...] lambert FRANCOIS> Date _ Wolfgang Roberts [facility] Signature: Date CC: ~ Signed [facility]03-06-2024 Procedure [facility] 12-06-2022 History of Present illness Narrative* [...] 06, 2022 9:20 AM [facility] History of Present illness Narrative* [...] 06, 2022 7:51 AM documented in this encounterAden[facility]05-02-2023 Instructions* Patient Instructions* Kandice Mario APRN.CLEANING VALIDATION CONSULTANT - 11/15/2022 9:33 AM EDT Health Information [...] until the day before your colonoscopy. Designated Machine Fitter on the Day of Your Exam A responsible family member or friend MUST come with you to your colonoscopy and REMAIN in the endoscopy area until you are discharged! You are NOT ALLOWED to drive, take a taxi or bus, or leave the Endoscopy Center ALONE. If you do not have a responsible milk driver (family member or friend) with you [...] carbonated beverages such as elana sang or lemon-southern ute soda; Gatorade or other sports drinks (not red); Mario Alberot-Aid or other flavored drinks (not red). You [...] calling after 5:00 PM, please call Nurse transitional care nurse at [phone]. [facility] [address] [place] [address] Index # 31194 Revised 08/2016 3 Colonoscopy Procedure Overview Please [...] If the nausea persists, please contact nurse studio operations manager at [phone]. You may experience skin irritation around the [...] performed your exam. 6 Revised 08/2016 Copyright 6717-6358 [facility]. All rights reserved. Revised 08/2016 documented in [facility] encounterA[facility]05-[facility]-2023 History of Present illness Narrative* Kandice Mario APRN.CNP - 11/15/2022 9:26 AM EDT Images from [...] Patient agreeable to treatment plan. Kandice Mario, DISH MAKER.CLEANING VALIDATION CONSULTANT [facility] OPEN ACCESS QUESTIONNAIRE 1. Are you [...] Please send all open access questionnaires to [facility] Pool #[id number] documented in this encounterAdena [facility]04-25-2023 History of Present illness Narrative* [...] [address] Ton Conde PT documented in this encounterAdena [facility]04-24-2023 Miscellaneous Notes* Telephone Encounter - [...] the apts. Pt requesting to stay in [place] because of transportation. Roya Cordon LPN documented in this encounterAden[facility]04-13-2023 Miscellaneous Notes* Telephone Encounter - [...] back pain. Please call patient with update. [phone] Thank you. documented in this encounterAdena [facility]04-12-2023 Miscellaneous Notes* Letter - Mammography Coordinator - 10/26/2022 8:04 AM EDT October 26, 2022 PID: [id number] Rosario Kaiser [address] [place] [address] Dear Ms. Kaiser, Your recent breast imaging exam on 10/25/2022 showed a possible finding that requires additional imaging studies for a complete evaluation. Most such findings are probably benign (not cancer). If you have a healthcare provider who ordered/prescribed your screening mammogram: Please call [phone] or [phone] to schedule an appointment for your additional [...] and reports are kept on file at [facility] as part of your permanent medical record, and are available for your continuing care. Thank you for allowing us to help in meeting your health care needs. Sincerely, Dr. Sandoval Interpreting Radiologist [facility] (Additional imaging) documented in this encounterAdena [facility] Center04-11-2023 History of Present illness Narrative* Karine Silvestre RT(R) - 10/25/2022 3:00 PM EDT Radiology [...] 25, 2022 2:47 PM documented in this encounterAdena [facility]04-05-2023 History of Present illness Narrative* Nu Brown RT(Jose) - 10/19/2022 5:40 PM EDT Radiology Service [...] IV DATA: Not applicable SIGNED BY: RT Julieth(Jose) October 19, 2022 5:38 PM documented in this encounterAdena [facility]04-05-2023 Miscellaneous Notes* Result Encounter Note - Edward Martinez MD - 10/19/2022 5:40 PM EDT Result viewed. No acute disease. documented in this encounterAdena [facility]04-05-2023 Progress note* Result Encounter Note - Edward Martinez MD - 10/19/2022 5:40 PM EDT Result viewed. No acute disease. [facility]04-04-[facility] History of Present illness Narrative* RAHEEM Johnson - 10/18/2022 7:30 AM EDT This note was created using uShipriter. Subjective Rosario Kaiser is a 46 year [...] Right 10/2016 breast abscess S BALLOON,UTERINE ABLATION 57369 2007 TUBAL LIGATION HX 1996 ALLERGIES Patient has no known allergies. MEDICATIONS [...] ER evaluation. RAHEEM Johnson documented in this encounterAdena [facility]12-08-2016 History of Past illness Narrative* Problem Noted Date Resolved Date Chronic diarrhea 06/23/2016 10/19/2022 documented as of this encounter (statuses as of 10/28/2022) [place] [address]-08-2016 History of Past illness Narrative* Problem Noted Date Resolved Date Chronic diarrhea 06/23/2016 10/19/2022 documented as of this encounter (statuses as of 10/28/2022) [place] [address]-08-2016 History of Past illness Narrative* Problem Noted Date Resolved Date Chronic diarrhea 06/23/2016 10/19/2022 documented as of this encounter (statuses as of 11/07/2022) [place] [address]-08-2016 History of Past illness Narrative* Problem Noted Date Resolved Date Chronic diarrhea 06/23/2016 10/19/2022 documented as of this encounter (statuses as of 11/09/2022) [facility] of [facility] illness Narrative* Problem Noted Date Resolved Date Chronic diarrhea 06/23/2016 10/19/2022 documented as of this encounter (statuses as of 11/15/2022) [facility] of [facility] illness Narrative* Problem Noted Date Diagnosed Date Resolved Date Chronic diarrhea 06/23/2016 10/19/2022 documented as of this encounter (statuses as of 05/21/2023) [facility] of [facility] illness Narrative* Problem Noted Date Diagnosed Date Resolved Date Chronic diarrhea 06/23/2016 10/19/2022 documented as of this encounter (statuses as of 05/21/2023) [facility] of [facility] illness Narrative* Problem Noted Date Diagnosed Date Resolved Date Chronic diarrhea 06/23/2016 10/19/2022 documented as of this encounter (statuses as of 05/21/2023) [facility] CenterConsult note Author Wolfgang Roberts [facility] Note Date/Time October 22, 2024 8:10 am [facility] Medical Records Department [address] [place] [address] Pre-Anesthesia Evaluation 10/22/24 0800 MR#: [id number] Acct: [id number] Name: ROSARIO KAISER Rep #:[id number] : 1975 48 From: Wolfgang Roberts MD PCP: Dr. 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: Anesthesia History - burr machine operator Hx Hospitalization No 10/17/24 15:20 Any Problems [...] sips of water?: No PONV PONV - burr machine operator: PONV - burr machine operator Female Yes 10/17/24 15:20 HX of Motion [...] 10/22/24 07:31 Respiratory Assessment Respiratory Assessment - burr machine operator: Respiratory Tract Infection Hx - burr machine operator Hx Respiratory Tract Infection No 10/17/24 15:20 STOP Sleep Apnea STOP Sleep Apnea - burr machine operator: STOP Sleep Apnea - burr machine operator Hx Hypertension No 10/17/24 15:20 Hx Sleep [...] Tobacco Use History Tobacco Use History - burr machine operator: Tobacco Use History - burr machine operator Tobacco Use Smoking Status Current every day smoker 10/17/24 15:20 Hx Tobacco Use Yes: vapes 10/17/24 15:20 Years Smoking Packs Smoked per Day Smoking Cessation Date was within the last 15 years Hx Smoking Cessation Date Hx Smoking Cessation No 10/17/24 15:20 Counseling Any additional information?: Yes Tobacco Use: Vapor (Patient did vape today.) Hematologic Medial History Hematologic Hx - burr machine operator: Hematologic Medical Hx - clinical documentation specialist Hx of Blood Transfusion No 10/17/24 15:20 [...] confused, unrespo /Reproduction History /Reproductive History - burr machine operator: /Reproductive Hx- burr machine operator Hx Now No 10/17/24 15:20 Gestational Age [...] MD Cosigner Signature: Date CC: ~ Signed [facility] Work Phone: Consult note Author Dean Marshall [facility] Note Date/Time October 22, 2024 9:24 am [facility] Medical Records Department [address] [place] [address] Anesthesia Postop Eval I 10/22/24 09 MR#: [id number] Acct: [id number] Name: EDMUNDOROSARIO Rep #:[id number] : 1975 48 From: Dean Marshall PCP: Dr. Joann Live MD Status:REG SDC Y Race: C Location: [place] [address] Anesthesia: Postop Eval I Current Vital Signs [...] Postop Eval 1 completed: Yes 10/22/24 0924 <Electronically signed by Dean Marshall > Date _ Dean Marshall Cosigner Signature: Date CC: ~ Signed [facility] Work Phone: Consult note Author Wolfgang Roberts [facility] Note Date/Time March 03, 2025 11 :38am [facility] Medical Records Department [address] [place] [address] Pre-Anesthesia Evaluation 03/03/25 1127 MR#: [id number] Acct: [id number] Name: ROSARIO KAISER DANIEL Rep #:[id number] : 1975 49 From: Wolfgang Roberts MD PCP: Dr. Joann Live MD Status:REG SD Y Race: C Location: [place] [address] ASA Classification* ASA Classification ASA Classification: 3 Assessment & Plan Anesthesia* Anesthesia Assessment Anesthesia [...] Patient and Chart Anesthesia Focused Assessment* Temperature: 98.4 F Pulse Rate: 71 Blood Pressure: 108/79 Respiratory Rate: 16 Pulse Ox: 96 Oxygen Delivery Method: Room Air Airway Assessment Mouth opens: >3 cm Mallampati Score: I Teeth Condition: Dentures (Patient has full upper dentures.) and Missing (Missing multiple teeth on the bottom molars. Rest are tight.) Neck Range of motion (ROM): Full ROM Labs Anesthesia Preop lab: CBC WBC 7.5 K/mm3 (4.4-11.0) 08/08/23 15:40 08/08/23 RBC 4.40 M/mm3 (4.2-5.4) 08/08/23 15:40 08/08/23 Hgb 13.3 g/dL (12.0-15.0) 08/08/23 15:40 08/08/23 Hct 41.7 % (37-47) 08/08/23 15:40 08/08/23 Plt Count 284 K/mm3 (150-450) 01/08/25 13:54 01/08/25 CHEMISTRY Potassium 3.7 mmol/L (3.5-5.1) 08/08/23 15:40 08/08/23 Sodium 143 mmol/L (136-145) 08/08/23 15:40 08/08/23 BUN 16 mg/dL (7-18) 08/08/23 15:40 08/08/23 Creatinine 0.59 mg/dL (0.55-1.02) 08/08/23 15:40 08/08/23 Glucose 92 mg/dL (74-106) 08/08/23 15:40 08/08/23 TSH 1.15 uIU/mL (0.358-3.74) 08/08/23 15:40 COAG PT 12.0 SECONDS (11.7-14.9) 01/08/25 13:54 Pre-Assessment Diagnosis/Proposed Procedure Planned Operative Procedure(s): (R) Insertion, Vascular Port right poss left Anesthesia History Anesthesia History - burr machine operator: Anesthesia History - burr machine operator Hx Hospitalization No 02/21/25 10:19 Any Problems With Anesthesia No 02/21/25 10:19 Cholinesterase deficiency No 02/21/25 10:19 You/Your Family Experience No 02/21/25 10:19 fever (hyperthermia) with Relationship Recent Exposure to Contagious No 03/03/25 11:15 Disease Does patient have nerve No 02/21/25 10:19 stimulator Patient instructed to have device shut off --Does patient have Pacemaker No 03/03/25 11:15 or ICD? When Was Last Pacemaker Check QUESTION #4 FULL TEXT: You/Your Family Experience fever (hyperthermia) with Anesthesia Last Oral Intake Last Oral intake: Last Oral Intake NPO since 00:00 03/03/25 11:15 Meds taken in AM with sips of water? Meds patient instructed to take am of surgery PONV PONV - burr machine operator: PONV - burr machine operator Female Yes 02/21/25 10:19 HX of Motion Sickness No 02/21/25 10:19 HX of N/V After Surgery Yes 02/21/25 10:19 Non-Smoker No 02/21/25 10:19 Duration of Surgery greater No 02/21/25 10:19 than 60 minutes Number of Risk Factors 2 02/21/25 10:19 PONV Score Moderate Risk 02/21/25 10:19 Height & Weight Height & Weight: Anesthesia: Height & Weight Height 5 ft 6 in 03/03/25 11:15 Weight: 68.5 kg 03/03/25 11:15 Body Mass Index (BMI) 24.3 03/03/25 11:15 Respiratory Assessment Respiratory Assessment - burr machine operator: Respiratory Tract Infection Hx - burr machine operator Hx Respiratory Tract Infection No 02/21/25 10:19 STOP Sleep Apnea STOP Sleep Apnea - burr machine operator: STOP Sleep Apnea - burr machine operator Hx Hypertension No 02/21/25 10:19 Hx Sleep Apnea No 02/21/25 10:19 CPAP BIPAP Do you snore loudly (louder No 02/21/25 10:19 than talking or can be heard Do you often feel tired/ No 02/21/25 10:19 fatigued/ sleepy during daytime? Has anyone observed you stop No 02/21/25 10:19 breathing during sleep? STOP Results Negative 02/21/25 10:19 QUESTION #5 FULL TEXT : Do you snore loudly (louder than talking or can be heard through closed doors)? Tobacco Use History Tobacco Use History - burr machine operator: Tobacco Use History - burr machine operator Tobacco Use Vapor 10/22/24 08:04 Smoking Status Current every day smoker 02/21/25 10:19 Hx Tobacco Use Yes 02/21/25 10:19 Years Smoking Packs Smoked per Day Smoking Cessation Date was within the last 15 years Hx Smoking Cessation Date Hx Smoking Cessation No 02/21/25 10:19 Counseling Any additional information?: Yes Tobacco Use: Vapor (Patient vaped today.) Hematologic Medial History Hematologic Hx - burr machine operator: Hematologic Medical Hx - clinical documentation specialist Hx of Blood Transfusion No 02/21/25 10:19 Hx of Transfusion in last 3 No 02/21/25 10:19 Months Date of Last Transfusion (if within last 3 months) Ever experience any problems No 02/21/25 10:19 with transfusion(s)? Specify any problems Hx of Preganancy in last 3 No 02/21/25 10:19 Months Nurse Filling Out Transfusion JZOLLINGE 02/21/25 10:19 & Questions: Date: 02/21/25 02/21/25 10:19 Time: 10:21 02/21/25 10:19 Patient unable to answer at this time (ie. confused, unrespo /Reproduction History /Reproductive History - burr machine operator: /Reproductive Hx- burr machine operator Hx Now No 02/21/25 10:19 Gestational Age (in weeks): EDC: Hx Hx Para Hx Section SAB No 02/21/25 10:19 Active Medications Active Medications: Current Medications Generic Name Dose Route Start Last Admin Trade Name Freq PRN Reason Stop Dose Admin Cefazolin Sodium 2 gm/ Sodium 110 mls @ 200 mls/hr 03/03/25 12:15 Chloride IV 03/03/25 12:47 INTRAOP ONE Lactated Ringer's 1,000 mls @ 15 mls/hr 03/03/25 11:00 03/03/25 11:19 IV 15 mls/hr .Q48H EAMON Administration PFSH Medical History Cancer Depression Anxiety Marijuana use History of tobacco use Encounter for screening [...] mg capsule (Zyrtec) 10 mg PO DAILY 11/2002/24/25 History multivitamin (Daily Multiple 1 ea PO DAILY 11/24/15 History tablet) diclofenac sodium 1 % topical gel 2 g topical .qid PRN pain 08/15/24 Unknown History ibuprofen 200 mg tablet 200 mg PO Q6H PRN pain 08/15 Unknown History Held on 01/21/25. Instructions: pt held turmeric 400 mg capsule 400 mg PO QDAY 08/15/2402/14 History Collagen Peptide powder 1 tbsp PO DAILY 01/07/2506/10 History magnesium 250 mg tablet 250 mg PO QDAY 01/07/2502/14 History albuterol sulfate 90 mcg/actuation 2 inh inhalation Q4 H PRN shortness 01/08/25 Unknown Rx aerosol inhaler (Ventolin HFA) of breath or wheezing # 18 grams lorazepam 0.5 mg tablet (Ativan) 0.5 mg PO QDAY PRN an xiety 02/21/25 02/24/25 History Allergy/AdvReac Type Severity Reaction Status Date / Time sulfamethoxazole (From AdvReac Nausea/Vom/ Verified 03/03/25 11:13 Bactrim) Diarrhea trimethoprim (From Bactrim) AdvReac Nausea/Vom/ Verified 03/03/25 11:13 Diarrhea Family History Grandmother Lung cancer Heart disease Uncle Lung cancer Surgical History History of tubal ligation History of lumpectomy of right breast History of surgery History of abdominal hysterectomy Social History household members: none current occupational status: employed Smoking Status: Former smoker alcohol intake: current substance use type: does not use Review of Systems (Anesthesia) ROS Narrative System reviewed and no additional complaints, except as documented. 03/03/25 1138 <Electronically signed by Wolfgang verdin MD> Date _ Wolfgang Shipley Signature: Date CC: ~ Signed [facility] Work Phone: Consult note Author John Mcconnell [facility] Note Date/Time March 03, 2025 12 :41pm [facility] Medical Records Department [address] [place] [address] Anesthesia Postop Eval I 03/03/25 1240 MR#: [id number] Acct: [id number] Name: ROSARIO KAISER DANIEL Rep #:[id number] : 1975 49 From: John Mcconnell CRNA PCP: Dr. Joann Live MD Status:REG SDC Y Race: C Location: [place] [address] Anesthesia: Postop Eval I Current Vital Signs Temperature: 97.7 F Pulse Rate: 73 Blood Pressure: 111/68 Respiratory Rate: 20 Pulse Ox: 100 Oxygen Delivery Method: Room Air Assessment Airway patent: Yes Spontaneous unlabored respirations: Yes Mental status: Awake and Calm nausea: No Vomiting: No Anesthesia Complication: No Fluid Hydration Crystalloid volume administer (ml): 300 Total IV fluid infused: 300 Progress Note Anesthesia document: Postop Eval 1 completed: Yes 03/03/25 1241 <Electronically signed by John mitchell CRNA> Date _ John Cooker Signature: Date CC: ~ Signed [facility] Work Phone: Discharge summary Author Allan Fam [facility] Note Date/Time March 03, 2025 12 :38pm [facility] Medical Records Department [address] [place] [address] Instructions for Home/Discharge Instructions 03/03/25 1237 MR#: [id number] Acct: [id number] Name: ROSARIO KAISER Rep #:[id number] : 1975 49 From: Allan monk MD PCP: Dr. Joann Live MD Status:REG SDC Discharge Instructions Procedure Port-A-Cath Diet Discharge Diet: Light diet - advance as tolerated (Pain medication may cause nausea. You should typically eat light foods as you take your pain medication.) Activity Discharge Activity: Return to Normal Activity and May Shower (with your bandage in place in 1-2 days after surgery. DO NOT SHOWER WHEN YOUR PORT IS ACCESSED.) Additional Activity Instructions:: Alternate Tylenol and ibuprofen for pain control Dressing / Incision Call your doctor if your incision/area has: Continuous Slow Oozing, Sudden Increased Bleeding, Increased Pain/ Swelling, Increased Redness and Foul Smelling Discharge Call your doctor if you observe: Fever of 101 or Higher Remove Dressing in: 2 days Cleanse incision/area with: Soap & Water Follow Up Care Please Follow Up With: Allan Fam MD When: as needed [phone] Test Results: Test results from this visit will be discussed in further detail at your follow- up appointment, if applicable. Discharge Plan Admission Attending Provider: Allan Fam Primary Care Provider: Joann Live Instructions Print Language: Japanese Discharge Orders/Prescriptions Prescriptions: No Action ibuprofen 200 mg tablet 200 mg PO Q6H PRN (Reason: pain) diclofenac sodium 1 % gel 2 g topical .qid PRN (Reason: pain) turmeric 400 mg capsule 400 mg PO QDAY magnesium 250 mg tablet 250 mg PO QDAY Collagen Peptide powder 1 tbsp PO DAILY Rx Instructions: 1 tbsp in her coffee albuterol sulfate [Ventolin HFA] 90 mcg/actuation HFA aerosol inhaler 2 inh inhalation Q4H PRN (Reason: shortness of breath or wheezing) Qty: 18 11RF lorazepam [Ativan] 0.5 mg tablet 0.5 mg PO QDAY PRN (Reason: anxiety) Zyrtec 10 MG capsule 10 mg PO DAILY multivitamin [Daily Multiple] 1 EACH tablet 1 ea PO DAILY Referrals / Follow Up: Joann Live MD [Primary Care Provider] - Disposition Disposition (needs filled in before D/C Order can be placed): Home, Self Care 03/03/25 1238<Electronically signed by Allan Fam MD>Allan Fam MD CC: Dr. 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 documented in this encounter [facility] [place] [facility]* Diagnosis Abnormal screening mammogram- Primary Abnormal mammogram, unspecified documented in this encounter [facility] [place] [facility]* Diagnosis Acute back pain with sciatica, right- Primary documented in this [facility] [place] [facility]* Diagnosis Skin lesion of left leg- Primary Unspecified disorder of skin and subcutaneous tissue Acute back pain with sciatica, right Elevated liver enzymes Other nonspecific abnormal serum enzyme levels Special screening for malignant neoplasms, colon Encounter for immunization Need for other specified prophylactic vaccination against single bacterial disease documented in this encounter [facility] [place] [facility]* Diagnosis Abnormal screening mammogram Abnormal mammogram, unspecified documented in this encounter [facility] [place] [facility]* Diagnosis Screening mammogram for breast cancer documented in this encounter [facility] [place] [facility]* Diagnosis Abnormal screening mammogram Abnormal mammogram, unspecified documented in this encounter [facility]No assessment [facility] Work Phone: evaluation note* Diagnosis Encounter for screening mammogram for breast cancer documented in this encounter [facility] note* Diagnosis Acute bilateral low back pain with right-sided sciatica documented in this encounter [facility] [place] [facility]* Diagnosis Encounter for screening mammogram for breast cancer [facility] Justus Robertson [facility] Note Date/Time October 22, 2024 8:43 am [facility] Medical Records Department [address] [place] [address] History & Physical Exam 10/22/24 0841 MR#: [id number] Acct: [id number] Name: ROSARIO KAISER Rep #:[id number] : 1975 48 From: Justus Robertson MD PCP: Dr. Joann Live MD Status:REG [facility] Location: [place] [address] HPI - General General Date of Admission: 10/22/24 Date of Service: 10/22/24 Chief Complaint: Colonoscopy HPI Narrative ROSARIO KAISER, is a 48 F who presents today for screening colonoscopy. She has had no previous colonoscopy. No GI issues or symptoms. No family history of colon polyps or colon cancers [facility] Medical History Wears glasses Wears dentures Alcohol [...] begin momentarily. Charges/Coding Visit Charges Inpatient E&M: 69471 Init Hosp L1 10/22/24 0843 <Electronically signed by Justus Robertson MD> Cosigner Signature (if applicable): CC: Dr. Joann Live MD; Dr. Justus Robertson MD~ Signed [facility] Work Phone: History and physical note Author Allan Fam [facility] Note Date/Time March 03, 2025 11 :42am [facility] Medical Records Department [address] [place] [address] History & Physical Exam 03/03/25 1142 MR#: [id number] Acct: [id number] Name: ROSARIO KAISER Rep #:[id number] : 1975 49 From: Allan monk MD PCP: Dr. Joann Live MD Status:[facility] Location: [place] [address] History and Physical Date of Admission: 03/03/25 Intake Vital Signs 02/17/2509:43 02/21/2509:11 02/25/2509:15 Height 5 ft 6 in 5 ft 6 in 5 ft 6 in Weight: 153 lb 1 oz 152 lb 2 oz BMI 24.7 24.5 BP 124/86 H 125/73 H Blood Pressure Location Rt brachial Rt brachial Position Sitting Sitting Respiration 18 18 Pulse 69 63 Pulse Source Monitor Monitor Temp 98.0 F 97.2 F L Temp Source Temporal Pulse Oximetry (%) 97 97 Oxygen Delivery Method room air room air Intake Visit Reasons: PORT PLACEMENT Chief Complaint: port placement Is patient in pain?: No Allergies sulfamethoxazole (From Bactrim) Adverse Reaction (Verified 02/25/25 09:15) Nausea/Vom/Diarrheatrimethoprim (From Bactrim) Adverse Reaction (Verified 02/25/25 09:15) Nausea/Vom/Diarrhea Medications ?Medication ?Instructions ?Recorded ?Confirmed ?Type cetirizine 10 mg capsule (Zyrtec) 10 mg PO DAILY 11/21/15 02/25/25 History multivitamin (Daily Multiple 1 ea PO DAILY 11/24/15 02/25/25 History tablet) diclofenac sodium 1 % topical gel 2 g topical .qid PRN pain 08/15/2402/25 History ibuprofen 200 mg tablet 200 mg PO Q6H PRN pain 08/15/24 02/25/25 History Held on 01/21/25. Instructions: pt held turmeric 400 mg capsule 400 mg PO QDAY 08/15/24 02/25/25 History Collagen Peptide powder 1 tbsp PO DAILY 01/07/25 02/25/25 Histor y magnesium 250 mg tablet 250 mg PO QDAY 01/07/25 02/25/25 History albuterol sulfate 90 mcg/actuation 2 inh inhalation Q4H PRN shortness 01/0802/25/25 Rx aerosol inhaler (Ventolin HFA) of breath or wheezing #18 grams lorazepam 0.5 mg tablet (Ativan) 0.5 mg PO QDAY PRN anxiety 02/21/2502/14 History PFSH Medical History Cancer Depression Anxiety Marijuana use History of tobacco use Encounter for screening [...] History of surgery History of abdominal hysterectomy Family History Grandmother Lung cancer Heart diseaseUncle Lung cancer Social History household members: none current occupational status: employed Smoking Status: Current every day smoker tobacco type: e-cigarettes alcohol intake: current substance use type: does not use HPI HPI HPI: Patient is a 49-year-old female here with right lung cancer. She is here for port placement. ROS General General: Yes fatigue; No weight change, appetite, colon cancer, breast cancer or weakness HEENT HEENT: Yes difficulty swallowing; No eye injury, eye surgery, swollen glands or hoarseness Endo Endocrine: No thyroid disease, diabetes mellitus, thyroid cancer, Hair loss, heat intolerance or cold intolerance Skin Skin: No rash or changing moles Musc Musculoskeletal: Yes back problems and arthritis; No rheumatoid arthritis, gout or joint pain Cardio Cardiovascular: No murmur, pacemaker, heart disease, atrial fibrillation, high blood pressure, heart attack, heart stent, palpitations, shortness of breath with exertion or chest pain Psych Psychiatric: Yes anxiety; No depression or hearing voices Resp Respiratory: Yes shortness of breath, No sleep apnea, No cough, No COPD, No asthma, Yes emphysema and No wheezing Gastro Gastrointestinal: No abdominal pain, No nausea or vomiting, No diarrhea, No constipation, No blood in stool, Yes acid reflux, No hemorrhoids, No ulcers, No gallbladder problem and No black,tarry stools Mickey Hematologic: No blood thinners, No blood disorders, No bleeding, No anemia and No blood clots Neuro Neurologic: No numbness, No tingling and No weakness Exam Const General: cooperative Orientation: alert and oriented x3 HENMT Head: normal to inspection Neck Neck: normal visual inspection and full ROM Chest Chest palpation & inspection: normal inspection of the chest Resp Effort & Inspection: normal respiratory effort Auscultation: clear to auscultation bilaterally Cardio Rate: regular rate Rhythm: regular rhythm GI Inspection: non-distended Palpation: soft and nontender Skin General: no rashes or lesions noted Neuro General: patient alert and patient oriented x3 Extrem General: full ROM Psych Appearance: grossly normal Mental Status: mental status grossly normal Assessment and Plan Assessment and Plan (1) 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 I discussed left chest port placement with the patient in detail. I discussed the risks including but not limited to bleeding, infection, pneumothorax, line infection or DVT. Patient understands the risks and is willing to proceed. She will hold her turmeric. Allan Fam MD Pager: [facility] [address] [place] [address] Outpatient Pavilion, [address] [place] [address] Office: I have examined the patient and the H&P has been reviewed. There are no clinicalchanges since date of exam. 03/03/25 1142 <Electronically signed by Allan Fam MD> Cosigner Signature (if applicable): CC: Dr. Allan Fma MD; Dr. Joann Live MD~ Signed [facility] Work Phone: Hospital Discharge instructionsAmbulatory Orders* Fast Pass: Oncology Referral [facility] Location: None [facility] Work Phone: Reason for referral (narrative)* Diagnostic Procedure Only (Routine) - Pending Review Specialty Diagnoses / Procedures Referred By Madeline hamlin Referred To Contact [facility] Diagnoses Abnormal screening mammogram Procedures US BREAST LTD LEFT US BREAST UNI REAL TIME WITH IMAGE LIMITED Kandice Mario APRN.CLEANING VALIDATION CONSULTANT [address] [place] [address] [facility] [address] [place] [address] Referral ID Status Reason Start Date Expiration Date Visits Requested Visits Authorized [id number] Pending Review Auto-Generat ed Referral 10/31/2022 11/30/2023 1 1 * Diagnostic Procedure Only (Routine) - Pending Review Specialty Diagnoses / Procedures Referred By Madeline hamlin Referred To Contact [facility] Diagnoses Abnormal screening mammogram Procedures US BREAST LTD RIGHT US BREAST UNI REAL TIME WITH IMAGE LIMITED Kandice Mario APRN.CNP [address] [place] [address] [facility] [address] [place] [address] Referral ID Status Reason Start Date Expiration Date Visits Requested Visits Authorized [id number] Pending Review Auto-Generat ed Referral 10/31/2022 11/30/2023 1 1 * Diagnostic Procedure Only (Routine) - Pending Review Specialty Diagnoses / Procedures Referred By Contac t Referred To Contact [facility] Diagnoses Abnormal screening mammogram Procedures HERMILA DIAGNOSTIC BILATERAL DIAGNOSTIC MAMMOGRAPHY COMPUTER-AIDED DETCJ BI Kandice Mario APRN.CLEANING VALIDATION CONSULTANT [address] [place] [address] [facility] [address] [place] [address] Referral ID Status Reason Start Date Expiration Date Visits Requested Visits Authorized [id number] Pending Review Auto-Generat ed Referral 10/31/2022 11/30/2023 1 1 [facility] for referral (narrative)* Outpatient Procedure (Routine) - Pending Review Specialty Diagnoses / Procedures Referred By Contac t Referred To Contact [facility] Diagnoses Special screening for malignant neoplasms, colon Procedures COLONOSCOPY SCREENING COLONOSCOPY FLX DX W/COLLJ SPEC WHEN PFRMD Kandice Mario APRN.CLEANING VALIDATION CONSULTANT [address] [place] [address] [facility] [address] [place] [address] Referral ID Status Reason Start Date Expiration Date Visits Requested Visits Authorized [id number] Pending Review Auto-Generat ed Referral 11/15/2022 11/16/2023 1 1 * Consult, Test, Treat (Routine) - Pending Review Specialty Diagnoses / Procedures Referred By Contac t Referred To Contact Dermatology Diagnoses Skin lesion of left leg Procedures CONSULT TO DERMATOLOGY OFFICE/OUTPATIENT NEW HIGH MDM 60-74 MINUTES Kandice Mario APRN.CLEANING VALIDATION CONSULTANT [address] [place] [address] Referral ID Status Reason Start Date Expiration Date Visits Requested Visits Authorized [id number] Pending Review PCP Requested Referral 11/15/2022 11/15/2023 1 1 [facility] for referral (narrative)* Diagnostic Procedure Only (Routine) - Pending Review Specialty Diagnoses / Procedures Referred By Contac t Referred To Contact [facility] Diagnoses Abnormal screening mammogram Procedures US BREAST LTD LEFT US BREAST UNI REAL TIME WITH IMAGE LIMITED Kandice Mario APRN.CNP [address] [place] [address] [facility] [address] [place] [address] Referral ID Status Reason Start Date Expiration Date Visits Requested Visits Authorized [id number] Pending Review Auto-Generat ed Referral 10/31/2022 11/30/2023 1 1 * Diagnostic Procedure Only (Routine) - Pending Review Specialty Diagnoses / Procedures Referred By Juanac t Referred To Contact [facility] Diagnoses Abnormal screening mammogram Procedures US BREAST LTD RIGHT US BREAST UNI REAL TIME WITH IMAGE LIMITED Kandice Mario APRN.CNP [address] [place] [address] [facility] [address] [place] [address] Referral ID Status Reason Start Date Expiration Date Visits Requested Visits Authorized [id number] Pending Review Auto-Generat ed Referral 10/31/2022 11/30/2023 1 1 [facility] for referral (narrative)* Diagnostic Procedure Only (Routine) - Pending Review Specialty Diagnoses / Procedures Referred By Contac t Referred To Contact [facility] Diagnoses Screening mammogram for breast cancer Procedures HERMILA SCREENING SCREENING MAMMOGRAPHY BI 2-VIEW BREAST INC CAD Edward Martinez MD [address] [place] [address] [facility] [address] [place] [address] Referral ID Status Reason Start Date Expiration Date Visits Requested Visits Authorized [id number] Pending Review Auto-Generat ed Referral 10/19/2022 11/18/2023 1 1 [facility] for referral (narrative)* Diagnostic Procedure Only (Routine) - Pending Review Specialty Diagnoses / Procedures Referred By Madeline hamlin Referred To Contact [facility] Diagnoses Encounter for screening mammogram for breast cancer Procedures HERMILA SCREENING W [place] SCREENING DIGITAL BREAST TOMOSYNTHESIS BI SCREENING MAMMOGRAPHY BI 2-VIEW BREAST INC CAD Edward Martinez MD [address] [place] [address] [facility] [address] [place] [address] Referral ID Status Reason Start Date Expiration Date Visits Requested Visits Authorized [id number] Pending Review Auto-Generat ed Referral 01/17/2024 02/15/2025 1 1 [facility] for referral (narrative)* Diagnostic Procedure Only (Routine) - Closed Specialty Diagnoses / Procedures Referred By Madeline hamlin Referred To Contact [facility] Diagnoses Acute bilateral low back pain with right-sided sciatica Procedures XR LUMBAR GENERAL 3V AP/LAT/L5-S1 RADEX SPINE LUMBOSACRAL 2/3 VIEWS Edward Martinez MD [address] [place] [address] [place] [address] Referral ID Status Reason Start Date Expiration Date V isits Requested Visits Authorized [id number] Closed Auto-Generate d Referral 10/19/2022 11/18/2023 1 1 [facility] for referral (narrative)No reason for referral information availableW[facility] Work Phone: Reason for visit Narrative* Diagnostic Procedure Only (Routine) - Pending Review Specialty Diagnoses / Procedures Referred By Madeline hamlin Referred To Contact [facility] Diagnoses Screening mammogram for breast cancer Procedures HERMILA SCREENING SCREENING MAMMOGRAPHY BI 2-VIEW BREAST INC CAD Edward Martinez MD [address] [place] [address] [facility] [address] [place] [address] Referral ID Status Reason Start Date Expiration Date Visits Requested Visits Authorized [id number] Pending Review Auto-Generat ed Referral 10/19/2022 11/18/2023 1 1 [facility] for visit Narrative* Diagnostic Procedure Only (Routine) - Closed Specialty Diagnoses / Procedures Referred By Contac t Referred To Contact BR IMAGING Diagnoses Abnormal screening mammogram Procedures HERMILA DIAGNOSTIC BILATERAL DIAGNOSTIC MAMMOGRAPHY COMPUTER-AIDED DETCJ BI Older, Kandice, DISH MAKER.CLEANING VALIDATION CONSULTANT [address] [place] [address] Br Imaging [address] [place] [address] Referral ID Status Reason Start Date Expiration Date V isits Requested Visits Authorized [id number] Closed Auto-Generate d Referral 10/31/2022 11/30/2023 1 1 [facility] for visit Narrative* Diagnostic Procedure Only (Routine) - Closed Specialty Diagnoses / Procedures Referred By Contac t Referred To Contact XR IMAGING Diagnoses Acute bilateral low back pain with right-sided sciatica Procedures XR LUMBAR GENERAL 3V AP/LAT/L5-S1 RADEX SPINE LUMBOSACRAL 2/3 VIEWS Edward Martinez MD [address] [place] [address] [place] [id number] Referral ID Status Reason Start Date Expiration Date V isits Requested Visits Authorized [id number] Closed Auto-Generate d Referral 10/19/2022 11/18/2023 1 1 [facility] Summary Purpose Family History Relationship Condition Age at Onset Recorded Date/T berenice grandmother Malignant neoplasm of lung Unknown Cardiac disease Unknown uncle Malignant neoplasm of lung Unknown Advance Directives Advance Directive Response Recorded Date/ Time Advance Directives No June 7:48pm Living Will No July 08 023 7:50am Power of Supervisor [employer] No July 08, 2023 7:50am Advance Directive Response Recorded Date/ Time Advance Directives No June 8:48pm Living Will No July 08 023 8:50am Power of Supervisor [employer] No July 08, 2023 8:50am Advance Directive Response Recorded Date/ Time Advance Directives No June 8:48pm Advance Directive Response Recorded Date/ Time Living Will No October 17, 2024 3:20pm Do you have a Healthcare Power of Supervisor [employer]? No October 17, 2024 3:20pm Advance Directives No June 8:48pm Advance Directive Response Recorded Date/ Time Do you have a Healthcare Power of Supervisor [employer]? No February 21, 2025 10:19am Advance Directives No June 8:48pm Chief Complaint and Reason for Visit Chief Complaint back Chief Complaint back 6 MONTH F/U (FROM [facility] 11/2022 MAMM/US) Chief Complaint back 6 MONTH F/U (FROM [facility] 11/2022 MAMM/US) CARPAL TUNNEL VS CERVICAL [...] ight upper lobe January 30, 2025 9:11am Chief Complaint Admit Date Lung cancer screening January 07, 2025 12 :06pm SCREENING January 07, 2025 1:00 pm LDCT- CC Patient January 08, 2025 12:3 5pm Other nonspecific abnormal finding of sneha ng field January 21, 2025 6:49am Shortness of breath January 23, 2025 7:56 am Shortness of breath January 24, 2025 11:3 5am Results January 30, 2025 9:11 am LUNG February 11, 2025 7:12 am LUNG CA February 17, 2025 9:0 6am Reason for Visit Admit Date Encounter for [...] ight upper lobe January 30, 2025 9:11am Headache February 17, 2025 9:0 6am Metastasis to lymph nodes February 17 9:06am 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 February 17, 2025 9:06am Reason for Visit Admit Date Encounter for [...] ight upper lobe January 30, 2025 9:11am Headache February 17, 2025 9:0 6am 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 February 17, 2025 9:06am 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 February 17, 2025 9:06am Chief Complaint Admit Date Lung cancer screening January 07, 2025 12 :06pm SCREENING January 07, 2025 1:00 pm LDCT- CC Patient January 08, 2025 12:3 5pm Other nonspecific abnormal finding of sneha ng field January 21, 2025 6:49am Shortness of breath January 23, 2025 7:56 am Shortness of breath January 24, 2025 11:3 5am Results January 30, 2025 9:11 am LUNG February 11, 2025 7:12 am LUNG CA February 17, 2025 9:0 6am CONSULT - LUNG February 21, 2025 8:5 0am Reason for Visit Admit Date Encounter for [...] ight upper lobe January 30, 2025 9:11am Headache February 17, 2025 9:0 6am 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 February 17, 2025 9:06am 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 February 17, 2025 9:06am Chief Complaint Admit Date Lung cancer screening January 07, 2025 12 :06pm SCREENING January 07, 2025 1:00 pm LDCT- CC Patient January 08, 2025 12:3 5pm Other nonspecific abnormal finding of sneha ng field January 21, 2025 6:49am Shortness of breath January 23, 2025 7:56 am Shortness of breath January 24, 2025 11:3 5am Results January 30, 2025 9:11 am LUNG February 11, 2025 7:12 am LUNG CA February 17, 2025 9:0 6am CONSULT - LUNG February 21, 2025 8:5 0am PORT PLACEMENT February 25, 2025 9: 05am Reason for Visit Admit Date Encounter for [...] ight upper lobe January 30, 2025 9:11am Headache February 17, 2025 9:0 6am 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 February 17, 2025 9:06am 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 February 17, 2025 9:06am 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 February 21, 2025 8:50am Chief Complaint Admit Date Lung cancer screening January 07, 2025 12 :06pm SCREENING January 07, 2025 1:00 pm LDCT- CC Patient January 08, 2025 12:3 5pm Other nonspecific abnormal finding of sneha ng field January 21, 2025 6:49am Shortness of breath January 23, 2025 7:56 am Shortness of breath January 24, 2025 11:3 5am Results January 30, 2025 9:11 am LUNG February 11, 2025 7:12 am LUNG CA February 17, 2025 9:0 6am CONSULT - LUNG February 21, 2025 8:5 0am PORT PLACEMENT February 25, 2025 9: 05am LUNG CA February 28, 2025 10 :58am Insertion, Vascular Port right poss left March 03, 2025 10:41am Insertion, Vascular Port right poss left March 03, 2025 11:42am Reason for Visit Admit Date Encounter for [...] ight upper lobe January 30, 2025 9:11am Headache February 17, 2025 9:0 6am 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 February 17, 2025 9:06am 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 February 17, 2025 9:06am 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 February 21, 2025 8:50am Encounter for insertion of venous access port February 25, 2025 9:05am 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 February 25, 2025 9:05am Additional Source Comments INFORMATION SOURCE (unrecogn ized section and content) DATE CREATED AUTHOR 02/10/2020 [facility] DATE CREATED AUTHOR AUTHOR'S ORGANIZ ATION 01/19/2025 [facility] DATE CREATED AUTHOR AUTHOR'S ORGANIZ ATION 03/01/2025 [facility] Source Comments (unrecognize d section and content) In the event this informatio n is protected by the Federal Confidentiality of Alcohol and Drug Abuse Patient Records regulations: The Federal rules restrict any use of the information to criminally investigate or prosecute any alcohol or drug abuse patient.[facility] the event this information is protected by the Federal Confidentiality of Alcohol and Drug Abuse Patient Records regulations: The Federal rules restrict any use of the information to criminally investigate or prosecute any alcohol or drug abuse patient.[facility] the event this information is protected by the Federal Confidentiality of Alcohol and Drug Abuse Patient Records regulations: The Federal rules restrict any use of the information to criminally investigate or prosecute any alcohol or drug abuse patient.[facility] the event this information is protected by the Federal Confidentiality of Alcohol and Drug Abuse Patient Records regulations: The Federal rules restrict any use of the information to criminally investigate or prosecute any alcohol or drug abuse patient.[facility] the event this information is protected by the Federal Confidentiality of Alcohol and Drug Abuse Patient Records regulations: The Federal rules restrict any use of the information to criminally investigate or prosecute any alcohol or drug abuse patient.[facility] the event this information is protected by the Federal Confidentiality of Alcohol and Drug Abuse Patient Records regulations: The Federal rules restrict any use of the information to criminally investigate or prosecute any alcohol or drug abuse patient.[facility] the event this information is protected by the Federal Confidentiality of Alcohol and Drug Abuse Patient Records regulations: The Federal rules restrict any use of the information to criminally investigate or prosecute any alcohol or drug abuse patient.[facility] the event this information is protected by the Federal Confidentiality of Alcohol and Drug Abuse Patient Records regulations: The Federal rules restrict any use of the information to criminally investigate or prosecute any alcohol or drug abuse patient.[facility] the event this information is protected by the Federal Confidentiality of Alcohol and Drug Abuse Patient Records regulations: The Federal rules restrict any use of the information to criminally investigate or prosecute any alcohol or drug abuse patient.[facility] the event this information is protected by the Federal Confidentiality of Alcohol and Drug Abuse Patient Records regulations: The Federal rules restrict any use of the information to criminally investigate or prosecute any alcohol or drug abuse patient.[facility] the event this information is protected by the Federal Confidentiality of Alcohol and Drug Abuse Patient Records regulations: The Federal rules restrict any use of the information to criminally investigate or prosecute any alcohol or drug abuse patient.[facility] Center[facility] the event this information is protected by the Federal Confidentiality of Alcohol and Drug Abuse Patient Records regulations: The Federal rules restrict any use of the information to criminally investigate or prosecute any alcohol or drug abuse patient.[facility] Reason for Visit (unrecogniz ed section and content) Reason Comments Pain, Back Lower back pain x 3 days-started after lifting Reason Comments Medication Request Reason Comments mammogram orders/US Reason Comments Physical Therapy Specialty Diagnoses / Procedures Referred By Contac t Referred To Contact INTERNAL MEDICINE Diagnoses BACK PAIN Procedures NEW PATIENT Self [address] [place] [address] [place] [address] Referral ID Status Reason Start Date Expiration Date Visits Requested Visits Authorized [id number] Authorized Patient Cleared - Qualified [id number] 10/17/2022 01/15/2023 99 99 Reason Comments 4 week follow up - back pain, lab result s Specialty Diagnoses / Procedures Referred By Contac t Referred To Contact INTERNAL MEDICINE Diagnoses BACK PAIN Procedures NEW PATIENT Self [address] [place] [address] Reason Comments Radiology US Specialty Diagnoses / Procedures Referred By Contac t Referred To Contact BR IMAGING Diagnoses Abnormal screening mammogram Procedures US BREAST LTD LEFT US BREAST UNI REAL TIME WITH IMAGE LIMITED Kandice Mario APRN.CLEANING VALIDATION CONSULTANT [address] [place] [address] Br Imaging [address] [place] [address] Referral ID Status Reason Start Date Expiration Date Visits Requested Visits Authorized [id number] Pending Review Auto-Generat ed Referral 10/31/2022 11/30/2023 [...] 2025 End: January 07, 2025 Chayo Black SHOTGUN SHELL REPRINTING UNIT OPERATOR, SHOTGUN SHELL REPRINTING UNIT OPERATOR-C Attending Provider Active Start: January 07, 2025 End: January 07, 2025 Grease Maker Relationship Specialty Start Date End Date Edward Martinez MD [address], [place] [id number] PCP - General Internal Medicine 10/19/22 Grease Maker Relationship Specialty Start Date End Date Edward Martinez MD [address], [place] [id number] PCP - General Internal Medicine 10/19/22 Grease Maker Relationship Specialty Start Date End Date Edward Martinez MD [address] [place], [place] [id number] PCP - General Internal Medicine 10/19/22 Grease Maker Relationship Specialty Start Date End Date Edward Martinez MD [address] [facility] [address] PCP - General Internal Medicine 10/19/22 Grease Maker Relationship Specialty Start Date End Date Edward Martinez MD [address] [place] [address] PCP - General Internal Medicine 10/19/22 Grease Maker Relationship Specialty Start Date End Date Edward Martinez MD [address] [place] [address] PCP - General Internal Medicine 10/19/22 Grease Maker Relationship Specialty Start Date End Date Edward Martinez MD [address] [place] [address] PCP - General Internal Medicine 10/19/22 Grease Maker Relationship Specialty Start Date End Date Edward Martinez MD [address] [place] [address] PCP - General Internal Medicine 10/19/22 Team Status: Active Member Role Status Dates [facility] Family Provider Active No Primary Care Physician Primary Care Provider Active Team Status: Inactive Member Role Status Dates Dr. Chirag Cuadra DO Emergency Provider Active No Primary Care Physician Primary Care Provider Active Team Status: Active Member Role Status Dates [facility] Family Provider Active Dr. Joann Live MD Primary Care Provider Active Team Status: Inactive Member Role Status Dates Dr. Chirag Cuadra DO Attending Provider, Emergency P rocassidy Active No Primary Care Physician Primary Care [...] Dr. Elinor Carrasco MD Attending Provider Active Grease Maker Relationship Specialty Start Date End Date Edward Martinez MD [address] [place] [address] PCP - General Internal Medicine 10/19/22 Team Status: Active Member Role Status Dates Dr. Joann Live MD Primary Care Provider Active Start: August 15, 2024 Shabnam Haynes Attending Provider Active Start: [facility] 2024 Team Status: Active Member Role Status Dates Dr. Joann Live MD Primary Care Provider Active Start: January 07, 2025 Chayo Black SHOTGUN SHELL REPRINTING UNIT OPERATOR, SHOTGUN SHELL REPRINTING UNIT OPERATOR-C Attending Provider Active Start: January 07, 2025 Chayo Black SHOTGUN SHELL REPRINTING UNIT OPERATOR, SHOTGUN SHELL REPRINTING UNIT OPERATOR-C Referring Provider Active Start: January 07, 2025 Team Status: Inactive Member Role Status Dates Dr. Joann Live MD Primary Care Provider Active Start: January 08, 2025 End: January 08, 2025 Dr. Joann Live MD Referring Provider Active Start: January 08, 2025 End: January 08, 2025 Negin Acevedo SHOTGUN SHELL REPRINTING UNIT OPERATOR, SHOTGUN SHELL REPRINTING UNIT OPERATOR-C Attending Provider Active Start: January 08, [...] 2025 End: January 07, 2025 Chayo Black SHOTGUN SHELL REPRINTING UNIT OPERATOR, SHOTGUN SHELL REPRINTING UNIT OPERATOR-C Attending Provider Active Start: January 07, 2025 End: January 07, 2025 Team Status: Inactive Member Role/Relationship Status Dates Dr. Joann Live MD Primary Care Provider Active Start: January 07, 2025 End: January 07, 2025 Chayo Black SHOTGUN SHELL REPRINTING UNIT OPERATOR, SHOTGUN SHELL REPRINTING UNIT OPERATOR-C Attending Provider Active Start: January 07, 2025 End: January 07, 2025 Chayo Black SHOTGUN SHELL REPRINTING UNIT OPERATOR, SHOTGUN SHELL REPRINTING UNIT OPERATOR-C Referring Provider Active Start: January 07, 2025 End: January 07, 2025 Team Status: Inactive Member Role/Relationship Status Dates Dr. Joann Live MD Primary Care Provider Active Start: January 08, 2025 End: January 08, 2025 Dr. Joann Live MD Referring Provider Active Start: January 08, 2025 End: January 08, 2025 Negin Acevedo SHOTGUN SHELL REPRINTING UNIT OPERATOR, SHOTGUN SHELL REPRINTING UNIT OPERATOR-C Attending Provider Active Start: January 08, 2025 End: January 08, 2025 Team Status: Active Member Role/Relationship Status Dates Dr. Joann Live MD Primary Care Provider Active Start: January 08, 2025 Negin Acevedo SHOTGUN SHELL REPRINTING UNIT OPERATOR, SHOTGUN SHELL REPRINTING UNIT OPERATOR-C Attending Provider Active Start: January 08, 2025 Negin Acevedo SHOTGUN SHELL REPRINTING UNIT OPERATOR, SHOTGUN SHELL REPRINTING UNIT OPERATOR-C Referring Provider Active Start: January 08, 2025 Team Status: Inactive Member Role/Relationship Status Dates Dr. Joann Live MD Primary Care Provider Active Start: January 08, 2025 End: January 08, 2025 Negin Acevedo SHOTGUN SHELL REPRINTING UNIT OPERATOR, SHOTGUN SHELL REPRINTING UNIT OPERATOR-C Attending Provider Active Start: January 08, 2025 End: January 08, 2025 Negin Acevedo SHOTGUN SHELL REPRINTING UNIT OPERATOR, SHOTGUN SHELL REPRINTING UNIT OPERATOR-C Referring Provider Active Start: January 08, 2025 End: January 08, 2025 Grease Maker Relationship Specialty Start Date End Date Edward Martinez MD [address] [place] [address] PCP - General Internal Medicine 10/19/22 Kandice Mead APRN.CLEANING VALIDATION CONSULTANT [address] [place] [address] Desizing Machine Back Tender Internal Medicine 06/24/24 Team Status: Inactive Member Role/Relationship Status Dates Dr. Joann Live MD Primary Care Provider Active Start: January 21, 2025 End: January 21, 2025 Negin Acevedo SHOTGUN SHELL REPRINTING UNIT OPERATOR, SHOTGUN SHELL REPRINTING UNIT OPERATOR-C Attending Provider Active Start: January 21, 2025 End: January 21, 2025 Negin Acevedo SHOTGUN SHELL REPRINTING UNIT OPERATOR, SHOTGUN SHELL REPRINTING UNIT OPERATOR-C Referring Provider Active Start: January 21, 2025 End: January 21, 2025 Team Status: Active Member Role/Relationship Status Dates Dr. Joann Live MD Primary Care Provider Active Start: January 23, 2025 Negin Acevedo SHOTGUN SHELL REPRINTING UNIT OPERATOR, SHOTGUN SHELL REPRINTING UNIT OPERATOR-C Attending Provider Active Start: January 23, 2025 Negin Acevedo SHOTGUN SHELL REPRINTING UNIT OPERATOR, SHOTGUN SHELL REPRINTING UNIT OPERATOR-C Referring Provider Active Start: January 23, 2025 Team Status: Active Member Role/Relationship Status Dates Dr. Joann Live MD Primary Care Provider Active Start: January 24, 2025 Negin Acevedo SHOTGUN SHELL REPRINTING UNIT OPERATOR, SHOTGUN SHELL REPRINTING UNIT OPERATOR-C Referring Provider Active Start: January 24, 2025 Negin Acevedo SHOTGUN SHELL REPRINTING UNIT OPERATOR, SHOTGUN SHELL REPRINTING UNIT OPERATOR-C Other Provider Active Start: January 24, 2025 Dr. Brodie Low DO Attending Provider Active S tart: January 24, 2025 Team Status: Inactive Member Role/Relationship Status Dates Dr. Joann Live MD Primary Care Provider Active Start: January 23, 2025 End: January 23, 2025 Negin Acevedo SHOTGUN SHELL REPRINTING UNIT OPERATOR, SHOTGUN SHELL REPRINTING UNIT OPERATOR-C Attending Provider Active Start: January 23, 2025 End: January 23, 2025 Negin Acevedo SHOTGUN SHELL REPRINTING UNIT OPERATOR, SHOTGUN SHELL REPRINTING UNIT OPERATOR-C Referring Provider Active Start: January 23, 2025 End: January 23, 2025 Team Status: Inactive Member Role/Relationship Status Dates Dr. Joann Live MD Primary Care Provider Active Start: January 30, 2025 End: January 30, 2025 Dr. Joann Live MD Referring Provider Active Start: January 30, 2025 End: January 30, 2025 Negin Acevedo SHOTGUN SHELL REPRINTING UNIT OPERATOR, SHOTGUN SHELL REPRINTING UNIT OPERATOR-C Attending Provider Active Start: January 30, 2025 End: January 30, 2025 Team Status: Inactive Member Role/Relationship Status Dates Dr. Joann Live MD Primary Care Provider Active Start: January 07, 2025 End: January 07, 2025 Chayo Black SHOTGUN SHELL REPRINTING UNIT OPERATOR, SHOTGUN SHELL REPRINTING UNIT OPERATOR-C Attending Provider Active Start: January 07, 2025 End: January 07, 2025 Chayo Black SHOTGUN SHELL REPRINTING UNIT OPERATOR, SHOTGUN SHELL REPRINTING UNIT OPERATOR-C Referring Provider Active Start: January 07, 2025 End: January 07, 2025 Team Status: Active Member Role/Relationship Status Dates Dr. Joann Live MD Primary Care Provider Active Start: February 11, 2025 Negin Acevedo SHOTGUN SHELL REPRINTING UNIT OPERATOR, SHOTGUN SHELL REPRINTING UNIT OPERATOR-C Attending Provider Active Start: February 11, 2025 Negin Acevedo SHOTGUN SHELL REPRINTING UNIT OPERATOR, SHOTGUN SHELL REPRINTING UNIT OPERATOR-C Referring Provider Active Start: February 11, 2025 Team Status: Inactive Member Role/Relationship Status Dates Dr. Joann Live MD Primary Care Provider Active Start: February 17, 2025 End: February 17, 2025 Negin Acevedo SHOTGUN SHELL REPRINTING UNIT OPERATOR, SHOTGUN SHELL REPRINTING UNIT OPERATOR-C Referring Provider Active Start: February 17, 2025 End: February 17, 2025 Dr. Ottoniel Cabrera MD Attending Provider Active S tart: February 17, 2025 End: February 17, 2025 Team Status: Inactive Member Role/Relationship Status Dates Dr. Joann Live MD Primary Care Provider Active Start: February 11, 2025 End: February 11, 2025 Negin Acevedo SHOTGUN SHELL REPRINTING UNIT OPERATOR, SHOTGUN SHELL REPRINTING UNIT OPERATOR-C Attending Provider Active Start: February 11, 2025 End: February 11, 2025 Negin Acevedo SHOTGUN SHELL REPRINTING UNIT OPERATOR, SHOTGUN SHELL REPRINTING UNIT OPERATOR-C Referring Provider Active Start: February 11, 2025 End: February 11, 2025 Team Status: Inactive Member Role/Relationship Status Dates Dr. Joann Live MD Primary Care Provider Active Start: January 07, 2025 End: January 07, 2025 Chayo Black SHOTGUN SHELL REPRINTING UNIT OPERATOR, SHOTGUN SHELL REPRINTING UNIT OPERATOR-C Attending Provider Active Start: January 07, 2025 End: January 07, 2025 Chayo Black SHOTGUN SHELL REPRINTING UNIT OPERATOR, SHOTGUN SHELL REPRINTING UNIT OPERATOR-C Referring Provider Active Start: January 07, 2025 End: January 07, 2025 Team Status: Inactive Member Role/Relationship Status Dates Dr. Joann Live MD Primary Care Provider Active Start: January 07, 2025 End: January 07, 2025 Chayo Black SHOTGUN SHELL REPRINTING UNIT OPERATOR, SHOTGUN SHELL REPRINTING UNIT OPERATOR-C Attending Provider Active Start: January 07, 2025 End: January 07, 2025 Chayo Black SHOTGUN SHELL REPRINTING UNIT OPERATOR, SHOTGUN SHELL REPRINTING UNIT OPERATOR-C Referring Provider Active Start: January 07, 2025 End: January 07, 2025 Team Status: Inactive Member Role/Relationship Status Dates Dr. Joann Live MD Primary Care Provider Active Start: January 08, 2025 End: January 08, 2025 Dr. Joann Live MD Referring Provider Active Start: January 08, 2025 End: January 08, 2025 Negin Acevedo SHOTGUN SHELL REPRINTING UNIT OPERATOR, SHOTGUN SHELL REPRINTING UNIT OPERATOR-C Attending Provider Active Start: January 08, 2025 End: January 08, 2025 Team Status: Inactive Member Role/Relationship Status Dates Dr. Joann Live MD Primary Care Provider Active Start: January 08, 2025 End: January 08, 2025 Negin Acevedo SHOTGUN SHELL REPRINTING UNIT OPERATOR, SHOTGUN SHELL REPRINTING UNIT OPERATOR-C Attending Provider Active Start: January 08, 2025 End: January 08, 2025 Negin Acevedo SHOTGUN SHELL REPRINTING UNIT OPERATOR, SHOTGUN SHELL REPRINTING UNIT OPERATOR-C Referring Provider Active Start: January 08, 2025 End: January 08, 2025 Team Status: Inactive Member Role/Relationship Status Dates Dr. Joann Live MD Primary Care Provider Active Start: January 21, 2025 End: January 21, 2025 Negin Acevedo SHOTGUN SHELL REPRINTING UNIT OPERATOR, SHOTGUN SHELL REPRINTING UNIT OPERATOR-C Attending Provider Active Start: January 21, 2025 End: January 21, 2025 Negin Acevedo SHOTGUN SHELL REPRINTING UNIT OPERATOR, SHOTGUN SHELL REPRINTING UNIT OPERATOR-C Referring Provider Active Start: January 21, 2025 End: January 21, 2025 Team Status: Inactive Member Role/Relationship Status Dates Dr. Joann Live MD Primary Care Provider Active Start: January 23, 2025 End: January 23, 2025 Negin Acevedo SHOTGUN SHELL REPRINTING UNIT OPERATOR, SHOTGUN SHELL REPRINTING UNIT OPERATOR-C Attending Provider Active Start: January 23, 2025 End: January 23, 2025 Negin Acevedo SHOTGUN SHELL REPRINTING UNIT OPERATOR, SHOTGUN SHELL REPRINTING UNIT OPERATOR-C Referring Provider Active Start: January 23, 2025 End: January 23, 2025 Team Status: Active Member Role/Relationship Status Dates Dr. Joann Live MD Primary Care Provider Active Start: January 24, 2025 Negin Acevedo SHOTGUN SHELL REPRINTING UNIT OPERATOR, [employer] REPRINTING UNIT OPERATOR-C Referring Provider Active Start: January 24, 2025 Negin Acevedo [employer] REPRINTING UNIT OPERATOR, [employer] REPRINTING UNIT OPERATOR-C Other Provider Active Start: January 24, 2025 Dr. Brodie Low DO Attending Provider Active S tart: January 24, 2025 Team Status: Inactive Member Role/Relationship Status Dates Dr. Joann Live MD Primary Care Provider Active Start: January 30, 2025 End: January 30, 2025 Dr. Joann Live MD Referring Provider Active Start: January 30, 2025 End: January 30, 2025 Negin Acevedo [employer] REPRINTING UNIT OPERATOR, [employer] REPRINTING UNIT OPERATOR-C Attending Provider Active Start: January 30, 2025 End: January 30, 2025 Team Status: Inactive Member Role/Relationship Status Dates Dr. Joann Live MD Primary Care Provider Active Start: February 11, 2025 End: February 11, 2025 Negin Acevedo [employer] REPRINTING UNIT OPERATOR, [employer] REPRINTING UNIT OPERATOR-C Attending Provider Active Start: February 11, 2025 End: February 11, 2025 Negin Acevedo [employer] REPRINTING UNIT OPERATOR, [employer] REPRINTING UNIT OPERATOR-C Referring Provider Active Start: February 11, 2025 End: February 11, 2025 Team Status: Inactive Member Role/Relationship Status Dates Dr. Joann Live MD Primary Care Provider Active Start: February 17, 2025 End: February 17, 2025 Negin Acevedo [employer] REPRINTING UNIT OPERATOR, [employer] REPRINTING UNIT OPERATOR-C Referring Provider Active Start: February 17, 2025 End: February 17, 2025 Dr. Ottoniel Cabrera MD Attending Provider Active S tart: February 17, 2025 End: February 17, 2025 Team Status: Inactive Member Role/Relationship Status Dates Dr. Joann Live MD Primary Care Provider Active Start: February 21, 2025 End: February 21, 2025 Dr. Joann Live MD Referring Provider Active Start: February 21, 2025 End: February 21, 2025 Dr. Karthik Galan DO Attending Provider Active Start: February 21, 2025 End: February 21, 2025 Team Status: Inactive Member Role/Relationship Status Dates Dr. Joann Live MD Primary Care Provider Active Start: February 25, 2025 End: February 25, 2025 Dr. Allan Fam MD Attending Provider Active Start: February 25, 2025 End: February 25, 2025 Dr. Ottoniel Cabrera MD Referring Provider Active S tart: February 25, 2025 End: February 25, 2025 Team Status: Active Member Role/Relationship Status Dates Dr. Joann Live MD Primary Care Provider Active Start: February 28, 2025 Dr. Ottoniel Cabrera MD Attending Provider Active S tart: February 28, 2025 Dr. Ottoniel Cabrera MD Referring Provider Active S tart: February 28, 2025 Team Status: Inactive Member Role/Relationship Status Dates Dr. Joann Live MD Primary Care Provider Active Start: March 03, 2025 End: March 03, 2025 Dr. Allan Fam MD Attending Provider Active Start: March 03, 2025 End: March 03, 2025 Dr. Allan Fam MD Referring Provider Active Start: March 03, 2025 End: March 03, 2025 Team Status: Active Member Role/Relationship Status Dates Dr. Joann Live MD Primary Care Provider Active Start: March 03, 2025 Dr. Allan Fam MD Attending Provider Active Start: March 03, 2025 Dr. Allan Fam MD Referring Provider Active Start: March 03, 2025 Dr. Allan Fam MD Other Provider Active Start: March 03, 2025 Goals (unrecognized section and content) Goals [...] BE BASED ON THE PRIMARY CLINICAL RECORDS. [employer] provides no warranty or guarantee of the accuracy or completeness of information in this document.
== END 2025-03-03 13:13 | disposition home or self-care (01) ==
LOC: SDC 10:43 → AC 10:44
PROVIDERS: PCP Family Medicine; Referring Provider Surgery; Visit Provider Surgery
PROC: (CPT 36561; principal; 2025-03-03 12:00)
DX: C34.11 Malignant neoplasm of upper lobe, right bronchus or lung (principal); C77.9 Secondary and unspecified malignant neoplasm of lymph node, unspecified; F32.A Depression, unspecified; F41.9 Anxiety disorder, unspecified; F17.290 Nicotine dependence, other tobacco product, uncomplicated
CPT/HCPCS: 36561; 00532; 71045; 77001; C1788; J2405

== ENCOUNTER → 2025-04-01 | Outpatient (CLI) | payer MEDICAID, SELFPAY ==
--- NOTE | 2025-04-01 09:54 | VDLE_ITS ---
Reason For Study Reason For Study: RLE PAIN RIGHT LEFT GSV is normal. CFV is compressible, spontaneous, phasic, competent, CFV is compressible, spontaneous, phasic, competent and demonstrates normal augmentation. and demonstrates normal augmentation. FV is compressible, spontaneous, phasic, competent and demonstrates normal augmentation. POP V is compressible, spontaneous, phasic, competent and demonstrates normal augmentation. T/P Trunk is compressible. PTV is compressible. RT PerV is compressible. Procedure This is a venous duplex using B-mode, color flow and spectral Doppler. Exam performed in department. A preliminary report was called and/or faxed to Chayo Black @ [phone]. VL/Venous Duplex US, Unilateral Interpretation Summary Deep veins of the right lower extremity are patent and compressible segmentally . There is no evidence of right lower extremity deep vein thrombosis. Valvular competence appears intact within the p roximal deep venous system on the right . The right great saphenous vein appears patent and compressible segmentally. The left common femoral vein is patent and compressible . Ordering Physician: Chayo Black Referring Physician: Joann Live Performed By: Maggie Tavarez, JESE, RVT
== END | disposition home or self-care (01) ==
LOC: CVS 09:54
PROVIDERS: PCP Family Medicine; Referring Provider Nurse Practitioner Family; Visit Provider Nurse Practitioner Family
DX: M79.661 Pain in right lower leg (principal); C77.1 Secondary and unspecified malignant neoplasm of intrathoracic lymph nodes; C34.11 Malignant neoplasm of upper lobe, right bronchus or lung; Z91.89 Other specified personal risk factors, not elsewhere classified
CPT/HCPCS: 36591; 80053; 83735; 85025; 93971; A4216

== ENCOUNTER → 2025-04-22 | Outpatient (CLI) | payer MEDICAID, SELFPAY | END | disposition home or self-care (01) | LOC: US 08:01 | PROVIDERS: PCP Family Medicine; Referring Provider Nurse Practitioner Family; Visit Provider Nurse Practitioner Family | DX: R79.89 Other specified abnormal findings of blood chemistry (principal); R10.11 Right upper quadrant pain | CPT/HCPCS: 76705 ==

== ENCOUNTER → 2025-05-25 | Outpatient (CLI) | payer MEDICAID, SELFPAY | END | disposition home or self-care (01) | LOC: LABSPEC 05-26 07:48 | PROVIDERS: PCP Family Medicine; Visit Provider Physician Assistant | DX: J02.9 Acute pharyngitis, unspecified (principal) | CPT/HCPCS: 87070 ==

== ENCOUNTER → 2025-06-10 | Outpatient (CLI) | payer MEDICAID, SELFPAY ==
--- NOTE | 2025-06-10 07:13 | ECHOD_ITS ---
Reason For Study Reason For Study: Pre Op evaluation for lung resection Procedure This was a 2D Doppler, Color Flow transthoracic echocardiogram. Myocardial strain analysis was performed in this exam to aid in the assessment of cardiac function. Exam performed in department. Left Ventricle Normal LV size. The global longitudinal strain = -13.2% (abnormal). Stage 1 diastolic dysfunction. Left ventricular systolic function is lower limits of normal. No regional wall motion abnormalities noted. Right Ventricle Normal RV size. Normal systolic function. Atria Normal left atrium. Normal right atrium. Mitral Valve Normal mitral valve. Tricuspid Valve Normal tricuspid valve. Aortic Valve Trisinus/trileaflet aortic valve. Pulmonic Valve Normal pulmonic valve. Great Vessels Normal aortic root. The pulmonary artery is normal size. Inferior vena cava collapse with respiration. Pericardium/Pleural No pericardial effusion. MMode/2D Measurements & Calculations LVIDd: 4.6 cm IVSd: 0.91 cm Ao root diam: 2.8 cm LVIDs: 3.4 cm LVPWd: 0.79 cm RVDd: 3.3 cm FS: 25.3 % LAV(MOD-bp): 36.0 ml LVAd ap4: 25.2 cm2 SV(MOD-sp4): 37.9 ml LAV(MOD-bp) Indexed: 19.9 ml/m2 LVLd ap4: 7.3 cm SI(MOD-sp4): 21.0 ml/m2 LAV(MOD-sp2): 38.9 ml EDV(MOD-sp4): 73.2 ml LAV(MOD-sp4): 31.2 ml EDV(sp4-el): 74.3 ml LVAs ap4: 16.6 cm2 LVLs ap4: 6.7 cm ESV(MOD-sp4): 35.4 ml ESV(sp4-el): 34.7 ml EF(MOD-sp4): 51.7 % EF(sp4-el): 53.3 % SV(sp4-el): 39.6 ml LA A4 area: 13.6 cm2 LA dimension(2D): 2.8 cm RA A4 area: 13.4 cm2 TAPSE: 2.1 cm Time Measurements MV dec time: 0.21 sec Doppler Measurements & Calculations MV E max robb: 53.0 cm/sec Lat Peak E' Robb: 8.4 cm/sec Med Peak E' Robb: 8.3 cm/sec MV A max robb: 61.3 cm/sec E/E' lat: 6.3 E/E' med: 6.4 MV E/A: 0.86 MV V2 max: 66.9 cm/sec MV P1/2t max robb: 54.4 cm/sec Ao V2 max: 120.1 cm/sec MV max P.8 mmHg MV P1/2t: 68.3 msec Ao max P.8 mmHg MV V2 mean: 40.2 cm/sec Ao V2 mean: 88.4 cm/sec MV mean P.75 mmHg MV dec slope: 233.1 cm/sec2 Ao mean P.5 mmHg MV V2 VTI: 19.1 cm MVA(P1/2t): 3.2 cm2 Ao V2 VTI: 23.7 cm AV (velocity ratio): 0.66 LV V1 max: 93.7 cm/sec PA V2 max: 78.7 cm/sec LV V1 max P.5 mmHg LV V1 mean P.0 mmHg LV V1 mean: 66.5 cm/sec LV V1 VTI: 15.6 cm ECHO/Echo Complete Interpretation Summary Normal LV size. The global longitudinal strain = -13.2% (abnormal). Stage 1 diastolic dysfunction. Left ventricular systolic function is lower limits of normal. Ordering Physician: NIMCO MOSS Referring Physician: Joann Live Performed By: Uvaldo Conti RCS
--- OUTSIDE RECORDS SUMMARY | 2025-06-10 07:15 | XMS RPT_ITS | CCD ---
Author Organization [facility] Care Team Providers Care Oil Dispatcher Name Role Phone Arriaga KEY PUNCH TEACHER, Virginie E Unavailable Unavailable Arriaga KEY PUNCH TEACHER, Vigrinie E Unavailable Unavailable Unavailable Primary Care Provider Leonor e Edward Martinez MD Primary Care Provider [...] Joann Live MD Primary Care Provider Wayne CAN CRIMPER-C, Chayo Attending Provider Wayne CAN CRIMPER-C, Chayo Referring Provider Kristina CAN CRIMPER-CNegin Attending Provider Dr. Joann Live MD Primary Care Provider Dr. Mami Live MDh Referring Provider Kristina CAN CRIMPER-C, Negin Referring Provider [place] RODBUSTER.CUSHION COVER INSPECTOR, Kandice M Unavailable Kristina CAN CRIMPER-C, Negin Other Provider Devante MARTIN, Dr. Calloway Attending Provider Wayne CAN CRIMPER-C, Chayo Referring Provider Rick FRANCOIS, Dr. Alcazar Attending Provider Maria T FRANCOIS, Dr. David Primary Care Provider Maria T FRANCOIS, Dr. David Referring Provider Adama MARTIN, Dr. Angeles Attending Provider Sarwat FRANCOIS, Dr. Lemus Attending Provider Rick FRANCOIS, Dr. Alcazar Referring Provider Sarwat FRANCOIS, Dr. Lemus Referring Provider Sarwat FRANCOIS, Dr. Lemus Other Provider Karl ROCHE, Aleksandra Unavailable Unavailable Mauri Tyler DO Unavailable Dr. Mauri Tyler DO Referring Provider Maria T FRANCOIS, Dr. David Primary Care Physician Wayne CAN CRIMPER-C, Chayo Attending Physician Kristina CAN CRIMPER-C, Negin Attending Physician Kristina CAN CRIMPER-C, Negin Nurse Practitioner Devante MARTIN, Dr. Calloway Attending Physician Dr. Ottoniel Cabrera MD Attending Physician Dr. Mauri Tyler DO Attending Physician Sarwat FRANCOIS, Dr. Lemus Attending Physician Sarwat FRANCOIS, Dr. Lemus Nurse Practitioner Nelia FRANCOIS, Dr. Augustine Crump Attending Physician Adama MARTIN, Dr. Angeles Referring Provider Dr. Mauri Tyler DO Referring Provider Maria T FRANCOIS, Dr. David Primary Care Physician Acevedo CAN CRIMPER-C, Negin Attending Physician Acevedo CAN CRIMPER-C, Negin Referring Provider Maria T FRANCOIS, Dr. David Referring Provider Wayne CAN CRIMPER-C, Chayo Attending Physician Wayne CAN CRIMPER-C, Chayo Referring Provider Adama MARTIN, Dr. Angeles Referring Provider MAURI TYLER Referring Unavailable BRYANNA MARTINEZ Attending Unavailable BRYANNA MARTINEZ Referring Unavailable BRYANNA MARTINEZ Attending Unavailable SELF, SELF Referring Unavailable BRYANNA MARTINEZ Attending Unavailable Wayne CAN CRIMPER, Chayo Referring Unavailable Wayne CAN CRIMPER, Chayo Attending Unavailable [facility] Primary Care Unavailable Acevedo CAN CRIMPER, Negin Referring Unavailable Acevedo CAN CRIMPER, Negin Attending Unavailable [facility] Primary Care Unavailable Wayne CAN CRIMPER, Chayo Referring Unavailable [facility] Primary Care Unavailable Wayne CAN CRIMPER, Chayo Attending Unavailable Wayne CAN CRIMPER, Chayo Attending Unavailable [facility] Primary Care Unavailable [facility], [place] Referring Unavailable Acevedo CAN CRIMPER, Negin Attending Unavailable Acevedo CAN CRIMPER, Negin Referring Unavailable [facility] Primary Care Unavailable Acevedo CAN CRIMPER, Negin Referring Unavailable Acevedo CAN CRIMPER, Negin Attending Unavailable [facility] Primary Care Unavailable Mauri Tyler Attending Unavailable [facility] Primary Care Unavailable [facility], [place] Primary Care Unavailable Reuben Martinez Attending Unavailable Wayne CAN CRIMPER, Chayo Referring Unavailable Wayne CAN CRIMPER, Chayo Attending Unavailable [facility] Primary Care Unavailable Wayne CAN CRIMPER, Chayo Attending Unavailable [facility] Primary Care Unavailable [facility], [place] Referring Unavailable [facility] Primary Care Unavailable [facility], [place] Referring Unavailable Reuben Martinez Attending Unavailable Ottoniel Cabrera Attending Unavailable Miedel, Joann Primary Care Unavailable Miedel, Joann Referring Unavailable Acevedo CAN CRIMPER, Negin Attending Unavailable Miedel, Joann Primary Care Unavailable Miedel, Joann Referring Unavailable Ottoniel Cabrera Referring Unavailable Ottoniel Cabrera Attending Unavailable Miedel, Joann Primary Care Unavailable Kristina CAN CRIMPER, Negin Attending Unavailable Acevedo CAN CRIMPER, Negin Referring Unavailable Miedel, Joann Primary Care Unavailable Miedel, Joann Primary Care Unavailable Miedel, Joann Referring Unavailable Miedel, Joann Attending Unavailable Miedel, Joann Primary Care Unavailable KASSY CLEMENTS Attending Unavailable KASSY CLEMENTS Referring Unavailable Acevedo CAN CRIMPER, Negin Attending Unavailable Acevedo CAN CRIMPER, Negin Referring Unavailable Miedel, Joann Primary Care Unavailable Ottoniel Cabrera Attending Unavailable [facility], [place] Primary Care Unavailable Miedel, Joann Referring Unavailable Wayne CAN CRIMPER, Chayo Attending Unavailable Oredel, Joann Referring Unavailable Oredel, Joann Primary Care Unavailable Oredel, Joann Primary Care Unavailable Miedel, Joann Referring Unavailable Ottoniel Cabrera Attending Unavailable Mauri Tyler Referring Unavailable Mauri Tyler Attending [facility] Unavailable Allan Fam Referring Unavailable Allan Fam Attending Unavailable Oredel, Joann Primary Care Unavailable Ottoniel Cabrera Attending Unavailable Acevedo CAN CRIMPER, Negin Referring Unavailable Oredel, Joann Primary Care Unavailable Kristina CAN CRIMPER, Negin Attending Unavailable Acevedo CAN CRIMPER, Negin Referring Unavailable Oredel, Joann Primary Care Unavailable Kristina CAN CRIMPER, Negin Attending Unavailable [facility], Joann Primary Care Unavailable Miedel, Joann Referring Unavailable Mauri Tyler Attending Unavailable [facility], Joann Primary Care Unavailable Miedel, Joann Referring Unavailable Wayne CAN CRIMPER, Chayo Attending Unavailable Wayne CAN CRIMPER, Chayo Referring Unavailable Oredel, Joann Primary Care Unavailable Ottoniel Cabrera Referring Unavailable Allan Fam Attending [facility]available [facility] Primary [facility] Unavailable Wayne CAN CRIMPER, Chayo Attending Unavailable Oredel, Joann Primary Care Unavailable Miedel, Joann Referring Unavailable Wayne CAN CRIMPER, Chayo Attending Unavailable O[facility], Joann Primary Care Unavailable Miedel, Joann Referring Unavailable Acevedo CAN CRIMPER, Negin Consulting Unavailable Kristina CAN CRIMPER, Negin Referring Unavailable Brodie Low Attending Unavailable [facility] Primary Care Unavailable Allan Fam Consulting Unavailable Allan Fam Referring Unavailable Allan Fam Attending Unavailable [facility] Primary Care Unavailable [facility] Primary Care Unavailable Justus Robertson Consulting Unavailable [facility] Referring Unavailable Justus Robertson Attending Unavailable [facility] Primary Care Unavailable Shabnam Haynes Attending Unavailable Brodie Low Attending Unavailable [facility] Unavailable [facility] Referring Unavailable Justus Robertson Attending Unavailable Allergies Allergy Classification Reported Allergen(s) Allergy Type Date of Onset Reaction(s) Facility (20 sources) Sulfamethoxazole Drug Allergy 07-08-20 23 Nausea/Vom/Azalia rrhea [facility] (20 sources) Trimethoprim Drug Allergy 07-08-20 23 Diarrhea, Nausea and Vomiting [facility] (2 sources) Sulfamethoxazole Propensity to adverse reactions to drug 03-11-20 Diarrhea, Nausea and Vomiting [facility] (1 source) Sulfamethoxazole Drug Allergy 05-24-20 [facility] (1 source) Trimethoprim Drug Allergy 05-24-20 [facility] Medications Current Medications Medication Drug Class(es) Dates Sig (Normalized) Sig (Original) [id number] 200 actuat albuterol 0.09 mg/actuat metered dose inhaler (20 sources) beta2-Adrenergic Agonist Start: 01-08-2025 take 2 puff(s) by inhalation every four hours as needed for wheezing Albuterol 108 (90 Base) MCG/ACT Aero Soln inhaler Inhale 2 puffs every 4 hours as needed for Shortness of Breath or Wheezing. 01/08/2025 Active Start: 01-08-2025 Albuterol Sulf ate (Ventolin Hfa) 90 mcg/actuation HFA aerosol inhaler Active 2 NMA INHALATION Q4H as needed for shortness of breath or wheezing 18 January 08, 2025 12:00am Mass of upper lobe of right lung Other nonspecific abnormal finding of lung field Complies with drug therapy B-Complex With Vitamin C (4 sources) Start: 01-08-2017 B-Complex With Vitamin C Active 1 EACH PO DAILY January 08, 2017 12:00am Start: 01-08-2017 B-Complex With Vitamin C Active 1 EACH PO DAILY January 07, 2017 11:00pm dexamethasone 4 mg oral tablet (7 sources) Corticosteroid Start: 03-18-2025 Dexamethasone 4 mg tablet Active 8 mg PO .COMPLEX 16 0 March 18, 2025 12:00am 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 Malignant neoplasm of upper lobe, right bronchus or lung Secondary and unspecified malignant neoplasm of intrathoracic lymph nodes 8 mg orally ONLY on days 2 and 3 of chemotherapy cycle Complies with drug therapy diclofenac sodium 0.01 mg/mg topical gel (20 sources) Nonsteroidal Anti-inflammatory Drug Start: 08-15-2024 apply 2 g topically four times daily as needed for pain Diclofenac Sodium 1 % gel Active 2 g TOPICAL .qid as needed for pain August 15, 2024 1:00am Complies with drug therapy 12 hr guaiFENesin 600 mg extended release oral tablet (1 source) take 1 tablet by mouth twice daily guaiFENesin 600 MG Tab SR 12 HR tablet SR Take 1 tablet by mouth 2 times daily. 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 Malignant neoplasm of unspecified part of unspecified bronchus or lung Secondary and unspecified malignant neoplasm of intrathoracic lymph nodes Complies with drug therapy Start: 03-18-2025 Lidocaine-Pril ocaine 2.5-2.5 % cream Active 1 NMA TOPICAL ONCE as needed for port access March 18, 2025 12:00am 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 Active LORazepam 0.5 mg oral tablet (14 sources) Benzodiazepine Start: 2024 End: 2024 LORazepam 0.5 MG tablet Take 1 tablet by mouth. 02/18/2025 Active Magnesium Aspart,Citrate,Oxide 400 mg magnesium capsule (1 source) Start: 2024 take 1 capsule by mouth once daily Magnesium Aspart,Citrate,Oxide 400 mg magnesium capsule Active 400 mg PO daily August 15, 2024 1:00am methylPREDNISolone (1 source) Corticosteroid Start: 2022 End: 2022 methylPREDNISolone (MEDROL, ANGELA,) 4 mg Dose-Pack Follow dosing instructions, take with food. 21 tablet 0 10/18/2022 10/24/2022 Active Comment on above: Follow dosing instru ctions, take with food. Multiple Vitamin (Multi-Vitamin) tablet (2 sources) take 1 tablet by mouth once daily Multiple Vitamin (Multi-Vitamin) tablet Take 1 tablet by mouth daily. Active multivitamin tablet (12 sources) take 1 tablet by mouth once daily multivitamin tablet Take 1 tablet by mouth once daily. Active take 1 tablet by mouth once luis f y multivitamin tablet Take 1 tablet by mouth once daily. 0 Active Comment on above: Take 1 tablet by kenia th once daily. 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 4000 mL 0 11/15/2022 11/15/2022 Active Comment on above: Take 4,000 mL by kenia th one time only for 1 dose. 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 Nausea with vomiting, unspecified Adverse effect of antineoplastic and immunosuppressive drugs, initial encounter Malignant neoplasm of unspecified part of unspecified bronchus or lung Secondary and unspecified malignant neoplasm of intrathoracic lymph nodes Complies with drug therapy Completed/Discontinued Medications Medication Drug Class(es) Dates Sig (Normalized) Sig (Original) acetaminophen 500 mg oral tablet (7 sources) Start: 03-24-2025 End: 04-01-2025 take 2 tablets by mouth once daily Acetaminophen (Tylenol Extra Strength) 500 mg tablet Discontinued 1000 mg PO DAILY March 24, 2025 12:00am April 01, 2025 9:06am Pain acetaminophen 325 mg / oxyCODONE hydrochloride 5 mg oral tablet (20 sources) Opioid Agonist Start: 07-08-2023 End: 08-15-2024 Oxycodone-Acetamino phen 5-325 mg tablet Discontinued 1 {tbl} PO EVERY 6 HOURS NEEDED as needed for Pain 12 3 July 08, 2023 August 15, 2024 12:38pm Cervical radiculopathy Radiculopathy, cervical region Start: 07-08-2023 take 1 tablet by kenia th every six hours as needed Oxycodone-Acetaminophen Active 1 TABLET PO EVERY 6 HOURS NEEDED 12 3 July 08, 2023 Amox-Clav 875-125 mg Tablet (20 sources) Start: 07-04-2019 End: 08-15-2024 Amox-Clav 875-125 [...] B-Complex With Vitamin C 1 EACH tablet (20 sources) Start : 01-08 End: 08-15 take [...] Comment on above: Take 1 capsule by [facility] three times daily as needed for Cough. cetirizine hydrochloride 10 mg oral tablet (20 sources) Histamine-1 Receptor Antagonist Start : 01-20 ZYRTEC ALLERGY 10 MG CAPS take as directed CETIRIZINE HCL [id number] Virginie Arriaga LPN Start: 11-21-2015 End: 03-04-2025 take 1 capsule by mouth once daily Cetirizine (Zyrtec) 10 MG capsule Discontinued 10 mg PO DAILY November 21, 2015 12:00am March 04, 2025 3:52pm take 1 tablet by [facility] once daily cetirizine (ZYRTEC) 5 mg tablet Take 5 mg by mouth once daily. 0 Active Comment on above: Take 5 mg by mouth o nce daily. Collagen Peptide powder (20 sources) Start: 01-07-2025 End: 04-01-2025 Collagen Peptide powder Discontinued 1 tbsp PO DAILY January 07, 2025 12:00am April 01, 2025 9:06am On Hold: ther 1 tbsp in her coffee Start: 01-07-2025 Collagen Pepti de powder Active 1 tbsp PO DAILY January 07, 2025 12:00am 1 tbsp in her coffee Start: 01-07-2025 Collagen Pepti de powder Active PO DAILY January 07, 2025 12:00am cyclobenzaprine hydrochloride 10 mg oral tablet (20 sources) Muscle Relaxant Start: 07-08-2023 End: 08-15-2024 take 1 tablet by mouth three times daily as needed for muscle spasms Cyclobenzaprine 10 mg tablet Discontinued 10 mg PO THREE TIMES A DAY as needed for Muscle Spasm 15 0 July 08, 2023 1:00am August 15, 2024 12:37pm doxycycline hyclate 100 mg oral capsule (2 sources) Tetracycline-class Drug Start: 01-20-2017 DOXYCYCLINE HYCLATE 100 MG CAPS BID DOXYCYCLINE HYCLATE [id number] Virginie Arriaga LPN ibuprofen 200 mg oral tablet (20 sources) Nonsteroidal Anti-inflammatory Drug Start: 08-15-2024 End: 04-01-2025 take 1 tablet by mouth every six hours as needed for pain Ibuprofen 200 mg tablet Discontinued 200 mg PO EVERY 6 HOURS as needed for pain August 15, 2024 1:00am April 01, 2025 9:06am On Hold: pt held take 1 tablet by kenia every six hours as needed Ibuprofen 100 MG tablet Take 1 tablet by mouth Every 6 hours as needed. Active Comment on above: Take 100 mg by mouth every 6 hours as needed. Magnesium (20 sources) Start: 01-07-2025 End: 04-01-2025 take 1 tablet by mouth once daily Magnesium 250 mg tablet Discontinued 250 mg PO daily January 07, 2025 12:00am April 01, 2025 9:07am On Hold: per patient Start: 01-07-2025 take 1 tablet by kenia th once daily Magnesium 250 mg tablet Active 250 mg PO daily January 07, 2025 12:00am Start: 10-17-2024 End: 01-07-2025 magnesium spray Discontinued AT BEDTIME October 17, 2024 12:00am January 07, 2025 12:39pm Start: 10-17-2024 magnesium spra y Active AT BEDTIME October 17, 2024 12:00am take 1 capsule by mo [facility] once daily Magnesium 250 MG capsule Take 250 mg by mouth daily. Active methocarbamol 500 mg oral tablet (2 sources) Muscle Relaxant Start: 10-18-2022 End: 04-07-2023 take 1 tablet by mouth every six hours as needed methocarbamol (ROBAXIN) 500 mg tablet Take 1 tablet by mouth every 6 hours as needed (Pain) for up to 3 days. 12 tablet 10/18/2022 10/21/2022 Comment on above: Take 1 tablet by kenia th every 6 hours as needed (Pain) for up to 3 days. MULTIPLE VITAMINS-MINERALS (2 sources) Start: 01-20-2017 DAILY MULTIVIT DURÁN CAPS take as directed MULTIPLE VITAMINS-MINERALS [id number] Virginie Arriaga KEY PUNCH TEACHER Multivitamin (Daily Multiple Vitamin) 1 EACH tablet (20 sources) Start: 11-24-2015 End: 04-01-2025 take 1 tablet by mouth once daily Multivitamin (Daily Multiple Vitamin) 1 EACH tablet Discontinued 1 NMA PO DAILY November 24, 2015 12:00am April 01, 2025 9:07am On Hold: per patient Start: 11-24-2015 take 1 tablet by kenia th once daily Multivitamin (Daily Multiple Vitamin) 1 EACH tablet Active 1 NMA PO DAILY November 24, 2015 12:00am Start: 11-24-2015 take 1 tablet by kenia th once daily Multivitamin (Daily Multiple Vitamin) 1 EACH tablet Active 1 EACH PO DAILY November 24, 2015 12:00am Start: 11-24-2015 take 1 tablet by kenia once daily Multivitamin (Daily Multiple Vitamin) 1 EACH tablet Active 1 EACH PO DAILY November 23, 2015 11:00pm naproxen 500 mg oral tablet (20 sources) Nonsteroidal Anti-inflammatory Drug Start: 07-08-2023 End: 08-15-2024 take 1 tablet by mouth twice daily Naproxen 500 mg tablet Discontinued 500 mg PO TWICE A DAY 14 July 08, 2023 1:00am August 15, 2024 12:37pm predniSONE 20 mg oral tablet (20 sources) Start: 01-08-2017 End: 08-15-2024 take 2 tablets by mouth once daily [...] 1 tablet by kenia th every evening. Turmeric extract (20 sources) Start: 5 End: 5 take 1 capsule by mouth once daily Turmeric 400 mg capsule Discontinued 400 mg PO daily August 15, 2024 1:00am April 01, 2025 9:07am On Hold: per patient Start: 08-15-2024 take 1 capsule by mo uth once daily Turmeric 400 mg capsule Active 400 mg PO daily August 15, 2024 1:00am take 400 mg by mouth once daily Turmeric (QC TUMERIC COMPLEX PO) Take 400 mg by mouth daily. 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 Squamous cell lung c ancer, Tumor 4.5cm, R superior sulcus, R hilar adenopathy.Stage IIB(cT2b cN1 cM0). Squamous cell lung c ancer, Tumor 4.5cm, R superior sulcus, R hilar adenopathy.Stage IIB(cT2b cN1 cM0). PD-L1 positive.Seen by Thoracic surgery, Neoadjuvant therapy with Chemotherapy and Immunotherapy was suggested.Comes to start therapy.Counts and chemistry reviewed, OK for therapy. Squamous cell lung c ancer, Tumor 4.5cm, R superior sulcus, R hilar adenopathy.Stage IIB(cT2b cN1 cM0). PD-L1 positive.Started Neoadjuvant therapy with Chemotherapy and Immunotherapy-Carboplatin/Taxol and Imfinzi on 03/24/2025.Comes for C2.ALT and AST are elevated >1-3 times normal.ANC 1.2. Squamous cell lung c ancer, Tumor 4.5cm, R superior sulcus, R hilar adenopathy.Stage IIB(cT2b cN1 cM0). PD-L1 positive.Started Neoadjuvant therapy with Chemotherapy and Immunotherapy-Carboplatin/Taxol and Imfinzi on 03/24/2025. Squamous cell lung c ancer, Tumor 4.5cm, R superior sulcus, R hilar adenopathy.Stage IIB(cT2b cN1 cM0). PD-L1 positive.Started Neoadjuvant therapy with Chemotherapy and Immunotherapy-Carboplatin/Taxol and Imfinzi on 03/24/2025.Comes for C3. Counts and chemistry reviewed, Ok for therapy. Cancer of bronchus; lung (1 source) History of malignant neoplasm of thoracic cavity structure; Translations: [Personal history of other malignant neoplasm of bronchus and lung] 03-17-2025 Episodic Cardiac dysrhythmias (1 source) Unspecified atrial fibrillation; Translations: [Unspecified atrial fibrillation] Onset: 5 Chronic Diseases of white blood cells (20 sources) Neutropenia; Translations: [Neutropenia, unspecified] Onset: 5 Chronic Comment on above: ANC 1.2 E Codes: Adverse effects of medical drugs (1 source) Adverse effect of antineoplastic and immunosuppressive drugs, initial encounter; Translations: [Adverse effect of antineoplastic and immunosuppressive drugs, initial encounter] Onset: 5 Episodic Headache; including migraine (20 sources) Morning headache; Translations: [Morning headache] 01-08-2025 Episodic Headache; including migraine (1 source) Headache; including migraine; Translations: [Headache, unspecified] Onset: 5 Immunizations and screening for infectious disease (20 sources) Patient encounter status; Translations: [Encounter for immunization] Episodic Comment on above: Abnormal Liver enzym es. Liver enzymes has de creased. Maintenance chemotherapy; radiotherapy (20 sources) Patient encounter status; Translations: [Encounter for antineoplastic chemotherapy] Onset: 5 03-24-2025 Chronic Comment on above: ANC 1.2 today. Nonmalignant breast conditions (20 sources) Abscess of breast; Translations: [Abscess of the breast and nipple] 07-05-2019 Episodic Other aftercare (20 sources) Wound finding; Translations: [Encounter for other specified aftercare] 10-30-2016 Episodic Other aftercare (20 sources) Admission statuses; Translations: [Encounter for other specified aftercare] 11-27-2015 Episodic Other circulatory disease (1 source) Other specified symptoms and signs involving the circulatory and respiratory systems; Translations: [Other specified symptoms and signs involving the circulatory and respiratory systems] Onset: Episodic Other connective tissue disease (20 sources) Spasm of cervical paraspinous muscle; Translations: [Other muscle spasm] 07-08-2023 Episodic Other connective tissue disease (1 source) Pain in calf; Translations: [Pain in right lower leg] 04-01-2025 Episodic Other connective tissue disease (10 sources) Pain of right calf; Translations: [Pain in right lower leg] 04-01-2025 Episodic Other connective tissue disease (1 source) Pain in right lower leg; Translations: [Pain in right lower leg] Onset: Episodic Other gastrointestinal disorders (2 sources) Constipation; Translations: [Constipation, unspecified] 05-05-2025 Episodic Other lower respiratory disease (20 sources) Dyspnea; Translations: [Shortness of breath] 01-08-2025 Episodic Other lower respiratory disease (20 sources) Lung mass; Translations: [Other nonspecific abnormal finding of lung field] 01-08-2025 Episodic Comment on above: 4.5 x 3.5 x 2.9 cm R UL Other lower respiratory disease (20 sources) Hypoxia; Translations: [Hypoxemia] 01-08-2025 Episodic Other lower respiratory disease (1 source) Solitary pulmonary nodule; Translations: [Solitary pulmonary nodule] Onset: Episodic Other screening for suspected conditions (not mental disorders or infectious disease) (20 sources) Mammography abnormal; Translations: [Other abnormal and inconclusive findings on diagnostic imaging of breast] Onset: Episodic Comment on above: LFT has decreased, O k for therapy. Other skin disorders (1 source) Disorder of skin of lower limb; Translations: [Disorder of the skin and subcutaneous tissue, unspecified] Episodic Other skin disorders (10 sources) Eruption; Translations: [Rash and other nonspecific skin eruption] 04-07-2025 Episodic Other upper respiratory infections (1 source) Acute pharyngitis, unspecified; Translations: [Acute pharyngitis, unspecified] Onset: 5 Episodic Residual codes; unclassified (6 sources) At risk of deep vein thrombosis; Translations: [Other specified personal risk factors, not elsewhere classified] 04-01-2025 Episodic Residual codes; unclassified (1 source) Other specified personal risk factors, not elsewhere classified; Translations: [Other specified personal risk factors, not elsewhere classified] Onset: 5 Episodic Secondary malignancies (20 sources) Secondary malignant neoplasm of lymph node; Translations: [Secondary and unspecified malignant neoplasm of lymph node, unspecified] 02-17-2025 Chronic Secondary malignancies (2 sources) Secondary and unspecified malignant neoplasm of intrathoracic lymph nodes; Translations: [Secondary and unspecified malignant neoplasm of intrathoracic lymph nodes] Onset: 5 Chronic Spondylosis; intervertebral disc disorders; other back problems (20 sources) Acute back pain with sciatica; Translations: [Lumbago with sciatica, right side] Onset: 3 Episodic Substance-related disorders (12 sources) Tobacco user; Translations: [Nicotine dependence, unspecified, uncomplicated] Onset: 6 12-31-2015 Chronic Unclassified (18 sources) 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 Unclassified (17 sources) C34.11 - Malignant neoplasm of upper lobe, right bronchus or lung Unclassified (14 sources) 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 Unclassified (20 sources) C34.11 - Malignant neoplasm of upper lobe, right bronchus or lung,C77.1 - Secondary and unspecified malignant neoplasm of intrathoracic lymph nodes Unclassified (2 sources) 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 Unclassified (7 sources) C34.11 - Malignant neoplasm of upper lobe, right bronchus or lung,C34.90 - Malignant neoplasm of unspecified part of unspecified bronchus or lung,C77.1 - Secondary and unspecified malignant neoplasm of intrathoracic lymph nodes Unclassified (5 sources) D70.9 - Neutropenia, unspecified Unclassified (2 sources) New Patient; Translations: [New Patient] Onset: 5 Unclassified (1 source) Encounter for other specified prophylactic measures; Translations: [Encounter for other specified prophylactic measures] Onset: 5 Past or Other Problems Problem Classification Problem Date Documented Date Episodic/Chronic Alcohol-related disorders (10 sources) 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; Translations: [Alcohol use, unspecified with alcohol-induced sleep disorder] Onset: 10-27-2022 Episodic Mood disorders (2 sources) Mood disorders Onset: 03-12-2025 Resolved: 05-21-2025 03-12-2025 Noninfectious gastroenteritis (4 sources) Chronic diarrhea; Translations: [Noninfective gastroenteritis and colitis, unspecified] Onset: 06-23-2016 Resolved: 10-19-2022 06-23-2016 Episodic Other liver diseases (6 sources) Elevated liver enzymes level; Translations: [Abnormal levels of other serum enzymes] Onset: 11-15-2022 Episodic Other lower respiratory disease (2 sources) [...] Translations: [Dyspnea, unspecified] Onset: 01-08-2025 Episodic Other nervous system disorders (2 sources) Other disturbances of skin sensation; Translations: [Other disturbances of skin sensation] Onset: 01-20-2017 01-20-2017 Episodic Residual codes; unclassified (10 sources) Alcoholism; Translations: [Alcohol use disorder] Onset: 10-19-2022 10-19-2022 Episodic Residual codes; unclassified (1 source) Other specified conditions influencing health status; Translations: [Alcohol use disorder] Onset: 10-19-2022 10-19-2022 Episodic Screening and history of mental health and substance abuse codes (20 sources) Tobacco use and exposure - finding; Translations: [Personal history of nicotine dependence] Onset: 02-17-2025 01-07-2025 Episodic Unclassified (2 sources) Contact with and (suspected) exposure to other hazardous, chiefly nonmedicinal, chemicals; Translations: [Contact with and (suspected) exposure to other hazardous, chiefly nonmedicinal, chemicals] Onset: 01-20-2017 01-20-2017 Episodic Unclassified (2 sources) Patient encounter status 12-24-2024 Results Test Name Value Interpretation Reference Range Facility Urgent Care Visit Reporton 1 07-24-2024 Urgent Care Visit Report Normal [facility] Absolute lymphocyte countOrd ered By: [facility] on 05-12-2025 Lymphocytes Auto (Unsp spec) [#/Vol] 2.24 10*3/uL 0.83-4.51 [facility] Absolute neutrophil countOrd ered By: [facility] on 05-12-2025 Neutrophils (Bld) [#/Vol] 3.8 10*3/uL 2.0-7.7 [facility] Anion gap in Serum or Plasma Ordered By: Ottoniel [facility] on 05-12-2025 Anion gap [Moles/Vol] 11 mmol/L 11-28 [facility] Automated lymphocyte count a s percentage of total leukocytesOrdered By: [facility] on 05-12-2025 Lymphocytes/100 WBC Auto (Unsp spec) 33.2 % [facility] BUN/creatinine ratioOrdered By: [facility] on 05-12-2025 Urea nitrogen/Creatinine [Mass ratio] 15.2 mg/mg - [facility] Basophil percentageOrdered B y: Ottoniel [facility] on 05-12-2025 Basophils/100 WBC (Bld) 0.6 % 0-1 [facility] Bilirubin, totalOrdered By: [facility] on 05-12-2025 Bilirubin [Mass/Vol] 0.22 mg/dL 0.00-1.30 [facility] CBC W/Diff, Automatedon 04-17 Absolute Lymph 2.24 X10 3/uL Normal 0.83-4.51 [facility] Comment on above: Performed By: #### L 506.0400, L100.0100, L500.4050, L509.6001, L501.9520 ####[facility] [address] [place], [address] Absolute Neut 3.8 X10 3/uL Normal 2.0-7.7 [facility] Comment on above: Performed By: #### L 506.0400, L100.0100, L500.4050, L509.6001, L501.9520 ####[facility] [address] [place], [address] Basophils/100 WBC (Bld) 0.6 % Normal 0-1 [facility] Comment on above: Performed By: #### L 506.0400, L100.0100, L500.4050, L509.6001, L501.9520 ####[facility] [address] [place], [address] Eosinophils/100 WBC (Bld) 0.3 % Normal 0-5 [facility] Comment on above: Performed By: #### L 506.0400, L100.0100, L500.4050, L509.6001, L501.9520 ####[facility] [address] [place], [address] Erythrocyte distribution width (RBC) [Ratio] 15.4 % High 11.6-14.6 [facility] Comment on above: Performed By: #### L 506.0400, L100.0100, L500.4050, L509.6001, L501.9520 ####[facility] [address] [place], [address] Hematocrit (Bld) [Volume fraction] 34.2 % Low 37-47 [facility] Comment on above: Performed By: #### L 506.0400, L100.0100, L500.4050, L509.6001, L501.9520 ####[facility] [address] [place], [address] Hemoglobin (Bld) [Mass/Vol] 11.4 g/dL Low 12.0-15.0 [facility] Comment on above: Performed By: #### L 506.0400, L100.0100, L500.4050, L509.6001, L501.9520 ####[facility] [address] [place], [address] IG% 0.100 Normal 0.0-0.9 [facility] Comment on above: Result Comment: IG% - Immature Granulocytes (promyelocytes, myelocytes andmetamyelocytes) > 1% indicates that a LEFT SHIFT is Present. Performed By: #### L 506.0400, L100.0100, L500.4050, L509.6001, L501.9520 ####[facility] [address] [place], [address] Lymphocytes/100 WBC (Bld) 33.2 % Normal 19-41 [facility] Comment on above: Performed By: #### L 506.0400, L100.0100, L500.4050, L509.6001, L501.9520 ####[facility] [address] [place], [address] MCH (RBC) [Entitic mass] 30.3 pg Normal 27.0-32.0 [facility] Comment on above: Performed By: #### L 506.0400, L100.0100, L500.4050, L509.6001, L501.9520 ####[facility] [address] [place], [address] MCHC (RBC) [Mass/Vol] 33.3 g/dL Normal 32-36 [facility] Comment on above: Performed By: #### L 506.0400, L100.0100, L500.4050, L509.6001, L501.9520 ####[facility] [address] [place], [address] MCV (RBC) [Entitic vol] 91.0 fL Normal 81-99 [facility] Comment on above: Performed By: #### L 506.0400, L100.0100, L500.4050, L509.6001, L501.9520 ####[facility] [address] [place], [address] Monocytes/100 WBC (Bld) 9.9 % Normal 0-10 [facility] Comment on above: Performed By: #### L 506.0400, L100.0100, L500.4050, L509.6001, L501.9520 ####[facility] [address] [place], [address] Neutrophils/100 WBC (Bld) 55.9 % Normal 47-70 [facility] Comment on above: Performed By: #### L 506.0400, L100.0100, L500.4050, L509.6001, L501.9520 ####[facility] [address] [place], [address] Nucleated RBC (Bld) [#/Vol] 0 10*3/uL Normal 0-5 [facility] Comment on above: Performed By: #### L 506.0400, L100.0100, L500.4050, L509.6001, L501.9520 ####[facility] [address] [place], [address] Platelet mean volume (Bld) [Entitic vol] 8.8 fL Normal 6.2-12.0 [facility] Comment on above: Performed By: #### L 506.0400, L100.0100, L500.4050, L509.6001, L501.9520 ####[facility] [address] [place], [address] Platelets (Bld) [#/Vol] 264 10*3/uL Normal 150-450 [facility] Comment on above: Performed By: #### L 506.0400, L100.0100, L500.4050, L509.6001, L501.9520 ####[facility] [address] [place], [address] RBC (Bld) [#/Vol] 3.76 10*6/uL Low 4.2-5.4 [facility] Comment on above: Performed By: #### L 506.0400, L100.0100, L500.4050, L509.6001, L501.9520 ####[facility] [address] [place], [address] RDW SD 49.2 fl High 35.1-43.9 [facility] Comment on above: Performed By: #### L 506.0400, L100.0100, L500.4050, L509.6001, L501.9520 ####[facility] [address] [place], [address] WBC (Bld) [#/Vol] 6.8 10*3/uL Normal 4.4-11.0 [facility] Comment on above: Performed By: #### L 506.0400, L100.0100, L500.4050, L509.6001, L501.9520 ####[facility] [address] [place], [address] Carbon dioxide, total [Moles /volume] in Central venous bloodOrdered By: Ottoniel Cabrera on 05-12-2025 CO2 [Moles/Vol] 26.0 mmol/L 21.0-32.0 [facility] Chloride assayOrdered By: Elaine Cabrera on 05-12-2025 Chloride [Moles/Vol] 104 mmol/L 98-108 [facility] Comprehensive Metabolic Prof ilon 05-12-2025 Albumin [Mass/Vol] 4.3 g/dL Normal 3.5-5.0 [facility] Comment on above: Performed By: #### L 506.0400, L100.0100, L500.4050, L509.6001, L501.9520 ####[facility] [address] [place], [address] Albumin/Globulin [Mass ratio] 1.5 {ratio} Normal 0.9-2.4 [facility] Comment on above: Performed By: #### L 506.0400, L100.0100, L500.4050, L509.6001, L501.9520 ####[facility] [address] [place], [address] ALK PHOS 132 U/L High 35-104 [facility] Comment on above: Performed By: #### L 506.0400, L100.0100, L500.4050, L509.6001, L501.9520 ####[facility] [address] [place], [address] ALT [Catalytic activity/Vol] 95 U/L High <=34 [facility] Comment on above: Performed By: #### L 506.0400, L100.0100, L500.4050, L509.6001, L501.9520 ####[facility] [address] [place], [address] AST [Catalytic activity/Vol] 33 U/L High <=31 [facility] Comment on above: Performed By: #### L 506.0400, L100.0100, L500.4050, L509.6001, L501.9520 ####[facility] [address] [place], [address] Bilirubin [Mass/Vol] 0.22 mg/dL Normal 0.00-1.30 [facility] Comment on above: Performed By: #### L 506.0400, L100.0100, L500.4050, L509.6001, L501.9520 ####[facility] [address] [place], [address] BUN/CRE 15.2 RATIO Normal 10-20 [facility] Comment on above: Performed By: #### L 506.0400, L100.0100, L500.4050, L509.6001, L501.9520 ####[facility] [address] [place], [address] Calcium [Mass/Vol] 9.6 mg/dL Normal 7.6-11.0 [facility] Comment on above: Performed By: #### L 506.0400, L100.0100, L500.4050, L509.6001, L501.9520 ####[facility] [address] [place], [address] Chloride [Moles/Vol] 104 mmol/L Normal 98-108 [facility] Comment on above: Performed By: #### L 506.0400, L100.0100, L500.4050, L509.6001, L501.9520 ####[facility] [address] [place], [address] CO2 [Moles/Vol] 26.0 mmol/L Normal 21.0-32.0 [facility] Comment on above: Performed By: #### L 506.0400, L100.0100, L500.4050, L509.6001, L501.9520 ####[facility] [address] [place], [address] Creatinine [Mass/Vol] 0.60 mg/dL Low 0.70-1.20 [facility] Comment on above: Performed By: #### L 506.0400, L100.0100, L500.4050, L509.6001, L501.9520 ####[facility] [address] [place], [address] ECRCL 105.01 ml/min Normal 50-250 [facility] Comment on above: Performed By: #### L 506.0400, L100.0100, L500.4050, L509.6001, L501.9520 ####[facility] [address] [place], [address] GAP 11 Normal 5-15 [facility] Comment on above: Performed By: #### L 506.0400, L100.0100, L500.4050, L509.6001, L501.9520 ####[facility] [address] [place], [address] GFR/1.73 sq M.predicted among non-blacks MDRD (S/P/Bld) [Vol rate/Area] 109 mL/min/{1.73_m2} Normal >60 [facility] Comment on above: Result Comment: mL/m in/1.73m2 CKD-EPI Creatinine Equation (2020) Performed By: #### L 506.0400, L100.0100, L500.4050, L509.6001, L501.9520 ####[facility] [address] [place], [address] Globulin (S) [Mass/Vol] 2.9 g/dL Normal 2.2-4.2 [facility] Comment on above: Performed By: #### L 506.0400, L100.0100, L500.4050, L509.6001, L501.9520 ####[facility] [address] [place], [address] Glucose [Mass/Vol] 95 mg/dL Normal 70-99 [facility] Comment on above: Performed By: #### L 506.0400, L100.0100, L500.4050, L509.6001, L501.9520 ####[facility] [address] [place], [address] Potassium [Moles/Vol] 3.8 mmol/L Normal 3.3-5.1 [facility] Comment on above: Performed By: #### L 506.0400, L100.0100, L500.4050, L509.6001, L501.9520 ####[facility] [address] [place], [address] Sodium [Moles/Vol] 142 mmol/L Normal 133-145 [facility] Comment on above: Performed By: #### L 506.0400, L100.0100, L500.4050, L509.6001, L501.9520 ####[facility] [address] [place], [address] T PROT 7.2 g/dL Normal 5.9-8.4 [facility] Comment on above: Performed By: #### L 506.0400, L100.0100, L500.4050, L509.6001, L501.9520 ####[facility] [address] [place], [address] Urea nitrogen [Mass/Vol] 9 mg/dL Normal 4-19 [facility] Comment on above: Performed By: #### L 506.0400, L100.0100, L500.4050, L509.6001, L501.9520 ####[facility] [address] [place], [address] Eosinophil percentageOrdered By: Ottoniel Cabrera on 05-12-2025 Eosinophils/100 WBC (Bld) 0.3 % 0-5 [facility] Erythrocyte distribution wid th ratioOrdered By: Ottoniel Cabrera on 05-12-2025 Erythrocyte distribution width (RBC) [Ratio] 15.4 % High 11.6-14.6 [facility] Erythrocyte distribution wid th standard deviationOrdered By: Ottoniel Cabrera on 05-12-2025 Erythrocyte distribution width (RBC) [Ratio] 49.2 fl High 35.1-43.9 [facility] Glomerular filtration rate ( GFR) estimation/1.73 sq m using serum, plasma, or whole bOrdered By: Ottoniel Cabrera on 05-12-2025 GFR/1.73 sq M.predicted among non-blacks MDRD (S/P/Bld) [Vol rate/Area] 109 mL/min/{1.73_m2} >60 [facility] Comment on above: mL/min/1.73m2 CKD-EP I Creatinine Equation (2020) Hematocrit Auto (Bld) [Volum e fraction]Ordered By: Ottoniel Cabrera on 05-12-2025 Hematocrit (Bld) [Volume fraction] 34.2 % Low 37-47 [facility] Hemoglobin measurementOrdere d By: Ottoniel Cabrera on 05-12-2025 Hemoglobin (Bld) [Mass/Vol] 11.4 g/dL Low 12.0-15.0 [facility] Immature granulocytes/100 WB C Auto (Bld)Ordered By: Ottoniel Cabrera on 05-12-2025 Immature granulocytes/100 WBC (Bld) 0.100 % 0.0-0.9 [facility] Comment on above: IG% - Immature Granu locytes (promyelocytes, myelocytes and metamyelocytes) > 1% indicates that a LEFT SHIFT is Present. L509.6001on 05-12-2025 CORTISOL 10.40 ug/dL Normal 6.02-18.40 [facility] Comment on above: Performed By: #### L 506.0400, L100.0100, L500.4050, L509.6001, L501.9520 ####[facility] [address] [place], [address] Laboratory - Chemistry and C hemistry - challengeOrdered By: Ottoniel Cabrera on 05-12-2025 AST [Catalytic activity/Vol] 33 U/L High <32 [facility] MCV (mean corpuscular volume ) determinationOrdered By: Ottoniel Cabrera on 05-12-2025 MCV (RBC) [Entitic vol] 91.0 fL 81-99 [facility] Mean corpuscular hemoglobin (MCH) determinationOrdered By: Ottoniel Cabrera on 05-12-2025 MCH (RBC) [Entitic mass] 30.3 pg 27.0-32.0 [facility] Mean corpuscular hemoglobin concentration (MCHC) determinationOrdered By: Ottoniel Cabrera on 05-12-2025 MCHC (RBC) [Mass/Vol] 33.3 g/dL 32-36 [facility] Mean platelet volume determi nationOrdered By: Ottoniel Cabrera on 05-12-2025 Platelet mean volume (Bld) [Entitic vol] 8.8 fL 6.2-12.0 [facility] Monocyte percentageOrdered B y: Ottoniel Cabrera on 05-12-2025 Monocytes/100 WBC (Bld) 9.9 % 0-10 [facility] Neutrophil percentageOrdered By: Ottoniel Cabrera on 05-12-2025 Neutrophils/100 WBC (Bld) 55.9 % 47-70 [facility] Nucleated red blood cell per centageOrdered By: Ottoniel Cabrera on 05-12-2025 Nucleated RBC/100 WBC (Bld) [Ratio] 0 % 0-5 [facility] Oncology Visit Reporton 04-17 Oncology Visit Report Normal [facility] Platelet countOrdered By: Elaine Cabrera on 05-12-2025 Platelets (Bld) [#/Vol] 264 10*3/uL 150-450 [facility] Potassium measurement (mass/ volume)Ordered By: Ottoniel Cabrera on 05-12-2025 Potassium (Unsp spec) [Mass/Vol] 3.8 mmol/L 3.3-5.1 [facility] RBC Auto (Bld) [#/Vol]Ordere d By: Ottoniel Cabrera on 05-12-2025 RBC (Bld) [#/Vol] 3.76 10*6/uL Low 4.2-5.4 [facility] Serum creatinine measurement (mass/volume)Ordered By: Ottoniel Cabrera on 05-12-2025 Creatinine [Mass/Vol] 0.60 mg/dL Low 0.70-1.20 [facility] Serum globulin measurementOr dered By: Ottoniel Cabrera on 05-12-2025 Globulin (S) [Mass/Vol] 2.9 g/dL 2.2-4.2 [facility] Serum glucose measurement (m ass/volume)Ordered By: Ottoniel Cabrera on 05-12-2025 Glucose [Mass/Vol] 95 mg/dL 70-99 [facility] Serum or plasma alanine durán otransferase (ALT) measurementOrdered By: Ottoniel Cabrera on 05-12-2025 ALT [Catalytic activity/Vol] 95 U/L High <35 [facility] Serum or plasma albumin radha urement (mass/volume)Ordered By: Ottoniel Cabrera on 05-12-2025 Albumin [Mass/Vol] 4.3 g/dL 3.5-5.0 [facility] Serum or plasma albumin/glob ulin mass ratioOrdered By: Ottoniel Cabrera on 05-12-2025 Albumin/Globulin [Mass ratio] 1.5 {ratio} 0.9-2.4 [facility] Serum or plasma alkaline malaika sphatase measurementOrdered By: Ottoniel Cabrera on 05-12-2025 ALP [Catalytic activity/Vol] 132 U/L High 35-104 [facility] Serum or plasma calcium radha urement (mass/volume)Ordered By: Ottoniel Cabrera on 05-12-2025 Calcium [Mass/Vol] 9.6 mg/dL 7.6-11.0 [facility] Serum or plasma cortisol mika surement (mass/volume)Ordered By: Ottoniel Cabrera on 05-12-2025 Cortisol [Mass/Vol] 10.40 ug/dL 6.02-18.40 [facility] Serum or plasma urea nitroge n measurement (mass/volume)Ordered By: Ottoniel Cabrera on 05-12-2025 Urea nitrogen [Mass/Vol] 9 mg/dL 4-19 [facility] Sodium levelOrdered By: Jan Cabrera on 05-12-2025 Sodium [Moles/Vol] 142 mmol/L 133-145 [facility] T4 Free Directon 05-12-2025 T4 FREE DIRECT 1.00 ng/dL Normal 0.76-1.46 [facility] Comment on above: Performed By: #### L 506.0400, L100.0100, L500.4050, L509.6001, L501.9520 ####[facility] [address] [place], [address] T4 freeOrdered By: Ottoniel benton on 05-12-2025 Free T4 [Mass/Vol] 1.00 ng/dL 0.76-1.46 [facility] TSH DL <= 0.005 mIU/L QnOrde red By: Ottoniel Cabrera on 05-12-2025 TSH Qn 3.330 uIU/mL 0.300-4.200 [facility] Thyroid Stim Hormone (TSH)on 05-12-2025 TSH 3.330 uIU/mL Normal 0.300-4.200 [facility] Comment on above: Performed By: #### L 506.0400, L100.0100, L500.4050, L509.6001, L501.9520 ####[facility] [address] [place], [address] Total proteinOrdered By: Jesus Cabrera on 05-12-2025 Protein [Mass/Vol] 7.2 g/dL 5.9-8.4 [facility] White blood cell (WBC) count Ordered By: Ottoniel Cabrera on 05-12-2025 WBC (Bld) [#/Vol] 6.8 10*3/uL 4.4-11.0 [facility] CBC W/Diff, Automatedon 04-16 Absolute Lymph 2.70 X10 3/uL Normal 0.83-4.51 [facility] Comment on above: Performed By: #### L 500.4050, L100.0100, L501.5200 ####[facility] [address] [place], [address] Absolute Neut 5.6 X10 3/uL Normal 2.0-7.7 [facility] Comment on above: Performed By: #### L 500.4050, L100.0100, L501.5200 ####[facility] [address] [place], [address] Basophils/100 WBC (Bld) 0.9 % Normal 0-1 [facility] Comment on above: Performed By: #### L 500.4050, L100.0100, L501.5200 ####[facility] [address] [place], [address] Eosinophils/100 WBC (Bld) 0.1 % Normal 0-5 [facility] Comment on above: Performed By: #### L 500.4050, L100.0100, L501.5200 ####[facility] [address] [place], [address] Erythrocyte distribution width (RBC) [Ratio] 14.0 % Normal 11.6-14.6 [facility] Comment on above: Performed By: #### L 500.4050, L100.0100, L501.5200 ####[facility] [address] [place], [address] Hematocrit (Bld) [Volume fraction] 33.7 % Low 37-47 [facility] Comment on above: Performed By: #### L 500.4050, L100.0100, L501.5200 ####[facility] [address] [place], [address] Hemoglobin (Bld) [Mass/Vol] 11.2 g/dL Low 12.0-15.0 [facility] Comment on above: Performed By: #### L 500.4050, L100.0100, L501.5200 ####[facility] [address] [place], [address] IG% 1.200 High 0.0-0.9 [facility] Comment on above: Result Comment: IG% - Immature Granulocytes (promyelocytes, myelocytes andmetamyelocytes) > 1% indicates that a LEFT SHIFT is Present. Performed By: #### L 500.4050, L100.0100, L501.5200 ####[facility] [address] [place], [address] Lymphocytes/100 WBC (Bld) 29.3 % Normal 19-41 [facility] Comment on above: Performed By: #### L 500.4050, L100.0100, L501.5200 ####[facility] [address] [place], [address] MCH (RBC) [Entitic mass] 30.0 pg Normal 27.0-32.0 [facility] Comment on above: Performed By: #### L 500.4050, L100.0100, L501.5200 ####[facility] [address] [place], [address] MCHC (RBC) [Mass/Vol] 33.2 g/dL Normal 32-36 [facility] Comment on above: Performed By: #### L 500.4050, L100.0100, L501.5200 ####[facility] [address] [place], [address] MCV (RBC) [Entitic vol] 90.3 fL Normal 81-99 [facility] Comment on above: Performed By: #### L 500.4050, L100.0100, L501.5200 ####[facility] [address] [place], [address] Monocytes/100 WBC (Bld) 7.7 % Normal 0-10 [facility] Comment on above: Performed By: #### L 500.4050, L100.0100, L501.5200 ####[facility] [address] [place], [address] Neutrophils/100 WBC (Bld) 60.8 % Normal 47-70 [facility] Comment on above: Performed By: #### L 500.4050, L100.0100, L501.5200 ####[facility] [address] [place], [address] Nucleated RBC (Bld) [#/Vol] 0.3 10*3/uL Normal 0-5 [facility] Comment on above: Performed By: #### L 500.4050, L100.0100, L501.5200 ####[facility] [address] [place], [address] Platelet mean volume (Bld) [Entitic vol] 9.1 fL Normal 6.2-12.0 [facility] Comment on above: Performed By: #### L 500.4050, L100.0100, L501.5200 ####[facility] [address] [place], [address] Platelets (Bld) [#/Vol] 161 10*3/uL Normal 150-450 [facility] Comment on above: Performed By: #### L 500.4050, L100.0100, L501.5200 ####[facility] [address] [place], [address] RBC (Bld) [#/Vol] 3.73 10*6/uL Low 4.2-5.4 [facility] Comment on above: Performed By: #### L 500.4050, L100.0100, L501.5200 ####[facility] [address] [place], [address] RDW SD 46.3 fl High 35.1-43.9 [facility] Comment on above: Performed By: #### L 500.4050, L100.0100, L501.5200 ####[facility] [address] [place], [address] WBC (Bld) [#/Vol] 9.2 10*3/uL Normal 4.4-11.0 [facility] Comment on above: Performed By: #### L 500.4050, L100.0100, L501.5200 ####[facility] [address] [place], [address] Comprehensive Metabolic Prof akon 05-01-2025 Albumin [Mass/Vol] 4.3 g/dL Normal 3.5-5.0 [facility] Comment on above: Performed By: #### L 500.4050, L100.0100, L501.5200 ####[facility] [address] [place], [address] Albumin/Globulin [Mass ratio] 1.5 {ratio} Normal 0.9-2.4 [facility] Comment on above: Performed By: #### L 500.4050, L100.0100, L501.5200 ####[facility] [address] [place], [address] ALK PHOS 186 U/L High 35-104 [facility] Comment on above: Performed By: #### L 500.4050, L100.0100, L501.5200 ####[facility] [address] [place], [address] ALT [Catalytic activity/Vol] 357 U/L High <=34 [facility] Comment on above: Performed By: #### L 500.4050, L100.0100, L501.5200 ####[facility] [address] [place], [address] AST [Catalytic activity/Vol] 98 U/L High <=31 [facility] Comment on above: Performed By: #### L 500.4050, L100.0100, L501.5200 ####[facility] [address] [place], [address] Bilirubin [Mass/Vol] 0.18 mg/dL Normal 0.00-1.30 [facility] Comment on above: Performed By: #### L 500.4050, L100.0100, L501.5200 ####[facility] [address] [place], [address] BUN/CRE 19.5 RATIO Normal 10-20 [facility] Comment on above: Performed By: #### L 500.4050, L100.0100, L501.5200 ####[facility] [address] [place], [address] Calcium [Mass/Vol] 9.6 mg/dL Normal 7.6-11.0 [facility] Comment on above: Performed By: #### L 500.4050, L100.0100, L501.5200 ####[facility] [address] [place], [address] Chloride [Moles/Vol] 105 mmol/L Normal 98-108 [facility] Comment on above: Performed By: #### L 500.4050, L100.0100, L501.5200 ####[facility] [address] [place], [address] CO2 [Moles/Vol] 26.5 mmol/L Normal 21.0-32.0 [facility] Comment on above: Performed By: #### L 500.4050, L100.0100, L501.5200 ####[facility] [address] [place], [address] Creatinine [Mass/Vol] 0.51 mg/dL Low 0.70-1.20 [facility] Comment on above: Performed By: #### L 500.4050, L100.0100, L501.5200 ####[facility] [address] [place], [address] ECRCL 123.54 ml/min Normal 50-250 [facility] Comment on above: Performed By: #### L 500.4050, L100.0100, L501.5200 ####[facility] [address] [place], [address] GAP 10 Normal 5-15 [facility] Comment on above: Performed By: #### L 500.4050, L100.0100, L501.5200 ####[facility] [address] [place], [address] GFR/1.73 sq M.predicted among non-blacks MDRD (S/P/Bld) [Vol rate/Area] 114 mL/min/{1.73_m2} Normal >60 [facility] Comment on above: Result Comment: mL/m in/1.73m2 CKD-EPI Creatinine Equation (2020) Performed By: #### L 500.4050, L100.0100, L501.5200 ####[facility] [address] [place], [address] Globulin (S) [Mass/Vol] 2.8 g/dL Normal 2.2-4.2 [facility] Comment on above: Performed By: #### L 500.4050, L100.0100, L501.5200 ####[facility] [address] [place], [address] Glucose [Mass/Vol] 104 mg/dL High 70-99 [facility] Comment on above: Performed By: #### L 500.4050, L100.0100, L501.5200 ####[facility] [address] [place], [address] Potassium [Moles/Vol] 3.5 mmol/L Normal 3.3-5.1 [facility] Comment on above: Performed By: #### L 500.4050, L100.0100, L501.5200 ####[facility] [address] [place], [address] Sodium [Moles/Vol] 142 mmol/L Normal 133-145 [facility] Comment on above: Performed By: #### L 500.4050, L100.0100, L501.5200 ####[facility] [address] [place], [address] T PROT 7.1 g/dL Normal 5.9-8.4 [facility] Comment on above: Performed By: #### L 500.4050, L100.0100, L501.5200 ####[facility] [address] [place], [address] Urea nitrogen [Mass/Vol] 10 mg/dL Normal 4-19 [facility] Comment on above: Performed By: #### L 500.4050, L100.0100, L501.5200 ####[facility] [address] [place], [address] Magnesiumon 05-01-2025 Magnesium [Mass/Vol] 1.9 mg/dL Normal 1.5-2.2 [facility] Comment on above: Performed By: #### L 500.4050, L100.0100, L501.5200 ####[facility] [address] [place], [address] Magnesium measurement (mass/ volume)Ordered By: Chayo Black on 05-01-2025 Magnesium (Unsp spec) [Mass/Vol] 1.9 mg/dL 1.5-2.2 [facility] Oncology Visit Reporton 04-16 Oncology Visit Report Normal [facility] CBC W/Diff, Automatedon PATH REV Reviewed Normal [facility] Comment on above: Result Comment: SEE REPORT IN PATIENT'S EMR AMENDED REPORT 04/23/25 0915 PATH REV previously reported as: November Performed By: #### L 100.0100, L500.4050, L503.0106, L506.0200, L504.2610, L503.6550, L503.6030 ####[facility] [address] [place], [address] Abdomen Limitedon 04-22-[address] [facility] Absolute lymphocyte countOrd ered By: Ottoniel Cabrera on 04-21-2025 Lymphocytes Auto (Unsp spec) [#/Vol] 1.98 10*3/uL 0.83-4.51 [facility] Absolute neutrophil countOrd ered By: Ottoniel Cabrera on 04-21-2025 Neutrophils (Bld) [#/Vol] 1.9 10*3/uL Low 2.0-7.7 [facility] Anion gap in Serum or Plasma Ordered By: Ottoniel Cabrera on 04-21-2025 Anion gap [Moles/Vol] 14 mmol/L 5-15 [facility] Automated lymphocyte count a s percentage of total leukocytesOrdered By: Ottoniel Cabrera on 04-21-2025 Lymphocytes/100 WBC Auto (Unsp spec) 45.8 % High 19-41 [facility] BUN/creatinine ratioOrdered By: Ottoniel Cbarera on 04-21-2025 Urea nitrogen/Creatinine [Mass ratio] 20.8 mg/mg High 10-20 [facility] Basophil percentageOrdered B y: Ottoniel Cabrera on 04-21-2025 Basophils/100 WBC (Bld) 0.5 % 0-1 [facility] Bilirubin, totalOrdered By: Ottoniel Cabrera on 04-21-2025 Bilirubin [Mass/Vol] 0.24 mg/dL 0.00-1.30 [facility] CBC W/Diff, Automatedon Absolute Lymph 1.98 X10 3/uL Normal 0.83-4.51 [facility] Comment on above: Performed By: #### L 100.0100, L500.4050, L501.9520, L506.0400, L509.6001 ####[facility] [address] [place], [address] Absolute Neut 1.9 X10 3/uL Low 2.0-7.7 [facility] Comment on above: Performed By: #### L 100.0100, L500.4050, L501.9520, L506.0400, L509.6001 ####[facility] [address] [place], [address] Basophils/100 WBC (Bld) 0.5 % Normal 0-1 [facility] Comment on above: Performed By: #### L 100.0100, L500.4050, L501.9520, L506.0400, L509.6001 ####[facility] [address] [place], [address] Eosinophils/100 WBC (Bld) 0.7 % Normal 0-5 [facility] Comment on above: Performed By: #### L 100.0100, L500.4050, L501.9520, L506.0400, L509.6001 ####[facility] [address] [place], [address] Erythrocyte distribution width (RBC) [Ratio] 13.9 % Normal 11.6-14.6 [facility] Comment on above: Performed By: #### L 100.0100, L500.4050, L501.9520, L506.0400, L509.6001 ####[facility] [address] [place], [address] Hematocrit (Bld) [Volume fraction] 35.0 % Low 37-47 [facility] Comment on above: Performed By: #### L 100.0100, L500.4050, L501.9520, L506.0400, L509.6001 ####[facility] [address] [place], [address] Hemoglobin (Bld) [Mass/Vol] 11.7 g/dL Low 12.0-15.0 [facility] Comment on above: Performed By: #### L 100.0100, L500.4050, L501.9520, L506.0400, L509.6001 ####[facility] [address] [place], [address] IG% 0.500 Normal 0.0-0.9 [facility] Comment on above: Result Comment: IG% - Immature Granulocytes (promyelocytes, myelocytes andmetamyelocytes) > 1% indicates that a LEFT SHIFT is Present. Performed By: #### L 100.0100, L500.4050, L501.9520, L506.0400, L509.6001 ####[facility] [address] [place], [address] Lymphocytes/100 WBC (Bld) 45.8 % High 19-41 [facility] Comment on above: Performed By: #### L 100.0100, L500.4050, L501.9520, L506.0400, L509.6001 ####[facility] [address] [place], [address] MCH (RBC) [Entitic mass] 29.9 pg Normal 27.0-32.0 [facility] Comment on above: Performed By: #### L 100.0100, L500.4050, L501.9520, L506.0400, L509.6001 ####[facility] [address] [place], [address] MCHC (RBC) [Mass/Vol] 33.4 g/dL Normal 32-36 [facility] Comment on above: Performed By: #### L 100.0100, L500.4050, L501.9520, L506.0400, L509.6001 ####[facility] [address] [place], [address] MCV (RBC) [Entitic vol] 89.5 fL Normal 81-99 [facility] Comment on above: Performed By: #### L 100.0100, L500.4050, L501.9520, L506.0400, L509.6001 ####[facility] [address] [place], [address] Monocytes/100 WBC (Bld) 9.0 % Normal 0-10 [facility] Comment on above: Performed By: #### L 100.0100, L500.4050, L501.9520, L506.0400, L509.6001 ####[facility] [address] [place], [address] Neutrophils/100 WBC (Bld) 43.5 % Low 47-70 [facility] Comment on above: Performed By: #### L 100.0100, L500.4050, L501.9520, L506.0400, L509.6001 ####[facility] [address] [place], [address] Nucleated RBC (Bld) [#/Vol] 0 10*3/uL Normal 0-5 [facility] Comment on above: Performed By: #### L 100.0100, L500.4050, L501.9520, L506.0400, L509.6001 ####[facility] [address] [place], [address] Platelet mean volume (Bld) [Entitic vol] 9.3 fL Normal 6.2-12.0 [facility] Comment on above: Performed By: #### L 100.0100, L500.4050, L501.9520, L506.0400, L509.6001 ####[facility] [address] [place], [address] Platelets (Bld) [#/Vol] 181 10*3/uL Normal 150-450 [facility] Comment on above: Performed By: #### L 100.0100, L500.4050, L501.9520, L506.0400, L509.6001 ####[facility] [address] [place], [address] RBC (Bld) [#/Vol] 3.91 10*6/uL Low 4.2-5.4 [facility] Comment on above: Performed By: #### L 100.0100, L500.4050, L501.9520, L506.0400, L509.6001 ####[facility] [address] [place], [address] RDW SD 45.1 fl High 35.1-43.9 [facility] Comment on above: Performed By: #### L 100.0100, L500.4050, L501.9520, L506.0400, L509.6001 ####[facility] [address] [place], [address] WBC (Bld) [#/Vol] 4.3 10*3/uL Low 4.4-11.0 [facility] Comment on above: Performed By: #### L 100.0100, L500.4050, L501.9520, L506.0400, L509.6001 ####[facility] [address] [place], [address] Absolute Neut Normal 2.0-7.7 [facility] Comment on above: Result Comment: DUPL ICATE ORDER Performed By: #### L 100.0100, L500.4050 ####[facility] [address] [place], [address] HCT Normal 37-47 [facility] Comment on above: Result Comment: DUPL ICATE ORDER Performed By: #### L 100.0100, L500.4050 ####[facility] [address] [place], [address] HGB Normal 12.0-15.0 [facility] Comment on above: Result Comment: DUPL ICATE ORDER Performed By: #### L 100.0100, L500.4050 ####[facility] [address] [place], [address] MCH Normal 27.0-32.0 [facility] Comment on above: Result Comment: DUPL ICATE ORDER Performed By: #### L 100.0100, L500.4050 ####[facility] [address] [place], [address] MCHC Normal 32-36 [facility] Comment on above: Result Comment: DUPL ICATE ORDER Performed By: #### L 100.0100, L500.4050 ####[facility] [address] [place], [address] MCV Normal 81-99 [facility] Comment on above: Result Comment: DUPL ICATE ORDER Performed By: #### L 100.0100, L500.4050 ####[facility] [address] [place], [address] NEUT% Normal 47-70 [facility] Comment on above: Result Comment: DUPL ICATE ORDER Performed By: #### L 100.0100, L500.4050 ####[facility] [address] [place], [address] PLT Normal 150-450 [facility] Comment on above: Result Comment: DUPL ICATE ORDER Performed By: #### L 100.0100, L500.4050 ####[facility] [address] [place], [address] RBC Normal 4.2-5.4 [facility] Comment on above: Result Comment: DUPL ICATE ORDER Performed By: #### L 100.0100, L500.4050 ####[facility] [address] [place], [address] RDW CV Normal 11.6-14.6 [facility] Comment on above: Result Comment: DUPL ICATE ORDER Performed By: #### L 100.0100, L500.4050 ####[facility] [address] [place], [address] RDW SD Normal 35.1-43.9 [facility] Comment on above: Result Comment: DUPL ICATE ORDER Performed By: #### L 100.0100, L500.4050 ####[facility] [address] [place], [address] WBC Normal 4.4-11.0 [facility] Comment on above: Result Comment: DUPL ICATE ORDER Performed By: #### L 100.0100, L500.4050 ####[facility] [address] [place], [address] Carbon dioxide, total [Moles /volume] in Central venous bloodOrdered By: Ottoniel Cabrera on 04-21-2025 CO2 [Moles/Vol] 23.0 mmol/L 21.0-32.0 [facility] Chloride assayOrdered By: Elaine Caberra on 04-21-2025 Chloride [Moles/Vol] 106 mmol/L 98-108 [facility] Comprehensive Metabolic Prof ilon 04-21-2025 Albumin [Mass/Vol] 4.3 g/dL Normal 3.5-5.0 [facility] Comment on above: Performed By: #### L 100.0100, L500.4050, L501.9520, L506.0400, L509.6001 ####[facility] [address] [place], [address] Albumin/Globulin [Mass ratio] 1.6 {ratio} Normal 0.9-2.4 [facility] Comment on above: Performed By: #### L 100.0100, L500.4050, L501.9520, L506.0400, L509.6001 ####[facility] [address] [place], [address] ALK PHOS 110 U/L High 35-104 [facility] Comment on above: Performed By: #### L 100.0100, L500.4050, L501.9520, L506.0400, L509.6001 ####[facility] [address] [place], [address] ALT [Catalytic activity/Vol] 109 U/L High <=34 [facility] Comment on above: Performed By: #### L 100.0100, L500.4050, L501.9520, L506.0400, L509.6001 ####[facility] [address] [place], [address] AST [Catalytic activity/Vol] 43 U/L High <=31 [facility] Comment on above: Performed By: #### L 100.0100, L500.4050, L501.9520, L506.0400, L509.6001 ####[facility] [address] [place], [address] Bilirubin [Mass/Vol] 0.24 mg/dL Normal 0.00-1.30 [facility] Comment on above: Performed By: #### L 100.0100, L500.4050, L501.9520, L506.0400, L509.6001 ####[facility] [address] [place], [address] BUN/CRE 20.8 RATIO High 10-20 [facility] Comment on above: Performed By: #### L 100.0100, L500.4050, L501.9520, L506.0400, L509.6001 ####[facility] [address] [place], [address] Calcium [Mass/Vol] 9.5 mg/dL Normal 7.6-11.0 [facility] Comment on above: Performed By: #### L 100.0100, L500.4050, L501.9520, L506.0400, L509.6001 ####[facility] [address] [place], [address] Chloride [Moles/Vol] 106 mmol/L Normal 98-108 [facility] Comment on above: Performed By: #### L 100.0100, L500.4050, L501.9520, L506.0400, L509.6001 ####[facility] [address] [place], [address] CO2 [Moles/Vol] 23.0 mmol/L Normal 21.0-32.0 [facility] Comment on above: Performed By: #### L 100.0100, L500.4050, L501.9520, L506.0400, L509.6001 ####[facility] [address] [place], [address] Creatinine [Mass/Vol] 0.59 mg/dL Low 0.70-1.20 [facility] Comment on above: Performed By: #### L 100.0100, L500.4050, L501.9520, L506.0400, L509.6001 ####[facility] [address] [place], [address] ECRCL 106.79 ml/min Normal 50-250 [facility] Comment on above: Performed By: #### L 100.0100, L500.4050, L501.9520, L506.0400, L509.6001 ####[facility] [address] [place], [address] GAP 14 Normal 5-15 [facility] Comment on above: Performed By: #### L 100.0100, L500.4050, L501.9520, L506.0400, L509.6001 ####[facility] [address] [place], [address] GFR/1.73 sq M.predicted among non-blacks MDRD (S/P/Bld) [Vol rate/Area] 110 mL/min/{1.73_m2} Normal >60 [facility] Comment on above: Result Comment: mL/m in/1.73m2 CKD-EPI Creatinine Equation (2020) Performed By: #### L 100.0100, L500.4050, L501.9520, L506.0400, L509.6001 ####[facility] [address] [place], [address] Globulin (S) [Mass/Vol] 2.8 g/dL Normal 2.2-4.2 [facility] Comment on above: Performed By: #### L 100.0100, L500.4050, L501.9520, L506.0400, L509.6001 ####[facility] [address] [place], [address] Glucose [Mass/Vol] 122 mg/dL High 70-99 [facility] Comment on above: Performed By: #### L 100.0100, L500.4050, L501.9520, L506.0400, L509.6001 ####[facility] [address] [place], [address] Potassium [Moles/Vol] 4.1 mmol/L Normal 3.3-5.1 [facility] Comment on above: Performed By: #### L 100.0100, L500.4050, L501.9520, L506.0400, L509.6001 ####[facility] [address] [place], [address] Sodium [Moles/Vol] 143 mmol/L Normal 133-145 [facility] Comment on above: Performed By: #### L 100.0100, L500.4050, L501.9520, L506.0400, L509.6001 ####[facility] [address] [place], [address] T PROT 7.1 g/dL Normal 5.9-8.4 [facility] Comment on above: Performed By: #### L 100.0100, L500.4050, L501.9520, L506.0400, L509.6001 ####[facility] [address] [place], [address] Urea nitrogen [Mass/Vol] 12 mg/dL Normal 4-19 [facility] Comment on above: Performed By: #### L 100.0100, L500.4050, L501.9520, L506.0400, L509.6001 ####[facility] [address] [place], [address] ALB Normal 3.5-5.0 [facility] Comment on above: Result Comment: DUPL ICATE ORDER Performed By: #### L 100.0100, L500.4050 ####[facility] [address] [place], [address] ALK PHOS Normal 35-104 [facility] Comment on above: Result Comment: DUPL ICATE ORDER Performed By: #### L 100.0100, L500.4050 ####[facility] [address] [place], [address] ALT Normal <=34 [facility] Comment on above: Result Comment: DUPL ICATE ORDER Performed By: #### L 100.0100, L500.4050 ####[facility] [address] [place], [address] AST Normal <=31 [facility] Comment on above: Result Comment: DUPL ICATE ORDER Performed By: #### L 100.0100, L500.4050 ####[facility] [address] [place], [address] BUN Normal 4-19 [facility] Comment on above: Result Comment: DUPL ICATE ORDER Performed By: #### L 100.0100, L500.4050 ####[facility] [address] [place], [address] BUN/CRE Normal 10-20 [facility] Comment on above: Result Comment: DUPL ICATE ORDER Performed By: #### L 100.0100, L500.4050 ####[facility] [address] [place], [address] Calcium Normal 7.6-11.0 [facility] Comment on above: Result Comment: DUPL ICATE ORDER Performed By: #### L 100.0100, L500.4050 ####[facility] [address] [place], [address] CL Normal 98-108 [facility] Comment on above: Result Comment: DUPL ICATE ORDER Performed By: #### L 100.0100, L500.4050 ####[facility] [address] [place], [address] CO2 Normal 21.0-32.0 [facility] Comment on above: Result Comment: DUPL ICATE ORDER Performed By: #### L 100.0100, L500.4050 ####[facility] [address] [place], [address] CREAT,SERUM Normal 0.70-1.20 [facility] Comment on above: Result Comment: DUPL ICATE ORDER Performed By: #### L 100.0100, L500.4050 ####[facility] [address] [place], [address] eGFR Normal >60 [facility] Comment on above: Result Comment: DUPL ICATE ORDER Performed By: #### L 100.0100, L500.4050 ####[facility] [address] [place], [address] GAP Normal 5-15 [facility] Comment on above: Result Comment: DUPL ICATE ORDER Performed By: #### L 100.0100, L500.4050 ####[facility] [address] [place], [address] GLU Normal 70-99 [facility] Comment on above: Result Comment: DUPL ICATE ORDER Performed By: #### L 100.0100, L500.4050 ####[facility] [address] [place], [address] Potassium Normal 3.3-5.1 [facility] Comment on above: Result Comment: DUPL ICATE ORDER Performed By: #### L 100.0100, L500.4050 ####[facility] [address] [place], [address] T BILI Normal 0.00-1.30 [facility] Comment on above: Result Comment: DUPL ICATE ORDER Performed By: #### L 100.0100, L500.4050 ####[facility] [address] [place], [address] T PROT Normal 5.9-8.4 [facility] Comment on above: Result Comment: DUPL ICATE ORDER Performed By: #### L 100.0100, L500.4050 ####[facility] [address] [place], [address] Comprehensive Metabolic Profil Normal 133-145 [facility] Comment on above: Result Comment: DUPL ICATE ORDER Performed By: #### L 100.0100, L500.4050 ####[facility] [address] [place], [address] Eosinophil percentageOrdered By: Ottoniel Cabrera on 04-21-2025 Eosinophils/100 WBC (Bld) 0.7 % 0-5 [facility] Erythrocyte distribution wid th ratioOrdered By: Ottoniel Cabrera on 04-21-2025 Erythrocyte distribution width (RBC) [Ratio] 13.9 % 11.6-14.6 [facility] Erythrocyte distribution wid th standard deviationOrdered By: Ottoniel Cabrera on 04-21-2025 Erythrocyte distribution width (RBC) [Ratio] 45.1 fl High 35.1-43.9 [facility] Glomerular filtration rate ( GFR) estimation/1.73 sq m using serum, plasma, or whole bOrdered By: Ottoniel Cabrera on 04-21-2025 GFR/1.73 sq M.predicted among non-blacks MDRD (S/P/Bld) [Vol rate/Area] 110 mL/min/{1.73_m2} >60 [facility] Comment on above: mL/min/1.73m2 CKD-EP I Creatinine Equation (2020) Hematocrit Auto (Bld) [Volum e fraction]Ordered By: Ottoniel Cabrera on 04-21-2025 Hematocrit (Bld) [Volume fraction] 35.0 % Low 37-47 [facility] Hemoglobin measurementOrdere d By: Ottoniel Cabrera on 04-21-2025 Hemoglobin (Bld) [Mass/Vol] 11.7 g/dL Low 12.0-15.0 [facility] Immature granulocytes/100 WB C Auto (Bld)Ordered By: Ottoniel Cabrera on 04-21-2025 Immature granulocytes/100 WBC (Bld) 0.500 % 0.0-0.9 [facility] Comment on above: IG% - Immature Granu locytes (promyelocytes, myelocytes and metamyelocytes) > 1% indicates that a LEFT SHIFT is Present. L509.6001on 04-21-2025 CORTISOL 13.80 ug/dL Normal 6.02-18.40 [facility] Comment on above: Performed By: #### L 100.0100, L500.4050, L501.9520, L506.0400, L509.6001 ####[facility] [address] [place], [address] Laboratory - Chemistry and C hemistry - challengeOrdered By: Ottoniel Cabrera on 04-21-2025 AST [Catalytic activity/Vol] 43 U/L High <32 [facility] MCV (mean corpuscular volume ) determinationOrdered By: Ottoniel Cabrera on 04-21-2025 MCV (RBC) [Entitic vol] 89.5 fL 81-99 [facility] Mean corpuscular hemoglobin (MCH) determinationOrdered By: Ottoniel Cabrera on 04-21-2025 MCH (RBC) [Entitic mass] 29.9 pg 27.0-32.0 [facility] Mean corpuscular hemoglobin concentration (MCHC) determinationOrdered By: Ottoniel Cabrera on 04-21-2025 MCHC (RBC) [Mass/Vol] 33.4 g/dL 32-36 [facility] Mean platelet volume determi nationOrdered By: Ottoniel Cabrera on 04-21-2025 Platelet mean volume (Bld) [Entitic vol] 9.3 fL 6.2-12.0 [facility] Monocyte percentageOrdered B y: Ottoniel Cabrera on 04-21-2025 Monocytes/100 WBC (Bld) 9.0 % 0-10 [facility] Neutrophil percentageOrdered By: Ottoniel Cabrera on 04-21-2025 Neutrophils/100 WBC (Bld) 43.5 % Low 47-70 [facility] Nucleated red blood cell per centageOrdered By: Ottoniel Cabrera on 04-21-2025 Nucleated RBC/100 WBC (Bld) [Ratio] 0 % 0-5 [facility] Oncology Visit Reporton 100 Oncology Visit Report Normal [facility] Platelet countOrdered By: Elaine Cabrera on 04-21-2025 Platelets (Bld) [#/Vol] 181 10*3/uL 150-450 [facility] Potassium measurement (mass/ volume)Ordered By: Ottoniel Cabrera on 04-21-2025 Potassium (Unsp spec) [Mass/Vol] 4.1 mmol/L 3.3-5.1 [facility] RBC Auto (Bld) [#/Vol]Ordere d By: Ottoniel Cabrera on 04-21-2025 RBC (Bld) [#/Vol] 3.91 10*6/uL Low 4.2-5.4 [facility] Serum creatinine measurement (mass/volume)Ordered By: Ottoniel Cabrera on 04-21-2025 Creatinine [Mass/Vol] 0.59 mg/dL Low 0.70-1.20 [facility] Serum globulin measurementOr dered By: Ottoniel Cabrera on 04-21-2025 Globulin (S) [Mass/Vol] 2.8 g/dL 2.2-4.2 [facility] Serum glucose measurement (m ass/volume)Ordered By: Ottoniel Cabrera on 04-21-2025 Glucose [Mass/Vol] 122 mg/dL High 70-99 [facility] Serum or plasma alanine durán otransferase (ALT) measurementOrdered By: Ottoniel Cabrera on 04-21-2025 ALT [Catalytic activity/Vol] 109 U/L High <35 [facility] Serum or plasma albumin radha urement (mass/volume)Ordered By: Ottoniel Cabrera on 04-21-2025 Albumin [Mass/Vol] 4.3 g/dL 3.5-5.0 [facility] Serum or plasma albumin/glob ulin mass ratioOrdered By: Ottoniel Cabrera on 04-21-2025 Albumin/Globulin [Mass ratio] 1.6 {ratio} 0.9-2.4 [facility] Serum or plasma alkaline malaika sphatase measurementOrdered By: Ottoniel Cabrera on 04-21-2025 ALP [Catalytic activity/Vol] 110 U/L High 35-104 [facility] Serum or plasma calcium radha urement (mass/volume)Ordered By: Ottoniel Cabrera on 04-21-2025 Calcium [Mass/Vol] 9.5 mg/dL 7.6-11.0 [facility] Serum or plasma cortisol mika surement (mass/volume)Ordered By: Ottoniel Cabrera on 04-21-2025 Cortisol [Mass/Vol] 13.80 ug/dL 6.02-18.40 [facility] Serum or plasma urea nitroge n measurement (mass/volume)Ordered By: Ottoniel Cabrera on 04-21-2025 Urea nitrogen [Mass/Vol] 12 mg/dL 4-19 [facility] Sodium levelOrdered By: Jan Cabrera on 04-21-2025 Sodium [Moles/Vol] 143 mmol/L 133-145 [facility] T4 Free Directon 04-21-2025 T4 FREE DIRECT 1.10 ng/dL Normal 0.76-1.46 [facility] Comment on above: Performed By: #### L 100.0100, L500.4050, L501.9520, L506.0400, L509.6001 ####[facility] [address] [place], [place], [id number] T4 freeOrdered By: Ottoniel benton on 04-21-2025 Free T4 [Mass/Vol] 1.10 ng/dL 0.76-1.46 [facility] TSH DL <= 0.005 mIU/L QnOrde red By: Ottoniel Cabrera on 04-21-2025 TSH Qn 1.910 uIU/mL 0.300-4.200 [facility] Thyroid Stim Hormone (TSH)on 04-21-2025 TSH 1.910 uIU/mL Normal 0.300-4.200 [facility] Comment on above: Performed By: #### L 100.0100, L500.4050, L501.9520, L506.0400, L509.6001 ####[facility] [address] [place], [place], [id number] Total proteinOrdered By: Jesus seymour Rick on 04-21-2025 Protein [Mass/Vol] 7.1 g/dL 5.9-8.4 [facility] White blood cell (WBC) count Ordered By: Ottoniel Rick on 04-21-2025 WBC (Bld) [#/Vol] 4.3 10*3/uL Low 4.4-11.0 [facility] Absolute lymphocyte countOrd ered By: Ottoniel Rick on 04-14-2025 Lymphocytes Auto (Unsp spec) [#/Vol] 1.91 10*3/uL 0.83-4.51 [facility] Absolute neutrophil countOrd ered By: Ottoniel [facility] on 04-14-2025 Neutrophils (Bld) [#/Vol] 1.2 10*3/uL Low 2.0-7.7 [facility] Anion gap in Serum or Plasma Ordered By: Ottoniel Cabrera on 04-14-2025 Anion gap [Moles/Vol] 12 mmol/L 5-15 [facility] Automated lymphocyte count a s percentage of total leukocytesOrdered By: Ottoniel Rick on 04-14-2025 Lymphocytes/100 WBC Auto (Unsp spec) 54.0 % High 19-41 [facility] BUN/creatinine ratioOrdered By: [facility]iel [facility] on 04-14-2025 Urea nitrogen/Creatinine [Mass ratio] 25.2 mg/mg High 10-20 [facility] Basophil percentageOrdered B y: Ottoniel Cabrera on 04-14-2025 Basophils/100 WBC (Bld) 0.6 % 0-1 [facility] Bilirubin, totalOrdered By: Ottoniel Rick on 04-14-2025 Bilirubin [Mass/Vol] 0.24 mg/dL 0.00-1.30 [facility] CBC W/Diff, Automatedon 03-18 Absolute Lymph 1.91 X10 3/uL Normal 0.83-4.51 [facility] Comment on above: Performed By: #### L 506.0400, L100.0100, L509.6001, L500.4050, L501.9520 ####[facility] [address] [place], [address] Absolute Neut 1.2 X10 3/uL Low 2.0-7.7 [facility] Comment on above: Performed By: #### L 506.0400, L100.0100, L509.6001, L500.4050, L501.9520 ####[facility] [address] [place], [address] Basophils/100 WBC (Bld) 0.6 % Normal 0-1 [facility] Comment on above: Performed By: #### L 506.0400, L100.0100, L509.6001, L500.4050, L501.9520 ####[facility] [address] [place], [address] Eosinophils/100 WBC (Bld) 0.3 % Normal 0-5 [facility] Comment on above: Performed By: #### L 506.0400, L100.0100, L509.6001, L500.4050, L501.9520 ####[facility] [address] [place], [address] Erythrocyte distribution width (RBC) [Ratio] 13.3 % Normal 11.6-14.6 [facility] Comment on above: Performed By: #### L 506.0400, L100.0100, L509.6001, L500.4050, L501.9520 ####[facility] [address] [place], [address] Hematocrit (Bld) [Volume fraction] 35.6 % Low 37-47 [facility] Comment on above: Performed By: #### L 506.0400, L100.0100, L509.6001, L500.4050, L501.9520 ####[facility] [address] [place], [address] Hemoglobin (Bld) [Mass/Vol] 11.9 g/dL Low 12.0-15.0 [facility] Comment on above: Performed By: #### L 506.0400, L100.0100, L509.6001, L500.4050, L501.9520 ####[facility] [address] [place], [address] IG% 0.000 Normal 0.0-0.9 [facility] Comment on above: Result Comment: IG% - Immature Granulocytes (promyelocytes, myelocytes andmetamyelocytes) > 1% indicates that a LEFT SHIFT is Present. Performed By: #### L 506.0400, L100.0100, L509.6001, L500.4050, L501.9520 ####[facility] [address] [place], [address] Lymphocytes/100 WBC (Bld) 54.0 % High 19-41 [facility] Comment on above: Performed By: #### L 506.0400, L100.0100, L509.6001, L500.4050, L501.9520 ####[facility] [address] [place], [address] MCH (RBC) [Entitic mass] 29.8 pg Normal 27.0-32.0 [facility] Comment on above: Performed By: #### L 506.0400, L100.0100, L509.6001, L500.4050, L501.9520 ####[facility] [address] [place], [address] MCHC (RBC) [Mass/Vol] 33.4 g/dL Normal 32-36 [facility] Comment on above: Performed By: #### L 506.0400, L100.0100, L509.6001, L500.4050, L501.9520 ####[facility] [address] [place], [address] MCV (RBC) [Entitic vol] 89.2 fL Normal 81-99 [facility] Comment on above: Performed By: #### L 506.0400, L100.0100, L509.6001, L500.4050, L501.9520 ####[facility] [address] [place], [address] Monocytes/100 WBC (Bld) 10.5 % High 0-10 [facility] Comment on above: Performed By: #### L 506.0400, L100.0100, L509.6001, L500.4050, L501.9520 ####[facility] [address] [place], [address] Neutrophils/100 WBC (Bld) 34.6 % Low 47-70 [facility] Comment on above: Performed By: #### L 506.0400, L100.0100, L509.6001, L500.4050, L501.9520 ####[facility] [address] [place], [address] Nucleated RBC (Bld) [#/Vol] 0 10*3/uL Normal 0-5 [facility] Comment on above: Performed By: #### L 506.0400, L100.0100, L509.6001, L500.4050, L501.9520 ####[facility] [address] [place], [address] Platelet mean volume (Bld) [Entitic vol] 9.0 fL Normal 6.2-12.0 [facility] Comment on above: Performed By: #### L 506.0400, L100.0100, L509.6001, L500.4050, L501.9520 ####[facility] [address] [place], [address] Platelets (Bld) [#/Vol] 163 10*3/uL Normal 150-450 [facility] Comment on above: Performed By: #### L 506.0400, L100.0100, L509.6001, L500.4050, L501.9520 ####[facility] [address] [place], [address] RBC (Bld) [#/Vol] 3.99 10*6/uL Low 4.2-5.4 [facility] Comment on above: Performed By: #### L 506.0400, L100.0100, L509.6001, L500.4050, L501.9520 ####[facility] [address] [place], [address] RDW SD 42.5 fl Normal 35.1-43.9 [facility] Comment on above: Performed By: #### L 506.0400, L100.0100, L509.6001, L500.4050, L501.9520 ####[facility] [address] [place], [address] WBC (Bld) [#/Vol] 3.5 10*3/uL Low 4.4-11.0 [facility] Comment on above: Performed By: #### L 506.0400, L100.0100, L509.6001, L500.4050, L501.9520 ####[facility] [address] [place], [address] Carbon dioxide, total [Moles /volume] in Central venous bloodOrdered By: Ottoniel Cabrera on 04-14-2025 CO2 [Moles/Vol] 24.6 mmol/L 21.0-32.0 [facility] Chloride assayOrdered By: Elaine Cabrera on 04-14-2025 Chloride [Moles/Vol] 106 mmol/L 98-108 [facility] Comprehensive Metabolic Prof ilon 04-14-2025 Albumin [Mass/Vol] 4.3 g/dL Normal 3.5-5.0 [facility] Comment on above: Performed By: #### L 506.0400, L100.0100, L509.6001, L500.4050, L501.9520 ####[facility] [address] [place], [address] Albumin/Globulin [Mass ratio] 1.6 {ratio} Normal 0.9-2.4 [facility] Comment on above: Performed By: #### L 506.0400, L100.0100, L509.6001, L500.4050, L501.9520 ####[facility] [address] [place], [address] ALK PHOS 121 U/L High 35-104 [facility] Comment on above: Performed By: #### L 506.0400, L100.0100, L509.6001, L500.4050, L501.9520 ####[facility] [address] [place], [address] ALT [Catalytic activity/Vol] 223 U/L High <=34 [facility] Comment on above: Performed By: #### L 506.0400, L100.0100, L509.6001, L500.4050, L501.9520 ####[facility] [address] [place], [address] AST [Catalytic activity/Vol] 90 U/L High <=31 [facility] Comment on above: Performed By: #### L 506.0400, L100.0100, L509.6001, L500.4050, L501.9520 ####[facility] [address] [place], [address] Bilirubin [Mass/Vol] 0.24 mg/dL Normal 0.00-1.30 [facility] Comment on above: Performed By: #### L 506.0400, L100.0100, L509.6001, L500.4050, L501.9520 ####[facility] [address] [place], [address] BUN/CRE 25.2 RATIO High 10-20 [facility] Comment on above: Performed By: #### L 506.0400, L100.0100, L509.6001, L500.4050, L501.9520 ####[facility] [address] [place], [address] Calcium [Mass/Vol] 9.4 mg/dL Normal 7.6-11.0 [facility] Comment on above: Performed By: #### L 506.0400, L100.0100, L509.6001, L500.4050, L501.9520 ####[facility] [address] [place], [address] Chloride [Moles/Vol] 106 mmol/L Normal 98-108 [facility] Comment on above: Performed By: #### L 506.0400, L100.0100, L509.6001, L500.4050, L501.9520 ####[facility] [address] [place], [address] CO2 [Moles/Vol] 24.6 mmol/L Normal 21.0-32.0 [facility] Comment on above: Performed By: #### L 506.0400, L100.0100, L509.6001, L500.4050, L501.9520 ####[facility] [address] [place], [address] Creatinine [Mass/Vol] 0.52 mg/dL Low 0.70-1.20 [facility] Comment on above: Performed By: #### L 506.0400, L100.0100, L509.6001, L500.4050, L501.9520 ####[facility] [address] [place], [address] ECRCL 121.17 ml/min Normal 50-250 [facility] Comment on above: Performed By: #### L 506.0400, L100.0100, L509.6001, L500.4050, L501.9520 ####[facility] [address] [place], [address] GAP 12 Normal 5-15 [facility] Comment on above: Performed By: #### L 506.0400, L100.0100, L509.6001, L500.4050, L501.9520 ####[facility] [address] [place], [address] GFR/1.73 sq M.predicted among non-blacks MDRD (S/P/Bld) [Vol rate/Area] 113 mL/min/{1.73_m2} Normal >60 [facility] Comment on above: Result Comment: mL/m in/1.73m2 CKD-EPI Creatinine Equation (2020) Performed By: #### L 506.0400, L100.0100, L509.6001, L500.4050, L501.9520 ####[facility] [address] [place], [address] Globulin (S) [Mass/Vol] 2.7 g/dL Normal 2.2-4.2 [facility] Comment on above: Performed By: #### L 506.0400, L100.0100, L509.6001, L500.4050, L501.9520 ####[facility] [address] [place], [address] Glucose [Mass/Vol] 110 mg/dL High 70-99 [facility] Comment on above: Performed By: #### L 506.0400, L100.0100, L509.6001, L500.4050, L501.9520 ####[facility] [address] [place], [address] Potassium [Moles/Vol] 3.8 mmol/L Normal 3.3-5.1 [facility] Comment on above: Performed By: #### L 506.0400, L100.0100, L509.6001, L500.4050, L501.9520 ####[facility] [address] [place], [address] Sodium [Moles/Vol] 143 mmol/L Normal 133-145 [facility] Comment on above: Performed By: #### L 506.0400, L100.0100, L509.6001, L500.4050, L501.9520 ####[facility] [address] [place], [address] T PROT 7.0 g/dL Normal 5.9-8.4 [facility] Comment on above: Performed By: #### L 506.0400, L100.0100, L509.6001, L500.4050, L501.9520 ####[facility] [address] [place], [address] Urea nitrogen [Mass/Vol] 13 mg/dL Normal 4-19 [facility] Comment on above: Performed By: #### L 506.0400, L100.0100, L509.6001, L500.4050, L501.9520 ####[facility] [address] [place], [address] Eosinophil percentageOrdered By: Ottoniel Cabrera on 04-14-2025 Eosinophils/100 WBC (Bld) 0.3 % 0-5 [facility] Erythrocyte distribution wid th ratioOrdered By: Ottoniel Cabrera on 04-14-2025 Erythrocyte distribution width (RBC) [Ratio] 13.3 % 11.6-14.6 [facility] Erythrocyte distribution wid th standard deviationOrdered By: Ottoniel Cabrera on 04-14-2025 Erythrocyte distribution width (RBC) [Ratio] 42.5 fl 35.1-43.9 [facility] Glomerular filtration rate ( GFR) estimation/1.73 sq m using serum, plasma, or whole bOrdered By: Ottoniel Cabrera on 04-14-2025 GFR/1.73 sq M.predicted among non-blacks MDRD (S/P/Bld) [Vol rate/Area] 113 mL/min/{1.73_m2} >60 [facility] Comment on above: mL/min/1.73m2 CKD-EP I Creatinine Equation (2020) Hematocrit Auto (Bld) [Volum e fraction]Ordered By: Ottoniel Cabrera on 04-14-2025 Hematocrit (Bld) [Volume fraction] 35.6 % Low 37-47 [facility] Hemoglobin measurementOrdere d By: Ottoniel Cabrera on 04-14-2025 Hemoglobin (Bld) [Mass/Vol] 11.9 g/dL Low 12.0-15.0 [facility] Immature granulocytes/100 WB C Auto (Bld)Ordered By: Ottoniel Cabrera on 04-14-2025 Immature granulocytes/100 WBC (Bld) 0.000 % 0.0-0.9 [facility] Comment on above: IG% - Immature Granu locytes (promyelocytes, myelocytes and metamyelocytes) > 1% indicates that a LEFT SHIFT is Present. L509.6001on 04-14-2025 CORTISOL 7.08 ug/dL Normal 6.02-18.40 [facility] Comment on above: Performed By: #### L 506.0400, L100.0100, L509.6001, L500.4050, L501.9520 ####[facility] [address] [place], [place], [address] Laboratory - Chemistry and C hemistry - challengeOrdered By: Ottoniel Cabrera on 04-14-2025 AST [Catalytic activity/Vol] 90 U/L High <32 [facility] MCV (mean corpuscular volume ) determinationOrdered By: Ottoniel Cabrera on 04-14-2025 MCV (RBC) [Entitic vol] 89.2 fL 81-99 [facility] Mean corpuscular hemoglobin (MCH) determinationOrdered By: Ottoniel Cabrera on 04-14-2025 MCH (RBC) [Entitic mass] 29.8 pg 27.0-32.0 [facility] Mean corpuscular hemoglobin concentration (MCHC) determinationOrdered By: Ottoniel Cabrera on 04-14-2025 MCHC (RBC) [Mass/Vol] 33.4 g/dL 32-36 [facility] Mean platelet volume determi nationOrdered By: Ottoniel Cabrera on 04-14-2025 Platelet mean volume (Bld) [Entitic vol] 9.0 fL 6.2-12.0 [facility] Monocyte percentageOrdered B y: Ottoniel Cabrera on 04-14-2025 Monocytes/100 WBC (Bld) 10.5 % High 0-10 [facility] Neutrophil percentageOrdered By: Ottoniel Cabrera on 04-14-2025 Neutrophils/100 WBC (Bld) 34.6 % Low 47-70 [facility] Nucleated red blood cell per centageOrdered By: Ottoniel Cabrera on 04-14-2025 Nucleated RBC/100 WBC (Bld) [Ratio] 0 % 0-5 [facility] Oncology Visit Reporton 03-18 Oncology Visit Report Normal [facility] Platelet countOrdered By: Elaine Cabrera on 04-14-2025 Platelets (Bld) [#/Vol] 163 10*3/uL 150-450 [facility] Potassium measurement (mass/ volume)Ordered By: Ottoniel Cabrera on 04-14-2025 Potassium (Unsp spec) [Mass/Vol] 3.8 mmol/L 3.3-5.1 [facility] RBC Auto (Bld) [#/Vol]Ordere d By: Ottoniel Cabrera on 04-14-2025 RBC (Bld) [#/Vol] 3.99 10*6/uL Low 4.2-5.4 [facility] Serum creatinine measurement (mass/volume)Ordered By: Ottoniel Cabrera on 04-14-2025 Creatinine [Mass/Vol] 0.52 mg/dL Low 0.70-1.20 [facility] Serum globulin measurementOr dered By: Ottoniel Cabrera on 04-14-2025 Globulin (S) [Mass/Vol] 2.7 g/dL 2.2-4.2 [facility] Serum glucose measurement (m ass/volume)Ordered By: Ottoniel Cabrera on 04-14-2025 Glucose [Mass/Vol] 110 mg/dL High 70-99 [facility] Serum or plasma alanine durán otransferase (ALT) measurementOrdered By: Ottoniel Cabrera on 04-14-2025 ALT [Catalytic activity/Vol] 223 U/L High <35 [facility] Serum or plasma albumin radha urement (mass/volume)Ordered By: Ottoniel Cabrera on 04-14-2025 Albumin [Mass/Vol] 4.3 g/dL 3.5-5.0 [facility] Serum or plasma albumin/glob ulin mass ratioOrdered By: Ottoniel Cabrera on 04-14-2025 Albumin/Globulin [Mass ratio] 1.6 {ratio} 0.9-2.4 [facility] Serum or plasma alkaline malaika sphatase measurementOrdered By: Ottoniel Cabrera on 04-14-2025 ALP [Catalytic activity/Vol] 121 U/L High 35-104 [facility] Serum or plasma calcium radha urement (mass/volume)Ordered By: Ottoniel Cabrera on 04-14-2025 Calcium [Mass/Vol] 9.4 mg/dL 7.6-11.0 [facility] Serum or plasma cortisol mika surement (mass/volume)Ordered By: Ottoniel Cabrera on 04-14-2025 Cortisol [Mass/Vol] 7.08 ug/dL 6.02-18.40 [facility] Serum or plasma urea nitroge n measurement (mass/volume)Ordered By: Ottoniel Cabrera on 04-14-2025 Urea nitrogen [Mass/Vol] 13 mg/dL 4-19 [facility] Sodium levelOrdered By: Jan Cabrera on 04-14-2025 Sodium [Moles/Vol] 143 mmol/L 133-145 [facility] T4 Free Directon 04-14-2025 T4 FREE DIRECT 0.90 ng/dL Normal 0.76-1.46 [facility] Comment on above: Performed By: #### L 506.0400, L100.0100, L509.6001, L500.4050, L501.9520 ####[facility] [address] [place], [place], [id number] T4 freeOrdered By: Ottoniel benton on 04-14-2025 Free T4 [Mass/Vol] 0.90 ng/dL 0.76-1.46 [facility] TSH DL <= 0.005 mIU/L QnOrde red By: Ottoniel Cabrera on 04-14-2025 TSH Qn 1.580 uIU/mL 0.300-4.200 [facility] Thyroid Stim Hormone (TSH)on 04-14-2025 TSH 1.580 uIU/mL Normal 0.300-4.200 [facility] Comment on above: Performed By: #### L 506.0400, L100.0100, L509.6001, L500.4050, L501.9520 ####[facility] [address] [place], [address] Total proteinOrdered By: Jesus Cabrera on 04-14-2025 Protein [Mass/Vol] 7.0 g/dL 5.9-8.4 [facility] White blood cell (WBC) count Ordered By: Ottoniel Cabrera on 04-14-2025 WBC (Bld) [#/Vol] 3.5 10*3/uL Low 4.4-11.0 [facility] Comprehensive Metabolic Prof ilon 04-07-2025 Albumin [Mass/Vol] 4.4 g/dL Normal 3.5-5.0 [facility] Comment on above: Performed By: #### L 100.0100, L500.4050, L503.0106, L506.0200, L504.2610, L503.6550, L503.6030 ####[facility] [address] [place], [address] Albumin/Globulin [Mass ratio] 1.5 {ratio} Normal 0.9-2.4 [facility] Comment on above: Performed By: #### L 100.0100, L500.4050, L503.0106, L506.0200, L504.2610, L503.6550, L503.6030 ####[facility] [address] [place], [address] ALK PHOS 128 U/L High 35-104 [facility] Comment on above: Performed By: #### L 100.0100, L500.4050, L503.0106, L506.0200, L504.2610, L503.6550, L503.6030 ####[facility] [address] [place], [address] ALT [Catalytic activity/Vol] 123 U/L High <=34 [facility] Comment on above: Performed By: #### L 100.0100, L500.4050, L503.0106, L506.0200, L504.2610, L503.6550, L503.6030 ####[facility] [address] [place], [address] AST [Catalytic activity/Vol] 55 U/L High <=31 [facility] Comment on above: Performed By: #### L 100.0100, L500.4050, L503.0106, L506.0200, L504.2610, L503.6550, L503.6030 ####[facility] [address] [place], [place], [phone] Bilirubin [Mass/Vol] 0.21 mg/dL Normal 0.00-1.30 [facility] Comment on above: Performed By: #### L 100.0100, L500.4050, L503.0106, L506.0200, L504.2610, L503.6550, L503.6030 ####[facility] [address] [place], [place], [phone] BUN/CRE 20.6 RATIO High 10-20 [facility] Comment on above: Performed By: #### L 100.0100, L500.4050, L503.0106, L506.0200, L504.2610, L503.6550, L503.6030 ####[facility] [address] [place], [place], [phone] Calcium [Mass/Vol] 9.4 mg/dL Normal 7.6-11.0 [facility] Comment on above: Performed By: #### L 100.0100, L500.4050, L503.0106, L506.0200, L504.2610, L503.6550, L503.6030 ####[facility] [address] [place], [address] Chloride [Moles/Vol] 104 mmol/L Normal 98-108 [facility] Comment on above: Performed By: #### L 100.0100, L500.4050, L503.0106, L506.0200, L504.2610, L503.6550, L503.6030 ####[facility] [address] [place], [address] CO2 [Moles/Vol] 25.0 mmol/L Normal 21.0-32.0 [facility] Comment on above: Performed By: #### L 100.0100, L500.4050, L503.0106, L506.0200, L504.2610, L503.6550, L503.6030 ####[facility] [address] [place], [place], [phone](868) Creatinine [Mass/Vol] 0.53 mg/dL Low 0.70-1.20 [facility] Comment on above: Performed By: #### L 100.0100, L500.4050, L503.0106, L506.0200, L504.2610, L503.6550, L503.6030 ####[facility] [address] [place], [place], [phone](454) ECRCL 118.88 ml/min Normal 50-250 [facility] Comment on above: Performed By: #### L 100.0100, L500.4050, L503.0106, L506.0200, L504.2610, L503.6550, L503.6030 ####[facility] [address] [place], [address] GAP 11 Normal 5-15 [facility] Comment on above: Performed By: #### L 100.0100, L500.4050, L503.0106, L506.0200, L504.2610, L503.6550, L503.6030 ####[facility] [address] [place], [address] GFR/1.73 sq M.predicted among non-blacks MDRD (S/P/Bld) [Vol rate/Area] 113 mL/min/{1.73_m2} Normal >60 [facility] Comment on above: Result Comment: mL/m in/1.73m2 CKD-EPI Creatinine Equation (2020) Performed By: #### L 100.0100, L500.4050, L503.0106, L506.0200, L504.2610, L503.6550, L503.6030 ####[facility] [address] [place], [address] Globulin (S) [Mass/Vol] 2.9 g/dL Normal 2.2-4.2 [facility] Comment on above: Performed By: #### L 100.0100, L500.4050, L503.0106, L506.0200, L504.2610, L503.6550, L503.6030 ####[facility] [address] [place], [address] Glucose [Mass/Vol] 100 mg/dL High 70-99 [facility] Comment on above: Performed By: #### L 100.0100, L500.4050, L503.0106, L506.0200, L504.2610, L503.6550, L503.6030 ####[facility] [address] [place], [address] Potassium [Moles/Vol] 3.8 mmol/L Normal 3.3-5.1 [facility] Comment on above: Performed By: #### L 100.0100, L500.4050, L503.0106, L506.0200, L504.2610, L503.6550, L503.6030 ####[facility] [address] [place], [address] Sodium [Moles/Vol] 140 mmol/L Normal 133-145 [facility] Comment on above: Performed By: #### L 100.0100, L500.4050, L503.0106, L506.0200, L504.2610, L503.6550, L503.6030 ####[facility] [address] [place], [address] T PROT 7.2 g/dL Normal 5.9-8.4 [facility] Comment on above: Performed By: #### L 100.0100, L500.4050, L503.0106, L506.0200, L504.2610, L503.6550, L503.6030 ####[facility] [address] [place], [address] Urea nitrogen [Mass/Vol] 11 mg/dL Normal 4-19 [facility] Comment on above: Performed By: #### L 100.0100, L500.4050, L503.0106, L506.0200, L504.2610, L503.6550, L503.6030 ####[facility] [address] [place], [address] Ferritinon 04-07-2025 Ferritin [Mass/Vol] 896 ng/mL High 22-378 [facility] Comment on above: Performed By: #### L 100.0100, L500.4050, L503.0106, L506.0200, L504.2610, L503.6550, L503.6030 ####[facility] [address] [place], [place], [phone] Folate [Mass/volume] in Seru m or PlasmaOrdered By: Ottoniel Cabrera on 04-07-2025 Folate [Mass/Vol] 19.80 ng/mL 4.60-34.80 [facility] Folates,Serum (Folic Acid)on 04-07-2025 FOLATES,SERUM 19.80 ng/mL Normal 4.60-34.80 [facility] Comment on above: Order Comment: N Performed By: #### L 100.0100, L500.4050, L503.0106, L506.0200, L504.2610, L503.6550, L503.6030 ####[facility] [address] [place], [address] Iron measurement (mass/mass) Ordered By: Ottoniel Cabrera on 04-07-2025 Iron (Unsp spec) [Mass/Mass] 128 ug/dL 50-170 [facility] Iron+Iron Binding Capacityon 04-07-2025 Iron [Mass/Vol] 128 ug/dL Normal 50-170 [facility] Comment on above: Performed By: #### L 100.0100, L500.4050, L503.0106, L506.0200, L504.2610, L503.6550, L503.6030 ####[facility] [address] [place], [address] IRON SATURATION 52.7 Normal 13-59 [facility] Comment on above: Performed By: #### L 100.0100, L500.4050, L503.0106, L506.0200, L504.2610, L503.6550, L503.6030 ####[facility] [address] [place], [address] TIBC 243 ug/dL Low 250-450 [facility] Comment on above: Performed By: #### L 100.0100, L500.4050, L503.0106, L506.0200, L504.2610, L503.6550, L503.6030 ####[facility] [address] [place], [address] UIBC 115 ug/dL Low 228-428 [facility] Comment on above: Performed By: #### L 100.0100, L500.4050, L503.0106, L506.0200, L504.2610, L503.6550, L503.6030 ####[facility] [address] [place], [address] LDHon 04-07-2025 LDH 209 U/L Normal 84-246 [facility] Comment on above: Order Comment: 1 Performed By: #### L 100.0100, L500.4050, L503.0106, L506.0200, L504.2610, L503.6550, L503.6030 ####[facility] [address] [place], [place], [id number] Lactate dehydrogenase (LDH) measurementOrdered By: Ottoniel Cabrera on 04-07-2025 LDH [Catalytic activity/Vol] 209 U/L 84-246 [facility] No Panel InformationOrdered By: Ottoniel Cabrera on 04-07-2025 Unsaturated Iron Binding Capacity 115 ug/dL Low 228-428 [facility] Oncology Visit Reporton 03-18 Oncology Visit Report Normal [facility] Review by pathologistOrdered By: Ottoniel Cabrera on 04-07-2025 Pathologist review Yovanny (Unsp spec) [Interp] Cierra rashid [facility] Pathologist review Yovanny (Unsp spec) [Interp] Reviewed [facility] Comment on above: Previous reported re sult: Cierra rashid Edited by: KELSI on 04/23/25:0915SEE REPORT IN PATIENT'S EMR AMENDED REPORT 04/23/25914 PATH REV previously reported as: Cierra rashid Serum or plasma ferritin mika surement (mass/volume)Ordered By: Ottoniel Cabrera on 04-07-2025 Ferritin [Mass/Vol] 896 ng/mL High 22-378 [facility] Serum or plasma iron saturat ion measurement (mass fraction)Ordered By: Ottoniel Cabrera on 04-07-2025 Iron saturation [Mass fraction] 52.7 % 13-59 [facility] Vitamin B12on 04-07-2025 Cobalamin (Vitamin B12) [Mass/Vol] 606 pg/mL Normal 180-914 [facility] Comment on above: Performed By: #### L 100.0100, L500.4050, L503.0106, L506.0200, L504.2610, L503.6550, L503.6030 ####[facility] [address] [place], [address] Vitamin B12 ser/plasOrdered By: Ottoniel Cabrera on 04-07-2025 Cobalamin (Vitamin B12) [Mass/Vol] 606 pg/mL 180-914 [facility] CBC W/Diff, Automatedon 03-17 Absolute Lymph 1.67 X10 3/uL Normal 0.83-4.51 [facility] Comment on above: Performed By: #### L 100.0100, L500.4050, L501.5200 ####[facility] [address] [place], [address] Absolute Neut 2.2 X10 3/uL Normal 2.0-7.7 [facility] Comment on above: Performed By: #### L 100.0100, L500.4050, L501.5200 ####[facility] [address] [place], [address] Basophils/100 WBC (Bld) 0.5 % Normal 0-1 [facility] Comment on above: Performed By: #### L 100.0100, L500.4050, L501.5200 ####[facility] [address] [place], [address] Eosinophils/100 WBC (Bld) 0.7 % Normal 0-5 [facility] Comment on above: Performed By: #### L 100.0100, L500.4050, L501.5200 ####[facility] [address] [place], [address] Erythrocyte distribution width (RBC) [Ratio] 12.1 % Normal 11.6-14.6 [facility] Comment on above: Performed By: #### L 100.0100, L500.4050, L501.5200 ####[facility] [address] [place], [address] Hematocrit (Bld) [Volume fraction] 35.0 % Low 37-47 [facility] Comment on above: Performed By: #### L 100.0100, L500.4050, L501.5200 ####[facility] [address] [place], [address] Hemoglobin (Bld) [Mass/Vol] 11.5 g/dL Low 12.0-15.0 [facility] Comment on above: Performed By: #### L 100.0100, L500.4050, L501.5200 ####[facility] [address] [place], [address] IG% 0.700 Normal 0.0-0.9 [facility] Comment on above: Result Comment: IG% - Immature Granulocytes (promyelocytes, myelocytes andmetamyelocytes) > 1% indicates that a LEFT SHIFT is Present. Performed By: #### L 100.0100, L500.4050, L501.5200 ####[facility] [address] [place], [address] Lymphocytes/100 WBC (Bld) 39.7 % Normal 19-41 [facility] Comment on above: Performed By: #### L 100.0100, L500.4050, L501.5200 ####[facility] [address] [place], [address] MCH (RBC) [Entitic mass] 29.2 pg Normal 27.0-32.0 [facility] Comment on above: Performed By: #### L 100.0100, L500.4050, L501.5200 ####[facility] [address] [place], [address] MCHC (RBC) [Mass/Vol] 32.9 g/dL Normal 32-36 [facility] Comment on above: Performed By: #### L 100.0100, L500.4050, L501.5200 ####[facility] [address] [place], [address] MCV (RBC) [Entitic vol] 88.8 fL Normal 81-99 [facility] Comment on above: Performed By: #### L 100.0100, L500.4050, L501.5200 ####[facility] [address] [place], [address] Monocytes/100 WBC (Bld) 5.9 % Normal 0-10 [facility] Comment on above: Performed By: #### L 100.0100, L500.4050, L501.5200 ####[facility] [address] [place], [address] Neutrophils/100 WBC (Bld) 52.5 % Normal 47-70 [facility] Comment on above: Performed By: #### L 100.0100, L500.4050, L501.5200 ####[facility] [address] [place], [address] Nucleated RBC (Bld) [#/Vol] 0 10*3/uL Normal 0-5 [facility] Comment on above: Performed By: #### L 100.0100, L500.4050, L501.5200 ####[facility] [address] [place], [address] Platelet mean volume (Bld) [Entitic vol] 9.7 fL Normal 6.2-12.0 [facility] Comment on above: Performed By: #### L 100.0100, L500.4050, L501.5200 ####[facility] [address] [place], [address] Platelets (Bld) [#/Vol] 224 10*3/uL Normal 150-450 [facility] Comment on above: Performed By: #### L 100.0100, L500.4050, L501.5200 ####[facility] [address] [place], [address] RBC (Bld) [#/Vol] 3.94 10*6/uL Low 4.2-5.4 [facility] Comment on above: Performed By: #### L 100.0100, L500.4050, L501.5200 ####[facility] [address] [place], [address] RDW SD 39.7 fl Normal 35.1-43.9 [facility] Comment on above: Performed By: #### L 100.0100, L500.4050, L501.5200 ####[facility] [address] [place], [address] WBC (Bld) [#/Vol] 4.2 10*3/uL Low 4.4-11.0 [facility] Comment on above: Performed By: #### L 100.0100, L500.4050, L501.5200 ####[facility] [address] [place], [address] Comprehensive Metabolic Prof [facility] 04-01-2025 Albumin [Mass/Vol] 4.2 g/dL Normal 3.5-5.0 [facility] Comment on above: Performed By: #### L 100.0100, L500.4050, L501.5200 ####[facility] [address] [place], [address] Albumin/Globulin [Mass ratio] 1.3 {ratio} Normal 0.9-2.4 [facility] Comment on above: Performed By: #### L 100.0100, L500.4050, L501.5200 ####[facility] [address] [place], [address] ALK PHOS 134 U/L High 35-104 [facility] Comment on above: Performed By: #### L 100.0100, L500.4050, L501.5200 ####[facility] [address] [place], [address] ALT [Catalytic activity/Vol] 152 U/L High <=34 [facility] Comment on above: Performed By: #### L 100.0100, L500.4050, L501.5200 ####[facility] [address] [place], [address] AST [Catalytic activity/Vol] 57 U/L High <=31 [facility] Comment on above: Performed By: #### L 100.0100, L500.4050, L501.5200 ####[facility] [address] [place], [address] Bilirubin [Mass/Vol] 0.34 mg/dL Normal 0.00-1.30 [facility] Comment on above: Performed By: #### L 100.0100, L500.4050, L501.5200 ####[facility] [address] [place], [address] BUN/CRE 29.9 RATIO High 10-20 [facility] Comment on above: Performed By: #### L 100.0100, L500.4050, L501.5200 ####[facility] [address] [place], [address] Calcium [Mass/Vol] 9.4 mg/dL Normal 7.6-11.0 [facility] Comment on above: Performed By: #### L 100.0100, L500.4050, L501.5200 ####[facility] [address] [place], [address] Chloride [Moles/Vol] 103 mmol/L Normal 98-108 [facility] Comment on above: Performed By: #### L 100.0100, L500.4050, L501.5200 ####[facility] [address] [place], [address] CO2 [Moles/Vol] 23.9 mmol/L Normal 21.0-32.0 [facility] Comment on above: Performed By: #### L 100.0100, L500.4050, L501.5200 ####[facility] [address] [place], [address] Creatinine [Mass/Vol] 0.54 mg/dL Low 0.70-1.20 [facility] Comment on above: Performed By: #### L 100.0100, L500.4050, L501.5200 ####[facility] [address] [place], [address] ECRCL 116.68 ml/min Normal 50-250 [facility] Comment on above: Performed By: #### L 100.0100, L500.4050, L501.5200 ####[facility] [address] [place], [address] GAP 13 Normal 5-15 [facility] Comment on above: Performed By: #### L 100.0100, L500.4050, L501.5200 ####[facility] [address] [place], [address] GFR/1.73 sq M.predicted among non-blacks MDRD (S/P/Bld) [Vol rate/Area] 112 mL/min/{1.73_m2} Normal >60 [facility] Comment on above: Result Comment: mL/m in/1.73m2 CKD-EPI Creatinine Equation (2020) Performed By: #### L 100.0100, L500.4050, L501.5200 ####[facility] [address] [place], [address] Globulin (S) [Mass/Vol] 3.2 g/dL Normal 2.2-4.2 [facility] Comment on above: Performed By: #### L 100.0100, L500.4050, L501.5200 ####[facility] [address] [place], [address] Glucose [Mass/Vol] 134 mg/dL High 70-99 [facility] Comment on above: Performed By: #### L 100.0100, L500.4050, L501.5200 ####[facility] [address] [place], [address] Potassium [Moles/Vol] 3.6 mmol/L Normal 3.3-5.1 [facility] Comment on above: Performed By: #### L 100.0100, L500.4050, L501.5200 ####[facility] [address] [place], [address] Sodium [Moles/Vol] 140 mmol/L Normal 133-145 [facility] Comment on above: Performed By: #### L 100.0100, L500.4050, L501.5200 ####[facility] [address] [place], [address] T PROT 7.4 g/dL Normal 5.9-8.4 [facility] Comment on above: Performed By: #### L 100.0100, L500.4050, L501.5200 ####[facility] [address] [place], [address] Urea nitrogen [Mass/Vol] 16 mg/dL Normal 4-19 [facility] Comment on above: Performed By: #### L 100.0100, L500.4050, L501.5200 ####[facility] [address] [place], [address] Magnesiumon 04-01-2025 Magnesium [Mass/Vol] 1.9 mg/dL Normal 1.5-2.2 [facility] Comment on above: Performed By: #### L 100.0100, L500.4050, L501.5200 ####[facility] [address] [place], [address] Magnesium measurement (mass/ volume)Ordered By: Chayo Black on 04-01-2025 Magnesium (Unsp spec) [Mass/Vol] 1.9 mg/dL 1.5-2.2 [facility] Oncology Visit Reporton 03-17 Oncology Visit Report Normal [facility] Venous Duplex US, Unilateral on 04-01-2025 Venous Duplex US, Unilateral Normal [facility] Venous duplex ultrasound rep ortOrdered By: Augustine Pickens on 04-01-[address] [facility] [address] [place] [address] Venous Duplex US, Unilateral 04/01/25 0955 MR#: [id number] Acct: [id number] Name: ROSARIO KAIS[facility] Rep #:[id number] : 1975 49 From: Augustine Pickens MD Attending Dr: Chayo Black, CAN CRIMPER-C Status: REG CLI Ordering Dr: Chayo Black NP CAN CRIMPER-C Da te: 04/01/25 Location: [facility] Sex: F C Admitted: Reason For Study Reason For Study: RLE PAIN RIGHT LEFT GSV is normal. CFV is compressible, spontaneous, phasic, competent, CFV is compressible, spontaneous, phasic, competent and demonstrates normal augmentation. and demonstrates normal augmentation. FV is compressible, spontaneous, phasic, competent and demonstrates normal augmentation. POP V is compressible, spontaneous, phasic, competent and demonstrates normal augmentation. T/P Trunk is compressible. PTV is compressible. RT PerV is compressible. Procedure This is a venous duplex using B-mode, color flow and spectral Doppler. Exam performed in department. A preliminary report was called and/or faxed to Chayo Black @ [phone]. VL/Venous Duplex US, Unilateral Interpretation Summary Deep veins of the right lower extremity are patent and compressible segmentally.There is no evidence of right lower extremity deep vein thrombosis. Valvular competence appears intact within the proximal deep venous system on the right . The right great saphenous vein appears patent and compressible segmentally. The left common femoral vein is patent and compressible . Ordering Physician: Chayo Black Referring Physician: Joann Live Performed By: Maggie Tavarez, RDCS, RVT 04/01/252058 Date _ Augustine Pickens MD CC: CAN CRIMPER-C Chayo Black; Dr. Joann Live MD ~ Date Dictated: 04/01/25954 Date Transcribed: 04/01/252058 [employer] Supervisor: Signed [facility] Work Phone: Absolute lymphocyte countOrd ered By: Chayo Black on 03-24-2025 Lymphocytes Auto (Unsp spec) [#/Vol] 2.05 10*3/uL 0.83-4.51 [facility] Absolute neutrophil countOrd ered By: Chayo Black on 03-24-2025 Neutrophils (Bld) [#/Vol] 3.6 10*3/uL 2.0-7.7 [facility] Anion gap in Serum or Plasma Ordered By: Chayo Black on 03-24-2025 Anion gap [Moles/Vol] 12 mmol/L 5-15 [facility] Automated lymphocyte count a s percentage of total leukocytesOrdered By: Chayo Black on 03-24-2025 Lymphocytes/100 WBC Auto (Unsp spec) 32.9 % 19-41 [facility] BUN/creatinine ratioOrdered By: Chayo Black on 03-24-2025 Urea nitrogen/Creatinine [Mass ratio] 17.8 mg/mg 10-20 [facility] Basophil percentageOrdered B y: Chayo Wayne on 03-24-2025 Basophils/100 WBC (Bld) 0.3 % 0-1 [facility] Bilirubin, totalOrdered By: Chayo JustinWayne on 03-24-2025 Bilirubin [Mass/Vol] 0.34 mg/dL 0.00-1.30 [facility] CBC W/Diff, Automatedon Absolute Lymph 2.05 X10 3/uL Normal 0.83-4.51 [facility] Comment on above: Performed By: #### L 509.6001, L500.4050, L501.5200, L100.0100 ####[facility] [id number] [place], [address] Absolute Neut 3.6 X10 3/uL Normal 2.0-7.7 [facility] Comment on above: Performed By: #### L 509.6001, L500.4050, L501.5200, L100.0100 ####[facility] [address] [place], [address] Basophils/100 WBC (Bld) 0.3 % Normal 0-1 [facility] Comment on above: Performed By: #### L 509.6001, L500.4050, L501.5200, L100.0100 ####[facility] [address] [place], [address] Eosinophils/100 WBC (Bld) 0.6 % Normal 0-5 [facility] Comment on above: Performed By: #### L 509.6001, L500.4050, L501.5200, L100.0100 ####[facility] [address] [place], [address] Erythrocyte distribution width (RBC) [Ratio] 12.7 % Normal 11.6-14.6 [facility] Comment on above: Performed By: #### L 509.6001, L500.4050, L501.5200, L100.0100 ####[facility] [address] [place], [address] Hematocrit (Bld) [Volume fraction] 36.6 % Low 37-47 [facility] Comment on above: Performed By: #### L 509.6001, L500.4050, L501.5200, L100.0100 ####[facility] [address] [place], [address] Hemoglobin (Bld) [Mass/Vol] 11.9 g/dL Low 12.0-15.0 [facility] Comment on above: Performed By: #### L 509.6001, L500.4050, L501.5200, L100.0100 ####[facility] [address] [place], [address] IG% 0.200 Normal 0.0-0.9 [facility] Comment on above: Result Comment: IG% - Immature Granulocytes (promyelocytes, myelocytes andmetamyelocytes) > 1% indicates that a LEFT SHIFT is Present. Performed By: #### L 509.6001, L500.4050, L501.5200, L100.0100 ####[facility] [address] [place], [address] Lymphocytes/100 WBC (Bld) 32.9 % Normal 19-41 [facility] Comment on above: Performed By: #### L 509.6001, L500.4050, L501.5200, L100.0100 ####[facility] [address] [place], [address] MCH (RBC) [Entitic mass] 28.9 pg Normal 27.0-32.0 [facility] Comment on above: Performed By: #### L 509.6001, L500.4050, L501.5200, L100.0100 ####[facility] [address] [place], [address] MCHC (RBC) [Mass/Vol] 32.5 g/dL Normal 32-36 [facility] Comment on above: Performed By: #### L 509.6001, L500.4050, L501.5200, L100.0100 ####[facility] [address] [place], [address] MCV (RBC) [Entitic vol] 88.8 fL Normal 81-99 [facility] Comment on above: Performed By: #### L 509.6001, L500.4050, L501.5200, L100.0100 ####[facility] [address] [place], [address] Monocytes/100 WBC (Bld) 8.2 % Normal 0-10 [facility] Comment on above: Performed By: #### L 509.6001, L500.4050, L501.5200, L100.0100 ####[facility] [address] [place], [address] Neutrophils/100 WBC (Bld) 57.8 % Normal 47-70 [facility] Comment on above: Performed By: #### L 509.6001, L500.4050, L501.5200, L100.0100 ####[facility] [address] [place], [address] Nucleated RBC (Bld) [#/Vol] 0 10*3/uL Normal 0-5 [facility] Comment on above: Performed By: #### L 509.6001, L500.4050, L501.5200, L100.0100 ####[facility] [address] [place], [address] Platelet mean volume (Bld) [Entitic vol] 9.1 fL Normal 6.2-12.0 [facility] Comment on above: Performed By: #### L 509.6001, L500.4050, L501.5200, L100.0100 ####[facility] [address] [place], [address] Platelets (Bld) [#/Vol] 238 10*3/uL Normal 150-450 [facility] Comment on above: Performed By: #### L 509.6001, L500.4050, L501.5200, L100.0100 ####[facility] [address] [place], [address] RBC (Bld) [#/Vol] 4.12 10*6/uL Low 4.2-5.4 [facility] Comment on above: Performed By: #### L 509.6001, L500.4050, L501.5200, L100.0100 ####[facility] [address] [place], [address] RDW SD 41.3 fl Normal 35.1-43.9 [facility] Comment on above: Performed By: #### L 509.6001, L500.4050, L501.5200, L100.0100 ####[facility] [address] [place], [address] WBC (Bld) [#/Vol] 6.2 10*3/uL Normal 4.4-11.0 [facility] Comment on above: Performed By: #### L 509.6001, L500.4050, L501.5200, L100.0100 ####[facility] [address] [place], [address] Absolute Neut Normal 2.0-7.7 [facility] Comment on above: Result Comment: DUPL ICATE ON V#[id number] Performed By: #### L 100.0100 ####[facility] [address] [place], [address] Result Comment: DUPL ICATE; SEE H127 Performed By: #### L 100.0100, L506.0400, L501.9520 ####[facility] [address] [place], [address] HCT Normal 37-47 [facility] Comment on above: Result Comment: DUPL ICATE ON V#[id number] Performed By: #### L 100.0100 ####[facility] [address] [place], [address] Result Comment: DUPL ICATE; SEE H127 Performed By: #### L 100.0100, L506.0400, L501.9520 ####[facility] [address] [place], [address] HGB Normal 12.0-15.0 [facility] Comment on above: Result Comment: DUPL ICATE ON V#[id number] Performed By: #### L 100.0100 ####[facility] [address] [place], [address] Result Comment: DUPL ICATE; SEE H127 Performed By: #### L 100.0100, L506.0400, L501.9520 ####[facility] [address] [place], [address] MCH Normal 27.0-32.0 [facility] Comment on above: Result Comment: DUPL ICATE ON V#[id number] Performed By: #### L 100.0100 ####[facility] [address] [place], [address] Result Comment: DUPL ICATE; SEE H127 Performed By: #### L 100.0100, L506.0400, L501.9520 ####[facility] [address] [place], [address] MCHC Normal 32-36 [facility] Comment on above: Result Comment: DUPL ICATE ON V#[id number] Performed By: #### L 100.0100 ####[facility] [address] [place], [address] Result Comment: DUPL ICATE; SEE H127 Performed By: #### L 100.0100, L506.0400, L501.9520 ####[facility] [address] [place], [address] MCV Normal 81-99 [facility] Comment on above: Result Comment: DUPL ICATE ON V#[id number] Performed By: #### L 100.0100 ####[facility] [address] [place], [address] Result Comment: DUPL ICATE; SEE H127 Performed By: #### L 100.0100, L506.0400, L501.9520 ####[facility] [address] [place], [address] NEUT% Normal 47-70 [facility] Comment on above: Result Comment: DUPL ICATE ON V#[id number] Performed By: #### L 100.0100 ####[facility] [address] [place], [address] Result Comment: DUPL ICATE; SEE H127 Performed By: #### L 100.0100, L506.0400, L501.9520 ####[facility] [address] [place], [address] PLT Normal 150-450 [facility] Comment on above: Result Comment: DUPL ICATE ON V#[id number] Performed By: #### L 100.0100 ####[facility] [address] [place], [address] Result Comment: DUPL ICATE; SEE H127 Performed By: #### L 100.0100, L506.0400, L501.9520 ####[facility] [address] [place], [address] RBC Normal 4.2-5.4 [facility] Comment on above: Result Comment: DUPL ICATE ON V#[id number] Performed By: #### L 100.0100 ####[facility] [address] [place], [address] Result Comment: DUPL ICATE; SEE H127 Performed By: #### L 100.0100, L506.0400, L501.9520 ####[facility] [address] [place], [address] RDW CV Normal 11.6-14.6 [facility] Comment on above: Result Comment: DUPL ICATE ON V#[id number] Performed By: #### L 100.0100 ####[facility] [address] [place], [address] Result Comment: DUPL ICATE; SEE H127 Performed By: #### L 100.0100, L506.0400, L501.9520 ####[facility] [address] [place], [address] RDW SD Normal 35.1-43.9 [facility] Comment on above: Result Comment: DUPL ICATE ON V#[id number] Performed By: #### L 100.0100 ####[facility] [address] [place], [address] Result Comment: DUPL ICATE; SEE H127 Performed By: #### L 100.0100, L506.0400, L501.9520 ####[facility] [address] [place], [address] WBC Normal 4.4-11.0 [facility] Comment on above: Result Comment: DUPL ICATE ON V#[id number] Performed By: #### L 100.0100 ####[facility] [address] [place], [address] Result Comment: DUPL ICATE; SEE H127 Performed By: #### L 100.0100, L506.0400, L501.9520 ####[facility] [address] [place], [address] Carbon dioxide, total [Moles /volume] in Central venous bloodOrdered By: Chayo Wayne on 03-24-2025 CO2 [Moles/Vol] 25.3 mmol/L 21.0-32.0 [facility] Chloride assayOrdered By: Ty ra Wayne on 03-24-2025 Chloride [Moles/Vol] 103 mmol/L 98-108 [facility] Comprehensive Metabolic Prof ilon 03-24-2025 Albumin [Mass/Vol] 4.3 g/dL Normal 3.5-5.0 [facility] Comment on above: Performed By: #### L 509.6001, L500.4050, L501.5200, L100.0100 ####[facility] [address] [place], [address] Albumin/Globulin [Mass ratio] 1.4 {ratio} Normal 0.9-2.4 [facility] Comment on above: Performed By: #### L 509.6001, L500.4050, L501.5200, L100.0100 ####[facility] [address] [place], [address] ALK PHOS 122 U/L High 35-104 [facility] Comment on above: Performed By: #### L 509.6001, L500.4050, L501.5200, L100.0100 ####[facility] [address] [place], [address] ALT [Catalytic activity/Vol] 62 U/L High <=34 [facility] Comment on above: Performed By: #### L 509.6001, L500.4050, L501.5200, L100.0100 ####[facility] [address] [place], [address] AST [Catalytic activity/Vol] 35 U/L High <=31 [facility] Comment on above: Performed By: #### L 509.6001, L500.4050, L501.5200, L100.0100 ####[facility] [address] [place], [address] Bilirubin [Mass/Vol] 0.34 mg/dL Normal 0.00-1.30 [facility] Comment on above: Performed By: #### L 509.6001, L500.4050, L501.5200, L100.0100 ####[facility] [address] [place], [address] BUN/CRE 17.8 RATIO Normal 10-20 [facility] Comment on above: Performed By: #### L 509.6001, L500.4050, L501.5200, L100.0100 ####[facility] [address] [place], [address] Calcium [Mass/Vol] 9.8 mg/dL Normal 7.6-11.0 [facility] Comment on above: Performed By: #### L 509.6001, L500.4050, L501.5200, L100.0100 ####[facility] [address] [place], [address] Chloride [Moles/Vol] 103 mmol/L Normal 98-108 [facility] Comment on above: Performed By: #### L 509.6001, L500.4050, L501.5200, L100.0100 ####[facility] [address] [place], [address] CO2 [Moles/Vol] 25.3 mmol/L Normal 21.0-32.0 [facility] Comment on above: Performed By: #### L 509.6001, L500.4050, L501.5200, L100.0100 ####[facility] [address] [place], [address] Creatinine [Mass/Vol] 0.49 mg/dL Low 0.70-1.20 [facility] Comment on above: Performed By: #### L 509.6001, L500.4050, L501.5200, L100.0100 ####[facility] [address] [place], [address] ECRCL 128.58 ml/min Normal 50-250 [facility] Comment on above: Performed By: #### L 509.6001, L500.4050, L501.5200, L100.0100 ####[facility] [address] [place], [address] GAP 12 Normal 5-15 [facility] Comment on above: Performed By: #### L 509.6001, L500.4050, L501.5200, L100.0100 ####[facility] [address] [place], [address] GFR/1.73 sq M.predicted among non-blacks MDRD (S/P/Bld) [Vol rate/Area] 115 mL/min/{1.73_m2} Normal >60 [facility] Comment on above: Result Comment: mL/m in/1.73m2 CKD-EPI Creatinine Equation (2020) Performed By: #### L 509.6001, L500.4050, L501.5200, L100.0100 ####[facility] [address] [place], [address] Globulin (S) [Mass/Vol] 3.1 g/dL Normal 2.2-4.2 [facility] Comment on above: Performed By: #### L 509.6001, L500.4050, L501.5200, L100.0100 ####[facility] [address] [place], [address] Glucose [Mass/Vol] 96 mg/dL Normal 70-99 [facility] Comment on above: Performed By: #### L 509.6001, L500.4050, L501.5200, L100.0100 ####[facility] [address] [place], [address] Potassium [Moles/Vol] 3.9 mmol/L Normal 3.3-5.1 [facility] Comment on above: Performed By: #### L 509.6001, L500.4050, L501.5200, L100.0100 ####[facility] [address] [place], [address] Sodium [Moles/Vol] 141 mmol/L Normal 133-145 [facility] Comment on above: Performed By: #### L 509.6001, L500.4050, L501.5200, L100.0100 ####[facility] [address] [place], [address] T PROT 7.5 g/dL Normal 5.9-8.4 [facility] Comment on above: Performed By: #### L 509.6001, L500.4050, L501.5200, L100.0100 ####[facility] [address] [place], [address] Urea nitrogen [Mass/Vol] 9 mg/dL Normal 4-19 [facility] Comment on above: Performed By: #### L 509.6001, L500.4050, L501.5200, L100.0100 ####[facility] [address] [place], [address] Eosinophil percentageOrdered By: Chayo Black on 03-24-2025 Eosinophils/100 WBC (Bld) 0.6 % 0-5 [facility] Erythrocyte distribution wid th ratioOrdered By: Chayo Black on 03-24-2025 Erythrocyte distribution width (RBC) [Ratio] 12.7 % 11.6-14.6 [facility] Erythrocyte distribution wid th standard deviationOrdered By: Chayo Black on 03-24-2025 Erythrocyte distribution width (RBC) [Ratio] 41.3 fl 35.1-43.9 [facility] Glomerular filtration rate ( GFR) estimation/1.73 sq m using serum, plasma, or whole bOrdered By: Chayo Black on 03-24-2025 GFR/1.73 sq M.predicted among non-blacks MDRD (S/P/Bld) [Vol rate/Area] 115 mL/min/{1.73_m2} >60 [facility] Comment on above: mL/min/1.73m2 CKD-EP I Creatinine Equation (2020) Hematocrit Auto (Bld) [Volum e fraction]Ordered By: Chayo Black on 03-24-2025 Hematocrit (Bld) [Volume fraction] 36.6 % Low 37-47 [facility] Hemoglobin measurementOrdere d By: Chayo Black on 03-24-2025 Hemoglobin (Bld) [Mass/Vol] 11.9 g/dL Low 12.0-15.0 [facility] Immature granulocytes/100 WB C Auto (Bld)Ordered By: Chayo Black on 03-24-2025 Immature granulocytes/100 WBC (Bld) 0.200 % 0.0-0.9 [facility] Comment on above: IG% - Immature Granu locytes (promyelocytes, myelocytes and metamyelocytes) > 1% indicates that a LEFT SHIFT is Present. L509.6001on 03-24-2025 CORTISOL 11.30 ug/dL Normal 6.02-18.40 [facility] Comment on above: Performed By: #### L 509.6001, L500.4050, L501.5200, L100.0100 ####[facility] [address] [place], [place], [address] Laboratory - Chemistry and C hemistry - challengeOrdered By: Chayo Black on 03-24-2025 AST [Catalytic activity/Vol] 35 U/L High <32 [facility] MCV (mean corpuscular volume ) determinationOrdered By: Chayo Black on 03-24-2025 MCV (RBC) [Entitic vol] 88.8 fL 81-99 [facility] Magnesiumon 03-24-2025 Magnesium [Mass/Vol] 2.2 mg/dL Normal 1.5-2.2 [facility] Comment on above: Performed By: #### L 509.6001, L500.4050, L501.5200, L100.0100 ####[facility] [address] [place], [address] Magnesium measurement (mass/ volume)Ordered By: Chayo Black on 03-24-2025 Magnesium (Unsp spec) [Mass/Vol] 2.2 mg/dL 1.5-2.2 [facility] Mean corpuscular hemoglobin (MCH) determinationOrdered By: Chayo Black on 03-24-2025 MCH (RBC) [Entitic mass] 28.9 pg 27.0-32.0 [facility] Mean corpuscular hemoglobin concentration (MCHC) determinationOrdered By: Chayo Black on 03-24-2025 MCHC (RBC) [Mass/Vol] 32.5 g/dL 32-36 [facility] Mean platelet volume determi nationOrdered By: Chayo Black on 03-24-2025 Platelet mean volume (Bld) [Entitic vol] 9.1 fL 6.2-12.0 [facility] Monocyte percentageOrdered B y: Chayo Black on 03-24-2025 Monocytes/100 WBC (Bld) 8.2 % 0-10 [facility] Neutrophil percentageOrdered By: Chayo Black on 03-24-2025 Neutrophils/100 WBC (Bld) 57.8 % 47-70 [facility] Nucleated red blood cell per centageOrdered By: Chayo JustinWayne on 03-24-2025 Nucleated RBC/100 WBC (Bld) [Ratio] 0 % 0-5 [facility] Oncology Visit Reporton Oncology Visit Report Normal [facility] Platelet countOrdered By: Juan Black on 03-24-2025 Platelets (Bld) [#/Vol] 238 10*3/uL 150-450 [facility] Potassium measurement (mass/ volume)Ordered By: Chayo Black on 03-24-2025 Potassium (Unsp spec) [Mass/Vol] 3.9 mmol/L 3.3-5.1 [facility] RBC Auto (Bld) [#/Vol]Ordere d By: Chayo Black on 03-24-2025 RBC (Bld) [#/Vol] 4.12 10*6/uL Low 4.2-5.4 [facility] Serum creatinine measurement (mass/volume)Ordered By: Chayo Black on 03-24-2025 Creatinine [Mass/Vol] 0.49 mg/dL Low 0.70-1.20 [facility] Serum globulin measurementOr dered By: Chayo Black on 03-24-2025 Globulin (S) [Mass/Vol] 3.1 g/dL 2.2-4.2 [facility] Serum glucose measurement (m ass/volume)Ordered By: Chayo Black on 03-24-2025 Glucose [Mass/Vol] 96 mg/dL 70-99 [facility] Serum or plasma alanine durán otransferase (ALT) measurementOrdered By: Chayo Black on 03-24-2025 ALT [Catalytic activity/Vol] 62 U/L High <35 [facility] Serum or plasma albumin radha urement (mass/volume)Ordered By: Chayo Black on 03-24-2025 Albumin [Mass/Vol] 4.3 g/dL 3.5-5.0 [facility] Serum or plasma albumin/glob ulin mass ratioOrdered By: Chayo Black on 03-24-2025 Albumin/Globulin [Mass ratio] 1.4 {ratio} 0.9-2.4 [facility] Serum or plasma alkaline malaika sphatase measurementOrdered By: Chayo Black on 03-24-2025 ALP [Catalytic activity/Vol] 122 U/L High 35-104 [facility] Serum or plasma calcium radha urement (mass/volume)Ordered By: Chayo Black on 03-24-2025 Calcium [Mass/Vol] 9.8 mg/dL 7.6-11.0 [facility] Serum or plasma urea nitroge n measurement (mass/volume)Ordered By: Chayo Black on 03-24-2025 Urea nitrogen [Mass/Vol] 9 mg/dL 4-19 [facility] Sodium levelOrdered By: Chayo Black on 03-24-2025 Sodium [Moles/Vol] 141 mmol/L 133-145 [facility] T4 Free Directon 03-24-2025 T4 FREE DIRECT 1.20 ng/dL Normal 0.76-1.46 [facility] Comment on above: Performed By: #### L 100.0100, L506.0400, L501.9520 ####[facility] [address] [place], [address] Thyroid Stim Hormone (TSH)on 03-24-2025 TSH 1.210 uIU/mL Normal 0.300-4.200 [facility] Comment on above: Performed By: #### L 100.0100, L506.0400, L501.9520 ####[facility] [address] [place], [place], [address] Total proteinOrdered By: Sravan Black on 03-24-2025 Protein [Mass/Vol] 7.5 g/dL 5.9-8.4 [facility] White blood cell (WBC) count Ordered By: Chayo Black on 03-24-2025 WBC (Bld) [#/Vol] 6.2 10*3/uL 4.4-11.0 [facility] SURG PATH REQUESTon 03-19-20 25 Case Report Normal [facility] Comment on above: Result Comment: Surg ical Pathology Report Case: [id number] Authorizing Provider: Bryanna Martinez MD Collected: 03/19/2025 02:43 PM Ordering Location[facility] Received: 03/19/2025 02:42 PM [place] Pathologist: Melvin Andersen MD Specimen: SURG PATH, A) Lung biopsy, 20g x6 Performed By: #### S URGP #### [facility] (DEFAULT) [address] [address] Gross Description Normal [facility] Comment on above: Result Comment: The following material(s) are received from [facility], [address] [place] [address] with an identifying Surgical Pathology Report: 1 H&E and 8 non-H&E slides labeled [id number]. Outside materials are returned in 60 days under separate cover with our number recorded on them. Grosser for this case was: Ting Leos Performed By: #### S URGP #### [facility] (DEFAULT) [address] [address] Microscopic Description A microscopic examination was performed. [facility] Comment on above: Performed By: #### S URGP #### [facility] (DEFAULT) [address] [address] Pathologic Diagnosis [facility] Comment on above: Result Comment: Outs marina Slides [id number] (01/21/25) A. Lung, right, CT-guided core biopsy: Squamous cell carcinoma. Note: The neoplastic cells are positive for p40, CK5/6, and negative for CK7, CK20, TTF1, NapsinA (performed at the outside institution). at 1801 EDT Performed By: #### S URGP #### [facility] (DEFAULT) [address] [address] Professional Interpretation Performed at: [facility] Comment on above: Result Comment: [facility] For Immediate Release [facility] No [address] [place] [address] Performed By: #### S URGP #### [facility] (DEFAULT) [address] [address] Oncology Visit Reporton 02-14 Oncology Visit Report Normal [facility] CXR for Line Placementon CXR for Line Placement Normal [facility] Discharge Instructionon 02-14 Discharge Instruction Normal [facility] MR/POSTOP.ANEon 03-03-2025 MR/POSTOP.ANE Normal [facility] Operative Reporton Operative Report Normal [facility] Brain W/WO Contraston 2024 Brain W/WO Contrast Normal [facility] Magnetic resonance imaging r eportOrdered By: Chilango Cortes on 02-28-2025 Study report [facility] Imaging Services [address] [place] [address] Brain W/WO Contrast MR#: [id number] Acct: [id number] Name: ROSARIO KAISER Rep #: [id number] : 1975 F 49 From: Mike Cortes MD PCP: Dr. Joann Live MD Status: REG CLI Study:Brain W/WO Contrast Date of Exam: 02/28/25 Exam# [id number] Ordering Dr: Jesus Cabrera MD PROCEDURE: BRAIN W/WO CONTRAST 02/28/2025 REASON FOR EXAM: LUNG CANCER STAGING TECHNIQUE: BRAIN W/WO CONTRAST Multiplanar and multisequence images were obtained. CONTRAST: Clariscan VOLUME: 13 mL COMPARISON: None FINDINGS: There is no abnormal intracranial contrast enhancement. There are small lacunarinfarctions in both basal ganglia. There is a normal sulcal pattern and gyral configuration. There is no evidence of acute intracranial hemorrhage or infarction. The ritter-white differentiation is well preserved. There is no evidence of restricted diffusion. The ventricles and basilar cisterns are normal. There are normal flow voids demonstrated in the recognizedintracranial vessels. The cerebellum and brainstem are unremarkable. The cerebellar pontine angles arenormal. The craniovertebral junction is normal. The sella [...] infarctions in both basal ganglia. Reading Location: [place] [id number] CC: Dr. Joann Live MD; Dr. Ottoniel Cabrera MD ~ [employer] Supervisor: Signed [facility] Work Phone: SURG PATH REQUESTon 02-29-20 Case Report Normal [facility] Comment on above: Result Comment: Surg ical Pathology Report Case: [id number] Authorizing Provider: Mauri Tyler DO Collected: 02/28/2025 08:44 AM Ordering Location: [facility] Received: 02/28/2025 08:34 AM BELMAR Pathologist: Sam Lau MD Specimen: SURG PATH, [place] block [id number]; A) Lung, right CT-guided core biopsy; PD-L1 testing Performed By: #### S URGP #### [facility] (DEFAULT) [address] [place] [address] Clinical History Normal [facility] Comment on above: Result Comment: Rece ived is a request from Dr. Mauri Tyler at [facility] for PD-L1 IHC 22C3 (Keytruda) on [facility] block [id number]. Performed By: #### S URGP #### [facility] (DEFAULT) [address] [place] [address] Diagnosis Comments Normal [facility] Comment on above: Result Comment: PD-L 1 IHC 22C3 pharmDx Result, TPS: 90% Note: The results are reported as tumor proportion score (TPS). The PDL1 expression is evaluated for the membranous staining in tumor cells and is interpreted as positive if TPS >= 1% or negative if TPS < 1%. PD-L1 expression level TPS >= 50% may be of interest to treating physician but does not determine eligibility for KEYTRUDA? (pembrolizumab) monotherapy. The sample is adequate if >= 100 tumor cells are present. All controls show appropriate reactivity. All immunohistochemistry, in situ hybridization, and histochemical tests were developed by and are performed at the [facility], [address] [place] [address]. All tests reported here, except those addressing HER2 and PD-L1 expression as predictive markers, have not been cleared by or approved by the US Food and Drug Administration (FDA). The laboratory is regulated under CLIA as qualified to perform high-complexity testing. The tests are used for clinical purposes. They should not be regarded as investigational or for research. Performed By: #### S URGP #### [facility] (DEFAULT) [address] [address] Gross Description Normal [facility] Comment on above: Result Comment: The following material(s) are received from [facility], [address] [place] [address] with an identifying Surgical Pathology Report: 1 paraffin block (A1) labeled [id number], which is submitted to [facility] Histology/IHC Laboratory for re-cutting and additional staining for PD-L1 IHC 22C3 (KeytrOrangeSlyce). Outside materials are returned in 60 days under separate cover with our number recorded on them. Grosser for this case was: Ting Leos Performed By: #### S URGP #### [facility] (DEFAULT) [address] [address] Microscopic Description A microscopic examination was performed. [facility] Comment on above: Performed By: #### S URGP #### [facility] (DEFAULT) [address] [address] Pathologic Diagnosis [facility] Comment on above: Result Comment: Outs marina Block [id number] (01/21/25) A. Lung, right, CT-guided core biopsy: Poorly-differentiated squamous cell carcinoma at 1558 EDT Performed By: #### S URGP #### [facility] (DEFAULT) [address] [address] Professional Interpretation Performed at: [facility] Comment on above: Result Comment: [facility] For Immediate Release to [facility]? Yes [address] [address] Performed By: #### S URGP #### [facility] (DEFAULT) [address] [address] Surgery Visit Reporton 02-25 Surgery Visit Report Normal [facility] Radiation Oncology Visiton 0 02-21-2025 Radiation On[address] Visit Normal [facility] Oncology Visit Reporton 080 Oncology Visit Report Normal [facility] Positron emission tomography scan reportOrdered By: Wyatt Cobb on 02-12-2025 PT Unspecified body region [facility] Imaging Services [address] [place] [address] PET/CT Tumor Base -Thigh Init MR#: [id number] Acct: [id number] Name: ROSARIO KAISER Rep #: [id number] : 1975 F 49 From: Dimitrios Cobb MD PCP: Dr. Joann Live MD Status: REG CLI Study:PET/CT Tumor Base -Thigh Init Date of E xam: 02/11/25 Exam# [id number] Ordering Dr: Kiko Acevedo NP CAN CRIMPER-C PROCEDURE: PET/CT TUMOR BASE -THIGH INIT 02/11/2025 [...] are no significant pleural abnormalities. ABDOMEN: Cholelithiasis. Btbl-bk-htjklzux sigmoid and descending colon diverticulosis. Stomach- No [...] for the presence of malignancy. Other: Cholelithiasis. Lyvq-fs-xtdbzcla sigmoid and descending colon diverticulosis. Please note the low-dose CT scan was performed to facilitate PET image reconstruction and anatomic localization and does not replace a diagnostic CT. Any diagnostic CT requested and performed at the time of the PET will be reported separately. Reading Location: [facility] CC: VADIM Acevedo; Dr. Joann Live MD ~ [employer] Supervisor: Signed [facility] PET/CT Tumor Base -Thigh Ini ton 02-11-2025 PET/CT Tumor Base -Thigh Init Normal [facility] Pulmonary Visit Reporton Pulmonary Visit Report Normal [place] [facility] 6 Minute Walk Teston 025 6 Minute Walk Test Normal [facility] Biopsy/Inj or Needle Placeme nton 01-21-2025 Biopsy/Inj or Needle Placement Normal [facility] Chest Insp/Exp 2 Viewon Chest Insp/Exp 2 View Normal [facility] Chest Insp/Exp 2 View Normal [facility] Immunohistochemical Stainson 01-21-[address] [facility] Comment on above: Performed By: #### P IMHI ####[facility] [id number] [place], [address] Activated partial thrombopla stin time (aPTT) in platelet poor plasma by coagulation aOrdered By: Negin Acevedo on 01-08-2025 aPTT Coag (PPP) [Time] 25.1 s 24.1-36.2 [facility] International normalized rat io (INR) calculationOrdered By: Negin Acevedo on 01-08-2025 INR Coag (Bld) [Relative time] 0.9 {INR} [facility] Partial Thromboplast Timeon 01-08-2025 aPTT Coag (Bld) [Time] 25.1 s Normal 24.1-36.2 [facility] Comment on above: Performed By: #### L 300.3900, L100.1900, L300.4310 ####[facility] [id number] [place], [address] Platelet Counton 01-08-2025 Platelets (Bld) [#/Vol] 284 10*3/uL Normal 150-450 [facility] Comment on above: Performed By: #### L 300.3900, L100.1900, L300.4310 ####[facility] [address] [place], [address] Platelet countOrdered By: Jose Acevedo on 01-08-2025 Platelets (Bld) [#/Vol] 284 10*3/uL 150-450 [facility] Prothrombin Time w/INRon INR Coag (PPP) [Relative time] 0.9 {INR} Normal [facility] Comment on above: Performed By: #### L 300.3900, L100.1900, L300.4310 ####[facility] [address] [place], [address] PT Coag (PPP) [Time] 12.0 s Normal 11.7-14.9 [facility] Comment on above: Performed By: #### L 300.3900, L100.1900, L300.4310 ####[facility] [address] [place], [address] Prothrombin timeOrdered By: Negin Acevedo on 01-08-2025 PT Coag (PPP) [Time] 12.0 s 11.7-14.9 [facility] Pulmonary Visit Reporton Pulmonary Visit Report Normal [facility] Low Dose CT Lung Screeningon 01-07-[address] Lung Screening Normal [facility] Oncology Visit Reporton 12-16 Oncology Visit Report Normal [facility] Colonoscopy Reporton 025 Colonoscopy Report Normal [facility] MR/POSTOP.ANEon 10-22-2024 MR/POSTOP.ANE Normal [facility] MR/GCCVGTUN3mv 10-22-2024 MR/POSTOPAN2 Normal [facility] Breast imaging reportOrdered By: Valeria Mccord on 09-10-2024 Study report [facility] Imaging Services [address] [place] [address] SCRN MAMM (CAD)W/SANJUANA BILAT MR#: [id number] Acct: [id number] Name: ROSARIO KAISER Rep #: [id number] : 1975 F 48 From: Hodan Mccord MD PCP: Dr. Joann Live MD Status: REG CLI Study:SCRN MAMM (CAD)W/SANJUANA BILAT Date of Exa m: 09/10/24 Exam# [id number] Ordering Dr: Endy Live MD PROCEDURE: SCRN [...] of the results by letter. Reading Location: [facility] CC: Dr. Joann Live MD ~ [employer] Supervisor: Signed [facility] SCRN MAMM (CAD)W/SANJUANA BILATo n 09-10-2024 SCRN MAMM (CAD)W/SANJUANA BILAT Normal [facility] Absolute lymphocyte countOrd ered By: Joann Live on 08-08-2023 Lymphocytes Auto (Unsp spec) [#/Vol] 2.96 10*3/uL 0.83-4.51 [facility] Automated lymphocyte count a s percentage of total leukocytesOrdered By: Joann Live on 08-08-2023 Lymphocytes/100 WBC Auto (Unsp spec) 39.3 % 19-41 [facility] Basophil percentageOrdered B y: Joann Live on 08-08-2023 Basophils/100 WBC (Bld) 0.4 % 0-1 [facility] Bilirubin [Mass/Vol] 0.30 mg/dL 0.20-1.00 [facility] Comment on above: For patients on eltr ombopag therapy, use of Dimension [place] TBIL is not recommended. Chloride [Moles/Vol] 110 mmol/L 98-107 [facility] Eosinophils/100 WBC (Bld) 1.3 % 0-5 [facility] Glucose [Mass/Vol] 92 mg/dL 74-106 [facility] Hemoglobin (Bld) [Mass/Vol] 13.3 g/dL 12.0-15.0 [facility] Monocytes/100 WBC (Bld) 5.8 % 0-10 [facility] Neutrophils (Bld) [#/Vol] 4.0 10*3/uL 2.0-7.7 [facility] Neutrophils/100 WBC (Bld) 52.9 % 47-70 [facility] Potassium [Moles/Vol] 3.7 mmol/L 3.5-5.1 [facility] Protein [Mass/Vol] 7.7 g/dL 6.4-8.2 [facility] Sodium [Moles/Vol] 143 mmol/L 136-145 [facility] WBC (Bld) [#/Vol] 7.5 10*3/uL 4.4-11.0 [facility] Determination of erythrocyte mean corpuscular volume (MCV)Ordered By: Joann Live on 08-08-2023 MCV (RBC) [Entitic vol] 94.8 fL 81-99 [facility] Erythrocyte distribution wid th ratioOrdered By: Joann Mimarjan on 08-08-2023 Erythrocyte distribution width (RBC) [Ratio] 13.2 % 11.6-14.6 [facility] Erythrocyte distribution wid th standard deviationOrdered By: Joann Live on 08-08-2023 Erythrocyte distribution width (RBC) [Entitic vol] 45.8 fL 35.1-43.9 [facility] Hematocrit Auto (Bld) [Volum e fraction]Ordered By: Joann Live on 08-08-2023 Hematocrit (Bld) [Volume fraction] 41.7 % 37-47 [facility] Immature granulocytes/100 WB C Auto (Bld)Ordered By: Joann Live on 08-08-2023 Immature granulocytes/100 WBC (Bld) 0.300 % 0.0-0.9 [facility] Comment on above: IG% - Immature Granu locytes (promyelocytes, myelocytes and metamyelocytes) > 1% indicates that a LEFT SHIFT is Present. Laboratory - Chemistry and C hemistry - challengeOrdered By: Joann Live on 08-08-2023 Albumin/Globulin [Mass ratio] 1.3 {ratio} 0.9-2.4 [facility] ALP [Catalytic activity/Vol] 84 U/L 45-117 [facility] ALT [Catalytic activity/Vol] 31 U/L 13-56 [facility] CO2 [Moles/Vol] 29.0 mmol/L 21.0-32.0 [facility] Globulin (S) [Mass/Vol] 3.4 g/dL 2.2-4.2 [facility] Urea nitrogen/Creatinine [Mass ratio] 27.1 mg/mg 10-20 [facility] Laboratory - Hematology and Cell countsOrdered By: Joann Live on 08-08-2023 MCH (RBC) [Entitic mass] 30.2 pg 27.0-32.0 [facility] MCHC (RBC) [Mass/Vol] 31.9 g/dL 32-36 [facility] Nucleated RBC/100 WBC (Bld) [Ratio] 0 % 0-5 [facility] Platelets (Bld) [#/Vol] 267 10*3/uL 150-450 [facility] No Panel InformationOrdered By: Joann Live on 08-08-2023 Estimated GFR (MDRD) Amer 140 mL/min >60 [facility] Comment on above: GFR Calc Estimated GFR (MDRD) Non-Af Amer 115 mL/min >60 [facility] Comment on above: Non- GFR Calc Platelet mean volume Aneudy-Ec ker (Bld) [Entitic vol]Ordered By: Joann Live on 08-08-2023 Platelet mean volume (Bld) [Entitic vol] 10.6 fL 6.2-12.0 [facility] RBC Auto (Bld) [#/Vol]Ordere d By: Joann Live on 08-08-2023 RBC (Bld) [#/Vol] 4.40 10*6/uL 4.2-5.4 [facility] Serum or plasma calcium radha urement (mass/volume)Ordered By: Joann Live on 08-08-2023 Calcium [Mass/Vol] 9.4 mg/dL 8.5-10.1 [facility] With [facility] Serum or plasma creatinine m easurement (mass/volume)Ordered By: Joann Live on 08-08-2023 Creatinine [Mass/Vol] 0.59 mg/dL 0.55-1.02 [facility] Comment on above: The validity of the calculated GFR & GFRAA in patients over 70 years has not been determined. Clinical correlation is essential. Serum or plasma thyroid stim ulating hormone (TSH) measurement (units/volume)Ordered By: Joann Live on 08-08-2023 TSH Qn 1.15 uIU/mL 0.358-3.74 [facility] Serum or plasma urea nitroge n measurement (mass/volume)Ordered By: Joann Live on 08-08-2023 Urea nitrogen [Mass/Vol] 16 mg/dL 7-18 [facility] Thin prep Papanicolaou smear with manual screeningOrdered By: Joann Maria T on 08-08-2023 Thin prep Papanicolaou smear with manual screening 4.3 g/dL 3.2-5.0 [facility] Thin prep Papanicolaou smear with manual screening 17 U/L 15-37 [facility] Thin prep Papanicolaou smear with manual screening 4 5-15 [facility] HERMILA DIAG W SANJUANA BILATERALon 12-06-2022 [facility] No Panel Informationon 12-06 [facility] HERMILA SCREENINGon 10-25-2022 [facility] XR Lumbar spine 3 Viewson IMPRESSION: Lumbar s pine degenerative changes with L5-S1 disc space narrowing. [employer] [facility] Trans[facility] Date/Time: Oct 20 2022 2:11P Dictated by : JEANA YU MD This examination was interpreted and the report reviewed and electronically signed by: JEANA YU MD on Oct 20 2022 2:15PM [facility] DIVISION OF RADIOLOGY * * *Final [...] spine are presented. FINDINGS: There are five dfc-iio-liufham lumbar vertebrae. No fracture or subluxations are noted. L5-S1 disc space narrowing is demonstrated, with endplate sclerosis. There is mild osteophyte formation. DIVISION OF RADIOLOGY Provider, Augusto fisher [place] - 10/20/2022 * * *Final Report* * [...] spine are presented. FINDINGS: There are five xhu-fhw-wgvlslw lumbar vertebrae. No fracture or subluxations are noted. L5-S1 disc space narrowing is demonstrated, with endplate sclerosis. There is mild osteophyte formation. IMPRESSION IMPRESSION: Lumbar spine degenerative changes with L5-S1 disc space narrowing. [employer] Supervisor: [facility] Transcribe Date/Time: Oct 20 2022 2:11P Dictated by : JEANA YU MD This examination was interpreted and the report reviewed and electronically signed by: JEANA YU MD on Oct 20 2022 2:15PM EST [facility] XR Lumbar spine 3 ViewsOrder ed By: [facility] Provider on 10-20-2022 [facility] XR Lumbar spine 3 Viewson Radiology Study observation (narrative) [facility] PROGRESSon 02-10-2020 PROGRESS HNO ID: [id number] Author: Sherry Singleton Service: ? Author Type: Nurse Practitioner Type: [...] Total Time Spent: 7 min Sherry Singleton APRN.CUSHION COVER INSPECTOR Normal [facility] Office Visit: [facility]:on 017 Documentation of current medications (procedure) Done Invalid Interpretation Code [facility] Work Phone: Fall risk assessment No Invalid Interpretation Code [facility] Work Phone: Vital Signs Date Time Vital Sign Value Performing Clinician Facility 05-21-2025 13:00-0500 Body mass index (BMI) [Ratio] 24.93 kg/m2 Bryanna Martinez MD Work Phone: [facility] 05-21-2025 13:00-0500 Body temperature 97.59 [degF] Bryanna Martinez MD Work Phone: [facility] 05-21-2025 13:00-0500 Body weight 71.03 kg Bryanna Martinez MD Work Phone: [facility] Comment on above: with shoes on 05-21-2025 13:00-0500 Diastolic blood pressure 75 mm[Hg] Bryanna Martinez MD Work Phone: [facility] 05-21-2025 13:00-0500 Heart rate 87 /min Bryanna Martinez MD Work Phone: [facility] 05-21-2025 13:00-0500 Respiratory rate 18 /min Bryanna Martinez MD Work Phone: [facility] 05-21-2025 13:00-0500 SaO2% (BldA) [Mass fraction] 99 % Bryanna Martinez MD Work Phone: [facility] 05-21-2025 13:00-0500 Systolic blood pressure 127 mm[Hg] Bryanna Martinez MD Work Phone: [facility] 05-12-2025 16:20-0400 Body temperature 96.7 [degF] Dr. Joann Live MD Work Phone: [facility] 05-12-2025 16:20-0400 Diastolic blood pressure 81 mm[Hg] Dr. Joann Live MD Work Phone: [facility] 05-12-2025 16:20-0400 Heart rate 84 /min Dr. Joann Live MD Work Phone: [facility] 05-12-2025 16:20-0400 Respiratory rate 16 /min Dr. Joann Live MD Work Phone: [facility] 05-12-2025 16:20-0400 SaO2% (BldA) [Mass fraction] 99 % Dr. Joann Live MD Work Phone: [facility] 05-12-2025 16:20-0400 Systolic blood pressure 117 mm[Hg] Dr. Joann Live MD Work Phone: [facility] 05-12-2025 11:20-0400 Body height 167.[address] Joann Live MD Work Phone: [facility] 05-12-2025 11:20-0400 Body weight 70.[address] Joann Live MD Work Phone: [facility] 05-12-2025 08:23-0400 Body mass index (BMI) [Ratio] 25.1 kg/m2 Dr. Joann Lvie MD Work Phone: [facility] 05-12-2025 08:23-0400 Body temperature 97.8 [degF] Dr. Joann Live MD Work Phone: [facility] 05-12-2025 08:23-0400 Body weight 70.[address] Joann Live MD Work Phone: [facility] 05-12-2025 08:23-0400 Diastolic blood pressure 79 mm[Hg] Dr. Joann Live MD Work Phone: [facility] 05-12-2025 08:23-0400 Heart rate 93 /min Dr. Joann Live MD Work Phone: [facility] 05-12-2025 08:23-0400 Respiratory rate 16 /min Dr. Joann Live MD Work Phone: [facility] 05-12-2025 08:23-0400 SaO2% (BldA) [Mass fraction] 98 % Dr. Joann Live MD Work Phone: [facility] 05-12-2025 08:23-0400 Systolic blood pressure 113 mm[Hg] Dr. Joann Live MD Work Phone: [facility] 05-01-2025 10:35-0400 Body mass index (BMI) [Ratio] 25 kg/m2 Dr. Joann Live MD Work Phone: [facility] 05-01-2025 10:35-0400 Body temperature 97.5 [degF] Dr. Joann Live MD Work Phone: [facility] 05-01-2025 10:35-0400 Body weight 70.[address] Joann Live MD Work Phone: [facility] 05-01-2025 10:35-0400 Diastolic blood pressure 86 mm[Hg] Dr. Joann Live MD Work Phone: [facility] 05-01-2025 10:35-0400 Heart rate 68 /min Dr. Joann Live MD Work Phone: [facility] 05-01-2025 10:35-0400 Respiratory rate 18 /min Dr. Joann Live MD Work Phone: [facility] 05-01-2025 10:35-0400 SaO2% (BldA) [Mass fraction] 98 % Dr. Joann Live MD Work Phone: [facility] 05-01-2025 10:35-0400 Systolic blood pressure 132 mm[Hg] Dr. Joann Live MD Work Phone: [facility] 04-21-2025 10:37-0400 Body height 167.[address] Joann Live MD Work Phone: [facility] 04-21-2025 10:37-0400 Body weight 69.[address] Joann Live MD Work Phone: [facility] 04-21-2025 08:51-0400 Body mass index (BMI) [Ratio] 24.7 kg/m2 Dr. Joann Live MD Work Phone: [facility] 04-21-2025 08:51-0400 Body temperature 97.9 [degF] Dr. Joann Live MD Work Phone: [facility] 04-21-2025 08:51-0400 Body weight 69.[address] Joann Live MD Work Phone: [facility] 04-21-2025 08:51-0400 Diastolic blood pressure 81 mm[Hg] Dr. Joann Live MD Work Phone: [facility] 04-21-2025 08:51-0400 Heart rate 67 /min Dr. Joann Live MD Work Phone: [facility] 04-21-2025 08:51-0400 Respiratory rate 18 /min Dr. Joann Live MD Work Phone: [facility] 04-21-2025 08:51-0400 SaO2% (BldA) [Mass fraction] 98 % Dr. Joann Live MD Work Phone: [facility] 04-21-2025 08:51-0400 Systolic blood pressure 127 mm[Hg] Dr. Joann Live MD Work Phone: [facility] 04-14-2025 16:23-0400 Body height 167.[address] Joann Live MD Work Phone: [facility] 04-14-2025 16:23-0400 Body weight 70.[address] Joann Live MD Work Phone: [facility] 04-14-2025 09:47-0400 Body mass index (BMI) [Ratio] 25 kg/m2 Dr. Joann Live MD Work Phone: [facility] 04-14-2025 09:47-0400 Body temperature 97.8 [degF] Dr. Joann Live MD Work Phone: [facility] 04-14-2025 09:47-0400 Body weight 70.[address] Joann Live MD Work Phone: [facility] 04-14-2025 09:47-0400 Diastolic blood pressure 79 mm[Hg] Dr. Joann Live MD Work Phone: [facility] 04-14-2025 09:47-0400 Heart rate 60 /min Dr. Joann Live MD Work Phone: [facility] 04-14-2025 09:47-0400 Respiratory rate 18 /min Dr. Joann Live MD Work Phone: [facility] 04-14-2025 09:47-0400 SaO2% (BldA) [Mass fraction] 100 % Dr. Joann Live MD Work Phone: [facility] 04-14-2025 09:47-0400 Systolic blood pressure 118 mm[Hg] Dr. Joann Live MD Work Phone: [facility] 04-07-2025 09:43-0400 Body mass index (BMI) [Ratio] 24.7 kg/m2 Dr. Joann Live MD Work Phone: [facility] 04-07-2025 09:43-0400 Body temperature 97.5 [degF] Dr. Joann Live MD Work Phone: [facility] 04-07-2025 09:43-0400 Body weight 69.[address] Joann Live MD Work Phone: [facility] 04-07-2025 09:43-0400 Diastolic blood pressure 84 mm[Hg] Dr. Joann Live MD Work Phone: [facility] 04-07-2025 09:43-0400 Heart rate 72 /min Dr. Joann Live MD Work Phone: [facility] 04-07-2025 09:43-0400 Respiratory rate 18 /min Dr. Joann Live MD Work Phone: [facility] 04-07-2025 09:43-0400 SaO2% (BldA) [Mass fraction] 97 % Dr. Joann Live MD Work Phone: [facility] 04-07-2025 09:43-0400 Systolic blood pressure 124 mm[Hg] Dr. Joann Live MD Work Phone: [facility] 04-01-2025 09:01-0400 Body height 167.[address] Joann Live MD Work Phone: [facility] 04-01-2025 09:01-0400 Body mass index (BMI) [Ratio] 24.3 kg/m2 Dr. Joann Live MD Work Phone: [facility] 04-01-2025 09:01-0400 Body temperature 98.2 [degF] Dr. Joann Live MD Work Phone: [facility] 04-01-2025 09:01-0400 Body weight 68.[address] Joann Live MD Work Phone: [facility] 04-01-2025 09:01-0400 Diastolic blood pressure 89 mm[Hg] Dr. Joann Live MD Work Phone: [facility] 04-01-2025 09:01-0400 Heart rate 67 /min Dr. Joann Live MD Work Phone: [facility] 04-01-2025 09:01-0400 Respiratory rate 16 /min Dr. Joann Live MD Work Phone: [facility] 04-01-2025 09:01-0400 SaO2% (BldA) [Mass fraction] 98 % Dr. Joann Live MD Work Phone: [facility] 04-01-2025 09:01-0400 Systolic blood pressure 152 mm[Hg] Dr. Joann Live MD Work Phone: [facility] 03-24-2025 12:56-0400 Body temperature 97.2 [degF] Dr. Joann Live MD Work Phone: [facility] 03-24-2025 12:56-0400 Diastolic blood pressure 59 mm[Hg] Dr. Joann Live MD Work Phone: [facility] 03-24-2025 12:56-0400 Heart rate 71 /min Dr. Joann Live MD Work Phone: [facility] 03-24-2025 12:56-0400 Respiratory rate 16 /min Dr. Joann Live MD Work Phone: [facility] 03-24-2025 12:56-0400 Systolic blood pressure 101 mm[Hg] Dr. Joann Live MD Work Phone: [facility] 03-24-2025 08:27-0400 Body height 167.[address] Joann Live MD Work Phone: [facility] 03-24-2025 08:27-0400 Body mass index (BMI) [Ratio] 24.7 kg/m2 Dr. Joann Live MD Work Phone: [facility] 03-24-2025 08:27-0400 Body temperature 97.8 [degF] Dr. Joann Live MD Work Phone: [facility] 03-24-2025 08:27-0400 Body weight [address] Joann Live MD Work Phone: [facility] 03-24-2025 08:27-0400 Diastolic blood pressure 76 mm[Hg] Dr. Joann Live MD Work Phone: [facility] 03-24-2025 08:27-0400 Heart rate 84 /min Dr. Joann Live MD Work Phone: [facility] 03-24-2025 08:27-0400 Respiratory rate 18 /min Dr. Joann Live MD Work Phone: [facility] 03-24-2025 08:27-0400 SaO2% (BldA) [Mass fraction] 99 % Dr. Joann Live MD Work Phone: [facility] 03-24-2025 08:27-0400 Systolic blood pressure 112 mm[Hg] Dr. Joann Live MD Work Phone: [facility] 03-12-2025 10:46-0400 Body height 168.8 cm Bryanna Martinez MD Work Phone: [facility] Comment on above: 03/1203-12-2025 10:46-0400 Body mass index (BMI) [Ratio] 24.67 kg/m2 Bryanna Martinez MD Work Phone: [facility] 03-12-2025 10:46-0400 Body temperature 98.4 [degF] Bryanna Martinez MD Work Phone: [facility] 03-12-2025 10:46-0400 Body weight 70.31 kg Bryanna Martinez MD Work Phone: [facility] Comment on above: with shoes on 03-12-2025 10:46-0400 Diastolic blood pressure 67 mm[Hg] Bryanna Martinez MD Work Phone: [facility] 03-12-2025 10:46-0400 Heart rate 76 /min Bryanna Martinez MD Work Phone: [facility] 03-12-2025 10:46-0400 Respiratory rate 16 /min Bryanna Martinez MD Work Phone: [facility] 03-12-2025 10:46-0400 SaO2% (BldA) [Mass fraction] 97 % Bryanna Martinez MD Work Phone: [facility] 03-12-2025 10:46-0400 Systolic blood pressure 119 mm[Hg] Bryanna Martinez MD Work Phone: [facility] 03-04-2025 14:47-0400 Body height 167.[address] Joann Live MD Work Phone: [facility] 03-04-2025 14:47-0400 Body mass index (BMI) [Ratio] 24.4 kg/m2 Dr. Joann Live MD Work Phone: [facility] 03-04-2025 14:47-0400 Body temperature 98.2 [degF] Dr. Joann Live MD Work Phone: [facility] 03-04-2025 14:47-0400 Body weight 68.[address] Joann Live MD Work Phone: [facility] 03-04-2025 14:47-0400 Diastolic blood pressure 83 mm[Hg] Dr. Joann Live MD Work Phone: [facility] 03-04-2025 14:47-0400 Heart rate 82 /min Dr. Joann Live MD Work Phone: [facility] 03-04-2025 14:47-0400 Respiratory rate 18 /min Dr. Joann Live MD Work Phone: [facility] 03-04-2025 14:47-0400 SaO2% (BldA) [Mass fraction] 96 % Dr. Joann Live MD Work Phone: [facility] 03-04-2025 14:47-0400 Systolic blood pressure 113 mm[Hg] Dr. Joann Live MD Work Phone: [facility] 03-03-2025 12:50-0400 Body temperature 97.1 [degF] Dr. Joann Live MD Work Phone: [facility] 03-03-2025 12:50-0400 Diastolic blood pressure 74 mm[Hg] Dr. Joann Live MD Work Phone: [facility] 03-03-2025 12:50-0400 Heart rate 65 /min Dr. Joann Live MD Work Phone: [facility] 03-03-2025 12:50-0400 Respiratory rate 16 /min Dr. Joann Live MD Work Phone: [facility] 03-03-2025 12:50-0400 SaO2% (BldA) [Mass fraction] 100 % Dr. Joann Live MD Work Phone: [facility] 03-03-2025 12:50-0400 Systolic blood pressure 112 mm[Hg] Dr. Joann Live MD Work Phone: [facility] 03-03-2025 11:15-0400 Body height 167.[address] Joann Live MD Work Phone: [facility] 03-03-2025 11:15-0400 Body mass index (BMI) [Ratio] 24.3 kg/m2 Dr. Joann Live MD Work Phone: [facility] 03-03-2025 11:15-0400 Body weight 68.[address] Joann Live MD Work Phone: [facility] 02-25-2025 09:15-0400 Body height 167.[address] Joann Live MD Work Phone: [facility] 02-25-2025 09:15-0400 Body mass index (BMI) [Ratio] 24.5 kg/m2 Dr. Joann Live MD Work Phone: [facility] 02-25-2025 09:15-0400 Body temperature 97.2 [degF] Dr. Joann Live MD Work Phone: [facility] 02-25-2025 09:15-0400 Body weight [address] Joann Live MD Work Phone: [facility] 02-25-2025 09:15-0400 Diastolic blood pressure 73 mm[Hg] Dr. Joann Live MD Work Phone: [facility] 02-25-2025 09:15-0400 Heart rate 63 /min Dr. Joann Live MD Work Phone: [facility] 02-25-2025 09:15-0400 Respiratory rate 18 /min Dr. Joann Live MD Work Phone: [facility] 02-25-2025 09:15-0400 SaO2% (BldA) [Mass fraction] 97 % Dr. Joann Live MD Work Phone: [facility] 02-25-2025 09:15-0400 Systolic blood pressure 125 mm[Hg] Dr. Joann Live MD Work Phone: [facility] 02-21-2025 09:11-0400 Body height 167.[address] Joann Live MD Work Phone: [facility] 02-21-2025 09:11-0400 Body mass index (BMI) [Ratio] 24.7 kg/m2 Dr. Joann Live MD Work Phone: [facility] 02-21-2025 09:11-0400 Body temperature 98 [degF] Dr. Joann Live MD Work Phone: [facility] 02-21-2025 09:11-0400 Body weight 69.[address] Joann Live MD Work Phone: [facility] 02-21-2025 09:11-0400 Diastolic blood pressure 86 mm[Hg] Dr. Joann Live MD Work Phone: [facility] 02-21-2025 09:11-0400 Heart rate 69 /min Dr. Joann Live MD Work Phone: [facility] 02-21-2025 09:11-0400 Respiratory rate 18 /min Dr. Joann Live MD Work Phone: [facility] 02-21-2025 09:11-0400 SaO2% (BldA) [Mass fraction] 97 % Dr. Joann Live MD Work Phone: [facility] 02-21-2025 09:11-0400 Systolic blood pressure 124 mm[Hg] Dr. Joann Live MD Work Phone: [facility] 02-17-2025 09:43-0400 Body height 167.[address] Joann Live MD Work Phone: [facility] 02-17-2025 09:43-0400 Body mass index (BMI) [Ratio] 24.7 kg/m2 Dr. Joann Live MD Work Phone: [facility] 02-17-2025 09:43-0400 Body weight 69.[address] Joann Live MD Work Phone: [facility] 02-17-2025 09:41-0400 Body temperature 98 [degF] Dr. Joann Live MD Work Phone: [facility] 02-17-2025 09:41-0400 Diastolic blood pressure 82 mm[Hg] Dr. Joann Live MD Work Phone: [facility] 02-17-2025 09:41-0400 Heart rate 80 /min Dr. Joann Live MD Work Phone: [facility] 02-17-2025 09:41-0400 Respiratory rate 18 /min Dr. Joann Live MD Work Phone: [facility] 02-17-2025 09:41-0400 SaO2% (BldA) [Mass fraction] 98 % Dr. Joann Live MD Work Phone: [facility] 02-17-2025 09:41-0400 Systolic blood pressure 122 mm[Hg] Dr. Joann Live MD Work Phone: [facility] 01-30-2025 08:47-0400 Body height 167.[address] Joann Live MD Work Phone: [facility] 01-30-2025 08:47-0400 Body mass index (BMI) [Ratio] 24.2 kg/m2 Dr. Joann Live MD Work Phone: [facility] 01-30-2025 08:47-0400 Body temperature 97.3 [degF] Dr. Joann Live MD Work Phone: [facility] 01-30-2025 08:47-0400 Body weight 68.[address] Joann Live MD Work Phone: [facility] 01-30-2025 08:47-0400 Diastolic blood pressure 86 mm[Hg] Dr. Joann Live MD Work Phone: [facility] 01-30-2025 08:47-0400 Heart rate 87 /min Dr. Joann Live MD Work Phone: [facility] 01-30-2025 08:47-0400 Respiratory rate 16 /min Dr. Joann Live MD Work Phone: [facility] 01-30-2025 08:47-0400 SaO2% (BldA) [Mass fraction] 97 % Dr. Joann Live MD Work Phone: [facility] 01-30-2025 08:47-0400 Systolic blood pressure 123 mm[Hg] Dr. Joann Live MD Work Phone: [facility] 01-23-2025 08:05-0400 Body height 167.[address] Joann Live MD Work Phone: [facility] 01-23-2025 08:05-0400 Body weight 68.[address] Joann Live MD Work Phone: [facility] 01-23-2025 08:05-0400 Heart rate 94 /min Dr. Joann Live MD Work Phone: [facility] 01-23-2025 08:05-0400 SaO2% (BldA) [Mass fraction] 96 % Dr. Joann Live MD Work Phone: [facility] 01-21-2025 11:35-0400 Diastolic blood pressure 74 mm[Hg] Dr. Joann Live MD Work Phone: [facility] 01-21-2025 11:35-0400 Heart rate 74 /min Dr. Joann Live MD Work Phone: [facility] 01-21-2025 11:35-0400 Respiratory rate 18 /min Dr. Joann Live MD Work Phone: [facility] 01-21-2025 11:35-0400 SaO2% (BldA) [Mass fraction] 98 % Dr. Joann Live MD Work Phone: [facility] 01-21-2025 11:35-0400 Systolic blood pressure 119 mm[Hg] Dr. Joann Live MD Work Phone: [facility] 01-21-2025 08:10-0400 Body mass index (BMI) [Ratio] 24.5 kg/m2 Dr. Joann Live MD Work Phone: [facility] 01-21-2025 08:10-0400 Body temperature 98.7 [degF] Dr. Joann Live MD Work Phone: [facility] 01-21-2025 08:10-0400 Body weight 68.[address] Joann Live MD Work Phone: [facility] 01-08-2025 08:00-0400 Body height 167.[address] Joann Live MD Work Phone: [facility] 01-08-2025 08:00-0400 Body mass index (BMI) [Ratio] 24.5 kg/m2 Dr. Joann Live MD Work Phone: [facility] 01-08-2025 08:00-0400 Body temperature 97.4 [degF] Dr. Joann Live MD Work Phone: [facility] 01-08-2025 08:00-0400 Body weight 68.[address] Joann Live MD Work Phone: [facility] 01-08-2025 08:00-0400 Diastolic blood pressure 85 mm[Hg] Dr. Joann Live MD Work Phone: [facility] 01-08-2025 08:00-0400 Heart rate 68 /min Dr. Joann Live MD Work Phone: [facility] 01-08-2025 08:00-0400 Respiratory rate 18 /min Dr. Joann Live MD Work Phone: [facility] 01-08-2025 08:00-0400 SaO2% (BldA) [Mass fraction] 96 % Dr. Joann Live MD Work Phone: [facility] 01-08-2025 08:00-0400 Systolic blood pressure 127 mm[Hg] Dr. Joann Live MD Work Phone: [facility] 01-07-2025 12:40-0400 Body height 167.[address] Joann Live MD Work Phone: [facility] 01-07-2025 12:40-0400 Body mass index (BMI) [Ratio] 24.5 kg/m2 Dr. Joann Live MD Work Phone: [facility] 01-07-2025 12:40-0400 Body temperature 98.6 [degF] Dr. Joann Live MD Work Phone: [facility] 01-07-2025 12:40-0400 Body weight 68.[address] Joann Live MD Work Phone: [facility] 01-07-2025 12:40-0400 Diastolic blood pressure 76 mm[Hg] Dr. Joann Live MD Work Phone: [facility] 01-07-2025 12:40-0400 Heart rate 86 /min Dr. Joann Live MD Work Phone: [facility] 01-07-2025 12:40-0400 Respiratory rate 18 /min Dr. Joann Live MD Work Phone: [facility] 01-07-2025 12:40-0400 SaO2% (BldA) [Mass fraction] 96 % Dr. Joann Live MD Work Phone: [facility] 01-07-2025 12:40-0400 Systolic blood pressure 112 mm[Hg] Dr. Joann Live MD Work Phone: [facility] 10-22-2024 09:35-0400 Diastolic blood pressure 69 mm[Hg] Dr. Joann Live MD Work Phone: [facility] 10-22-2024 09:35-0400 Systolic blood pressure 98 mm[Hg] Dr. Joann Live MD Work Phone: [facility] 10-22-2024 09:30-0400 Body temperature 96.9 [degF] Dr. Joann Live MD Work Phone: [facility] 10-22-2024 09:30-0400 Heart rate 74 /min Dr. Joann Live MD Work Phone: [facility] 10-22-2024 09:30-0400 Respiratory rate 16 /min Dr. Joann Live MD Work Phone: [facility] 10-22-2024 09:30-0400 SaO2% (BldA) [Mass fraction] 96 % Dr. Joann Live MD Work Phone: [facility] 10-22-2024 07:31-0400 Body height 167.[address] Joann Live MD Work Phone: [facility] 10-22-2024 07:31-0400 Body mass index (BMI) [Ratio] 23.8 kg/m2 Dr. Joann Live MD Work Phone: [facility] 10-22-2024 07:31-0400 Body weight [address] Joann Live MD Work Phone: [facility] 08-15-2024 11:47-0500 Body height 167.[address] Joann Live MD Work Phone: [facility] 08-15-2024 11:47-0500 Body mass index (BMI) [Ratio] 24.2 kg/m2 Dr. Joann Live MD Work Phone: [facility] 08-15-2024 11:47-0500 Body weight 68.[address] Joann Live MD Work Phone: [facility] 07-08-2023 09:15-0500 Diastolic blood pressure 79 mm[Hg] [facility] 07-08-2023 09:15-0500 Heart rate 92 /min [facility] 07-08-2023 09:15-0500 Respiratory rate 16 /min [facility] 07-08-2023 09:15-0500 SaO2% (BldA) [Mass fraction] 100 % [facility] 07-08-2023 09:15-0500 Systolic blood pressure 108 mm[Hg] [facility] 07-08-2023 07:40-0500 Body height 167.64 cm [facility] 07-08-2023 07:40-0500 Body mass index (BMI) [Ratio] 23.3 kg/m2 [facility] 07-08-2023 07:40-0500 Body temperature 97.3 [degF] [facility] 07-08-2023 07:40-0500 Body weight 65.45 kg [facility] 11-15-2022 09:06-0400 Body weight 67.13 kg Kandice Older [employer] Work Phone: [facility] 11-15-2022 09:06-0400 Diastolic blood pressure 76 mm[Hg] Kandice Older [employer]PECTOR Work Phone: [facility] 11-15-2022 09:06-0400 Heart rate 86 /min Kandice Older [employer] INSPECTOR Work Phone: [facility] 11-15-2022 09:06-0400 Respiratory rate 14 /min Kandice Older [employer] INSPECTOR Work Phone: [facility] 11-15-2022 09:06-0400 Systolic blood pressure 112 mm[Hg] Kandice Older [employer] INSPECTOR Work Phone: [facility] 10-18-2022 07:19-0400 Body temperature 97.5 [degF] Krislyn Aberegg PA Work Phone: [facility] 10-18-2022 07:19-0400 Body weight 68.13 kg Krislyn Aberegg PA Work Phone: [facility] 10-18-2022 07:19-0400 Diastolic blood pressure 78 mm[Hg] Krislyn Aberegg PA Work Phone: [facility] 10-18-2022 07:19-0400 Heart rate 83 /min Krislyn Aberegg PA Work Phone: [facility] 10-18-2022 07:19-0400 Respiratory rate 16 /min Krislyn Aberegg PA Work Phone: [facility] 10-18-2022 07:19-0400 SaO2% (BldA) [Mass fraction] 99 % Krislyn Aberegg PA Work Phone: [facility] 10-18-2022 07:19-0400 Systolic blood pressure 122 mm[Hg] Krislyn Aberegg PA Work Phone: [facility] 01-20-2017 09:01-0400 BMI (Body Mass Index) 23.5 kg/m2 Virginie Arriaga LPN [facility] Work Phone: 01-20-2017 09:01-0400 Body Temperature 98.6 [degF] Virginie Arriaga LPN [facility] Work Phone: 01-20-2017 09:01-0400 BP Diastolic 80 mm[Hg] Virginie Arriaga LPN [facility] Work Phone: 01-20-2017 09:01-0400 BP Systolic 140 mm[Hg] Virginie Arriaga LPN [facility] Work Phone: 01-20-2017 09:01-0400 Height 167.64 cm Virginie Arriaga [facility] Work Phone: 01-20-2017 09:01-0400 Pulse (Heart Rate) 83 /min Virginie Arriaga [facility] Work Phone: 01-20-2017 09:01-0400 Respiratory Rate 16 /min Virginie Arriaga [facility] Work Phone: 01-20-2017 09:01-0400 Weight 66.04 kg Virginie Arriaga LPN [facility] Work Phone: Encounters Encounter Date Encounter Type Care Provider Facility Start: 06-10-2025 ambulatory [facility] Facility: [facility] Start: 05-25-2025 ambulatory [facility] Facility: [facility] Start: 05-24-2025 End: 05-24-2025 ambulatory [facility] Facility:[facility] Start: 05-21-2025 End: 05-22-2025 Office outpatient visit 25 minutes Bryanna Martinez MD Work Phone: Division of Thoracic Surgery at [facility] [employer] Comment on above: Squamous cell lung c ancer, right (Primary Dx); Preoperative evaluation to rule out surgical contraindication; Shortness of breath Start: 05-21-2025 End: 05-22-2025 Patient encounter status Bryanna Martinez MD Work Phone: [facility] Start: 05-21-2025 ambulatory SELF SELF Facility:[facility] Start: 05-12-2025 End: 05-12-2025 ambulatory [facility] Facility:[facility] Start: 05-01-2025 End: 05-01-2025 Patient encounter procedure Chayo FIERRO -[facility] Work Phone: Start: 05-01-2025 End: 05-01-[address] Joann Live MD Work Phone: -[facility] Start: 04-22-2025 End: 04-22-2025 Patient encounter procedure Chayo Wayne CAN CRIMPER-C -Ultrasound [facility] Work Phone: Start: 04-21-[address] Mauri Griffith on [facility] Start: 04-21-2025 End: 04-21-2025 Patient encounter procedure Chayo Wayne CAN CRIMPER-C -[facility] Work Phone: Start: 04-21-2025 End: 04-22-[address] Joann Live MD Work Phone: -[facility] Start: 04-14-[address] Mauri Griffith on [facility] Start: 04-14-2025 End: 04-14-[address] Ottoniel Cabrera MD -[facility] Work Phone: Start: 04-14-2025 End: 04-14-[address] Joann Live MD Work Phone: [facility] Start: 04-07-2025 End: 04-07-2025 Patient encounter procedure Chayo Wayne CAN CRIMPER-C -[facility] Work Phone: Start: 04-07-2025 End: 04-07-[address] Joann Live MD Work Phone: [facility] Start: 04-01-2025 End: 04-01-[address] Joann Live MD Work Phone: -Cardiovascular Services Start: 04-01-2025 End: 04-01-2025 Patient encounter procedure Chayo Wayne CAN CRIMPER-C -[facility] Services Work Phone: Start: 04-01-2025 End: 04-01-2025 Patient encounter procedure Chayo Wayne CAN CRIMPER-C -[facility] Work Phone: Start: 04-01-2025 End: 04-01-[address] Joann Live MD Work Phone: -[facility] Start: 04-01-2025 End: 04-01-2025 ambulatory Chayo Black CAN CRIMPER Facility:[facility] Start: 03-24-2025 End: 03-24-[address] Ottoniel Cabrera MD -[facility] Work Phone: Start: 03-24-2025 End: 03-24-[address] Joann Live MD Work Phone: -[facility] Start: 03-24-[address] Mauri Griffith on [facility] Start: 03-12-2025 End: 03-12-2025 Office outpatient new 45 minutes Bryanna Martinez MD Work Phone: Division of Thoracic Surgery at [facility] [employer] Comment on above: History of lung canc er (Primary Dx) Start: 03-12-2025 [facility] Start: 03-04-2025 End: 03-04-2025 Patient encounter procedure Chayo Black CAN CRIMPER- -[facility] Work Phone: Start: 03-04-2025 End: 03-04-[address] Joann Live MD Work Phone: [facility] Start: 03-03-2025 ambulatory Allan Andersen lity:JOSÉ LUIS Start: 03-03-2025 Non-patient / Non-visit Dr. Suad Fam MD -[facility] Start: 03-03-2025 End: 03-03-2025 Admission to same day surgery center Dr. Allan Fam MD -[facility] Start: 03-03-2025 End: 03-03-[address] Joann Live MD Work Phone: -[facility] Start: 02-28-2025 End: 02-28-[address] Joann Live MD Work Phone: -[facility] Start: 02-28-2025 End: 02-28-[address] Ottoniel Cabrera MD -[facility] Work Phone: Start: 02-28-2025 End: 02-28-2025 ambulatory Ottoniel Cabrera Facility:[facility] Start: 02-25-2025 End: 02-25-[address] Allan Fam MD -[facility] Work Phone: Start: 02-25-2025 End: 02-25-[address] Joann Live MD Work Phone: -[facility] Start: 02-21-2025 End: 02-21-[address] Mauri Tyler DO -[facility] Work Phone: Start: 02-21-2025 End: 02-21-[address] Joann Live MD Work Phone: [facility] Start: 02-17-2025 End: 02-17-[address] Ottoniel Cabrera MD -[facility] Work Phone: Start: 02-17-2025 End: 02-17-[address] Joann Live MD Work Phone: [facility] Start: 02-11-2025 End: 02-11-[address] Joann Live MD Work Phone: [facility] Start: 02-11-2025 End: 02-11-2025 Patient encounter procedure Negin Acevedo NP- -[facility] Start: 02-11-2025 End: 02-11-2025 ambulatory Negin Acevedo NP Facility:[facility] Start: 01-30-2025 End: 01-30-2025 Patient encounter procedure Negin Acevedo NP-C -[facility] Work Phone: Start: 01-30-2025 End: 01-30-[address] Joann Live MD Work Phone: [facility][1] Pulmonary Medicine Start: 01-24-2025 ambulatory Negin Acevedo NP Fac ility:[facility] Start: 01-24-2025 Non-patient / Non-visit Dr. Brodie lombardi DO -[facility] Start: 01-23-2025 End: 01-23-[address] Joann Live MD Work Phone: -Pulmonary Services/Neurology Start: 01-23-2025 End: 01-23-2025 Patient encounter procedure Negin Acevedo CAN CRIMPER-C -Pulmonary Services/Neurology Work Phone: Start: 01-23-2025 End: 01-23-2025 ambulatory Negin Acevedo CAN CRIMPER Facility:[facility] Start: 01-21-2025 End: 01-21-2025 Patient encounter procedure Negin Acevedo CAN CRIMPER-C -Cat Scan [facility] Work Phone: Start: 01-21-2025 End: 01-21-[address] Joann Live MD Work Phone: -Cat Scan [facility] Start: 01-08-2025 End: 01-08-[address] Joann Live MD Work Phone: -[facility] Start: 01-08-2025 End: 01-08-2025 Patient encounter procedure Negin Acevedo CAN CRIMPER-C -[facility] Start: 01-08-2025 End: 01-08-2025 Patient encounter procedure Negin Acevedo CAN CRIMPER-C -[facility] Work Phone: Start: 01-08-2025 End: 01-08-[address] Joann Live MD Work Phone: [facility] Work Phone: Start: 01-07-2025 End: 01-07-2025 Patient encounter procedure Chayo Black CAN CRIMPER-C -[facility] Work Phone: Start: 01-07-2025 End: 01-08-[address] Joann Live MD Work Phone: [facility] Work Phone: Start: 01-07-2025 End: 01-07-2025 ambulatory Chayo Black NP Facility:[facility] Start: 12-17-2024 End: 01-17-2025 ambulatory Edward Martinez MD Work Phone: [facility] [place] Start: 10-22-2024 ambulatory Joann Maria T Facility: [facility] Start: 10-22-2024 Non-patient / Non-visit Dr. Justus Robertson MD -[facility] Start: 10-22-2024 End: 10-22-2024 Admission to same day surgery center Dr. Justus Robertson MD -Endoscopy Work Phone: Start: 10-22-2024 End: 10-22-[address] Joann Live MD Work Phone: [facility] Work Phone: Start: 09-10-2024 End: 09-10-[address] Joann Live MD Work Phone: [facility] Work Phone: Start: 09-10-2024 End: 09-10-[address] Joann Live MD -Outpatient Breast Imaging Work Phone: Start: 09-10-2024 End: 09-10-2024 ambulatory Joann Live Facility:[facility] Start: 08-15-2024 Non-patient / Non-visit Dr. Jose Live MD Work Phone: -[facility] Work Phone: Start: 08-15-2024 ambulatory Joann Live Facility: [facility] Start: 01-17-2024 ambulatory Edward sánchez MD Work Phone: Internal Medicine [place] [id number] Start: 09-20-2023 Non-patient / Non-visit Dr. Jose Live Work Phone: [facility] Start: 09-20-2023 End: 09-20-[address] Joann Live Work Phone: [facility] Work Phone: Start: 09-20-2023 End: 09-20-[address] Joann Live Work Phone: [facility]-Pulmonary Services/Neurology Work Phone: Start: 08-28-2023 End: 08-28-[address] [facility] Work Phone: Start: 08-28-2023 End: 08-28-[address] [facility] Ul[facility]ound Work Phone: Start: 08-08-2023 End: 08-08-[address] [facility] Work Phone: Start: 08-08-2023 End: 08-08-[address] [facility]-Laboratory, Christelle Montenegro [facility] Start: 07-08-2023 End: 07-08-2023 Emergency department patient visit [facility] Work Phone: Start: 12-06-2022 End: 12-06-2022 Subsequent hospital visit by physician [facility] Work Phone: Radiology Comment on above: Abnormal screening m ammogram [R92.8] Start: 11-15-2022 End: 11-15-2022 Patient encounter procedure Kandice Older RODBUSTER.CUSHION COVER INSPECTOR Work Phone: [facility] [place] Comment on above: Skin lesion of left leg (Primary Dx); Acute back pain with sciatica, right; Elevated liver enzymes; Special screening for malignant neoplasms, colon; Encounter for immunization Start: 11-08-2022 End: 11-08-2022 ambulatory Ton Golias PT Work Phone: [facility] Comment on above: Acute back pain with sciatica, right (Primary Dx) Start: 10-31-2022 Telephone encounter Edward gutierrez MD Work Phone: [facility] [place] Comment on above: mammogram orders/US Start: 10-27-2022 Telephone encounter Edward gutierrez MD Work Phone: [facility] [place] Comment on above: Medication Request Start: 10-26-2022 Documentation procedure Mammog ana Coordinator [facility] Start: 10-26-2022 Letter encounter Mammography Coordinator [facility] Department Start: 10-25-2022 End: 10-25-2022 Subsequent hospital visit by physician Screen Mammo [facility] Comment on above: Screening mammogram for breast cancer [Z12.31] Start: 10-19-2022 End: 10-19-2022 Subsequent hospital visit by physician Xr [facility] [place] Work Phone: Radiology Comment on above: Acute bilateral low back pain with right-sided sciatica [M54.41] Start: 10-18-2022 End: 10-18-2022 Patient encounter procedure Kan MACIEL Work Phone: [facility] Comment on above: Acute midline low ba ck pain with right-sided sciatica (Primary Dx) Procedures Date Procedure Procedure Detail Performing Clinician Start: 05-12-[address] Joann Live MD Work Phone: Start: 04-22-[address] Joann Live MD Work Phone: Start: 04-21-[address] Jaonn Live MD Work Phone: Start: 04-14-[address] Joann Live MD Work Phone: Start: 04-07-2025 Total iron binding c apacity measurement Dr. Joann Live MD Work Phone: Start: 03-24-[address] Joann Live MD Work Phone: Start: 03-03-2025 Plain chest X-ray Dr. Endy [...] t berenice with image limited Kandice Older RODBUSTER.CUSHION COVER INSPECTOR Work Phone: Start: 12-06-2022 Digital breast tomos ynthesis bilateral Kandice Older RODBUSTER.CUSHION COVER INSPECTOR Work Phone: Start: 10-25-2022 Lipid 1996 panel - S maxine or Plasma [facility] 1 Work Phone: Start: 10-25-2022 End: 10-25-2022 Mammography Edward Velez Work Phone: Start: 10-19-2022 Radex spine lumbosac ral 2/3 views Edward Martinez MD Work Phone: Start: 07-31-2019 Mammography Kan MACIEL Work Phone: Plan of Treatment Date Care Activity Detail Author Start: 11-15-2032 Tetanus vaccination [facility] Start: 11-15-2032 Urine microalbumin profile [facility] Start: 10-26-2027 Lipid 1996 panel - Serum or Plasma Lipid Screening [facility] Start: 10-26-2027 Lipid panel Lipid Screening [facility] Start: 10-26-2027 LIPID SCREEN LIPID SCREEN [facility] Start: 10-25-2025 DIABETES SCREEN DIABETES SCREEN [facility] Start: 10-25-2025 Diabetes Screening Diabetes Screening [facility] Start: 06-18-2025 End: 05-21-2026 CT Chest W contrast IV CT CHEST WITH CONTRAST Imaging Routine Squamous cell lung cancer, right Expected: 06/18/2025, Expires: 05/21/2026 [facility] Comment on above: Expected: 06/18/2025, Expires: Start: 06-18-2025 End: 06-18-2025 Patient encounter procedure 06/18/2025 12:00 PM EST Office Visit Division of Thoracic Surgery at [facility] [address] [place] [id number] Bryanna Martinez MD [address] [place] [address] Division of Thoracic Surgery at [facility] Start: 05-21-2025 End: 05-21-2026 Measurement of respiratory function PFT STANDARD PFT Routine Squamous cell lung cancer, right Expected: 05/21/2025, Expires: 05/21/2026 [facility] Comment on above: Expected: 05/21/2025, Expires: Start: 05-12-2025 Registered Recurring Registered Recurring -[facility] Start: 05-12-2025 End: 05-12-2025 Patient encounter procedure Chemotherapy management, encounter for -[facility] Work Phone: Start: 04-14-2025 Registered Recurring Registered Recurring -[facility] Start: 04-14-2025 End: 04-14-2025 Patient encounter procedure Chemotherapy management, encounter for -[facility] Work Phone: Start: 04-01-2025 CBC W Auto Differential panel - Blood [facility] Start: 04-01-2025 Comprehensive metabolic 2000 panel - Serum or Plasma [facility] Start: 04-01-[address] [facility] Start: 04-01-2025 [facility] Start: 03-24-2025 [facility] Start: 03-24-2025 Venous catheter care management [facility] Start: 03-17-2025 COVID-19 VACCINE ( season) COVID-19 VACCINE ( season) [facility] Start: 03-17-2025 Influenza vaccination [facility] Start: 03-03-2025 Anesthesia access central venous circulation ANESTH VASCULAR ACCESS [facility] Start: 03-03-2025 Insj tunneled ctr vad w/subq port age 4 yr/> INSERT TUNNELED CV CATH [facility] Start: 03-03-[address] [facility] Start: 01-30-2025 Positron emission tomography with computed tomography [facility] Start: 01-24-2025 Continuous pulse oximetry [facility] Start: 01-23-[address] [facility] Start: 01-21-2025 CORE NDL BX LNG/MED PERQ CORE NDL BX LNG/MED PERQ [facility] Start: 01-21-2025 Following clinical pathway protocol [facility] Start: 01-21-2025 Catheterization of vein [facility] Start: 01-21-[address] [facility] Start: 01-21-[address] [facility] Start: 01-21-2025 Vital signs measurements [facility] Start: 01-21-2025 Measurement of respiratory function [facility] Start: 2024 Screening for malignant neoplasm of lung LUNG CANCER SCREENING [facility] Start: 2024 Shingrix Vaccine (1 of 2) Shingrix Vaccine (1 of 2) [facility] Start: 2024 Zoster vaccine hzv live for subcutaneous use ZOSTER (SHINGLES) VACCINE (1 of 2) [facility] Start: 10-22-2024 Colonoscopy flx dx w/collj spec when pfrmd DIAGNOSTIC COLONOSCOPY [facility] Start: 10-22-[address] [facility] Start: 03-17-2024 Covid-19 Vaccine () Covid-19 Vaccine () [facility] Start: 03-17-2024 Influenza vaccination Influenza Vaccine (#1) [facility] Start: 12-07-2023 Mammography Mammogram Screening [facility] Start: 12-07-2023 Screening for malignant neoplasm of breast [facility] Start: 10-26-2023 Mammography MAMMOGRAM [facility] Start: 10-20-2023 COVID-19 VACCINE (3 - Booster for Pfizer series) COVID-19 VACCINE (3 - Booster for Pfizer series) [facility] Comment on above: Postponed from 01/16/2021 (Declined at t his time) Start: 07-17-2023 Behavioral Health Screening Behavioral Health Screening [facility] Start: 07-08-2023 [facility] Start: 07-08-2023 Radiography of thoracic spine Thoracic Spine [address] [facility] Start: 07-08-2023 X-ray of cervical spine Cerv Spine 2 or 3 Views [facility] Start: 07-08-2023 XR Cervical spine [address] [facility] Start: 07-08-2023 XR Thoracic spine 3 Views [facility] Start: 05-18-2023 End: 07-18-2023 Comprehensive metabolic 2000 panel - Serum or Plasma COMP METABOLIC PANEL Lab Routine Elevated liver enzymes Expected: 05/18/2023 (Approximate), Expires: 07/18/2023 [facility] Work Phone: Comment on above: Expected: 05/18/2023 (Approximate), Expi res: 07/18/2023 Start: 03-17-2023 Covid-19 Vaccine () Covid-19 Vaccine () [facility] Start: 03-17-2023 Influenza vaccination [facility] Start: 07-17-2022 DEPRESSION ASSESSMENT DEPRESSION ASSESSMENT [facility] Start: 01-29-2021 LIPID SCREEN LIPID SCREEN [facility] Start: 01-16-2021 COVID-19 VACCINE (3 - Booster for Pfizer series) COVID-19 VACCINE (3 - Booster for Pfizer series) [facility] Start: 07-31-2020 Mammography MAMMOGRAM [facility] Start: 11-27-2019 COLOGUARD (FIT-DNA) COLOGUARD (FIT-DNA) [facility] Start: 11-27-2019 Colonoscopy COLONOSCOPY [facility] Start: 11-27-2019 COLORECTAL CANCER SCREENING COLORECTAL CANCER SCREENING [facility] Start: 11-27-[address] COLONOGRAPHY [facility] Start: 11-27-2019 DIABETES SCREEN DIABETES SCREEN [facility] Start: 11-27-2019 FECAL OCCULT BLOOD FECAL OCCULT BLOOD [facility] Start: 11-27-2019 Screening for malignant neoplasm of colon [facility] Start: 11-27-2019 SIGMOIDOSCOPY SIGMOIDOSCOPY [facility] Start: 01-20-2017 End: 01-20-2017 Appointment Appointment [facility] Work Phone: Start: 12-30-2016 PNEUMOCOCCAL (2 - PCV) PNEUMOCOCCAL (2 - PCV) [facility] Start: 2014 Lipid panel LIPID SCREENING [facility] Start: 11-27-1995 Screening for malignant neoplasm of cervix CERVICAL CANCER SCREENING DISCUSSION [facility] Start: 1993 Hepatitis B vaccination HEP B VACCINE (1 of 3 - 19+ 3-dose series) [facility] Start: 1993 Hepatitis B Vaccine (1 of 3 - 19+ 3-dose series) Hepatitis B Vaccine (1 of 3 - 19+ 3-dose series) [facility] Start: 1993 Urine microalbumin profile DTAP,TDAP,TD (1 - Tdap) [facility] Start: 1992 Anxiety Screening Anxiety Screening [facility] Start: 1992 Depression Screening Depression Screening [facility] Start: 1992 HEPATITIS C SCREENING HEPATITIS C SCREENING [facility] Start: 1992 HIV SCREENING HIV SCREENING [facility] Start: 1989 HIV screening HIV SCREENING DISCUSSION [place] Start: 1974 HEPATITIS B (1 of 3 - 3-dose series) HEPATITIS B (1 of 3 - 3-dose series) [facility] Start: 1974 Hepatitis B Vaccine (1 of 3 - 3-dose series) Hepatitis B Vaccine (1 of 3 - 3-dose series) [facility] Start: 1974 Hepatitis C screening HEPATITIS C VIRUS SCREENING [facility] Alanine aminotransfe rase [Enzymatic activity/volume] in Serum or Plasma [facility] Albumin [Mass/volume ] in Serum or Plasma [facility] Alkaline phosphatase [Enzymatic activity/volume] in Serum or Plasma [facility] Ldwaj-[id number] measurement [facility] Anion gap in Serum o r Plasma [facility] Bilirubin, total measurement [facility] BUN/Creatinine ratio [facility] Calcium [Mass/volume ] in Serum or Plasma [facility] Carbon dioxide, tota l [Moles/volume] in Central venous blood [facility] CBC W Auto Different ial panel - Blood [facility] CBC W Auto Different ial panel - Blood [facility] Colonoscopy [facility] Comprehensive metabo lic 1999 panel - Serum or Plasma [facility] Comprehensive metabo lic 1999 panel - Serum or Plasma [facility] Continuous pulse oximetry [facility] Creatinine [Mass/vol ume] in Serum or Plasma [facility] CT Chest [facility] End: 02-15-2025 DBT Breast - bilateral screening HERMILA SCREENING [facility] Routine Encounter for screening mammogram for breast cancer 1 Occurrences starting 01/17/2024 until 02/15/2025 [facility] Work Phone: Comment on above: 1 Occurrences starting 01/17/2024 until 02/15/2025 End: 01-16-2026 DBT Breast - bilateral screening HERMILA SCREENING [facility] Radiology Routine Encounter for screening mammogram for breast cancer 1 Occurrences starting 12/17/2024 until 01/16/2026 [facility] Work Phone: Comment on above: 1 Occurrences starting 12/17/2024 until 01/16/2026 Echocardiography ECHOCARDIOGRAM Echocardiography Routine Squamous cell lung cancer, right Preoperative evaluation to rule out surgical contraindication Shortness of breath Ordered: 05/21/2025 [facility] Comment on above: Ordered: 05/21/2025 Erythrocyte mean corpuscular volume determination [facility] Ferritin [Mass/volum e] in Serum or Plasma [facility] Folate [Moles/volume ] in Serum or Plasma [facility] Glucose [Mass/volume ] in Serum or Plasma [facility] Hematocrit [Volume Fraction] of Blood [facility] Hemoglobin [Mass/vol ume] in Blood [facility] Iron and Iron bindin g capacity panel - Serum or Plasma [facility] Lactate dehydrogenas e measurement [facility] Leukocytes [#/volume ] in Blood [facility] Magnesium measurement [facility] End: 11-30-2023 HERMILA DIAGNOSTIC BILATERAL HERMILA DIAGNOSTIC BILATERAL Radiology Routine Abnormal screening mammogram 1 Occurrences starting 10/31/2022 until 11/30/2023 [facility] Work Phone: Comment on above: 1 Occurrences starting 10/31/2022 until 11/30/2023 Mean corpuscular hemoglobin concentration determination [facility] Mean corpuscular hemoglobin determination [facility] Measurement of renal function [facility] MR Brain WO and W contrast IV [facility] Neutrophil count [facility] Neutrophil percent differential count [facility] Partial thromboplast in time, activated [facility] Patient Education [facility] Work Phone: Patient referral [facility] Work Phone: Platelets [#/volume] in Blood [facility] Platelets [#/volume] in Blood [facility] Potassium measurement [facility] Procedure [facility] Prothrombin time [facility] Red blood cell count [facility] Red cell distributio n width determination [facility] End: 11-16-2023 Screening colonoscopy COLONOSCOPY SCREENING Endoscopy Routine Special screening for malignant neoplasms, colon 1 Occurrences starting 11/15/2022 until 11/16/2023 [facility] Work Phone: Comment on above: 1 Occurrences starting 11/15/2022 until 11/16/[address] [facility] Sodium measurement [facility] Total protein measurement [facility] Urea nitrogen [Mass/volume] in Serum or Plasma [facility] US Abdomen limited [facility] End: 11-30-2023 US BREAST LTD LEFT US BREAST LTD LEFT Radiology Routine Abnormal screening mammogram 1 Occurrences starting 10/31/2022 until 11/30/2023 [facility] Work Phone: Comment on above: 1 Occurrences starting 10/31/2022 until 11/30/2023 End: 11-30-2023 US BREAST LTD RIGHT US BREAST LTD RIGHT Radiology Routine Abnormal screening mammogram 1 Occurrences starting 10/31/2022 until 11/30/2023 [facility] Work Phone: Comment on above: 1 Occurrences starting 10/31/2022 until 11/30/2023 US.doppler Lower extremity vein [facility] Vitamin B12 measurement [facility] Walking distance 6 minutes [facility] Work Phone: [facility] Immunizations Immunization Date Immunization Notes Care Provider Jamil [facility] 11-15-2022 pneumococcal (PCV20) vaccine, 20 valent (PREVNAR 20) Kandice Older RODBUSTER.CUSHION COVER INSPECTOR Work Phone: [facility] 11-15-2022 tetanus toxoid, redu juan diphtheria toxoid, and acellular pertussis vaccine, adsorbed Kandice Older RODBUSTER.CUSHION COVER INSPECTOR Work Phone: [facility] 11-15-2022 pneumococcal Conjuga te, unspecified formulation Kandice Older RODBUSTER.CUSHION COVER INSPECTOR Work Phone: [facility] Work Phone: 11-21-2020 COVID-19 original vaccine, age 12+ yr, monovalent (PFIZER-BIONTECH - PURPLE TOP) Kandice Older RODBUSTER.CUSHION COVER INSPECTOR Work Phone: [facility] 10-31-2020 COVID-19 original vaccine, age 12+ yr, monovalent (PFIZER-BIONTECH - PURPLE TOP) Kandice Older RODBUSTER.CUSHION COVER INSPECTOR Work Phone: [facility] 06-23-2016 influenza, injectabl e, quadrivalent, contains preservative Krislaronn Aberegg PA Work Phone: [facility] 06-23-2016 influenza virus vacc ine, unspecified formulation Us 1 Work Phone: [facility] 12-31-2015 pneumococcal polysaccharide vaccine, 23 valent Kan MACIEL Work Phone: [facility] Payers Date Payer Category Payer Medicaid (Managed Care) [facility] Plan [id number] 2025 Medicaid Medicaid [id number] 2025 Medicaid [id number] 2024 Self-pay 2024 Unknown [id number] 2022 Private Health Insurance [facility] [id number] 2022 Unknown [id number] 2016 Unknown [facility] [id number] 2015 Unknown [id number] 1974 Unknown [id number] .0.1.782903.3.579.2. 594 1974 Unknown [id number] .0.1.549225.3.579.2. 594 1974 Unknown [id number] .840.1.731955.3.579.2. 594 Self-pay SEL[employer] PAY INSURANCE [id number] Unknown [id number] 2.840.1.514670.3.579.2. 462 Unknown [id number] 2.840.1.313320.3.579.2. 462 Unknown [id number] 2.840.1.063926.3.579.2. 462 Unknown [id number] 2.840.1.973510.3.579.2. 462 Unknown [id number] 2.840.1.826176.3.579.2. 462 Unknown [id number] 2.16840.1.414643.3.579.2. 462 Unknown [id number] 2.16840.1.965997.3.579.2. 462 Unknown [id number] 2.840.1.216395.3.579.2. 462 Unknown [id number] 2.16.840.1.201996.3.579.2. 462 Unknown [id number] 2.16.840.1.443817.3.579.2. 462 Unknown [id number] 2.16.840.1.220531.3.579.2. 462 Unknown [id number] 2.16.840.1.884410.3.579.2. 462 Unknown [id number] 2.16.840.1.611386.3.579.2. 462 Unknown [id number] 2.16.840.1.805367.3.579.2. 462 Unknown [id number] 2.16.840.1.667257.3.579.2. 462 Unknown [id number] 2.840.1.333738.3.579.2. 462 Unknown [id number] 2.840.1.966014.3.579.2. 462 Unknown [id number] 2.16.840.1.471671.3.579.2. 462 Unknown [id number] 2.16840.1.736278.3.579.2. 462 Unknown [id number] 2.840.1.686914.3.579.2. 462 Unknown [id number] 2.840.1.209551.3.579.2. 462 Unknown [id number] 2.16.840.1.746803.3.579.2. 462 Unknown [id number] 2.16.840.1.866752.3.579.2. 462 Unknown [id number] 2.16.840.1.829565.3.579.2. 462 Unknown [id number] 2.16.840.1.906189.3.579.2. 462 Unknown [id number] 2.16.840.1.412069.3.579.2. 462 Unknown [id number] 2.16.840.1.334610.3.579.2. 462 Unknown [id number] 2.16.840.1.394256.3.579.2. 462 Unknown [id number] 2.16.840.1.778064.3.579.2. 462 Unknown [id number] 2.16.840.1.514002.3.579.2. 462 Unknown [id number] 2.16.840.1.189439.3.579.2. 462 Unknown [id number] 2.16.840.1.628909.3.579.2. 462 Unknown [id number] 2.16.840.1.901562.3.579.2. 462 Unknown [id number] 2.16.840.1.604100.3.579.2. 462 Unknown [id number] 2.16.840.1.056724.3.579.2. 462 Unknown [id number] 2.16.840.1.078973.3.579.2. 462 Unknown [id number] 2.16.840.1.888132.3.579.2. 462 Social History Date Type Detail Facility Start: 10-18-2022 End: 02-21-2025 Tobacco smoking status NHIS Smokes tobacco daily [facility] Start: 07-17-1987 End: 02-14-2025 History of tobacco use Cigarette Smoker [facility] Start: 10-18-2022 End: 05-21-2025 Cigarettes smoked current (pack per day) - Reported 1 [facility] Start: 10-18-2022 End: 03-12-2025 Tobacco use and exposure Smokeless tobacco non-user [facility] Start: 10-18-2022 Alcohol intake Current drinke r of alcohol (finding) [facility] Start: 10-18-2022 History SDOH Alcohol Frequency 5 [facility] Start: 10-18-2022 History SDOH Alcohol Std Drinks 2 [facility] Start: 10-18-2022 History SDOH Alcohol Binge 1 [facility] Start: 10-18-2022 History SDOH Physica l Activity DPW 7 [facility] Start: 10-18-2022 History SDOH Stress 3 [facility] Start: 01-27-2016 [facility] Start: 1975 Sex Assigned At Not on file [facility] Start: 10-19-2022 End: 05-24-2025 Alcohol intake Ex-drinker (finding) [facility] Start: 10-18-2022 End: 05-21-2025 Social connection and isolation panel [facility] Do you belong to any clubs or organizations such as samaritan groups, unions, fraternal or athletic groups, or school groups? No [facility] Are you now , , , , never or living with a partner? [facility] How often to you hav e a drink containing alcohol? 4 or more times a week [facility] How many standard drinks containing alcohol do you have on a typical day? 3 or 4 [facility] How often do you hav e 6 or more drinks on 1 occasion? Never [facility] How hard is it for y ou to pay for the very basics like food, housing, medical care, and heating Somewhat hard [facility] Adult Depression Screening Assessment 0 [facility] Work Phone: Do you feel stress - tense, restless, nervous, or anxious, or unable to sleep at night because your mind is troubled all the time - these days [OSQ] To some extent [facility] (I/We) worried whebrian er (my/our) food would run out before (I/we) got money to buy more. Sometimes true [facility] The food that (I/we) bought just didn't last, and (I/we) didn't have money to get more. Never true [facility] Start: 07-08-2023 End: 07-08-2023 Tobacco smoking status LAIS Unknown if ever smoked [facility] Start: 1975 Sex Assigned At Female [facility] Start: 09-24-2024 End: 02-04-2025 Sex Female (finding) [facility] Start: 10-22-2024 Vapor Vapor [facility] Start: 01-07-2025 End: 03-12-2025 Tobacco smoking status NHIS Ex-smoker (finding) [facility] Start: 07-17-1987 End: 02-14-2025 History of tobacco use Current smoker [facility] Start: 03-11-2025 Gender identity Identifies as female gender (finding) [facility] Start: 03-11-2025 Sexual orientation Heterosexual (missael cuevas) [facility] NEGATED: Highlighted row Not [facility] Medical Equipment Procedure Code Equipment Code Equipment Origin al Text Equipment Identifier Dates Insertion, vascular access port ([id number]) Vascular port/catheter [id number] FDA Start: 03-03-2025 Goals Date Patient Goal Desired Activity /State Mental Status Date Assessment Result Facility 03-03-2025 Cognitive function Voice/Name [facility] Work Phone: 01-21-2025 Cognitive function Awake;Alert;Appropriat e [facility] Work Phone: 10-22-2024 Cognitive function Voice/Name [facility] Work Phone: Clinical Notes 06-23-2016 to 05-21-2025 Kassy Clements APRN-CUSHION COVER INSPECTOR - 05/21/2025 1:30 PM Lauren Voss PA-C - 03/12/2025 11:00 AM Freddie Voss PA-C - 03/12/2025 11:00 AM EDT Note Date & Type Note Facility 05-21-2025 History of Present illness Narrative PROGRESS NOTE Chief complaint: NSCLC right upper lobe HPI: Rosario Kaiser is a 49 y.o. 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 She is having neoadjuvant carbo/taxol/Imfluzi locally with Dr. Cabrera in [place], and is scheduled for her last cycle on 06/02/25. She reports she is tolerating therapy ok, she is tired and dizzy due to treatment. Immunotherapy causes rashes and itching. She is short of breath, which is new this week, but she also has a sore throat, cough, and drainage. No fevers. She has persistent right arm pain and weakness. Oncology History Squamous cell lung cancer, right 01/21/2025 Initial Diagnosis Outside Block [id number] (01/21/25) A. Lung, right, CT-guided core biopsy: Poorly-differentiated squamous cell carcinoma 03/24/2025 - Chemotherapy neoadjuvant carboplatin, paclitaxel, durvalumuab 03/24/2025 - Immunotherapy neoadjuvant carboplatin, paclitaxel, durvalumuab Review of Systems Negative for fevers, chills, fatigue, weight loss, SOB, ANTONIO, cough, hemoptysis, or pain. Physical Exam BP 127/75 (BP Location: Right arm, BP Position: Sitting) Pulse 87 Temp 97.6 F (36.4 C) (Oral) Resp 18 Wt 71 kg (156 lb 9.6 oz) Comment: with shoes on SpO2 99% BMI 24.93 kg/m Smoking Status Former on RA HEART: regular rate and rhythm. No murmurs, rubs or gallops. LUNGS: Breathing non-labored, lungs clear bilaterally. LYMPH NODES: No cervical or supraclavicular lymphadenopathy is noted. Imaging None today Assessment/Plan: Problem Squamous Cell Lung Cancer, Right Rosario Kaiser is a 49 y.o. 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 She is having neoadjuvant carbo/taxol/Imfluzi locally with Dr. Cabrera in [place], and is scheduled for her last cycle on 06/02/25. Return to see Dr. Martinez with a restaging CT chest with contrast 2 weeks after that cycle, as well as a preoperative echo and PFTs. The patient was seen, images reviewed, and plan of care discussed with Bryanna Martinez MD. GINNY Blanco #[id number] Cosigned by Bryanna Martinez MD at 05/24/2025 12:49 PM EST documented in this encounter [facility] 05-01-2025 Progress note [facility] 04-21-2025 Progress note [facility] 04-14-2025 Progress note [facility] 04-07-2025 Progress note [facility] 03-19-2025 Note Received is a reques t for second opinion consultation by Dr.Robert Davion Martinez. "Review of outside slides [place] Diagnosis: Lung Accession Number: [id number]" Preoperative Diagnosis: Other nonspecific abnormal findings. [facility] Comment on above: Performed By: #### S URGP #### [facility] (DEFAULT) [address] [place] [address] 03-12-2025 History and physical note Images from the original note were not included. History and Physical Patient: Rosario Kaiser Date: 03/12/2025 11:03 AM Attending Physician: Bryanna Martinez MD Chief Complaint: Chief Complaint Patient presents with New Patient Occasional nonproductive cough. Pt feeling very anxious and she will ask her oncologist for a referral to psychosocial HPI: Rosario Kaiser is a 49 y.o. female current smoker (smoked for about 30 years, quit cigareetes last year and now vapes daily) with a pmhx of alochol abuse, COPD, migraines who was referred for evaluation of new diagnosis of RUL SCC. She had a CT scan for lung cancer screening on 01/07/25 that showed a 4.5cm right apex mass. She then underwent a CT guided biopsy on 01/21/25 positive for squamous cell carcinoma. A PET was obtained on 02/11 showing a R hilar mass with SUV max of 14.5, and a large right upper lobe mass with SUV max of 16.4. Clinical stage is [id number]. She has had a port placed with plans to begin chemo/IO with local oncologist. She has no significant SOB. She is fairly active with walking her dog. She is able to climb stairs but has some ANTONIO. She denies a hx of TX and blood clots. She reports on her recent brain MRI, she was informed there were 2 areas of prior infarcation but was unaware of these. She is not on any blood thinners. Past Medical/Surgical History Past Medical History[1] Past Surgical History[2] Oncology History No problem history exists. She is not on home oxygen She does not have a history of stroke. She does not have any residual deficits. Family History Family History Problem Relation Age of Onset Alcoholism Mother Drug Abuse Mother Hypertension Mother Uterine Cancer Mother Muscle Disorder Maternal Uncle Lung Cancer Maternal Grandmother Breast Cancer Paternal Grandmother Heart Disease - Other Paternal Grandfather Social History Social History Tobacco Use Smoking status: Former Current packs/day: 0.00 Average packs/day: 1 pack/day for 37.6 years (37.6 ttl pk-yrs) Types: Cigarettes Start date: 1987 Quit date: 02/14/2025 Years since quittin.0 Smokeless tobacco: Never Substance Use Topics Alcohol use: Not Currently Alcohol/week: 8.0 standard drinks of alcohol Types: 8 Standard drinks or equivalent per week She does not have a history of daily use of narcotics for >30 days prior to this visit Living arrangement at the time of this visit: With family Medications Current Outpatient Medications Medication Sig Albuterol 108 (90 Base) MCG/ACT Aero Soln inhaler Inhale 2 puffs every 4 hours as needed for Shortness of Breath or Wheezing. Loratadine 10 MG tablet Take 1 tablet by mouth daily. LORazepam 0.5 MG tablet Take 1 tablet by mouth. Magnesium 250 MG capsule Take 250 mg by mouth daily. Multiple Vitamin (Multi-Vitamin) tablet Take 1 tablet by mouth daily. Cetirizine 10 MG tablet Take 1 tablet by mouth daily. (Patient not taking: Reported on 03/12/2025) Ibuprofen 100 MG tablet Take 1 tablet by mouth Every 6 hours as needed. (Patient not taking: Reported on 03/12/2025) Turmeric (QC TUMERIC COMPLEX PO) Take 400 mg by mouth daily. (Patient not taking: Reported on 03/12/2025) She is not on chronic immunosuppressive therapy/corticosteroids >10 days at the time of this visit She is not on chronic anticoagulation >10 days at the time of this visit Allergies/Immunizations Allergies: Sulfamethoxazole and Trimethoprim Immunizations: Immunization History Administered Date(s) Administered [id number] COVID-19 monovalent vaccine, mRNA, Pfizer, 0.3 ML 10/31/2020, 11/21/2020 Review of Systems At the time of the visit patient reports ROS per HPI. All other systems queried and are negative. OBJECTIVE: Physical Exam Blood pressure 119/67, pulse 76, temperature 98.4 F (36.9 C), temperature source Oral, resp. rate 16, height 1.688 m (5' 6.46"), weight 70.3 kg (155 lb), SpO2 97%. on RA Constitutional: she is alert, oriented, well-developed, well-nourished, and in no acute distress. HEENT: Oropharynx is clear and moist. Extraocular motions are normal. Neck: Neck supple. No tracheal deviation present. No thyromegaly present. Cardiovascular: Normal rate and regular rhythm. No murmur heard. Pulmonary/Chest: Breathing non-labored. Lung sounds normal without wheezes or rales. She exhibits no crepitus. Musculoskeletal: She exhibits no edema. Lymphadenopathy: She has no cervical adenopathy. Neurological: She is alert and oriented. Skin: No rash noted. [facility] Imaging/Procedures/Results Review: Personal review completed of: CT guided biopsy 01/21/[address] 02/11/25 CT chest 01/07/25 MRI brain 02/28/25 ASSESSMENT/PLAN: Rosario Kaiser is a 49 y.o. female current smoker (smoked for about 30 years, quit cigareetes last year and now vapes daily) with a pmhx of alochol abuse, COPD, migraines who was referred for evaluation of new diagnosis of RUL SCC. Imaging and relevant data reviewed with Dr. Martinez. We agree with the plan for neoadjuvant chemo/IO given tumor size and LN involvement. We will plan for follow up after completion of neoadjuvant therapy with repeat imaging. We also discussed obtaining cardiac stress test and PFTs for preoperative workup. She would prefer to have these done locally and can be ordered by her local provider. Smoking cessation discussed. Discussed risks of continued smoking/vaping leading up to surgery including increased risk of prolonged air leak and pneumonia. The patient was seen and plan of care was discussed with Bryanna Martinez MD. Zoë Voss PA-C [1] Past Medical History: Diagnosis Date Alcohol abuse Arthritis Cervical disc disorder with radiculopathy COPD (chronic obstructive pulmonary disease) Elevated liver enzymes Herniated lumbar intervertebral disc Migraine Nipple discharge PONV (postoperative nausea and vomiting) Squamous cell carcinoma of upper lobe of right lung Stroke Uterine fibroid [2] Past Surgical History: Procedure Laterality Date INSERTION CVC TUNNELED W/ PORT PUMP Left 03/03/2025 BREAST LUMPECTOMY Right EXCISION PILONIDAL CYST HYSTERECTOMY TUBAL LIGATION Cosigned by Bryanna Martinez MD at 03/17/2025 12:14 PM EDT Associated attestation - Bryanna Martinez MD - 03/17/2025 12:14 PM EDT Thoracic Surgery Attending I saw and examined Rosario Kaiser today with my LORRIE, Zoë Voss. Rosario Kaiser is a 49 y.o. 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 I agree with the history of present illness, past medical history, family history, social history, medication list, allergies listed, and current complaints. I have personally reviewed all labs and radiographs as well as medical records and I confirm the findings noted above. I agree with the assessment and plan as noted above. The imaging reviewed today includes: CT scan for lung cancer screening on 01/07/25 that showed a 4.5cm right apex mass. CT guided biopsy on 01/21/25 positive for squamous cell carcinoma. PDL-1 TPS was 90%. PET CT SCAN on 02/11 showed a hypermetabolic right hilar lymphadenopathy with SUVmax of 14.5, and a large right upper lobe lung mass with SUVmax of 16.4. Assessment and Plan Rosario Kaiser is a 49 y.o. 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 I recommended neoadjuvant chemo-immunotherapy given the high PDL-1 expression. The patient will follow up with a repeat CT scan of the chest after completion of 3 cycles of chemo-immunotherapy to discuss lobectomy. The plan was developed mutually at the time of the clinic visit. I provided a substantive portion of the care for this patient. I personally performed all aspects of the medical decision making for this encounter. I have reviewed and verified this documentation and it accurately reflects our care. Bryanna Martinez MD [facility] Work Phone: 03-12-2025 History and physical note Images from the original note were not included. History and Physical Patient: Rosario Kaiser Date: 03/12/2025 11:03 AM Attending Physician: Bryanna Martinez MD Chief Complaint: Chief Complaint Patient presents with New Patient Occasional nonproductive cough. Pt feeling very anxious and she will ask her oncologist for a referral to psychosocial HPI: Rosario Kaiser is a 49 y.o. female current smoker (smoked for about 30 years, quit cigareetes last year and now vapes daily) with a pmhx of alochol abuse, COPD, migraines who was referred for evaluation of new diagnosis of RUL SCC. She had a CT scan for lung cancer screening on 01/07/25 that showed a 4.5cm right apex mass. She then underwent a CT guided biopsy on 01/21/25 positive for squamous cell carcinoma. A PET was obtained on 02/11 showing a R hilar mass with SUV max of 14.5, and a large right upper lobe mass with SUV max of 16.4. Clinical stage is [id number]. She has had a port placed with plans to begin chemo/IO with local oncologist. She has no significant SOB. She is fairly active with walking her dog. She is able to climb stairs but has some ANTONIO. She denies a hx of TX and blood clots. She reports on her recent brain MRI, she was informed there were 2 areas of prior infarcation but was unaware of these. She is not on any blood thinners. Past Medical/Surgical History Past Medical History[1] Past Surgical History[2] Oncology History No problem history exists. She is not on home oxygen She does not have a history of stroke. She does not have any residual deficits. Family History Family History Problem Relation Age of Onset Alcoholism Mother Drug Abuse Mother Hypertension Mother Uterine Cancer Mother Muscle Disorder Maternal Uncle Lung Cancer Maternal Grandmother Breast Cancer Paternal Grandmother Heart Disease - Other Paternal Grandfather Social History Social History Tobacco Use Smoking status: Former Current packs/day: 0.00 Average packs/day: 1 pack/day for 37.6 years (37.6 ttl pk-yrs) Types: Cigarettes Start date: 1987 Quit date: 02/14/2025 Years since quittin.0 Smokeless tobacco: Never Substance Use Topics Alcohol use: Not Currently Alcohol/week: 8.0 standard drinks of alcohol Types: 8 Standard drinks or equivalent per week She does not have a history of daily use of narcotics for >30 days prior to this visit Living arrangement at the time of this visit: With family Medications Current Outpatient Medications Medication Sig Albuterol 108 (90 Base) MCG/ACT Aero Soln inhaler Inhale 2 puffs every 4 hours as needed for Shortness of Breath or Wheezing. Loratadine 10 MG tablet Take 1 tablet by mouth daily. LORazepam 0.5 MG tablet Take 1 tablet by mouth. Magnesium 250 MG capsule Take 250 mg by mouth daily. Multiple Vitamin (Multi-Vitamin) tablet Take 1 tablet by mouth daily. Cetirizine 10 MG tablet Take 1 tablet by mouth daily. (Patient not taking: Reported on 03/12/2025) Ibuprofen 100 MG tablet Take 1 tablet by mouth Every 6 hours as needed. (Patient not taking: Reported on 03/12/2025) Turmeric (QC TUMERIC COMPLEX PO) Take 400 mg by mouth daily. (Patient not taking: Reported on 03/12/2025) She is not on chronic immunosuppressive therapy/corticosteroids >10 days at the time of this visit She is not on chronic anticoagulation >10 days at the time of this visit Allergies/Immunizations Allergies: Sulfamethoxazole and Trimethoprim Immunizations: Immunization History Administered Date(s) Administered [id number] COVID-19 monovalent vaccine, mRNA, Pfizer, 0.3 ML 10/31/2020, 11/21/2020 Review of Systems At the time of the visit patient reports ROS per HPI. All other systems queried and are negative. OBJECTIVE: Physical Exam Blood pressure 119/67, pulse 76, temperature 98.4 F (36.9 C), temperature source Oral, resp. rate 16, height 1.688 m (5' 6.46"), weight 70.3 kg (155 lb), SpO2 97%. on RA Constitutional: she is alert, oriented, well-developed, well-nourished, and in no acute distress. HEENT: Oropharynx is clear and moist. Extraocular motions are normal. Neck: Neck supple. No tracheal deviation present. No thyromegaly present. Cardiovascular: Normal rate and regular rhythm. No murmur heard. Pulmonary/Chest: Breathing non-labored. Lung sounds normal without wheezes or rales. She exhibits no crepitus. Musculoskeletal: She exhibits no edema. Lymphadenopathy: She has no cervical adenopathy. Neurological: She is alert and oriented. Skin: No rash noted. ECO Imaging/Procedures/Results Review: Personal review completed of: CT guided biopsy 01/21/[address] 02/11/25 CT chest 01/07/25 MRI brain 02/28/25 ASSESSMENT/PLAN: Rosario Kaiser is a 49 y.o. female current smoker (smoked for about 30 years, quit cigareetes last year and now vapes daily) with a pmhx of alochol abuse, COPD, migraines who was referred for evaluation of new diagnosis of RUL SCC. Imaging and relevant data reviewed with Dr. Martinez. We agree with the plan for neoadjuvant chemo/IO given tumor size and LN involvement. We will plan for follow up after completion of neoadjuvant therapy with repeat imaging. We also discussed obtaining cardiac stress test and PFTs for preoperative workup. She would prefer to have these done locally and can be ordered by her local provider. Smoking cessation discussed. Discussed risks of continued smoking/vaping leading up to surgery including increased risk of prolonged air leak and pneumonia. The patient was seen and plan of care was discussed with Bryanna Martinez MD. Zoë Voss PA-C [1] Past Medical History: Diagnosis Date Alcohol abuse Arthritis Cervical disc disorder with radiculopathy COPD (chronic obstructive pulmonary disease) Elevated liver enzymes Herniated lumbar intervertebral disc Migraine Nipple discharge PONV (postoperative nausea and vomiting) Squamous cell carcinoma of upper lobe of right lung Stroke Uterine fibroid [2] Past Surgical History: Procedure Laterality Date INSERTION CVC TUNNELED W/ PORT PUMP Left 03/03/2025 BREAST LUMPECTOMY Right EXCISION PILONIDAL CYST HYSTERECTOMY TUBAL LIGATION Cosigned by Bryanna Martinez MD at 03/17/2025 12:14 PM EDT Associated attestation - Bryanna Martinez MD - 03/17/2025 12:14 PM EDT Thoracic Surgery Attending I saw and examined Rosario Kaiser today with my LORRIE, Zoë Voss. Rosario Kaiser is a 49 y.o. 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 I agree with the history of present illness, past medical history, family history, social history, medication list, allergies listed, and current complaints. I have personally reviewed all labs and radiographs as well as medical records and I confirm the findings noted above. I agree with the assessment and plan as noted above. The imaging reviewed today includes: CT scan for lung cancer screening on 01/07/25 that showed a 4.5cm right apex mass. CT guided biopsy on 01/21/25 positive for squamous cell carcinoma. PDL-1 TPS was 90%. PET CT SCAN on 02/11 showed a hypermetabolic right hilar lymphadenopathy with SUVmax of 14.5, and a large right upper lobe lung mass with SUVmax of 16.4. Assessment and Plan Rosario Kaiser is a 49 y.o. 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 I recommended neoadjuvant chemo-immunotherapy given the high PDL-1 expression. The patient will follow up with a repeat CT scan of the chest after completion of 3 cycles of chemo-immunotherapy to discuss lobectomy. The plan was developed mutually at the time of the clinic visit. I provided a substantive portion of the care for this patient. I personally performed all aspects of the medical decision making for this encounter. I have reviewed and verified this documentation and it accurately reflects our care. Bryanna Martinez MD documented in this encounter [facility] 03-03-2025 Radiology Diagnostic study note [facility] Imaging Services [address] [place] [address] CXR for Line Placement MR#: [id number] Acct: [id number] Name: ROSARIO KAISER Rep #: [id number] : 1975 F 49 From: Sarabjit Jennings MD PCP: Dr. Joann Live MD Status: [facility] Study:CXR for Line Placement Date of Exam: 03/03/25 Exam# [id number] Ordering Dr: Allan Meza MD PROCEDURE: CXR [...] vena cava and right atrium. Reading Location: [id number] CC: Dr. Allan Fam MD; Dr. Joann Live MD ~ [employer] Supervisor: Signed [facility] 03-03-[address] [facility] 03-03-[address] [facility] 03-03-[address] [facility] 03-03-2025 History and physi shahab note [facility] 03-03-2025 Note [facility] 03-03-[address] 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 acute February 25, 2025 9:05am Encounter for education acute A ugust 2024 2:40pm 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 acute March 04, 2025 2:40pm 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 March 04 2:40pm Chemotherapy management, encounter for acute March 24 025 7:42am Immunotherapy encounter acute S eptember 2024 7:42am 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 acute Septemb er 2024 7:42am 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 March 24 025 7:42am 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 acute Septemb er 2024 8:52am Right calf pain acute April 01, 2025 8:52am 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 April 01, 2025 8:52am Neutropenia acute March 9:13am 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 acute Septemb er 2024 9:13am Rash acute March 9:13am 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 April 07, 2025 9:13am Chemotherapy management, encounter for acute April 14, 2025 8:39am Immunotherapy encounter acute S eptember 2024 8:39am Neutropenia acute March h2024 8:39am 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 acute Septemb er 2024 8:39am 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 April 14, 2025 8:39am Chemotherapy management, encounter for acute April 21 8:08am Elevated LFTs acute April 8:08am Immunotherapy encounter acute O ctober 2024 8:08am Neutropenia acute April 21, 2025 8:08am 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 acute April 21, 2025 8:08am 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 April 21 8:08am Constipation acute April 9:43am Elevated LFTs acute April h2024 9:43am 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 acute May 01, 2025 9:43am 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 May 01 9:43am Chemotherapy management, encounter for acute May 12 7:39am Elevated LFTs acute April 7:39am Immunotherapy encounter acute O ctober 2024 7:39am 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 acute May 12, 2025 7:39am 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 May 12 7:39am [facility] Work Phone: 1(160) 812-265807-11-2025 Procedure notey [facility] Pulmonary Services/Neurology [address] [place] [address] MR#: [id number] Acct: [id number] Name: ROSARIO KAISER Rep #:[id number] : 1975 49 From: Brodie Low DO Referring Dr: Negin Acevedo CAN CRIMPER CAN CRIMPER-C Status: REG CLI Location: PSN Date: Sex: F C PSN 6 Minute Walk Test 6 Minute Walk Test 6 Minute Walk Test: 6 Minute Walk Test PSN:6-Minute Walk Test Start: 01/23/25 08:20 Freq: Status: Active Protocol: RESP.6MINW Document 01/23/25 08:05 WLB (Rec: 01/23/25 08:24 WLB [id number]) 6 Minute Walk Test Date Performed 01/23/25 Time Performed 08:05 Height 5 ft 6 in Weight: 152 lb Weight in Pounds 152.[address]: Negin Acevedo CAN CRIMPER Assistive device None used: Pre-test Oxygen Delivery [...] room air without assistive devices. Pretesting oxygen saturationwas noted to be 96% on room air. With ambulation, the wanda oxygen saturation was 94%. There was nosignificant exertional oxygendesaturation. Recommendations Recommendations: There is no indication for the use of supplemental oxygen at this time. 01/24/25 1136 O> Date _ Brodie Low DO CC: ~ Date Dictated: 01/24/251134 Date Transcribed: 01/24/251134 [employer] Supervisor: Dr. Brodie Low DO Signed [facility]07-08-2025 Radiology Diagnostic study note [facility] Imaging Services [address] [place] [id number] Chest Insp/Exp 2 View MR#: [id number] Acct: [id number] Name: ROSARIO KAISER Rep #: [id number] : 1975 F 49 From: Sarabjit Jennings MD PCP: Dr. Joann Live MD Status: REG [facility] Study:Chest Insp/Exp 2 View Date of Exam: 01/21/25 Exam# [id number] Ordering Dr: Vish Noguera i, MD EXAM: [...] radiographs. The patient is asymptomatic. Reading Location: [place] [address] CC: Dr. Vish Jennings MD; Dr. Joann Live MD ~ [employer] Supervisor: Signed [facility]07-08-2025 Radiology Diagnostic study note [facility] Imaging Services [address] [place], [place] [address] Biopsy/Inj or Needle Placement MR#: [id number] Acct: [id number] Name: ROSARIO KAISER Rep #: [id number] : 1975 F 49 From: Sarabjit Jennings MD PCP: Dr. Joann Live MD Status: REG CLI Study:Biopsy/Inj or Needle Placement Date of Exam: 01/21/25 Exam# [id number] Ordering Dr: Kiko Acevedo NP CAN CRIMPER-C EXAM: CT-guided right lung biopsy. CLINICAL HISTORY: [...] medial apical aspect of theright upper lobe. 6core biopsies of the mass were obtained. The pathologist deemed the specimen adequate. FINDINGS: Successful CT-guided core biopsy of the medial right apical mass as described. Conscious sedation was performed. No immediate complication noted. CT/Biopsy/Inj or Needle Placement IMPRESSION: Successful CT-guided core biopsy of the right apical pulmonary mass. Reading Location: [place] [address] CC: CAN CRIMPERJeanette Acevedo; Dr. Joann Live MD ~ Hotel Or Motel Cleaning Supervisor: Signed [facility]07-08-2025 Radiology Diagnostic study note [facility] Imaging Services [address] [place] [address] Chest Insp/Exp 2 View MR#: [id number] Acct: [id number] Name: ROSARIO KAISER Rep #: [id number] : 1975 F 49 From: Sarabjit Jennings MD PCP: Dr. Joann Live MD Status: REG CLI Study:Chest Insp/Exp 2 View Date of Exam: 01/21/25 Exam# [id number] Ordering Dr: Vish Noguera i, MD EXAM: [...] post right lung biopsy radiographs. Reading Location: [place] [address] CC: Dr. Vish Jennings MD; Dr. Joann Live MD ~ Hotel Or Motel Cleaning Supervisor: Signed [facility]06-25-2025 Progress [facility] Pulmonary Medicine of [address] [place] [address] OFFICE VISIT Date of Service: 01/08/25 MR#: [id number] Acct: [id number] Name: ROSARIO KAISER Rep #: [id number] : 1975 Provider: VADIM Acevedo Age/Sex: 49/F Location: [facility].PMW Status: Signed Assessment and Plan Assessment and [...] once we are able to review the resultsof the pulmonary function test. Also performing a 6-minute walk test to evaluate for exertional hypoxia. If supplemental oxygenis indicated on ambulation it will be ordered accordingly. Return to theofficein approximately 3 weeks to discuss test results. [...] oxygen will be ordered to be worn withsleep. The patient is agreeable with this plan. (4) Hypoxia: Status: Acute Plan: Evaluating for exertional hypoxia as well as nocturnal hypoxia. Supplemental oxygen will be orderedaccordingly if indicated. Orders: Orders Biopsy/Inj or Needle [...] Additional Comments: This note was generated with Creditable dictation software. It may contain incorrectwords, spelling, [...] for any breathing problems. She has a 23-hmsx-hgtp smoking history quitting completely January 2024. 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 She states this was thoroughly evaluated by [facility] without any diagnosis. She denies any fever, chills or body aches. The patient does report that over the past year she has been awakened with a headache several times. 2 times it was severe and rated a 9 out of 10. The pain was so uncomfortable that it caused her jo nauseous and even vomit. Several other times [...] air Intake Visit Reasons: LDCT- CC Patient Bunch Maker Hand Required: No DME Vendor: N/a Accompanied by: [...] 250 mg tablet 250 mg PO QDAY 01/07/2512/1625 History albuterol sulfate 90 mcg/actuation 2 inh [...] Yes conversant, Yes cooperative, Yes normal cognition, Yesnormal coordination, Yes normal concentration and Yes understands [...] in the past year?: No 01/08/25 1345 ler CAN CRIMPER CAN CRIMPER-C> Date _ Negin Acevedo CAN CRIMPER CAN CRIMPER-C Cosigner Signature: Date (if applicable) CC: VADIM Black; Dr. Joann Live MD ~ [facility]06-25-2025 Progress note Author Negin Acevedo [facility] Note Date/Time January 08, 2025 1:45 pm [facility] Pulmonary Medicine [address] [place] [address] OFFICE VISIT Date of Service: 01/08/25 MR#: [id number] Acct: [id number] Name: ROSARIO KAISER DANIEL Rep #: [id number] : 1975 Provider: VADIM Acevedo Age/Sex: 49/F Location: [facility].PMW Status: Signed Assessment and Plan Assessment and [...] Additional Comments: This note was generated with Creditable dictation software. It may contain incorrectwords, spelling, [...] for any breathing problems. She has a 22-nmiw-iysq smoking history quitting completely January 2024. 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 She denies any [...] air Intake Visit Reasons: LDCT- CC Patient Bunch Maker Hand Required: No DME Vendor: N/a Accompanied by: [...] 1345 <Electronically signed by Negin moreno NP CAN CRIMPER-C> Date _ Negin Acevedo NP CAN CRIMPER-C Cosigner Signature: Date (if applicable) CC: CAN CRIMPER-C Chayo Black; Dr. Joann Live MD ~ [facility] Work Phone: 1(592) 240-466106-24-2025 Radiology Diagnostic study note [facility] Imaging Services [address] [place] [id number] Lung Screening MR#: [id number] Acct: [id number] Name: ROSARIO KAISER Rep #: [id number] : 1975 F 49 From: Ruby Martin MD PCP: Dr. Joann Live MD Status: [facility] Study:Low Dose CT Lung Screening Date of Exam : 01/07/25 Exam# [id number] Ordering Dr: Chayo Marquez NP PROCEDURE: LOW DOSE CT LUNG SCREENING 01/07/2025 REASON FOR EXAM: LUNG CANCER SCREENING TECHNIQUE: LOW DOSE CT LUNG SCREENING Coronal and Sagittal reconstruction series were provided. One or more dose reduction techniques were used (e.g., Automated exposure control, adjustment of the mA and/or kV according to patient size, use of iterative reconstruction technique). REFERENCE LINK: [facility] Lung-RADS RADIATION DOSE SUMMARY: DLP: 59 mGycm [...] cm within the right anna. Reading Location: [id number] CC: VADIM Black; Dr. Joann Live MD ~ Hotel [employer] Motel Cleaning Supervisor: Signed 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 acute February 25, 2025 9:05am Encounter for education acute A ugust 2024 2:40pm 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 acute March 04, 2025 2:40pm 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 acute Aug ust 2024 2:40pm Chemotherapy management, encounter for acute March 24 025 7:42am Immunotherapy encounter acute S eptember 2024 7:42am 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 acute Septemb er 2024 7:42am 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 acute Sep tember 2024 7:42am [facility] Work Phone: 1(214) 144-250106-24-2025 Evaluation note* Diagnosis Onset Date Resolution Status Admit Date Encounter for screening for malignant neoplasm of lung acute January 07, 2025 12:06pm History of tobacco use acute Ju 2024 12:06pm Hypoxia acute January 08 12:35pm Mass of upper lobe of right lung acute January 08, 2025 12:35pm Morning headache acute December 12:35pm Shortness of breath acute January 08, 2025 12:35pm Shortness of breath acute January 30, 2025 9:11am 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 Jan 9:11am Headache acute February 17 9:06am 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 acute February 17, 2025 9:06am 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 Aug ust 2024 9:06am 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 Aug ust 2024 8:50am Encounter for insertion of venous access port acute February 25, 2025 9:05am 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 acute February 25, 2025 9:05am Encounter for education acute A ugust 2024 2:40pm 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 acute March 04, 2025 2:40pm 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 Aug ust 2024 2:40pm Chemotherapy management, encounter for acute March 24 7:42am Immunotherapy encounter acute S eptember 2024 7:42am 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 acute Septemb er 2024 7:42am 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 Sep tember 2024 7:42am 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 acute Septemb er 2024 8:52am 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 Sep tember 2024 8:52am [facility] Work Phone: 1(901) 924-411706-24-2025 Evaluation note* Diagnosis Onset Date Resolution Status Admit Date Encounter for screening for malignant neoplasm of lung acute January 07, 2025 12:06pm History of tobacco use acute Ju ne 2024 12:06pm Hypoxia acute January 08 12:35pm Mass of upper lobe of right lung acute January 08, 2025 12:35pm Morning headache acute December 12:35pm Shortness of breath acute January 08, 2025 12:35pm Shortness of breath acute January 30, 2025 9:11am 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 Manfred y 2024 9:11am Headache acute February 17 9:06am 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 acute February 17, 2025 9:06am 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 Aug ust 2024 9:06am 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 Aug ust 2024 8:50am Encounter for insertion of venous access port acute February 25, 2025 9:05am 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 acute February 25, 2025 9:05am Encounter for education acute A ugust 2024 2:40pm 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 acute March 04, 2025 2:40pm 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 Aug ust 2024 2:40pm Chemotherapy management, encounter for acute March 24 7:42am Immunotherapy encounter acute S eptember 2024 7:42am 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 acute Septemb er 2024 7:42am 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 Sep tember 2024 7:42am 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 acute Septemb er 2024 8:52am Right calf pain acute April 01, 2025 8:52am 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 Sep tember 2024 8:52am Neutropenia acute March 9:13am 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 acute Septemb er 2024 9:13am Rash acute March 9:13am 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 Sep tember 2024 9:13am Chemotherapy management, encounter for acute April 14, 2025 8:39am Immunotherapy encounter acute S eptember 2024 8:39am Neutropenia acute March 8:39am 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 acute Septemb er 2024 8:39am 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 Sep tember 2024 8:39am [facility] Work Phone: 1(200) 742-404206-24-2025 Evaluation note* Diagnosis Onset Date Resolution Status Admit Date Encounter for screening for malignant neoplasm of lung acute January 07, 2025 12:06pm History of tobacco use acute Ju ne 2024 12:06pm Hypoxia acute January 08 12:35pm Mass of upper lobe of right lung acute January 08, 2025 12:35pm Morning headache acute December 12:35pm Shortness of breath acute January 08, 2025 12:35pm Shortness of breath acute January 30, 2025 9:11am 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 Manfred 2024 9:11am Headache acute February 17 9:06am 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 acute February 17, 2025 9:06am 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 Aug ust 2024 9:06am 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 Feb ust 2024 8:50am Encounter for insertion of venous access port acute February 25, 2025 9:05am 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 acute February 25, 2025 9:05am Encounter for education acute A ugust 2024 2:40pm 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 acute March 04, 2025 2:40pm 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 Aug ust 2024 2:40pm Chemotherapy management, encounter for acute March 24, 025 7:42am Immunotherapy encounter acute S epteer 2024 7:42am 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 acute Septemb er 2024 7:42am 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 Sep tember 2024 7:42am 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 acute Septemb er 2024 8:52am Right calf pain acute April 01, 2025 8:52am 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 Sep tember 2024 8:52am Neutropenia acute March 9:13am 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 acute Septemb er 2024 9:13am Rash acute March 9:13am 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 Sep tember 2024 9:13am Chemotherapy management, encounter for acute April 14, 2025 8:39am Immunotherapy encounter acute S eptember 2024 8:39am Neutropenia acute March 8:39am 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 acute Septemb er 2024 8:39am 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 Sep tember 2024 8:39am Chemotherapy management, encounter for acute April 21 8:08am Elevated LFTs acute April 8:08am Immunotherapy encounter acute O ctober 2024 8:08am Neutropenia acute April 21, 2025 8:08am 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 acute April 21, 2025 8:08am 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 Oct mynor2024 8:08am [facility] [employer] Work Phone: 1(270) 686-538106-03-2025 NotePatient Outreach (INTMWS) ROSARIO KAISER ([id number]) 1975 F Date Time Provider Department 12/17/24 EDWARD MARTINEZ INTMWS During your visit today, we recorded the following information about you: Allergies As of Date: 12/17/2024 (No Known Allergies) Date Reviewed: 11/28/2022 Reviewed by: Kelly Beauchamp LPN - Fully Assessed Visit Diagnosis:Encounter for screening mammogram for breast cancer [Z12.31] Order(s):HERMILA SCREENING W SANJUANA [[id number]] Order #: [id number] FUTURE Prescriptions as of 01/17/2025 - Ibuprofen [...] 11/15/2022 Encounter Status:Closed by EPIC, PRODUSER on 01/17/25[facility] 10-22-2024 Consult note [facility] Medical Records Department [address] [place] [address] Anesthesia Postop Eval I 10/22/24922 MR#: [id number] Acct: [id number] Name: ROSARIO KAISER Rep #:[id number] : 1975 48 From: Dean Marshall PCP: Dr. Joann Live MD Status:REG [facility] Y Race: C Location: [place] [address] Anesthesia: Postop Eval I Current Vital Signs [...] Dean Shipley Signature: Date CC: ~ Signed [facility]04-08-2025 Procedure note [facility] Medical Records Department [address] [place] [address] Colonoscopy Report MR#: [id number] Acct: [id number] Name: ROSARIO KAISER Rep #:[id number] : 1975 48 From: Justus Robertson MD PCP: Dr. Joann Live MD Status:REG [facility] Patient Name: Rosario Kaiser Procedure Date: 10/22/2024 [...] present medications. Procedure Code(s): --- Professional --- 12041, Colonoscopy, flexible; diagnostic, including collection of specimen(s) by brushing or washing, when performed (separate procedure) Diagnosis Code(s): --- Professional --- Z12.11, Encounter for screening for malignant neoplasm of colon K57.30, Diverticulosis of large intestine without perforation or abscess without bleeding K64.8, Other hemorrhoids CPT copyright 2021 [employer]. All rights reserved. The codes documented in this report are preliminary and upon braille coder review may be revised to meet current compliance requirements. Justus Robertson MD 10/22/2024 9:23:43 AM This report has been signed electronically. Number of Addenda: 0 Note Initiated On: 10/22/2024 8:46 AM 10/22/24923 Date _ Justus Robertson MD Cosigner Signature: Date (if indicated) CC: Dr. Joann Live MD; Dr. Justus Robertson MD ~ Date Dictated: 10/22/24845 Date Transcribed: Hotel [employer] Motel Cleaning Supervisor: SW Signed [facility]04-08-2025 Procedure note [facility] Medical Records Department [address] [place] [address] Operative Report - CC Letter MR#: [id number] Acct: [id number] Name: ROSARIO KAISER Rep #:[id number] : 1975 48 From: Justus Robertson MD PCP: Dr. Joann Live MD Status:REG [facility] 10/22/2024 Jo[address] Live [address] [address] Re : Colonoscopy procedure for Rosario Kaiser [...] AM This report has been signed electronically. 10/22/2424 Date _ Justus Robertson MD Cosigner Signature: Date (if indicated) CC: Dr. Joann Live MD; Dr. Justus Robertson MD ~ Date Dictated: 10/22/24845 Date Transcribed: Hotel Or Motel Cleaning Supervisor: ERWIN Paige [facility]04-08-2025 Evaluation note* Diagnosis Onset Date Resolution Status Admit Date Encounter for screening for malignant neoplasm of colon acute Apri l 2024 7:08am [facility] Work Phone: 1(476) 182-318104-08-2025 Evaluation note* Diagnosis Onset Date Resolution Status Admit Date Encounter for screening for malignant neoplasm of colon acute Apri l 2024 7:08am Encounter for screening for malignant neoplasm of lung acute January 07, 2025 12:06pm History of tobacco use acute Ju 2024 12:06pm [facility] Work Phone: 1(607) 549-190804-08-2025 Evaluation note* Diagnosis Onset Date Resolution Status [...] of breath acute January 08, 2025 12:35pm [facility] Work Phone: [phone] Evaluation note* Diagnosis Onset Date Resolution Status [...] in right upper lobe acute Jan 9:11am [facility] Work Phone: [phone] Evaluation note* Diagnosis Onset Date Resolution Status [...] of bronchus in right upper lobe acute Aug us2024 9:06am [facility] Work Phone: 1(863) 175-505504-08-2025 Evaluation note* Diagnosis Onset Date Resolution Status [...] of bronchus in right upper lobe acute Aug us2024 9:06am [facility] Work Phone: 1([phone]) 754-505404-08-2025 History and physical note [facility] Medical Records Department [address] [place] [address] History & Physical Exam 10/22/2441 MR#: [id number] Acct: [id number] Name: ROSARIO KAISER Rep #:[id number] : 1975 48 From: Justus Robertson MD PCP: Dr. Joann Live MD Status:REG [facility] Location: [place] [address] HPI - General General Date of Admission: 10/22/24 Date of Service: 10/22/24 Chief Complaint: Colonoscopy HPI Narrative ROSARIO KAISER, is a 48 F who presents today for screening colonoscopy. She has had no previous colonoscopy. No GI issues or symptoms. No family history of colon polyps or colon cancers [facility] Medical History Wears glasses Wears dentures Alcohol [...] begin momentarily. Charges/Coding Visit Charges Inpatient E&M: 41858 Init Hosp L1 10/22/24 0843 Cosigner Signature (if applicable): CC: Dr. Joann Live MD; Dr. Justus Robertson MD~ Signed [facility]04[facility]08[facility] Consult note [facility] Medical Records Department [address] [place] [address] Pre-Anesthesia Evaluation 10/22/24 0800 MR#: [id number] Acct: [id number] Name: ROSARIO KAISER Rep #:[id number] : 1975 48 From: Wolfgang Roberts MD PCP: Dr. Joann Live MD Status:REG [facility] Y Race: C Location: [place] [address] ASA Classification* ASA Classification ASA Classification: 2 [...] Procedure(s): COLONOSCOPY Anesthesia History Anesthesia History - domestic violence counselor: Anesthesia History - domestic violence counselor Hx Hospitalization No 10/17/24 15:20 Any Problems [...] sips of water?: No PONV PONV - domestic violence counselor: PONV - domestic violence counselor Female Yes 10/17/24 15:20 HX of Motion [...] 10/22/24 07:31 Respiratory Assessment Respiratory Assessment - domestic violence counselor: Respiratory Tract Infection Hx - domestic violence counselor Hx Respiratory Tract Infection No 10/17/24 15:20 STOP Sleep Apnea STOP Sleep Apnea - domestic violence counselor: STOP Sleep Apnea - domestic violence counselor Hx Hypertension No 10/17/24 15:20 Hx Sleep [...] Tobacco Use History Tobacco Use History - domestic violence counselor: Tobacco Use History - domestic violence counselor Tobacco Use Smoking Status Current every day smoker 10/17/24 15:20 Hx Tobacco Use Yes: vapes 10/17/24 15:20 Years Smoking Packs Smoked per Day Smoking Cessation Date was within the last 15 years Hx Smoking Cessation Date Hx Smoking Cessation No 10/17/24 15:20 Counseling Any additional information?: Yes Tobacco Use: Vapor (Patient did vape today.) Hematologic Medial History Hematologic Hx - domestic violence counselor: Hematologic Medical Hx - tubing 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03-06-2024 Procedure [facility] 12-06-2022 History of Present illness Narrative* [...] 06, 2022 9:20 [facility] History of Present illness Narrative* Marisabel [...] 06, 2022 7:51 AM [facility] Instructions* Patient Instructions* Kandice Mario APRN.CUSHION COVER INSPECTOR - 11/15/2022 9:33 AM EDT Health Information [...] until the day before your colonoscopy. Designated Wedding Planner on the Day of Your Exam A responsible family member or friend MUST come with you to your colonoscopy and REMAIN in the endoscopy area until you are discharged! You are NOT ALLOWED to drive, take a taxi or bus, or leave the Endoscopy Center ALONE. If you do not have a responsible ups driver (family member or friend) with you [...] carbonated beverages such as elana sang or lemon-quartz valley soda; Gatorade or other sports drinks (not [...] calling after 5:00 PM, please call Nurse talent solutions manager at [phone]. [facility] [address] [address] Index # 44866 Revised 08/2016 3 Colonoscopy Procedure Overview Please [...] If the nausea persists, please contact nurse healthcare liaison at [phone]. You may experience skin irritation around the [...] performed your exam. 6 Revised 08/2016 Copyright 0971-8979 [facility]. All rights reserved. Revised 08/2016 documented [facility]23 History of Present illness Narrative* Kandice Mario [...] Patient agreeable to treatment plan. Kandice Older, RODBUSTER.CUSHION COVER INSPECTOR TR OPEN ACCESS QUESTIONNAIRE 1. Are you currently [...] Please send all open access questionnaires to [facility] [facility] Pool #[id number] documented [facility] History of Present illness Narrative* Ton Conde [...] 44 Ton Conde PT documented in this encounterCh[facility]04-[facility]23 Miscellaneous Notes* Telephone Encounter - Roya [...] transportation. Roya Cordon LPN documented in this encounterCh[facility]04-13-2023 Miscellaneous Notes* Telephone Encounter - Marine [...] back pain. Please call patient with update. [phone] Thank you. documented in this encounterChillicothe [facility]04-12-2023 Miscellaneous Notes* Letter - Mammography Coordinator - 10/26/2022 8:04 AM EDT October 26, 2022 PID: [id number] Rosario Kaiser [address] [place] [address] Dear Ms. Kaiser, Your recent breast imaging exam on 10/25/2022 showed a possible finding that requires additional imaging studies for a complete evaluation. Most such findings are probably benign (not cancer). If you have a healthcare provider who ordered/prescribed your screening mammogram: Please call [phone] or [phone] to schedule an appointment for your additional [...] and reports are kept on file at [facility] as part of your permanent medical record, and are available for your continuing care. Thank you for allowing us to help in meeting your health care needs. Sincerely, Dr. Sandoval Interpreting Radiologist [facility] (Additional imaging) documented in this encounterChillicothe Hospital04-11-2023 History of Present illness Narrative* Karine Silvestre RT(Jose) - 10/25/2022 3:00 PM EDT Radiology Service [...] 25, 2022 2:47 PM documented in this encounterChillic[facility]04-05-2023 History of Present illness Narrative* Nu Brown [...] 19, 2022 5:38 PM documented in this encounterChillic[facility]04-05-2023 Miscellaneous Notes* Result Encounter Note - Edward Martinez MD - 10/19/2022 5:40 PM EDT Result viewed. No acute disease. documented in this encounterChillicothe Hospital04-05-2023 Progress note* Result Encounter Note - Edward Martinez MD - 10/19/2022 5:40 PM EDT Result viewed. No acute disease. [facility] History of Present illness Narrative* RAHEEM Johnson - 10/18/2022 7:30 AM EDT This note was created using [employer]. Subjective Rosario Kaiser is a 46 year [...] Right 10/2016 breast abscess S BALLOON,UTERINE ABLATION 83788 2007 TUBAL LIGATION HX 1996 ALLERGIES Patient [...] ER evaluation. RAHEEM Johnson documented in this encounterChillicothe Hospital12-08-2016 History of Past illness Narrative* Problem Noted Date Resolved Date Chronic diarrhea 06/23/2016 10/19/2022 documented as of this encounter (statuses as of 10/28/2022) [place] [address]-08-2016 History of Past illness Narrative* Problem Noted Date Resolved Date Chronic diarrhea 06/23/2016 10/19/2022 documented as of this encounter (statuses as of 10/28/2022) [place] [address]-08-2016 History of Past illness Narrative* Problem Noted Date Resolved Date Chronic diarrhea 06/23/2016 10/19/2022 documented as of this encounter (statuses as of 11/07/2022) [place] [address]-08-2016 History of Past illness Narrative* Problem Noted Date Resolved Date Chronic diarrhea 06/23/2016 10/19/2022 documented as of this encounter (statuses as of 11/09/2022) [facility] of Past illness Narrative* Problem Noted Date Resolved Date Chronic diarrhea 06/23/2016 10/19/2022 documented as of this encounter (statuses as of 11/15/2022) [facility] of Past illness Narrative* Problem Noted Date Diagnosed Date Resolved Date Chronic diarrhea 06/23/2016 10/19/2022 documented as of this encounter (statuses as of 05/21/2023) [facility] of Past illness Narrative* Problem Noted Date Diagnosed Date Resolved Date Chronic diarrhea 06/23/2016 10/19/2022 documented as of this encounter (statuses as of 05/21/2023) [facility] of Past illness Narrative* Problem Noted Date Diagnosed Date Resolved Date Chronic diarrhea 06/23/2016 10/19/2022 documented as of this encounter (statuses as of 05/21/2023) [facility] Hospital[facility] Author Wolfgang Roberts [facility] Note Date/Time October 22, 2024 8:10 am [facility] Medical Records Department [address] [place] [address] Pre-Anesthesia Evaluation 10/22/24 0800 MR#: [id number] Acct: [id number] Name: ROSARIO KAISER Rep #:[id number] : 1975 48 From: Wolfgang Roberts MD PCP: Dr. Joann Live MD Status:REG [facility] Y Race: C Location: [place] [address] ASA Classification* ASA Classification ASA Classification: 2 [...] Procedure(s): COLONOSCOPY Anesthesia History Anesthesia History - domestic violence counselor: Anesthesia History - domestic violence counselor Hx Hospitalization No 10/17/24 15:20 Any Problems [...] sips of water?: No PONV PONV - domestic violence counselor: PONV - domestic violence counselor Female Yes 10/17/24 15:20 HX of Motion [...] 10/22/24 07:31 Respiratory Assessment Respiratory Assessment - domestic violence counselor: Respiratory Tract Infection Hx - domestic violence counselor Hx Respiratory Tract Infection No 10/17/24 15:20 STOP Sleep Apnea STOP Sleep Apnea - domestic violence counselor: STOP Sleep Apnea - domestic violence counselor Hx Hypertension No 10/17/24 15:20 Hx Sleep [...] Tobacco Use History Tobacco Use History - domestic violence counselor: Tobacco Use History - domestic violence counselor Tobacco Use Smoking Status Current every day smoker 10/17/24 15:20 Hx Tobacco Use Yes: vapes 10/17/24 15:20 Years Smoking Packs Smoked per Day Smoking Cessation Date was within the last 15 years Hx Smoking Cessation Date Hx Smoking Cessation No 10/17/24 15:20 Counseling Any additional information?: Yes Tobacco Use: Vapor (Patient did vape today.) Hematologic Medial History Hematologic Hx - domestic violence counselor: Hematologic Medical Hx - tubing machine tender Hx of Blood Transfusion No 10/17/24 15:20 [...] confused, unrespo /Reproduction History /Reproductive History - domestic violence counselor: /Reproductive Hx- domestic violence counselor Hx Now No 10/17/24 15:20 Gestational Age [...] MD Cosigner Signature: Date CC: ~ Signed [facility] Work Phone: Consult note Author Dean Marshall [facility] Note Date/Time October 22, 2024 9:24 am [facility] Medical Records Department [address] [place] [address] Anesthesia Postop Eval I 10/22/24922 MR#: [id number] Acct: [id number] Name: EDMUNDOROSARIO Rep #:[id number] : 1975 48 From: Dean Marshall PCP: Dr. Joann Live MD Status:REG SDC Y Race: C Location: [place] [address] Anesthesia: Postop Eval I Current Vital Signs [...] Marshall Cosigner Signature: Date CC: ~ Signed [facility] Work Phone: Consult note Author Wolfgang Roberts [facility] Note Date/Time March 03, 2025 11 :38am [facility] Medical Records Department [address] [place] [address] Pre-Anesthesia Evaluation 03/03/25 1127 MR#: [id number] Acct: [id number] Name: ROSARIO KAISER Rep #:[id number] : 1975 49 From: Wolfgang Roberts MD PCP: Dr. Joann Live MD Status:REG SD Y Race: C Location: [place] [address] ASA Classification* ASA Classification ASA Classification: 3 [...] poss left Anesthesia History Anesthesia History - domestic violence counselor: Anesthesia History - domestic violence counselor Hx Hospitalization No 02/21/25 10:19 Any Problems [...] take am of surgery PONV PONV - domestic violence counselor: PONV - domestic violence counselor Female Yes 02/21/25 10:19 HX of Motion [...] 03/03/25 11:15 Respiratory Assessment Respiratory Assessment - domestic violence counselor: Respiratory Tract Infection Hx - domestic violence counselor Hx Respiratory Tract Infection No 02/21/25 10:19 STOP Sleep Apnea STOP Sleep Apnea - domestic violence counselor: STOP Sleep Apnea - domestic violence counselor Hx Hypertension No 02/21/25 10:19 Hx Sleep [...] Tobacco Use History Tobacco Use History - domestic violence counselor: Tobacco Use History - domestic violence counselor Tobacco Use Vapor 10/22/24 08:04 Smoking Status Current every day smoker 02/21/25 10:19 Hx Tobacco Use Yes 02/21/25 10:19 Years Smoking Packs Smoked per Day Smoking Cessation Date was within the last 15 years Hx Smoking Cessation Date Hx Smoking Cessation No 02/21/25 10:19 Counseling Any additional information?: Yes Tobacco Use: Vapor (Patient vaped today.) Hematologic Medial History Hematologic Hx - domestic violence counselor: Hematologic Medical Hx - tubing machine tender Hx of Blood Transfusion No 02/21/25 10:19 [...] confused, unrespo /Reproduction History /Reproductive History - domestic violence counselor: /Reproductive Hx- domestic violence counselor Hx Now No 02/21/25 10:19 Gestational Age [...] no additional complaints, except as documented. 03/03/25 0752 <Electronically signed by Wolfgang verdin MD> Date _ Wolfgangpastor Shipley Signature: Date CC: ~ Signed [facility] Work Phone: Consult note Author John Mcconnell [facility] Note Date/Time March 03, 2025 12 :41pm [facility] Medical Records Department [address] [place] [address] Anesthesia Postop Eval I 03/03/25 1240 MR#: [id number] Acct: [id number] Name: ROSARIO KAISER Rep #:[id number] : 1975 49 From: John Mcconnell CRNA PCP: Dr. Joann Live MD Status:REG [facility] [place] [facility] Y Race: C Location: [place] [address] Anesthesia: Postop Eval I Current Vital Signs [...] by John mitchell CRNA> Date _ John Shipley Signature: Date CC: ~ Signed [facility] Work Phone: Discharge summary Author Allan Fam [facility] Note Date/Time March 03, 2025 12 :38pm [facility] Medical Records Department [address] [place] [address] Instructions for Home/Discharge Instructions 03/03/25 1237 MR#: [id number] Acct: [id number] Name: ROSARIO KAISER Rep #:[id number] : 1975 49 From: Allan monk MD [...] With: Allan Fam MD When: as needed [phone] Test Results: Test results from this visit will be discussed in further detail at your follow- up appointment, if applicable. Discharge Plan Admission Attending Provider: Allan Fam Primary Care Provider: Joann Live Instructions Print Language: Paraguayan Discharge Orders/Prescriptions Prescriptions: No Action ibuprofen 200 [...] CC: Dr. Joann Live MD ~ Signed 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 [facility]* Diagnosis Abnormal screening mammogram- Primary Abnormal mammogram, unspecified documented in this encounter [facility] note* Diagnosis Acute back pain with sciatica, right- Primary documented in this encounter [facility] note* Diagnosis Skin lesion of left leg- Primary Unspecified disorder of skin and subcutaneous tissue Acute back pain with sciatica, right Elevated liver enzymes Other nonspecific abnormal serum enzyme levels Special screening for malignant neoplasms, colon Encounter for immunization Need for other specified prophylactic vaccination against single bacterial disease documented in this encounter [facility] note* Diagnosis Abnormal screening mammogram Abnormal mammogram, unspecified documented in this encounter [facility] note* Diagnosis Screening mammogram for breast cancer documented in this encounter [facility] note* Diagnosis Abnormal screening mammogram Abnormal mammogram, unspecified documented in this encounter [facility] noteNo assessment information availableWMagruder Hospital Work Phone: Evaluation note* Diagnosis Encounter for screening mammogram for breast cancer documented in this encounter [facility] note* Diagnosis Acute bilateral low back pain with right-sided sciatica documented in this encounter [facility] note* Diagnosis Encounter for screening mammogram for breast cancer documented in this encounter [facility] note* Diagnosis History of lung cancer- Primary Personal history of malignant neoplasm of bronchus and lung [facility] Squamous cell lung cancer, right- Primary Preoperative evaluation to rule out surgical contraindication Other specified pre-operative examination Shortness of breath [facility] Author Justus Robertson [facility] Note Date/Time October 22, 2024 8:43 am [facility] Medical Records Department [address] [place] [address] History & Physical Exam 10/22/24 0841 MR#: [id number] Acct: [id number] Name: ROSARIO KAISER Rep #:[id number] : 1975 48 From: Justus Robertson MD PCP: Dr. Joann Live MD Status:[facility] Location: [place] [address] HPI - General General Date of Admission: 10/22/24 Date of Service: 10/22/24 Chief Complaint: Colonoscopy HPI Narrative ROSARIO KAISER, is a 48 F who presents today for screening colonoscopy. She has had no previous colonoscopy. No GI issues or symptoms. No family history of colon polyps or colon cancers [facility] Medical History Wears glasses Wears dentures Alcohol [...] begin momentarily. Charges/Coding Visit Charges Inpatient E&M: 91725 Init Hosp L1 10/22/24 0843 <Electronically signed by Justus Robertson MD> Cosigner Signature (if applicable): CC: Dr. Joann Live MD; Dr. Justus Robertson MD~ Signed [facility] Work Phone: History and physical note Author Allan Fam [facility] Note Date/Time March 03, 2025 11 :42am [facility] Medical Records Department [address] [place] [address] History & Physical Exam 03/03/25 1142 MR#: [id number] Acct: [id number] Name: ROSARIO KAISER Rep #:[id number] : 1975 49 From: Allan monk MD PCP: Dr. Joann Live MD Status:[facility] Location: [place] [address] History and Physical Date of Admission: 03/03/25 [...] hold her turmeric. Allan Fam MD Pager: [facility] [address] [place] [address], [address] [place] [address] Office: I have examined the patient and the H&P has been reviewed. There are no clinicalchanges since date of exam. 03/03/25 1142 <Electronically signed by Allan Fam MD> Cosigner Signature (if applicable): CC: Dr. Allan Fam MD; Dr. Joann Live MD~ Signed [facility] Work Phone: Hospital Discharge instructionsAmbulatory Orders* Fast Pass: Oncology Referral [facility] Location: None Selected [facility] Work Phone: Hospital Discharge instructionsAmbulatory Orders* Prior Authorization Referral - ONC/HEM Location: None Selected [facility] Work Phone: Instructions* Attachments The following attachments cannot be sent through Care Everywhere. * PFTs (Pulmonary Function Tests) (Paraguayan) [facility] Author Chayo Black [facility] Note Date/Time April 07, 2025 10:52am [facility] [place] [id number] OFFICE VISIT Date of Service: 04/07/25 0938 MR#: [id number] Acct: [id number] Name: ROSARIO KAISER Rep #: [id number] : 1975 From: Chayo Hi ch CAN CRIMPER CAN CRIMPER-C Age/Sex: 49/F Location: [facility] Status: Signed HPI Subjective Date of Service 04/07/25 Chief Complaint NCLSC on treatment History of Present Illness 49-year-old woman underwent lung cancer screening on 01/07/2025. Low-dose CT showed 4.5 cm right apex mass. She had a CT-guided biopsy on 01/21/2025, pathology showed squamous cell carcinoma. February 11, 2025 PET/CT showed the previously noted right hilar mass with hypermetabolic activity, with SUV max of 14.5, large right upper lobe previouslynoted mass shows hypermetabolic activity, with SUV max of 16.4, stable pulmonaryemphysematous changes and no significant hilar or mediastinal adenopathy or pleural abnormalities. February 28, 2025 MRI Brain WWO showed no evidence of acute intracranial pathology, small chronic lacunar infarctions in both basal ganglia. PD-L1 was 90%. Neoadjuvant Chemotherapy and Immunotherapy was suggested by Thoracic surgeon, Dr. Godfrey. March 242024 Began neoadjuvant carboplatin, paclitaxel, durvalumuab Interval History The patient is presenting to clinic for a planned toxicity assessment, today is day 15 of cycle 1. Appetite "too good". Reports pruritic, erythematous rash involving chest, neck, scalp and bilat upperarms. Lasted 2 days, slowly dissipated without intervention. No loose stools last week, alternatively went 3 days without. Constipation resolved with one dose of Miralax 2 days ago. LBM this morning, soft and formed. Estimates PO fluid intake 60 oz with liquid IV packet every other day. Denies fever/chills, sweats, dizziness, headache, CP, palpitations, hemoptysis. No change in exertional dyspnea. Right sided CP and right axilla and right posterior shoulder pain improved, 4/10. Reports she is using otc TCH gummies. No Tylenol and IBU. [facility] Medical History (Updated 04/07/25 @ 10:59 by Chayo Black NP, CAN CRIMPER-C) Neutropenia Rash At high risk for deep venous thrombosis Right calf pain Encounter for education Cancer Depression Anxiety Marijuana use History of [...] substance use type: does not use ROS ROS Narrative Negative except as documented in the interval HPI Intake Vital Signs 03/24/25 08:27 04/07/25 09:40 04/07/25 09:43 Height 5 ft 6 in 5 ft 6 in 5 ft 6 in Weight: 153 lb 6 oz BMI 24.7 BP 124/84 H Blood Pressure Location Lt brachial Position Sitting Respiration 18 Pulse 72 Pulse Source Monitor Temp 97.5 F L Temperature Source Temporal Artery Pulse Oximetry (%) 97 Oxygen Delivery Method room air Intake Is patient in pain?: Yes (chronic pain ) Allergies sulfamethoxazole (From Bactrim) Adverse Reaction (Verified 04/07/25 09:42) Nausea/Vom/Diarrhea trimethoprim (From Bactrim) Adverse Reaction (Verified 04/07/25 09:42) Nausea/Vom/Diarrhea Medications ?Medication ?Instructions ?Recorded ?Confirmed ?Type diclofenac sodium 1 % topical gel 2 g topical .qid PRN pain 08/15/24 04/07/25 History albuterol sulfate 90 mcg/actuation 2 inh inhalation Q4 H PRN shortness 01/08/25 04/07/25 Rx aerosol inhaler (Ventolin HFA) of breath or wheezing # 18 grams dexamethasone 4 mg tablet 8 mg (2 x 4 mg) PO .COMPLEX #16 03/18/25 04/07/25 Rx tabs lidocaine-prilocaine 2.5 %-2.5 % 1 applic topical ONCE PRN port 03/18/25 04/07/25 Rx topical cream access 30 days #30 grams ondansetron 8 mg disintegrating 8 mg PO Q8H PRN nausea and 03/18/25 04/07/25 Rx tablet vomiting #30 tabs prochlorperazine maleate 10 mg 10 mg PO Q6H PRN nausea and 03/18/25 04/07/25 Rx tablet vomiting #30 tabs Central Venous Access Central Venous Access: Yes Port/PICC: Port Laboratory Tests 04/07/25 09:26 WBC 3.2 L Hgb 11.4 L Hct 34.0 L Plt Count 165 Absolute Neuts (auto) 0.9 L Sodium 140 Potassium 3.8 Chloride 104 Carbon Dioxide 25.0 BUN 11 Creatinine 0.53 L Glucose 100 H Calcium 9.4 Iron 128 TIBC 243 L Iron Saturation 52.7 Unsaturated IBC 115 L Ferritin 896 H Total Bilirubin 0.21 AST 55 H ALT 123 H Alkaline Phosphatase 128 H Albumin 4.4 Exam Physical Exam Const alert, oriented x3 and no apparent distress HEENT normocephalic Eyes conjunctivae normal and no scleral icterus Neck no lymphadenopathy Lymph Lymphatic: no lymphadenopathy noted Chest Chest Narrative: Port R IC area Resp normal respiratory effort and clear to auscultation bilaterally Cardio regular rate, regular rhythm, S1 normal heart sound, S2 normal heart sound and no murmurs GI soft to palpation and non-tender Back/Spine thoracic and lumbar spine normal to inspection Extremity no clubbing, cyanosis or edema Skin no rashes or lesions noted Neuro oriented x3, CN's II-XII intact bilaterally and moves all extremities Psych mental status grossly normal Mood & Affect: anxious Coding Level of Care Code Off vis,est,level 4 Exam Problem Focused Diagnoses 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 C34.11 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 Stage IIB(cT2b cN1 cM0). PD-L1 positive. Seen by Thoracic surgery, Neoadjuvant therapy with Chemotherapy and Immunotherapy was suggested. Plan: Labs are reviewed with the patient, no evidence of dehydration or electrolyte abnormalities. LFTs are elevated, counseled to avoid ETOH and acetaminophen. Continue to monitor. 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 Involves upper chest upper back neck lasted days 2 through 4 of previous cycle. Counseled she may use p.o. diphenhydramine And hydrocortisone cream if were to recur with future cycles. (4) Neutropenia: Status: Acute Orders: Referrals Prior Authorization Referral - ONC/HEM D70.9 - Neutropenia, unspecified Plan Request insurance authorization for primary prophylaxis with pegfilgrastim with future cycles. 04/07/25 1102 <Electronically signed by Chayo mackenzie NP, NP-C> Date _ Chayo Black NP CAN CRIMPER-C Cosigner Signature: Date (if applicable) CC: Dr. Joann Live MD ~ [facility] Work Phone: Progress note Author Ottoniel Cabrera [facility] Note Date/Time April 14, 2025 10:56am [facility] [address] [address] OFFICE VISIT Date of Service: 04/14/25 0946 MR#: [id number] Acct: [id number] Name: EDMUNDOROSARIO Rep #: [id number] : 1975 From: Ottoniel Cabrera MD Age/Sex: 49/F Location: [facility] Status: Signed HPI Subjective Date of Service 04/14/25 Chief Complaint NCLSC on treatment History of Present Illness 49-year-old woman underwent lung cancer screening on 01/07/2025. Low-dose CT showed 4.5 cm right apex mass. She had a CT-guided biopsy on 01/21/2025, pathology showed squamous cell carcinoma. February 11, 2025 PET/CT showed the previously noted right hilar mass with hypermetabolic activity, with SUV max of 14.5, large right upper lobe previouslynoted mass shows hypermetabolic activity, with SUV max of 16.4, stable pulmonaryemphysematous changes and no significant hilar or mediastinal adenopathy or pleural abnormalities. February 28, 2025 MRI Brain WWO showed no evidence of acute intracranial pathology, small chronic lacunar infarctions in both basal ganglia. PD-L1 was 90%. Neoadjuvant Chemotherapy and Immunotherapy was suggested by Thoracic surgeon, Dr. Godfrey. March 242024 Began neoadjuvant carboplatin, paclitaxel, durvalumuab. Comes for C2. Feels well. PFSH Medical History Neutropenia Rash At high risk for deep venous thrombosis Right calf pain Encounter for education Cancer Depression Anxiety Marijuana use History of [...] no addt'l complaints, except as documented Hematologic/Lymphatic Hematologic/Lymphatic: Reports systems reviewed and no addt'l complaints, exceptas documented Allergic/Immunologic Allergic/Immunologic: Reports systems reviewed and no addt'l complaints, except as documented Intake Vital Signs 03/24/25 08:27 04/14/25 09:47 Height 5 ft 6 in 5 ft 6 in Weight: 70.392 kg BMI 25.0 BP 118/79 Blood Pressure Location Lt brachial Position Sitting Respiration 18 Pulse 60 Pulse Source Monitor Temp 97.8 F Temperature Source Temporal Artery Pulse Oximetry (%) 100 Oxygen Delivery Method room air Intake Accompanied by: Self Is patient in pain?: Yes (chronic pain) Pain scale (1-10): 4 Allergies sulfamethoxazole (From Bactrim) Adverse Reaction (Verified 04/14/25 10:03) Nausea/Vom/Diarrhea trimethoprim (From Bactrim) Adverse Reaction (Verified 04/14/25 10:03) Nausea/Vom/Diarrhea Medications ?Medication ?Instructions ?Recorded ?Confirmed ?Type diclofenac sodium 1 % topical gel 2 g topical .qid PRN pain 08/15/24 04/14/25 History albuterol sulfate 90 mcg/actuation 2 inh inhalation Q4 H PRN shortness 01/08/25 04/14/25 Rx aerosol inhaler (Ventolin HFA) of breath or wheezing # 18 grams dexamethasone 4 mg tablet 8 mg (2 x 4 mg) PO .COMPLEX #16 03/18/25 04/14/25 Rx tabs lidocaine-prilocaine 2.5 %-2.5 % 1 applic topical ONCE PRN port 03/18/25 04/14/25 Rx topical cream access 30 days #30 grams ondansetron 8 mg disintegrating 8 mg PO Q8H PRN nausea and 03/18/25 04/14/25 Rx tablet vomiting #30 tabs prochlorperazine maleate 10 mg 10 mg PO Q6H PRN nausea and 03/18/25 04/14/25 Rx tablet vomiting #30 tabs Central Venous Access Central Venous Access: Yes Port/PICC: Port Laboratory Tests 04/14/25 08:55 WBC 3.5 L Hgb 11.9 L Hct 35.6 L Plt Count 163 Absolute Neuts (auto) 1.2 L Sodium 143 Potassium 3.8 Chloride 106 BUN 13 Creatinine 0.52 L Glucose 110 H Calcium 9.4 Total Bilirubin 0.24 AST 90 H ALT 223 H Alkaline Phosphatase 121 H Total Protein 7.0 Albumin 4.3 Globulin 2.7 TSH 1.580 Free T4 0.90 Exam Physical Exam Const alert, oriented x3 and no apparent distress HEENT normocephalic, external ears normal and external nose normal Eyes conjunctivae normal and no scleral icterus Neck no lymphadenopathy Lymph Lymphatic: no lymphadenopathy noted Chest Chest Narrative: Port R IC area Resp normal respiratory effort and clear to auscultation bilaterally Cardio regular rate, regular rhythm, S1 normal heart sound, S2 normal heart sound and no murmurs GI soft to palpation and non-tender Back/Spine thoracic and lumbar spine normal to inspection Extremity no clubbing, cyanosis or edema Skin no rashes or lesions noted Neuro oriented x3, CN's II-XII intact bilaterally and moves all extremities Psych mental status grossly normal Coding Level of Care Code Off vis,est,level 5 Exam Problem Focused Diagnoses 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 C34.11 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 C34.90; C77.1 Chemotherapy-induced neutropenia D70.1; T45.1X5A Neutropenia type: secondary to cancer chemotherapy Immunotherapy encounter Z29.89 Chemotherapy management, encounter for Z51.11 Assessment and Plan Assessment and Plan (1) 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 Stage IIB(cT2b cN1 cM0). PD-L1 positive. Started Neoadjuvant therapy with Chemotherapy and Immunotherapy- Carboplatin/Taxol and Imfinzi on 03/24/2025. Comes for C2. ALT and AST are elevated >1-3 times normal. ANC 1.2. 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 (3) Neutropenia: Status: Acute Qualifiers: Neutropenia type: secondary to cancer chemotherapy Qualified Code(s): D70.1 - Agranulocytosis secondary to cancer chemotherapy; T45.1X5A - Adverse effect of antineoplastic and immunosuppressive drugs, initial encounter Comment: ANC 1.2 Plan: To hold chemotherapy. (4) Immunotherapy encounter: Status: Acute Comment: Abnormal Liver enzymes. Plan: To hold Imfinzi. (5) Chemotherapy management, encounter for: Status: Acute Comment: ANC 1.2 today. Plan: To hold chemotherapy Plan Request insurance authorization for primary prophylaxis with pegfilgrastim with future cycles. Plan Details Follow Up: 1 Week 04/14/25 1056 <Electronically signed by Ottoniel Velez> Date _ Ottoniel Cabrera MD Cosigner Signature: Date (if applicable) CC: Dr. Joann Live MD ~ [facility] Work Phone: Progress note Author Chayo Black [facility] Note Date/Time April 21, 2025 9: 50am [facility] [address] [address] OFFICE VISIT Date of Service: 04/21/25 0845 MR#: [id number] Acct: [id number] Name: EDMUNDOROSARIO Rep #: [id number] : 1975 From: Chayo Hi ch CAN CRIMPER CAN CRIMPER-C Age/Sex: 49/F Location: [facility] Status: Signed HPI Subjective Date of Service 04/21/25 Chief Complaint NCLSC on treatment History of Present Illness 49-year-old woman underwent lung cancer screening on 01/07/2025. Low-dose CT showed 4.5 cm right apex mass. She had a CT-guided biopsy on 01/21/2025, pathology showed squamous cell carcinoma. February 11, 2025 PET/CT showed the previously noted right hilar mass with hypermetabolic activity, with SUV max of 14.5, large right upper lobe previouslynoted mass shows hypermetabolic activity, with SUV max of 16.4, stable pulmonaryemphysematous changes and no significant hilar or mediastinal adenopathy or pleural abnormalities. February 28, 2025 MRI Brain WWO showed no evidence of acute intracranial pathology, small chronic lacunar infarctions in both basal ganglia. PD-L1 was 90%. Neoadjuvant Chemotherapy and Immunotherapy was suggested by Thoracic surgeon, Dr. Godfrey. March 24, 2025 Began neoadjuvant carboplatin, paclitaxel, durvalumuab. Interval History The patient is presenting to clinic for an evaluation anticipating she will receive cycle 2 carbo/taxol/durva. Reports RUQ pain ongoing x 2 weeks, intermittently. Worsens with activity (right handed) such as vacuuming and walking large dog. Is not taking any analgesia. [facility] Medical History Neutropenia Rash At high risk for deep venous thrombosis Right calf pain Encounter for education Cancer Depression Anxiety Marijuana use History of [...] substance use type: does not use ROS ROS Narrative Negative except as documented in the interval HPI Intake Vital Signs 04/14/25 09:47 04/21/25 08:47 04/21/25 08:51 Height 5 ft 6 in 5 ft 6 in 5 ft 6 in Weight: 153 lb 9 oz BMI 24.7 BP 127/81 H Blood Pressure Location Lt brachial Position Sitting Respiration 18 Pulse 67 Pulse Source Monitor Temp 97.9 F Temperature Source Temporal Artery Pulse Oximetry (%) 98 Oxygen Delivery Method room air Intake Is patient in pain?: Yes (right breast, shoulder, and arm ) Pain scale (1-10): 4 Allergies sulfamethoxazole (From Bactrim) Adverse Reaction (Verified 04/21/25 08:50) Nausea/Vom/Diarrhea trimethoprim (From Bactrim) Adverse Reaction (Verified 04/21/25 08:50) Nausea/Vom/Diarrhea Medications ?Medication ?Instructions ?Recorded ?Confirmed ?Type diclofenac sodium 1 % topical gel 2 g topical .qid PRN pain 08/15/24 04/21/25 History albuterol sulfate 90 mcg/actuation 2 inh inhalation Q4 H PRN shortness 01/08/25 04/21/25 Rx aerosol inhaler (Ventolin HFA) of breath or wheezing # 18 grams dexamethasone 4 mg tablet 8 mg (2 x 4 mg) PO .COMPLEX #16 03/18/25 04/21/25 Rx tabs lidocaine-prilocaine 2.5 %-2.5 % 1 applic topical ONCE PRN port 03/18/25 04/21/25 Rx topical cream access 30 days #30 grams ondansetron 8 mg disintegrating 8 mg PO Q8H PRN nausea and 03/18/25 04/21/25 Rx tablet vomiting #30 tabs prochlorperazine maleate 10 mg 10 mg PO Q6H PRN nausea and 03/18/25 04/21/25 Rx tablet vomiting #30 tabs Have you fallen in the past year?: No Central Venous Access Central Venous Access: Yes Port/PICC: Port Laboratory Tests 04/21/25 08:22 WBC 4.3 L Hgb 11.7 L Hct 35.0 L Plt Count 181 Absolute Neuts (auto) 1.9 L Sodium 143 Potassium 4.1 Chloride 106 Carbon Dioxide 23.0 BUN 12 Creatinine 0.59 L Glucose 122 H Calcium 9.5 Total Bilirubin 0.24 AST 43 H ALT 109 H Alkaline Phosphatase 110 H Albumin 4.3 TSH 1.910 Free T4 1.10 Cortisol AM Sample 13.80 Exam Physical Exam Const alert, oriented x3 and no apparent distress HEENT normocephalic, external ears normal and external nose normal Eyes conjunctivae normal and no scleral icterus Neck no lymphadenopathy Lymph Lymphatic: no lymphadenopathy noted Chest Chest Narrative: Port R IC area Resp normal respiratory effort and clear to auscultation bilaterally Cardio regular rate, regular rhythm, S1 normal heart sound, S2 normal heart sound and no murmurs GI soft to palpation and non-tender Back/Spine thoracic and lumbar spine normal to inspection Extremity no clubbing, cyanosis or edema Skin no rashes or lesions noted Neuro oriented x3, CN's II-XII intact bilaterally and moves all extremities Psych mental status grossly normal Coding Level of Care Code Off vis,est,level 4 Exam Problem Focused Diagnoses 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 C34.11 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 C34.90; C77.1 Chemotherapy-induced neutropenia D70.1; T45.1X5A Neutropenia type: secondary to cancer chemotherapy Elevated LFTs R79.89 Immunotherapy encounter Z29.89 Chemotherapy management, encounter for Z51.11 Assessment and Plan Assessment and Plan (1) 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 Stage IIB(cT2b cN1 cM0). PD-L1 positive. Started Neoadjuvant therapy with Chemotherapy and Immunotherapy- Carboplatin/Taxol and Imfinzi on 03/24/2025. 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 Patient to be supported with G-CSF on day 2 tomorrow and with future cycles. (4) Elevated LFTs: Status: Acute Plan: Predated chemotherapy and immunotherapy exposure. Today LFTs remain elevated although improved to near baseline values. Request right upper quad ultrasound. (5) Immunotherapy encounter: Status: Acute Comment: Abnormal Liver enzymes. (6) Chemotherapy management, encounter for: Status: Acute Orders: Orders Abdomen Limited Today R10.11 - Right upper quadrant pain, R79.89 - Other specified abnormal findings of blood chemistry CBC W/Diff, Automated 10 Days C34.11 - Malignant neoplasm of upper lobe, right bronchus or lung, C34.90 - Malignant neoplasm of unspecified part of unspecifiedbronchus or lung, C77.1 - Secondary and unspecified malignant neoplasm of intrathoracic lymph nodes Comprehensive Metabolic Profil 10 Days C34.11 - Malignant neoplasm of upper lobe, right bronchus or lung, C34.90 - Malignant neoplasm of unspecified part of unspecified bronchus or lung, C77.1 - Secondary and unspecified malignant neoplasm of intrathoracic lymph nodes Magnesium 10 Days C34.11 - Malignant neoplasm of upper lobe, right bronchus or lung, C34.90 - Malignant neoplasm of unspecified part of unspecified bronchus orlung, C77.1 - Secondary and unspecified malignant neoplasm of intrathoracic lymph nodes Clinical Quality Measures Falls Risk Screening/Assistive Devices Have you fallen in the past year?: No 04/21/25 1029 <Electronically signed by Chayo FIERRO> Date _ Chayo FIERRO Cosigner Signature: Date (if applicable) CC: ~ [facility] Work Phone: Progress note Author Chayo Black [facility] Note Date/Time May 01, 2025 1 1:19am [facility] [address] [address] OFFICE VISIT Date of Service: 05/01/25 1028 MR#: [id number] Acct: [id number] Name: EDMUNDOJOSE E BOWDENRA SANCHEZ Rep #: [id number] : 1975 From: Chayo FIERRO Age/Sex: 49/F Location: [facility] Status: Signed HPI Subjective Date of Service 05/01/25 Chief Complaint NCLSC on treatment History of Present Illness 49-year-old woman underwent lung cancer screening on 01/07/2025. Low-dose CT showed 4.5 cm right apex mass. She had a CT-guided biopsy on 01/21/2025, pathology showed squamous cell carcinoma. February 11, 2025 PET/CT showed the previously noted right hilar mass with hypermetabolic activity, with SUV max of 14.5, large right upper lobe previouslynoted mass shows hypermetabolic activity, with SUV max of 16.4, stable pulmonaryemphysematous changes and no significant hilar or mediastinal adenopathy or pleural abnormalities. February 28, 2025 MRI Brain WWO showed no evidence of acute intracranial pathology, small chronic lacunar infarctions in both basal ganglia. PD-L1 was 90%. Neoadjuvant Chemotherapy and Immunotherapy was suggested by Thoracic surgeon, Dr. Godfrey. March 24, 2025 Began neoadjuvant carboplatin, paclitaxel, durvalumuab. Interval History The patient is presenting to clinic for a planned toxicity assessment, she begancycle 2 carbo/taxol/durva on 04/21/25. + constipation LBM earlier this morning. Using Miralax. + Nausea. Only required one dose of ondansetron on day 4. No emesis. Appetitefair, PO fluid intake 4 liters/day. + numbness/tingling limited to right thumb. [facility] Medical History (Updated 05/05/25 @ 09:50 by Chayo Black CAN CRIMPER, CAN CRIMPER-C) Constipation RUQ pain Elevated LFTs Neutropenia Rash At high risk for deep venous thrombosis Right calf pain Encounter for education Cancer Depression Anxiety Marijuana use History of [...] substance use type: does not use ROS ROS Narrative Negative except as documented in the interval HPI Intake Vital Signs 04/21/25 08:51 05/01/25 10:29 05/01/25 10:35 Height 5 ft 6 in 5 ft 6 in 5 ft 6 in Weight: 155 lb BMI 25.0 BP 132/86 H Blood Pressure Location Lt brachial Position Sitting Respiration 18 Pulse 68 Pulse Source Monitor Temp 97.5 F L Temperature Source Temporal Artery Pulse Oximetry (%) 98 Oxygen Delivery Method room air Intake Is patient in pain?: Yes (right side pain ) Allergies sulfamethoxazole (From Bactrim) Adverse Reaction (Verified 05/01/25 10:35) Nausea/Vom/Diarrhea trimethoprim (From Bactrim) Adverse Reaction (Verified 05/01/25 10:35) Nausea/Vom/Diarrhea Medications ?Medication ?Instructions ?Recorded ?Confirmed ?Type diclofenac sodium 1 % topical gel 2 g topical .qid PRN pain 08/15/24 05/01/25 History albuterol sulfate 90 mcg/actuation 2 inh inhalation Q4 H PRN shortness 01/08/25 05/01/25 Rx aerosol inhaler (Ventolin HFA) of breath or wheezing # 18 grams dexamethasone 4 mg tablet 8 mg (2 x 4 mg) PO .COMPLEX #16 03/18/25 05/01/25 Rx tabs lidocaine-prilocaine 2.5 %-2.5 % 1 applic topical ONCE PRN port 03/18/25 05/01/25 Rx topical cream access 30 days #30 grams ondansetron 8 mg disintegrating 8 mg PO Q8H PRN nausea and 03/18/25 05/01/25 Rx tablet vomiting #30 tabs prochlorperazine maleate 10 mg 10 mg PO Q6H PRN nausea and 03/18/25 05/01/25 Rx tablet vomiting #30 tabs Have you fallen in the past year?: No Central Venous Access Central Venous Access: Yes Port/PICC: Port Laboratory Tests 05/01/25 09:54 WBC 9.2 Hgb 11.2 L Hct 33.7 L Plt Count 161 Absolute Neuts (auto) 5.6 Sodium 142 Potassium 3.5 Chloride 105 Carbon Dioxide 26.5 BUN 10 Creatinine 0.51 L Glucose 104 H Calcium 9.6 Magnesium 1.9 Total Bilirubin 0.18 AST 98 H ALT 357 H Alkaline Phosphatase 186 H Albumin 4.3 Exam Physical Exam Const alert, oriented x3 and no apparent distress HEENT normocephalic Eyes conjunctivae normal and no scleral icterus Neck no lymphadenopathy Lymph Lymphatic: no lymphadenopathy noted Chest Chest Narrative: Port R IC area Resp normal respiratory effort and clear to auscultation bilaterally Cardio regular rate, regular rhythm, S1 normal heart sound and S2 normal heart sound GI soft to palpation and non-tender Back/Spine thoracic and lumbar spine normal to inspection Extremity no clubbing, cyanosis or edema Skin no rashes or lesions noted Neuro oriented x3, CN's II-XII intact bilaterally and moves all extremities Psych mental status grossly normal Coding Level of Care Code Off vis,est,level 4 Exam Problem Focused Diagnoses 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 Stage IIB(cT2b cN1 cM0). PD-L1 positive. Started Neoadjuvant therapy with Chemotherapy and Immunotherapy- Carboplatin/Taxol and Imfinzi on 03/24/2025. 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 Today LFTs remain elevated, continue to monitor. Right upper quad ultrasound showed no acute abnormalities in the liver (4) Constipation: Status: Acute Qualifiers: Constipation type: drug induced constipation Qualified Code(s): K59.03 - Drug induced constipation Plan: Start senna 8.6 mg/colace 50 mg daily. Clinical Quality Measures Falls Risk Screening/Assistive Devices Have you fallen in the past year?: No 05/05/25 0951 <Electronically signed by Chayo mackenzie NP CAN CRIMPER-C> Date _ Chayo MCCRACKENC Cosigner Signature: Date (if applicable) CC: ~ [employer] [employer] Work Phone: reason for referral (narrative)* Diagnostic Procedure Only (Routine) - Pending Review Specialty Diagnoses / Procedures Referred By Contac t Referred To Contact [facility] Diagnoses Abnormal screening mammogram Procedures US BREAST LTD LEFT US BREAST UNI REAL TIME WITH IMAGE LIMITED Kandice Mario APRN.CNP [address] [place] [address] [facility] [address] [place] [address] Referral ID Status Reason Start Date Expiration Date Visits Requested Visits Authorized [id number] Pending Review Auto-Generat ed Referral 10/31/2022 11/30/2023 1 1 * Diagnostic Procedure Only (Routine) - Pending Review Specialty Diagnoses / Procedures Referred By Madeline t Referred To Contact [facility] Diagnoses Abnormal screening mammogram Procedures US BREAST LTD RIGHT US BREAST UNI REAL TIME WITH IMAGE LIMITED Kandice Mario APRN.CNP [address] [place] [address] [facility] [address] [place] [address] Referral ID Status Reason Start Date Expiration Date Visits Requested Visits Authorized [id number] Pending Review Auto-Generat ed Referral 10/31/2022 11/30/2023 1 1 * Diagnostic Procedure Only (Routine) - Pending Review Specialty Diagnoses / Procedures Referred By Contac t Referred To Contact [facility] Diagnoses Abnormal screening mammogram Procedures HERMILA DIAGNOSTIC BILATERAL DIAGNOSTIC MAMMOGRAPHY COMPUTER-AIDED DETCJ BI Kandice Mario APRN.CNP [address] [place] [address] [facility] [address] [place] [address] Referral ID Status Reason Start Date Expiration Date Visits Requested Visits Authorized [id number] Pending Review Auto-Generat ed Referral 10/31/2022 11/30/2023 1 1 [facility] for referral (narrative)* Outpatient Procedure (Routine) - Pending Review Specialty Diagnoses / Procedures Referred By Contac t Referred To Contact [facility] Diagnoses Special screening for malignant neoplasms, colon Procedures COLONOSCOPY SCREENING COLONOSCOPY FLX DX W/COLLJ SPEC WHEN PFRMD Kandice Mario APRN.CUSHION COVER INSPECTOR [address] [place] [address] [facility] [address] [place] [address] Referral ID Status Reason Start Date Expiration Date Visits Requested Visits Authorized [id number] Pending Review Auto-Generat ed Referral 11/15/2022 11/16/2023 1 1 * Consult, Test, Treat (Routine) - Pending Review Specialty Diagnoses / Procedures Referred By Contac t Referred To Contact Dermatology Diagnoses Skin lesion of left leg Procedures CONSULT TO DERMATOLOGY OFFICE/OUTPATIENT NEW HIGH MDM 60-74 MINUTES Kandice Mario APRN.CNP [address] [place] [address] Referral ID Status Reason Start Date Expiration Date Visits Requested Visits Authorized [id number] Pending Review PCP Requested Referral 11/15/2022 11/15/2023 1 1 [facility] for referral (narrative)* Diagnostic Procedure Only (Routine) - Pending Review Specialty Diagnoses / Procedures Referred By Contac t Referred To Contact [facility] Diagnoses Abnormal screening mammogram Procedures US BREAST LTD LEFT US BREAST UNI REAL TIME WITH IMAGE LIMITED Kandice Mario APRN.CNP [address] [place] [address] [facility] [address] [place] [address] Referral ID Status Reason Start Date Expiration Date Visits Requested Visits Authorized [id number] Pending Review Auto-Generat ed Referral 10/31/2022 11/30/2023 1 1 * Diagnostic Procedure Only (Routine) - Pending Review Specialty Diagnoses / Procedures Referred By Madeline t Referred To Contact [facility] Diagnoses Abnormal screening mammogram Procedures US BREAST LTD RIGHT US BREAST UNI REAL TIME WITH IMAGE LIMITED Kandice Mario APRN.CNP [address] [place] [address] [facility] [address] [place] [address] Referral ID Status Reason Start Date Expiration Date Visits Requested Visits Authorized [id number] Pending Review Auto-Generat ed Referral 10/31/2022 11/30/2023 1 1 [facility] for referral (narrative)* Diagnostic Procedure Only (Routine) - Pending Review Specialty Diagnoses / Procedures Referred By Madeline hamlin Referred To Contact [facility] Diagnoses Screening mammogram for breast cancer Procedures HERMILA SCREENING SCREENING MAMMOGRAPHY BI 2-VIEW BREAST INC Edward Chaves MD [address] [place] [address] [facility] [address] [place] [address] Referral ID Status Reason Start Date Expiration Date Visits Requested Visits Authorized [id number] Pending Review Auto-Generat ed Referral 10/19/2022 11/18/2023 1 1 [facility] for referral (narrative)* Diagnostic Procedure Only (Routine) - Pending Review Specialty Diagnoses / Procedures Referred By Madeline t Referred To Contact [facility] Diagnoses Encounter for screening mammogram for breast cancer Procedures HERMILA SCREENING W [place] SCREENING DIGITAL BREAST TOMOSYNTHESIS BI SCREENING MAMMOGRAPHY BI 2-VIEW BREAST INC Edward Chaves MD [address] [place] [address] [facility] [address] [place] [address] Referral ID Status Reason Start Date Expiration Date Visits Requested Visits Authorized [id number] Pending Review Auto-Generat ed Referral 01/17/2024 02/15/2025 1 1 [facility] for referral (narrative)* Diagnostic Procedure Only (Routine) - Closed Specialty Diagnoses / Procedures Referred By Contac t Referred To Contact X[facility] IMAGING Diagnoses Acute bilateral low back pain with right-sided sciatica Procedures XR LUMBAR GENERAL 3V AP/LAT/L5-S1 RADEX SPINE LUMBOSACRAL 2/3 VIEWS Edward Martinez MD [address] [place] [address] [place] [address] Referral ID Status Reason Start Date Expiration Date V isits Requested Visits Authorized [id number] Closed Auto-Generate d Referral 10/19/2022 11/18/2023 1 1 [facility] for referral (narrative)No reason for referral information availableWMagruder [facility] Work Phone: [facility] for visit Narrative* Diagnostic Procedure Only (Routine) - Pending Review Specialty Diagnoses / Procedures Referred By Madeline t Referred To Contact [facility] Diagnoses Screening mammogram for breast cancer Procedures HERMILA SCREENING SCREENING MAMMOGRAPHY BI 2-VIEW BREAST INC CAD Edward Martinez MD [address] [place] [address] [facility] [address] [place] [address] Referral ID Status Reason Start Date Expiration Date Visits Requested Visits Authorized [id number] Pending Review Auto-Generat ed Referral 10/19/2022 11/18/2023 1 1 [facility] for visit Narrative* Diagnostic Procedure Only (Routine) - Closed Specialty Diagnoses / Procedures Referred By Contac t Referred To Contact [facility] Diagnoses Abnormal screening mammogram Procedures HERMILA DIAGNOSTIC BILATERAL DIAGNOSTIC MAMMOGRAPHY COMPUTER-AIDED DETCJ BI Older, Kandice, RODBUSTER.CUSHION COVER INSPECTOR [address] [place] [address] [facility] [address] [place] [address] Referral ID Status Reason Start Date Expiration Date V isits Requested Visits Authorized [id number] Closed Auto-Generate d Referral 10/31/2022 11/30/2023 1 [facility] Diagnostic Procedure Only (Routine) - Closed Specialty Diagnoses / Procedures Referred By Contac t Referred To Contact XR IMAGING Diagnoses Acute bilateral low back pain with right-sided sciatica Procedures XR LUMBAR GENERAL 3V AP/LAT/L5-S1 RADEX SPINE LUMBOSACRAL 2/3 VIEWS Edward Martinez MD [address] [place] [address] [place] [address] Referral ID Status Reason Start Date Expiration Date V isits Requested Visits Authorized [id number] Closed Auto-Generate d Referral 10/19/2022 11/18/2023 1 1 [facility] Summary Purpose Family History No Family History Records Found Relationship Condition Age at Onset Recorded Date/T berenice grandmother Malignant neoplasm of lung Unknown Cardiac disease Unknown uncle Malignant neoplasm of lung Unknown Advance Directives No Advanced Directives Records Found Advance Directive Response Recorded Date/ Time Advance Directives No June 7:48pm Living Will No July 08 023 7:50am Power of Fire Safety Manager No July 08, 2023 7:50am Advance Directive Response Recorded Date/ Time Advance Directives No June 8:48pm Living Will No July 08 023 8:50am Power of Fire Safety Manager No July 08, 2023 8:50am Advance Directive Response Recorded Date/ Time Advance Directives No June 8:48pm Advance Directive Response Recorded Date/ Time Living Will No October 17, 2024 3:20pm Do you have a Healthcare Power of Fire Safety Manager? No October 17, 2024 3:20pm Advance Directives No June 8:48pm Advance Directive Response Recorded Date/ Time Do you have a Healthcare Power of Fire Safety Manager? No February 21, 2025 10:19am Advance Directives No June 8:48pm Advance Directive Response Recorded Date/ Time Advance Directives on File No [email or web address] 10:05am Living Will No March 24 025 10:05am Do you have a Healthcare Power of Fire Safety Manager? No March 24, 2025 10:05am Advance Directives No March 10:05am Do you have a Healthcare Power of Fire Safety Manager? No February 21, 2025 10:19am Advance Directive Response Recorded Date/ Time Advance Directives on File No Octob er 2024 9:59am Living Will No April 21 9:59am Do you have a Healthcare Power of Fire Safety Manager? No April 21, 2025 9:59am Advance Directives No April 21, 2025 9:59am Do you have a Healthcare Power of Fire Safety Manager? No February 21, 2025 10:19am Advance Directive Response Recorded Date/ Time Advance Directives on File No Octob er 2024 9:33am Living Will No May 12 9:33am Do you have a Healthcare Power of Fire Safety Manager? No May 12, 2025 9:33am Advance Directives No May 12, 2025 9:33am Do you have a Healthcare Power of Fire Safety Manager? 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 Expl anation HealthCare Power of Fire Safety Manager 04/21/2025 Advance Directives/Living Will 04/21/2025 Chief Complaint and Reason for Visit Chief Complaint back Chief Complaint back 6 MONTH F/U (FROM [facility] 11/2022 M[facility]M/US) Chief Complaint back 6 MONTH F/U (FROM [facility] 11/2022 [facility]AMM/US) CARPAL TUNNEL VS CERVICAL RADICULOPATHY [...] intrathoracic lymph node February 25, 2025 9:05am Chief Complaint Admit Date Lung cancer screening [...] right poss left March 03, 2025 11:42am CHEMO ED March 04, 2025 2: 40pm Chief Complaint Admit Date Lung cancer screening [...] right poss left March 03, 2025 11:42am CHEMO ED March 04, 2025 2: 40pm [facility](PENDING INSURANCE) Septem 2024 7:40am [facility]END[facility]) 2024 7:42am Reason for Visit Admit Date Encounter for [...] intrathoracic lymph node February 25, 2025 9:05am Encounter for education March 04 2:40pm 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 March 04, 2025 2:40pm 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 March 04, 2025 2:40pm Chemotherapy management, encounter for S se 2024 7:42am Immunotherapy encounter March 24, 2 025 7:42am 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 March 24, 2025 7:42am 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 March 24, 2025 7:42am Chief Complaint Admit Date Lung cancer screening [...] right poss left March 03, 2025 11:42am CHEMO ED March 04, 2025 2: 40pm [facility](PENDING INSUR[facility]) Septem 2024 7:42am CALF PAIN April 01, 2025 8:52am Reason for Visit Admit Date Encounter for [...] intrathoracic lymph node February 25, 2025 9:05am Encounter for education March 04 2:40pm 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 March 04, 2025 2:40pm 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 March 04, 2025 2:40pm Chemotherapy management, encounter for Raghu saez 2024 7:42am Immunotherapy encounter March 24, 025 7:42am 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 March 24, 2025 7:42am 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 March 24, 2025 7:42am 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 April 01, 2025 8:52am 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 April 01, 2025 8:52am Chief Complaint Admit Date Lung cancer screening [...] right poss left March 03, 2025 11:42am CHEMO ED March 04, 2025 2: 40pm [facility](PEND[facility]) Sept2024 7:42am CALF PAIN April 01, 2025 8:52am RT LEG PAIN April 01, 2025 9:53am RLE PAIN April 01, 2025 9:55am [facility] TOX CHECK April 07, 2025 9:13am [facility] [place] April 14, 2025 8:39am [facility](PENDING [facility]) Septem 2024 8:45am Reason for Visit Admit Date Encounter for [...] intrathoracic lymph node February 25, 2025 9:05am Encounter for education March 04 2:40pm 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 March 04, 2025 2:40pm 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 March 04, 2025 2:40pm Chemotherapy management, encounter for S eptember 2024 7:42am Immunotherapy encounter March 24 7:42am 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 March 24, 2025 7:42am 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 March 24, 2025 7:42am 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 April 01, 2025 8:52am Right calf pain April 01, 2025 8:52am 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 April 01, 2025 8:52am Neutropenia April 07, 2025 9:13am 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 April 07, 2025 9:13am Rash April 07, 2025 9:13am 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 April 07, 2025 9:13am Chemotherapy management, encounter for S eptember 2024 8:39am Immunotherapy encounter April 14, 2025 8:39am Neutropenia April 14, 2025 8:39am 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 April 14, 2025 8:39am 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 April 14, 2025 8:39am Chief Complaint Admit Date Lung cancer screening [...] right poss left March 03, 2025 11:42am CHEMO ED March 04, 2025 2: 40pm [facility](PENDING [facility]UR[facility]) Septem 2024 7:42am CALF PAIN April 01, 2025 8:52am RT LEG PAIN April 01, 2025 9:53am RLE PAIN April 01, 2025 9:55am [facility] TOX CHECK April 07, 2025 9:13am [facility] [place] April 14, 2025 8:39am [facility] [place] April 21, 2025 8: 08am [facility](PENDING [facility]UR[facility]) Octobe r 2024 8:15am Reason for Visit Admit Date Encounter for [...] intrathoracic lymph node February 25, 2025 9:05am Encounter for education March 04 2:40pm 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 March 04, 2025 2:40pm 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 March 04, 2025 2:40pm Chemotherapy management, encounter for S eptember 2024 7:42am Immunotherapy encounter March 24 025 7:42am 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 March 24, 2025 7:42am 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 March 24, 2025 7:42am 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 April 01, 2025 8:52am Right calf pain April 01, 2025 8:52am 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 April 01, 2025 8:52am Neutropenia April 07, 2025 9:13am 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 April 07, 2025 9:13am Rash April 07, 2025 9:13am 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 April 07, 2025 9:13am Chemotherapy management, encounter for S eptember 2024 8:39am Immunotherapy encounter April 14, 2025 8:39am Neutropenia April 14, 2025 8:39am 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 April 14, 2025 8:39am 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 April 14, 2025 8:39am Chemotherapy management, encounter for O ct2024 8:08am Elevated LFTs April 21, 2025 8: 08am Immunotherapy encounter April 21 8:08am Neutropenia April 21, 2025 8: 08am 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 April 21, 2025 8:08am 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 April 21, 2025 8:08am Chief Complaint Admit Date Other nonspecific abnormal finding of sneha ng [...] right poss left March 03, 2025 11:42am CHEMO ED March 04, 2025 2: 40pm [facility](PENDING INSUR[facility]) Septem 2024 7:42am CALF PAIN April 01, 2025 8:52am RT LEG PAIN April 01, 2025 9:53am RLE PAIN April 01, 2025 9:55am [facility] TOX CHECK April 07, 2025 9:13am [facility] [place] April 14, 2025 8:39am [facility] [place] April 21, 2025 8: 08am RUQ ABD PAIN, ELEVATED LFT'S April 8:00am [facility] TOX CHECK May 01 9:43am [facility] [place] May 12, 2025 7 :39am Imfinzi/3hr Taxol/Carbo May 12 7:45am Reason for Visit Admit Date Shortness of breath January 30, 2025 9:11 [...] intrathoracic lymph node February 25, 2025 9:05am Encounter for education March 04 2:40pm 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 March 04, 2025 2:40pm 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 March 04, 2025 2:40pm Chemotherapy management, encounter for Raghu saez 2024 7:42am Immunotherapy encounter March 24 025 7:42am 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 March 24, 2025 7:42am 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 March 24, 2025 7:42am 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 April 01, 2025 8:52am Right calf pain April 01, 2025 8:52am 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 April 01, 2025 8:52am Neutropenia April 07, 2025 9:13am 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 April 07, 2025 9:13am Rash April 07, 2025 9:13am 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 April 07, 2025 9:13am Chemotherapy management, encounter for S eptember 2024 8:39am Immunotherapy encounter April 14, 2025 8:39am Neutropenia April 14, 2025 8:39am 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 April 14, 2025 8:39am 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 April 14, 2025 8:39am Chemotherapy management, encounter for O ctober 2024 8:08am Elevated LFTs April 21, 2025 8: 08am Immunotherapy encounter April 21 8:08am Neutropenia April 21, 2025 8: 08am 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 April 21, 2025 8:08am 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 April 21, 2025 8:08am Constipation May 01, 2025 9 :43am Elevated LFTs May 01, 2025 9 :43am 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 May 01, 2025 9:43am 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 May 01, 2025 9:43am Chemotherapy management, encounter for O ctober 2024 7:39am Elevated LFTs May 12, 2025 7 :39am Immunotherapy encounter May 12 7:39am 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 May 12, 2025 7:39am 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 May 12, 2025 7:39am Additional Source Comments INFORMATION SOURCE (unrecogn ized section and content) DATE CREATED AUTHOR 02/10/2020 [facility] DATE CREATED AUTHOR AUTHOR'S ORGANIZ ATION 01/19/2025 [facility] DATE CREATED AUTHOR AUTHOR'S ORGANIZ ATION 05/25/2025 [facility] DATE CREATED AUTHOR AUTHOR'S ORGANIZ ATION 05/26/2025 [facility] Source Comments (unrecognize d section and content) In the event this informatio n is protected by the Federal Confidentiality of Alcohol and Drug Abuse Patient Records regulations: The Federal rules restrict any use of the information to criminally investigate or prosecute any alcohol or drug abuse patient.[facility] the event this information is protected by the Federal Confidentiality of Alcohol and Drug Abuse Patient Records regulations: The Federal rules restrict any use of the information to criminally investigate or prosecute any alcohol or drug abuse patient.[facility] the event this information is protected by the Federal Confidentiality of Alcohol and Drug Abuse Patient Records regulations: The Federal rules restrict any use of the information to criminally investigate or prosecute any alcohol or drug abuse patient.[facility] the event this information is protected by the Federal Confidentiality of Alcohol and Drug Abuse Patient Records regulations: The Federal rules restrict any use of the information to criminally investigate or prosecute any alcohol or drug abuse patient.[facility] the event this information is protected by the Federal Confidentiality of Alcohol and Drug Abuse Patient Records regulations: The Federal rules restrict any use of the information to criminally investigate or prosecute any alcohol or drug abuse patient.[facility] the event this information is protected by the Federal Confidentiality of Alcohol and Drug Abuse Patient Records regulations: The Federal rules restrict any use of the information to criminally investigate or prosecute any alcohol or drug abuse patient.[facility] the event this information is protected by the Federal Confidentiality of Alcohol and Drug Abuse Patient Records regulations: The Federal rules restrict any use of the information to criminally investigate or prosecute any alcohol or drug abuse patient.[facility] the event this information is protected by the Federal Confidentiality of Alcohol and Drug Abuse Patient Records regulations: The Federal rules restrict any use of the information to criminally investigate or prosecute any alcohol or drug abuse patient.[facility] the event this information is protected by the Federal Confidentiality of Alcohol and Drug Abuse Patient Records regulations: The Federal rules restrict any use of the information to criminally investigate or prosecute any alcohol or drug abuse patient.[facility] the event this information is protected by the Federal Confidentiality of Alcohol and Drug Abuse Patient Records regulations: The Federal rules restrict any use of the information to criminally investigate or prosecute any alcohol or drug abuse patient.[facility] the event this information is protected by the Federal Confidentiality of Alcohol and Drug Abuse Patient Records regulations: The Federal rules restrict any use of the information to criminally investigate or prosecute any alcohol or drug abuse patient.[facility] the event this information is protected by the Federal Confidentiality of Alcohol and Drug Abuse Patient Records regulations: The Federal rules restrict any use of the information to criminally investigate or prosecute any alcohol or drug abuse patient.[facility] Reason for Visit (unrecogniz ed section and content) Reason Comments Pain, Back Lower back pain x 3 days-started after lifting Reason Comments Medication Request Reason Comments mammogram orders/US Reason Comments Physical Therapy Specialty Diagnoses / Procedures Referred By Contac t Referred To Contact INTERNAL MEDICINE Diagnoses BACK PAIN Procedures NEW PATIENT Self [address] [place] [address] [place] [address] Referral ID Status Reason Start Date Expiration Date Visits Requested Visits Authorized [id number] Authorized Patient Cleared - Qualified [id number] 10/17/2022 01/15/2023 99 99 Reason Comments 4 week follow up - back pain, lab result s Specialty Diagnoses / Procedures Referred By Contac t Referred To Contact INTERNAL MEDICINE Diagnoses BACK PAIN Procedures NEW PATIENT Self [facility] [place] [address] [place] [address] Reason Comments Radiology US Specialty Diagnoses / Procedures Referred By Contac t Referred To Contact BR IMAGING Diagnoses Abnormal screening mammogram Procedures US BREAST LTD LEFT US BREAST UNI REAL TIME WITH IMAGE LIMITED Kandice Mario APRN.CUSHION COVER INSPECTOR [address] [place] [address] [facility] [address] [place] [address] Referral ID Status Reason Start Date Expiration Date Visits Requested Visits Authorized [id number] Pending Review Auto-Generat ed Referral 10/31/2022 11/30/2023 1 1 Reason Comments New Patient Occasional nonproduc tive cough. 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 Justus Robertosn MD Other Provider Active St art: October 22, 2024 Team Status: Inactive Member Role Status Dates Dr. Joann Live MD Primary Care Provider Active Start: January 07, 2025 End: January 07, 2025 Dr. Joann Live MD Referring Provider Active Start: January 07, 2025 End: January 07, 2025 Chayo Black CAN CRIMPER, CAN CRIMPER-C Attending Provider Active Start: January 07, 2025 End: January 07, 2025 Oil Dispatcher Relationship Specialty Start Date End Date Edward Martinez MD [address] [facility] [place] [address] PCP - General Internal Medicine 10/19/22 Oil Dispatcher Relationship Specialty Start Date End Date Edward Martinez MD [address] [facility] [place] [address] PCP - General Internal Medicine 10/19/22 Oil Dispatcher Relationship Specialty Start Date End Date Edward Martinez MD [address] [facility] [place] [address] PCP - General Internal Medicine 10/19/22 Oil Dispatcher Relationship Specialty Start Date End Date Edward Martinez MD [address] [facility] [place] [address] PCP - General Internal Medicine 10/19/22 Oil Dispatcher Relationship Specialty Start Date End Date Edward Martinez MD [address] [facility] [place] [address] PCP - General Internal Medicine 10/19/22 Oil Dispatcher Relationship Specialty Start Date End Date Edward Martinez MD [address] [facility] [place] [address] PCP - General Internal Medicine 10/19/22 Oil Dispatcher Relationship Specialty Start Date End Date Edward Martinez MD [address] [facility] [place] [address] PCP - General Internal Medicine 10/19/22 Oil Dispatcher Relationship Specialty Start Date End Date Edward Martinez MD [address] [facility] [place] [address] PCP - General Internal Medicine 10/19/22 Team Status: Active Member Role Status Dates [facility] Family Provider Active No Primary Care Physician Primary Care Provider Active Team Status: Inactive Member Role Status Dates Dr. Chirag Cuadra DO Emergency Provider Active No Primary Care Physician Primary Care Provider Active Team Status: Active Member Role Status Dates [facility] Family Provider Active Dr. Joann Live MD [...] Dr. Elinor Carrasco MD Attending Provider Active Oil Dispatcher Relationship Specialty Start Date End Date Edward Martinez MD [address] [place] [address] PCP - General Internal Medicine 10/19/22 Team Status: Active Member Role Status Dates Dr. Joann Live MD Primary Care Provider Active Start: August 15, 2024 Shabnam Haynes Attending Provider Active Start: 2024 Team Status: Active Member Role Status Dates Dr. Joann Live MD Primary Care Provider Active Start: January 07, 2025 Chayo Black CAN CRIMPER, CAN CRIMPER-C Attending Provider Active Start: January 07, 2025 Chayo Black CAN CRIMPER, CAN CRIMPER-C Referring Provider Active Start: January 07, 2025 Team Status: Inactive Member Role Status Dates Dr. Joann Live MD Primary Care Provider Active Start: January 08, 2025 End: January 08, 2025 Dr. Joann Live MD Referring Provider Active Start: January 08, 2025 End: January 08, 2025 Negin Acevedo CAN CRIMPER, CAN CRIMPER-C Attending Provider Active Start: January 08, 2025 [...] 2025 End: January 07, 2025 Chayo Black CAN CRIMPER, CAN CRIMPER-C Attending Provider Active Start: January 07, 2025 End: January 07, 2025 Team Status: Inactive Member Role/Relationship Status Dates Dr. Joann Live MD Primary Care Provider Active Start: January 07, 2025 End: January 07, 2025 Chayo Black CAN CRIMPER, CAN CRIMPER-C Attending Provider Active Start: January 07, 2025 End: January 07, 2025 Chayo Black CAN CRIMPER, CAN CRIMPER-C Referring Provider Active Start: January 07, 2025 End: January 07, 2025 Team Status: Inactive Member Role/Relationship Status Dates Dr. Joann Live MD Primary Care Provider Active Start: January 08, 2025 End: January 08, 2025 Dr. Joann Live MD Referring Provider Active Start: January 08, 2025 End: January 08, 2025 Negin Acevedo CAN CRIMPER, CAN CRIMPER-C Attending Provider Active Start: January 08, 2025 End: January 08, 2025 Team Status: Active Member Role/Relationship Status Dates Dr. Joann Live MD Primary Care Provider Active Start: January 08, 2025 Negin Acevedo CAN CRIMPER, CAN CRIMPER-C Attending Provider Active Start: January 08, 2025 Negin Acevedo CAN CRIMPER, CAN CRIMPER-C Referring Provider Active Start: January 08, 2025 Team Status: Inactive Member Role/Relationship Status Dates Dr. Joann Live MD Primary Care Provider Active Start: January 08, 2025 End: January 08, 2025 Negin Acevedo CAN CRIMPER, CAN CRIMPER-C Attending Provider Active Start: January 08, 2025 End: January 08, 2025 Negin Acevedo CAN CRIMPER, CAN CRIMPER-C Referring Provider Active Start: January 08, 2025 End: January 08, 2025 Oil Dispatcher Relationship Specialty Start Date End Date Edward Martinez MD [address] [facility] [place] [address] PCP - General Internal Medicine 10/19/22 Kandice Mead, RODBUSTER.CUSHION COVER INSPECTOR [address] [facility] [place] [address] Program Host Internal Medicine 06/24/24 Team Status: Inactive Member Role/Relationship Status Dates Dr. Joann Live MD Primary Care Provider Active Start: January 21, 2025 End: January 21, 2025 Negin Acevedo CAN CRIMPER, CAN CRIMPER-C Attending Provider Active Start: January 21, 2025 End: January 21, 2025 Negin Acevedo CAN CRIMPER, CAN CRIMPER-C Referring Provider Active Start: January 21, 2025 End: January 21, 2025 Team Status: Active Member Role/Relationship Status Dates Dr. Joann Live MD Primary Care Provider Active Start: January 23, 2025 Negin Acevedo CAN CRIMPER, CAN CRIMPER-C Attending Provider Active Start: January 23, 2025 Negin Acevedo CAN CRIMPER, CAN CRIMPER-C Referring Provider Active Start: January 23, 2025 Team Status: Active Member Role/Relationship Status Dates Dr. Joann Live MD Primary Care Provider Active Start: January 24, 2025 Negin Acevedo CAN CRIMPER, CAN CRIMPER-C Referring Provider Active Start: January 24, 2025 Negin Acevedo CAN CRIMPER, CAN CRIMPER-C Other Provider Active Start: January 24, 2025 Dr. Brodie Low DO Attending Provider Active S tart: January 24, 2025 Team Status: Inactive Member Role/Relationship Status Dates Dr. Joann Live MD Primary Care Provider Active Start: January 23, 2025 End: January 23, 2025 Negin Acevedo CAN CRIMPER, CAN CRIMPER-C Attending Provider Active Start: January 23, 2025 End: January 23, 2025 Negin Acevedo CAN CRIMPER, CAN CRIMPER-C Referring Provider Active Start: January 23, 2025 End: January 23, 2025 Team Status: Inactive Member Role/Relationship Status Dates Dr. Joann Live MD Primary Care Provider Active Start: January 30, 2025 End: January 30, 2025 Dr. Joann Live MD Referring Provider Active Start: January 30, 2025 End: January 30, 2025 Negin Acevedo CAN CRIMPER, CAN CRIMPER-C Attending Provider Active Start: January 30, 2025 End: January 30, 2025 Team Status: Inactive Member Role/Relationship Status Dates Dr. Joann Live MD Primary Care Provider Active Start: January 07, 2025 End: January 07, 2025 Chayo Black CAN CRIMPER, CAN CRIMPER-C Attending Provider Active Start: January 07, 2025 End: January 07, 2025 Chayo Black CAN CRIMPER, CAN CRIMPER-C Referring Provider Active Start: January 07, 2025 End: January 07, 2025 Team Status: Active Member Role/Relationship Status Dates Dr. Joann Live MD Primary Care Provider Active Start: February 11, 2025 Negin Acevedo CAN CRIMPER, CAN CRIMPER-C Attending Provider Active Start: February 11, 2025 Negin Acevedo CAN CRIMPER, CAN CRIMPER-C Referring Provider Active Start: February 11, 2025 Team Status: Inactive Member Role/Relationship Status Dates Dr. Joann Live MD Primary Care Provider Active Start: February 17, 2025 End: February 17, 2025 Negin Acevedo CAN CRIMPER, CAN CRIMPER-C Referring Provider Active Start: February 17, 2025 End: February 17, 2025 Dr. Ottoniel Cabrera MD Attending Provider Active S tart: February 17, 2025 End: February 17, 2025 Team Status: Inactive Member Role/Relationship Status Dates Dr. Joann Live MD Primary Care Provider Active Start: February 11, 2025 End: February 11, 2025 Negin Acevedo CAN CRIMPER, CAN CRIMPER-C Attending Provider Active Start: February 11, 2025 End: February 11, 2025 Negin Acevedo CAN CRIMPER, CAN CRIMPER-C Referring Provider Active Start: February 11, 2025 End: February 11, 2025 Team Status: Inactive Member Role/Relationship Status Dates Dr. Joann Live MD Primary Care Provider Active Start: January 07, 2025 End: January 07, 2025 Chayo Black CAN CRIMPER, CAN CRIMPER-C Attending Provider Active Start: January 07, 2025 End: January 07, 2025 Chyao Black CAN CRIMPER, CAN CRIMPER-C Referring Provider Active Start: January 07, 2025 End: January 07, 2025 Team Status: Inactive Member Role/Relationship Status Dates Dr. Joann Live MD Primary Care Provider Active Start: January 07, 2025 End: January 07, 2025 Chayo Black CAN CRIMPER, CAN CRIMPER-C Attending Provider Active Start: January 07, 2025 End: January 07, 2025 Chayo Black CAN CRIMPER, CAN CRIMPER-C Referring Provider Active Start: January 07, 2025 End: January 07, 2025 Team Status: Inactive Member Role/Relationship Status Dates Dr. Joann Live MD Primary Care Provider Active Start: January 08, 2025 End: January 08, 2025 Dr. Joann Live MD Referring Provider Active Start: January 08, 2025 End: January 08, 2025 Negin Acevedo CAN CRIMPER, CAN CRIMPER-C Attending Provider Active Start: January 08, 2025 End: January 08, 2025 Team Status: Inactive Member Role/Relationship Status Dates Dr. Joann Live MD Primary Care Provider Active Start: January 08, 2025 End: January 08, 2025 Negin Acevedo CAN CRIMPER, CAN CRIMPER-C Attending Provider Active Start: January 08, 2025 End: January 08, 2025 Negin Acevedo CAN CRIMPER, CAN CRIMPER-C Referring Provider Active Start: January 08, 2025 End: January 08, 2025 Team Status: Inactive Member Role/Relationship Status Dates Dr. Joann Live MD Primary Care Provider Active Start: January 21, 2025 End: January 21, 2025 Negin Acevedo CAN CRIMPER, CAN CRIMPER-C Attending Provider Active Start: January 21, 2025 End: January 21, 2025 Negin Acevedo CAN CRIMPER, CAN CRIMPER-C Referring Provider Active Start: January 21, 2025 End: January 21, 2025 Team Status: Inactive Member Role/Relationship Status Dates Dr. Joann Live MD Primary Care Provider Active Start: January 23, 2025 End: January 23, 2025 Negin Acevedo CAN CRIMPER, CAN CRIMPER-C Attending Provider Active Start: January 23, 2025 End: January 23, 2025 Negin Acevedo CAN CRIMPER, CAN CRIMPER-C Referring Provider Active Start: January 23, 2025 End: January 23, 2025 Team Status: Active Member Role/Relationship Status Dates Dr. Joann Live MD Primary Care Provider Active Start: January 24, 2025 Negin Acevedo CAN CRIMPER, CAN CRIMPER-C Referring Provider Active Start: January 24, 2025 Negin Acevedo CAN CRIMPER, CAN CRIMPER-C Other Provider Active Start: January 24, 2025 Dr. Brodie Low DO Attending Provider Active S tart: January 24, 2025 Team Status: Inactive Member Role/Relationship Status Dates Dr. Joann Live MD Primary Care Provider Active Start: January 30, 2025 End: January 30, 2025 Dr. Joann Live MD Referring Provider Active Start: January 30, 2025 End: January 30, 2025 Negin Acevedo CAN CRIMPER, CAN CRIMPER-C Attending Provider Active Start: January 30, 2025 End: January 30, 2025 Team Status: Inactive Member Role/Relationship Status Dates Dr. Joann Live MD Primary Care Provider Active Start: February 11, 2025 End: February 11, 2025 Negin Aecvedo CAN CRIMPER, CAN CRIMPER-C Attending Provider Active Start: February 11, 2025 End: February 11, 2025 Negin Acevedo CAN CRIMPER, CAN CRIMPER-C Referring Provider Active Start: February 11, 2025 End: February 11, 2025 Team Status: Inactive Member Role/Relationship Status Dates Dr. Joann Live MD Primary Care Provider Active Start: February 17, 2025 End: February 17, 2025 Negin Acevedo CAN CRIMPER, CAN CRIMPER-C Referring Provider Active Start: February 17, 2025 [...] 21, 2025 End: February 21, 2025 Dr. Mauri Tyler DO Attending Provider Active Start: February 21, [...] Other Provider Active Start: March 03, 2025 Team Status: Inactive Member Role/Relationship Status Dates Dr. Joann Live MD Primary Care Provider Active Start: March 04, 2025 End: March 04, 2025 Dr. Joann Live MD Referring Provider Active Start: March 04, 2025 End: March 04, 2025 Chayo Black CAN CRIMPER, CAN CRIMPER-C Attending Provider Active Start: March 04, 2025 End: March 04, 2025 Team Status: Inactive Member Role/Relationship Status Dates Dr. Joann Live MD Primary Care Provider Active Start: February 28, 2025 End: February 28, 2025 Dr. Ottoniel Cabrera MD Attending Provider Active S tart: February 28, 2025 End: February 28, 2025 Dr. Ottoniel Cabrera MD Referring Provider Active S tart: February 28, 2025 End: February 28, 2025 Oil Dispatcher Relationship Specialty Start Date End Date Aleksandra Barajas, KALEY Registered Nurse 03/06/25 Mauri Tyler DO [address] [place] [id number] Referring Provider Radiation Oncology 03/06/25 Team Status: Active Member Role/Relationship Status Dates Dr. Joann Live MD Primary Care Provider Active Start: March 24, 2025 Dr. Mauri Tyler DO Attending Provider Active Start: March 24, 2025 Dr. Mauri Tyler DO Referring Provider Active Start: March 24, 2025 Team Status: Inactive Member Role/Relationship Status Dates Dr. Joann Live MD Primary Care Provider Active Start: March 24, 2025 End: March 24, 2025 Dr. Joann Live MD Referring Provider Active Start: March 24, 2025 End: March 24, 2025 Dr. Ottoniel Cabrera MD Attending Provider Active S tart: March 24, 2025 End: March 24, 2025 Team Status: Inactive Member Role/Relationship Status Dates Dr. Joann Live MD Primary Care Provider Active Start: March 24, 2025 End: March 24, 2025 Dr. Joann Live MD Referring Provider Active Start: March 24, 2025 End: March 24, 2025 Dr. Ottoniel Cabrera MD Attending Provider Active S tart: March 24, 2025 End: March 24, 2025 Team Status: Inactive Member Role/Relationship Status Dates Dr. Joann Live MD Primary Care Provider Active Start: April 01, 2025 End: April 01, 2025 Dr. Joann Live MD Referring Provider Active Start: April 01, 2025 End: April 01, 2025 Chayo Black NP, CAN CRIMPER-C Attending Provider Active Start: April 01, 2025 End: April 01, 2025 Team Status: Active Member Role/Relationship Status Dates Dr. Joann Live MD Primary care physician Active Team Status: Inactive Member Role/Relationship Status Dates Dr. Joann Live MD Primary care physician Active Start: January 07, 2025 End: January 07, 2025 Chayo Black CAN CRIMPER, CAN CRIMPER-C Attending physician Active Start: January 07, 2025 End: January 07, 2025 Chayo Black CAN CRIMPER, CAN CRIMPER-C Referring Provider Active Start: January 07, 2025 End: January 07, 2025 Team Status: Inactive Member Role/Relationship Status Dates Dr. Joann Live MD Primary care physician Active Start: January 07, 2025 End: January 07, 2025 Chayo Black CAN CRIMPER, CAN CRIMPER-C Attending physician Active Start: January 07, 2025 End: January 07, 2025 Chayo Black CAN CRIMPER, CAN CRIMPER-C Referring Provider Active Start: January 07, 2025 End: January 07, 2025 Team Status: Inactive Member Role/Relationship Status Dates Dr. Joann Live MD Primary care physician Active Start: January 08, 2025 End: January 08, 2025 Dr. Joann Live MD Referring Provider Active Start: January 08, 2025 End: January 08, 2025 Negin Acevedo CAN CRIMPER, CAN CRIMPER-C Attending physician Active Start: January 08, 2025 End: January 08, 2025 Team Status: Inactive Member Role/Relationship Status Dates Dr. Joann Live MD Primary care physician Active Start: January 08, 2025 End: January 08, 2025 Negin Acevedo CAN CRIMPER, CAN CRIMPER-C Attending physician Active Start: January 08, 2025 End: January 08, 2025 Negin Acevedo CAN CRIMPER, CAN CRIMPER-C Referring Provider Active Start: January 08, 2025 End: January 08, 2025 Team Status: Inactive Member Role/Relationship Status Dates Dr. Joann Live MD Primary care physician Active Start: January 21, 2025 End: January 21, 2025 Negin Acevedo CAN CRIMPER, CAN CRIMPER-C Attending physician Active Start: January 21, 2025 End: January 21, 2025 Negin Acevedo CAN CRIMPER, CAN CRIMPER-C Referring Provider Active Start: January 21, 2025 End: January 21, 2025 Team Status: Inactive Member Role/Relationship Status Dates Dr. Joann Live MD Primary care physician Active Start: January 23, 2025 End: January 23, 2025 Negin Acevedo CAN CRIMPER, CAN CRIMPER-C Attending physician Active Start: January 23, 2025 End: January 23, 2025 Negin Acevedo CAN CRIMPER, CAN CRIMPER-C Referring Provider Active Start: January 23, 2025 End: January 23, 2025 Team Status: Active Member Role/Relationship Status Dates Dr. Joann Live MD Primary care physician Active Start: January 24, 2025 Negin Acevedo CAN CRIMPER, CAN CRIMPER-C Referring Provider Active Start: January 24, 2025 Negin Acevedo CAN CRIMPER, CAN CRIMPER-C Nurse Practitioner Active Start: January 24, 2025 Dr. Brodie Low DO Attending physician Active Start: January 24, 2025 Team Status: Inactive Member Role/Relationship Status Dates Dr. Joann Live MD Primary care physician Active Start: January 30, 2025 End: January 30, 2025 Dr. Joann Live MD Referring Provider Active Start: January 30, 2025 End: January 30, 2025 Negin Acevedo CAN CRIMPER, CAN CRIMPER-C Attending physician Active Start: January 30, 2025 End: January 30, 2025 Team Status: Inactive Member Role/Relationship Status Dates Dr. Joann Live MD Primary care physician Active Start: February 11, 2025 End: February 11, 2025 Negin Acevedo CAN CRIMPER, CAN CRIMPER-C Attending physician Active Start: February 11, 2025 End: February 11, 2025 Negin Acevedo CAN CRIMPER, CAN CRIMPER-C Referring Provider Active Start: February 11, 2025 End: February 11, 2025 Team Status: Inactive Member Role/Relationship Status Dates Dr. Joann Live MD Primary care physician Active Start: February 17, 2025 End: February 17, 2025 Negin Acevedo CAN CRIMPER, CAN CRIMPER-C Referring Provider Active Start: February 17, 2025 End: February 17, 2025 Dr. Ottoniel Cabrera MD Attending physician Active Start: February 17, 2025 End: February 17, 2025 Team Status: Inactive Member Role/Relationship Status Dates Dr. Joann Live MD Primary care physician Active Start: February 21, 2025 End: February 21, 2025 Dr. Joann Live MD Referring Provider Active Start: February 21, 2025 End: February 21, 2025 Dr. Mauri Tyler DO Attending physician Active Start: February 21, 2025 End: February 21, 2025 Team Status: Inactive Member Role/Relationship Status Dates Dr. Joann Live MD Primary care physician Active Start: February 25, 2025 End: February 25, 2025 Dr. Allan Fam MD Attending physician Active Start: February 25, 2025 End: February 25, 2025 Dr. Ottoniel Cabrera MD Referring Provider Active S tart: February 25, 2025 End: February 25, 2025 Team Status: Inactive Member Role/Relationship Status Dates Dr. Joann Live MD Primary care physician Active Start: February 28, 2025 End: February 28, 2025 Dr. Ottoniel Cabrera MD Attending physician Active Start: February 28, 2025 End: February 28, 2025 Dr. Ottnoiel Cbarera MD Referring Provider Active S tart: February 28, 2025 End: February 28, 2025 Team Status: Inactive Member Role/Relationship Status Dates Dr. Joann Live MD Primary care physician Active Start: March 03, 2025 End: March 03, 2025 Dr. Allan Fam MD Attending physician Active Start: March 03, 2025 End: March 03, 2025 Dr. Allan Fam MD Referring Provider Active Start: March 03, 2025 End: March 03, 2025 Team Status: Active Member Role/Relationship Status Dates Dr. Joann Live MD Primary care physician Active Start: March 03, 2025 Dr. Allan Fam MD Attending physician Active Start: March 03, 2025 Dr. Allan Fam MD Referring Provider Active Start: March 03, 2025 Dr. Allan Fam MD Nurse Practitioner Active Start: March 03, 2025 Team Status: Inactive Member Role/Relationship Status Dates Dr. Joann Live MD Primary care physician Active Start: March 04, 2025 End: March 04, 2025 Dr. Joann Live MD Referring Provider Active Start: March 04, 2025 End: March 04, 2025 Chayo Black CAN CRIMPER, CAN CRIMPER-C Attending physician Active Start: March 04, 2025 End: March 04, 2025 Team Status: Inactive Member Role/Relationship Status Dates Dr. Joann Live MD Primary care physician Active Start: March 24, 2025 End: March 24, 2025 Dr. Joann Live MD Referring Provider Active Start: March 24, 2025 End: March 24, 2025 Dr. Ottoniel Cabrera MD Attending physician Active Start: March 24, 2025 End: March 24, 2025 Team Status: Inactive Member Role/Relationship Status Dates Dr. Joann Live MD Primary care physician Active Start: April 01, 2025 End: April 01, 2025 Dr. Joann Live MD Referring Provider Active Start: April 01, 2025 End: April 01, 2025 Chayo Wayne CAN CRIMPER, CAN CRIMPER-C Attending physician Active Start: April 01, 2025 End: April 01, 2025 Team Status: Inactive Member Role/Relationship Status Dates Dr. Joann Live MD Primary care physician Active Start: April 01, 2025 End: April 01, 2025 Chayo Wayne CAN CRIMPER, CAN CRIMPER-C Attending physician Active Start: April 01, 2025 End: April 01, 2025 Chayo Wayne CAN CRIMPER, CAN CRIMPER-C Referring Provider Active Start: April 01, 2025 End: April 01, 2025 Team Status: Active Member Role/Relationship Status Dates Dr. Augustine Pickens MD Attending physician Active Start: April 01, 2025 Chayo Wayne CAN CRIMPER, CAN CRIMPER-C Referring Provider Active Start: April 01, 2025 Team Status: Inactive Member Role/Relationship Status Dates Dr. Joann Live MD Primary care physician Active Start: April 07, 2025 End: April 07, 2025 Dr. Joann Live MD Referring Provider Active Start: April 07, 2025 End: April 07, 2025 Chayo Wayne CAN CRIMPER, CAN CRIMPER-C Attending physician Active Start: April 07, 2025 End: April 07, 2025 Team Status: Inactive Member Role/Relationship Status Dates Dr. Joann Live MD Primary care physician Active Start: April 14, 2025 End: April 14, 2025 Dr. Joann Live MD Referring Provider Active Start: April 14, 2025 End: April 14, 2025 Dr. Ottoniel Cabrera MD Attending physician Active Start: April 14, 2025 End: April 14, 2025 Team Status: Active Member Role/Relationship Status Dates Dr. Joann Live MD Primary care physician Active Start: April 14, 2025 Dr. Mauri Tyler DO Attending physician Active Start: April 14, 2025 Dr. Mauri Tyler DO Referring Provider Active Start: April 14, 2025 Team Status: Inactive Member Role/Relationship Status Dates Dr. Joann Live MD Primary care physician Active Start: April 21, 2025 End: April 21, 2025 Dr. Joann Live MD Referring Provider Active Start: April 21, 2025 End: April 21, 2025 Chayo Black CAN CRIMPER, CAN CRIMPER-C Attending physician Active Start: April 21, 2025 End: April 21, 2025 Team Status: Active Member Role/Relationship Status Dates Dr. Joann Live MD Primary care physician Active Start: April 21, 2025 Dr. Mauri Tyler DO Attending physician Active Start: April 21, 2025 Dr. Mauri Tyler DO Referring Provider Active Start: April 21, 2025 Team Status: Inactive Member Role/Relationship Status Dates Dr. Joann Live MD Primary care physician Active Start: January 21, 2025 End: January 21, 2025 Negin Acevedo CAN CRIMPER, CAN CRIMPER-C Attending physician Active Start: January 21, 2025 End: January 21, 2025 Negin Acevedo CAN CRIMPER, CAN CRIMPER-C Referring Provider Active Start: January 21, 2025 End: January 21, 2025 Team Status: Inactive Member Role/Relationship Status Dates Dr. Joann Live MD Primary care physician Active Start: January 23, 2025 End: January 23, 2025 Negin Acevedo CAN CRIMPER, CAN CRIMPER-C Attending physician Active Start: January 23, 2025 End: January 23, 2025 Negin Acevedo CAN CRIMPER, CAN CRIMPER-C Referring Provider Active Start: January 23, 2025 End: January 23, 2025 Team Status: Active Member Role/Relationship Status Dates Dr. Joann Live MD Primary care physician Active Start: January 24, 2025 Negin Acevedo CAN CRIMPER, CAN CRIMPER-C Referring Provider Active Start: January 24, 2025 Negin Acevedo CAN CRIMPER, CAN CRIMPER-C Nurse Practitioner Active Start: January 24, 2025 Dr. Brodie Low DO Attending physician Active Start: January 24, 2025 Team Status: Inactive Member Role/Relationship Status Dates Dr. Joann Live MD Primary care physician Active Start: January 30, 2025 End: January 30, 2025 Dr. Joann Live MD Referring Provider Active Start: January 30, 2025 End: January 30, 2025 Negin Acevedo CAN CRIMPER, CAN CRIMPER-C Attending physician Active Start: January 30, 2025 End: January 30, 2025 Team Status: Inactive Member Role/Relationship Status Dates Dr. Joann Live MD Primary care physician Active Start: February 11, 2025 End: February 11, 2025 Negin Acevedo CAN CRIMPER, CAN CRIMPER-C Attending physician Active Start: February 11, 2025 End: February 11, 2025 Negin Acevedo CAN CRIMPER, CAN CRIMPER-C Referring Provider Active Start: February 11, 2025 End: February 11, 2025 Team Status: Inactive Member Role/Relationship Status Dates Dr. Joann Live MD Primary care physician Active Start: February 17, 2025 End: February 17, 2025 Negin Acevedo CAN CRIMPER, CAN CRIMPER-C Referring Provider Active Start: February 17, 2025 End: February 17, 2025 Dr. Ottoniel Cabrera MD Attending physician Active Start: February 17, 2025 End: February 17, 2025 Team Status: Inactive Member Role/Relationship Status Dates Dr. Joann Live MD Primary care physician Active Start: February 21, 2025 End: February 21, 2025 Dr. Joann Live MD Referring Provider Active Start: February 21, 2025 End: February 21, 2025 Dr. Mauri Tyler DO Attending physician Active Start: February 21, 2025 End: February 21, 2025 Team Status: Inactive Member Role/Relationship Status Dates Dr. Joann Live MD Primary care physician Active Start: February 25, 2025 End: February 25, 2025 Dr. Allan Fam MD Attending physician Active Start: February 25, 2025 End: February 25, 2025 Dr. Ottoniel Cabrera MD Referring Provider Active S tart: February 25, 2025 End: February 25, 2025 Team Status: Inactive Member Role/Relationship Status Dates Dr. Joann Live MD Primary care physician Active Start: February 28, 2025 End: February 28, 2025 Dr. Ottoniel Cabrera MD Attending physician Active Start: February 28, 2025 End: February 28, 2025 Dr. Ottoniel Cabrera MD Referring Provider Active S tart: February 28, 2025 End: February 28, 2025 Team Status: Inactive Member Role/Relationship Status Dates Dr. Joann Live MD Primary care physician Active Start: March 03, 2025 End: March 03, 2025 Dr. Allan Fam MD Attending physician Active Start: March 03, 2025 End: March 03, 2025 Dr. Allan Fam MD Referring Provider Active Start: March 03, 2025 End: March 03, 2025 Team Status: Active Member Role/Relationship Status Dates Dr. Joann Live MD Primary care physician Active Start: March 03, 2025 Dr. Allan Fam MD Attending physician Active Start: March 03, 2025 Dr. Allan Fam MD Referring Provider Active Start: March 03, 2025 Dr. Allan Fam MD Nurse Practitioner Active Start: March 03, 2025 Team Status: Inactive Member Role/Relationship Status Dates Dr. Joann Live MD Primary care physician Active Start: March 04, 2025 End: March 04, 2025 Dr. Joann Live MD Referring Provider Active Start: March 04, 2025 End: March 04, 2025 Chayo Black CAN CRIMPER, CAN CRIMPER-C Attending physician Active Start: March 04, 2025 End: March 04, 2025 Team Status: Inactive Member Role/Relationship Status Dates Dr. Joann Live MD Primary care physician Active Start: March 24, 2025 End: March 24, 2025 Dr. Joann Live MD Referring Provider Active Start: March 24, 2025 End: March 24, 2025 Dr. Ottoniel Cabrera MD Attending physician Active Start: March 24, 2025 End: March 24, 2025 Team Status: Inactive Member Role/Relationship Status Dates Dr. Joann Live MD Primary care physician Active Start: April 01, 2025 End: April 01, 2025 Dr. Joann Live MD Referring Provider Active Start: April 01, 2025 End: April 01, 2025 Chayo Wayne CAN CRIMPER, CAN CRIMPER-C Attending physician Active Start: April 01, 2025 End: April 01, 2025 Team Status: Inactive Member Role/Relationship Status Dates Dr. Joann Live MD Primary care physician Active Start: April 01, 2025 End: April 01, 2025 Chayo Wayne CAN CRIMPER, CAN CRIMPER-C Attending physician Active Start: April 01, 2025 End: April 01, 2025 Chayo Wayne CAN CRIMPER, CAN CRIMPER-C Referring Provider Active Start: April 01, 2025 End: April 01, 2025 Team Status: Active Member Role/Relationship Status Dates Dr. Augustine Pickens MD Attending physician Active Start: April 01, 2025 Chayo Wayne CAN CRIMPER, CAN CRIMPER-C Referring Provider Active Start: April 01, 2025 Team Status: Inactive Member Role/Relationship Status Dates Dr. Joann Live MD Primary care physician Active Start: April 07, 2025 End: April 07, 2025 Dr. Joann Live MD Referring Provider Active Start: April 07, 2025 End: April 07, 2025 Chayomaxine MarinoWayne CAN CRIMPER, CAN CRIMPER-C Attending physician Active Start: April 07, 2025 End: April 07, 2025 Team Status: Inactive Member Role/Relationship Status Dates Dr. Joann Live MD Primary care physician Active Start: April 14, 2025 End: April 14, 2025 Dr. Joann Live MD Referring Provider Active Start: April 14, 2025 End: April 14, 2025 Dr. Ottoniel Cabrera MD Attending physician Active Start: April 14, 2025 End: April 14, 2025 Team Status: Inactive Member Role/Relationship Status Dates Dr. Joann Live MD Primary care physician Active Start: April 21, 2025 End: April 21, 2025 Dr. Joann Live MD Referring Provider Active Start: April 21, 2025 End: April 21, 2025 Chayo Wayne CAN CRIMPER, CAN CRIMPER-C Attending physician Active Start: April 21, 2025 End: April 21, 2025 Team Status: Inactive Member Role/Relationship Status Dates Dr. Joann Live MD Primary care physician Active Start: April 22, 2025 End: April 22, 2025 Chayo Black NP, CAN CRIMPER-C Attending physician Active Start: April 22, 2025 End: April 22, 2025 Chayo Black NP CAN CRIMPER-C Referring Provider Active Start: April 22, 2025 End: April 22, 2025 Team Status: Inactive Member Role/Relationship Status Dates Dr. Joann Live MD Primary care physician Active Start: May 01, 2025 End: May 01, 2025 Dr. Joann Live MD Referring Provider Active Start: May 01, 2025 End: May 01, 2025 Chayo Black NP CAN CRIMPER-C Attending physician Active Start: May 01, 2025 End: May 01, 2025 Team Status: Inactive Member Role/Relationship Status Dates Dr. Joann Live MD Primary care physician Active Start: May 12, 2025 End: May 12, 2025 Dr. Joann Live MD Referring Provider Active Start: May 12, 2025 End: May 12, 2025 Dr. Ottoniel Cabrera MD Attending physician Active Start: May 12, 2025 End: May 12, 2025 Team Status: Active Member Role/Relationship Status Dates Dr. Joann Live MD Primary care physician Active Start: May 12, 2025 Dr. Mauri Tyler DO Attending physician Active Start: May 12, 2025 Dr. Mauri Tyler DO Referring Provider Active Start: May 12, 2025 Oil Dispatcher Relationship Specialty Start Date End Date Aleksandra Barajas RN Registered Nurse 03/06/25 Mauri Tyler DO [address] [facility] [place] [id number] Referring Provider Radiation Oncology 03/06/25 Goals (unrecognized section and content) Goals may [...] BE BASED ON THE PRIMARY CLINICAL RECORDS. [employer] [facility]. provides no warranty or guarantee of the accuracy or completeness of information in this document.
--- NOTE | 2025-06-10 07:41 | CT_ITS ---
PROCEDURE: CHEST WITH CONTRAST 06/10/2025 REASON FOR EXAM: NSCLC RESTAGING AFTER NEOADJUVANT CHEMO IO TECHNIQUE: Procedure Code: CTCHW Modality: CT Procedure: CHEST WITH CONTRAST Coronal and Sagittal reconstruction series were provided. CONTRAST: Isovue 370 VOLUME: 96 mL One or more dose reduction techniques were used (e.g., Automated exposure control, adjustment of the mA and/or kV according to patient size, use of iterative reconstruction technique). RADIATION DOSE SUMMARY: DLP: 256.75 mGycm COMPARISON: PET-CT 02/11/2025, limited comparison with low-dose CT lung screening 01/07/2025 FINDINGS: Lines/devices: Left central venous catheter extends to the superior vena cava. Pulmonary parenchyma: Interval decrease in right upper lobe soft tissue mass with spiculated margins, now measuring approximately 1.1 x 2.3 x 5.4 cm, previously 4.5 x 3.9 x 2.9 cm. There has been slight interval increase in craniocaudal dimension. Right hilar mass now measuring 0.8 x 1.2 cm, previously 1.2 x 1.4 cm (series 4, image 40). Redemonstrated 5 mm left lung apex nodule. There is no associated enhancement. Paraseptal emphysema at the lung apices. Airways: The central airways are patent. Pleural space: No pneumothorax or pleural effusion. Heart and pericardium: The heart is normal in size. No pericardial effusion. No visible coronary artery calcifications. Mediastinum and anna: Unremarkable. No lymphadenopathy. Thoracic vessels: The thoracic aorta and main pulmonary artery are normal in caliber. Atherosclerotic calcification of the thoracic aorta. Osseous structures: No aggressive osseous lesion. Straightening of the thoracic kyphosis. Upper visualized abdomen: Unremarkable. CT/Chest WITH Contrast IMPRESSION: 1. Compared to CT of the chest 01/07/2025, significant internal decrease in vol ume of the right upper lobe mass now measuring approximately 1 1.1 x 2.3 x 5.4 cm. Interval increase in craniocaudal extensio n, nonspecific and may reflect scarring tissue. Attention to short-term follow-up. 2. Interval decrease in size of right hilar mass. 3. No new pulmonary mass or suspicious nodule. 4. Pulmonary emphysema. Reading Location: [id number]
== END | disposition home or self-care (01) ==
LOC: CVS 07:11
PROVIDERS: PCP Family Medicine; Referring Provider Nurse Practitioner Adult Health; Visit Provider Nurse Practitioner Adult Health
DX: Z01.810 Encounter for preprocedural cardiovascular examination (principal); C34.11 Malignant neoplasm of upper lobe, right bronchus or lung
CPT/HCPCS: 71260; 93306; Q9967; A4216

== ENCOUNTER → 2025-07-02 | Outpatient (CLI) | payer MEDICAID, SELFPAY ==
[2025-07-02 11:17] LABS: Troponin T High Sensitivity < 6 ng/L (<=14)
== END | disposition home or self-care (01) ==
LOC: LAB 10:17
PROVIDERS: PCP Family Medicine; Referring Provider Student in an Organized Health Care Education/Training Program; Visit Provider Student in an Organized Health Care Education/Training Program
DX: I51.4 Myocarditis, unspecified (principal); R94.31 Abnormal electrocardiogram [ECG] [EKG]; Z51.81 Encounter for therapeutic drug level monitoring; Z79.899 Other long term (current) drug therapy
CPT/HCPCS: 36415; 84484

== ENCOUNTER 2025-07-14 09:03 | Outpatient (RCR) | payer MEDICAID, SELFPAY | END 2025-07-16 23:59 | LOC: NS 09:03 | PROVIDERS: PCP Family Medicine; Referring Provider Student in an Organized Health Care Education/Training Program; Visit Provider Student in an Organized Health Care Education/Training Program | DX: Z71.3 Dietary counseling and surveillance (principal); C34.90 Malignant neoplasm of unspecified part of unspecified bronchus or lung; C77.1 Secondary and unspecified malignant neoplasm of intrathoracic lymph nodes | CPT/HCPCS: 97803 ==